=== PATIENT | male | born 1955 | race Caucasian/White ===

== ENCOUNTER 2020-02-01 18:04 | Inpatient (IN) ==
[2020-02-01] MEDS ORDERED: SODIUM CHLORIDE 0.9% 1000ML 500 ML IV ONE (18:27)
[2020-02-01] MEDS ORDERED: CEFEPIME 2,000 MG/20 ML VIAL IV STA (18:27)
[2020-02-01] MEDS ORDERED: MULTI-VITAMIN INFUSION 10 ML, THIAMINE HCL 100 MG, FOLIC ACID 1 MG in SODIUM CHLORIDE 0... IV ONE (18:27)
[2020-02-01] MEDS ORDERED: DIPHTHERIA/TETANUS/PERTUSSIS 0.5 ML SYR/VIAL IM ONE (18:28)
--- NOTE | 2020-02-01 18:33 | Emergency Department Note ---
Impression & Plan Cellulitis of left lower leg, Acute hyperglycemia, Acute hyponatremia, Alcohol abuse ED Provider Note NAME: SLADE MENDOZA AGE: 64 SEX: M : 1955 ARRIVES VIA: Walk-In INFORMANT: [Patient][family] ED PROVIDER(S): [Ochoa Tucker MD] CHIEF COMPLAINT: Infection HISTORY OF PRESENT ILLNESS: The patient is a 64-year-old male who is diabetic. He is not on any medications and has not seen a doctor in some time. The patient apparently noticed some blisters on his left anterior foot about a week ago. The blisters broke open and he has been wearing socks for 4 days. Today, his significant other noticed he was wearing socks, this was somewhat unusual, she took off his sock and noticed the redness. The patient denies fever. He states that he does not have any pain in the area because he has severe neuropathy. There has been no cough or congestion or chest pain. No abdominal pain. The patient states that he does drink alcohol daily and typically, goes to a 30 pack of beer every 2 days. He did drink beer today and he states he feels intoxicated. Apparently, 1 of the patient's family members is a medical provider. A picture was sent to the provider and they referred the patient to the ED for possible hospitalization. Of note, the patient believes he is in need of a tetanus booster. REVIEW OF SYSTEMS: See HPI for pertinent positives and negatives. A total of ten systems were reviewed and were otherwise negative. PMHx/PSHx: See Below SOCIAL HISTORY: See Below. PHYSICAL EXAM: GENERAL: Patient is in no acute distress. HEENT: No acute trauma, normocephalic atraumatic, mucous membranes moist, no nasal congestion, no scleral icterus. NECK: No stridor, no adenopathy, no meningismus, trachea is midline. LUNGS: Clear to auscultation bilaterally, no wheeze, no rhonchi, breath sounds equal. HEART: Mildly tachycardic, regular rhythm, no murmurs. ABDOMEN: Soft, nontender, bowel sounds positive, no hernias, no peritonitis. EXTREMITIES: No cyanosis. The patient has warmth and erythema to the left foot extending to the distal left leg. There are open lesions to the dorsum of the left foot at the area of the ankle. There is some slight oozing of clear fluid. No deformity. No evidence for neurovascular compromise distally in the left lower extremity. NEUROLOGIC: Oriented x 3, she does slur his words slightly, no focal motor deficits. SKIN: No rash, no jaundice, no diaphoresis. DIFFERENTIAL DIAGNOSIS: Sepsis, UTI, pneumonia, metabolic abnormalities, electrolyte abnormalities, cellulitis, osteomyelitis, dehydration, alcohol intoxication, cardiac sources, intracerebral event, toxicologic, neurologic, as well as other pathologies. EMERGENCY DEPARTMENT COURSE/PROCEDURES: ECG: Indication was tachycardia. The ECG shows a normal sinus rhythm with a rate of 93. There is no ST elevation, there is an old inferior infarct and some poor R wave progression. No PVCs. The QTc is 437. Continuous Cardiac Monitoring: An order was placed for continuous cardiac monitoring. The monitor shows a rate of 84 with normal sinus rhythm. MEDICAL DECISION MAKING: There is no leukocytosis. The patient does have a mild anemia with a hemoglobin of 12.7. There is a normal platelet count. No coagulopathy. Sodium somewhat low at 128. Glucose was high at 331. Lactic acid level was somewhat elevated at 3.4, this elevation could be consistent with dehydration, his alcohol use or possibly infection. There was no worrisome liver enzyme elevation. Procalcitonin level was normal. Urinalysis does not show any evidence for infection. Alcohol level was quite high at 269. Left foot CT does not show osteomyelitis, cellulitis was suspected. Chest film does not show pneumonia or CHF. The patient received IV saline. He was given IV saline with multivitamins, thiamine and folate. He received IV insulin, he was given a tetanus booster IM. He was given IV cefepime as empiric antibiotic coverage. The patient's tachycardia has improved. He is resting comfortably. I do think he requires a hospital stay. He is dehydrated, he is diabetic with a high sugar. He has a significant left foot cellulitis. I spoke to the patient, I talked with case management. The on-call hospitalist was consulted. Past Med/Surg History Medical History Alcohol abuse (Acute) Diabetes mellitus Neuropathy Social History Smoking Status: Unknown if ever smoked Allergies Allergies Allergy/AdvReac Type Severity Reaction Status Date / Time No Known Allergies Allergy Unverified 02/01/20 19:05 Home Meds Home Medications Medication Instructions Recorded Confirmed No Known Home Medications 02/01/20 02/01/20 Results & Data (ED) Vital Signs Vital Signs - 24 hr 02/01/20 18:06 02/01/20 19:00 02/01/20 19:06 Temperature 37.3 C Temperature Source Oral Pulse Rate 104 H Pulse Rate [Apical] 92 H Pulse Rate from SpO2 Sensor Respiratory Rate 20 17 Respiratory Effort / Characteristics Non-Labored Respiratory Depth Normal Blood Pressure 132/78 Blood Pressure [Left Arm] 148/80 H Blood Pressure Mean 96 Blood Pressure Mean [Left Arm] 102 Blood Pressure Position [Left Arm] Pulse Oximetry 97 98 98 Oxygen Delivery Method Room Air Room Air Room Air Sepsis Recent Fever Within 48 Hours No Sepsis New/Unexplained Change in Mental Status No Sepsis Action Taken by Nursing No Action Required 02/01/20 19:30 02/01/20 20:00 02/01/20 20:30 Temperature Temperature Source Pulse Rate 84 88 85 Pulse Rate [Apical] Pulse Rate from SpO2 Sensor 91 H 88 84 Respiratory Rate 19 21 12 Respiratory Effort / Characteristics Respiratory Depth Blood Pressure 142/77 H 128/72 116/67 Blood Pressure [Left Arm] Blood Pressure Mean 92 98 80 Blood Pressure Mean [Left Arm] Blood Pressure Position [Left Arm] Pulse Oximetry 98 98 98 Oxygen Delivery Method Room Air Room Air Room Air Sepsis Recent Fever Within 48 Hours Sepsis New/Unexplained Change in Mental Status Sepsis Action Taken by Nursing 02/01/20 20:55 02/01/20 21:05 02/01/20 21:06 Temperature Temperature Source Pulse Rate 89 Pulse Rate [Apical] 90 Pulse Rate from SpO2 Sensor 93 H 90 Respiratory Rate 16 12 Respiratory Effort / Characteristics Respiratory Depth Blood Pressure 149/81 H 143/82 H Blood Pressure [Left Arm] 143/82 H Blood Pressure Mean 90 96 Blood Pressure Mean [Left Arm] 102 Blood Pressure Position [Left Arm] Sitting Pulse Oximetry 97 97 98 Oxygen Delivery Method Room Air Sepsis Recent Fever Within 48 Hours Sepsis New/Unexplained Change in Mental Status Sepsis Action Taken by Nursing 02/01/20 21:30 Temperature Temperature Source Pulse Rate 93 H Pulse Rate [Apical] Pulse Rate from SpO2 Sensor Respiratory Rate 15 Respiratory Effort / Characteristics Respiratory Depth Blood Pressure 149/82 H Blood Pressure [Left Arm] Blood Pressure Mean 89 Blood Pressure Mean [Left Arm] Blood Pressure Position [Left Arm] Pulse Oximetry Oxygen Delivery Method Sepsis Recent Fever Within 48 Hours Sepsis New/Unexplained Change in Mental Status Sepsis Action Taken by [facility] Medications Current Medication List: was personally reviewed by me Laboratory Data Attestation: I reviewed the patient's lab results. Result diagrams: 02/01/20 18:42 02/01/20 18:42 Lab Results 02/01/20 02/01/20 02/01/20 Range/Units 18:14 18:42 18:42 WBC (4.8-10.8) K/uL RBC (4.7-6.1) M/uL Hgb (14.0-18.0) g/dL Hct (42-52) % MCV (80-100) fL MCH (25-34) pg MCHC (32-36) g/dL RDW Std Deviation (36.4-46.3) fL RDW Coeff of Mau (11.5-14.5) % Plt Count (130-400) K/uL MPV (7.4-10.4) fL Immature Gran % (Auto) % Neut % (Auto) % Lymph % (Auto) % [place] % (Auto) % Eos % (Auto) % Baso % (Auto) % Neut # (Auto) (1.4-6.5) K/uL Lymph # (Auto) (1.2-3.4) K/uL [place] # (Auto) (0.11-0.59) K/uL Eos # (Auto) (0-0.5) K/uL Baso # (Auto) (0-0.2) K/uL Immature Gran # (Auto) (0.00-0.02) K/uL PT (9.0-12.0) Seconds INR (0.9-1.1) APTT (21.0-31.0) Seconds PTT Ratio Sodium (136-145) mmol/L Potassium (3.5-5.1) mmol/L Chloride (98-107) mmol/L Carbon Dioxide (21-32) mmol/L Anion Gap (3-11) BUN (7-18) mg/dl Creatinine (0.6-1.4) mg/dl Est Cr Clr Drug Dosing Est GFR ( Amer) Est GFR (Non-Af Amer) BUN/Creatinine Ratio (10-20) Glucose (70-99) mg/dl POC Glucose (70-99) mg/dl Lactate (0.4-2.0) mmol/L Calcium (8.5-10.1) mg/dl Magnesium (1.8-2.4) mg/dl Total Bilirubin (0.2-1) mg/dl AST (15-37) U/L ALT (12-78) U/L Alkaline Phosphatase (45-117) U/L Total Protein (6.4-8.2) gm/dl Albumin (3.4-5.0) gm/dl Globulin (2.5-4.0) gm/dl Albumin/Globulin Ratio (0.9-2) Beta-Hydroxybutyric Acd (0.2-2.81) mg/dl Procalcitonin < 0.05 (0-0.5) ng/ml Urine Color Yellow Urine Appearance Clear (Clear) Urine pH 5.0 (4.5-7.5) Ur Specific Helix 1.017 (1.000-1.030) Urine Protein Negative (Negative) Urine Glucose (UA) 3+ H (Negative) Urine Ketones Negative (Negative) Urine Blood Trace H (Negative) Urine Nitrite Negative (Negative) Urine Bilirubin Negative (Negative) Urine Urobilinogen Negative (Negative) Ur Leukocyte Esterase Negative (Negative) Urine WBC (Auto) 0 (0-5) /hpf Urine RBC (Auto) 0-4 (0-4) /hpf U Hyaline Cast (Auto) 0 (0-5) /lpf U Epithel Cells (Auto) 0-5 (0-5) /lpf Urine Bacteria (Auto) Negative (Negative) Ethyl Alcohol mg/dL 269.5 H (0-3) mg/dl 02/01/20 02/01/20 02/01/20 Range/Units 18:42 18:42 18:42 WBC 4.95 (4.8-10.8) K/uL RBC 4.13 L (4.7-6.1) M/uL Hgb 12.7 L (14.0-18.0) g/dL Hct 34.3 L (42-52) % MCV 83.1 (80-100) fL MCH 30.8 (25-34) pg MCHC 37.0 H (32-36) g/dL RDW Std Deviation 36.7 (36.4-46.3) fL RDW Coeff of Mau 12.1 (11.5-14.5) % Plt Count 181 (130-400) K/uL MPV 8.9 (7.4-10.4) fL Immature Gran % (Auto) 0.8 % Neut % (Auto) 55.0 % Lymph % (Auto) 29.7 % [place] % (Auto) 10.1 % Eos % (Auto) 4.2 % Baso % (Auto) 0.2 % Neut # (Auto) 2.72 (1.4-6.5) K/uL Lymph # (Auto) 1.47 (1.2-3.4) K/uL [place] # (Auto) 0.50 (0.11-0.59) K/uL Eos # (Auto) 0.21 (0-0.5) K/uL Baso # (Auto) 0.01 (0-0.2) K/uL Immature Gran # (Auto) 0.04 H (0.00-0.02) K/uL PT 10.5 (9.0-12.0) Seconds INR 1.0 (0.9-1.1) APTT 27.9 (21.0-31.0) Seconds PTT Ratio 1.0 Sodium 128 L (136-145) mmol/L Potassium 4.1 (3.5-5.1) mmol/L Chloride 95 L (98-107) mmol/L Carbon Dioxide 21 (21-32) mmol/L Anion Gap 12.0 H (3-11) BUN 9 (7-18) mg/dl Creatinine 0.96 (0.6-1.4) mg/dl Est Cr Clr Drug Dosing Not Reportable Est GFR ( Amer) 97.1 Est GFR (Non-Af Amer) 83.8 BUN/Creatinine Ratio 9.3 L (10-20) Glucose 331 H* (70-99) mg/dl POC Glucose (70-99) mg/dl Lactate (0.4-2.0) mmol/L Calcium 8.7 (8.5-10.1) mg/dl Magnesium 1.9 (1.8-2.4) mg/dl Total Bilirubin 0.3 (0.2-1) mg/dl AST 20 (15-37) U/L ALT 30 (12-78) U/L Alkaline Phosphatase 78 (45-117) U/L Total Protein 7.6 (6.4-8.2) gm/dl Albumin 2.9 L (3.4-5.0) gm/dl Globulin 4.7 H (2.5-4.0) gm/dl Albumin/Globulin Ratio 0.6 L (0.9-2) Beta-Hydroxybutyric Acd 6.19 H (0.2-2.81) mg/dl Procalcitonin (0-0.5) ng/ml Urine Color Urine Appearance (Clear) Urine pH (4.5-7.5) Ur Specific Helix (1.000-1.030) Urine Protein (Negative) Urine Glucose (UA) (Negative) Urine Ketones (Negative) Urine Blood (Negative) Urine Nitrite (Negative) Urine Bilirubin (Negative) Urine Urobilinogen (Negative) Ur Leukocyte Esterase (Negative) Urine WBC (Auto) (0-5) /hpf Urine RBC (Auto) (0-4) /hpf U Hyaline Cast (Auto) (0-5) /lpf U Epithel Cells (Auto) (0-5) /lpf Urine Bacteria (Auto) (Negative) Ethyl Alcohol mg/dL (0-3) mg/dl 02/01/20 02/01/20 02/01/20 Range/Units 18:42 21:15 21:15 WBC (4.8-10.8) K/uL RBC (4.7-6.1) M/uL Hgb (14.0-18.0) g/dL Hct (42-52) % MCV (80-100) fL MCH (25-34) pg MCHC (32-36) g/dL RDW Std Deviation (36.4-46.3) fL RDW Coeff of Mau (11.5-14.5) % Plt Count (130-400) K/uL MPV (7.4-10.4) fL Immature Gran % (Auto) % Neut % (Auto) % Lymph % (Auto) % [place] % (Auto) % Eos % (Auto) % Baso % (Auto) % Neut # (Auto) (1.4-6.5) K/uL Lymph # (Auto) (1.2-3.4) K/uL [place] # (Auto) (0.11-0.59) K/uL Eos # (Auto) (0-0.5) K/uL Baso # (Auto) (0-0.2) K/uL Immature Gran # (Auto) (0.00-0.02) K/uL PT (9.0-12.0) Seconds INR (0.9-1.1) APTT (21.0-31.0) Seconds PTT Ratio Sodium (136-145) mmol/L Potassium (3.5-5.1) mmol/L Chloride (98-107) mmol/L Carbon Dioxide (21-32) mmol/L Anion Gap (3-11) BUN (7-18) mg/dl Creatinine (0.6-1.4) mg/dl Est Cr Clr Drug Dosing Est GFR ( Amer) Est GFR (Non-Af Amer) BUN/Creatinine Ratio (10-20) Glucose (70-99) mg/dl POC Glucose 153 H (70-99) mg/dl Lactate 3.4 H* 3.2 H* (0.4-2.0) mmol/L Calcium (8.5-10.1) mg/dl Magnesium (1.8-2.4) mg/dl Total Bilirubin (0.2-1) mg/dl AST (15-37) U/L ALT (12-78) U/L Alkaline Phosphatase (45-117) U/L Total Protein (6.4-8.2) gm/dl Albumin (3.4-5.0) gm/dl Globulin (2.5-4.0) gm/dl Albumin/Globulin Ratio (0.9-2) Beta-Hydroxybutyric Acd (0.2-2.81) mg/dl Procalcitonin (0-0.5) ng/ml Urine Color Urine Appearance (Clear) Urine pH (4.5-7.5) Ur Specific Helix (1.000-1.030) Urine Protein (Negative) Urine Glucose (UA) (Negative) Urine Ketones (Negative) Urine Blood (Negative) Urine Nitrite (Negative) Urine Bilirubin (Negative) Urine Urobilinogen (Negative) Ur Leukocyte Esterase (Negative) Urine WBC (Auto) (0-5) /hpf Urine RBC (Auto) (0-4) /hpf U Hyaline Cast (Auto) (0-5) /lpf U Epithel Cells (Auto) (0-5) /lpf Urine Bacteria (Auto) (Negative) Ethyl Alcohol mg/dL (0-3) mg/dl 02/01/20 Range/Units 21:20 WBC (4.8-10.8) K/uL RBC (4.7-6.1) M/uL Hgb (14.0-18.0) g/dL Hct (42-52) % MCV (80-100) fL MCH (25-34) pg MCHC (32-36) g/dL RDW Std Deviation (36.4-46.3) fL RDW Coeff of Mau (11.5-14.5) % Plt Count (130-400) K/uL MPV (7.4-10.4) fL Immature Gran % (Auto) % Neut % (Auto) % Lymph % (Auto) % [place] % (Auto) % Eos % (Auto) % Baso % (Auto) % Neut # (Auto) (1.4-6.5) K/uL Lymph # (Auto) (1.2-3.4) K/uL [place] # (Auto) (0.11-0.59) K/uL Eos # (Auto) (0-0.5) K/uL Baso # (Auto) (0-0.2) K/uL Immature Gran # (Auto) (0.00-0.02) K/uL PT (9.0-12.0) Seconds INR (0.9-1.1) APTT (21.0-31.0) Seconds PTT Ratio Sodium (136-145) mmol/L Potassium (3.5-5.1) mmol/L Chloride (98-107) mmol/L Carbon Dioxide (21-32) mmol/L Anion Gap (3-11) BUN (7-18) mg/dl Creatinine (0.6-1.4) mg/dl Est Cr Clr Drug Dosing Est GFR ( Amer) Est GFR (Non-Af Amer) BUN/Creatinine Ratio (10-20) Glucose (70-99) mg/dl POC Glucose 182 H (70-99) mg/dl Lactate (0.4-2.0) mmol/L Calcium (8.5-10.1) mg/dl Magnesium (1.8-2.4) mg/dl Total Bilirubin (0.2-1) mg/dl AST (15-37) U/L ALT (12-78) U/L Alkaline Phosphatase (45-117) U/L Total Protein (6.4-8.2) gm/dl Albumin (3.4-5.0) gm/dl Globulin (2.5-4.0) gm/dl Albumin/Globulin Ratio (0.9-2) Beta-Hydroxybutyric Acd (0.2-2.81) mg/dl Procalcitonin (0-0.5) ng/ml Urine Color Urine Appearance (Clear) Urine pH (4.5-7.5) Ur Specific Helix (1.000-1.030) Urine Protein (Negative) Urine Glucose (UA) (Negative) Urine Ketones (Negative) Urine Blood (Negative) Urine Nitrite (Negative) Urine Bilirubin (Negative) Urine Urobilinogen (Negative) Ur Leukocyte Esterase (Negative) Urine WBC (Auto) (0-5) /hpf Urine RBC (Auto) (0-4) /hpf U Hyaline Cast (Auto) (0-5) /lpf U Epithel Cells (Auto) (0-5) /lpf Urine Bacteria (Auto) (Negative) Ethyl Alcohol mg/dL (0-3) mg/dl Administered Medications Discontinued Medications Diphtheria/Pertussis/Tetanus Vacc (Adacel) 0.5 ml IM .ONCE ONE Stop: 02/01/20 18:29 Last Admin: 02/01/20 19:11 Dose: 0.5 ml Documented by: [id number] Multivitamins 10 ml/ Thiamine HCl 100 mg/ Folic Acid 1 mg/Sodium Chloride 1, 011.2 mls @ 1,011.2 mls/hr IV .Q1H ONE Stop: 02/01/20 19:26 Last Infusion: 02/01/20 20:10 Dose: 0 mls/hr Documented by: [id number] Admin: 02/01/20 19:10 Dose: 1,011.2 mls/hr Documented by: [id number] Sodium Chloride (Nss 1000ml) 500 mls @ 999 mls/hr IV .Q31M ONE Stop: 02/01/20 18:57 Last Infusion: 02/01/20 19:38 Dose: 0 mls/hr Documented by: [id number] Admin: 07/28/20 19:07 Dose: 999 mls/hr Documented by: [id number] Cefepime HCl (Maxipime) 2,000 mg in 20 mls @ 5 mls/min IV NOW STA; Protocol Stop: 02/01/20 18:30 Last Admin: 02/01/20 19:08 Dose: 5 mls/min Documented by: [id number] Insulin Human Regular (Novolin R U-100 Per Unit) 8 units IV NOW STA Stop: 02/01/20 19:26 Last Admin: 02/01/20 19:56 Dose: 8 units Documented by: [id number] Cosigned by: [id number] Imaging Data Radiologist's Impression: XR chest 1V portable HISTORY: 64 years-old Male SEPSIS acute sepsis COMPARISON: Chest radiograph 01/12/2012 TECHNIQUE: Portable AP view of the chest FINDINGS: Mild cardiomegaly. Prior median sternotomy. No pneumothorax, pleural effusion or overt pulmonary edema. Minimal left lung base scarring/atelectasis. Degenerative changes of the shoulders and spine. IMPRESSION: No acute process. CT foot LT wo con HISTORY: 64 years-old Male poss osteo acute left foot pain and swelling with possible osteomyelitis COMPARISON: None TECHNIQUE: Multiple axial CT images of the left foot were obtained without the use of IV contrast. A dose lowering technique was used consistent with the principals of LIMA. FINDINGS: There is moderate diffuse subcutaneous edema of the lower leg, ankle and foot. Arterial calcifications. No drainable fluid collection. The tendons and ligaments are better evaluated by MRI. No gross ligamentous tear identified. No large joint effusion. Mild to moderate multifocal osteoarthritis. Corticated ossification adjacent to the medial malleolus is suggestive of remote avulsion fracture. There is marginal spurring of the medial talar dome without definitive osteochondral defect. Moderate sized enthesophyte of the calcaneus. No acute fracture, dislocation or osseous erosion to suggest osteomyelitis. Lisfranc articulation is intact. Subcentimeter bone island of the first metatarsal. IMPRESSION: 1. No acute fracture, dislocation or osseous erosion to suggest osteomyelitis. 2. Diffuse subcutaneous edema of the lower leg, foot and ankle suggests cellulitis, venous stasis or lymphedema. No drainable fluid collection. 3. Osteoarthritis as above. Blood Pressure Blood Pressure Findings: Elevated blood pressure Blood Pressure Disposition: further management by hospitalist Discharge Plan Visit Data Chief Complaint: Infection Stated Complaint: WATER BLISTER ON LEFT FOOT ED Provider: Ochoa Tucker Discharge Problem: Cellulitis of left lower leg, Acute hyperglycemia, Acute hyponatremia, Alcohol abuse Patient Disposition: Admitted As Inpatient Condition: Fair Forms Stand Alone Forms: XbyMe Prescriptions Prescriptions: No Action No Known Home Medications RF: 0 Referrals Referrals: PCP,NO [Primary Care Provider] -
[2020-02-01 18:38] LABS: Appearance Urine Clear (Clear); Bilirubin Urine Negative (Negative); Blood Urine Trace (Negative); Color Urine Yellow; Glucose Urine UA 3+ (Negative); Ketones Urine Negative (Negative); Leukocyte Esterase Urine Negative (Negative); Nitrite Urine Negative (Negative); Protein Urine Negative (Negative); Specific Gravity Urine 1.017 (1.000-1.030); Urobilinogen Urine Negative (Negative)
[2020-02-01 18:49] LABS: Bacteria Urine Automated Negative (Negative); Cast Urine Automated 0 /lpf (0-5); Epithelial Cell Urine Auto 0-5 /lpf (0-5); RBC Urine Automated 0-4 /hpf (0-4); WBC Urine Automated 0 /hpf (0-5)
[2020-02-01 18:54] LABS: Basophils # (auto) 0.01 K/uL (0-0.2); Basophils % (auto) 0.2 %; Eosinophils # (auto) 0.21 K/uL (0-0.5); Eosinophils % (auto) 4.2 %; Hematocrit (blood only) 34.3 % (42-52); Hemoglobin 12.7 g/dL (14.0-18.0); Immature Granulocytes # (auto) 0.04 K/uL (0.00-0.02); Immature Granulocytes % (auto) 0.8 %; Lymphocytes # (auto) 1.47 K/uL (1.2-3.4); Lymphocytes % (auto) 29.7 %; Mean Corpuscular Hemoglobin 30.8 pg (25-34); Mean Corpuscular Volume 83.1 fL (80-100); Mean Platelet Volume 8.9 fL (7.4-10.4); Monocytes % (auto) 10.1 %; Neutrophils # (auto) 2.72 K/uL (1.4-6.5); Platelet Count 181 K/uL (130-400); RDW Coefficient of Variation 12.1 % (11.5-14.5); RDW Standard Deviation 36.7 fL (36.4-46.3); Red Blood Count 4.13 M/uL (4.7-6.1); White Blood Count 4.95 K/uL (4.8-10.8)
[2020-02-01 19:04] LABS: Partial Thromboplastin Time 27.9 Seconds (21.0-31.0); Prothrombin Time 10.5 Seconds (9.0-12.0)
--- NOTE | 2020-02-01 19:06 | XRay Report ---
XR chest 1V portable HISTORY: 64 years-old Male SEPSIS acute sepsis COMPARISON: Chest radiograph 01/12/2012 TECHNIQUE: Portable AP view of the chest FINDINGS: Mild cardiomegaly. Prior median sternotomy. No pneumothorax, pleural effusion or overt pulmonary teodora a. Minimal left lung base scarring/atelectasis. Degenerative changes of the shoulders and spine. IMPRESSION: No acute process. ACT 112: Negative or not required by law. The above report was generated using voice recognition software. It may contain grammatical, syntax o r spelling errors. Electronically signed by: Romero Veloz M.D. 02/01/2020 7:04 PM
[2020-02-01 19:17] LABS: Alanine Aminotransferase 30 U/L (12-78); Albumin Globulin Ratio 0.6 (0.9-2); Albumin Level 2.9 gm/dl (3.4-5.0); Alkaline Phosphatase 78 U/L (45-117); Aspartate Aminotransferase 20 U/L (15-37); BUN Creatinine Ratio 9.3 (10-20); Bilirubin,Total 0.3 mg/dl (0.2-1); Blood Urea Nitrogen 9 mg/dl (7-18); Calcium 8.7 mg/dl (8.5-10.1); Carbon Dioxide 21 mmol/L (21-32); Chloride 95 mmol/L (98-107); Est GFR (African American) 97.1; Est GFR (Non-African American) 83.8; Globulin 4.7 gm/dl (2.5-4.0); Glucose 331 mg/dl (70-99); Magnesium 1.9 mg/dl (1.8-2.4); Potassium 4.1 mmol/L (3.5-5.1); Sodium 128 mmol/L (136-145); Total Protein 7.6 gm/dl (6.4-8.2)
[2020-02-01] MEDS ORDERED: NovoLIN-R INSULIN PER UNIT CHARGE IV STA (19:25)
[2020-02-01 19:36] LABS: Beta-Hydroxybutyrate 6.19 mg/dl (0.2-2.81)
--- NOTE | 2020-02-01 21:05 | CT Scan Report ---
CT foot LT wo con HISTORY: 64 years-old Male poss osteo acute left foot pain and swelling with possible osteomyelitis COMPARISON: None TECHNIQUE: Multiple axial CT images of the left foot were obtained without the use of IV contrast. A dose lowering technique was used consistent with the principals of [place]. FINDINGS: There is moderate diffuse subcutaneous edema of the lower leg, ankle and foot. Arterial calcification s. No drainable fluid collection. The tendons and ligaments are better evaluated by MRI. No gross lig amentous tear identified. No large joint effusion. Mild to moderate multifocal osteoarthritis. Corticated ossification adjacent to the medial malleolus is suggestive of remote avulsion fracture. There is marginal spurring of the medial talar dome withou t definitive osteochondral defect. Moderate sized enthesophyte of the calcaneus. No acute fracture, d islocation or osseous erosion to suggest osteomyelitis. Lisfranc articulation is intact. Subcentimete r bone island of the first metatarsal. IMPRESSION: 1. No acute fracture, dislocation or osseous erosion to suggest osteomyelitis. 2. Diffuse subcutaneous edema of the lower leg, foot and ankle suggests cellulitis, venous stasis or lymphedema. No drainable fluid collection. 3. Osteoarthritis as above. ACT 112: Negative or not required by law. The above report was generated using voice recognition software. It may contain grammatical, syntax o r spelling errors. Electronically signed by: Romero Veloz M.D. 02/01/2020 9:04 PM
[2020-02-02] MEDS ORDERED: VANCOMYCIN CONSULT ACTIVE PRN (00:10)
[2020-02-02] MEDS ORDERED: LORazepam 1 MG/2 ML VIAL IV PRN (00:10)
[2020-02-02] MEDS ORDERED: GLUCAGON FOR INJ 1 MG VIAL SQ PRN (00:10)
[2020-02-02] MEDS ORDERED: CARBOHYDRATES FOR HYPOGLYCEMIA PO PRN (00:10)
[2020-02-02] MEDS ORDERED: DEXTROSE 50% 50 ML SYRINGE IV PRN (00:10)
[2020-02-02] MEDS ORDERED: ACETAMINOPHEN 325 MG TAB PO PRN (00:10)
[2020-02-02] MEDS ORDERED: ONDANSETRON INJ 2 MG/ML 2 ML VIAL IV PRN (00:10)
[2020-02-02] MEDS ORDERED: GLUCOSE 10 TABS/TUBE PO PRN (00:10)
[2020-02-02] MEDS ORDERED: GLUCOSE 40% GEL 15 GM TUBE PO PRN (00:10)
[2020-02-02] MEDS ORDERED: VANCOMYCIN HCL 2,000 MG in SODIUM CHLORIDE 0.9% 500 ML IV ONE (00:30)
[2020-02-02] MEDS: FOLIC ACID 1 MG TAB PO SCH ×2 (01:10→07:58)
[2020-02-02] MEDS: THIAMINE HCL 100 MG TAB PO SCH ×2 (01:10→07:59)
[2020-02-02] MEDS: SODIUM CHLORIDE 0.9% 1000ML 1,000 ML IV SCH ×2 (01:12→13:19)
[2020-02-02] MEDS ORDERED: INSULIN HUMAN REGULAR PER UNIT 8 UNITS in SYRINGE 7.92 ML IV ONE ×2 (01:15→17:00)
--- NOTE | 2020-02-02 01:48 | History & Physical Report ---
Date of Service February 01, 2020 Assessment & Plan (1) Cellulitis of left lower leg: Foot infection in diabetic. Afebrile, hemodynamically stable, non-toxic in appearance. No osteomyelitis noted on imaging -Admit to medical floor -Monitor area of redness -Follow cultures -Vancomycin and Cefepime -MRSA nasal swab Present on Admission?: Yes (2) Diabetes mellitus: Longstanding history of DM, not on any medication. Elevated BS on arrival -Check HgbA1C -Lantus 5u BID with ISS, goal blood sugar 100-140 -Diabetes education -Patient will most likely need to be discharged with insulin -ASA and Atorvastatin initiated as well Present on Admission?: Yes (3) Alcohol abuse: (4) CAD (coronary artery disease): Patient denies CP. EKG without ischemic changes. He is currently not on any cardiac medications -AIC and Lipid profile -ASA initiated -Atorvastatin initiated -Patient will most likely need a beta alysia and Panfilo-inhibitor as well as medical followup Present on Admission?: Yes Admission and Anticipated Discharge Date Admission Date: February 01, 2020 History of Present Illness Chief Complaint: foot ulceration Primary Care Provider: NO PCP Sumeet Jean is a 64yo C male with history of DM and CAD s/p CABG x 3V performed in 2003 at [facility]. Patient does not follow with a PCP or take any medications. He does not check his blood sugars or follow a diabetic diet either. He presents today with infection and ulcers of LLE. He reports de veloping blisters on the LLE approximately 1 week ago. The blisters ruptured and then his foot became red and swollen. He denies fevers/chills/body aches/nausea/vomiting/diarrhea/constipation. He denies CP/palpitations/SOB/cough. No concerns for exposure to Covid-19. Patient is a heavy drinker, approximately 15 beers per day. He denies history of EtOH withdrawal symptoms but states that he cannot remember the last time he quit drinking. ER Course: Cefepime, Insulin 8u IV, Banana bag, NSS Allergies Allergy/AdvReac Type Severity Reaction Status Date / Time No Known Allergies Allergy Unverified 02/01/20 19:05 Home Medications Home Medications Medication Instructions Recorded Confirmed Type No Known Home Medications 02/01/20 02/01/20 History Past Med/Surg History Medical History (Updated 02/02/20 @ 01:55 by Roxie Connelly DO) Alcohol abuse (Acute) Diabetes mellitus Neuropathy Surgical History (Updated 02/02/20 @ 01:46 by Roxie Connelly DO) History of coronary artery bypass graft x 3 Family History (Updated 02/02/20 @ 01:46 by Roxie Connelly DO) Other No significant family history Social History (Updated 02/02/20 @ 01:47 by Roxie Connelly DO) Smoking Status: Unknown if ever smoked Hx Alcohol Use: Yes Hx Substance Use: No Review of Systems Review of Systems: All systems reviewed & are unremarkable except as noted in HPI & below Physical Exam Physical Exam: General: patient resting comfortably, NAD, non-toxic in appearance, intoxicated Skin: warm, dry, eschar on LLE dorsum of ankle, redness and warmth of foot, no crepitus/bullae/lymphangitic streaking HEENT: NC/AT, PERRL, EOMI, anicteric sclera, conjunctiva without injection, external ear normal to inspection and nontender, nares patent, moist mucus membranes, dentition intact, no oropharyngeal lesions, neck supple, trachea midline, no LAD, no thyromegaly, no JVD Heart: +S1/S2, regular, no m/r/g Lungs: equal air entry bilaterally, no rales/rhonchi/wheezes Abd: +BS, soft, NT/ND, no masses/organomegaly/ascites Ext: warm, 2+ pulses in UE/LE bilaterally, no clubbing/cyanosis or edema Neuro: nonfocal, patient AA&O x 4, speech intact, no facial droop, moving all extremities on command with equal strength 5/5 Results & Data Results & Data ([facility]) Vital Signs (Past 12 Hours) Vital Signs Temp Pulse Pulse Resp BP BP Pulse Ox 02/01/20 23:00 90 26 H 133/79 02/01/20 22:30 87 14 139/75 97 02/01/20 22:00 90 15 127/81 97 02/01/20 21:30 93 H 15 149/82 H 02/01/20 21:06 89 12 143/82 H 98 02/01/20 21:05 149/81 H 97 02/01/20 20:55 90 16 143/82 H 97 02/01/20 20:30 85 12 116/67 98 02/01/20 20:00 88 21 128/72 98 02/01/20 19:30 84 19 142/77 H 98 02/01/20 19:06 92 H 17 148/80 H 98 02/01/20 19:00 98 02/01/20 18:06 37.3 C 104 H 20 132/78 97 Laboratory Results Lab Results 02/01/20 02/01/20 02/01/20 Range/Units 18:14 18:42 18:42 WBC (4.8-10.8) K/uL RBC (4.7-6.1) M/uL Hgb (14.0-18.0) g/dL Hct (42-52) % MCV (80-100) fL MCH (25-34) pg MCHC (32-36) g/dL RDW Std Deviation (36.4-46.3) fL RDW Coeff of Mau (11.5-14.5) % Plt Count (130-400) K/uL MPV (7.4-10.4) fL Immature Gran % (Auto) % Neut % (Auto) % Lymph % (Auto) % Ramsey % (Auto) % Eos % (Auto) % Baso % (Auto) % Neut # (Auto) (1.4-6.5) K/uL Lymph # (Auto) (1.2-3.4) K/uL Ramsey # (Auto) (0.11-0.59) K/uL Eos # (Auto) (0-0.5) K/uL Baso # (Auto) (0-0.2) K/uL Immature Gran # (Auto) (0.00-0.02) K/uL PT (9.0-12.0) Seconds INR (0.9-1.1) APTT (21.0-31.0) Seconds PTT Ratio Sodium (136-145) mmol/L Potassium (3.5-5.1) mmol/L Chloride (98-107) mmol/L Carbon Dioxide (21-32) mmol/L Anion Gap (3-11) BUN (7-18) mg/dl Creatinine (0.6-1.4) mg/dl Est Cr Clr Drug Dosing Est GFR ( Amer) Est GFR (Non-Af Amer) BUN/Creatinine Ratio (10-20) Glucose (70-99) mg/dl POC Glucose (70-99) mg/dl Lactate (0.4-2.0) mmol/L Calcium (8.5-10.1) mg/dl Magnesium (1.8-2.4) mg/dl Total Bilirubin (0.2-1) mg/dl AST (15-37) U/L ALT (12-78) U/L Alkaline Phosphatase (45-117) U/L Total Protein (6.4-8.2) gm/dl Albumin (3.4-5.0) gm/dl Globulin (2.5-4.0) gm/dl Albumin/Globulin Ratio (0.9-2) Beta-Hydroxybutyric Acd (0.2-2.81) mg/dl Procalcitonin < 0.05 (0-0.5) ng/ml Urine Color Yellow Urine Appearance Clear (Clear) Urine pH 5.0 (4.5-7.5) Ur Specific Drummond 1.017 (1.000-1.030) Urine Protein Negative (Negative) Urine Glucose (UA) 3+ H (Negative) Urine Ketones Negative (Negative) Urine Blood Trace H (Negative) Urine Nitrite Negative (Negative) Urine Bilirubin Negative (Negative) Urine Urobilinogen Negative (Negative) Ur Leukocyte Esterase Negative (Negative) Urine WBC (Auto) 0 (0-5) /hpf Urine RBC (Auto) 0-4 (0-4) /hpf U Hyaline Cast (Auto) 0 (0-5) /lpf U Epithel Cells (Auto) 0-5 (0-5) /lpf Urine Bacteria (Auto) Negative (Negative) Ethyl Alcohol mg/dL 269.5 H (0-3) mg/dl 02/01/20 02/01/20 02/01/20 Range/Units 18:42 18:42 18:42 WBC 4.95 (4.8-10.8) K/uL RBC 4.13 L (4.7-6.1) M/uL Hgb 12.7 L (14.0-18.0) g/dL Hct 34.3 L (42-52) % MCV 83.1 (80-100) fL MCH 30.8 (25-34) pg MCHC 37.0 H (32-36) g/dL RDW Std Deviation 36.7 (36.4-46.3) fL RDW Coeff of Mau 12.1 (11.5-14.5) % Plt Count 181 (130-400) K/uL MPV 8.9 (7.4-10.4) fL Immature Gran % (Auto) 0.8 % Neut % (Auto) 55.0 % Lymph % (Auto) 29.7 % Ramsey % (Auto) 10.1 % Eos % (Auto) 4.2 % Baso % (Auto) 0.2 % Neut # (Auto) 2.72 (1.4-6.5) K/uL Lymph # (Auto) 1.47 (1.2-3.4) K/uL Ramsey # (Auto) 0.50 (0.11-0.59) K/uL Eos # (Auto) 0.21 (0-0.5) K/uL Baso # (Auto) 0.01 (0-0.2) K/uL Immature Gran # (Auto) 0.04 H (0.00-0.02) K/uL PT 10.5 (9.0-12.0) Seconds INR 1.0 (0.9-1.1) APTT 27.9 (21.0-31.0) Seconds PTT Ratio 1.0 Sodium 128 L (136-145) mmol/L Potassium 4.1 (3.5-5.1) mmol/L Chloride 95 L (98-107) mmol/L Carbon Dioxide 21 (21-32) mmol/L Anion Gap 12.0 H (3-11) BUN 9 (7-18) mg/dl Creatinine 0.96 (0.6-1.4) mg/dl Est Cr Clr Drug Dosing Not Reportable Est GFR ( Amer) 97.1 Est GFR (Non-Af Amer) 83.8 BUN/Creatinine Ratio 9.3 L (10-20) Glucose 331 H* (70-99) mg/dl POC Glucose (70-99) mg/dl Lactate (0.4-2.0) mmol/L Calcium 8.7 (8.5-10.1) mg/dl Magnesium 1.9 (1.8-2.4) mg/dl Total Bilirubin 0.3 (0.2-1) mg/dl AST 20 (15-37) U/L ALT 30 (12-78) U/L Alkaline Phosphatase 78 (45-117) U/L Total Protein 7.6 (6.4-8.2) gm/dl Albumin 2.9 L (3.4-5.0) gm/dl Globulin 4.7 H (2.5-4.0) gm/dl Albumin/Globulin Ratio 0.6 L (0.9-2) Beta-Hydroxybutyric Acd 6.19 H (0.2-2.81) mg/dl Procalcitonin (0-0.5) ng/ml Urine Color Urine Appearance (Clear) Urine pH (4.5-7.5) Ur Specific Drummond (1.000-1.030) Urine Protein (Negative) Urine Glucose (UA) (Negative) Urine Ketones (Negative) Urine Blood (Negative) Urine Nitrite (Negative) Urine Bilirubin (Negative) Urine Urobilinogen (Negative) Ur Leukocyte Esterase (Negative) Urine WBC (Auto) (0-5) /hpf Urine RBC (Auto) (0-4) /hpf U Hyaline Cast (Auto) (0-5) /lpf U Epithel Cells (Auto) (0-5) /lpf Urine Bacteria (Auto) (Negative) Ethyl Alcohol mg/dL (0-3) mg/dl 02/01/20 02/01/20 02/01/20 Range/Units 18:42 21:15 21:15 WBC (4.8-10.8) K/uL RBC (4.7-6.1) M/uL Hgb (14.0-18.0) g/dL Hct (42-52) % MCV (80-100) fL MCH (25-34) pg MCHC (32-36) g/dL RDW Std Deviation (36.4-46.3) fL RDW Coeff of Mau (11.5-14.5) % Plt Count (130-400) K/uL MPV (7.4-10.4) fL Immature Gran % (Auto) % Neut % (Auto) % Lymph % (Auto) % Ramsey % (Auto) % Eos % (Auto) % Baso % (Auto) % Neut # (Auto) (1.4-6.5) K/uL Lymph # (Auto) (1.2-3.4) K/uL Ramsey # (Auto) (0.11-0.59) K/uL Eos # (Auto) (0-0.5) K/uL Baso # (Auto) (0-0.2) K/uL Immature Gran # (Auto) (0.00-0.02) K/uL PT (9.0-12.0) Seconds INR (0.9-1.1) APTT (21.0-31.0) Seconds PTT Ratio Sodium (136-145) mmol/L Potassium (3.5-5.1) mmol/L Chloride (98-107) mmol/L Carbon Dioxide (21-32) mmol/L Anion Gap (3-11) BUN (7-18) mg/dl Creatinine (0.6-1.4) mg/dl Est Cr Clr Drug Dosing Est GFR ( Amer) Est GFR (Non-Af Amer) BUN/Creatinine Ratio (10-20) Glucose (70-99) mg/dl POC Glucose 153 H (70-99) mg/dl Lactate 3.4 H* 3.2 H* (0.4-2.0) mmol/L Calcium (8.5-10.1) mg/dl Magnesium (1.8-2.4) mg/dl Total Bilirubin (0.2-1) mg/dl AST (15-37) U/L ALT (12-78) U/L Alkaline Phosphatase (45-117) U/L Total Protein (6.4-8.2) gm/dl Albumin (3.4-5.0) gm/dl Globulin (2.5-4.0) gm/dl Albumin/Globulin Ratio (0.9-2) Beta-Hydroxybutyric Acd (0.2-2.81) mg/dl Procalcitonin (0-0.5) ng/ml Urine Color Urine Appearance (Clear) Urine pH (4.5-7.5) Ur Specific [place] (1.000-1.030) Urine Protein (Negative) Urine Glucose (UA) (Negative) Urine Ketones (Negative) Urine Blood (Negative) Urine Nitrite (Negative) Urine Bilirubin (Negative) Urine Urobilinogen (Negative) Ur Leukocyte Esterase (Negative) Urine WBC (Auto) (0-5) /hpf Urine RBC (Auto) (0-4) /hpf U Hyaline Cast (Auto) (0-5) /lpf U Epithel Cells (Auto) (0-5) /lpf Urine Bacteria (Auto) (Negative) Ethyl Alcohol mg/dL (0-3) mg/dl 02/01/20 02/01/20 02/02/20 Range/Units 21:20 23:57 01:14 WBC (4.8-10.8) K/uL RBC (4.7-6.1) M/uL Hgb (14.0-18.0) g/dL Hct (42-52) % MCV (80-100) fL MCH (25-34) pg MCHC (32-36) g/dL RDW Std Deviation (36.4-46.3) fL RDW Coeff of Mau (11.5-14.5) % Plt Count (130-400) K/uL MPV (7.4-10.4) fL Immature Gran % (Auto) % Neut % (Auto) % Lymph % (Auto) % Ramsey % (Auto) % Eos % (Auto) % Baso % (Auto) % Neut # (Auto) (1.4-6.5) K/uL Lymph # (Auto) (1.2-3.4) K/uL Ramsey # (Auto) (0.11-0.59) K/uL Eos # (Auto) (0-0.5) K/uL Baso # (Auto) (0-0.2) K/uL Immature Gran # (Auto) (0.00-0.02) K/uL PT (9.0-12.0) Seconds INR (0.9-1.1) APTT (21.0-31.0) Seconds PTT Ratio Sodium (136-145) mmol/L Potassium (3.5-5.1) mmol/L Chloride (98-107) mmol/L Carbon Dioxide (21-32) mmol/L Anion Gap (3-11) BUN (7-18) mg/dl Creatinine (0.6-1.4) mg/dl Est Cr Clr Drug Dosing Est GFR ( Amer) Est GFR (Non-Af Amer) BUN/Creatinine Ratio (10-20) Glucose (70-99) mg/dl POC Glucose 182 H 314 H* 331 H* (70-99) mg/dl Lactate (0.4-2.0) mmol/L Calcium (8.5-10.1) mg/dl Magnesium (1.8-2.4) mg/dl Total Bilirubin (0.2-1) mg/dl AST (15-37) U/L ALT (12-78) U/L Alkaline Phosphatase (45-117) U/L Total Protein (6.4-8.2) gm/dl Albumin (3.4-5.0) gm/dl Globulin (2.5-4.0) gm/dl Albumin/Globulin Ratio (0.9-2) Beta-Hydroxybutyric Acd (0.2-2.81) mg/dl Procalcitonin (0-0.5) ng/ml Urine Color Urine Appearance (Clear) Urine pH (4.5-7.5) Ur Specific Drummond (1.000-1.030) Urine Protein (Negative) Urine Glucose (UA) (Negative) Urine Ketones (Negative) Urine Blood (Negative) Urine Nitrite (Negative) Urine Bilirubin (Negative) Urine Urobilinogen (Negative) Ur Leukocyte Esterase (Negative) Urine WBC (Auto) (0-5) /hpf Urine RBC (Auto) (0-4) /hpf U Hyaline Cast (Auto) (0-5) /lpf U Epithel Cells (Auto) (0-5) /lpf Urine Bacteria (Auto) (Negative) Ethyl Alcohol mg/dL (0-3) mg/dl PG Care Time/CCT Total # of Minutes Spent Total Time Spent with Patient: Total time spent is greater than 50% in coordination of care (as documented) at patient's floor/unit and/or counseling patient: Coding Level of Care Code 37769 Initial Inpt Care Lvl 3 Diagnoses Cellulitis of left lower leg L03.116 Diabetes mellitus E11.628 Diabetes mellitus type: type 2 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 transplanted heart: [place] heart Associated angina: without angina Qualified Code(s): I25.10 - Atherosclerotic heart disease of [place] coronary artery without angina pectoris
[2020-02-02] MEDS: CEFEPIME 2,000 MG in SYRINGE 7.5 ML IV SCH ×3 (04:37→20:01)
[2020-02-02] MEDS ORDERED: INSULIN GLARGINE SOLOSTAR 100 UNITS/ML 3 ML PEN SC SCH ×2 (05:15→09:00)
[2020-02-02] MEDS: ASPIRIN 81 MG ECTAB PO SCH (07:58)
[2020-02-02] MEDS: ATORVASTATIN 40 MG TAB PO SCH (07:59)
[2020-02-02] MEDS: INSULIN ASPART 100 UNITS/ML 3 ML PEN SC SCH ×2 (08:01→12:04)
[2020-02-02 08:28] LABS: Basophils # (auto) 0.01 K/uL (0-0.2); Basophils % (auto) 0.2 %; Eosinophils # (auto) 0.17 K/uL (0-0.5); Eosinophils % (auto) 3.2 %; Hematocrit (blood only) 36.1 % (42-52); Hemoglobin 13.6 g/dL (14.0-18.0); Immature Granulocytes # (auto) 0.06 K/uL (0.00-0.02); Immature Granulocytes % (auto) 1.1 %; Lymphocytes # (auto) 0.91 K/uL (1.2-3.4); Lymphocytes % (auto) 17.2 %; Mean Corpuscular Hemoglobin 31.6 pg (25-34); Mean Corpuscular Hgb Conc 37.7 g/dL (32-36); Mean Platelet Volume 8.9 fL (7.4-10.4); Monocytes # (auto) 0.69 K/uL (0.11-0.59); Neutrophils # (auto) 3.46 K/uL (1.4-6.5); Neutrophils % (auto) 65.3 %; Platelet Count 172 K/uL (130-400); RDW Coefficient of Variation 12.3 % (11.5-14.5); RDW Standard Deviation 37.6 fL (36.4-46.3)
--- NOTE | 2020-02-02 08:55 | Hospitalist Progress Note ---
Date of Service February 02, 2020 Assessment & Plan (1) Cellulitis of left lower leg: Foot infection in diabetic. Afebrile, hemodynamically stable, remains non-toxic in appearance. No osteomyelitis noted on imaging Patient will need wound debridement wound consult is in place -Vancomycin and Cefepime Foot X Ray 02/01/20 IMPRESSION: 1. No acute fracture, dislocation or osseous erosion to suggest osteomyelitis. 2. Diffuse subcutaneous edema of the lower leg, foot and ankle suggests celluli tis, venous stasis or lymphedema. No drainable fluid collection. 3. Osteoarthritis (2) Diabetes mellitus: Longstanding history of DM, not on any medication. Previously was on Actos and another oral medication elevated BS on arrival -HgbA1C is 10.7 on presentation -Lantus 8u BID with ISS, goal blood sugar 100-140 -Diabetes education unclear whether will need basal bolus with discharge versus attempt to return to oral medications once his infection is treated -Patient will most likely need to be discharged with insulin -ASA and Atorvastatin initiated as well (3) Alcohol abuse: Patient was counseled on alcohol cessation on presentation his alcohol level was elevated how alcohol will impede his ability to control his glucose well (4) CAD (coronary artery disease): Patient denies CP. EKG without ischemic changes. He is currently not on any cardiac medications -Surprisingly normalized lipid profile -ASA initiated -Atorvastatin initiated -Patient will most likely need a beta alysia and Panfilo-inhibitor as well as medical followup Admission and Anticipated Discharge Date Admission Date: February 01, 2020 Subjective Patient is seen in the company of his he has a fairly large eschar on his left foot with surrounding erythema. He has more glucose intolerance and states he in the past he was on Actos and another oral medication that metformin did not work for him. He has marked hypertensive and tachycardia during the day. He otherwise has no new complaints or problems Review of Systems Review of Systems: Mild distress and fatigue no headache, blurry or double vision no speech or swallowing issues no chest pain, pressure or palpitations no shortness of breath, cough or wheezes no abdominal pain, nausea or vomiting, diarrhea or constipation no dysuria, hematuria or frequency Patient has trigger fingers in both hands involving the third fourth and fifth fingers with difficulty extending them no back pain, CVA tenderness or radicular pain Large dark hardened area where the ankle and foot meet on the left foot with smaller ulcerations in the first MTP area of the left foot no focal signs of weakness or numbness or altered sensation no complaints or anxiety or depression Physical Exam Physical Exam: The patient appeared well nourished and normally developed. Vital signs as documented. Head exam is normocephalic atraumatic no scleral icterus Neck is without JVD, thyromegaly, or carotid bruits. Lungs are clear to auscultation, no focal loss of breath sounds Cardiac exam, Rhythm is regular.. No murmurs, rubs or gallops. Abdominal exam reveals normal bowel sounds, soft non tender, no masses Extremities capillary refill is preserved bilaterally the left foot has a large eschar approximately 6 x 3 cm with the ankle and the foot meet anteriorly. The patient also has some small ulcerations least to the first MTP area of the left foot. There is significant surrounding erythema Neurologic exam is alert and oriented, no focal loss of strength or sensation Skin is with eschars and cellulitis to his left foot diabetic foot infection Psychologically is without concerns for anxiety or depression Results & Data Results & Data ([facility]) Vital Signs (Past 12 Hours) Vital Signs Temp Pulse Pulse Resp BP BP BP 02/02/20 07:36 98.2 F 107 H 20 186/93 H 184/93 H 02/02/20 00:00 97.7 F 92 H 20 160/90 H 02/01/20 23:46 90 02/01/20 23:00 90 26 H 133/79 02/01/20 22:30 87 14 139/75 02/01/20 22:00 90 15 127/81 02/01/20 21:30 93 H 15 149/82 H 02/01/20 21:06 89 12 143/82 H 02/01/20 21:05 149/81 H 02/01/20 20:55 90 16 143/82 H Pulse Ox 02/02/20 07:36 96 02/02/20 00:00 98 02/01/20 23:46 02/01/20 23:00 02/01/20 22:30 97 02/01/20 22:00 97 02/01/20 21:30 02/01/20 21:06 98 02/01/20 21:05 97 02/01/20 20:55 97 PG Care Time/CCT Total # of Minutes Spent Total Time Spent with Patient: Total time spent is greater than 50% in coordination of care (as documented) at patient's floor/unit and/or counseling patient: Coding Level of Care Code 63036 Subseq Hosp Care Lvl 3 Diagnoses Cellulitis of left lower leg L03.116 Diabetes mellitus E11.628 Diabetes mellitus complication detail: with other skin complication Diabetes mellitus complication status: with skin complications Diabetes mellitus usp insulin use: without termination clerk use Diabetes mellitus type: type 2 Alcohol abuse F10.10 CAD (coronary artery disease) I25.10 Associated angina: without angina Coronary Disease-Associated Artery/Lesion type: [place] artery [place] vs. transplanted heart: [place] heart (1) Diabetes mellitus Diabetes mellitus complication detail: with other skin complication Diabetes mellitus complication status: with skin complications Diabetes mellitus usp insulin use: without usp use Diabetes mellitus type: type 2 Qualified Code(s): E11.628 - Type 2 diabetes mellitus with other skin complications (2) CAD (coronary artery disease) Associated angina: without angina Coronary Disease-Associated Artery/Lesion type: [place] artery [place] vs. transplanted heart: [place] heart Qualified Code(s): I25.10 - Atherosclerotic heart disease of [place] coronary artery without angina pectoris
[2020-02-02] MEDS ORDERED: PHARMACY GLYCEMIC MGMT CONSULT PRN (09:00)
[2020-02-02 09:11] LABS: Albumin Level 2.8 gm/dl (3.4-5.0); BUN Creatinine Ratio 9.1 (10-20); Bilirubin Direct 0.1 mg/dl (0-0.2); Bilirubin,Total 0.4 mg/dl (0.2-1); Calcium 8.6 mg/dl (8.5-10.1); Creatinine Clr Calc Pharmacy 96.5 ml/min; Est GFR (Non-African American) 92.3; Potassium 4.6 mmol/L (3.5-5.1); Total Protein 7.6 gm/dl (6.4-8.2)
[2020-02-02] MEDS ORDERED: INSULIN GLARGINE SOLOSTAR 100 UNITS/ML 3 ML PEN SC ONE ×2 (09:14→21:00)
[2020-02-02 09:32] LABS: Beta-Hydroxybutyrate 12.09 mg/dl (0.2-2.81)
[2020-02-02 10:05] LABS: Vitamin B12 1022 pg/ml (211-911)
[2020-02-02 10:06] LABS: Folate (Folic Acid) > 24.00 ng/ml (>5.38)
[2020-02-02 10:07] LABS: Estimated Average Glucose 260 mg/dl; Hemoglobin A1C 10.7 % (4.5-5.6)
[2020-02-02] MEDS: VANCOMYCIN HCL 1,250 MG in SODIUM CHLORIDE 0.9% 250 ML IV SCH ×2 (11:27→23:35)
--- NOTE | 2020-02-02 12:11 | Pharmacy Report ---
Pharmacy Glycemic Short Note 2 - Date of Service February 02, 2020 - Glycemic Short BSG Results (Last 24 hours): 02/01/20 02/01/20 02/01/20 18:42 21:15 21:20 Glucose 331 H* POC Glucose 153 H 182 H 02/01/20 02/02/20 02/02/20 23:57 01:14 04:42 Glucose POC Glucose 314 H* 331 H* 348 H* 02/02/20 02/02/20 02/02/20 04:43 05:00 05:01 Glucose POC Glucose 299 H 255 H 271 H 02/02/20 02/02/20 02/02/20 07:43 07:44 08:12 Glucose 342 H* POC Glucose 357 H* 363 H* 02/02/20 02/02/20 11:47 11:48 Glucose POC Glucose 320 H* 282 H OUTPATIENT ANTIDIABETIC REGIMEN: * N/A * A1c 10.7% ASSESSMENT: * Mr. Jean is admitted for left lower leg cellulitis, currently being treated with vancomycin and cefepime * BSGs elevated overnight into the 300s, patient is currently not on diabetes medications at home * Consulted this AM after patient received 8 units of lantus, will add an additional 12 units this morning with a scale for PM up to dosing between we ight based stress of 2 and 3 * Correction Factor and Carb ratio were tightened to CF 20 CR 10 this morning, will continue for now, may need to tighten CR PLAN FOR INPATIENT GLYCEMIC CONTROL: * Basal insulin * Lantus 20 units this AM, up to 14 units tonight * Bolus insulin * NovoLog per scale ACHS or Q6hrs while NPO * Goal Range: Low 110 mg/dL - High 140 mg/dL * Correction Factor: 20 mg/dL/unit * Nutritional / Prandial insulin per carb ratio of 1 unit per 10 grams CHO consumed PLAN FOR DISCHARGE: * A1c 10.7%, goal <8% * Can consider triple therapy regimen * More specific recommendation to follow
[2020-02-02] MEDS ORDERED: lisinopriL 5 MG TAB PO ONE (12:45)
--- NOTE | 2020-02-02 13:01 | Pharmacy Report ---
Pharmacy Abx Initial Consult - Date of Service February 02, 2020 - Pharmacy Dosing Scope Date of Consult: 02/01 Consultation requested by: Dr. Connelly Pharmacy is consulted to initiate vancomycin IV dosing therapy, order appropriate labs and adjust drug dose/frequency. - Subjective The patient is a 64 year old M admitted on 02/01/20 21:38. - Objective Height: 6 ft Weight: 83.9 kg Vital Signs (Past 12hrs): Vital Signs Temp Pulse Pulse Resp BP BP Pulse Ox 02/02/20 11:41 36.6 C 98 H 20 175/110 H 202/93 H 96 02/02/20 09:12 106 H 02/02/20 07:36 36.8 C 107 H 20 186/93 H 184/93 H 96 Lab Results (24hrs): Laboratory Tests (24 Hours) 02/02/20 02/02/20 02/01/20 08:12 08:12 18:42 WBC 5.30 Neut # (Auto) 3.46 Creatinine 0.86 0.96 Est Cr Clr Drug Dosing 96.5 Not Reportable Procalcitonin 02/01/20 02/01/20 18:42 18:42 WBC 4.95 Neut # (Auto) 2.72 Creatinine Est Cr Clr Drug Dosing Procalcitonin < 0.05 Micro Results: 02/01/20 18:44 Aerobic Blood Culture - Pending Blood Anaerobic Blood Culture - Pending 02/01/20 18:42 Aerobic Blood Culture - Pending Blood Anaerobic Blood Culture - Pending - Assessment & Plan Assessment 64 year old M admitted with left lower leg cellulitis, normal wbc, afebrile, procalcitonin negative. Plan Vancomycin + cefepime for treatment of cellulitis Vancomycin IV * Estimated PK Parameters: Vd 0.7 L/kg, Barber [id number] hr-1, t1/2 8.2 hr * Loading dose: 2000 mg (23 mg/kg) * Maintenance dose: 1250 mg IV (15 mg/kg) every 12 hours * Goal trough level for cellulitis: 10-20 mcg/mL * Trough ordered for 02/02 @1130 Cefepime dosed appropriately for renal function. Pharmacy will continue to follow and will adjust dose/frequency as necessary. Thank you.
[2020-02-02] MEDS: INSULIN HUMAN REGULAR SC SCH ×2 (17:19→21:29)
[2020-02-02] MEDS: INSULIN HUMAN NPH SC SCH (17:21)
[2020-02-03] MEDS: INSULIN HUMAN REGULAR SC SCH ×6 (00:05→21:21)
[2020-02-03] MEDS ORDERED: INSULIN HUMAN REGULAR SC SCH (02:00)
[2020-02-03] MEDS: CEFEPIME 2,000 MG in SYRINGE 7.5 ML IV SCH ×3 (04:42→19:50)
[2020-02-03] MEDS: THIAMINE HCL 100 MG TAB PO SCH (08:39)
[2020-02-03] MEDS: ATORVASTATIN 40 MG TAB PO SCH (08:39)
[2020-02-03] MEDS: ASPIRIN 81 MG ECTAB PO SCH (08:39)
[2020-02-03] MEDS: lisinopriL 5 MG TAB PO SCH (08:39)
[2020-02-03] MEDS: FOLIC ACID 1 MG TAB PO SCH (08:39)
[2020-02-03] MEDS: INSULIN HUMAN NPH SC SCH ×2 (08:43→17:45)
--- NOTE | 2020-02-03 08:52 | Electrocardiogram Report ---
Test Reason : Blood Pressure : / mmHG Vent. Rate : 093 BPM Atrial Rate : 093 BPM P-R Int : 152 ms QRS Dur : 096 ms QT Int : 352 ms P-R-T Axes : 019 -40 018 degrees QTc Int : 437 ms Normal sinus rhythm Left axis deviation Inferior infarct (cited on or before 12-JAN-2012) Cannot rule out Anterior infarct , age undetermined Abnormal ECG When compared with ECG of 12-JAN-2012 11:52, QRS axis Shifted left Confirmed by Brian Hsu ([id number]) on 02/03/2020 8:51:59 AM Referred By: REFERRED SELF Confirmed By:Brian Hsu
[2020-02-03] MEDS ORDERED: VANCOMYCIN TROUGH ONE (11:30)
--- NOTE | 2020-02-03 11:54 | Ultrasound Report ---
US arterial duplex LE LT CLINICAL HISTORY: leg wound evaluate for arterial insufficiency COMPARISON STUDY: No previous studies for comparison. FINDINGS: Ankle brachial indices measured 1.3 and the right and 1.2 on the left. There is scattered atheromatous plaque present. There was triphasic flow throughout the left lower ex tremity. No high velocity jets were delineated. IMPRESSION: No ultrasonographic evidence of left lower extremity arterial stenosis. ACT 112: Negative or not required by law. Electronically signed by: Trevor Gray M.D. 02/03/2020 11:52 AM
[2020-02-03] MEDS: cloNIDine HCL 0.1 MG TAB PO PRN (11:59)
[2020-02-03] MEDS: VANCOMYCIN HCL 1,250 MG in SODIUM CHLORIDE 0.9% 250 ML IV SCH (12:00)
--- NOTE | 2020-02-03 13:34 | Pharmacy Report ---
Pharmacy Glycemic Short Note 2 - Date of Service February 03, 2020 - Glycemic Short BSG Results (Last 24 hours): 02/02/20 02/02/20 02/02/20 16:34 16:35 20:14 POC Glucose 355 H* 339 H* 138 H 02/03/20 02/03/20 02/03/20 00:05 04:18 07:44 POC Glucose 98 98 152 H 02/03/20 02/03/20 11:36 11:38 POC Glucose 308 H* 284 H OUTPATIENT ANTIDIABETIC REGIMEN: * N/A * A1c 10.7% ASSESSMENT: 02/02 * Transitioned patient from novolog + lantus to NPH + regular as patient will be on Reli[employer] products outpatient * BSGs improving from yesterday, Fasting this morning 152, patient received an 8 unit IV dose with dinner for hyperglycemia * Will continue NPH scale for now until insulin needs more clear * Lunch BSG again elevated, breakfast insulin administered @0842, regular insulin from AM likely still active so hesitate to make further adjustments, however, do think patient could tolerate slight tightening of carb ratio to 5. 02/01 * Mr. Jean is admitted for left lower leg cellulitis, currently being treated with vancomycin and cefepime * BSGs elevated overnight into the 300s, patient is currently not on diabetes medications at home * Consulted this AM after patient received 8 units of lantus, will add an additional 12 units this morning with a scale for PM up to dosing between weight based stress of 2 and 3 * Correction Factor and Carb ratio were tightened to CF 20 CR 10 this morning, will continue for now, may need to tighten CR PLAN FOR INPATIENT GLYCEMIC CONTROL: * Basal insulin * NPH scale 14-20 units * Bolus insulin * NovoLog per scale ACHS or Q6hrs while NPO * Goal Range: Low 110 mg/dL - High 140 mg/dL * Correction Factor: 15 mg/dL/unit * Nutritional / Prandial insulin per carb ratio of 1 unit per 5 grams CHO consumed PLAN FOR DISCHARGE: * A1c 10.7%, goal <8% * Can consider triple therapy regimen * More specific recommendation to follow
--- NOTE | 2020-02-03 13:39 | Pharmacy Report ---
Pharmacy Abx Dose Short Note - Date of Service February 03, 2020 - Assessment & Plan Assessment 64 year old M receiving vancomycin and cefepime for left lower leg cellulitis Day #2 of antimicrobial therapy. Plan Vancomycin * Trough level of 10.7 mcg/mL is therapeutic, however would like to aim for ~15 mcg/ml * Change to 1500 mg IV every 12 hours * Goal trough level 10-20 mcg/mL * Trough ordered for 02/04 @0930 Pharmacy will continue to follow and will adjust dose/frequency as necessary. Thank you.
[2020-02-03] MEDS: COLLAGENASE OINT 30 GM TUBE EXT SCH (14:32)
--- NOTE | 2020-02-03 14:51 | Wound Consultation ---
Date of Consultation February 03, 2020 Assessment & Plan (1) Diabetic ulcer of left foot due to type 2 diabetes mellitus: This is a 64-year-old male with diabetic foot ulcers of the left dorsal foot and left dorsal great toe. The wounds are currently unstageable sacral with thick eschar. This point no debridement can be done. We will apply Santyl. Continue antibiotics as we await cultures. Thank you for allowing me to participate in the care of this patient. Please do not hesitate to call with any questions. I will continue to follow. History of Present Illness Reason for Consultation: Cellulitis Attending Physician: Arnaldo Jung MD History of Present Illness This is a 64-year-old male with a history of CAD, type 2 diabetes and alcohol abuse is admitted with cellulitis of his left foot. Patient is currently on Vanco and Zosyn. He states wound is been there for approximately a week and started as blisters. He denies fevers or chills at this time. He is just gotten his vascular studies and results were not available. Allergies Allergy/AdvReac Type Severity Reaction Status Date / Time No Known Allergies Allergy Unverified 02/01/20 19:05 Home Medications Home Medications Medication Instructions Recorded Confirmed Type No Known Home Medications 02/01/20 02/01/20 History Patient History Medical History Alcohol abuse (Acute) Diabetes mellitus Neuropathy Surgical History History of coronary artery bypass graft x 3 Family History Other No significant family history Social History Smoking Status: Unknown if ever smoked Second Hand Exposure: No; Do You Dip or Chew Tobacco: No; Tobacco Cessation Education Requested by Patient: No Hx Alcohol Use: Yes Alcohol type: beer Hx Substance Use: No Preferred Language: [place] 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 Beliefs That Will Affect Care: None Current Living Situation: Spouse Other Information That Helps Us Care for You: No Feels Safe at Home: Yes Safety Concerns: Feels Safe At This Time Review of Systems Review of Systems: All systems reviewed & are unremarkable except as noted in HPI & below Physical Exam Physical Exam: Temp Pulse Resp BP Pulse Ox 36.8 C 94 H 18 138/74 99 02/03/20 11:30 02/03/20 11:30 02/03/20 11:30 02/03/20 14:28 02/03/20 11:30 Constitutional: WD/WN, vitals as above Eyes: PERRL, conjunctivae normal, anicteric sclerae ENMT: external ear and nose normal, oropharynx normal Ears: no hearing impairment Respiratory: normal respiratory effort, lungs clear to auscultation Cardiovascular: RRR, no murmur, no edema Gastrointestinal (Abdomen): normal bowel sounds, soft, nontender, no hepatosplenomegaly Skin: Patient with diabetic foot ulcers of the left dorsal foot and left dorsal great toe. Wound measurements recorded in nursing documentation. Wounds are covered with thick fibrous slough. Periwound is intact and erythematous. There is moderate drainage no foul odors. Neurologic: awake; not confused Psychiatric: A+Ox3, euthymic affect Results & Data Vital Signs (Past 12 Hours) Vital Signs Temp Pulse Pulse Resp BP BP Pulse Ox 02/03/20 14:28 138/74 02/03/20 11:30 36.8 C 94 H 18 199/91 H 196/101 H 99 02/03/20 07:40 85 02/03/20 07:05 36.5 C 76 18 179/87 H 99 02/03/20 04:28 36.6 C 76 18 160/82 H 98 Laboratory Results 02/03/20 02/03/20 02/03/20 Range/Units 11:38 11:36 11:16 POC Glucose 284 H 308 H* (70-99) mg/dl Vancomycin Trough 10.7 (See Comment) mcg/ml 02/03/20 02/03/20 02/03/20 Range/Units 07:44 04:18 00:05 POC Glucose 152 H 98 98 (70-99) mg/dl Vancomycin Trough (See Comment) mcg/ml 02/02/20 02/02/20 02/02/20 Range/Units 20:14 16:35 16:34 POC Glucose 138 H 339 H* 355 H* (70-99) mg/dl Vancomycin Trough (See Comment) mcg/ml Diagnostic Findings CT of the left foot showed no signs of osteomyelitis. PG Care Time/CCT Total # of Minutes Spent Total Time Spent with Patient: Total time spent is greater than 50% in coordination of care (as documented) at patient's floor/unit and/or counseling patient: Coding Level of Care Code 44562 Inpt Consult Level 3 Diagnoses Diabetic ulcer of left foot due to type 2 diabetes mellitus E11.621; L97.529
--- NOTE | 2020-02-03 17:54 | Hospitalist Progress Note ---
Date of Service February 03, 2020 Assessment & Plan (1) Cellulitis of left lower leg: Foot infection in diabetic. Afebrile, hemodynamically stable, remains non-toxic in appearance. No osteomyelitis noted on imaging Wound Care Physician Did See Iker Munoz on both wounds -Continues with vancomycin and Cefepime blood cultures negative to date Foot X Ray 02/01/20 IMPRESSION: 1. No acute fracture, dislocation or osseous erosion to suggest osteomyelitis. 2. Diffuse subcutaneous edema of the lower leg, foot and ankle suggests cellulitis, venous stasis or lymphedema. No drainable fluid collection. 3. Osteoarthritis (2) Diabetes mellitus: Longstanding history of DM, not on any medication. Previously was on Actos and another oral medication elevated BS on arrival -HgbA1C is 10.7 on presentation -Lantus 8u BID with ISS, goal blood sugar 100-140 -Diabetes education unclear whether will need basal bolus with discharge diabetic education is begun -ASA and Atorvastatin initiated as well (3) Alcohol abuse: Patient was counseled on alcohol cessation on presentation his alcohol level was elevated how alcohol will impede his ability to control his glucose well (4) CAD (coronary artery disease): Patient denies CP. EKG without ischemic changes. He is currently not on any cardiac medications -Surprisingly normalized lipid profile -ASA initiated -Atorvastatin initiated -Patient will most likely need a beta alysia and Panfilo-inhibitor as well as medical followup Admission and Anticipated Discharge Date Admission Date: February 01, 2020 Subjective This patient states he feels better he is getting an insulin injection during my visit I instructed him he is likely going to be on insulin for some time he seemed open to this discussion Review of Systems Review of Systems: Mild distress and fatigue no headache, blurry or double vision no speech or swallowing issues no chest pain, pressure or palpitations no shortness of breath, cough or wheezes no abdominal pain, nausea or vomiting, diarrhea or constipation no dysuria, hematuria or frequency Patient has trigger fingers in both hands involving the third fourth and fifth fingers with difficulty extending them no back pain, CVA tenderness or radicular pain Large dark hardened area where the ankle and foot meet on the left foot with smaller ulcerations in the first MTP area of the left foot no focal signs of weakness or numbness or altered sensation no complaints or anxiety or depression Physical Exam Physical Exam: The patient appeared well nourished and normally developed. Vital signs as documented. Head exam is normocephalic atraumatic no scleral icterus Neck is without JVD, thyromegaly, or carotid bruits. Lungs are clear to auscultation, no focal loss of breath sounds Cardiac exam, Rhythm is regular.. No murmurs, rubs or gallops. Abdominal exam reveals normal bowel sounds, soft non tender, no masses Extremities capillary refill is preserved bilaterally the left foot has a large eschar approximately 6 x 3 cm with the ankle and the foot meet anteriorly. The patient also has some small ulcerations least to the first MTP area of the left foot. There is significant surrounding erythema Neurologic exam is alert and oriented, no focal loss of strength or sensation Skin is with eschars and cellulitis to his left foot diabetic foot infection Psychologically is without concerns for anxiety or depression Results & Data Results & Data ([facility]) Vital Signs (Past 12 Hours) Vital Signs Temp Pulse Pulse Resp BP BP Pulse Ox 02/03/20 16:45 76 02/03/20 15:37 98.1 F 77 18 134/84 97 02/03/20 14:28 138/74 02/03/20 11:30 98.2 F 94 H 18 199/91 H 196/101 H 99 02/03/20 07:40 85 02/03/20 07:05 97.7 F 76 18 179/87 H 99 PG Care Time/CCT Total # of Minutes Spent Total Time Spent with Patient: Total time spent is greater than 50% in coordination of care (as documented) at patient's floor/unit and/or counseling patient: Coding Level of Care Code 49025 Subseq Hosp Care Lvl 3 Diagnoses Cellulitis of left lower leg L03.116 Diabetes mellitus E11.628 Diabetes mellitus type: type 2 Diabetes mellitus retirement insulin use: without exterminator helper use Diabetes mellitus complication status: with skin complications Diabetes mellitus complication detail: with other skin complication Alcohol abuse F10.10 CAD (coronary artery disease) I25.10 Coronary Disease-Associated Artery/Lesion type: [place] artery [place] vs. transplanted heart: [place] heart Associated angina: without angina (1) Diabetes mellitus Diabetes mellitus type: type 2 Diabetes mellitus exterminator helper insulin use: without retirement use Diabetes mellitus complication status: with skin complications Diabetes mellitus complication detail: with other skin complication Qualified Code(s): E11.628 - Type 2 diabetes mellitus with other skin complications (2) CAD (coronary artery disease) Coronary Disease-Associated Artery/Lesion type: [place] artery [place] vs. transplanted heart: [place] heart Associated angina: without angina Qualified Code(s): I25.10 - Atherosclerotic heart disease of [place] coronary artery without angina pectoris
[2020-02-03] MEDS: ENOXAPARIN INJ 40 MG/0.4 ML SYR SQ SCH (19:49)
[2020-02-03] MEDS: VANCOMYCIN HCL 1,500 MG in SODIUM CHLORIDE 0.9% 500 ML IV SCH (21:24)
[2020-02-04] MEDS ORDERED: INSULIN HUMAN REGULAR SC SCH (02:00)
[2020-02-04] MEDS: CEFEPIME 2,000 MG in SYRINGE 7.5 ML IV SCH ×3 (03:49→21:18)
[2020-02-04] MEDS: INSULIN HUMAN NPH SC SCH ×2 (08:44→17:12)
[2020-02-04] MEDS: INSULIN HUMAN REGULAR SC SCH ×4 (08:45→21:19)
--- NOTE | 2020-02-04 08:45 | Hospitalist Progress Note ---
Date of Service February 04, 2020 Assessment & Plan (1) Cellulitis of left lower leg: Foot infection in diabetic. Afebrile, hemodynamically stable, remains non-toxic in appearance. No osteomyelitis noted on imaging Wound Care Physician Did See Iker Munoz on both wounds -Continues with vancomycin and Cefepime blood cultures negative to date, will milli go home on bactrim ds or augmentin Foot X Ray 02/01/20 IMPRESSION: 1. No acute fracture, dislocation or osseous erosion to suggest osteomyelitis. 2. Diffuse subcutaneous edema of the lower leg, foot and ankle suggests cellulitis, venous stasis or lymphedema. No drainable fluid collection. 3. Osteoarthritis (2) Diabetes mellitus: Longstanding history of DM, not on any medication. Previously was on Actos and another oral medication elevated BS on arrival -HgbA1C is 10.7 on presentation -pt now on nph and ssi with glycemic pharmacy management -Diabetes education -ASA and Atorvastatin initiated as well (3) Alcohol abuse: Patient was counseled on alcohol cessation on presentation his alcohol level was elevated how alcohol will impede his ability to control his glucose well (4) CAD (coronary artery disease): Patient denies CP. EKG without ischemic changes. He is currently not on any cardiac medications -Surprisingly normalized lipid profile -ASA initiated -Atorvastatin initiated -Patient will most likely need a beta alysia and Panfilo-inhibitor as well as medical followup Admission and Anticipated Discharge Date Admission Date: February 01, 2020 Subjective This patient states he feels better but he is worried about the variability in control of his glucoses, he is willing to come to wound care clinic as an ouupt, he has no other new complatins Review of Systems Review of Systems: Mild distress and fatigue no headache, blurry or double vision no speech or swallowing issues no chest pain, pressure or palpitations no shortness of breath, cough or wheezes no abdominal pain, nausea or vomiting, diarrhea or constipation no dysuria, hematuria or frequency Patient has trigger fingers in both hands involving the third fourth and fifth fingers with difficulty extending them no back pain, CVA tenderness or radicular pain the eschar on his left foot is being treated with santyl and gentle debridement, with smaller ulcerations in the first MTP area of the left foot no focal signs of weakness or numbness or altered sensation no complaints or anxiety or depression Physical Exam Physical Exam: The patient appeared well nourished and normally developed. Vital signs as documented. Head exam is normocephalic atraumatic no scleral icterus Neck is without JVD, thyromegaly, or carotid bruits. Lungs are clear to auscultation, no focal loss of breath sounds Cardiac exam, Rhythm is regular.. No murmurs, rubs or gallops. Abdominal exam reveals normal bowel sounds, soft non tender, no masses Extremities capillary refill is preserved bilaterally the left foot has a large eschar approximately 6 x 3 cm with the ankle and the foot meet anteriorly. wound care has performed some debridement. The patient also has some small ulcerations least to the first MTP area of the left foot. There is significant surrounding erythema Neurologic exam is alert and oriented, no focal loss of strength or sensation Skin is with eschars and cellulitis to his left foot diabetic foot infection Psychologically is without concerns for anxiety or depression Results & Data Results & Data ([facility]) Vital Signs (Past 12 Hours) Vital Signs Temp Pulse Pulse Resp BP BP Pulse Ox 02/04/20 07:17 98.1 F 69 18 159/80 H 99 02/04/20 04:31 98.2 F 73 18 177/97 H 99 02/04/20 01:10 77 02/03/20 23:06 98.2 F 78 18 161/79 H 97 PG Care Time/CCT Total # of Minutes Spent Total Time Spent with Patient: Total time spent is greater than 50% in co ordination of care (as documented) at patient's floor/unit and/or counseling patient: Coding Level of Care Code 40498 Subseq Hosp Care Lvl 3 Diagnoses Cellulitis of left lower leg L03.116 Diabetes mellitus E11.628 Diabetes mellitus complication detail: with other skin complication Diabetes mellitus complication status: with skin complications 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 transplanted heart: [place] heart Qualified Code(s): I25.10 - Atherosclerotic heart disease of [place] coronary artery without angina pectoris
[2020-02-04] MEDS: ATORVASTATIN 40 MG TAB PO SCH (08:52)
[2020-02-04] MEDS: THIAMINE HCL 100 MG TAB PO SCH (08:52)
[2020-02-04] MEDS: lisinopriL 5 MG TAB PO SCH (08:52)
[2020-02-04] MEDS: FOLIC ACID 1 MG TAB PO SCH (08:52)
[2020-02-04] MEDS: ASPIRIN 81 MG ECTAB PO SCH (08:53)
[2020-02-04] MEDS: COLLAGENASE OINT 30 GM TUBE EXT SCH (08:53)
[2020-02-04 09:32] LABS: Hematocrit (blood only) 35.5 % (42-52); Hemoglobin 12.7 g/dL (14.0-18.0); Mean Corpuscular Hemoglobin 30.3 pg (25-34); Mean Corpuscular Hgb Conc 35.8 g/dL (32-36); Mean Corpuscular Volume 84.7 fL (80-100); Mean Platelet Volume 8.8 fL (7.4-10.4); Platelet Count 158 K/uL (130-400); Red Blood Count 4.19 M/uL (4.7-6.1); White Blood Count 4.96 K/uL (4.8-10.8)
[2020-02-04 09:59] LABS: BUN Creatinine Ratio 13.7 (10-20); Creatinine Clr Calc Pharmacy 95.4 ml/min; Est GFR (African American) 106.5; Est GFR (Non-African American) 91.9
[2020-02-04] MEDS: VANCOMYCIN HCL 1,500 MG in SODIUM CHLORIDE 0.9% 500 ML IV SCH ×2 (10:57→21:19)
[2020-02-04] MEDS ORDERED: INSULIN HUMAN REGULAR PER UNIT 4 UNITS in SYRINGE 0 ML IV ONE (11:45)
--- NOTE | 2020-02-04 13:14 | Pharmacy Report ---
Pharmacy Glycemic Short Note 2 - Date of Service February 04, 2020 - Glycemic Short BSG Results (Last 24 hours): 02/03/20 02/03/20 02/04/20 16:32 20:21 01:52 Glucose POC Glucose 283 H 206 H 72 02/04/20 02/04/20 02/04/20 07:44 09:15 11:33 Glucose 281 H POC Glucose 164 H 323 H* 02/04/20 11:34 Glucose POC Glucose 343 H* OUTPATIENT ANTIDIABETIC REGIMEN: * N/A * A1c 10.7% ASSESSMENT: 02/03: * Mr. Jean received 109 units of insulin yesterday, 39 of basal, 70 of correctional/prandial * BSGs ranged from 98-284 mg/dL, Fasting 152 acceptable, prandial BSGs continue to be high * Titrating regular parameters, cautious as do not want the insulin to stack and cause hypoglycemia * NPH titrating up as well, patient received 25 units this AM, scale for PM 02/02 * Transitioned patient from novolog + lantus to NPH + regular as patient will be on [employer] products outpatient * BSGs improving from yesterday, Fasting this morning 152, patient received an 8 unit IV dose with dinner for hyperglycemia * Will continue NPH scale for now until insulin needs more clear * Lunch BSG again elevated, breakfast insulin administered @0842, regular insulin from AM likely still active so hesitate to make further adjustments, however, do think patient could tolerate slight tightening of carb ratio to 5. 7 * Mr. Jean is admitted for left lower leg cellulitis, currently being treated with vancomycin and cefepime * BSGs elevated overnight into the 300s, patient is currently not on diabetes medications at home * Consulted this AM after patient received 8 units of lantus, will add an additional 12 units this morning with a scale for PM up to dosing between weight based stress of 2 and 3 * Correction Factor and Carb ratio were tightened to CF 20 CR 10 this morning, will continue for now, may need to tighten CR PLAN FOR INPATIENT GLYCEMIC CONTROL: * Basal insulin * NPH scale 20-25 units BIDM * Bolus insulin * NovoLog per scale ACHS or Q6hrs while NPO * Goal Range: Low 110 mg/dL - High 140 mg/dL * Correction Factor: 12 mg/dL/unit * Nutritional / Prandial insulin per carb ratio of 1 unit per 4 grams CHO consumed PLAN FOR DISCHARGE: * A1c 10.7%, goal <8% to start * Can consider triple therapy regimen, if alcohol intake decreases can consider starting metformin XR 500 mg daily with evening meal outpatient * Patient to be on NPH/regular insulin outpatient, at current time prandial BSGs still difficult to control would suggest starting with: * NPH 25 units with breakfast, 20 units with dinner * Regular 10 units with meals, 5 units if low carb, hold if not eating * Correctional regular insulin per scale given: Correctional SSI Blood Sugar 70-150 administer 0 units Blood Sugar 151-200 administer 2 units Blood Sugar 201-250 administer 4 units Blood Sugar 251-300 administer 6 units Blood Sugar 301-350 administer 8 units Blood Sugar 351-400 administer 10 units Blood Sugar >400 administer 12 units and call
--- NOTE | 2020-02-04 13:57 | Wound Progress Note ---
Date of Service February 04, 2020 Assessment & Plan (1) Diabetic ulcer of left foot due to type 2 diabetes mellitus: Wound essentially stable. Wounds and debridement. Topical Xylocaine was applied. After obtaining permission and using a curette, the wounds were debrided of fibrin and slough. Then using a scalpel the wounds were scored. Scant bleeding was controlled pressure. Patient tolerated the procedure well with no complications. This represents a non-excisional debridement less than 20 cm. Continue to dress wounds with Santyl. Wound culture was obtained. We will see patient in the office upon discharge. (2) Cellulitis of left lower leg: Subjective Patient seen at bedside with WOCN. Remains on IV antibiotics. Blood cultures are negative to this point. Patient with no new complaints. Review of Systems Review of Systems: All systems reviewed & are unremarkable except as noted in HPI & below Physical Exam Physical Exam: Temp Pulse Resp BP Pulse Ox 36.5 C 77 18 170/92 H 100 02/04/20 11:01 02/04/20 11:01 02/04/20 11:01 02/04/20 11:15 02/04/20 11:01 Constitutional: WD/WN, vitals as above Skin: Wounds measuring as recorded in nursing documentation. Wounds are covered with thick fibrinous slough. Periwound is erythematous. There is moderate drainage and no foul odor. Neurologic: awake; not confused Psychiatric: A+Ox3, euthymic affect Results & Data Vital Signs (Past 12 Hours) Vital Signs Temp Pulse Pulse Resp BP BP Pulse Ox 02/04/20 11:15 170/92 H 02/04/20 11:01 36.5 C 77 18 200/99 H 100 02/04/20 08:00 77 02/04/20 07:17 36.7 C 69 18 159/80 H 99 02/04/20 04:31 36.8 C 73 18 177/97 H 99 Laboratory Results 02/04/20 02/04/20 02/04/20 Range/Units 11:34 11:33 09:15 WBC (4.8-10.8) K/uL RBC (4.7-6.1) M/uL Hgb (14.0-18.0) g/dL Hct (42-52) % MCV (80-100) fL MCH (25-34) pg MCHC (32-36) g/dL RDW Std Deviation (36.4-46.3) fL RDW Coeff of Mau (11.5-14.5) % Plt Count (130-400) K/uL MPV (7.4-10.4) fL Sodium 135 L (136-145) mmol/L Potassium 4.0 (3.5-5.1) mmol/L Chloride 102 (98-107) mmol/L Carbon Dioxide 31 (21-32) mmol/L Anion Gap 2.0 L (3-11) BUN 12 (7-18) mg/dl Creatinine 0.87 (0.6-1.4) mg/dl Est Cr Clr Drug Dosing 95.4 ml/min Est GFR ( Amer) 106.5 Est GFR (Non-Af Amer) 91.9 BUN/Creatinine Ratio 13.7 (10-20) Glucose 281 H (70-99) mg/dl POC Glucose 343 H* 323 H* (70-99) mg/dl Calcium 9.0 (8.5-10.1) mg/dl 02/04/20 02/04/20 02/04/20 Range/Units 09:08 07:44 01:52 WBC 4.96 (4.8-10.8) K/uL RBC 4.19 L (4.7-6.1) M/uL Hgb 12.7 L (14.0-18.0) g/dL Hct 35.5 L (42-52) % MCV 84.7 (80-100) fL MCH 30.3 (25-34) pg MCHC 35.8 (32-36) g/dL RDW Std Deviation 37.0 (36.4-46.3) fL RDW Coeff of Mau 12.0 (11.5-14.5) % Plt Count 158 (130-400) K/uL MPV 8.8 (7.4-10.4) fL Sodium (136-145) mmol/L Potassium (3.5-5.1) mmol/L Chloride (98-107) mmol/L Carbon Dioxide (21-32) mmol/L Anion Gap (3-11) BUN (7-18) mg/dl Creatinine (0.6-1.4) mg/dl Est Cr Clr Drug Dosing ml/min Est GFR ( Amer) Est GFR (Non-Af Amer) BUN/Creatinine Ratio (10-20) Glucose (70-99) mg/dl POC Glucose 164 H 72 (70-99) mg/dl Calcium (8.5-10.1) mg/dl 02/03/20 02/03/20 Range/Units 20:21 16:32 WBC (4.8-10.8) K/uL RBC (4.7-6.1) M/uL Hgb (14.0-18.0) g/dL Hct (42-52) % MCV (80-100) fL MCH (25-34) pg MCHC (32-36) g/dL RDW Std Deviation (36.4-46.3) fL RDW Coeff of Mau (11.5-14.5) % Plt Count (130-400) K/uL MPV (7.4-10.4) fL Sodium (136-145) mmol/L Potassium (3.5-5.1) mmol/L Chloride (98-107) mmol/L Carbon Dioxide (21-32) mmol/L Anion Gap (3-11) BUN (7-18) mg/dl Creatinine (0.6-1.4) mg/dl Est Cr Clr Drug Dosing ml/min Est GFR ( Amer) Est GFR (Non-Af Amer) BUN/Creatinine Ratio (10-20) Glucose (70-99) mg/dl POC Glucose 206 H 283 H (70-99) mg/dl Calcium (8.5-10.1) mg/dl Diagnostic Findings Ultrasound arterial duplex lower extremity left: SALLY of 1.3 on the right and 1.2 in the left. There is no ultrasonographic evidence of left lower extremity arterial stenosis. PG Care Time/CCT Total # of Minutes Spent Total Time Spent with Patient: Total time spent is greater than 50% in coordination of care (as documented) at patient's floor/unit and/or counseling patient: Coding Level of Care Code 91844 Subseq Hosp Care Lvl 2 Diagnoses Diabetic ulcer of left foot due to type 2 diabetes mellitus E11.621; L97.529 Cellulitis of left lower leg L03.116
[2020-02-04] MEDS: ENOXAPARIN INJ 40 MG/0.4 ML SYR SQ SCH (18:14)
[2020-02-05] MEDS: CEFEPIME 2,000 MG in SYRINGE 7.5 ML IV SCH ×2 (04:03→12:38)
[2020-02-05] MEDS: FOLIC ACID 1 MG TAB PO SCH (08:24)
[2020-02-05] MEDS: ATORVASTATIN 40 MG TAB PO SCH (08:24)
[2020-02-05] MEDS: THIAMINE HCL 100 MG TAB PO SCH (08:24)
[2020-02-05] MEDS: lisinopriL 5 MG TAB PO SCH (08:24)
[2020-02-05] MEDS: ASPIRIN 81 MG ECTAB PO SCH (08:24)
[2020-02-05] MEDS: INSULIN HUMAN REGULAR SC SCH ×4 (08:29→21:03)
[2020-02-05] MEDS: INSULIN HUMAN NPH SC SCH ×2 (08:29→17:00)
[2020-02-05] MEDS ORDERED: VANCOMYCIN TROUGH ONE (09:30)
[2020-02-05 10:13] LABS: BUN Creatinine Ratio 13.2 (10-20); Calcium 9.8 mg/dl (8.5-10.1); Creatinine Clr Calc Pharmacy 80.6 ml/min; Est GFR (African American) 89.2; Est GFR (Non-African American) 76.9; Potassium 4.2 mmol/L (3.5-5.1)
[2020-02-05] MEDS: VANCOMYCIN HCL 1,500 MG in SODIUM CHLORIDE 0.9% 500 ML IV SCH ×3 (10:32→21:52)
[2020-02-05] MEDS: COLLAGENASE OINT 30 GM TUBE EXT SCH (10:33)
[2020-02-05 10:57] LABS: Beta-Hydroxybutyrate 2.74 mg/dl (0.2-2.81)
--- NOTE | 2020-02-05 10:59 | Pharmacy Report ---
Pharmacy Abx Dose Short Note - Date of Service February 05, 2020 - Assessment & Plan Laboratory Tests 02/04/20 02/05/20 02/05/20 09:08 09:30 09:30 WBC 4.96 Creatinine 1.03 Est Cr Clr Drug Dosing 80.6 Vancomycin Trough 15.5 Assessment 64 year old M receiving IV Vancomycin + Cefepime for treatment of cellulitis of LLL Day # 4 of antimicrobial therapy. BC negative to date. Wound culture pending. Per hospitalist, Continue with vancomycin and Cefepime, likely go home on Bactrim DS or Augmentin. Plan Vancomycin * Trough level of 15.5 mcg/mL is therapeutic * Continue dose of 1500 mg IV every 12 hours * Goal trough level for cellulitis : 15 mcg/mL * Further levels will be ordered if patient stay extended to indicate need Cefepime 2g IV Q8H for CrCl > 60ml/min Pharmacy will continue to follow and will adjust dose/frequency as necessary. Thank you.
[2020-02-05] MEDS ORDERED: INSULIN HUMAN REGULAR PER UNIT 5 UNITS in SYRINGE 4.95 ML IV ONE (12:15)
--- NOTE | 2020-02-05 12:40 | Pharmacy Report ---
Pharmacy Glycemic Short Note 2 - Date of Service February 05, 2020 - Glycemic Short BSG Results (Last 24 hours): 02/04/20 02/04/20 02/05/20 16:27 20:31 07:33 Glucose POC Glucose 199 H 76 129 H 02/05/20 02/05/20 02/05/20 09:30 11:37 11:39 Glucose 311 H* POC Glucose 315 H* 341 H* OUTPATIENT ANTIDIABETIC REGIMEN: * N/A * A1c 10.7% ASSESSMENT: 02/04 * Patient received 101 units of insulin yesterday: * 45 units of basal and 56 units of bolus * This morning no changes were made to insulin regimen due to BSGs trending downward yesterday evening and fasting BSG this morning at goal (129 mg/dL). However, similar to yesterday, severe post prandial hyperglycemia noted with lunch. * I have ordered a one time 5 unit IV insulin bolus and will tighten carb coverage with breakfast to avoid BSG spike at lunch. 02/03: * Mr. Jean received 109 units of insulin yesterday, 39 of basal, 70 of correctional/prandial * BSGs ranged from 98-284 mg/dL, Fasting 152 acceptable, prandial BSGs continue to be high * Titrating regular parameters, cautious as do not want the insulin to stack and cause hypoglycemia * NPH titrating up as well, patient received 25 units this AM, scale for PM 02/02 * Transitioned patient from novolog + lantus to NPH + regular as patient will be on [employer] products outpatient * BSGs improving from yesterday, Fasting this morning 152, patient received an 8 unit IV dose with dinner for hyperglycemia * Will continue NPH scale for now until insulin needs more clear * Lunch BSG again elevated, breakfast insulin administered @0842, regular insulin from AM likely still active so hesitate to make further adjustments, however, do think patient could tolerate slight tightening of carb ratio to 5. 02/01 * Mr. Jean is admitted for left lower leg cellulitis, currently being treated with vancomycin and cefepime * BSGs elevated overnight into the 300s, patient is currently not on diabetes medications at home * Consulted this AM after patient received 8 units of lantus, will add an additi onal 12 units this morning with a scale for PM up to dosing between weight based stress of 2 and 3 * Correction Factor and Carb ratio were tightened to CF 20 CR 10 this morning, will continue for now, may need to tighten CR PLAN FOR INPATIENT GLYCEMIC CONTROL: * Basal insulin * NPH scale 25 units with breakfast, 20 units with dinner * Bolus insulin * NovoLog per scale ACHS or Q6hrs while NPO * Goal Range: Low 110 mg/dL - High 140 mg/dL Breakfast: * Correction Factor: 12 mg/dL/unit * Nutritional / Prandial insulin per carb ratio of 1 unit per 3 grams CHO consumed Lunch/dinner/HS: * Correction Factor: 12 mg/dL/unit * Nutritional / Prandial insulin per carb ratio of 1 unit per 4 grams CHO consumed PLAN FOR DISCHARGE: * A1c 10.7%, goal <8% to start * Man consider triple therapy regimen. If alcohol intake decreases, can consider starting metformin XR 500 mg daily with evening meal. * Recommend the following regimen to start: * NPH: 25 units with breakfast, 20 units with dinner * Regular insulin: 15 units with breakfast and lunch, 10 units with dinner (give half dose is low carb meal, hold if not eating) PLUS correctional insulin per scale below: Correctional SSI Blood Sugar 70-150 administer 0 units Blood Sugar 151-200 administer 2 units Blood Sugar 201-250 administer 4 units Blood Sugar 251-300 administer 6 units Blood Sugar 301-350 administer 8 units Blood Sugar 351-400 administer 10 units Blood Sugar >400 administer 12 units and call
[2020-02-05] MEDS: ENOXAPARIN INJ 40 MG/0.4 ML SYR SQ SCH (17:04)
[2020-02-05] MEDS ORDERED: IMIPENEM/CILASTATIN CONSULT ACTIVE PRN (18:23)
--- NOTE | 2020-02-05 18:26 | Hospitalist Progress Note ---
Date of Service February 05, 2020 Assessment & Plan (1) Cellulitis of left lower leg: Foot infection in diabetic. Afebrile, hemodynamically stable, remains non-toxic in appearance. No osteomyelitis noted on imaging Wound Care Physician Did See Iker Munoz on both wounds -Continues with vancomycin and change to imipenem, blood cultures negative to date, check MRI Foot X Ray 02/01/20 IMPRESSION: 1. No acute fracture, dislocation or osseous erosion to suggest osteomyelitis. 2. Diffuse subcutaneous edema of the lower leg, foot and ankle suggests cellulitis, venous stasis or lymphedema. No drainable fluid collection. 3. Osteoarthritis (2) Diabetes mellitus: Longstanding history of DM, not on any medication. Previously was on Actos and another oral medication elevated BS on arrival -HgbA1C is 10.7 on presentation -pt now on nph and ssi with glycemic pharmacy management -Diabetes education -ASA and Atorvastatin initiated as well (3) Alcohol abuse: Patient was counseled on alcohol cessation on presentation his alcohol level was elevated how alcohol will impede his ability to control his glucose well (4) CAD (coronary artery disease): Patient denies CP. EKG without ischemic changes. He is currently not on any cardiac medications -Surprisingly normalized lipid profile -ASA initiated -Atorvastatin initiated -Patient will be started on lisinopril, most likely need a beta alysia Admission and Anticipated Discharge Date Admission Date: February 01, 2020 Subjective This patient states he feels better but he does have some worsening redness to his foot, it seems worse than I remember will add broader gram negative and anaerobic coverage and have mri to eval for osteo he is willing to come to wound care clinic as an outpt after discharge he is comfortable with his glucose management Review of Systems Review of Systems: Mild distress and fatigue no headache, blurry or double vision no speech or swallowing issues no chest pain, pressure or palpitations no shortness of breath, cough or wheezes no abdominal pain, nausea or vomiting, diarrhea or constipation no dysuria, hematuria or frequency Patient has trigger fingers in both hands involving the third fourth and fifth fingers with difficulty extending them no back pain, CVA tenderness or radicular pain the eschar on his left foot is being treated with santyl and gentle debridement, with smaller ulcerations in the first MTP area of the left foot no focal signs of weakness or numbness or altered sensation no complaints or anxiety or depression Physical Exam Physical Exam: The patient appeared well nourished and normally developed. Vital signs as documented. Head exam is normocephalic atraumatic no scleral icterus Neck is without JVD, thyromegaly, or carotid bruits. Lungs are clear to auscultation, no focal loss of breath sounds Cardiac exam, Rhythm is regular.. No murmurs, rubs or gallops. Abdominal exam reveals normal bowel sounds, soft non tender, no masses Extremities capillary refill is preserved bilaterally the left foot has had some debridement of eschar but surrounding erythema is worsened, pt agrees that he feels it looks more reddened, The patient also has small ulcerations least to the first MTP area of the left foot. There is significant surrounding erythema that was outline with a skin marker today, pending mri for osteo evaluation Neurologic exam is alert and oriented, no focal loss of strength or sensation with the exception of diabetic neuropathy Skin is with eschars and cellulitis to his left foot diabetic foot infection Psychologically is without concerns for anxiety or depression Results & Data Results & Data ([facility]) Vital Signs (Past 12 Hours) Vital Signs Temp Pulse Pulse Resp BP Pulse Ox 02/05/20 15:18 98.2 F 77 18 160/80 H 99 02/05/20 14:20 80 02/05/20 11:29 98.4 F 96 H 18 184/103 H 98 02/05/20 09:11 74 02/05/20 07:29 98.2 F 86 18 146/81 H 98 PG Care Time/CCT Total # of Minutes Spent Total Time Spent with Patient: Total time spent is greater than 50% in coordination of care (as documented) at patient's floor/unit and/or counseling patient: Coding Level of Care Code 82585 Subseq Hosp Care Lvl 3 Diagnoses Cellulitis of left lower leg L03.116 Diabetes mellitus E11.628 Diabetes mellitus type: type 2 Diabetes mellitus continuous churn buttermaker insulin use: without continuous churn buttermaker use Diabetes mellitus complication status: with skin complications Diabetes mellitus complication detail: with other skin complication Alcohol abuse F10.10 CAD (coronary artery disease) I25.10 Coronary Disease-Associated Artery/Lesion type: [place] artery [place] vs. transplanted heart: [place] heart Associated angina: without angina (1) Diabetes mellitus Diabetes mellitus type: type 2 Diabetes mellitus snf insulin use: without continuous churn buttermaker use Diabetes mellitus complication status: with skin complications Diabetes mellitus complication detail: with other skin complication Qualified Code(s): E11.628 - Type 2 diabetes mellitus with other skin complications (2) CAD (coronary artery disease) Coronary Disease-Associated Artery/Lesion type: [place] artery [place] vs. transplanted heart: [place] heart Associated angina: without angina Qualified Code(s): I25.10 - Atherosclerotic heart disease of [place] coronary artery without angina pectoris
[2020-02-05] MEDS ORDERED: IMIPENEM/CILASTATIN SODIUM 500 MG in DEXTROSE 5% 100 ML IV SCH (18:30)
[2020-02-05] MEDS: IMIPENEM/CILASTATIN SODIUM 400 MG in DEXTROSE 5% 100 ML IV SCH (20:01)
[2020-02-05] MEDS: cloNIDine HCL 0.1 MG TAB PO PRN (22:56)
[2020-02-06] MEDS: IMIPENEM/CILASTATIN SODIUM 400 MG in DEXTROSE 5% 100 ML IV SCH ×4 (02:15→20:01)
--- NOTE | 2020-02-06 07:47 | Hospitalist Progress Note ---
Date of Service February 06, 2020 Assessment & Plan (1) Cellulitis of left lower leg: Foot infection in diabetic. Afebrile, hemodynamically stable, remains non-toxic in appearance. No osteomyelitis noted on imaging Wound Care Physician Did See Iker Munoz on both wounds -Continues with vancomycin and imipenem, blood cultures negative to date, negative MRI Foot X Ray 02/01/20 IMPRESSION: 1. No acute fracture, dislocation or osseous erosion to suggest osteomyelitis. 2. Diffuse subcutaneous edema of the lower leg, foot and ankle suggests cellulitis, venous stasis or lymphedema. No drainable fluid collection. 3. Osteoarthritis (2) Diabetes mellitus: Longstanding history of DM, not on any medication. Previously was on Actos and another oral medication elevated BS on arrival -HgbA1C is 10.7 on presentation -pt now on nph and ssi with glycemic pharmacy management -Diabetes education -ASA and Atorvastatin initiated as well (3) Alcohol abuse: Patient was counseled on alcohol cessation on presentation his alcohol level was elevated how alcohol will impede his ability to control his glucose well (4) CAD (coronary artery disease): Patient denies CP. EKG without ischemic changes. He is currently not on any cardiac medications -Surprisingly normalized lipid profile -ASA initiated -Atorvastatin initiated -Patient will be started on lisinopril, most likely need a beta alysia Admission and Anticipated Discharge Date Admission Date: February 01, 2020 Subjective This patient states he feels better his foot feels improved and it is less red after add broader gram negative and anaerobic coverage did have a MRI of his fo ot and there is no osteomyelitis he is willing to come to wound care clinic as an outpt after discharge he is comfortable with his glucose management and use home insulin treatment Review of Systems Review of Systems: Mild distress and fatigue no headache, blurry or double vision no speech or swallowing issues no chest pain, pressure or palpitations no shortness of breath, cough or wheezes no abdominal pain, nausea or vomiting, diarrhea or constipation no dysuria, hematuria or frequency Patient has trigger fingers in both hands involving the third fourth and fifth fingers with difficulty extending them no back pain, CVA tenderness or radicular pain the eschar on his left foot is being treated with santyl and gentle debridement, with smaller ulcerations in the first MTP area of the left foot no focal signs of weakness or numbness or altered sensation no complaints or anxiety or depression Physical Exam Physical Exam: The patient appeared well nourished and normally developed. Vital signs as documented. Head exam is normocephalic atraumatic no scleral icterus Neck is without JVD, thyromegaly, or carotid bruits. Lungs are clear to auscultation, no focal loss of breath sounds Cardiac exam, Rhythm is regular.. No murmurs, rubs or gallops. Abdominal exam reveals normal bowel sounds, soft non tender, no masses Extremities capillary refill is preserved bilaterally the left foot has had some debridement of eschar but surrounding erythema is worsened, pt agrees that he feels it looks more reddened, The patient also has small ulcerations least to the first MTP area of the left foot. There is significant surrounding erythema that was outline with a skin marker today, pending mri for osteo evaluation Neurologic exam is alert and oriented, no focal loss of strength or sensation with the exception of diabetic neuropathy Skin is with eschars and cellulitis to his left foot diabetic foot infection Psychologically is without concerns for anxiety or depression Results & Data Results & Data ([facility]) Vital Signs (Past 12 Hours) Vital Signs Temp Pulse Pulse Resp BP Pulse Ox 02/06/20 07:24 97.7 F 75 76 18 144/80 H 99 02/06/20 04:00 97.9 F 67 20 125/76 98 02/06/20 01:35 120/74 02/05/20 23:59 75 02/05/20 23:05 98.1 F 86 18 187/98 H 98 02/05/20 22:56 187/98 H PG Care Time/CCT Total # of Minutes Spent Total Time Spent with Patient: Total time spent is greater than 50% in coordination of care (as documented) at patient's floor/unit and/or counseling patient: Coding Level of Care Code 97391 Subseq Hosp Care Lvl 2 Diagnoses Cellulitis of left lower leg L03.116 Diabetes mellitus E11.628 Diabetes mellitus complication detail: with other skin complication Diabetes mellitus complication status: with skin complications Diabetes mellitus parts counterman insulin use: without parts counterman use Diabetes mellitus type: type 2 Alcohol abuse F10.10 CAD (coronary artery disease) I25.10 Associated angina: without angina Coronary Disease-Associated Artery/Lesion type: [place] artery [place] vs. transplanted heart: [place] heart (1) Diabetes mellitus Diabetes mellitus complication detail: with other skin complication Diabetes mellitus complication status: with skin complications Diabetes mellitus detention insulin use: without parts counterman use Diabetes mellitus type: type 2 Qualified Code(s): E11.628 - Type 2 diabetes mellitus with other skin complications (2) CAD (coronary artery disease) Associated angina: without angina Coronary Disease-Associated Artery/Lesion type: [place] artery [place] vs. transplanted heart: [place] heart Qualified Code(s): I25.10 - Atherosclerotic heart disease of [place] coronary artery without angina pectoris
[2020-02-06] MEDS: THIAMINE HCL 100 MG TAB PO SCH (08:53)
[2020-02-06] MEDS: ASPIRIN 81 MG ECTAB PO SCH (08:53)
[2020-02-06] MEDS: COLLAGENASE OINT 30 GM TUBE EXT SCH (08:53)
[2020-02-06] MEDS: ATORVASTATIN 40 MG TAB PO SCH (08:53)
[2020-02-06] MEDS: lisinopriL 5 MG TAB PO SCH (08:53)
[2020-02-06] MEDS: FOLIC ACID 1 MG TAB PO SCH (08:53)
[2020-02-06] MEDS: INSULIN HUMAN REGULAR SC SCH ×4 (08:54→21:13)
[2020-02-06 08:55] LABS: BUN Creatinine Ratio 19.5 (10-20); Calcium 9.7 mg/dl (8.5-10.1); Creatinine Clr Calc Pharmacy 103.7 ml/min; Est GFR (African American) 110.2; Est GFR (Non-African American) 95.1
[2020-02-06] MEDS: INSULIN HUMAN NPH SC SCH ×2 (08:56→17:58)
[2020-02-06] MEDS: VANCOMYCIN HCL 1,500 MG in SODIUM CHLORIDE 0.9% 500 ML IV SCH ×2 (09:07→21:11)
--- NOTE | 2020-02-06 11:00 | Magnetic Resonance Report ---
MR ankle LT wo con CLINICAL HISTORY: Diabetic foot infection. Possible osteomyelitis. COMPARISON STUDY: CT scan of the foot dated 01/24/2020 FINDINGS: Images were acquired in the axial, sagittal, and coronal planes. There are no areas of marrow edema to indicate osteomyelitis. There is diffuse soft tissue edema possibly secondary to a cellulitis. There are no fluid collections to indicate an abscess. There is no evidence for major ligamentous disruption. There is no evidence for a pathologic joint effusion. IMPRESSION: 1. No evidence of acute osteomyelitis 2. No evidence of focal abscess 3. Cutaneous and subcutaneous edema, possibly secondary to a cellulitis ACT 112: Negative or not required by law. Electronically signed by: Trevor Gray M.D. 02/06/2020 10:58 AM
--- NOTE | 2020-02-06 11:03 | Magnetic Resonance Report ---
MR forefoot LT w/o con CLINICAL HISTORY: Diabetic foot infection. Possible osteomyelitis. COMPARISON STUDY: CT scan dated 01/24/2020 FINDINGS: Images were acquired in the axial, sagittal, and coronal planes. There are no foci of T1 marrow edema to indicate osteomyelitis. There are no fluid collections to indicate an abscess. There is diffuse cutaneous and subcutaneous edema possibly secondary to a cellulitis. This is most pr onounced dorsally. IMPRESSION: 1. No evidence of acute osteomyelitis 2. No evidence of focal abscess 3. Dorsal soft tissue edema ACT 112: Negative or not required by law. Electronically signed by: Trevor Gray M.D. 02/06/2020 11:01 AM
--- NOTE | 2020-02-06 15:03 | Pharmacy Report ---
Pharmacy Glycemic Short Note 2 - Date of Service February 06, 2020 - Glycemic Short BSG Results (Last 24 hours): 02/05/20 02/05/20 02/06/20 16:31 19:53 07:37 Glucose POC Glucose 258 H 140 H 126 H 02/06/20 02/06/20 07:40 11:35 Glucose 117 H POC Glucose 204 H OUTPATIENT ANTIDIABETIC REGIMEN: * N/A * A1c 10.7% ASSESSMENT: 02/05: * Mr. Jean received 109 units of insulin yesterday with continued elevation of post prandial BSGs. * Fasting BSG this AM is at goal. This indicated evening dose of NPH is appropriate. * Improvement in lunch BSG noted today. Will continue with tighter carb coverage with breakfast to avoid BSG spike at lunchtime and slightly increase AM NPH dose. 02/04 * Patient received 101 units of insulin yesterday: * 45 units of basal and 56 units of bolus * This morning no changes were made to insulin regimen due to BSGs trending downward yesterday evening and fasting BSG this morning at goal (129 mg/dL). However, similar to yesterday, severe post prandial hyperglycemia noted with lunch. * I have ordered a one time 5 unit IV insulin bolus and will tighten carb coverage with breakfast to avoid BSG spike at lunch. 02/03: * Mr. Jean received 109 units of insulin yesterday, 39 of basal, 70 of correctional/prandial * BSGs ranged from 98-284 mg/dL, Fasting 152 acceptable, prandial BSGs continue to be high * Titrating regular parameters, cautious as do not want the insulin to stack and cause hypoglycemia * NPH titrating up as well, patient received 25 units this AM, scale for PM 02/02 * Transitioned patient from novolog + lantus to NPH + regular as patient will be on [employer] products outpatient * BSGs improving from yesterday, Fasting this morning 152, patient received an 8 unit IV dose with dinner for hyperglycemia * Will continue NPH scale for now until insulin needs more clear * Lunch BSG again elevated, breakfast insulin administered @0842, regular insulin from AM likely still active so hesitate to make further adjustments, however, do think patient could tolerate slight tightening of carb ratio to 5. 7/29 * Mr. Jean is admitted for left lower leg cellulitis, currently being treated with vancomycin and cefepime * BSGs elevated overnight into the 300s, patient is currently not on diabetes medications at home * Consulted this AM after patient received 8 units of lantus, will add an additional 12 units this morning with a scale for PM up to dosing between w eight based stress of 2 and 3 * Correction Factor and Carb ratio were tightened to CF 20 CR 10 this morning, will continue for now, may need to tighten CR PLAN FOR INPATIENT GLYCEMIC CONTROL: * Basal insulin * NPH 30 units with breakfast * NPH 20-25 units with dinner * Bolus insulin * NovoLog per scale ACHS or Q6hrs while NPO * Goal Range: Low 110 mg/dL - High 140 mg/dL Breakfast: * Correction Factor: 12 mg/dL/unit * Nutritional / Prandial insulin per carb ratio of 1 unit per 2.5 grams CHO consumed Lunch/dinner/HS: * Correction Factor: 12 mg/dL/unit * Nutritional / Prandial insulin per carb ratio of 1 unit per 4 grams CHO consumed PLAN FOR DISCHARGE: * A1c 10.7%, goal <8% to start * Man consider triple therapy regimen. If alcohol intake decreases, can consider starting metformin XR 500 mg daily with evening meal. * Recommend the following regimen to start: * NPH: 30 units with breakfast, 25 units with dinner * Regular insulin: 15 units with breakfast and lunch, 10 units with dinner (give half dose is low carb meal, hold if not eating) PLUS correctional insulin per scale below: Correctional SSI Blood Sugar 70-150 administer 0 units Blood Sugar 151-200 administer 2 units Blood Sugar 201-250 administer 4 units Blood Sugar 251-300 administer 6 units Blood Sugar 301-350 administer 8 units Blood Sugar 351-400 administer 10 units Blood Sugar >400 administer 12 units and call
[2020-02-06] MEDS: ENOXAPARIN INJ 40 MG/0.4 ML SYR SQ SCH (18:06)
[2020-02-07] MEDS: IMIPENEM/CILASTATIN SODIUM 400 MG in DEXTROSE 5% 100 ML IV SCH ×2 (02:23→08:16)
[2020-02-07 07:11] VITALS: TEMP 97.9
--- NOTE | 2020-02-07 07:17 | Hospitalist Progress Note ---
Date of Service February 07, 2020 Assessment & Plan (1) Cellulitis of left lower leg: Foot infection in diabetic. Afebrile, hemodynamically stable, remains non-toxic in appearance. No osteomyelitis noted on imaging Wound Care Physician Did See Iker Munoz on both wounds -Continues with vancomycin and imipenem, blood cultures negative to date, negative MRI Foot X Ray 02/01/20 IMPRESSION: 1. No acute fracture, dislocation or osseous erosion to suggest osteomyelitis. 2. Diffuse subcutaneous edema of the lower leg, foot and ankle suggests cellulitis, venous stasis or lymphedema. No drainable fluid collection. 3. Osteoarthritis (2) Diabetes mellitus: Longstanding history of DM, not on any medication. Previously was on Actos and another oral medication elevated BS on arrival -HgbA1C is 10.7 on presentation -pt now on nph and ssi with glycemic pharmacy management -Diabetes education -ASA and Atorvastatin initiated as well (3) Alcohol abuse: Patient was counseled on alcohol cessation on presentation his alcohol level was elevated how alcohol will impede his ability to control his glucose well (4) CAD (coronary artery disease): Patient denies CP. EKG without ischemic changes. He is currently not on any cardiac medications -Surprisingly normalized lipid profile -ASA initiated -Atorvastatin initiated -Patient will be started on lisinopril, most likely need a beta alysia Admission and Anticipated Discharge Date Admission Date: February 01, 2020 Subjective This patient states he feels better his foot feels improved and it is less red after add broader gram negative and anaerobic coverage did have a MRI of his fo ot and there is no osteomyelitis he is willing to come to wound care clinic as an outpt after discharge he is comfortable with his glucose management and use home insulin treatment Review of Systems Review of Systems: Mild distress and fatigue no headache, blurry or double vision no speech or swallowing issues no chest pain, pressure or palpitations no shortness of breath, cough or wheezes no abdominal pain, nausea or vomiting, diarrhea or constipation no dysuria, hematuria or frequency Patient has trigger fingers in both hands involving the third fourth and fifth fingers with difficulty extending them no back pain, CVA tenderness or radicular pain the eschar on his left foot is being treated with santyl and gentle debridement, with smaller ulcerations in the first MTP area of the left foot no focal signs of weakness or numbness or altered sensation no complaints or anxiety or depression Physical Exam Physical Exam: The patient appeared well nourished and normally developed. Vital signs as documented. Head exam is normocephalic atraumatic no scleral icterus Neck is without JVD, thyromegaly, or carotid bruits. Lungs are clear to auscultation, no focal loss of breath sounds Cardiac exam, Rhythm is regular.. No murmurs, rubs or gallops. Abdominal exam reveals normal bowel sounds, soft non tender, no masses Extremities capillary refill is preserved bilaterally the left foot has had some debridement of eschar but surrounding erythema is worsened, pt agrees that he feels it looks more reddened, The patient also has small ulcerations least to the first MTP area of the left foot. There is significant surrounding erythema that was outline with a skin marker today, pending mri for osteo evaluation Neurologic exam is alert and oriented, no focal loss of strength or sensation with the exception of diabetic neuropathy Skin is with eschars and cellulitis to his left foot diabetic foot infection Psychologically is without concerns for anxiety or depression Results & Data Results & Data ([facility]) Vital Signs (Past 12 Hours) Vital Signs Temp Pulse Pulse Resp BP Pulse Ox 02/07/20 07:14 75 02/07/20 07:10 97.9 F 67 18 169/92 H 99 02/07/20 05:03 97.7 F 73 20 173/87 H 99 02/07/20 05:00 152/81 H 02/06/20 23:09 98.2 F 74 20 137/78 99 02/06/20 19:28 97.9 F 72 20 153/88 H 100 PG Care Time/CCT Total # of Minutes Spent Total Time Spent with Patient: Total time spent is greater than 50% in coordination of care (as documented) at patient's floor/unit and/or counseling patient: Coding Diagnoses Cellulitis of left lower leg L03.116 Diabetes mellitus E11.628 Diabetes mellitus complication detail: with other skin complication Diabetes mellitus complication status: with skin complications Diabetes mellitus terminal supervisor insulin use: without terminal supervisor use Diabetes mellitus type: type 2 Alcohol abuse F10.10 CAD (coronary artery disease) I25.10 Associated angina: without angina Coronary Disease-Associated Artery/Lesion type: [place] artery [place] vs. transplanted heart: [place] heart (1) Diabetes mellitus Diabetes mellitus complication detail: with other skin complication Diabetes mellitus complication status: with skin complications Diabetes mellitus terminal supervisor insulin use: without terminal supervisor use Diabetes mellitus type: type 2 Qualified Code(s): E11.628 - Type 2 diabetes mellitus with other skin complications (2) CAD (coronary artery disease) Associated angina: without angina Coronary Disease-Associated Artery/Lesion type: [place] artery [place] vs. transplanted heart: [place] heart Qualified Code(s): I25.10 - Atherosclerotic heart disease of [place] coronary artery without angina pectoris
[2020-02-07] MEDS: THIAMINE HCL 100 MG TAB PO SCH (08:06)
[2020-02-07] MEDS: FOLIC ACID 1 MG TAB PO SCH (08:06)
[2020-02-07] MEDS: ASPIRIN 81 MG ECTAB PO SCH (08:06)
[2020-02-07] MEDS: lisinopriL 5 MG TAB PO SCH (08:06)
[2020-02-07] MEDS: COLLAGENASE OINT 30 GM TUBE EXT SCH (08:06)
[2020-02-07] MEDS: ATORVASTATIN 40 MG TAB PO SCH (08:06)
[2020-02-07] MEDS: INSULIN HUMAN REGULAR SC SCH ×2 (08:08→13:13)
[2020-02-07] MEDS: INSULIN HUMAN NPH SC SCH (08:09)
[2020-02-07 09:09] LABS: BUN Creatinine Ratio 14.7 (10-20); Calcium 9.2 mg/dl (8.5-10.1); Creatinine Clr Calc Pharmacy 97.6 ml/min; Est GFR (African American) 107.5; Est GFR (Non-African American) 92.7; Potassium 4.1 mmol/L (3.5-5.1)
[2020-02-07] MEDS ORDERED: VANCOMYCIN TROUGH ONE (09:30)
[2020-02-07] MEDS: VANCOMYCIN HCL 1,500 MG in SODIUM CHLORIDE 0.9% 500 ML IV SCH (10:29)
--- NOTE | 2020-02-07 11:12 | Pharmacy Report ---
Pharmacy Abx Dose Short Note - Date of Service February 07, 2020 - Assessment & Plan Assessment 64 year old M receiving IV Vancomycin + Primaxin for treatment of cellulitis of LLE Day #6 of antimicrobial therapy BC negative. Wound culture grew MSSA. Patient was escalated to Vancomycin + Primaxin on 02/04 secondary to worsening redness. Primaxin dose increased today secondary to improvement in renal fxn. Per hospitalist, continue broad spectrum abx for now. Plan Vancomycin * Trough level of 16.8 mcg/mL is therapeutic * Continue dose of 1500 mg IV every 12 hours * Goal trough level: ~15 mcg/mL * No further trough level has been ordered at this time. If patient has extended duration of stay, may need to order another trough to ensure he is not accumulating. Primaxin * Dose increased to 500 mg IV every 6 hours secondary to eCrCl > 90 mL/min Pharmacy will continue to follow and will adjust dose/frequency as necessary. Thank you.
[2020-02-07 11:47] VITALS: BP 151/84; O2SAT 100
[2020-02-07 13:49] VITALS: PULSE 108
[2020-02-07] MEDS ORDERED: IMIPENEM/CILASTATIN SODIUM 500 MG in DEXTROSE 5% 100 ML IV SCH (14:00)
--- NOTE | 2020-02-07 14:25 | Wound Progress Note ---
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 No debridement was required. Continue to dress wounds with Santyl. Wound culture was positive for staph aureus however patient did improve with the addition of imipenem. I agree with discharge with Keflex and Cipro. Patient is stable for discharge from a wound standpoint. We will see patient in the office upon discharge. Thank you for limited participate in the care of this patient. Please call with any questions. (2) Cellulitis of left lower leg: Subjective Patient seen at bedside with WONEHA and Dr. Peter. Patient was kept over the weekend due to wound appearing worse. MRIs were negative for osteomyelitis or abscess. Imipenem was added to the Vanco and resulting in significant improvement of erythema. Review of Systems Review of Systems: All systems reviewed & are unremarkable except as noted in HPI & below Physical Exam Skin: Wounds measuring as recorded by nursing documentation. Wounds are covered with thick yellow slough. Periwound is intact with erythema which is improving. There is moderate drainage and no foul odor. Neurologic: awake; not confused Psychiatric: A+Ox3, euthymic affect Results & Data Vital Signs (Past 12 Hours) Vital Signs Temp Pulse Pulse Pulse Resp BP Pulse Ox 02/07/20 13:47 36.6 C 108 H 72 18 151/84 H 100 02/07/20 11:46 36.6 C 72 18 151/84 H 100 02/07/20 07:14 75 02/07/20 07:10 36.6 C 67 18 169/92 H 99 02/07/20 05:03 36.5 C 73 20 173/87 H 99 02/07/20 05:00 152/81 H Diagnostic Findings MRI of the foot and ankle negative for osteomyelitis, abscess or tense uvulitis. PG Care Time/CCT Total # of Minutes Spent Total Time Spent with Patient: Total time spent is greater than 50% in coordination of care (as documented) at patient's floor/unit and/or counseling patient: Coding Level of Care Code 73206 Subseq Hosp Care Lvl 2 Diagnoses Diabetic ulcer of left foot due to type 2 diabetes mellitus E11.621; L97.529 Cellulitis of left lower leg L03.116
--- NOTE | 2020-02-07 14:27 | Pharmacy Report ---
Pharmacy Glycemic Short Note 2 - Date of Service February 07, 2020 - Glycemic Short BSG Results (Last 24 hours): 02/06/20 02/06/20 02/07/20 16:37 20:18 07:20 Glucose POC Glucose 193 H 150 H 135 H 02/07/20 02/07/20 07:54 11:42 Glucose 138 H POC Glucose 270 H OUTPATIENT ANTIDIABETIC REGIMEN: * N/A * A1c 10.7% ASSESSMENT: 02/06: * Patient received a total of 101 units of insulin yesterday. * 55 units basal + 46 units bolus * BSGs yesterday ranging from 126 - 204 mg/dL * Fasting BSG well controlled at 135 mg/dL today. Post-prandial hyperglycemia still demonstrated at lunchtime with BSG of 270 mg/dL. * Plan to increase PM NPH dose to 25 units today. Will likely need to increase AM NPH dose. * Tightened carb ratio with lunch meal as well. 02/05: * Mr. Jean received 109 units of insulin yesterday with continued elevation of post prandial BSGs. * Fasting BSG this AM is at goal. This indicated evening dose of NPH is appropriate. * Improvement in lunch BSG noted today. Will continue with tighter carb coverage with breakfast to avoid BSG spike at lunchtime and slightly increase AM NPH dose. 02/04 * Mr. Jean is admitted for left lower leg cellulitis, currently being treated with vancomycin and cefepime * Patient received 101 units of insulin yesterday: * 45 units of basal and 56 units of bolus * This morning no changes were made to insulin regimen due to BSGs trending downward yesterday evening and fasting BSG this morning at goal (129 mg/dL). However, similar to yesterday, severe post prandial hyperglycemia noted with lunch. * I have ordered a one time 5 unit IV insulin bolus and will tighten carb coverage with breakfast to avoid BSG spike at lunch. PLAN FOR INPATIENT GLYCEMIC CONTROL: * Basal insulin - increased * NPH 35 units with breakfast * NPH 25 units with dinner * Bolus insulin * NovoLog per scale ACHS or Q6hrs while NPO * Goal Range: Low 110 mg/dL - High 140 mg/dL Breakfast/Lunch: * Correction Factor: 12 mg/dL/unit * Nutritional / Prandial insulin per carb ratio of 1 unit per 2.5 grams CHO consumed Dinner/HS: * Correction Factor: 12 mg/dL/unit * Nutritional / Prandial insulin per carb ratio of 1 unit per 4 grams CHO consumed PLAN FOR DISCHARGE: * A1c 10.7%, goal <8% to start * Man consider triple therapy regimen. If alcohol intake decreases, can consider starting metformin XR 500 mg daily with evening meal. * Recommend the following regimen to start: * NPH: 30 units with breakfast, 25 units with dinner * Regular insulin: 15 units with breakfast and lunch, 10 units with dinner (give half dose is low carb meal, hold if not eating) PLUS correctional insulin per scale below: Correctional SSI Blood Sugar 70-150 administer 0 units Blood Sugar 151-200 administer 2 units Blood Sugar 201-250 administer 4 units Blood Sugar 251-300 administer 6 units Blood Sugar 301-350 administer 8 units Blood Sugar 351-400 administer 10 units Blood Sugar >400 administer 12 units and call
--- NOTE | 2020-02-07 14:59 | Discharge Summary ---
Date of Service February 07, 2020 Admission HPI Per Admitting Provider Sumeet Jean is a 64yo C male with history of DM and CAD s/p CABG x 3V performed in 2003 at [facility]. Patient does not follow with a PCP or take any medications. He does not check his blood sugars or follow a diabetic diet either. He presents today with infection and ulcers of LLE. He reports developing blisters on the LLE approximately 1 week ago. The blisters ruptured and then his foot became red and swollen. He denies fevers/chills/body aches/nausea/vomiting/diarrhea/constipation. He denies CP/palpitations/SOB/cough. No concerns for exposure to Covid-19. Patient is a heavy drinker, approximately 15 beers per day. He denies history of EtOH withdrawal symptoms but states that he cannot remember the last time he quit drinking. ER Course: Cefepime, Insulin 8u IV, Banana bag, NSS Principal Diagnosis diabetic foot infection poorly controlled diabetes hypertension Discharge Exam The patient appeared well Vital signs as documented. Lungs are clear to auscultation and appear unlabored Cardiac exam, Rhythm is regular.. No murmurs, rubs or gallops. Abdominal exam reveals normal bowel sounds, soft non tender, no masses Extremities are nonedematous and both pedal pulses are normal. Neurologic exam is alert and oriented, no focal loss of strength without peripheral neuropathy Skin is with large eschar on the dorsum of the left foot which is comprised of soft which is yellow. It is firm surrounding erythema has receded from the skin marker line drawn 2 days prior multiple other small areas of openings on his skin Psychologically is without concerns for anxiety or depression Discharge Data Allergies Allergy/AdvReac Type Severity Reaction Status Date / Time No Known Allergies Allergy Unverified 02/01/20 19:05 Consultations 02/01/20 21:02 ED Decision to Admit Stat 02/02/20 18:17 Consult Wound Care Provider Routine Ordered Studies 02/01/20 18:27 CT foot LT wo con Stat 02/03/20 10:00 US arterial duplex LE LT Routine 02/05/20 18:24 MR foot LT w/o con Routine 02/06/20 10:14 MR ankle LT wo con Routine Hospital Course (1) Cellulitis of left lower leg: Foot infection in diabetic. . No osteomyelitis noted on imaging including MRI scan on 02/06/2020 Wound Care Physician Did See Iker Munoz on both wounds -Improvement with vancomycin and imipenem, blood cultures negative to date, negative MRI Discharged on Keflex and Levaquin Foot X Ray 02/01/20 IMPRESSION: 1. No acute fracture, dislocation or osseous erosion to suggest osteomyelitis. 2. Diffuse subcutaneous edema of the lower leg, foot and ankle suggests cellulitis, venous stasis or lymphedema. No drainable fluid collection. 3. Osteoarthritis (2) Diabetes mellitus: Longstanding history of DM, not on any medication. Previously was on Actos and another oral medication elevated BS on arrival -HgbA1C is 10.7 on presentation -Patient was discharged on NPH 35 units in the morning 25 units at night, and regular insulin 12 units with each meal and bedtime he is given needles he has test strips given by a sheet metal journeyman and a glucometer -Diabetes education -ASA and Atorvastatin initiated as well, lisinopril started for hypertension and also renal protective effects Patient was encouraged to get a primary care provider and follow-up with endocrinology he will be following up with wound care center (3) Alcohol abuse: Patient was counseled on alcohol cessation on presentation his alcohol level was elevated how alcohol will impede his ability to control his glucose well His is in agreement that they will reduce her alcohol intake significantly (4) CAD (coronary artery disease): Patient denies CP. EKG without ischemic changes. He is currently not on any cardiac medications -Surprisingly normalized lipid profile -ASA initiated -Atorvastatin initiated -Patient will be started on lisinopril Total Time Total Time Spent Total Time Spent (In Minutes): It required greater than 30 minutes to prepare this patient for discharge Discharge Plan Discharge Items Patient Disposition: Home - Self-Care Reason For Visit: DIABETIC FOOT ULCERS Discharge Diagnosis: diabetic foot infection with ulceration Condition on Discharge: Fair Activity: Per Instructions section Activity Comment: please limit activity and elevlate leg as much as able Non-emergency contact: Primary Care Provider and Specialist Call non-emergency contact if: you have any medication questions and your symptoms worsen Follow-up/Referrals: Donnie Coe DO [Physician] - (PLEASE CONTACT OFFICE TO SCHEDULE A POST HOSPITAL DISCHARGE FOLLOW-UP APPOINTMENT) PCP,NO [Primary Care Provider] - Diet: Carb Consistent or DM2 Addtl Attending Provider Instructions: please elevate your foot as much as possible if any questions please contact wound care please follow up with a family doctor in one week, if you do not have a family doctor call the hospital and ask for case management and they can help coordinate an new patient appointment with a family doctor for you Pending Studies at Discharge: No Stand-Alone Forms: [facility], Smoking Cessation Medications and DC Order Prescriptions: New atorvastatin 40 mg Tablet 40 mg PO QAM Qty: 30 RF: 5 aspirin 81 mg Tablet,Delayed Release (Dr/Ec) 81 mg PO DAILY Qty: 30 RF: 5 Novolin N NPH U-100 Insulin 100 unit/mL Suspension 30 unit SC BID Qty: 40 RF: 3 lisinopril [Zestril] 5 mg Tablet 5 mg PO QAM Qty: 30 RF: 5 levofloxacin [Levaquin] 500 mg tablet 500 mg PO DAILY 5 Days Qty: 5 RF: 0 cephalexin [Keflex] 500 mg capsule 500 mg PO BID 5 Days Qty: 10 RF: 0 Novolin N NPH U-100 Insulin 100 unit/mL Suspension 1 units SC QDD Qty: 40 RF: 0 Novolin R Regular U-100 Insuln 100 unit/mL Solution 12 units SC DAILY@0730 Qty: 40 RF: 0 (DME) needle (disp) 25 gauge 25 gauge x 1 1/4" needle See Rx Instructions .ROUTE .MEDSUPPLY Qty: 100 RF: 5 Discharge Orders: Discharge Order (Routine); Ordered 02/07/20 Ordered By: Arnaldo Gabriel/Other Patient Handouts: Diabetes and Heart Disease, Long-Term Complications of Diabetes, How to Check Your Blood Sugar, Healthy Meals for Diabetes, Diabetes: The Benefits of Exercise, Managing Diabetes: The A1C Test Admission Data Admit Date/Time: 02/01/20 21:38 Attending Provider: Arnaldo Jung Admit Provider: Roxie Connelly Primary Care Provider: PCP,NO Other Providers: Roxie Connelly ; Donnie Coe Other Interventions: Discharge Summary Assessment (RN) Last Done: 02/07/20 13:47 DC Date/Time DO NOT enter until pt leaves facility: 02/07/20 14:49 Coding Level of Care Code D/C Day Management >30 mins Diagnoses Cellulitis of left lower leg L03.116 Diabetes mellitus E11.628 Diabetes mellitus type: type 2 Diabetes mellitus penitentiary insulin use: without terminal operations supervisor use Diabetes mellitus complication status: with skin complications Diabetes mellitus complication detail: with other skin complication Alcohol abuse F10.10 CAD (coronary artery disease) I25.10 Coronary Disease-Associated Artery/Lesion type: [place] artery [place] vs. transplanted heart: [place] heart Associated angina: without angina
[2020-02-07] MEDS ORDERED: INSULIN HUMAN REGULAR SC SCH (16:30)
[2020-02-07] MEDS ORDERED: INSULIN HUMAN NPH SC SCH ×2 (16:30)
[2020-02-08] MEDS ORDERED: INSULIN HUMAN REGULAR SC SCH (07:30)
[2020-02-08] MEDS ORDERED: INSULIN HUMAN NPH SC SCH (07:30)
== END 2020-02-07 14:49 | disposition home or self-care (01) | DRG 638 ==
LOC: ED 18:04 → SUATTDRO 21:38 → 2W 21:38 → 2N 02-06 18:41

== ENCOUNTER 2020-05-16 09:51 | Inpatient (IN) ==
--- NOTE | 2020-05-16 09:55 | Emergency Department Note ---
Impression & Plan Diabetic foot ulcer, Cellulitis of left lower leg, Acute hyperglycemia, Diabetes mellitus ED Provider Note NAME: SLADE MENDOZA AGE: 64 SEX: M : 1955 ARRIVES VIA: Ambulance INFORMANT: Patient, ED PROVIDER(S): Niraj Briscoe MD Chief Complaint: Weakness HPI: Patient has had ongoing weakness for approximate 7 days. This is gotten progressively worse over this time period. The patient has had decreased p.o. intake and has elevated blood sugar. The patient does not have insulin as the patient does not have insurance. The patient denies any alcohol or tobacco use. Patient does have a prior history of right lower extremity wound which he last changed on Friday. The patient denies any fevers chills, chest pains or shortness of breath. The patient denies nausea vomiting or abdominal pain. The patient is passing gas but is not had a bowel movement approximately 1 week. Patient's BSG prior to arrival was just under 600. The patient was given 700 cc of IV fluids. ROS: See HPI for pertinent positives and negatives. A total of 10 systems were reviewed and otherwise negative. Past medical history: See below Surgical history: See below Social history: See below Physical Exam: GENERAL: Wearing a mask. NAD, non-toxic. EYE EXAM: Normal conjunctiva. PERRL, no anisocoria and EOM's grossly intact w/o pain. NECK: Supple, no nuchal rigidity, no adenopathy, non-tender. No signs of meningismus. LUNGS: Clear to auscultation. Normal chest wall mechanics. HEART: NSR, no MRG. ABDOMEN: Abdomen soft, non-tender, normo-active bowel sounds, no masses, no rebound or guarding. BACK: No CVA TTP. SKIN: No rashes and no bruising. UPPER EXTREMITIES: Upper extremities are grossly normal. LOWER EXTREMITIES: Malodorous stage III ulceration to the plantar aspect of the R heel and foot. NEURO EXAM: A&O x3, cranial nerves II-XII grossly intact, normal speech, moves all 4 extremities on command w/o issue. Differential diagnoses: Sepsis, UTI, pneumonia, metabolic, electrolyte abnormalities, cardiac sources, intracerebral event, toxicologic, neurologic, as well as other pathologies. Course: Patient was seen and evaluated the bedside. Full history physical exam was performed. EKG: Indication: Heel wound Sinus with PACs. Rate of 99. Normal intervals and axis. Patient has T wave inversion in lead III and T wave flattening in aVF. Imaging Studies: Radiology results as stated below per my review in the radiologist's interpretation: RIGHT FOOT 3 VIEWS CLINICAL HISTORY: Heel ulceration. FINDINGS: 3 views of the right foot are obtained. No prior studies are available for comparison at the time of dictation. The skeletal structures are osteopenic. No fracture is seen. Mild to moderate osteoarthritic change is noted at the first metatarsophalangeal joint. An os navicularis is incidentally noted. There are dorsal and plantar calcaneal enthesophytes. No bony erosion or periostitis is identified. There is a large soft tissue ulceration along the posterior aspect of the heel with significant subcutaneous gas in the posterior ankle and hindfoot. Atherosclerotic calcification is noted in the regional arteries. IMPRESSION: 1. No acute bony abnormality is identified. 2. A large soft tissue ulceration is identified on the posterior aspect of the heel with superficial and deep soft tissue gas and edema. Correlate clinically for evidence of cellulitis and necrotizing infection. 3. Osteopenia, degenerative change, and heel spurs as above. Electronically signed by: Ochoa Ramey M.D. 05/16/2020 11:09 AM Dictated: 05/16/20 1106 Transcribed: 05/16/20 110 XR ankle RT min 3V routine CLINICAL HISTORY: ulceration heel COMPARISON: None FINDINGS: Note is made of extensive posterior calcaneal spurring. There is no acute fracture of the right calcaneus. There is no evidence for osteomyelitis by radiography. There is a large ulcer of the posterior right heel. Extensive soft tissue gas overlying the calcaneus is noted. In addition, the gas extends superiorly within the posterior soft tissues to at least the distal calf. There is moderate vascular calcification. IMPRESSION: 1. Large ulcer of the posterior right heel with soft tissue gas that extends superiorly to at least the distal calf. The extent of soft tissue gas is suspicious for necrotizing fasciitis. Right tibia and fibula radiographs to evaluate extent of gas are recommended. 2. No evidence for osteomyelitis within the right calcaneus by radiography. ACT 112: Negative or not required by law. Electronically signed by: Everardo Bliss M.D. 05/16/2020 11:20 AM Dictated: 05/16/20 1117 Transcribed: 05/16/20 1117 XR chest 1V portable CLINICAL HISTORY: SEPSIS COMPARISON STUDY: Chest radiograph February 01, 2020. FINDINGS: A small right pleural effusion is noted. There is no consolidation or evidence for pulmonary edema. There are median sternotomy wires. Mediastinal surgical clips are noted. There is no pneumothorax. IMPRESSION: 1. Suspected small right pleural effusion. 2. Mild cardiomegaly without evidence for pulmonary edema. 3. No consolidation. ACT 112: Negative or not required by law. Electronically signed by: Everardo Bliss M.D. 05/16/2020 10:59 AM Dictated: 05/16/20 1059 Transcribed: 05/16/20 105 Cardiac monitoring: An order was placed for continuous cardiac monitoring. The monitor shows a rate of 80 with sinus rhythm. MDM: Patient did present with weakness and increased blood sugar. On exam the patient does have a malodorous and diffuse ulceration to the right foot. Blood cultures and empiric antibiotics were ordered along with IV fluids. The patient did have concern for infection of the right foot. Blood work does show mild white count of 12 with hemoglobin virtually normal at 13.9. Patient did have elevated ESR and CRP. Pro-Jaxon is not elevated lactate at 2.1 with a glucose of 412. Not DKA. Hyponatremia is present likely concomitant pseudohyponatremia given the glucose. X-rays did show the concern for possible gas. On exam the patient does not have reproducible crepitus of the area but does have some surrounding erythema. I did speak with the on-call orthopedist Dr. Hasmukh MD to notify him about the concerns of the foot and the possibility for debridement versus more aggressive treatment if antibiotics alone do not improve his symptoms. I did speak with the on-call hospitalist Dr. June MD. The patient was admitted to the medicine service. Patient was seen at the bedside by Dr. Hasmukh MD. He recommended continued management and would reevaluate. Critical Care: I have personally spent 43 minutes of critical care time in direct management of this patient. This includes bedside care, interpretation of diagnostic studies, and testing, discussion with consultants, patient, and family members, and other require inpatient management activities. This 43 minutes is in excess of all separately billable procedures. Past Med/Surg History Medical History (Updated 05/16/20 @ 14:23 by Sandip Watkins MD) Alcohol abuse Diabetes mellitus Neuropathy Surgical History History of coronary artery bypass graft x 3 Family History Other No significant family history Social History Smoking Status: Never smoker Second Hand Exposure: No; Do You Dip or Chew Tobacco: No; Tobacco Cessation Education Requested by Patient: No Hx Alcohol Use: Yes Alcohol type: beer Hx Substance Use: No Preferred Language: German Communication Ability: Effective Guideman Required: No Beliefs That Will Affect Care: None marital status: Current Living Situation: Spouse Other Information That Helps Us Care for You: No Feels Safe at Home: Yes Safety Concerns: Feels Safe At This Time Assistive Devices: None Allergies Allergies Allergy/AdvReac Type Severity Reaction Status Date / Time No Known Allergies Allergy Unverified 05/16/20 10:40 Home Meds Previous Rx's Medication Instructions Recorded aspirin 81 mg PO DAILY #30 tab 02/07/20 atorvastatin 40 mg PO QAM #30 tab 02/07/20 insulin NPH isoph U-100 human 1 units SC QDD #40 ml 02/07/20 [Novolin N NPH U-100 Insulin] insulin NPH isoph U-100 human 30 unit SC BID #40 ml 02/07/20 [Novolin N NPH U-100 Insulin] insulin regular human [Novolin R 12 units SC DAILY@0730 #40 ml 02/07/20 Regular U-100 Insuln] lisinopril [Zestril] 5 mg PO QAM #30 tab 02/07/20 needle (disp) 25 gauge #100 ea 02/07/20 Results & Data (ED) Vital Signs Vital Signs - 24 hr 05/16/20 10:00 05/16/20 11:18 05/16/20 13:56 Temperature 36.9 C Temperature Source Oral Pulse Rate 102 H Pulse Rate [Right Finger] 96 H 86 Respiratory Rate 24 20 16 Respiratory Effort / Characteristics Non-Labored Non-Labored Non-Labored Respiratory Depth Normal Normal Normal Blood Pressure 157/94 H Blood Pressure [Right Arm] 152/70 H 167/91 H Blood Pressure Mean 115 Blood Pressure Mean [Right Arm] 97 116 Pulse Oximetry 98 99 100 Oxygen Delivery Method Room Air Room Air Room Air Sepsis Recent Fever Within 48 Hours No Sepsis New/Unexplained Change in Mental Status N/A Sepsis Action Taken by Nursing Physician Notified Home Medications Current Medication List: was personally reviewed by me Laboratory Data Attestation: I reviewed the patient's lab results. Result diagrams: 05/16/20 09:25 05/16/20 09:25 Lab Results 05/16/20 05/16/20 05/16/20 Range/Units 09:25 09:25 09:25 WBC 12.58 H (4.8-10.8) K/uL RBC 4.78 (4.7-6.1) M/uL Hgb 13.9 L (14.0-18.0) g/dL Hct 39.7 L (42-52) % MCV 83.1 (80-100) fL MCH 29.1 (25-34) pg MCHC 35.0 (32-36) g/dL RDW Std Deviation 36.2 L (36.4-46.3) fL RDW Coeff of Mau 11.9 (11.5-14.5) % Plt Count 247 (130-400) K/uL MPV 10.1 (7.4-10.4) fL Immature Gran % (Auto) 0.2 % Neut % (Auto) 81.5 % Lymph % (Auto) 9.4 % Todd % (Auto) 8.6 % Eos % (Auto) 0.2 % Baso % (Auto) 0.1 % Neut # (Auto) 10.26 H (1.4-6.5) K/uL Lymph # (Auto) 1.18 L (1.2-3.4) K/uL Todd # (Auto) 1.08 H (0.11-0.59) K/uL Eos # (Auto) 0.03 (0-0.5) K/uL Baso # (Auto) 0.01 (0-0.2) K/uL Immature Gran # (Auto) 0.02 (0.00-0.02) K/uL ESR (0-14) mm/hr PT 12.0 (9.0-12.0) Seconds INR 1.1 (0.9-1.1) APTT 28.9 (21.0-31.0) Seconds PTT Ratio 1.0 Sodium 126 L (136-145) mmol/L Potassium 4.2 (3.5-5.1) mmol/L Chloride 91 L (98-107) mmol/L Carbon Dioxide 26 (21-32) mmol/L Anion Gap 10.0 (3-11) BUN 11 (7-18) mg/dl Creatinine 1.04 (0.6-1.4) mg/dl Est Cr Clr Drug Dosing 78.4 ml/min Est GFR ( Amer) 88.1 Est GFR (Non-Af Amer) 76.1 BUN/Creatinine Ratio 10.6 (10-20) Glucose 412 H* (70-99) mg/dl Lactate (0.4-2.0) mmol/L Calcium 9.5 (8.5-10.1) mg/dl Magnesium 2.0 (1.8-2.4) mg/dl Total Bilirubin 0.8 (0.2-1) mg/dl AST 13 L (15-37) U/L ALT 20 (12-78) U/L Alkaline Phosphatase 129 H (45-117) U/L Troponin I < 0.015 (0-0.045) ng/ml C-Reactive Protein (0-0.29) mg/dl Total Protein 9.4 H (6.4-8.2) gm/dl Albumin 2.3 L (3.4-5.0) gm/dl Globulin 7.1 H (2.5-4.0) gm/dl Albumin/Globulin Ratio 0.3 L (0.9-2) Beta-Hydroxybutyric Acd 16.08 H (0.2-2.81) mg/dl Procalcitonin (0-0.5) ng/ml COVID-19 Eval Order Hepatitis C Ab Screen (Neg) SARS-CoV-2, RNA, NAAT (NEGATIVE) 05/16/20 05/16/20 05/16/20 Range/Units 09:25 09:25 09:25 WBC (4.8-10.8) K/uL RBC (4.7-6.1) M/uL Hgb (14.0-18.0) g/dL Hct (42-52) % MCV (80-100) fL MCH (25-34) pg MCHC (32-36) g/dL RDW Std Deviation (36.4-46.3) fL RDW Coeff of Mau (11.5-14.5) % Plt Count (130-400) K/uL MPV (7.4-10.4) fL Immature Gran % (Auto) % Neut % (Auto) % Lymph % (Auto) % Todd % (Auto) % Eos % (Auto) % Baso % (Auto) % Neut # (Auto) (1.4-6.5) K/uL Lymph # (Auto) (1.2-3.4) K/uL Todd # (Auto) (0.11-0.59) K/uL Eos # (Auto) (0-0.5) K/uL Baso # (Auto) (0-0.2) K/uL Immature Gran # (Auto) (0.00-0.02) K/uL ESR (0-14) mm/hr PT (9.0-12.0) Seconds INR (0.9-1.1) APTT (21.0-31.0) Seconds PTT Ratio Sodium (136-145) mmol/L Potassium (3.5-5.1) mmol/L Chloride (98-107) mmol/L Carbon Dioxide (21-32) mmol/L Anion Gap (3-11) BUN (7-18) mg/dl Creatinine (0.6-1.4) mg/dl Est Cr Clr Drug Dosing ml/min Est GFR ( Amer) Est GFR (Non-Af Amer) BUN/Creatinine Ratio (10-20) Glucose (70-99) mg/dl Lactate (0.4-2.0) mmol/L Calcium (8.5-10.1) mg/dl Magnesium (1.8-2.4) mg/dl Total Bilirubin (0.2-1) mg/dl AST (15-37) U/L ALT (12-78) U/L Alkaline Phosphatase (45-117) U/L Troponin I (0-0.045) ng/ml C-Reactive Protein 33.70 H (0-0.29) mg/dl Total Protein (6.4-8.2) gm/dl Albumin (3.4-5.0) gm/dl Globulin (2.5-4.0) gm/dl Albumin/Globulin Ratio (0.9-2) Beta-Hydroxybutyric Acd (0.2-2.81) mg/dl Procalcitonin 0.50 (0-0.5) ng/ml COVID-19 Eval Order Hepatitis C Ab Screen Neg (Neg) SARS-CoV-2, RNA, NAAT (NEGATIVE) 05/16/20 05/16/20 05/16/20 Range/Units 10:02 10:47 12:46 WBC (4.8-10.8) K/uL RBC (4.7-6.1) M/uL Hgb (14.0-18.0) g/dL Hct (42-52) % MCV (80-100) fL MCH (25-34) pg MCHC (32-36) g/dL RDW Std Deviation (36.4-46.3) fL RDW Coeff of Mau (11.5-14.5) % Plt Count (130-400) K/uL MPV (7.4-10.4) fL Immature Gran % (Auto) % Neut % (Auto) % Lymph % (Auto) % Todd % (Auto) % Eos % (Auto) % Baso % (Auto) % Neut # (Auto) (1.4-6.5) K/uL Lymph # (Auto) (1.2-3.4) K/uL Todd # (Auto) (0.11-0.59) K/uL Eos # (Auto) (0-0.5) K/uL Baso # (Auto) (0-0.2) K/uL Immature Gran # (Auto) (0.00-0.02) K/uL ESR > 90 H (0-14) mm/hr PT (9.0-12.0) Seconds INR (0.9-1.1) APTT (21.0-31.0) Seconds PTT Ratio Sodium (136-145) mmol/L Potassium (3.5-5.1) mmol/L Chloride (98-107) mmol/L Carbon Dioxide (21-32) mmol/L Anion Gap (3-11) BUN (7-18) mg/dl Creatinine (0.6-1.4) mg/dl Est Cr Clr Drug Dosing ml/min Est GFR ( Amer) Est GFR (Non-Af Amer) BUN/Creatinine Ratio (10-20) Glucose (70-99) mg/dl Lactate 2.1 H* 1.5 (0.4-2.0) mmol/L Calcium (8.5-10.1) mg/dl Magnesium (1.8-2.4) mg/dl Total Bilirubin (0.2-1) mg/dl AST (15-37) U/L ALT (12-78) U/L Alkaline Phosphatase (45-117) U/L Troponin I (0-0.045) ng/ml C-Reactive Protein (0-0.29) mg/dl Total Protein (6.4-8.2) gm/dl Albumin (3.4-5.0) gm/dl Globulin (2.5-4.0) gm/dl Albumin/Globulin Ratio (0.9-2) Beta-Hydroxybutyric Acd (0.2-2.81) mg/dl Procalcitonin (0-0.5) ng/ml COVID-19 Eval Order Hepatitis C Ab Screen (Neg) SARS-CoV-2, RNA, NAAT (NEGATIVE) 05/16/20 05/16/20 Range/Units 14:10 14:10 WBC (4.8-10.8) K/uL RBC (4.7-6.1) M/uL Hgb (14.0-18.0) g/dL Hct (42-52) % MCV (80-100) fL MCH (25-34) pg MCHC (32-36) g/dL RDW Std Deviation (36.4-46.3) fL RDW Coeff of Mau (11.5-14.5) % Plt Count (130-400) K/uL MPV (7.4-10.4) fL Immature Gran % (Auto) % Neut % (Auto) % Lymph % (Auto) % Todd % (Auto) % Eos % (Auto) % Baso % (Auto) % Neut # (Auto) (1.4-6.5) K/uL Lymph # (Auto) (1.2-3.4) K/uL Todd # (Auto) (0.11-0.59) K/uL Eos # (Auto) (0-0.5) K/uL Baso # (Auto) (0-0.2) K/uL Immature Gran # (Auto) (0.00-0.02) K/uL ESR (0-14) mm/hr PT (9.0-12.0) Seconds INR (0.9-1.1) APTT (21.0-31.0) Seconds PTT Ratio Sodium (136-145) mmol/L Potassium (3.5-5.1) mmol/L Chloride (98-107) mmol/L Carbon Dioxide (21-32) mmol/L Anion Gap (3-11) BUN (7-18) mg/dl Creatinine (0.6-1.4) mg/dl Est Cr Clr Drug Dosing ml/min Est GFR ( Amer) Est GFR (Non-Af Amer) BUN/Creatinine Ratio (10-20) Glucose (70-99) mg/dl Lactate (0.4-2.0) mmol/L Calcium (8.5-10.1) mg/dl Magnesium (1.8-2.4) mg/dl Total Bilirubin (0.2-1) mg/dl AST (15-37) U/L ALT (12-78) U/L Alkaline Phosphatase (45-117) U/L Troponin I (0-0.045) ng/ml C-Reactive Protein (0-0.29) mg/dl Total Protein (6.4-8.2) gm/dl Albumin (3.4-5.0) gm/dl Globulin (2.5-4.0) gm/dl Albumin/Globulin Ratio (0.9-2) Beta-Hydroxybutyric Acd (0.2-2.81) mg/dl Procalcitonin (0-0.5) ng/ml COVID-19 Eval Order Covid19 IDNow [facility] Hepatitis C Ab Screen (Neg) SARS-CoV-2, RNA, NAAT NEGATIVE (NEGATIVE) Administered Medications Discontinued Medications Sodium Chloride (Nss 1000ml) 1,000 mls @ 999 mls/hr IV .Q1H1M AKUA Stop: 05/16/20 11:03 Last Admin: 05/16/20 11:18 Dose: 999 mls/hr Documented by: [id number] Sodium Chloride (Nss 1000ml) 1,000 mls @ 999 mls/hr IV .Q1H1M AKUA Stop: 05/16/20 12:02 Last Infusion: 05/16/20 13:59 Dose: 0 mls/hr Documented by: [id number] Admin: 05/16/20 12:07 Dose: 999 mls/hr Documented by: [id number] Piperacillin Sod/Tazobactam Sod (Zosyn) 4.5 gm in 120 mls @ 240 mls/hr IV NOW ONE Stop: 05/16/20 10:33 Last Infusion: 05/16/20 12:05 Dose: 0 mls/hr Documented by: [id number] Admin: 05/16/20 11:15 Dose: 240 mls/hr Documented by: [id number] Vancomycin HCl 1,750 mg/ (Sodium Chloride) 535 mls @ 200 mls/hr IV NOW ONE Stop: 05/16/20 12:33 Last Admin: 05/16/20 12:06 Dose: 200 mls/hr Documented by: [id number] Insulin Human Regular 10 units (/ Syringe) 10 mls @ 30 mls/min IV NOW ONE Stop: 05/16/20 13:01 Last Admin: 05/16/20 13:58 Dose: 30 mls/min Documented by: [id number] Cosigned by: [id number] Discharge Plan Visit Data Chief Complaint: Infection, Wound ED Provider: Niraj Briscoe Discharge Problem: Diabetic foot ulcer, Cellulitis of left lower leg, Acute hyperglycemia, Diabetes mellitus Discharge Instructions Krames/Other Patient Handouts: High Blood Sugar (Hyperglycemia), Hypoglycemia (Low Blood Sugar), How to Check Your Blood Sugar, Can You Control Diabetes Without ... Forms Stand Alone Forms: My [facility] Prescriptions Prescriptions: No Action atorvastatin 40 mg Tablet 40 mg PO QAM Qty: 30 RF: 5 aspirin 81 mg Tablet,Delayed Release (Dr/Ec) 81 mg PO DAILY Qty: 30 RF: 5 Novolin N NPH U-100 Insulin 100 unit/mL Suspension 30 unit SC BID Qty: 40 RF: 3 lisinopril [Zestril] 5 mg Tablet 5 mg PO QAM Qty: 30 RF: 5 Novolin N NPH U-100 Insulin 100 unit/mL Suspension 1 units SC QDD Qty: 40 RF: 0 Novolin R Regular U-100 Insuln 100 unit/mL Solution 12 units SC DAILY@0730 Qty: 40 RF: 0 (DME) needle (disp) 25 gauge 25 gauge x 1 1/4" needle See Rx Instructions .ROUTE .MEDSUPPLY Qty: 100 RF: 5 Referrals Referrals: PCP,NO [Primary Care Provider] - Discharge Problem: Diabetic foot ulcer Qualifiers: Diabetic foot ulcer location: heel Diabetes mellitus type: type 1 Laterality: right Non-pressure ulcer stage: unspecified non-pressure ulcer stage Qualified Code(s): E10.621 - Type 1 diabetes mellitus with foot ulcer Diabetes mellitus Qualifiers: Diabetes mellitus type: other specified (including TEVIN)
[2020-05-16] MEDS ORDERED: PIPERACILLIN/TAZOBACTAM 4.5 GM/120 ML BAG IV ONE (10:04)
[2020-05-16] MEDS ORDERED: VANCOMYCIN CONSULT ACTIVE PRN (10:04)
[2020-05-16] MEDS ORDERED: VANCOMYCIN HCL 1,750 MG in SODIUM CHLORIDE 0.9% 500 ML IV ONE (10:04)
[2020-05-16] MEDS ORDERED: PIPERACILL/TAZOBAC CONSULT ACTIVE PRN (10:04)
[2020-05-16] MEDS ORDERED: SODIUM CHLORIDE 0.9% 1000ML 1,000 ML IV SCH ×2 (10:15→11:03)
[2020-05-16 10:28] LABS: Basophils # (auto) 0.01 K/uL (0-0.2); Basophils % (auto) 0.1 %; Eosinophils # (auto) 0.03 K/uL (0-0.5); Eosinophils % (auto) 0.2 %; Hematocrit (blood only) 39.7 % (42-52); Hemoglobin 13.9 g/dL (14.0-18.0); Immature Granulocytes # (auto) 0.02 K/uL (0.00-0.02); Immature Granulocytes % (auto) 0.2 %; Lymphocytes # (auto) 1.18 K/uL (1.2-3.4); Lymphocytes % (auto) 9.4 %; Mean Corpuscular Hemoglobin 29.1 pg (25-34); Mean Corpuscular Volume 83.1 fL (80-100); Mean Platelet Volume 10.1 fL (7.4-10.4); Monocytes # (auto) 1.08 K/uL (0.11-0.59); Monocytes % (auto) 8.6 %; Neutrophils # (auto) 10.26 K/uL (1.4-6.5); Neutrophils % (auto) 81.5 %; Platelet Count 247 K/uL (130-400); RDW Coefficient of Variation 11.9 % (11.5-14.5); RDW Standard Deviation 36.2 fL (36.4-46.3); Red Blood Count 4.78 M/uL (4.7-6.1); White Blood Count 12.58 K/uL (4.8-10.8)
[2020-05-16 10:35] LABS: INR 1.1 (0.9-1.1); Partial Thromboplastin Time 28.9 Seconds (21.0-31.0)
[2020-05-16 10:57] LABS: Alanine Aminotransferase 20 U/L (12-78); Albumin Globulin Ratio 0.3 (0.9-2); Albumin Level 2.3 gm/dl (3.4-5.0); Alkaline Phosphatase 129 U/L (45-117); Aspartate Aminotransferase 13 U/L (15-37); BUN Creatinine Ratio 10.6 (10-20); Bilirubin,Total 0.8 mg/dl (0.2-1); Blood Urea Nitrogen 11 mg/dl (7-18); Calcium 9.5 mg/dl (8.5-10.1); Carbon Dioxide 26 mmol/L (21-32); Chloride 91 mmol/L (98-107); Creatinine Clr Calc Pharmacy 78.4 ml/min; Est GFR (African American) 88.1; Est GFR (Non-African American) 76.1; Globulin 7.1 gm/dl (2.5-4.0); Glucose 412 mg/dl (70-99); Potassium 4.2 mmol/L (3.5-5.1); Sodium 126 mmol/L (136-145); Total Protein 9.4 gm/dl (6.4-8.2); Troponin I < 0.015 ng/ml (0-0.045)
--- NOTE | 2020-05-16 11:01 | XRay Report ---
XR chest 1V portable CLINICAL HISTORY: SEPSIS COMPARISON STUDY: Chest radiograph February 01, 2020. FINDINGS: A small right pleural effusion is noted. There is no consolidation or evidence for pulmonar y edema. There are median sternotomy wires. Mediastinal surgical clips are noted. There is no pneumot horax. IMPRESSION: 1. Suspected small right pleural effusion. 2. Mild cardiomegaly without evidence for pulmonary edema. 3. No consolidation. ACT 112: Negative or not required by law. Electronically signed by: Everardo Bliss M.D. 05/16/2020 10:59 AM
--- NOTE | 2020-05-16 11:10 | XRay Report ---
RIGHT FOOT 3 VIEWS CLINICAL HISTORY: Heel ulceration. FINDINGS: 3 views of the right foot are obtained. No prior studies are available for comparison at th e time of dictation. The skeletal structures are osteopenic. No fracture is seen. Mild to moderate os teoarthritic change is noted at the first metatarsophalangeal joint. An os navicularis is incidentall y noted. There are dorsal and plantar calcaneal enthesophytes. No bony erosion or periostitis is iden tified. There is a large soft tissue ulceration along the posterior aspect of the heel with significa nt subcutaneous gas in the posterior ankle and hindfoot. Atherosclerotic calcification is noted in th e regional arteries. IMPRESSION: 1. No acute bony abnormality is identified. 2. A large soft tissue ulceration is identified on the posterior aspect of the heel with superficial and deep soft tissue gas and edema. Correlate clinically for evidence of cellulitis and necrotizing i nfection. 3. Osteopenia, degenerative change, and heel spurs as above. Electronically signed by: Ochoa Ramey M.D. 05/16/2020 11:09 AM
[2020-05-16 11:16] LABS: Beta-Hydroxybutyrate 16.08 mg/dl (0.2-2.81)
--- NOTE | 2020-05-16 11:22 | XRay Report ---
XR ankle RT min 3V routine CLINICAL HISTORY: ulceration heel COMPARISON: None FINDINGS: Note is made of extensive posterior calcaneal spurring. There is no acute fracture of the right calcaneus. There is no evidence for osteomyelitis by radiography. There is a large ulcer of the posterior right heel. Extensive soft tissue gas overlying the calcaneus is noted. In addition, the g as extends superiorly within the posterior soft tissues to at least the distal calf. There is moderat e vascular calcification. IMPRESSION: 1. Large ulcer of the posterior right heel with soft tissue gas that extends superiorly to at least t he distal calf. The extent of soft tissue gas is suspicious for necrotizing fasciitis. Right tibia an d fibula radiographs to evaluate extent of gas are recommended. 2. No evidence for osteomyelitis within the right calcaneus by radiography. ACT 112: Negative or not required by law. Electronically signed by: Everardo Bliss M.D. 05/16/2020 11:20 AM
--- NOTE | 2020-05-16 11:58 | Electrocardiogram Report ---
Test Reason : Blood Pressure : / mmHG Vent. Rate : 099 BPM Atrial Rate : 099 BPM P-R Int : 142 ms QRS Dur : 088 ms QT Int : 388 ms P-R-T Axes : 025 000 007 degrees QTc Int : 497 ms Sinus rhythm with Premature atrial complexes with Aberrant conduction Inferior infarct (cited on or before 12-JAN-2012) Possible Anterior infarct (cited on or before 01-FEB-2020) Abnormal ECG When compared with ECG of 01-FEB-2020 19:04, Aberrant conduction is now Present Questionable change in initial forces of Inferior leads Confirmed by Brian Hsu ([id number]) on 05/16/2020 11:58:29 AM Referred By: REFERRED SELF Confirmed By:Brian Hsu
--- NOTE | 2020-05-16 12:12 | History & Physical Report ---
Date of Service May 16, 2020 Assessment & Plan (1) Cellulitis of right lower leg: Concern for necrotizing fasciitis based on imaging, foul smell and given degree of pain this is a possibility. Consult orthopedics. However no crepitus on exam or rapid progression from history. Vancomycin + Zosyn started in ER and will continue this combination in addition to clindamycin. (2) Diabetic foot ulcer: Will need debridement +/- amputation. We will get COVID-19 screen performed in preparation for this. Follow up blood/wound cultures Consult orthopedics - will defer further imaging if necessary to ortho. (3) Right calf pain: Suspect from infection DP easily palpable but PT pulse unable to palpate through swelling therefore will get US arterial doppler. US venous doppler to r/o DVT (4) CAD (coronary artery disease): Restart ASA. Likely will start metoprolol succinate and lisinopril pending stability of HR and BP throughout the day. Restart atorvastatin 40mg PO daily (5) Acute hyperglycemia: Insulin 10 units IV NOW. Further management as below. (6) Diabetes mellitus: HbA1c 10.7 in January. We will repeat with a.m. labs. On no insulin at home as he never refilled his discharge medications from his hospitalization in January/Feb and never got insurance or established with a PCP however was discharged on total 96 units/day. Therefore will start with lantus 30 units BID with Novolog sliding scale with aim 140-180 (likely runs chronically in 300-400s), correction 15, carb ratio 4. (7) Acute hyponatremia: Corrected for glucose 133 - anticipate will improve to this with improved glucose control. Suspect mild dehydration causing the rest. (8) DVT prophylaxis: Deferred chemical prophylaxis pending surgical decision. History of Present Illness Chief Complaint: Right heel ulcer and cellulitis Primary Care Provider: NO PCP Sumeet Jean is a 64-year-old male with type 2 diabetes and CAD s/p CABG 3V who presents to the ER with right heel ulcer and surrounding erythema. He is here with his daughter who first became aware he had a problem on May 02. She has a picture from a week ago which appears similar to the appearance today. At best estimate he thinks it has been progressing over the last month. Foul smelling. Significant peripheral neuropathy therefore he does not have any heel pain but reports 10/10 right calf pain. No fevers or chills. Only here because of the insistence of his daughter who reports he will getting more help at home to help manage his health needs. He was hospitalized in February this year for a left sided venous ulcer on dorsal aspect of left foot. He never followed up with a PCP or wound care clinic although this fortunately. Once he ran out of his insulin prescription he was given on discharge he stopped further treatment. Previously he was drinking alcohol daily. He reports he has now not drank any alcohol for the last 3-4 weeks. His daughter is concerned he is depressed. Allergies Allergy/AdvReac Type Severity Reaction Status Date / Time No Known Allergies Allergy Unverified 05/16/20 10:40 Home Medications Home Medications Medication Instructions Recorded Confirmed Type aspirin 81 mg PO DAILY #30 tab 02/07/20 05/16/20 Rx atorvastatin 40 mg PO QAM #30 tab 02/07/20 05/16/20 Rx insulin NPH isoph U-100 human 1 units SC QDD #40 ml 02/07/20 05/16/20 Rx [Novolin N NPH U-100 Insulin] insulin NPH isoph U-100 human 30 unit SC BID #40 ml 02/07/20 05/16/20 Rx [Novolin N NPH U-100 Insulin] insulin regular human [Novolin R 12 units SC DAILY@0730 #40 ml 02/07/20 05/16/20 Rx Regular U-100 Insuln] lisinopril [Zestril] 5 mg PO QAM #30 tab 02/07/20 05/16/20 Rx needle (disp) 25 gauge #100 ea 02/07/20 Rx Past Med/Surg History Medical History Alcohol abuse Diabetes mellitus Neuropathy Surgical History History of coronary artery bypass graft x 3 Family History Other No significant family history Social History Smoking Status: Never smoker Second Hand Exposure: No; Hx Alcohol Use: Yes Alcohol type: beer Hx Substance Use: No Preferred Language: Armenian Communication Ability: Effective Conditioning Coach Required: No Beliefs That Will Affect Care: None marital status: Current Living Situation: Spouse Feels Safe at Home: Yes Assistive Devices: Denture - Upper Review of Systems Review of Systems: All systems reviewed & are unremarkable except as noted in HPI & below Physical Exam Constitutional: well developed and + frail appearing; + not well nourished and no acute distress Eyes: + anicteric sclerae; normal pupil size ENMT: external ear and nose normal, oropharynx normal Ears: no external ear abnormality Nose: no external nose abnormality Neck: trachea midline, no thyromegaly Respiratory: normal respiratory effort, lungs clear to auscultation Cardiovascular: RRR, no murmur, no edema Gastrointestinal (Abdomen): normal bowel sounds, soft, nontender, no hepatosplenomegaly Musculoskeletal: no cyanosis or clubbing, extremities motor strength 5/5 Skin: Unstageable foul smelling ulcer on right heel with full thickness skin breakdown. Achilles tendon appears intact. Painful calf to touch and swellon compared to left side. DP easily palpable but PT pulse unable to palpate. Erythema surrounding and tracking up posterior aspect of distal calf up to mid calf. Neurologic: moves all extremities and awake; not confused Motor/Sensory: + sensory deficit (below knee chronic peripheral neuropathy b/l) Psychiatric: Orientation: alert and oriented x 3 Results & Data Results & Data ([facility]) Vital Signs (Past 12 Hours) Vital Signs Temp Pulse Pulse Resp BP BP Pulse Ox 05/16/20 11:18 96 H 20 152/70 H 99 05/16/20 10:00 36.9 C 102 H 24 157/94 H 98 Diagnostic Findings RIGHT FOOT 3 VIEWS IMPRESSION: 1. No acute bony abnormality is identified. 2. A large soft tissue ulceration is identified on the posterior aspect of the heel with superficial and deep soft tissue gas and edema. Correlate clinically for evidence of cellulitis and necrotizing infection. 3. Osteopenia, degenerative change, and heel spurs as above. XR ankle RT min 3V routine IMPRESSION: 1. Large ulcer of the posterior right heel with soft tissue gas that extends superiorly to at least the distal calf. The extent of soft tissue gas is suspicious for necrotizing fasciitis. Right tibia and fibula radiographs to evaluate extent of gas are recommended. 2. No evidence for osteomyelitis within the right calcaneus by radiography. XR chest 1V portable IMPRESSION: 1. Suspected small right pleural effusion. 2. Mild cardiomegaly without evidence for pulmonary edema. 3. No consolidation. Medications Administered ER Medications given: Vancomycin 1.75g IV Zosyn 4.5g IV NSS 2L bolus ECG Indication: tachycardia Rate (beats per minute): 99 Rhythm: normal sinus Findings: + PAC Comparison ECG Date: from (February 01, 2020) Change: no significant change Code Status & VTE Plan Code Status DNR/DNI VTE Prophylaxis Plan VTE Prophylaxis will be ordered: Yes PG Care Time/CCT Total # of Minutes Spent Total Time Spent with Patient: Total time spent is greater than 50% in coordination of care (as documented) at patient's floor/unit and/or counseling patient: Coding Level of Care Code 19472 Initial Inpt Care Lvl 3 Diagnoses Cellulitis of right lower leg L03.115 Diabetic foot ulcer E10.621; L97.419 Diabetes mellitus type: type 1 Diabetic foot ulcer location: heel Laterality: right Non-pressure ulcer stage: unspecified non-pressure ulcer stage Right calf pain M79.661 CAD (coronary artery disease) I25.10 Associated angina: without angina Coronary Disease-Associated Artery/Lesion type: [place] artery [place] vs. transplanted heart: [place] heart Acute hyperglycemia R73.9 Diabetes mellitus E11.9 Diabetes mellitus type: other specified (including TEVIN) Acute hyponatremia E87.1 DVT prophylaxis Z29.9 (1) Diabetes mellitus Diabetes mellitus type: other specified (including [place]EVIN) (2) CAD (coronary artery disease) Associated angina: without angina Coronary Disease-Associated Artery/Lesion type: [place] artery [place] vs. transplanted heart: [place] heart Qualified Code(s): I25.10 - Atherosclerotic heart disease of [place] coronary artery without angina pectoris (3) Diabetic foot ulcer Diabetes mellitus type: type 1 Diabetic foot ulcer location: heel Laterality: right Non-pressure ulcer stage: unspecified non-pressure ulcer stage Qualified Code(s): E10.621 - Type 1 diabetes mellitus with foot ulcer; L97.419 - Non-pressure chronic ulcer of right heel and midfoot with unspecified severity
[2020-05-16] MEDS ORDERED: NovoLIN-R INSULIN PER UNIT CHARGE IV STA (12:37)
[2020-05-16] MEDS ORDERED: INSULIN HUMAN REGULAR PER UNIT 10 UNITS in SYRINGE 9.9 ML IV ONE ×2 (13:00→17:45)
--- NOTE | 2020-05-16 13:43 | Surgery Consultation ---
Date of Consultation May 16, 2020 Assessment & Plan (1) Diabetic foot ulcer: Complex, full-thickness diabetes related and obviously cellulitic open heel wound in an uncontrolled diabetic with a history of alcoholism who is currently in need of resuscitation and empirc antibiotic therapy. Recommend admission for parenteral resuscitation to reduce his lactate and obtain some measure of glucose control. Recommend wound care consult for recommendations regarding superficial debridement and initiation of local wound care. Recommend broad-spectrum empiric antibiotic therapy to begin immediately. He may need some surgical debridement, but this may be amenable to local superficial wound care given that he has minimal sensation . He needs to have parenteral antibiotics on board to reduce some of the cellulitis around the wound as well as some glycemic control for healing potential. He also has very low albumin, which complicates our healing expectations. We will continue to follow. Please make n.p.o. at midnight for potential surgical debridement on Friday, based on exam. He may need resuscitation through tomorrow with glycemic control, hydration, antibiotic therapy. Consider surgical debridement tomorrow or depending on his progress. Ultimately, he may have salvage of this limb which requires some aggressive wound care or soft tissue coverage. Amputation would be necessary for failure of these other means to obtain wound closure. If he becomes septic, would proceed with surgical debridement. For now he appears stable. Appreciate medical management and will continue to follow. Diabetes mellitus type: type 1 Diabetic foot ulcer location: heel Laterality: right Non-pressure ulcer stage: unspecified non-pressure ulcer stage Qualified Code(s): E10.621 - Type 1 diabetes mellitus with foot ulcer; L97.419 - Non-pressure chronic ulcer of right heel and midfoot with unspecified severity Present on Admission?: Yes (2) Cellulitis of right lower leg: History of Present Illness Reason for Consultation: Right heel diabetic foot ulcer History of Present Illness 64-year-old male with uncontrolled diabetes and a history of alcoholism presents with an another episode of severe diabetic foot ulcer. He was recently treated by the wound care team as an outpatient for a wound on the dorsum of his left foot. This apparently is healed well. He presents today with the sequela of what he described as a blister that broke down and became infected 'from the inside out.' His daughter was at the bedside support of the history that this is been going on for several days, and had to encourage him to come to the ER for care. They both report foul odor at home. He states that it is "terrible". He does not have a history that he can recall of the wound on his heel before. His daughter offers that he looks fairly sick but is already feeling better now that he has had some IV fluid in the emergency room. He does not have regular primary care. He does not follow-up with any diabetic foot care clinic. Allergies Allergy/AdvReac Type Severity Reaction Status Date / Time No Known Allergies Allergy Unverified 05/16/20 10:40 Home Medications Home Medications Medication Instructions Recorded Confirmed Type aspirin 81 mg PO DAILY #30 tab 02/07/20 05/16/20 Rx atorvastatin 40 mg PO QAM #30 tab 02/07/20 05/16/20 Rx insulin NPH isoph U-100 human 1 units SC QDD #40 ml 02/07/20 05/16/20 Rx [Novolin N NPH U-100 Insulin] insulin NPH isoph U-100 human 30 unit SC BID #40 ml 02/07/20 05/16/20 Rx [Novolin N NPH U-100 Insulin] insulin regular human [Novolin R 12 units SC DAILY@0730 #40 ml 02/07/20 05/16/20 Rx Regular U-100 Insuln] lisinopril [Zestril] 5 mg PO QAM #30 tab 02/07/20 05/16/20 Rx needle (disp) 25 gauge #100 ea 02/07/20 Rx Patient History Medical History (Updated 05/16/20 @ 13:38 by Meliton Noe MD) Alcohol abuse Diabetes mellitus Neuropathy Surgical History History of coronary artery bypass graft x 3 Family History Other No significant family history Social History Smoking Status: Never smoker Second Hand Exposure: No; Do You Dip or Chew Tobacco: No; Tobacco Cessation Education Requested by Patient: No Hx Alcohol Use: Yes Alcohol type: beer Hx Substance Use: No Preferred Language: Argentine Communication Ability: Effective Instructor Watch Assembly Required: No Beliefs That Will Affect Care: None marital status: Current Living Situation: Spouse Other Information That Helps Us Care for You: No Feels Safe at Home: Yes Safety Concerns: Feels Safe At This Time Assistive Devices: None Review of Systems Review of Systems: All systems reviewed & are unremarkable except as noted in HPI & below Respiratory: no dyspnea and no pain on inspiration Cardiovascular: no chest pain and no lightheadedness Gastrointestinal: no nausea and no vomiting Musculoskeletal: no back pain and no neck pain Physical Exam Physical Exam: Right foot: There is a full-thickness skin breakdown with dark eschar with significant fibrinous foul-smelling subcutaneous tissue on the posterior aspect of the heel near the Achilles insertion. The epidermis of the heel pad appears to be intact but could be undermined. Mechanical debridement was used at the bedside to remove some of the fibrinous material. There is some exposed periosteum of the heel. There is some necrosis of the heel pad that is most posterior margin. He has a palpable dorsalis pedis pulse. He is full active range of motion of his digits. He is hesitant for any plantar flexion dorsiflexion due to pain in his heel and distal calf. There is erythema tracking from this full-thickness wound proximally along the heel cord that dissipates as it gets to the musculotendinous junction. He is nontender over the gastroc muscle. He is nontender to the anterior compartments. Constitutional: well developed; no acute distress and not intoxicated appearing ENMT: external ear and nose normal, oropharynx normal Respiratory: normal respiratory effort; no respiratory distress Cardiovascular: Extremities: normal capillary refill; no edema Skin: no rashes, warm and dry Results & Data ([facility]) Vital Signs (Past 12 Hours) Vital Signs Temp Pulse Pulse Resp BP BP Pulse Ox 05/16/20 11:18 96 H 20 152/70 H 99 05/16/20 10:00 36.9 C 102 H 24 157/94 H 98 Radiographs of the foot include AP lateral oblique views. There is an obvious soft tissue defect of the posterior aspect of the heel with some calcified portions of his Achilles tendon. There is some soft tissue shadowing tracks along the heel cord from this full-thickness open wound. Laboratory Tests 05/16/20 05/16/20 05/16/20 09:25 09:25 09:25 WBC 12.58 H Hgb 13.9 L Hct 39.7 L Neut # (Auto) 10.26 H PT 12.0 INR 1.1 APTT 28.9 Sodium 126 L Potassium 4.2 Chloride 91 L Glucose 412 H* Lactate Albumin 2.3 L 05/16/20 10:47 WBC Hgb Hct Neut # (Auto) PT INR APTT Sodium Potassium Chloride Glucose Lactate 2.1 H* Albumin PG Care Time/CCT Total # of Minutes Spent Total Time Spent with Patient: Total time spent is greater than 50% in coordination of care (as documented) at patient's floor/unit and/or counseling patient: Coding Level of Care Code 06274 Inpt Consult Level 3 Diagnoses Diabetic foot ulcer E10.621; L97.419 Diabetes mellitus type: type 1 Diabetic foot ulcer location: heel Laterality: right Non-pressure ulcer stage: unspecified non-pressure ulcer stage Cellulitis of right lower leg L03.115
--- NOTE | 2020-05-16 14:11 | Ultrasound Report ---
US venous doppler LE RT CLINICAL HISTORY: Right leg pain. Wounds. COMPARISON STUDY: No previous studies for comparison. FINDINGS: Real-time and color flow Doppler imaging were performed. Flow was seen within the femoral, popliteal and calf veins with no intraluminal thrombus demonstrated. The saphenous vein is patent. IMPRESSION: No evidence of right lower extremity DVT. ACT 112: Negative or not required by law. Electronically signed by: Trevor Gray M.D. 05/16/2020 2:10 PM
--- NOTE | 2020-05-16 14:11 | Ultrasound Report ---
RIGHT LOWER EXTREMITY ARTERIAL DOPPLER ULTRASOUND CLINICAL HISTORY: Unable to palpate DP pulse, pre-op COMPARISON STUDY: No previous studies for comparison. TECHNIQUE: Bilateral ankle to brachial indices were obtained. Grayscale, color and duplex Doppler son ography of the arterial system of the right lower extremity was performed. FINDINGS: The right ankle-brachial index measured 1.32 when using posterior tibial artery 1.48 when u sing the dorsalis pedis. The left ankle to brachial index measured 1.28 when using posterior tibial a rtery and 1.29 when using the dorsalis pedis. No elevated velocities were identified within the right lower extremity. There was triphasic flow within the right common femoral artery as well as triphasi c flow within the right superficial femoral, popliteal arteries. There was biphasic flow within the r ight posterior tibial, peroneal and anterior tibial arteries. IMPRESSION: 1. No evidence for a hemodynamically significant stenosis within the right lower extremity. 2. Patent vessels. Biphasic and triphasic flow within the right lower extremity. 3. Ankle to brachial indices artifactually elevated but likely within normal limits. ACT 112: Negative or not required by law. Electronically signed by: Everardo Bliss M.D. 05/16/2020 2:10 PM
[2020-05-16] MEDS ORDERED: ONDANSETRON INJ 2 MG/ML 2 ML VIAL IV PRN (16:11)
[2020-05-16] MEDS ORDERED: GLUCAGON FOR INJ 1 MG VIAL SQ PRN (16:11)
[2020-05-16] MEDS ORDERED: GLUCOSE 10 TABS/TUBE PO PRN (16:11)
[2020-05-16] MEDS ORDERED: ALUMINUM/MAGNESIUM SUSP 30 ML UDC PO PRN (16:11)
[2020-05-16] MEDS ORDERED: DEXTROSE 50% 50 ML SYRINGE IV PRN (16:11)
[2020-05-16] MEDS ORDERED: POLYETHYLENE (MIRALAX) 17 GM PACK PO PRN (16:11)
[2020-05-16] MEDS ORDERED: GLUCOSE 40% GEL 15 GM TUBE PO PRN (16:11)
[2020-05-16] MEDS ORDERED: CARBOHYDRATES FOR HYPOGLYCEMIA PO PRN (16:11)
[2020-05-16] MEDS: SODIUM CHLORIDE 0.9% 1000ML 1,000 ML IV SCH (16:26)
--- NOTE | 2020-05-16 16:53 | Pharmacy Report ---
Pharmacy Abx Initial Consult - Date of Service May 16, 2020 - Pharmacy Dosing Scope Date of Consult: 05/16/2020 Consultation requested by: Dr. Watkins Pharmacy is consulted to initiate Vancomycin + Zosyn IV dosing therapy, order appropriate labs and adjust drug dose/frequency. - Subjective The patient is a 64 year old M admitted on 05/16/20 12:44. - Objective Height: 6 ft Weight: 76.2 kg Vital Signs (Past 12hrs): Vital Signs Temp Pulse Pulse Resp BP BP Pulse Ox 05/16/20 16:18 37.2 C 104 H 20 158/77 H 99 05/16/20 15:30 106 H 20 151/85 H 23 L 05/16/20 13:56 86 16 167/91 H 100 05/16/20 11:18 96 H 20 152/70 H 99 05/16/20 10:00 36.9 C 102 H 24 157/94 H 98 Lab Results (24hrs): Laboratory Tests (24 Hours) 05/16/20 05/16/20 05/16/20 10:02 09:25 09:25 WBC Neut # (Auto) ESR > 90 H Creatinine Est Cr Clr Drug Dosing C-Reactive Protein 33.70 H Procalcitonin 0.50 05/16/20 05/16/20 09:25 09:25 WBC 12.58 H Neut # (Auto) 10.26 H ESR Creatinine 1.04 Est Cr Clr Drug Dosing 78.4 C-Reactive Protein Procalcitonin Micro Results: 05/16/20 10:15 Gram Stain - Final Foot,Right Deep Wound Culture - Pending 05/16/20 10:55 Aerobic Blood Culture - Pending Blood Anaerobic Blood Culture - Pending 05/16/20 10:47 Aerobic Blood Culture - Pending Blood Anaerobic Blood Culture - Pending - Risk Factors for Resistance * Antimicrobial use within the last 90 days: * Keflex - Assessment & Plan Assessment 64 year old M admitted secondary to a diabetic foot infection with complaints of foul-smelling odor * PMHx significant for EtOH abuse and uncontrolled T2DM * Previous admission in February 2020 for same issue and cultures grew MSSA * Upon presentation: patient is afebrile, mild leukocytosis of 12.6k, renal function slightly elevated from baseline, procalcitonin at 0.50, lactic acid initially 2.1 but trending down to 1.5 after resuscitation, ESR/CRP both severely elevated. * Cultures are pending. Foot xray showed possible gas so some concern for necrotizing infection Plan Vancomycin + Zosyn + Clindamycin for treatment of diabetic foot infection Vancomycin IV * Loading dose: 1750 mg (23 mg/kg) * Maintenance dose: 1500 mg IV (19 mg/kg) every 12 hours * Goal trough level: 15 to 20 mcg/mL * Trough level ordered for 05/18/2020 to represent steady state levels Piperacillin/tazobactam * 4.5 g bolus administered over 30 minutes, then 3.375 g IV extended infusion every 8 hours for CrCl greater than 20 mL/min Clindamycin * 600 mg IV every 8 hours - appropriate per indication and renal function Pharmacy will continue to follow and will adjust dose/frequency as necessary. Thank you.
[2020-05-16 17:06] LABS: Appearance Urine Clear (Clear); Bacteria Urine Automated Negative (Negative); Bilirubin Urine Negative (Negative); Blood Urine Trace (Negative); Color Urine Yellow; Epithelial Cell Urine Auto 0-5 /lpf (0-5); Glucose Urine UA 3+ (Negative); Ketones Urine 1+ (Negative); Leukocyte Esterase Urine Negative (Negative); Nitrite Urine Negative (Negative); Protein Urine Trace (Negative); RBC Urine Automated 0-4 /hpf (0-4); Specific Gravity Urine 1.039 (1.000-1.030); Urobilinogen Urine Negative (Negative); WBC Urine Automated 0 /hpf (0-5)
[2020-05-16] MEDS ORDERED: INSULIN HUMAN REGULAR PER UNIT 10 UNITS in SYRINGE 0 ML IV STA (17:16)
[2020-05-16] MEDS: CLINDAMYCIN 600 MG in DEXTROSE 5% 50 ML IV SCH ×2 (17:27→23:29)
[2020-05-16] MEDS: INSULIN GLARGINE SOLOSTAR 100 UNITS/ML 3 ML PEN SC SCH ×2 (17:37→20:26)
[2020-05-16] MEDS: INSULIN ASPART 100 UNITS/ML 3 ML PEN SC SCH ×2 (17:38→20:27)
[2020-05-16] MEDS: PIPERACILLIN/TAZOBACTAM 3.375 GM in DEXTROSE 5% 100 ML IV SCH (20:33)
[2020-05-16] MEDS: ACETAMINOPHEN 325 MG TAB PO PRN (23:26)
[2020-05-17] MEDS: INSULIN ASPART 100 UNITS/ML 3 ML PEN SC SCH ×6 (00:02→21:11)
[2020-05-17] MEDS: VANCOMYCIN HCL 1,500 MG in SODIUM CHLORIDE 0.9% 500 ML IV SCH ×2 (00:31→12:13)
[2020-05-17] MEDS: SODIUM CHLORIDE 0.9% 1000ML 1,000 ML IV SCH (00:31)
[2020-05-17] MEDS ORDERED: Nursing to Pharmacy Communication SCH (04:30)
[2020-05-17] MEDS: PIPERACILLIN/TAZOBACTAM 3.375 GM in DEXTROSE 5% 100 ML IV SCH ×2 (04:32→12:12)
[2020-05-17 07:16] LABS: Estimated Average Glucose 312 mg/dl; Hemoglobin A1C 12.5 % (4.5-5.6)
[2020-05-17 07:18] LABS: Basophils # (auto) 0.01 K/uL (0-0.2); Basophils % (auto) 0.1 %; Eosinophils # (auto) 0.15 K/uL (0-0.5); Eosinophils % (auto) 1.9 %; Hematocrit (blood only) 29.5 % (42-52); Hemoglobin 10.2 g/dL (14.0-18.0); Immature Granulocytes # (auto) 0.02 K/uL (0.00-0.02); Immature Granulocytes % (auto) 0.2 %; Lymphocytes # (auto) 0.85 K/uL (1.2-3.4); Lymphocytes % (auto) 10.5 %; Mean Corpuscular Hemoglobin 28.6 pg (25-34); Mean Corpuscular Hgb Conc 34.6 g/dL (32-36); Mean Corpuscular Volume 82.6 fL (80-100); Mean Platelet Volume 9.5 fL (7.4-10.4); Monocytes # (auto) 0.82 K/uL (0.11-0.59); Monocytes % (auto) 10.1 %; Neutrophils # (auto) 6.23 K/uL (1.4-6.5); Neutrophils % (auto) 77.2 %; Platelet Count 179 K/uL (130-400); RDW Coefficient of Variation 11.7 % (11.5-14.5); RDW Standard Deviation 35.9 fL (36.4-46.3); Red Blood Count 3.57 M/uL (4.7-6.1); White Blood Count 8.08 K/uL (4.8-10.8)
[2020-05-17 07:28] LABS: BUN Creatinine Ratio 13.6 (10-20); Creatinine Clr Calc Pharmacy 113.2 ml/min; Est GFR (African American) 115.1; Est GFR (Non-African American) 99.3
[2020-05-17] MEDS: ASPIRIN 81 MG ECTAB PO SCH (07:47)
[2020-05-17] MEDS: ATORVASTATIN 40 MG TAB PO SCH (07:47)
[2020-05-17] MEDS: lisinopril 5 MG TAB PO SCH (07:47)
--- NOTE | 2020-05-17 08:40 | Orthopedic Progress Note ---
Date of Service May 17, 2020 Assessment & Plan (1) Cellulitis of right lower leg: (2) Diabetic foot ulcer: Stable picture. Glycemic control improving. Appears better hydrated today. Prefer wound care evaluation. Spent 10 minutes discussing goals for care and potential for amputation. Surgical options are limited. If proceed with amputation, will need to arrange for amputee rehab, likely at [facility]. Patient prefers attempt at salvage. Recommend bedside debridements with wound care team. If unable to make significant progress, can plan for surgical debridement Thurs pm 05/18 before turning back over to wound care for ongoing management. Cancel NPO for today - no urgent surgical indications. Present on Admission?: Yes Admission and Anticipated Discharge Date Admission Date: May 16, 2020 Subjective Reports low appetite, tolerable pain. Denies fevers. Feeling ok. Review of Systems Review of Systems: All systems reviewed & are unremarkable except as noted in HPI & below Physical Exam Physical Exam: RLE: heel boots in place, removed for exam. Dressing c/d/i. +tenderness along heel cord but not gastroc. Stable erythema. Painless plantar flexion, mild stretch pain on dorsiflexion. Malodorous. Constitutional: + well hydrated; no acute distress Respiratory: no respiratory distress and no labored breathing Results & Data ([facility]) Vital Signs (Past 12 Hours) Vital Signs Temp Pulse Resp BP Pulse Ox 05/17/20 07:10 37.1 C 90 17 148/80 H 97 05/16/20 23:58 37.5 C 05/16/20 23:10 38.3 C H 79 20 158/78 H 96 Laboratory Results Laboratory Tests 05/17/20 05/17/20 05:19 05:19 WBC 8.08 Hgb 10.2 L D Hct 29.5 L Hemoglobin A1c 12.5 H H & H 05/16/20 05/16/20 05/16/20 Range/Units 09:25 09:25 09:25 WBC 12.58 H (4.8-10.8) K/uL RBC 4.78 (4.7-6.1) M/uL Hgb 13.9 L (14.0-18.0) g/dL Hct 39.7 L (42-52) % MCV 83.1 (80-100) fL MCH 29.1 (25-34) pg MCHC 35.0 (32-36) g/dL RDW Std Deviation 36.2 L (36.4-46.3) fL RDW Coeff of Mau 11.9 (11.5-14.5) % Plt Count 247 (130-400) K/uL MPV 10.1 (7.4-10.4) fL Immature Gran % (Auto) 0.2 % Neut % (Auto) 81.5 % Lymph % (Auto) 9.4 % [place] % (Auto) 8.6 % Eos % (Auto) 0.2 % Baso % (Auto) 0.1 % Neut # (Auto) 10.26 H (1.4-6.5) K/uL Lymph # (Auto) 1.18 L (1.2-3.4) K/uL [place] # (Auto) 1.08 H (0.11-0.59) K/uL Eos # (Auto) 0.03 (0-0.5) K/uL Baso # (Auto) 0.01 (0-0.2) K/uL Immature Gran # (Auto) 0.02 (0.00-0.02) K/uL ESR (0-14) mm/hr PT 12.0 (9.0-12.0) Seconds INR 1.1 (0.9-1.1) APTT 28.9 (21.0-31.0) Seconds PTT Ratio 1.0 Sodium 126 L (136-145) mmol/L Potassium 4.2 (3.5-5.1) mmol/L Chloride 91 L (98-107) mmol/L Carbon Dioxide 26 (21-32) mmol/L Anion Gap 10.0 (3-11) BUN 11 (7-18) mg/dl Creatinine 1.04 (0.6-1.4) mg/dl Est Cr Clr Drug Dosing 78.4 ml/min Est GFR ( Amer) 88.1 Est GFR (Non-Af Amer) 76.1 BUN/Creatinine Ratio 10.6 (10-20) Glucose 412 H* (70-99) mg/dl POC Glucose (70-99) mg/dl Estimat Average Glucose mg/dl Hemoglobin A1c (4.5-5.6) % Lactate (0.4-2.0) mmol/L Calcium 9.5 (8.5-10.1) mg/dl Magnesium 2.0 (1.8-2.4) mg/dl Total Bilirubin 0.8 (0.2-1) mg/dl AST 13 L (15-37) U/L ALT 20 (12-78) U/L Alkaline Phosphatase 129 H (45-117) U/L Troponin I < 0.015 (0-0.045) ng/ml C-Reactive Protein (0-0.29) mg/dl Total Protein 9.4 H (6.4-8.2) gm/dl Albumin 2.3 L (3.4-5.0) gm/dl Globulin 7.1 H (2.5-4.0) gm/dl Albumin/Globulin Ratio 0.3 L (0.9-2) Beta-Hydroxybutyric Acd 16.08 H (0.2-2.81) mg/dl Procalcitonin (0-0.5) ng/ml Urine Color Urine Appearance (Clear) Urine pH (4.5-7.5) Ur Specific [place] (1.000-1.030) Urine Protein (Negative) Urine Glucose (UA) (Negative) Urine Ketones (Negative) Urine Blood (Negative) Urine Nitrite (Negative) Urine Bilirubin (Negative) Urine Urobilinogen (Negative) Ur Leukocyte Esterase (Negative) Urine WBC (Auto) (0-5) /hpf Urine RBC (Auto) (0-4) /hpf U Hyaline Cast (Auto) (0-5) /lpf U Epithel Cells (Auto) (0-5) /lpf Urine Bacteria (Auto) (Negative) COVID-19 Eval Order Hepatitis C Ab Screen (Neg) SARS-CoV-2, RNA, NAAT (NEGATIVE) 05/16/20 05/16/20 05/16/20 Range/Units 09:25 09:25 09:25 WBC (4.8-10.8) K/uL RBC (4.7-6.1) M/uL Hgb (14.0-18.0) g/dL Hct (42-52) % MCV (80-100) fL MCH (25-34) pg MCHC (32-36) g/dL RDW Std Deviation (36.4-46.3) fL RDW Coeff of Mau (11.5-14.5) % Plt Count (130-400) K/uL MPV (7.4-10.4) fL Immature Gran % (Auto) % Neut % (Auto) % Lymph % (Auto) % [place] % (Auto) % Eos % (Auto) % Baso % (Auto) % Neut # (Auto) (1.4-6.5) K/uL Lymph # (Auto) (1.2-3.4) K/uL [place] # (Auto) (0.11-0.59) K/uL Eos # (Auto) (0-0.5) K/uL Baso # (Auto) (0-0.2) K/uL Immature Gran # (Auto) (0.00-0.02) K/uL ESR (0-14) mm/hr PT (9.0-12.0) Seconds INR (0.9-1.1) APTT (21.0-31.0) Seconds PTT Ratio Sodium (136-145) mmol/L Potassium (3.5-5.1) mmol/L Chloride (98-107) mmol/L Carbon Dioxide (21-32) mmol/L Anion Gap (3-11) BUN (7-18) mg/dl Creatinine (0.6-1.4) mg/dl Est Cr Clr Drug Dosing ml/min Est GFR ( Amer) Est GFR (Non-Af Amer) BUN/Creatinine Ratio (10-20) Glucose (70-99) mg/dl POC Glucose (70-99) mg/dl Estimat Average Glucose mg/dl Hemoglobin A1c (4.5-5.6) % Lactate (0.4-2.0) mmol/L Calcium (8.5-10.1) mg/dl Magnesium (1.8-2.4) mg/dl Total Bilirubin (0.2-1) mg/dl AST (15-37) U/L ALT (12-78) U/L Alkaline Phosphatase (45-117) U/L Troponin I (0-0.045) ng/ml C-Reactive Protein 33.70 H (0-0.29) mg/dl Total Protein (6.4-8.2) gm/dl Albumin (3.4-5.0) gm/dl Globulin (2.5-4.0) gm/dl Albumin/Globulin Ratio (0.9-2) Beta-Hydroxybutyric Acd (0.2-2.81) mg/dl Procalcitonin 0.50 (0-0.5) ng/ml Urine Color Urine Appearance (Clear) Urine pH (4.5-7.5) Ur Specific [place] (1.000-1.030) Urine Protein (Negative) Urine Glucose (UA) (Negative) Urine Ketones (Negative) Urine Blood (Negative) Urine Nitrite (Negative) Urine Bilirubin (Negative) Urine Urobilinogen (Negative) Ur Leukocyte Esterase (Negative) Urine WBC (Auto) (0-5) /hpf Urine RBC (Auto) (0-4) /hpf U Hyaline Cast (Auto) (0-5) /lpf U Epithel Cells (Auto) (0-5) /lpf Urine Bacteria (Auto) (Negative) COVID-19 Eval Order Hepatitis C Ab Screen Neg (Neg) SARS-CoV-2, RNA, NAAT (NEGATIVE) 05/16/20 05/16/20 05/16/20 Range/Units 10:02 10:47 12:46 WBC (4.8-10.8) K/uL RBC (4.7-6.1) M/uL Hgb (14.0-18.0) g/dL Hct (42-52) % MCV (80-100) fL MCH (25-34) pg MCHC (32-36) g/dL RDW Std Deviation (36.4-46.3) fL RDW Coeff of [place] (11.5-14.5) % Plt Count (130-400) K/uL MPV (7.4-10.4) fL Immature Gran % (Auto) % Neut % (Auto) % Lymph % (Auto) % [place] % (Auto) % Eos % (Auto) % Baso % (Auto) % Neut # (Auto) (1.4-6.5) K/uL Lymph # (Auto) (1.2-3.4) K/uL [place] # (Auto) (0.11-0.59) K/uL Eos # (Auto) (0-0.5) K/uL Baso # (Auto) (0-0.2) K/uL Immature Gran # (Auto) (0.00-0.02) K/uL ESR > 90 H (0-14) mm/hr PT (9.0-12.0) Seconds INR (0.9-1.1) APTT (21.0-31.0) Seconds PTT Ratio Sodium (136-145) mmol/L Potassium (3.5-5.1) mmol/L Chloride (98-107) mmol/L Carbon Dioxide (21-32) mmol/L Anion Gap (3-11) BUN (7-18) mg/dl Creatinine (0.6-1.4) mg/dl Est Cr Clr Drug Dosing ml/min Est GFR ( Amer) Est GFR (Non-Af Amer) BUN/Creatinine Ratio (10-20) Glucose (70-99) mg/dl POC Glucose (70-99) mg/dl Estimat Average Glucose mg/dl Hemoglobin A1c (4.5-5.6) % Lactate 2.1 H* 1.5 (0.4-2.0) mmol/L Calcium (8.5-10.1) mg/dl Magnesium (1.8-2.4) mg/dl Total Bilirubin (0.2-1) mg/dl AST (15-37) U/L ALT (12-78) U/L Alkaline Phosphatase (45-117) U/L Troponin I (0-0.045) ng/ml C-Reactive Protein (0-0.29) mg/dl Total Protein (6.4-8.2) gm/dl Albumin (3.4-5.0) gm/dl Globulin (2.5-4.0) gm/dl Albumin/Globulin Ratio (0.9-2) Beta-Hydroxybutyric Acd (0.2-2.81) mg/dl Procalcitonin (0-0.5) ng/ml Urine Color Urine Appearance (Clear) Urine pH (4.5-7.5) Ur Specific [place] (1.000-1.030) Urine Protein (Negative) Urine Glucose (UA) (Negative) Urine Ketones (Negative) Urine Blood (Negative) Urine Nitrite (Negative) Urine Bilirubin (Negative) Urine Urobilinogen (Negative) Ur Leukocyte Esterase (Negative) Urine WBC (Auto) (0-5) /hpf Urine RBC (Auto) (0-4) /hpf U Hyaline Cast (Auto) (0-5) /lpf U Epithel Cells (Auto) (0-5) /lpf Urine Bacteria (Auto) (Negative) COVID-19 Eval Order Hepatitis C Ab Screen (Neg) SARS-CoV-2, RNA, NAAT (NEGATIVE) 05/16/20 05/16/20 05/16/20 Range/Units 14:10 14:10 17:01 WBC (4.8-10.8) K/uL RBC (4.7-6.1) M/uL Hgb (14.0-18.0) g/dL Hct (42-52) % MCV (80-100) fL MCH (25-34) pg MCHC (32-36) g/dL RDW Std Deviation (36.4-46.3) fL RDW Coeff of [place] (11.5-14.5) % Plt Count (130-400) K/uL MPV (7.4-10.4) fL Immature Gran % (Auto) % Neut % (Auto) % Lymph % (Auto) % [place] % (Auto) % Eos % (Auto) % Baso % (Auto) % Neut # (Auto) (1.4-6.5) K/uL Lymph # (Auto) (1.2-3.4) K/uL [place] # (Auto) (0.11-0.59) K/uL Eos # (Auto) (0-0.5) K/uL Baso # (Auto) (0-0.2) K/uL Immature Gran # (Auto) (0.00-0.02) K/uL ESR (0-14) mm/hr PT (9.0-12.0) Seconds INR (0.9-1.1) APTT (21.0-31.0) Seconds PTT Ratio Sodium (136-145) mmol/L Potassium (3.5-5.1) mmol/L Chloride (98-107) mmol/L Carbon Dioxide (21-32) mmol/L Anion Gap (3-11) BUN (7-18) mg/dl Creatinine (0.6-1.4) mg/dl Est Cr Clr Drug Dosing ml/min Est GFR ( Amer) Est GFR (Non-Af Amer) BUN/Creatinine Ratio (10-20) Glucose (70-99) mg/dl POC Glucose 429 H* (70-99) mg/dl Estimat Average Glucose mg/dl Hemoglobin A1c (4.5-5.6) % Lactate (0.4-2.0) mmol/L Calcium (8.5-10.1) mg/dl Magnesium (1.8-2.4) mg/dl Total Bilirubin (0.2-1) mg/dl AST (15-37) U/L ALT (12-78) U/L Alkaline Phosphatase (45-117) U/L Troponin I (0-0.045) ng/ml C-Reactive Protein (0-0.29) mg/dl Total Protein (6.4-8.2) gm/dl Albumin (3.4-5.0) gm/dl Globulin (2.5-4.0) gm/dl Albumin/Globulin Ratio (0.9-2) Beta-Hydroxybutyric Acd (0.2-2.81) mg/dl Procalcitonin (0-0.5) ng/ml Urine Color Urine Appearance (Clear) Urine pH (4.5-7.5) Ur Specific [place] (1.000-1.030) Urine Protein (Negative) Urine Glucose (UA) (Negative) Urine Ketones (Negative) Urine Blood (Negative) Urine Nitrite (Negative) Urine Bilirubin (Negative) Urine Urobilinogen (Negative) Ur Leukocyte Esterase (Negative) Urine WBC (Auto) (0-5) /hpf Urine RBC (Auto) (0-4) /hpf U Hyaline Cast (Auto) (0-5) /lpf U Epithel Cells (Auto) (0-5) /lpf Urine Bacteria (Auto) (Negative) COVID[facility]19 [email or web address] (Neg) SARS-CoV-2, RNA, NAAT NEGATIVE (NEGATIVE) 05/16/20 05/16/20 05/16/20 Range/Units 17:01 17:03 19:55 WBC (4.8-10.8) K/uL RBC (4.7-6.1) M/uL Hgb (14.0-18.0) g/dL Hct (42-52) % MCV (80-100) fL MCH (25-34) pg MCHC (32-36) g/dL RDW Std Deviation (36.4-46.3) fL RDW Coeff of [place] (11.5-14.5) % Plt Count (130-400) K/uL MPV (7.4-10.4) fL Immature Gran % (Auto) % Neut % (Auto) % Lymph % (Auto) % [place] % (Auto) % Eos % (Auto) % Baso % (Auto) % Neut # (Auto) (1.4-6.5) K/uL Lymph # (Auto) (1.2-3.4) K/uL [place] # (Auto) (0.11-0.59) K/uL Eos # (Auto) (0-0.5) K/uL Baso # (Auto) (0-0.2) K/uL Immature Gran # (Auto) (0.00-0.02) K/uL ESR (0-14) mm/hr PT (9.0-12.0) Seconds INR (0.9-1.1) APTT (21.0-31.0) Seconds PTT Ratio Sodium (136-145) mmol/L Potassium (3.5-5.1) mmol/L Chloride (98-107) mmol/L Carbon Dioxide (21-32) mmol/L Anion Gap (3-11) BUN (7-18) mg/dl Creatinine (0.6-1.4) mg/dl Est Cr Clr Drug Dosing ml/min Est GFR ( Amer) Est GFR (Non-Af Amer) BUN/Creatinine Ratio (10-20) Glucose (70-99) mg/dl POC Glucose 438 H* 433 H* 484 H* (70-99) mg/dl Estimat Average Glucose mg/dl Hemoglobin A1c (4.5-5.6) % Lactate (0.4-2.0) mmol/L Calcium (8.5-10.1) mg/dl Magnesium (1.8-2.4) mg/dl Total Bilirubin (0.2-1) mg/dl AST (15-37) U/L ALT (12-78) U/L Alkaline Phosphatase (45-117) U/L Troponin I (0-0.045) ng/ml C-Reactive Protein (0-0.29) mg/dl Total Protein (6.4-8.2) gm/dl Albumin (3.4-5.0) gm/dl Globulin (2.5-4.0) gm/dl Albumin/Globulin Ratio (0.9-2) Beta-Hydroxybutyric Acd (0.2-2.81) mg/dl Procalcitonin (0-0.5) ng/ml Urine Color Urine Appearance (Clear) Urine pH (4.5-7.5) Ur Specific [place] (1.000-1.030) Urine Protein (Negative) Urine Glucose (UA) (Negative) Urine Ketones (Negative) Urine Blood (Negative) Urine Nitrite (Negative) Urine Bilirubin (Negative) Urine Urobilinogen (Negative) Ur Leukocyte Esterase (Negative) Urine WBC (Auto) (0-5) /hpf Urine RBC (Auto) (0-4) /hpf U Hyaline Cast (Auto) (0-5) /lpf U Epithel Cells (Auto) (0-5) /lpf Urine Bacteria (Auto) (Negative) COVID-19 Eval Order Hepatitis C Ab Screen (Neg) SARS-CoV-2, RNA, NAAT (NEGATIVE) 05/16/20 05/16/20 05/16/20 Range/Units 19:56 19:57 20:15 WBC (4.8-10.8) K/uL RBC (4.7-6.1) M/uL Hgb (14.0-18.0) g/dL Hct (42-52) % MCV (80-100) fL MCH (25-34) pg MCHC (32-36) g/dL RDW Std Deviation (36.4-46.3) fL RDW Coeff of [place] (11.5-14.5) % Plt Count (130-400) K/uL MPV (7.4-10.4) fL Immature Gran % (Auto) % Neut % (Auto) % Lymph % (Auto) % [place] % (Auto) % Eos % (Auto) % Baso % (Auto) % Neut # (Auto) (1.4-6.5) K/uL Lymph # (Auto) (1.2-3.4) K/uL [place] # (Auto) (0.11-0.59) K/uL Eos # (Auto) (0-0.5) K/uL Baso # (Auto) (0-0.2) K/uL Immature Gran # (Auto) (0.00-0.02) K/uL ESR (0-14) mm/hr PT (9.0-12.0) Seconds INR (0.9-1.1) APTT (21.0-31.0) Seconds PTT Ratio Sodium (136-145) mmol/L Potassium (3.5-5.1) mmol/L Chloride (98-107) mmol/L Carbon Dioxide (21-32) mmol/L Anion Gap (3-11) BUN (7-18) mg/dl Creatinine (0.6-1.4) mg/dl Est Cr Clr Drug Dosing ml/min Est GFR ( Amer) Est GFR (Non-Af Amer) BUN/Creatinine Ratio (10-20) Glucose (70-99) mg/dl POC Glucose 399 H* 348 H* 325 H* (70-99) mg/dl Estimat Average Glucose mg/dl Hemoglobin A1c (4.5-5.6) % Lactate (0.4-2.0) mmol/L Calcium (8.5-10.1) mg/dl Magnesium (1.8-2.4) mg/dl Total Bilirubin (0.2-1) mg/dl AST (15-37) U/L ALT (12-78) U/L Alkaline Phosphatase (45-117) U/L Troponin I (0-0.045) ng/ml C-Reactive Protein (0-0.29) mg/dl Total Protein (6.4-8.2) gm/dl Albumin (3.4-5.0) gm/dl Globulin (2.5-4.0) gm/dl Albumin/Globulin Ratio (0.9-2) Beta-Hydroxybutyric Acd (0.2-2.81) mg/dl Procalcitonin (0-0.5) ng/ml Urine Color Urine Appearance (Clear) Urine pH (4.5-7.5) Ur Specific [place] (1.000-1.030) Urine Protein (Negative) Urine Glucose (UA) (Negative) Urine Ketones (Negative) Urine Blood (Negative) Urine Nitrite (Negative) Urine Bilirubin (Negative) Urine Urobilinogen (Negative) Ur Leukocyte Esterase (Negative) Urine WBC (Auto) (0-5) /hpf Urine RBC (Auto) (0-4) /hpf U Hyaline Cast (Auto) (0-5) /lpf U Epithel Cells (Auto) (0-5) /lpf Urine Bacteria (Auto) (Negative) COVID-19 Eval Order Hepatitis C Ab Screen (Neg) SARS-CoV-2, RNA, NAAT (NEGATIVE) 05/16/20 05/16/20 05/16/20 Range/Units 20:16 20:17 20:18 WBC (4.8-10.8) K/uL RBC (4.7-6.1) M/uL Hgb (14.0-18.0) g/dL Hct (42-52) % MCV (80-100) fL MCH (25-34) pg MCHC (32-36) g/dL RDW Std Deviation (36.4-46.3) fL RDW Coeff of [place] (11.5-14.5) % Plt Count (130-400) K/uL MPV (7.4-10.4) fL Immature Gran % (Auto) % Neut % (Auto) % Lymph % (Auto) % [place] % (Auto) % Eos % (Auto) % Baso % (Auto) % Neut # (Auto) (1.4-6.5) K/uL Lymph # (Auto) (1.2-3.4) K/uL [place] # (Auto) (0.11-0.59) K/uL Eos # (Auto) (0-0.5) K/uL Baso # (Auto) (0-0.2) K/uL Immature Gran # (Auto) (0.00-0.02) K/uL ESR (0-14) mm/hr PT (9.0-12.0) Seconds INR (0.9-1.1) APTT (21.0-31.0) Seconds PTT Ratio Sodium (136-145) mmol/L Potassium (3.5-5.1) mmol/L Chloride (98-107) mmol/L Carbon Dioxide (21-32) mmol/L Anion Gap (3-11) BUN (7-18) mg/dl Creatinine (0.6-1.4) mg/dl Est Cr Clr Drug Dosing ml/min Est GFR ( Amer) Est GFR (Non-Af Amer) BUN/Creatinine Ratio (10-20) Glucose (70-99) mg/dl POC Glucose 363 H* 289 H 325 H* (70-99) mg/dl Estimat Average Glucose mg/dl Hemoglobin A1c (4.5-5.6) % Lactate (0.4-2.0) mmol/L Calcium (8.5-10.1) mg/dl Magnesium (1.8-2.4) mg/dl Total Bilirubin (0.2-1) mg/dl AST (15-37) U/L ALT (12-78) U/L Alkaline Phosphatase (45-117) U/L Troponin I (0-0.045) ng/ml C-Reactive Protein (0-0.29) mg/dl Total Protein (6.4-8.2) gm/dl Albumin (3.4-5.0) gm/dl Globulin (2.5-4.0) gm/dl Albumin/Globulin Ratio (0.9-2) Beta-Hydroxybutyric Acd (0.2-2.81) mg/dl Procalcitonin (0-0.5) ng/ml Urine Color Urine Appearance (Clear) Urine pH (4.5-7.5) Ur Specific [place] (1.000-1.030) Urine Protein (Negative) Urine Glucose (UA) (Negative) Urine Ketones (Negative) Urine Blood (Negative) Urine Nitrite (Negative) Urine Bilirubin (Negative) Urine Urobilinogen (Negative) Ur Leukocyte Esterase (Negative) Urine WBC (Auto) (0-5) /hpf Urine RBC (Auto) (0-4) /hpf U Hyaline Cast (Auto) (0-5) /lpf U Epithel Cells (Auto) (0-5) /lpf Urine Bacteria (Auto) (Negative) COVID-19 Eval Order Hepatitis C Ab Screen (Neg) SARS-CoV-2, RNA, NAAT (NEGATIVE) 05/16/20 05/16/20 05/17/20 Range/Units 23:53 Unknown 01:01 WBC (4.8-10.8) K/uL RBC (4.7-6.1) M/uL Hgb (14.0-18.0) g/dL Hct (42-52) % MCV (80-100) fL MCH (25-34) pg MCHC (32-36) g/dL RDW Std Deviation (36.4-46.3) fL RDW Coeff of [place] (11.5-14.5) % Plt Count (130-400) K/uL MPV (7.4-10.4) fL Immature Gran % (Auto) % Neut % (Auto) % Lymph % (Auto) % [place] % (Auto) % Eos % (Auto) % Baso % (Auto) % Neut # (Auto) (1.4-6.5) K/uL Lymph # (Auto) (1.2-3.4) K/uL [place] # (Auto) (0.11-0.59) K/uL Eos # (Auto) (0-0.5) K/uL Baso # (Auto) (0-0.2) K/uL Immature Gran # (Auto) (0.00-0.02) K/uL ESR (0-14) mm/hr PT (9.0-12.0) Seconds INR (0.9-1.1) APTT (21.0-31.0) Seconds PTT Ratio Sodium (136-145) mmol/L Potassium (3.5-5.1) mmol/L Chloride (98-107) mmol/L Carbon Dioxide (21-32) mmol/L Anion Gap (3-11) BUN (7-18) mg/dl Creatinine (0.6-1.4) mg/dl Est Cr Clr Drug Dosing ml/min Est GFR ( Amer) Est GFR (Non-Af Amer) BUN/Creatinine Ratio (10-20) Glucose (70-99) mg/dl POC Glucose 351 H* 219 H (70-99) mg/dl Estimat Average Glucose mg/dl Hemoglobin A1c (4.5-5.6) % Lactate (0.4-2.0) mmol/L Calcium (8.5-10.1) mg/dl Magnesium (1.8-2.4) mg/dl Total Bilirubin (0.2-1) mg/dl AST (15-37) U/L ALT (12-78) U/L Alkaline Phosphatase (45-117) U/L Troponin I (0-0.045) ng/ml C-Reactive Protein (0-0.29) mg/dl Total Protein (6.4-8.2) gm/dl Albumin (3.4-5.0) gm/dl Globulin (2.5-4.0) gm/dl Albumin/Globulin Ratio (0.9-2) Beta-Hydroxybutyric Acd (0.2-2.81) mg/dl Procalcitonin (0-0.5) ng/ml Urine Color Yellow Urine Appearance Clear (Clear) Urine pH 5.0 (4.5-7.5) Ur Specific [place] 1.039 H (1.000-1.030) Urine Protein Trace H (Negative) Urine Glucose (UA) 3+ H (Negative) Urine Ketones 1+ H (Negative) Urine Blood Trace H (Negative) Urine Nitrite Negative (Negative) Urine Bilirubin Negative (Negative) Urine Urobilinogen Negative (Negative) Ur Leukocyte Esterase Negative (Negative) Urine WBC (Auto) 0 (0-5) /hpf Urine RBC (Auto) 0-4 (0-4) /hpf U Hyaline Cast (Auto) 1-5 (0-5) /lpf U Epithel Cells (Auto) 0-5 (0-5) /lpf Urine Bacteria (Auto) Negative (Negative) COVID-19 Eval Order Hepatitis C Ab Screen (Neg) SARS-CoV-2, RNA, NAAT (NEGATIVE) 05/17/20 05/17/20 05/17/20 Range/Units 03:57 05:19 05:19 WBC 8.08 (4.8-10.8) K/uL RBC 3.57 L (4.7-6.1) M/uL Hgb 10.2 L D (14.0-18.0) g/dL Hct 29.5 L (42-52) % MCV 82.6 (80-100) fL MCH 28.6 (25-34) pg MCHC 34.6 (32-36) g/dL RDW Std Deviation 35.9 L (36.4-46.3) fL RDW Coeff of Mau 11.7 (11.5-14.5) % Plt Count 179 (130-400) K/uL MPV 9.5 (7.4-10.4) fL Immature Gran % (Auto) 0.2 % Neut % (Auto) 77.2 % Lymph % (Auto) 10.5 % [place] % (Auto) 10.1 % Eos % (Auto) 1.9 % Baso % (Auto) 0.1 % Neut # (Auto) 6.23 (1.4-6.5) K/uL Lymph # (Auto) 0.85 L (1.2-3.4) K/uL [place] # (Auto) 0.82 H (0.11-0.59) K/uL Eos # (Auto) 0.15 (0-0.5) K/uL Baso # (Auto) 0.01 (0-0.2) K/uL Immature Gran # (Auto) 0.02 (0.00-0.02) K/uL ESR (0-14) mm/hr PT (9.0-12.0) Seconds INR (0.9-1.1) APTT (21.0-31.0) Seconds PTT Ratio Sodium (136-145) mmol/L Potassium (3.5-5.1) mmol/L Chloride 103 (98-107) mmol/L Carbon Dioxide 27 (21-32) mmol/L Anion Gap 5.0 (3-11) BUN 10 (7-18) mg/dl Creatinine 0.72 D (0.6-1.4) mg/dl Est Cr Clr Drug Dosing 113.2 ml/min Est GFR ( Amer) 115.1 Est GFR (Non-Af Amer) 99.3 BUN/Creatinine Ratio 13.6 (10-20) Glucose 52 L* (70-99) mg/dl POC Glucose 117 H (70-99) mg/dl Estimat Average Glucose mg/dl Hemoglobin A1c (4.5-5.6) % Lactate (0.4-2.0) mmol/L Calcium 8.0 L D (8.5-10.1) mg/dl Magnesium (1.8-2.4) mg/dl Total Bilirubin (0.2-1) mg/dl AST (15-37) U/L ALT (12-78) U/L Alkaline Phosphatase (45-117) U/L Troponin I (0-0.045) ng/ml C-Reactive Protein (0-0.29) mg/dl Total Protein (6.4-8.2) gm/dl Albumin (3.4-5.0) gm/dl Globulin (2.5-4.0) gm/dl Albumin/Globulin Ratio (0.9-2) Beta-Hydroxybutyric Acd (0.2-2.81) mg/dl Procalcitonin (0-0.5) ng/ml Urine Color Urine Appearance (Clear) Urine pH (4.5-7.5) Ur Specific [place] (1.000-1.030) Urine Protein (Negative) Urine Glucose (UA) (Negative) Urine Ketones (Negative) Urine Blood (Negative) Urine Nitrite (Negative) Urine Bilirubin (Negative) Urine Urobilinogen (Negative) Ur Leukocyte Esterase (Negative) Urine WBC (Auto) (0-5) /hpf Urine RBC (Auto) (0-4) /hpf U Hyaline Cast (Auto) (0-5) /lpf U Epithel Cells (Auto) (0-5) /lpf Urine Bacteria (Auto) (Negative) COVID-19 Eval Order Hepatitis C Ab Screen (Neg) SARS-CoV-2, RNA, NAAT (NEGATIVE) 05/17/20 05/17/20 05/17/20 Range/Units 05:19 05:53 06:32 WBC (4.8-10.8) K/uL RBC (4.7-6.1) M/uL Hgb (14.0-18.0) g/dL Hct (42-52) % MCV (80-100) fL MCH (25-34) pg MCHC (32-36) g/dL RDW Std Deviation (36.4-46.3) fL RDW Coeff of Mau (11.5-14.5) % Plt Count (130-400) K/uL MPV (7.4-10.4) fL Immature Gran % (Auto) % Neut % (Auto) % Lymph % (Auto) % [place] % (Auto) % Eos % (Auto) % Baso % (Auto) % Neut # (Auto) (1.4-6.5) K/uL Lymph # (Auto) (1.2-3.4) K/uL [place] # (Auto) (0.11-0.59) K/uL Eos # (Auto) (0-0.5) K/uL Baso # (Auto) (0-0.2) K/uL Immature Gran # (Auto) (0.00-0.02) K/uL ESR (0-14) mm/hr PT (9.0-12.0) Seconds INR (0.9-1.1) APTT (21.0-31.0) Seconds PTT Ratio Sodium (136-145) mmol/L Potassium (3.5-5.1) mmol/L Chloride (98-107) mmol/L Carbon Dioxide (21-32) mmol/L Anion Gap (3-11) BUN (7-18) mg/dl Creatinine (0.6-1.4) mg/dl Est Cr Clr Drug Dosing ml/min Est GFR ( Amer) Est GFR (Non-Af Amer) BUN/Creatinine Ratio (10-20) Glucose (70-99) mg/dl POC Glucose 82 87 (70-99) mg/dl Estimat Average Glucose 312 mg/dl Hemoglobin A1c 12.5 H (4.5-5.6) % Lactate (0.4-2.0) mmol/L Calcium (8.5-10.1) mg/dl Magnesium (1.8-2.4) mg/dl Total Bilirubin (0.2-1) mg/dl AST (15-37) U/L ALT (12-78) U/L Alkaline Phosphatase (45-117) U/L Troponin I (0-0.045) ng/ml C-Reactive Protein (0-0.29) mg/dl Total Protein (6.4-8.2) gm/dl Albumin (3.4-5.0) gm/dl Globulin (2.5-4.0) gm/dl Albumin/Globulin Ratio (0.9-2) Beta-Hydroxybutyric Acd (0.2-2.81) mg/dl Procalcitonin (0-0.5) ng/ml Urine Color Urine Appearance (Clear) Urine pH (4.5-7.5) Ur Specific [place] (1.000-1.030) Urine Protein (Negative) Urine Glucose (UA) (Negative) Urine Ketones (Negative) Urine Blood (Negative) Urine Nitrite (Negative) Urine Bilirubin (Negative) Urine Urobilinogen (Negative) Ur Leukocyte Esterase (Negative) Urine WBC (Auto) (0-5) /hpf Urine RBC (Auto) (0-4) /hpf U Hyaline Cast (Auto) (0-5) /lpf U Epithel Cells (Auto) (0-5) /lpf Urine Bacteria (Auto) (Negative) COVID-19 Eval Order Hepatitis C Ab Screen (Neg) SARS-CoV-2, RNA, NAAT (NEGATIVE) 05/17/20 Range/Units 08:17 WBC (4.8-10.8) K/uL RBC (4.7-6.1) M/uL Hgb (14.0-18.0) g/dL Hct (42-52) % MCV (80-100) fL MCH (25-34) pg MCHC (32-36) g/dL RDW Std Deviation (36.4-46.3) fL RDW Coeff of Mau (11.5-14.5) % Plt Count (130-400) K/uL MPV (7.4-10.4) fL Immature Gran % (Auto) % Neut % (Auto) % Lymph % (Auto) % [place] % (Auto) % Eos % (Auto) % Baso % (Auto) % Neut # (Auto) (1.4-6.5) K/uL Lymph # (Auto) (1.2-3.4) K/uL [place] # (Auto) (0.11-0.59) K/uL Eos # (Auto) (0-0.5) K/uL Baso # (Auto) (0-0.2) K/uL Immature Gran # (Auto) (0.00-0.02) K/uL ESR (0-14) mm/hr PT (9.0-12.0) Seconds INR (0.9-1.1) APTT (21.0-31.0) Seconds PTT Ratio Sodium (136-145) mmol/L Potassium (3.5-5.1) mmol/L Chloride (98-107) mmol/L Carbon Dioxide (21-32) mmol/L Anion Gap (3-11) BUN (7-18) mg/dl Creatinine (0.6-1.4) mg/dl Est Cr Clr Drug Dosing ml/min Est GFR ( Amer) Est GFR (Non-Af Amer) BUN/Creatinine Ratio (10-20) Glucose (70-99) mg/dl POC Glucose 75 (70-99) mg/dl Estimat Average Glucose mg/dl Hemoglobin A1c (4.5-5.6) % Lactate (0.4-2.0) mmol/L Calcium (8.5-10.1) mg/dl Magnesium (1.8-2.4) mg/dl Total Bilirubin (0.2-1) mg/dl AST (15-37) U/L ALT (12-78) U/L Alkaline Phosphatase (45-117) U/L Troponin I (0-0.045) ng/ml C-Reactive Protein (0-0.29) mg/dl Total Protein (6.4-8.2) gm/dl Albumin (3.4-5.0) gm/dl Globulin (2.5-4.0) gm/dl Albumin/Globulin Ratio (0.9-2) Beta-Hydroxybutyric Acd (0.2-2.81) mg/dl Procalcitonin (0-0.5) ng/ml Urine Color Urine Appearance (Clear) Urine pH (4.5-7.5) Ur Specific [place] (1.000-1.030) Urine Protein (Negative) Urine Glucose (UA) (Negative) Urine Ketones (Negative) Urine Blood (Negative) Urine Nitrite (Negative) Urine Bilirubin (Negative) Urine Urobilinogen (Negative) Ur Leukocyte Esterase (Negative) Urine WBC (Auto) (0-5) /hpf Urine RBC (Auto) (0-4) /hpf U Hyaline Cast (Auto) (0-5) /lpf U Epithel Cells (Auto) (0-5) /lpf Urine Bacteria (Auto) (Negative) COVID-19 Eval Order Hepatitis C Ab Screen (Neg) SARS-CoV-2, RNA, NAAT (NEGATIVE) Coagulation 05/16/20 Range/Units 09:25 INR 1.1 (0.9-1.1) PG Care Time/CCT Total # of Minutes Spent Total Time Spent with Patient: Total time spent is greater than 50% in coordination of care (as documented) at patient's floor/unit and/or counseling patient: Coding Level of Care Code 13605 Subseq Hosp Care Lvl 3 Diagnoses Cellulitis of right lower leg L03.115 Diabetic foot ulcer E10.621; L97.419 Diabetes mellitus type: type 1 Diabetic foot ulcer location: heel Laterality: right Non-pressure ulcer stage: unspecified non-pressure ulcer stage (1) Diabetic foot ulcer Diabetes mellitus type: type 1 Diabetic foot ulcer location: heel Laterality: right Non-pressure ulcer stage: unspecified non-pressure ulcer stage Qualified Code(s): E10.621 - Type 1 diabetes mellitus with foot ulcer; L97.419 - Non-pressure chronic ulcer of right heel and midfoot with unspecified severity
[2020-05-17] MEDS: CLINDAMYCIN 600 MG in DEXTROSE 5% 50 ML IV SCH ×3 (08:43→23:43)
[2020-05-17 08:51] LABS: Potassium 3.3 mmol/L (3.5-5.1)
[2020-05-17] MEDS ORDERED: INSULIN GLARGINE SOLOSTAR 100 UNITS/ML 3 ML PEN SC SCH ×2 (09:00→21:30)
[2020-05-17] MEDS ORDERED: POTASSIUM CHLORIDE CRTAB 20 MEQ TABCR PO STA (09:12)
--- NOTE | 2020-05-17 14:56 | Hospitalist Progress Note ---
Date of Service May 17, 2020 Assessment & Plan (1) Cellulitis of right lower leg: Consulted orthopedics - no need for urgent surgery, they leidy defer to wound care to see if they can salvage the site but there is concern patient will need amputation Continue Zosyn, clinda, vanc (2) Diabetic foot ulcer: Debridement by wound care attempted but patient unable to tolerate. Will continue with IV abx for now Follow up blood/wound cultures Consult orthopedics - will defer further imaging if necessary to ortho. (3) Right calf pain: Suspect from infection US venous doppler - no DVT Duplex doppler 05/16 without hemodynamically significant stenosis, biphasic and triphasic flow in the right lower extremity. Ankle to brachial indices wnl (4) CAD (coronary artery disease): Restart ASA. Continue lisinopril, Restart atorvastatin 40mg PO daily (5) Acute hyperglycemia: Pharmacy glycemic managment (6) Diabetes mellitus: HbA1c 10.7 in January, now 12.5% On no insulin at home as he never refilled his discharge medications from his hospitalization in January/Feb and never got insurance or established with a PCP however was discharged on total 96 units/day. Pharmacy glycemic consult medical educator (7) Acute hyponatremia: Resolved (8) Anemia: Hgb 10.2 down from 13.9. Will obtain repeat hgb this afternoon. No obvious s/s of bleeding. Could be at least partially dilutional (9) DVT prophylaxis: Will initiate enoxaparin as surgery is held for now Admission and Anticipated Discharge Date Admission Date: May 16, 2020 Subjective Mr. Jean is having pain in his right calf but otherwise has no complaints. His daughter was bedside and was updated. Awaiting evaluation by wound care ROS Constitutional: no chills, aches, sweats or fever Respiratory: no sob,cough, sputum, or wheezing Cardiac: no chest pain, palpitations, edema, orthopnea or lightheadedness GI: no abdominal pain, nausea, vomiting, diarrhea or constipation : no dysuria or hesitancy Extremities: no joint pain or weakness Skin: no rash All other systems reviewed and negative Physical Exam Physical Exam: General: no distress Eyes: normal inspection, PERLL Respiratory: chest non tender, clear to auscultation, normal breath sounds, no respiratory distress, no accessory muscle use Cardiac: regular rate and rhythm, no rub or gallop, no murmur, no edema, no jvd GI/: active bowel sounds, no abd pain or tenderness, soft, non distended Extremities: normal range of motion, normal strength, non tender Neuro/Psych: alert and oriented x 3, normal mood and affect Skin: normal color, dry Results & Data Results & Data ([facility]) Vital Signs (Past 12 Hours) Vital Signs Temp Pulse Resp BP Pulse Ox 05/17/20 07:10 37.1 C 90 17 148/80 H 97 PG Care Time/CCT Total # of Minutes Spent Total Time Spent with Patient: Total time spent is greater than 50% in coordination of care (as documented) at patient's floor/unit and/or counseling patient: Coding Level of Care Code 91683 Subseq Hosp Care Lvl 3 Diagnoses Cellulitis of right lower leg L03.115 Diabetic foot ulcer E10.621; L97.419 Diabetes mellitus type: type 1 Diabetic foot ulcer location: heel Laterality: right Non-pressure ulcer stage: unspecified non-pressure ulcer stage Right calf pain M79.661 CAD (coronary artery disease) I25.10 Associated angina: without angina Coronary Disease-Associated Artery/Lesion type: platinum artery [place] vs. transplanted heart: platinum heart Acute hyperglycemia R73.9 Diabetes mellitus E11.9 Diabetes mellitus type: other specified (including TEVIN) Acute hyponatremia E87.1 Anemia D64.9 DVT prophylaxis Z29.9 (1) Diabetes mellitus Diabetes mellitus type: other specified (including TEVIN) (2) CAD (coronary artery disease) Associated angina: without angina Coronary Disease-Associated Artery/Lesion type: platinum artery [place] vs. transplanted heart: platinum heart Qualified Code(s): I25.10 - Atherosclerotic heart disease of platinum coronary artery without angina pectoris (3) Diabetic foot ulcer Diabetes mellitus type: type 1 Diabetic foot ulcer location: heel Laterality: right Non-pressure ulcer stage: unspecified non-pressure ulcer stage Qualified Code(s): E10.621 - Type 1 diabetes mellitus with foot ulcer; L97.419 - Non-pressure chronic ulcer of right heel and midfoot with unspecified severity
--- NOTE | 2020-05-17 15:12 | Wound Consultation ---
Date of Consultation May 17, 2020 Assessment & Plan (1) Diabetic foot ulcer: This is a 64-year-old male with a diabetic foot ulcer of his right foot with underlying cellulitis. No debridement was done. Patient did not tolerate having his leg lifted as he has pain in his calf. Wound will be dressed with Aquacel Ag and an ultra sorb pad. Continue empiric antibiotics. Discussed with patient will see if he makes significant progress with moisture control and IV antibiotics. Likely will need surgical debridement. Thank you for limited participate in the care of this patient. Please call with any questions. Present on Admission?: Yes (2) Cellulitis of right lower leg: History of Present Illness Reason for Consultation: Diabetic foot ulcer Attending Physician: Gordon Mcintosh DO History of Present Illness This is a 64-year-old male with a history of type 2 diabetes and CAD who was admitted with cellulitis in a diabetic foot ulcer of his right foot. Patient saw orthopedics who discussed possible amputation. Patient is more interested in limb salvage. He is currently on IV antibiotics. Cultures are pending. I am asked to see the patient for wound care pending possible surgical intervention. Allergies Allergy/AdvReac Type Severity Reaction Status Date / Time No Known Allergies Allergy Unverified 05/16/20 10:40 Home Medications Home Medications Medication Instructions Recorded Confirmed Type aspirin 81 mg PO DAILY #30 tab 02/07/20 05/16/20 Rx atorvastatin 40 mg PO QAM #30 tab 02/07/20 05/16/20 Rx insulin NPH isoph U-100 human 1 units SC QDD #40 ml 02/07/20 05/16/20 Rx [Novolin N NPH U-100 Insulin] insulin NPH isoph U-100 human 30 unit SC BID #40 ml 02/07/20 05/16/20 Rx [Novolin N NPH U-100 Insulin] insulin regular human [Novolin R 12 units SC DAILY@0730 #40 ml 02/07/20 05/16/20 Rx Regular U-100 Insuln] lisinopril [Zestril] 5 mg PO QAM #30 tab 02/07/20 05/16/20 Rx needle (disp) 25 gauge #100 ea 02/07/20 Rx Patient History Medical History Alcohol abuse Diabetes mellitus Neuropathy Surgical History History of coronary artery bypass graft x 3 Family History Other No significant family history Social History Smoking Status: Never smoker Second Hand Exposure: No; Hx Alcohol Use: Yes Alcohol type: beer Hx Substance Use: No Preferred Language: Jordanian Communication Ability: Effective Crisis Worker Required: No Beliefs That Will Affect Care: None marital status: Current Living Situation: Spouse Feels Safe at Home: Yes Assistive Devices: Denture - Upper Review of Systems Review of Systems: All systems reviewed & are unremarkable except as noted in HPI & below Physical Exam Physical Exam: Temp Pulse Resp BP Pulse Ox 37.1 C 90 17 148/80 H 97 05/17/20 07:10 05/17/20 07:10 05/17/20 07:10 05/17/20 07:10 05/17/20 07:10 Constitutional: WD/WN, vitals as above Eyes: PERRL, conjunctivae normal, anicteric sclerae ENMT: external ear and nose normal, oropharynx normal Ears: no hearing impairment Skin: Wound measuring as recorded in nursing documentation. Wound is necrotic with foul odor. Periwound is erythematous. There is a large amount of drai nage. Neurologic: awake; not confused Psychiatric: A+Ox3, euthymic affect Results & Data ([facility]) Vital Signs (Past 12 Hours) Vital Signs Temp Pulse Resp BP Pulse Ox 05/17/20 07:10 37.1 C 90 17 148/80 H 97 Laboratory Results 05/17/20 05/17/20 05/17/20 Range/Units 12:05 08:17 06:32 WBC (4.8-10.8) K/uL RBC (4.7-6.1) M/uL Hgb (14.0-18.0) g/dL Hct (42-52) % MCV (80-100) fL MCH (25-34) pg MCHC (32-36) g/dL RDW Std Deviation (36.4-46.3) fL RDW Coeff of Mau (11.5-14.5) % Plt Count (130-400) K/uL MPV (7.4-10.4) fL Immature Gran % (Auto) % Neut % (Auto) % Lymph % (Auto) % [place] % (Auto) % Eos % (Auto) % Baso % (Auto) % Neut # (Auto) (1.4-6.5) K/uL Lymph # (Auto) (1.2-3.4) K/uL [place] # (Auto) (0.11-0.59) K/uL Eos # (Auto) (0-0.5) K/uL Baso # (Auto) (0-0.2) K/uL Immature Gran # (Auto) (0.00-0.02) K/uL Sodium (136-145) mmol/L Potassium (3.5-5.1) mmol/L Chloride (98-107) mmol/L Carbon Dioxide (21-32) mmol/L Anion Gap (3-11) BUN (7-18) mg/dl Creatinine (0.6-1.4) mg/dl Est Cr Clr Drug Dosing ml/min Est GFR ( Amer) Est GFR (Non-Af Amer) BUN/Creatinine Ratio (10-20) Glucose (70-99) mg/dl POC Glucose 125 H 75 87 (70-99) mg/dl Estimat Average Glucose mg/dl Hemoglobin A1c (4.5-5.6) % Calcium (8.5-10.1) mg/dl Urine Color Urine Appearance (Clear) Urine pH (4.5-7.5) Ur Specific [place] (1.000-1.030) Urine Protein (Negative) Urine Glucose (UA) (Negative) Urine Ketones (Negative) Urine Blood (Negative) Urine Nitrite (Negative) Urine Bilirubin (Negative) Urine Urobilinogen (Negative) Ur Leukocyte Esterase (Negative) Urine WBC (Auto) (0-5) /hpf Urine RBC (Auto) (0-4) /hpf U Hyaline Cast (Auto) (0-5) /lpf U Epithel Cells (Auto) (0-5) /lpf Urine Bacteria (Auto) (Negative) 05/17/20 05/17/20 05/17/20 Range/Units 05:53 05:19 05:19 WBC (4.8-10.8) K/uL RBC (4.7-6.1) M/uL Hgb (14.0-18.0) g/dL Hct (42-52) % MCV (80-100) fL MCH (25-34) pg MCHC (32-36) g/dL RDW Std Deviation (36.4-46.3) fL RDW Coeff of Mau (11.5-14.5) % Plt Count (130-400) K/uL MPV (7.4-10.4) fL Immature Gran % (Auto) % Neut % (Auto) % Lymph % (Auto) % [place] % (Auto) % Eos % (Auto) % Baso % (Auto) % Neut # (Auto) (1.4-6.5) K/uL Lymph # (Auto) (1.2-3.4) K/uL [place] # (Auto) (0.11-0.59) K/uL Eos # (Auto) (0-0.5) K/uL Baso # (Auto) (0-0.2) K/uL Immature Gran # (Auto) (0.00-0.02) K/uL Sodium 135 L D (136-145) mmol/L Potassium 3.3 L D (3.5-5.1) mmol/L Chloride 103 (98-107) mmol/L Carbon Dioxide 27 (21-32) mmol/L Anion Gap 5.0 (3-11) BUN 10 (7-18) mg/dl Creatinine 0.72 D (0.6-1.4) mg/dl Est Cr Clr Drug Dosing 113.2 ml/min Est GFR ( Amer) 115.1 Est GFR (Non-Af Amer) 99.3 BUN/Creatinine Ratio 13.6 (10-20) Glucose 52 L* (70-99) mg/dl POC Glucose 82 (70-99) mg/dl Estimat Average Glucose 312 mg/dl Hemoglobin A1c 12.5 H (4.5-5.6) % Calcium 8.0 L D (8.5-10.1) mg/dl Urine Color Urine Appearance (Clear) Urine pH (4.5-7.5) Ur Specific [place] (1.000-1.030) Urine Protein (Negative) Urine Glucose (UA) (Negative) Urine Ketones (Negative) Urine Blood (Negative) Urine Nitrite (Negative) Urine Bilirubin (Negative) Urine Urobilinogen (Negative) Ur Leukocyte Esterase (Negative) Urine WBC (Auto) (0-5) /hpf Urine RBC (Auto) (0-4) /hpf U Hyaline Cast (Auto) (0-5) /lpf U Epithel Cells (Auto) (0-5) /lpf Urine Bacteria (Auto) (Negative) 05/17/20 05/17/20 05/17/20 Range/Units 05:19 03:57 01:01 WBC 8.08 (4.8-10.8) K/uL RBC 3.57 L (4.7-6.1) M/uL Hgb 10.2 L D (14.0-18.0) g/dL Hct 29.5 L (42-52) % MCV 82.6 (80-100) fL MCH 28.6 (25-34) pg MCHC 34.6 (32-36) g/dL RDW Std Deviation 35.9 L (36.4-46.3) fL RDW Coeff of Mau 11.7 (11.5-14.5) % Plt Count 179 (130-400) K/uL MPV 9.5 (7.4-10.4) fL Immature Gran % (Auto) 0.2 % Neut % (Auto) 77.2 % Lymph % (Auto) 10.5 % [place] % (Auto) 10.1 % Eos % (Auto) 1.9 % Baso % (Auto) 0.1 % Neut # (Auto) 6.23 (1.4-6.5) K/uL Lymph # (Auto) 0.85 L (1.2-3.4) K/uL [place] # (Auto) 0.82 H (0.11-0.59) K/uL Eos # (Auto) 0.15 (0-0.5) K/uL Baso # (Auto) 0.01 (0-0.2) K/uL Immature Gran # (Auto) 0.02 (0.00-0.02) K/uL Sodium (136-145) mmol/L Potassium (3.5-5.1) mmol/L Chloride (98-107) mmol/L Carbon Dioxide (21-32) mmol/L Anion Gap (3-11) BUN (7-18) mg/dl Creatinine (0.6-1.4) mg/dl Est Cr Clr Drug Dosing ml/min Est GFR ( Amer) Est GFR (Non-Af Amer) BUN/Creatinine Ratio (10-20) Glucose (70-99) mg/dl POC Glucose 117 H 219 H (70-99) mg/dl Estimat Average Glucose mg/dl Hemoglobin A1c (4.5-5.6) % Calcium (8.5-10.1) mg/dl Urine Color Urine Appearance (Clear) Urine pH (4.5-7.5) Ur Specific [place] (1.000-1.030) Urine Protein (Negative) Urine Glucose (UA) (Negative) Urine Ketones (Negative) Urine Blood (Negative) Urine Nitrite (Negative) Urine Bilirubin (Negative) Urine Urobilinogen (Negative) Ur Leukocyte Esterase (Negative) Urine WBC (Auto) (0-5) /hpf Urine RBC (Auto) (0-4) /hpf U Hyaline Cast (Auto) (0-5) /lpf U Epithel Cells (Auto) (0-5) /lpf Urine Bacteria (Auto) (Negative) 05/16/20 05/16/20 05/16/20 Range/Units Unknown 23:53 20:18 WBC (4.8-10.8) K/uL RBC (4.7-6.1) M/uL Hgb (14.0-18.0) g/dL Hct (42-52) % MCV (80-100) fL MCH (25-34) pg MCHC (32-36) g/dL RDW Std Deviation (36.4-46.3) fL RDW Coeff of Mau (11.5-14.5) % Plt Count (130-400) K/uL MPV (7.4-10.4) fL Immature Gran % (Auto) % Neut % (Auto) % Lymph % (Auto) % [place] % (Auto) % Eos % (Auto) % Baso % (Auto) % Neut # (Auto) (1.4-6.5) K/uL Lymph # (Auto) (1.2-3.4) K/uL [place] # (Auto) (0.11-0.59) K/uL Eos # (Auto) (0-0.5) K/uL Baso # (Auto) (0-0.2) K/uL Immature Gran # (Auto) (0.00-0.02) K/uL Sodium (136-145) mmol/L Potassium (3.5-5.1) mmol/L Chloride (98-107) mmol/L Carbon Dioxide (21-32) mmol/L Anion Gap (3-11) BUN (7-18) mg/dl Creatinine (0.6-1.4) mg/dl Est Cr Clr Drug Dosing ml/min Est GFR ( Amer) Est GFR (Non-Af Amer) BUN/Creatinine Ratio (10-20) Glucose (70-99) mg/dl POC Glucose 351 H* 325 H* (70-99) mg/dl Estimat Average Glucose mg/dl Hemoglobin A1c (4.5-5.6) % Calcium (8.5-10.1) mg/dl Urine Color Yellow Urine Appearance Clear (Clear) Urine pH 5.0 (4.5-7.5) Ur Specific [place] 1.039 H (1.000-1.030) Urine Protein Trace H (Negative) Urine Glucose (UA) 3+ H (Negative) Urine Ketones 1+ H (Negative) Urine Blood Trace H (Negative) Urine Nitrite Negative (Negative) Urine Bilirubin Negative (Negative) Urine Urobilinogen Negative (Negative) Ur Leukocyte Esterase Negative (Negative) Urine WBC (Auto) 0 (0-5) /hpf Urine RBC (Auto) 0-4 (0-4) /hpf U Hyaline Cast (Auto) 1-5 (0-5) /lpf U Epithel Cells (Auto) 0-5 (0-5) /lpf Urine Bacteria (Auto) Negative (Negative) 05/16/20 05/16/20 05/16/20 Range/Units 20:17 20:16 20:15 WBC (4.8-10.8) K/uL RBC (4.7-6.1) M/uL Hgb (14.0-18.0) g/dL Hct (42-52) % MCV (80-100) fL MCH (25-34) pg MCHC (32-36) g/dL RDW Std Deviation (36.4-46.3) fL RDW Coeff of Mau (11.5-14.5) % Plt Count (130-400) K/uL MPV (7.4-10.4) fL Immature Gran % (Auto) % Neut % (Auto) % Lymph % (Auto) % [place] % (Auto) % Eos % (Auto) % Baso % (Auto) % Neut # (Auto) (1.4-6.5) K/uL Lymph # (Auto) (1.2-3.4) K/uL [place] # (Auto) (0.11-0.59) K/uL Eos # (Auto) (0-0.5) K/uL Baso # (Auto) (0-0.2) K/uL Immature Gran # (Auto) (0.00-0.02) K/uL Sodium (136-145) mmol/L Potassium (3.5-5.1) mmol/L Chloride (98-107) mmol/L Carbon Dioxide (21-32) mmol/L Anion Gap (3-11) BUN (7-18) mg/dl Creatinine (0.6-1.4) mg/dl Est Cr Clr Drug Dosing ml/min Est GFR ( Amer) Est GFR (Non-Af Amer) BUN/Creatinine Ratio (10-20) Glucose (70-99) mg/dl POC Glucose 289 H 363 H* 325 H* (70-99) mg/dl Estimat Average Glucose mg/dl Hemoglobin A1c (4.5-5.6) % Calcium (8.5-10.1) mg/dl Urine Color Urine Appearance (Clear) Urine pH (4.5-7.5) Ur Specific [place] (1.000-1.030) Urine Protein (Negative) Urine Glucose (UA) (Negative) Urine Ketones (Negative) Urine Blood (Negative) Urine Nitrite (Negative) Urine Bilirubin (Negative) Urine Urobilinogen (Negative) Ur Leukocyte Esterase (Negative) Urine WBC (Auto) (0-5) /hpf Urine RBC (Auto) (0-4) /hpf U Hyaline Cast (Auto) (0-5) /lpf U Epithel Cells (Auto) (0-5) /lpf Urine Bacteria (Auto) (Negative) 05/16/20 05/16/20 05/16/20 Range/Units 19:57 19:56 19:55 WBC (4.8-10.8) K/uL RBC (4.7-6.1) M/uL Hgb (14.0-18.0) g/dL Hct (42-52) % MCV (80-100) fL MCH (25-34) pg MCHC (32-36) g/dL RDW Std Deviation (36.4-46.3) fL RDW Coeff of Mau (11.5-14.5) % Plt Count (130-400) K/uL MPV (7.4-10.4) fL Immature Gran % (Auto) % Neut % (Auto) % Lymph % (Auto) % [place] % (Auto) % Eos % (Auto) % Baso % (Auto) % Neut # (Auto) (1.4-6.5) K/uL Lymph # (Auto) (1.2-3.4) K/uL [place] # (Auto) (0.11-0.59) K/uL Eos # (Auto) (0-0.5) K/uL Baso # (Auto) (0-0.2) K/uL Immature Gran # (Auto) (0.00-0.02) K/uL Sodium (136-145) mmol/L Potassium (3.5-5.1) mmol/L Chloride (98-107) mmol/L Carbon Dioxide (21-32) mmol/L Anion Gap (3-11) BUN (7-18) mg/dl Creatinine (0.6-1.4) mg/dl Est Cr Clr Drug Dosing ml/min Est GFR ( Amer) Est GFR (Non-Af Amer) BUN/Creatinine Ratio (10-20) Glucose (70-99) mg/dl POC Glucose 348 H* 399 H* 484 H* (70-99) mg/dl Estimat Average Glucose mg/dl Hemoglobin A1c (4.5-5.6) % Calcium (8.5-10.1) mg/dl Urine Color Urine Appearance (Clear) Urine pH (4.5-7.5) Ur Specific [place] (1.000-1.030) Urine Protein (Negative) Urine Glucose (UA) (Negative) Urine Ketones (Negative) Urine Blood (Negative) Urine Nitrite (Negative) Urine Bilirubin (Negative) Urine Urobilinogen (Negative) Ur Leukocyte Esterase (Negative) Urine WBC (Auto) (0-5) /hpf Urine RBC (Auto) (0-4) /hpf U Hyaline Cast (Auto) (0-5) /lpf U Epithel Cells (Auto) (0-5) /lpf Urine Bacteria (Auto) (Negative) 05/16/20 05/16/20 05/16/20 Range/Units 17:03 17:01 17:01 WBC (4.8-10.8) K/uL RBC (4.7-6.1) M/uL Hgb (14.0-18.0) g/dL Hct (42-52) % MCV (80-100) fL MCH (25-34) pg MCHC (32-36) g/dL RDW Std Deviation (36.4-46.3) fL RDW Coeff of Mau (11.5-14.5) % Plt Count (130-400) K/uL MPV (7.4-10.4) fL Immature Gran % (Auto) % Neut % (Auto) % Lymph % (Auto) % [place] % (Auto) % Eos % (Auto) % Baso % (Auto) % Neut # (Auto) (1.4-6.5) K/uL Lymph # (Auto) (1.2-3.4) K/uL [place] # (Auto) (0.11-0.59) K/uL Eos # (Auto) (0-0.5) K/uL Baso # (Auto) (0-0.2) K/uL Immature Gran # (Auto) (0.00-0.02) K/uL Sodium (136-145) mmol/L Potassium (3.5-5.1) mmol/L Chloride (98-107) mmol/L Carbon Dioxide (21-32) mmol/L Anion Gap (3-11) BUN (7-18) mg/dl Creatinine (0.6-1.4) mg/dl Est Cr Clr Drug Dosing ml/min Est GFR ( Amer) Est GFR (Non-Af Amer) BUN/Creatinine Ratio (10-20) Glucose (70-99) mg/dl POC Glucose 433 H* 438 H* 429 H* (70-99) mg/dl Estimat Average Glucose mg/dl Hemoglobin A1c (4.5-5.6) % Calcium (8.5-10.1) mg/dl Urine Color Urine Appearance (Clear) Urine pH (4.5-7.5) Ur Specific [place] (1.000-1.030) Urine Protein (Negative) Urine Glucose (UA) (Negative) Urine Ketones (Negative) Urine Blood (Negative) Urine Nitrite (Negative) Urine Bilirubin (Negative) Urine Urobilinogen (Negative) Ur Leukocyte Esterase (Negative) Urine WBC (Auto) (0-5) /hpf Urine RBC (Auto) (0-4) /hpf U Hyaline Cast (Auto) (0-5) /lpf U Epithel Cells (Auto) (0-5) /lpf Urine Bacteria (Auto) (Negative) Diagnostic Findings And ankle were negative for osteomyelitis PG Care Time/CCT Total # of Minutes Spent Total Time Spent with Patient: Total time spent is greater than 50% in coordination of care (as documented) at patient's floor/unit and/or counseling patient: Coding Level of Care Code 48488 Inpt Consult Level 3 Diagnoses Diabetic foot ulcer E10.621; L97.419 Diabetes mellitus type: type 1 Diabetic foot ulcer location: heel Laterality: right Non-pressure ulcer stage: unspecified non-pressure ulcer stage Cellulitis of right lower leg L03.115 (1) Diabetic foot ulcer Diabetes mellitus type: type 1 Diabetic foot ulcer location: heel Laterality: right Non-pressure ulcer stage: unspecified non-pressure ulcer stage Qualified Code(s): E10.621 - Type 1 diabetes mellitus with foot ulcer; L97.419 - Non-pressure chronic ulcer of right heel and midfoot with unspecified severity
[2020-05-17] MEDS ORDERED: PHARMACY GLYCEMIC MGMT CONSULT PRN (15:27)
[2020-05-17] MEDS: ENOXAPARIN INJ 40 MG/0.4 ML SYR SQ SCH (16:11)
[2020-05-17] MEDS: PIPERACILLIN/TAZOBACTAM 4.5 GM in DEXTROSE 5% 100 ML IV SCH (21:15)
[2020-05-17] MEDS: ACETAMINOPHEN 325 MG TAB PO PRN (21:48)
[2020-05-18] MEDS: INSULIN ASPART 100 UNITS/ML 3 ML PEN SC SCH ×6 (00:48→21:04)
[2020-05-18] MEDS: VANCOMYCIN HCL 1,500 MG in SODIUM CHLORIDE 0.9% 500 ML IV SCH ×2 (00:48→12:53)
[2020-05-18] MEDS: PIPERACILLIN/TAZOBACTAM 4.5 GM in DEXTROSE 5% 100 ML IV SCH ×3 (03:42→21:03)
[2020-05-18 06:38] LABS: Hematocrit (blood only) 29.4 % (42-52); Hemoglobin 10.1 g/dL (14.0-18.0); Mean Corpuscular Hemoglobin 28.4 pg (25-34); Mean Corpuscular Hgb Conc 34.4 g/dL (32-36); Mean Corpuscular Volume 82.6 fL (80-100); Mean Platelet Volume 9.3 fL (7.4-10.4); Platelet Count 165 K/uL (130-400); RDW Coefficient of Variation 11.7 % (11.5-14.5); RDW Standard Deviation 35.2 fL (36.4-46.3); Red Blood Count 3.56 M/uL (4.7-6.1); White Blood Count 7.19 K/uL (4.8-10.8)
[2020-05-18 06:40] LABS: BUN Creatinine Ratio 12.6 (10-20); Creatinine Clr Calc Pharmacy 131.4 ml/min; Est GFR (African American) 122.4; Est GFR (Non-African American) 105.6; Potassium 3.5 mmol/L (3.5-5.1)
[2020-05-18] MEDS: CLINDAMYCIN 600 MG in DEXTROSE 5% 50 ML IV SCH ×3 (07:39→23:45)
[2020-05-18] MEDS: lisinopril 5 MG TAB PO SCH (09:03)
[2020-05-18] MEDS: ENOXAPARIN INJ 40 MG/0.4 ML SYR SQ SCH (09:03)
[2020-05-18] MEDS: ATORVASTATIN 40 MG TAB PO SCH (09:03)
[2020-05-18] MEDS: ASPIRIN 81 MG ECTAB PO SCH (09:03)
[2020-05-18] MEDS: ACETAMINOPHEN 325 MG TAB PO PRN (10:17)
--- NOTE | 2020-05-18 11:19 | Pharmacy Report ---
Pharmacy Glycemic Short Note 2 - Date of Service May 18, 2020 - Glycemic Short BSG Results (Last 24 hours): 05/17/20 05/17/20 05/17/20 12:05 17:16 21:09 Glucose POC Glucose 125 H 299 H 259 H 05/18/20 05/18/20 05/18/20 00:12 03:47 05:36 Glucose 101 H POC Glucose 126 H 80 05/18/20 08:13 Glucose POC Glucose 146 H OUTPATIENT ANTIDIABETIC REGIMEN: * n/a - Pt did not fill insulin Rx from admission * A1c = 10.7% in January 2020; now up to 12.5% 05/17/20 ASSESSMENT: * 64yo T2DM male admitted with foot ulcer and cellulitis secondary to uncontrolled DM. * Patient has received 54 units of insulin over the past 24hrs * 30 units of basal insulin with Lantus * 24 units of bolus with NovoLog (none given with breakfast yesterday therefore this appears lower than expected) * BSGs [phone] * AM fasting BSG in goal range with 30 units of basal on board. AM fasting BSG = 146 mg/dl. * Post-prandial BSGs elevated last evening but CF/CR tightened in response to elevated pre-dinner BSG of 299. Will continue to titrate based on BSG trends. * Estimated TDD is ~ 60-70 units/day PLAN FOR INPATIENT GLYCEMIC CONTROL: * Basal insulin: no change * Lantus 30 units SQ HS * Bolus insulin: no change at this time- parameters just tightened last night * NovoLog per scale ACHS or Q6hrs while NPO * Goal Range: Low 110 mg/dL - High 140 mg/dL * Correction Factor: 15 mg/dL/unit * Nutritional / Prandial insulin per carb ratio of 1 unit per 5 grams CHO consumed PLAN FOR DISCHARGE: * A1c = 12.5 % on 05/17/20 * Goal A1c = <7 % based on age and comorbidities * A1c is greater than or equal to 10% consider triple therapy with metformin + basal insulin + (GLP1-RA OR prandial insulin). * Metformin should be started at the time type 2 diabetes is diagnosed unless there are contraindications. Metformin is effective and safe, is inexpensive, and may reduce risk of cardiovascular events and . * B12 supplementation may be necessary with assisted metformin use * Metformin XR 500mg PO daily with evening meal. Typically the XR formulation of metformin is better tolerated than the immediate release formulation. Continue to titrate metformin dosing upwards as recommended. Dosage increases should be made in increments of 500 mg weekly, up to 2,000 mg/day PO, given in divided doses. Doses above 2000 mg/day may be better tolerated if divided and given 3 times per day with meals. Max: 2,550 mg/day PO, in divided doses * Insulin regimen will depend on insurance coverage. * Could consider NPH + Regular insulin or pre-mixed NPH/Regular 70/30 insulin if cost is an issue. Total daily dose ~ 60-70 units/day but will update this closer to discharge. * If cost is not an issue, recommend glargine + NovoLog; Total daily dose ~ 60-70 units/day but will update this closer to discharge. * Support Patient Self-Management * Healthy Lifestyle (diet, exercise, and smoking cessation) * Disease self-management (SMBG) * Prevention of complications (BP, Lipid goals, Immunizations) * Consider outpatient Diabetes Self-Management Education & Support *
[2020-05-18] MEDS ORDERED: VANCOMYCIN TROUGH ONE (11:30)
--- NOTE | 2020-05-18 14:05 | Hospitalist Progress Note ---
Date of Service May 18, 2020 Assessment & Plan (1) Cellulitis of right lower leg: Continue Zosyn, clinda, vanc (2) Diabetic foot ulcer: Debridement by wound care attempted but patient unable to tolerate. Will continue with IV abx for now Ortho consulted - no need for urgent surgery, waiting to see if wound care alone can salvage leg BC - one vial growing gram positive cocci Consult orthopedics - will defer further imaging if necessary to ortho. (3) Right calf pain: Secondary to infection US venous doppler - no DVT Duplex doppler 05/16 without hemodynamically significant stenosis, biphasic and triphasic flow in the right lower extremity. Ankle to brachial indices wnl (4) CAD (coronary artery disease): Restart ASA. Continue lisinopril, Restart atorvastatin 40mg PO daily (5) Acute hyperglycemia: Pharmacy glycemic managment (6) Diabetes mellitus: HbA1c 10.7 in January, now 12.5% On no insulin at home as he never refilled his discharge medications from his hospitalization in January/Feb and never got insurance or established with a PCP however was discharged on total 96 units/day. 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 Jean is having less pain in his leg. He has no complaints today. Daughter is at bedside and was updated. ROS Constitutional: no chills, aches, sweats or fever Respiratory: no sob,cough, sputum, or wheezing Cardiac: no chest pain, palpitations, edema, orthopnea or lightheadedness GI: no abdominal pain, nausea, vomiting, diarrhea or constipation : no dysuria or hesitancy Extremities: no joint pain or weakness Skin: no rash All other systems reviewed and negative Physical Exam Physical Exam: General: no distress Eyes: normal inspection, PERLL Respiratory: chest non tender, clear to auscultation, normal breath sounds, no respiratory distress, no accessory muscle use Cardiac: regular rate and rhythm, no rub or gallop, no murmur, right lower extremity edema GI/: active bowel sounds, no abd pain or tenderness, soft, non distended Extremities: normal range of motion, normal strength, non tender Neuro/Psych: alert and oriented x 3, normal mood and affect Skin: normal color, dry Results & Data Results & Data ([facility]) Vital Signs (Past 12 Hours) Vital Signs Temp Pulse Resp BP Pulse Ox 05/18/20 07:20 37.4 C 88 18 131/73 96 PG Care Time/CCT Total # of Minutes Spent Total Time Spent with Patient: Total time spent is greater than 50% in coordination of care (as documented) at patient's floor/unit and/or counseling patient: Coding Level of Care Code 48729 Subseq Hosp Care Lvl 2 Diagnoses Cellulitis of right lower leg L03.115 Diabetic foot ulcer E10.621; L97.419 Diabetes mellitus type: type 1 Diabetic foot ulcer location: heel Laterality: right Non-pressure ulcer stage: unspecified non-pressure ulcer stage Right calf pain M79.661 CAD (coronary artery disease) I25.10 Coronary Disease-Associated Artery/Lesion type: [place] artery [place] vs. transplanted heart: [place] heart Associated angina: without angina Acute hyperglycemia R73.9 Diabetes mellitus E11.9 Diabetes mellitus type: other specified (including TEVIN) Acute hyponatremia E87.1 Anemia D64.9 DVT prophylaxis Z29.9 (1) Diabetic foot ulcer Diabetes mellitus type: type 1 Diabetic foot ulcer location: heel Laterality: right Non-pressure ulcer stage: unspecified non-pressure ulcer stage Qualified Code(s): E10.621 - Type 1 diabetes mellitus with foot ulcer; L97.419 - Non-pressure chronic ulcer of right heel and midfoot with unspecified severity (2) CAD (coronary artery disease) Coronary Disease-Associated Artery/Lesion type: [place] artery [place] vs. transplanted heart: [place] heart Associated angina: without angina Qualified Code(s): I25.10 - Atherosclerotic heart disease of [place] coronary artery without angina pectoris (3) Diabetes mellitus Diabetes mellitus type: other specified (including TEVIN)
--- NOTE | 2020-05-18 14:25 | Pharmacy Report ---
Pharmacy Abx Dose Short Note - Date of Service May 18, 2020 - Assessment & Plan Assessment 64 year old M receiving VANCOMYCIN + ZOSYN + CLINDAMYCIN for treatment of DM foot infection Foot xray showed possible gas so some concern for necrotizing infection Day # 3 of antimicrobial therapy. Plan Vancomycin * Trough level of 11.2 mcg/mL is subtherapeutic * Renal function improved significantly from admission. Pt was started on AUC dosing nomogram for crcl of ~78. Crcl now >100 ml/min. Will adjust dosing based on improvement in renal function. * Change to 1,250 mg IV every 8 hours * Goal trough level for SST : 10 to 20 mcg/mL depending on c/s * Trough level ordered for: 05/20/20 @ 0500 Zosyn * Continue 4.5g IV Q8hrs for crcl > 20 ml/min and severe infection Clindamycin * Continue 600mg IV Q8hrs Pharmacy will continue to follow and will adjust dose/frequency as necessary. Thank you.
--- NOTE | 2020-05-18 15:05 | Wound Progress Note ---
Date of Service May 18, 2020 Assessment & Plan (1) Diabetic foot ulcer: Wound appears to be clinically improving. Patient appears to have good response antibiotics as he is now able to lift his leg and wiggle his toes. Patient was debrided at bedside with with Dr. Noe assisting. Please see procedure note. Wound will be dressed with Surgicel, Aquacel Ag, ABD and Kerlix. We will plan on placing an irrigating choice cleanse wound VAC tomorrow. Patient's friend was in the room and daughter was on the phone. We answered all her questions satisfactorily. We will continue to follow. (2) Cellulitis of right lower leg: Admission and Anticipated Discharge Date Admission Date: May 16, 2020 Subjective Patient seen at bedside with WONEHA and Dr. Noe. Patient is able to wiggle his toes and lift his leg which he was unable to do yesterday. He is more comfortable although still complaining of pain in his right calf. Remains on IV antibiotics. Review of Systems Review of Systems: All systems reviewed & are unremarkable except as noted in HPI & below Physical Exam Physical Exam: Temp Pulse Resp BP Pulse Ox 37.4 C 88 18 131/73 96 05/18/20 07:20 05/18/20 07:20 05/18/20 07:20 05/18/20 07:20 05/18/20 07:20 Constitutional: WD/WN, vitals as above Skin: Wound measuring as recorded in nursing documentation. Wound covered with necrotic tissue. There is large amount of drainage and foul odor. Periwound is intact with erythema. Neurologic: awake; not confused Psychiatric: A+Ox3, euthymic affect Results & Data ([facility]) Vital Signs (Past 12 Hours) Vital Signs Temp Pulse Resp BP Pulse Ox 05/18/20 07:20 37.4 C 88 18 131/73 96 Laboratory Results 05/18/20 05/18/20 05/18/20 Range/Units 11:16 08:13 05:36 WBC 7.19 (4.8-10.8) K/uL RBC 3.56 L (4.7-6.1) M/uL Hgb 10.1 L (14.0-18.0) g/dL Hct 29.4 L (42-52) % MCV 82.6 (80-100) fL MCH 28.4 (25-34) pg MCHC 34.4 (32-36) g/dL RDW Std Deviation 35.2 L (36.4-46.3) fL RDW Coeff of Mau 11.7 (11.5-14.5) % Plt Count 165 (130-400) K/uL MPV 9.3 (7.4-10.4) fL Sodium (136-145) mmol/L Potassium (3.5-5.1) mmol/L Chloride (98-107) mmol/L Carbon Dioxide (21-32) mmol/L Anion Gap (3-11) BUN (7-18) mg/dl Creatinine (0.6-1.4) mg/dl Est Cr Clr Drug Dosing ml/min Est GFR ( Amer) Est GFR (Non-Af Amer) BUN/Creatinine Ratio (-20) Glucose (70-99) mg/dl POC Glucose 146 H (70-99) mg/dl Calcium (8.5-10.1) mg/dl Vancomycin Trough 11.2 (See Comment) mcg/ml 05/18/20 05/18/20 05/18/20 Range/Units 05:36 03:47 00:12 WBC (4.8-10.8) K/uL RBC (4.7-6.1) M/uL Hgb (14.0-18.0) g/dL Hct (42-52) % MCV (80-100) fL MCH (25-34) pg MCHC (32-36) g/dL RDW Std Deviation (36.4-46.3) fL RDW Coeff of Mau (11.5-14.5) % Plt Count (130-400) K/uL MPV (7.4-10.4) fL Sodium 134 L (136-145) mmol/L Potassium 3.5 (3.5-5.1) mmol/L Chloride 102 (98-107) mmol/L Carbon Dioxide 25 (21-32) mmol/L Anion Gap 7.0 (3-11) BUN 8 (7-18) mg/dl Creatinine 0.62 (0.6-1.4) mg/dl Est Cr Clr Drug Dosing 131.4 ml/min Est GFR ( Amer) 122.4 Est GFR (Non-Af Amer) 105.6 BUN/Creatinine Ratio 12.6 (10-20) Glucose 101 H (70-99) mg/dl POC Glucose 80 126 H (70-99) mg/dl Calcium 8.0 L (8.5-10.1) mg/dl Vancomycin Trough (See Comment) mcg/ml 05/17/20 05/17/20 05/17/20 Range/Units 21:09 17:16 15:34 WBC (4.8-10.8) K/uL RBC (4.7-6.1) M/uL Hgb 10.6 L (14.0-18.0) g/dL Hct (42-52) % MCV (80-100) fL MCH (25-34) pg MCHC (32-36) g/dL RDW Std Deviation (36.4-46.3) fL RDW Coeff of Mau (11.5-14.5) % Plt Count (130-400) K/uL MPV (7.4-10.4) fL Sodium (136-145) mmol/L Potassium (3.5-5.1) mmol/L Chloride (98-107) mmol/L Carbon Dioxide (21-32) mmol/L Anion Gap (3-11) BUN (7-18) mg/dl Creatinine (0.6-1.4) mg/dl Est Cr Clr Drug Dosing ml/min Est GFR ( Amer) Est GFR (Non-Af Amer) BUN/Creatinine Ratio (10-20) Glucose (70-99) mg/dl POC Glucose 259 H 299 H (70-99) mg/dl Calcium (8.5-10.1) mg/dl Vancomycin Trough (See Comment) mcg/ml PG Care Time/CCT Total # of Minutes Spent Total Time Spent with Patient: Total time spent is greater than 50% in coordination of care (as documented) at patient's floor/unit and/or counseling patient: Coding Level of Care Code 28243 Subseq Hosp Care Lvl 2 Diagnoses Diabetic foot ulcer E10.621; L97.419 Diabetes mellitus type: type 1 Diabetic foot ulcer location: heel Laterality: right Non-pressure ulcer stage: unspecified non-pressure ulcer stage Cellulitis of right lower leg L03.115 (1) Diabetic foot ulcer Diabetes mellitus type: type 1 Diabetic foot ulcer location: heel Laterality: right Non-pressure ulcer stage: unspecified non-pressure ulcer stage Qualified Code(s): E10.621 - Type 1 diabetes mellitus with foot ulcer; L97.419 - Non-pressure chronic ulcer of right heel and midfoot with unspecified severity
--- NOTE | 2020-05-18 15:29 | Procedure Note ---
Procedure Note Date of Service May 18, 2020 Note Procedure excisional debridement Performed by Dr. Coe, [employer] Manager Dr. Noe Indication: Necrotic diabetic foot ulcer. Patient was identified. Patient was placed in prone position. Wound was prepped in a semisterile fashion. Using scissors, forceps and a scalpel the wound was debrided of necrotic subcutaneous tissue. Minimal bleeding was controlled with pressure, silver nitrate and Surgicel. Patient tolerated the procedure well. This represents an excisional debridement of 160 cm. Wound will be dressed with Surgicel, Aquacel Ag, ABDs and Kerlix. Complications: None Blood loss: Minimal Condition: stable Coding
--- NOTE | 2020-05-18 17:28 | Orthopedic Progress Note ---
Date of Service May 18, 2020 Assessment & Plan (1) Diabetic foot ulcer: Sumeet remains with a problematic posterior calcaneal full-thickness skin loss from a decubitus ulcer and associated cellulitis. A majority of the gangrenous tissue was removed today sharply at the bedside with the help of the wound care team. The plan for now after discussion with the patient and his family members at the bedside and on the phone, is to proceed with wound care and serial debridements in an attempt to salvage his limb from a below-knee amputation. I did state that a below-knee amputation will be planned and will need to have coordinated postoperative rehabilitation care. For now, I will remain available as needed to the wound care team for assistance with sharp debridement. Given his tolerance of the procedure today, I think we can do most of the work at the bedside rather than the operating room. His lower extremity cellulitis seems to be improving daily. Hopefully, he can become stable on an oral regimen soon for outpatient management. I defer antibiotic therapy to the primary care team. Please contact me for any further questions or consultation. Present on Admission?: Yes (2) Cellulitis of left lower leg: Admission and Anticipated Discharge Date Admission Date: May 16, 2020 Subjective Patient seen and evaluated this morning and again in coordination with the wound care team. Patient reports that he is feeling "good". He thinks his pain is slightly improved but he remains with pain at the calf. He says his appetite is good. He denies any fevers or chills. Review of Systems Review of Systems: All systems reviewed & are unremarkable except as noted in HPI & below Physical Exam Physical Exam: RLE: heel boots in place, removed for exam. Dressing c/d/i. +tenderness along heel cord but not gastroc. Stable erythema. Painless plantarflexion, mild stretch pain on dorsiflexion. Malodorous. Further exam deferred until wound care team was available. Constitutional: + well hydrated; no acute distress Respiratory: no respiratory distress and no labored breathing Results & Data ([facility]) Vital Signs (Past 12 Hours) Vital Signs Temp Pulse Resp BP Pulse Ox 05/18/20 15:44 37.1 C 101 H 18 147/81 H 98 05/18/20 07:20 37.4 C 88 18 131/73 96 Diagnostic Findings Bedside wound evaluation and sharp debridement: A coordinated approach to wound evaluation debridement was made today with the wound care team. The wound care team had the patient in the prone position and the wound exposed upon my arrival. They begun gentle debridement. I assisted with additional sharp debridement of the necrotic tissue overlying the Achilles insertion as well as the periosteum of the posterior calcaneus. The wound did propagate to the lateral border of the calcaneus and there is necrotic epidermis skin involving the heel pad. There was fat necrosis involving the most posterior aspect of the heel pad. The majority of the necrotic material was debrided. There was bright red bleeding in the wound bed from certain portions of the fat pad and periosteum. The wound bed seem to be amenable to further wound management with serial debridements and potential wound VAC application. In consultation with the wound care team, I support the decision to continue an attempt at salvage of this heel wound. We did frankly discuss alternatives for amputation which would be at quicker means of treatment back to ambulation. He does have a viable distal foot, so we decided to attempt further wound care. The wound was then left to the care of the wound care team for final dressing today. PG Care Time/CCT Total # of Minutes Spent Total Time Spent with Patient: Total time spent is greater than 50% in coordination of care (as documented) at patient's floor/unit and/or counseling patient: Coding Level of Care Code 71300 Subseq Hosp Care Lvl 3 Diagnoses Diabetic foot ulcer E10.621; L97.419 Diabetes mellitus type: type 1 Diabetic foot ulcer location: heel Laterality: right Non-pressure ulcer stage: unspecified non-pressure ulcer stage Cellulitis of left lower leg L03.116 (1) Diabetic foot ulcer Diabetes mellitus type: type 1 Diabetic foot ulcer location: heel Laterality: right Non-pressure ulcer stage: unspecified non-pressure ulcer stage Qualified Code(s): E10.621 - Type 1 diabetes mellitus with foot ulcer; L97.419 - Non-pressure chronic ulcer of right heel and midfoot with unspecified severity
[2020-05-18] MEDS: VANCOMYCIN HCL 1,250 MG in SODIUM CHLORIDE 0.9% 250 ML IV SCH (21:03)
[2020-05-18] MEDS: MELATONIN 3 MG TAB PO PRN (21:03)
[2020-05-18] MEDS: INSULIN GLARGINE SOLOSTAR 100 UNITS/ML 3 ML PEN SC SCH (21:04)
[2020-05-19] MEDS: PIPERACILLIN/TAZOBACTAM 4.5 GM in DEXTROSE 5% 100 ML IV SCH ×3 (03:44→20:31)
[2020-05-19] MEDS: VANCOMYCIN HCL 1,250 MG in SODIUM CHLORIDE 0.9% 250 ML IV SCH ×3 (04:48→21:03)
[2020-05-19 07:45] LABS: Hematocrit (blood only) 27.9 % (42-52); Hemoglobin 9.8 g/dL (14.0-18.0); Mean Corpuscular Hemoglobin 28.7 pg (25-34); Mean Corpuscular Hgb Conc 35.1 g/dL (32-36); Mean Corpuscular Volume 81.6 fL (80-100); Mean Platelet Volume 8.7 fL (7.4-10.4); Platelet Count 154 K/uL (130-400); RDW Coefficient of Variation 11.7 % (11.5-14.5); Red Blood Count 3.42 M/uL (4.7-6.1); White Blood Count 8.06 K/uL (4.8-10.8)
[2020-05-19 08:14] LABS: Albumin Level 1.4 gm/dl (3.4-5.0); BUN Creatinine Ratio 7.9 (10-20); Calcium 8.1 mg/dl (8.5-10.1); Creatinine Clr Calc Pharmacy 135.8 ml/min; Potassium 3.4 mmol/L (3.5-5.1)
[2020-05-19 08:17] LABS: Albumin Globulin Ratio 0.3 (0.9-2); Bilirubin,Total 0.4 mg/dl (0.2-1); Globulin 4.9 gm/dl (2.5-4.0); Total Protein 6.4 gm/dl (6.4-8.2)
[2020-05-19] MEDS: lisinopril 5 MG TAB PO SCH (08:32)
[2020-05-19] MEDS: ASPIRIN 81 MG ECTAB PO SCH (08:32)
[2020-05-19] MEDS: ATORVASTATIN 40 MG TAB PO SCH (08:32)
[2020-05-19] MEDS: ENOXAPARIN INJ 40 MG/0.4 ML SYR SQ SCH (08:33)
[2020-05-19] MEDS: CLINDAMYCIN 600 MG in DEXTROSE 5% 50 ML IV SCH ×2 (08:35→16:21)
[2020-05-19] MEDS ORDERED: POTASSIUM CHLORIDE CRTAB 20 MEQ TABCR PO STA (08:37)
[2020-05-19] MEDS: INSULIN ASPART 100 UNITS/ML 3 ML PEN SC SCH ×4 (08:42→20:59)
--- NOTE | 2020-05-19 08:51 | Pharmacy Report ---
Pharmacy Glycemic Short Note 2 - Date of Service May 19, 2020 - Glycemic Short BSG Results (Last 24 hours): 05/18/20 05/18/20 05/19/20 17:20 20:42 07:31 Glucose 76 POC Glucose 218 H 212 H 05/19/20 07:59 Glucose POC Glucose 83 OUTPATIENT ANTIDIABETIC REGIMEN: * n/a - Pt did not fill insulin Rx from admission * A1c = 10.7% in January 2020; now up to 12.5% 05/17/20 ASSESSMENT: * 64yo T2DM male admitted with foot ulcer and cellulitis secondary to uncontrolled DM. * Currently receiving vancomycin, piperacillin/tazobactam, and clindamycin IV * Patient underwent excisional debridement at bedside yesterday * Patient has received 65 units of insulin over the past 24hrs * 30 units of basal insulin with Lantus * 35 units of bolus with NovoLog * BSGs 146, no pre-lunch BSG check, 218, and 212 mg/dL * Fasting BSG of 83 mg/dL this morning - plan to continue currently ordered Lantus * Novolog tightened last evening - will continue this morning PLAN FOR INPATIENT GLYCEMIC CONTROL: * Basal insulin: no change * Lantus 30 units SQ HS * Bolus insulin: continue recently tightened parameters * NovoLog per scale ACHS or Q6hrs while NPO * Goal Range: Low 110 mg/dL - High 140 mg/dL * Correction Factor: 12 mg/dL/unit * Nutritional / Prandial insulin per carb ratio of 1 unit per 4 grams CHO consumed PLAN FOR DISCHARGE: * A1c = 12.5 % on 05/17/20 * Goal A1c = <7 % based on age and comorbidities * A1c is greater than or equal to 10% consider triple therapy with metformin + basal insulin + (GLP1-RA OR prandial insulin). * Metformin should be started at the time type 2 diabetes is diagnosed unless there are contraindications. Metformin is effective and safe, is inexpensive, and may reduce risk of cardiovascular events and . * B12 supplementation may be necessary with termite inspector metformin use * Metformin XR 500mg PO daily with evening meal. Typically the XR formulation of metformin is better tolerated than the immediate release formulation. Continue to titrate metformin dosing upwards as recommended. Dosage increases should be made in increments of 500 mg weekly, up to 2,000 mg/day PO, given in divided doses. Doses above 2000 mg/day may be better tolerated if divided and given 3 times per day with meals. Max: 2,550 mg/day PO, in divided doses * Insulin regimen will depend on insurance coverage. * Could consider NPH + Regular insulin or pre-mixed NPH/Regular 70/30 insulin if cost is an issue. Total daily dose ~ 60-70 units/day but will update this closer to discharge. * If cost is not an issue, recommend glargine + NovoLog; Total daily dose ~ 60-70 units/day but will update this closer to discharge. * Support Patient Self-Management * Healthy Lifestyle (diet, exercise, and smoking cessation) * Disease self-management (SMBG) * Prevention of complications (BP, Lipid goals, Immunizations) * Consider outpatient Diabetes Self-Management Education & Support *
--- NOTE | 2020-05-19 12:42 | Hospitalist Progress Note ---
Date of Service May 19, 2020 Assessment & Plan (1) Cellulitis of right lower leg: Continue Zosyn, clinda, vanc (2) Diabetic foot ulcer: Debridement bedside 05/18 Ortho consulted - no need for urgent surgery, waiting to see if wound care alone can salvage leg BC - one vial growing gram positive cocci anaerobe, surface culture with alpha strep and gram negative anaerobe, wound culture from debridement pending Consult orthopedics - will defer further imaging if necessary to ortho. (3) Right calf pain: Secondary to infection, improving US venous doppler - no DVT Duplex doppler 05/16 without hemodynamically significant stenosis, biphasic and triphasic flow in the right lower extremity. Ankle to brachial indices wnl (4) CAD (coronary artery disease): Restart ASA. Continue lisinopril, Restart atorvastatin 40mg PO daily (5) Acute hyperglycemia: Pharmacy glycemic managment (6) Diabetes mellitus: HbA1c 10.7 in January, now 12.5% On no insulin at home as he never refilled his discharge medications from his hospitalization in January/Feb and never got insurance or established with a PCP however was discharged on total 96 units/day. 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 Jean apparently hit the left side of his face on the bathroom counter last evening but reports he feels fine today, no headache, no pain in his cheek. He has no complaints generally. ROS Constitutional: no chills, aches, sweats or fever Respiratory: no sob,cough, sputum, or wheezing Cardiac: no chest pain, palpitations, edema, orthopnea or lightheadedness GI: no abdominal pain, nausea, vomiting, diarrhea or constipation : no dysuria or hesitancy Extremities: no joint pain or weakness Skin: no rash All other systems reviewed and negative Physical Exam Physical Exam: General: no distress Eyes: normal inspection, PERLL Respiratory: chest non tender, clear to auscultation, normal breath sounds, no respiratory distress, no accessory muscle use Cardiac: regular rate and rhythm, no rub or gallop, no murmur, no edema, no jvd GI/: active bowel sounds, no abd pain or tenderness, soft, non distended Extremities: normal range of motion, normal strength, non tender Neuro/Psych: alert and oriented x 3, normal mood and affect Skin: normal color, dry Results & Data Results & Data ([facility]) Vital Signs (Past 12 Hours) Vital Signs Temp Pulse Resp BP Pulse Ox 05/19/20 07:22 37 C 79 18 135/69 97 05/19/20 03:44 37.0 C 101 H 20 127/68 97 PG Care Time/CCT Total # of Minutes Spent Total Time Spent with Patient: Total time spent is greater than 50% in coordination of care (as documented) at patient's floor/unit and/or counseling patient: Coding Level of Care Code 14429 Subseq Hosp Care Lvl 2 Diagnoses Cellulitis of right lower leg L03.115 Diabetic foot ulcer E10.621; L97.419 Diabetes mellitus type: type 1 Diabetic foot ulcer location: heel Laterality: right Non-pressure ulcer stage: unspecified non-pressure ulcer stage Right calf pain M79.661 CAD (coronary artery disease) I25.10 Coronary Disease-Associated Artery/Lesion type: [place] artery [place] vs. transplanted heart: [place] heart Associated angina: without angina Acute hyperglycemia R73.9 Diabetes mellitus E11.9 Diabetes mellitus type: other specified (including TEVIN) Acute hyponatremia E87.1 Anemia D64.9 DVT prophylaxis Z29.9 (1) Diabetic foot ulcer Diabetes mellitus type: type 1 Diabetic foot ulcer location: heel Laterality: right Non-pressure ulcer stage: unspecified non-pressure ulcer stage Qualified Code(s): E10.621 - Type 1 diabetes mellitus with foot ulcer; L97.419 - Non-pressure chronic ulcer of right heel and midfoot with unspecified severity (2) CAD (coronary artery disease) Coronary Disease-Associated Artery/Lesion type: [place] artery [place] vs. transplanted heart: [place] heart Associated angina: without angina Qualified Code(s): I25.10 - Atherosclerotic heart disease of [place] coronary artery without angina pectoris (3) Diabetes mellitus Diabetes mellitus type: other specified (including TEVIN)
--- NOTE | 2020-05-19 13:13 | Wound Progress Note ---
Date of Service May 19, 2020 Assessment & Plan (1) Diabetic ulcer of right heel: Wound is stable. No debridement performed. Patient would benefit from a cleanse choice VAC, but I would like to get an MRI to definitively r/o osteomyelitis or underlying abscess. Wound will be dressed with plain Aquacel today. Wound was recultured as it was noted to be malodorous today. Continue current IV abx. May consider ID consult pending MRI results. Primary goal is wound healing. Wound will continue to follow along as needed. (2) Type II diabetes mellitus, uncontrolled: Admission and Anticipated Discharge Date Admission Date: May 16, 2020 Subjective 64-year-old male with a diabetic ulcer of the right heel in the setting of uncontrolled diabetes. Last hemoglobin A1c was noted to be 12.5% on May 17, 2020. Wound was debrided yesterday by Dr. Noe and Dr. Coe. Wound is being dressed with Aquacel Ag. Patient remains on IV Zosyn, clindamycin, and vancomycin. He is offloading with a waffle boot. Review of Systems Constitutional: no fever and no chills Respiratory: no dyspnea Cardiovascular: no chest pain Gastrointestinal: no abdominal pain, no nausea and no vomiting Psychiatric: no confusion Physical Exam Physical Exam: Temp Pulse Resp BP Pulse Ox 37 C 79 18 135/69 97 05/19/20 07:22 05/19/20 07:22 05/19/20 07:22 05/19/20 07:22 05/19/20 07:22 Patient is afebrile. Vital signs stable. Wound base is covered in fibrinous tissue and necrotic tissue. Wound is malodorous. Moderate amount of serosanguineous drainage is noted. Periwound is erythematous. Constitutional: average body habitus; no acute distress ENMT: Ears: no hearing impairment Neck: normal visual inspection Respiratory: no respiratory distress Psychiatric: A+Ox3, euthymic affect Results & Data ([facility]) Vital Signs (Past 12 Hours) Vital Signs Temp Pulse Resp BP Pulse Ox 05/19/20 07:22 37 C 79 18 135/69 97 05/19/20 03:44 37.0 C 101 H 20 127/68 97 PG Care Time/CCT Total # of Minutes Spent Total Time Spent with Patient: Total time spent is greater than 50% in coordination of care (as documented) at patient's floor/unit and/or counseling patient: Coding Level of Care Code 86212 Subseq Hosp Care Lvl 3 Diagnoses Diabetic ulcer of right heel E11.621; L97.419 Type II diabetes mellitus, uncontrolled E11.65
[2020-05-19] MEDS ORDERED: GADOBUTROL 65ML VIAL IV ONE (14:34)
--- NOTE | 2020-05-19 15:20 | Magnetic Resonance Report ---
MR ankle RT wo/w con CLINICAL HISTORY: Nonhealing right heel ulcer. Evaluate for osteomyelitis. COMPARISON STUDY: X-ray study dated 05/16/2020 FINDINGS: Images were acquired in the axial sagittal and coronal planes, before and after the adminis tration of 7.6 cc of intravenous Gadavist. There is susceptibility artifact within the posterior soft tissues paralleling the Achilles tendon, c onsistent with soft tissue gas as was visualized on the prior x-ray. This may indicate necrotizing fa sciitis. There is a large soft tissue ulceration at the posterior calcaneal level. This appears to extend to t he level of the bone. There is T1 and T2 marrow edema within the calcaneus indicative of osteomyeliti s. In addition, there is a linear focus of T1 and T2 edema within the mid calcaneal body consistent with insufficiency fracture. There is moderate soft tissue edema. There are no fluid collections to indicate an abscess. There is postinflammatory enhancement. No enhancing masses are visualized. There is marked attenuation of the distal Achilles tendon suspicious for a tear. IMPRESSION: 1. Large skin ulceration at the level the posterior calcaneus 2. T1 and T2 marrow edema involving the posterior calcaneus indicative of acute osteomyelitis 3. Susceptibility artifact within the posterior soft tissues correlating to the gas visualized on the prior x-ray. The findings are suspicious for necrotizing fasciitis. 4. Distal Achilles tendon tear. 5. Linear defect within the mid calcaneal body consistent with an insufficiency fracture ACT 112: Negative or not required by law. Electronically signed by: Trevor Gray M.D. 05/19/2020 3:19 PM
[2020-05-19] MEDS: INSULIN GLARGINE SOLOSTAR 100 UNITS/ML 3 ML PEN SC SCH (20:59)
[2020-05-19] MEDS: ACETAMINOPHEN 325 MG TAB PO PRN (21:28)
[2020-05-20] MEDS: CLINDAMYCIN 600 MG in DEXTROSE 5% 50 ML IV SCH ×4 (00:15→23:56)
[2020-05-20] MEDS: PIPERACILLIN/TAZOBACTAM 4.5 GM in DEXTROSE 5% 100 ML IV SCH ×3 (04:17→19:50)
[2020-05-20] MEDS: VANCOMYCIN HCL 1,250 MG in SODIUM CHLORIDE 0.9% 250 ML IV SCH ×3 (04:21→21:24)
[2020-05-20] MEDS ORDERED: VANCOMYCIN TROUGH ONE (04:30)
[2020-05-20 04:31] LABS: Hematocrit (blood only) 30.8 % (42-52); Hemoglobin 10.5 g/dL (14.0-18.0); Mean Corpuscular Hemoglobin 28.2 pg (25-34); Mean Corpuscular Hgb Conc 34.1 g/dL (32-36); Mean Corpuscular Volume 82.8 fL (80-100); Platelet Count 184 K/uL (130-400); RDW Coefficient of Variation 11.9 % (11.5-14.5); RDW Standard Deviation 35.8 fL (36.4-46.3); Red Blood Count 3.72 M/uL (4.7-6.1)
[2020-05-20 04:59] LABS: BUN Creatinine Ratio 9.1 (10-20); Calcium 8.2 mg/dl (8.5-10.1); Creatinine Clr Calc Pharmacy 105.8 ml/min; Est GFR (African American) 111.9; Est GFR (Non-African American) 96.6; Potassium 4.1 mmol/L (3.5-5.1)
[2020-05-20] MEDS: ENOXAPARIN INJ 40 MG/0.4 ML SYR SQ SCH (08:25)
[2020-05-20] MEDS: lisinopril 5 MG TAB PO SCH (08:25)
[2020-05-20] MEDS: INSULIN ASPART 100 UNITS/ML 3 ML PEN SC SCH ×4 (08:25→21:33)
[2020-05-20] MEDS: ASPIRIN 81 MG ECTAB PO SCH (08:25)
[2020-05-20] MEDS: ATORVASTATIN 40 MG TAB PO SCH (08:25)
--- NOTE | 2020-05-20 09:16 | Pharmacy Report ---
Pharmacy Abx Dose Short Note - Date of Service May 20, 2020 - Assessment & Plan Assessment 64 year old M receiving vancomycin, Zosyn, and clindamycin for treatment of right foot infection likely secondary to uncontrolled diabetes mellitus (HbA1c: 12.5%). Ankle MRI completed yesterday - findings indicative of acute osteomyelitis of posterior calcaneus + suspicious for necrotizing fasciitis. Right foot culture growing alpha streptococcus (not enterococcus) and Prevotella bivia. Patient underwent bedside excisional debridement on 05/18. Broad spectrum antibiotics remain appropriate at this time. ID consulted on 05/19/20 - awaiting recs. Day # 5 of antimicrobial therapy. Plan Vancomycin * Trough level of 19.3 mcg/mL is therapeutic * Targeting level closer to 20 would be preferred given concern for osteomyelitis * Continue dose of 1250 mg IV every 8 hours * Will recheck SCr tomorrow morning and order follow-up trough as appropriate Zosyn * 4.5 g IV q8h - appropriate given severity of infection Clindamycin * 600 mg IV q8h - appropriate given concern for necrotizing fasciitis and growth of Prevotella bivia Pharmacy will continue to follow and will adjust dose/frequency as necessary. Thank you.
[2020-05-20] MEDS: ACETAMINOPHEN 325 MG TAB PO PRN (12:53)
--- NOTE | 2020-05-20 14:37 | Hospitalist Progress Note ---
Date of Service May 20, 2020 Assessment & Plan (1) Cellulitis of right lower leg: Continue Zosyn, clinda, vanc (2) Diabetic foot ulcer: Debridement bedside 05/18 Ortho consulted - no need for urgent surgery, waiting to see if wound care alone can salvage leg BC - one vial growing gram positive cocci anaerobe, surface culture with alpha strep and gram negative anaerobe, wound culture from debridement pending 05/19 - Discussed MRI results with orthopedics given finding of gas in the tissue. This was also seen on Xray on admission. Likely oxygen rather than production from anaerobe given large opening of the wound. MRI also showing osteomyelitis. Ortho will review MRI and give further recs if necessary. ID consulted (3) Right calf pain: Secondary to infection US venous doppler - no DVT Duplex doppler 05/16 without hemodynamically significant stenosis, biphasic and triphasic flow in the right lower extremity. Ankle to brachial indices wnl (4) CAD (coronary artery disease): Restarted ASA. Continue lisinopril, Restart atorvastatin 40mg PO daily (5) Acute hyperglycemia: Pharmacy glycemic managment (6) Diabetes mellitus: HbA1c 10.7 in January, now 12.5% On no insulin at home as he never refilled his discharge medications from his hospitalization in January/Feb and never got insurance or established with a PCP however was discharged on total 96 units/day. Pharmacy glycemic consult prosthodontist/educator (7) Acute hyponatremia: Resolved (8) Anemia: stable (9) DVT prophylaxis: Enoxaparin Admission and Anticipated Discharge Date Admission Date: May 16, 2020 Subjective Mr. Jean reports that his foot is hurting a bit more today. It is draining quite a bit of serosanguineous drainage. ROS Constitutional: no chills, aches, sweats or fever Respiratory: no sob,cough, sputum, or wheezing Cardiac: no chest pain, palpitations, edema, orthopnea or lightheadedness GI: no abdominal pain, nausea, vomiting, diarrhea or constipation : no dysuria or hesitancy Extremities: no joint pain or weakness Skin: no rash All other systems reviewed and negative Physical Exam Physical Exam: General: no distress Eyes: normal inspection, PERLL Respiratory: chest non tender, clear to auscultation, normal breath sounds, no respiratory distress, no accessory muscle use Cardiac: regular rate and rhythm, no rub or gallop, no murmur, no edema, no jvd GI/: active bowel sounds, no abd pain or tenderness, soft, non distended Extremities: normal range of motion, normal strength, non tender Neuro/Psych: alert and oriented x 3, normal mood and affect Skin: normal color, dry Results & Data Results & Data ([facility]) Vital Signs (Past 12 Hours) Vital Signs Temp Pulse Resp BP Pulse Ox 05/20/20 07:15 37.1 C 96 H 18 128/82 96 PG Care Time/CCT Total # of Minutes Spent Total Time Spent with Patient: Total time spent is greater than 50% in coordination of care (as documented) at patient's floor/unit and/or counseling patient: Coding Level of Care Code 48290 Subseq Hosp Care Lvl 2 Diagnoses Cellulitis of right lower leg L03.115 Diabetic foot ulcer E10.621; L97.419 Diabetes mellitus type: type 1 Diabetic foot ulcer location: heel Laterality: right Non-pressure ulcer stage: unspecified non-pressure ulcer stage Right calf pain M79.661 CAD (coronary artery disease) I25.10 Coronary Disease-Associated Artery/Lesion type: [place] artery [place] vs. transplanted heart: [place] heart Associated angina: without angina Acute hyperglycemia R73.9 Diabetes mellitus E11.9 Diabetes mellitus type: other specified (including TEVIN) Acute hyponatremia E87.1 Anemia D64.9 DVT prophylaxis Z29.9 (1) Diabetic foot ulcer Diabetes mellitus type: type 1 Diabetic foot ulcer location: heel Laterality: right Non-pressure ulcer stage: unspecified non-pressure ulcer stage Qualified Code(s): E10.621 - Type 1 diabetes mellitus with foot ulcer; L97.419 - Non-pressure chronic ulcer of right heel and midfoot with unspecified severity (2) CAD (coronary artery disease) Coronary Disease-Associated Artery/Lesion type: [place] artery [place] vs. transplanted heart: [place] heart Associated angina: without angina Qualified Code(s): I25.10 - Atherosclerotic heart disease of [place] coronary artery without angina pectoris (3) Diabetes mellitus Diabetes mellitus type: other specified (including TEVIN)
[2020-05-20] MEDS: INSULIN GLARGINE SOLOSTAR 100 UNITS/ML 3 ML PEN SC SCH (21:33)
[2020-05-20] MEDS: MELATONIN 3 MG TAB PO PRN (23:55)
[2020-05-21] MEDS: PIPERACILLIN/TAZOBACTAM 4.5 GM in DEXTROSE 5% 100 ML IV SCH ×3 (04:03→19:41)
[2020-05-21] MEDS: VANCOMYCIN HCL 1,250 MG in SODIUM CHLORIDE 0.9% 250 ML IV SCH ×3 (04:04→20:03)
--- NOTE | 2020-05-21 04:36 | Communication Note ---
Date of Service: May 21, 2020 Notified by nursing to pass on to day team that daughter Zhanna would like to be contacted and would like to discuss the MRI results at : [phone]. 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
[2020-05-21] MEDS: ACETAMINOPHEN 325 MG TAB PO PRN ×2 (04:42→14:06)
[2020-05-21 06:04] LABS: Hemoglobin 9.3 g/dL (14.0-18.0); Mean Corpuscular Hemoglobin 28.4 pg (25-34); Mean Corpuscular Hgb Conc 34.4 g/dL (32-36); Mean Corpuscular Volume 82.6 fL (80-100); Mean Platelet Volume 8.9 fL (7.4-10.4); Platelet Count 196 K/uL (130-400); RDW Coefficient of Variation 11.9 % (11.5-14.5); RDW Standard Deviation 35.6 fL (36.4-46.3); Red Blood Count 3.27 M/uL (4.7-6.1); White Blood Count 6.48 K/uL (4.8-10.8)
--- NOTE | 2020-05-21 06:19 | Electrocardiogram Report ---
Test Reason : Blood Pressure : / mmHG Vent. Rate : 082 BPM Atrial Rate : 082 BPM P-R Int : 140 ms QRS Dur : 090 ms QT Int : 368 ms P-R-T Axes : 034 000 006 degrees QTc Int : 429 ms Sinus rhythm with occasional Premature ventricular complexes and Premature atrial complexes Inferior infarct (cited on or before 12-JAN-2012) Abnormal ECG When compared with ECG of 16-MAY-2020 11:12, Premature ventricular complexes are now Present QT has shortened Confirmed by Brian Hsu ([id number]) on 05/21/2020 6:19:03 AM Referred By: REFERRED SELF Confirmed By:Brian Hsu
[2020-05-21 06:36] LABS: BUN Creatinine Ratio 12.5 (10-20); Creatinine Clr Calc Pharmacy 135.8 ml/min; Potassium 3.7 mmol/L (3.5-5.1)
[2020-05-21] MEDS: CLINDAMYCIN 600 MG in DEXTROSE 5% 50 ML IV SCH ×3 (08:07→23:32)
[2020-05-21] MEDS: ENOXAPARIN INJ 40 MG/0.4 ML SYR SQ SCH (08:08)
[2020-05-21] MEDS: ASPIRIN 81 MG ECTAB PO SCH (08:08)
[2020-05-21] MEDS: lisinopril 5 MG TAB PO SCH (08:08)
[2020-05-21] MEDS: ATORVASTATIN 40 MG TAB PO SCH (08:08)
[2020-05-21] MEDS: INSULIN ASPART 100 UNITS/ML 3 ML PEN SC SCH ×5 (09:32→20:48)
--- NOTE | 2020-05-21 11:20 | Hospitalist Progress Note ---
Date of Service May 21, 2020 Assessment & Plan (1) Cellulitis of right lower leg: Continue Zosyn, clinda, vanc (2) Diabetic foot ulcer: Debridement bedside 05/18 Ortho consulted - no need for urgent surgery, waiting to see if wound care alone can salvage leg BC - one vial growing gram positive cocci anaerobe, surface culture with alpha strep and gram negative anaerobe, wound culture from debridement pending 05/19 - Discussed MRI results with orthopedics given finding of gas in the tissue. This was also seen on Xray on admission. Likely oxygen rather than production from anaerobe given large opening of the wound. MRI also showing osteomyelitis. Continue with wound care debridements. ID consulted (3) Right calf pain: Secondary to infection US venous doppler - no DVT Duplex doppler 05/16 without hemodynamically significant stenosis, biphasic and triphasic flow in the right lower extremity. Ankle to brachial indices wnl (4) CAD (coronary artery disease): Restarted ASA. Continue lisinopril, Restart atorvastatin 40mg PO daily (5) Acute hyperglycemia: Pharmacy glycemic managment (6) Diabetes mellitus: HbA1c 10.7 in January, now 12.5% On no insulin at home as he never refilled his discharge medications from his hospitalization in January/Feb and never got insurance or established with a PCP however was discharged on total 96 units/day. Pharmacy glycemic consult clinical educator (7) Acute hyponatremia: Resolved (8) Anemia: stable (9) DVT prophylaxis: Enoxaparin Admission and Anticipated Discharge Date Admission Date: May 16, 2020 Subjective Mr. Jean has no complaints, pain is better today than yesterday. ROS Constitutional: no chills, aches, sweats or fever Respiratory: no sob,cough, sputum, or wheezing Cardiac: no chest pain, palpitations, edema, orthopnea or lightheadedness GI: no abdominal pain, nausea, vomiting, diarrhea or constipation : no dysuria or hesitancy Extremities: no joint pain or weakness Skin: no rash All other systems reviewed and negative Physical Exam Physical Exam: General: no distress Eyes: normal inspection, PERLL Respiratory: chest non tender, clear to auscultation, normal breath sounds, no respiratory distress, no accessory muscle use Cardiac: regular rate and rhythm, no rub or gallop, no murmur, no edema, no jvd GI/: active bowel sounds, no abd pain or tenderness, soft, non distended Extremities: normal range of motion, normal strength, non tender Neuro/Psych: alert and oriented x 3, normal mood and affect Skin: normal color, dry Results & Data Results & Data ([facility]) Vital Signs (Past 12 Hours) Vital Signs Temp Pulse Resp BP Pulse Ox 05/21/20 07:18 36.7 C 69 18 128/70 98 PG Care Time/CCT Total # of Minutes Spent Total Time Spent with Patient: Total time spent is greater than 50% in coordination of care (as documented) at patient's floor/unit and/or counseling patient: Coding Level of Care Code 69611 Subseq Hosp Care Lvl 2 Diagnoses Cellulitis of right lower leg L03.115 Diabetic foot ulcer E10.621; L97.419 Diabetes mellitus type: type 1 Diabetic foot ulcer location: heel Laterality: right Non-pressure ulcer stage: unspecified non-pressure ulcer stage Right calf pain M79.661 CAD (coronary artery disease) I25.10 Coronary Disease-Associated Artery/Lesion type: [place] artery [place] vs. transplanted heart: [place] heart Associated angina: without angina Acute hyperglycemia R73.9 Diabetes mellitus E11.9 Diabetes mellitus type: other specified (including [place]) Acute hyponatremia E87.1 Anemia D64.9 DVT prophylaxis Z29.9 (1) Diabetic foot ulcer Diabetes mellitus type: type 1 Diabetic foot ulcer location: heel Laterality: right Non-pressure ulcer stage: unspecified non-pressure ulcer stage Qualified Code(s): E10.621 - Type 1 diabetes mellitus with foot ulcer; L97.419 - Non-pressure chronic ulcer of right heel and midfoot with unspecified severity (2) CAD (coronary artery disease) Coronary Disease-Associated Artery/Lesion type: [place] artery [place] vs. transplanted heart: [place] heart Associated angina: without angina Qualified Code(s): I25.10 - Atherosclerotic heart disease of [place] coronary artery without angina pectoris (3) Diabetes mellitus Diabetes mellitus type: other specified (including TEVIN)
[2020-05-21] MEDS ORDERED: hydrOXYzine HCl 25 MG TAB PO PRN (12:11)
--- NOTE | 2020-05-21 15:16 | Pharmacy Report ---
Pharmacy Glycemic Short Note 2 - Date of Service May 21, 2020 - Glycemic Short BSG Results (Last 24 hours): 05/20/20 05/20/20 05/21/20 17:04 20:53 05:45 Glucose 116 H POC Glucose 170 H 206 H 05/21/20 05/21/20 07:58 11:59 Glucose POC Glucose 116 H 154 H OUTPATIENT ANTIDIABETIC REGIMEN: * n/a - Pt did not fill insulin Rx from admission * A1c = 10.7% in January 2020; now up to 12.5% 05/17/20 ASSESSMENT: * 64yo T2DM male admitted with foot ulcer and cellulitis secondary to uncontrolled DM. * Currently receiving vancomycin, piperacillin/tazobactam, and clindamycin IV * Patient has received 107 units of insulin over the past 24hrs * 30 units of basal insulin with Lantus * 77 units of bolus with NovoLog * BSGs: 117, 193, 170, 206 mg/dL * Fasting BSG of 116 mg/dL this morning - no change to Lantus order * Post prandial BSGs consistently elevated. Will tighten carb coverage. PLAN FOR INPATIENT GLYCEMIC CONTROL: * Basal insulin: no change * Lantus 30 units SQ HS * Bolus insulin: tighten carb ratio * NovoLog per scale ACHS or Q6hrs while NPO * Goal Range: Low 110 mg/dL - High 140 mg/dL * Correction Factor: 12 mg/dL/unit * Nutritional / Prandial insulin per carb ratio of 1 unit per 3.5 grams CHO consumed PLAN FOR DISCHARGE: * A1c = 12.5 % on 05/17/20 * Goal A1c = <7 % based on age and comorbidities * A1c is greater than or equal to 10% consider triple therapy with metformin + basal insulin + (GLP1-RA OR prandial insulin). * Metformin should be started at the time type 2 diabetes is diagnosed unless there are contraindications. Metformin is effective and safe, is inexpensive, and may reduce risk of cardiovascular events and . 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 Typically the XR formulation of metformin is better tolerated than the immediate release formulation. Continue to titrate metformin dosing upwards as recommended. Dosage increases should be made in increments of 500 mg weekly, up to 2,000 mg/day PO, given in divided doses. Doses above 2000 mg/day may be better tolerated if divided and given 3 times per day with meals. Max: 2,550 mg/day PO, in divided doses * Insulin regimen will depend on insurance coverage. * Could consider NPH + Regular insulin or pre-mixed NPH/Regular 70/30 insulin if cost is an issue. Total daily dose ~ 60-70 units/day but will update this closer to discharge. * If cost is not an issue, recommend glargine + NovoLog; Total daily dose ~ 60-70 units/day but will update this closer to discharge. * Support Patient Self-Management * Healthy Lifestyle (diet, exercise, and smoking cessation) * Disease self-management (SMBG) * Prevention of complications (BP, Lipid goals, Immunizations) * Consider outpatient Diabetes Self-Management Education & Support *
[2020-05-21] MEDS: GABAPENTIN 100 MG CAP PO SCH (20:09)
[2020-05-21] MEDS: INSULIN GLARGINE SOLOSTAR 100 UNITS/ML 3 ML PEN SC SCH (20:47)
[2020-05-22] MEDS: HYDROCODONE/ACETAMOPHEN 5/325MG TAB PO PRN ×3 (03:27→23:30)
[2020-05-22] MEDS: PIPERACILLIN/TAZOBACTAM 4.5 GM in DEXTROSE 5% 100 ML IV SCH ×3 (03:27→20:17)
[2020-05-22] MEDS ORDERED: VANCOMYCIN TROUGH ONE (04:30)
[2020-05-22 04:55] LABS: Hematocrit (blood only) 28.9 % (42-52); Hemoglobin 9.8 g/dL (14.0-18.0); Mean Corpuscular Hemoglobin 28.2 pg (25-34); Mean Corpuscular Hgb Conc 33.9 g/dL (32-36); Mean Platelet Volume 8.9 fL (7.4-10.4); Platelet Count 234 K/uL (130-400); RDW Coefficient of Variation 12.1 % (11.5-14.5); RDW Standard Deviation 36.6 fL (36.4-46.3); Red Blood Count 3.48 M/uL (4.7-6.1); White Blood Count 6.06 K/uL (4.8-10.8)
[2020-05-22 05:24] LABS: BUN Creatinine Ratio 14.8 (10-20); Calcium 8.2 mg/dl (8.5-10.1); Creatinine Clr Calc Pharmacy 98.2 ml/min; Est GFR (African American) 108.5; Est GFR (Non-African American) 93.6; Potassium 3.9 mmol/L (3.5-5.1)
[2020-05-22] MEDS: VANCOMYCIN HCL 1,250 MG in SODIUM CHLORIDE 0.9% 250 ML IV SCH ×3 (05:47→21:05)
--- NOTE | 2020-05-22 07:38 | Pharmacy Report ---
Pharmacy Abx Dose Short Note - Date of Service May 22, 2020 - Assessment & Plan Assessment * 64 year old M receiving VANCOMYCIN + ZOSYN + CLINDAMYCIN for treatment of diabetic foot ulcer, osteomyelitis posterior calcaneus, possible necrotizing fasciitis * Pharmacy has been consulted to dose vancomycin + Zosyn * Day # 7 antibiotic therapy * Bedside debridement x 1 performed on 05/18 * ID has been consulted however no recs yet on chart * BLCX: anaerococcus prevotii * Wound debridement cx: anaerococcus prevotii, alpha-strep (not enterococcus), prevotella bivia, bacteroides pyogenes * Renal fxn appears stable. SCr did increase from 0.6 to 0.83 in last 24 hrs, however UOP actually increased. Will recheck SCr tomorrow AM. Plan Vancomycin * Trough level of 18.4 mcg/mL is therapeutic. This level was drawn at the appropriate time. Prior doses were hung on time. * Continue dose of 1250 mg IV every 8 hours * Goal trough level for osteomyelitis: 15 to 20 mcg/mL * Will recheck trough again in ~3 days if therapy to continue Zosyn * eCrCl > 20, continue 4.5gm ext-infusion Q 8 hrs given osteomyelitis and given potentially limb threatening infxn Pharmacy will continue to follow and will adjust dose/frequency as necessary. Thank you.
[2020-05-22] MEDS: INSULIN ASPART 100 UNITS/ML 3 ML PEN SC SCH ×4 (08:40→21:09)
--- NOTE | 2020-05-22 08:40 | Pharmacy Report ---
Pharmacy Glycemic Short Note 2 - Date of Service May 22, 2020 - Glycemic Short BSG Results (Last 24 hours): 05/21/20 05/21/20 05/21/20 11:59 17:04 20:30 Glucose POC Glucose 154 H 82 142 H 05/22/20 05/22/20 04:27 08:10 Glucose 225 H POC Glucose 227 H OUTPATIENT ANTIDIABETIC REGIMEN: * n/a - Pt did not fill insulin Rx from January/Feb admission * A1c = 10.7% in January 2020; now up to 12.5% 05/17/20 ASSESSMENT: 05/23 * 112 units SQ insulin given over last 24 hrs while tolerating a diet * Fasting BSG elevated this AM, FBS = 227, w/ 30 units Lantus on board. This is a clear change for him. The same basal dose had produced fasting BSGs 80-110s the last several days. Will not react to this single elevation, rather will reevaluate basal needs tomorrow AM. Of note, nursing documentation notes new onset R calf pain last evening along w/ flushing, chills and elevated temp. * Post-prandial BSGs well controlled w/ current CF/CR - no changes at this time. PLAN FOR INPATIENT GLYCEMIC CONTROL: * Basal insulin: no change * Lantus 30 units SQ HS * Bolus insulin: no change * NovoLog per scale ACHS or Q6hrs while NPO * Goal Range: Low 110 mg/dL - High 140 mg/dL * Correction Factor: 12 mg/dL/unit * Nutritional / Prandial insulin per carb ratio of 1 unit per 3.5 grams CHO consumed PLAN FOR DISCHARGE: * A1c = 12.5 % on 05/17/20 * Goal A1c = <7 % based on age and comorbidities * A1c is greater than or equal to 10% consider triple therapy with metformin + basal insulin + (GLP1-RA OR prandial insulin). * Metformin should be started at the time type 2 diabetes is diagnosed unless there are contraindications. Metformin is effective and safe, is inexpensive, and may reduce risk of cardiovascular events and . * B12 supplementation may be necessary with intermediate card tender metformin use * Metformin XR 500mg PO daily with evening meal. Typically the XR formulation of metformin is better tolerated than the immediate release formulation. C ontinue to titrate metformin dosing upwards as recommended. Dosage increases should be made in increments of 500 mg weekly, up to 2,000 mg/day PO, given in divided doses. Doses above 2000 mg/day may be better tolerated if divided and given 3 times per day with meals. Max: 2,550 mg/day PO, in divided doses * Insulin regimen will depend on insurance coverage. * Could consider NPH + Regular insulin or pre-mixed NPH/Regular 70/30 insulin if cost is an issue. Total daily dose ~ 70-80 units/day when not acutely ill, but will update this closer to discharge. * If cost is not an issue, recommend glargine + NovoLog; Total daily dose ~ 70-80 units/day when not acutely ill, but will update this closer to discharge. * Support Patient Self-Management * Healthy Lifestyle (diet, exercise, and smoking cessation) * Disease self-management (SMBG) * Prevention of complications (BP, Lipid goals, Immunizations) * Consider outpatient Diabetes Self-Management Education & Support *
[2020-05-22] MEDS: ENOXAPARIN INJ 40 MG/0.4 ML SYR SQ SCH (08:41)
[2020-05-22] MEDS: ASPIRIN 81 MG ECTAB PO SCH (08:41)
[2020-05-22] MEDS: lisinopril 5 MG TAB PO SCH (08:41)
[2020-05-22] MEDS: ATORVASTATIN 40 MG TAB PO SCH (08:41)
[2020-05-22] MEDS: GABAPENTIN 100 MG CAP PO SCH ×3 (08:41→21:08)
[2020-05-22] MEDS: CLINDAMYCIN 600 MG in DEXTROSE 5% 50 ML IV SCH ×3 (08:44→23:31)
--- NOTE | 2020-05-22 10:34 | Hospitalist Progress Note ---
Date of Service May 22, 2020 Assessment & Plan (1) Cellulitis of right lower leg: * Ulcer to R heel * MRI with concerns for osteo and ortho consulted -- felt gas likely oxygen rather than from anaerobe given large opening of wound * Continue Zosyn, clinda, vanco (trough therapeutic) * ID consult pending (2) Diabetic foot ulcer: * Debridement bedside 05/18 * Ortho consulted - no need for urgent surgery, waiting to see if wound care alone can salvage leg * BCx - 1/2 growing gram positive cocci anaerobe, surface culture with alpha strep and gram negative anaerobe, wound culture from debridement pending * Foot culture with alpha strep not enterococcus, prevotella bibia, bacteroides pyogenes, anaerococcus prevotii. Repeat culture with low counts probable mixed skin felicia * 05/19 - Discussed MRI results with orthopedics given finding of gas in the tissue. This was also seen on Xray on admission. Likely oxygen rather than production from anaerobe given large opening of the wound. MRI also showing osteomyelitis. Continue with wound care debridement. * ID consult pending -- appreciate recommendations * Will need follow up with wound care/possible wound vac at d/c (3) Right calf pain: * Secondary to infection * US venous doppler - no DVT * Duplex doppler 05/16 without hemodynamically significant stenosis, biphasic and triphasic flow in the right lower extremity. Ankle to brachial indices wnl * Oxy increased to 2 tabs prn severe pain (4) CAD (coronary artery disease): * Restarted ASA. * Continue lisinopril, * Restart atorvastatin 40mg PO daily * Not on BB?? (5) Acute hyperglycemia: * Pharmacy glycemic management (6) Diabetes mellitus: * HbA1c 10.7 in January, now 12.5% * On no insulin at home as he never refilled his discharge medications from his hospitalization in January/Feb and never got insurance or established with a PCP however was discharged on total 96 units/day. 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 [facility] at discharge planned Admission and Anticipated Discharge Date Admission Date: May 16, 2020 Subjective Patient evaluated this morning. Awaiting ID consultation later this morning at 11am. Pain controlled at this time but current ordered medications not as effective as they should be and we discussed increasing dose to 2 tablets as needed for severe pain. He is determined to get sugars controlled as he ran out of insulin and had not been taking. New insurance to start at the beginning of the year. Foot looking a lot better than in days past. Eating/drinking without difficulty. No fever, chills, chest pain, shortness of breath, abdominal pain, nausea, vomiting or dysuria at this time. Review of Systems Review of Systems: All systems reviewed & are unremarkable except as noted in HPI & below Physical Exam Constitutional: WD/WN, vitals as above + well hydrated; no acute distress Eyes: PERRL, conjunctivae normal, anicteric sclerae ENMT: mmm Neck: trachea midline, no thyromegaly normal visual inspection Respiratory: normal respiratory effort, lungs clear to auscultation no respiratory distress and no labored breathing Auscultation: no crackles and no wheezes Cardiovascular: RRR, no murmur, no edema Extremities: normal capillary refill; no edema Chest (Breasts): Additional Comments: 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) Gastrointestinal (Abdomen): normal bowel sounds, soft, nontender, no hepatosplenomegaly Musculoskeletal: no cyanosis or clubbing, extremities motor strength 5/5 Skin: 2cm ulceration to R heel -- non-tender to palpation dressing c/d/i with scant yellow drainage noted Neurologic: moves all extremities and awake; not confused Motor/Sensory: + sensory deficit (below knee chronic peripheral neuropathy b/l) Psychiatric: A+Ox3, euthymic affect Orientation: alert and oriented x 3 Results & Data Results & Data ([facility]) Vital Signs (Past 12 Hours) Vital Signs Temp Pulse Resp BP Pulse Ox 05/22/20 06:59 36.6 C 77 18 162/76 H 98 05/22/20 03:56 36.9 C 05/21/20 23:11 37.8 C H 93 H 18 148/82 H 94 Laboratory Results 05/22/20 05/22/20 05/22/20 Range/Units 08:10 04:27 04:27 WBC (4.8-10.8) K/uL RBC (4.7-6.1) M/uL Hgb (14.0-18.0) g/dL Hct (42-52) % MCV (80-100) fL MCH (25-34) pg MCHC (32-36) g/dL RDW Std Deviation (36.4-46.3) fL RDW Coeff of Mau (11.5-14.5) % Plt Count (130-400) K/uL MPV (7.4-10.4) fL Sodium 132 L (136-145) mmol/L Potassium 3.9 (3.5-5.1) mmol/L Chloride 103 (98-107) mmol/L Carbon Dioxide 27 (21-32) mmol/L Anion Gap 2.0 L (3-11) BUN 12 (7-18) mg/dl Creatinine 0.83 (0.6-1.4) mg/dl Est Cr Clr Drug Dosing 98.2 ml/min Est GFR ( Amer) 108.5 Est GFR (Non-Af Amer) 93.6 BUN/Creatinine Ratio 14.8 (10-20) Glucose 225 H (70-99) mg/dl POC Glucose 227 H (70-99) mg/dl Calcium 8.2 L (8.5-10.1) mg/dl Vancomycin Trough 18.4 (See Comment) mcg/ml 05/22/20 05/21/20 05/21/20 Range/Units 04:21 20:30 17:04 WBC 6.06 (4.8-10.8) K/uL RBC 3.48 L (4.7-6.1) M/uL Hgb 9.8 L (14.0-18.0) g/dL Hct 28.9 L (42-52) % MCV 83.0 (80-100) fL MCH 28.2 (25-34) pg MCHC 33.9 (32-36) g/dL RDW Std Deviation 36.6 (36.4-46.3) fL RDW Coeff of Mau 12.1 (11.5-14.5) % Plt Count 234 (130-400) K/uL MPV 8.9 (7.4-10.4) fL Sodium (136-145) mmol/L Potassium (3.5-5.1) mmol/L Chloride (98-107) mmol/L Carbon Dioxide (21-32) mmol/L Anion Gap (3-11) BUN (7-18) mg/dl Creatinine (0.6-1.4) mg/dl Est Cr Clr Drug Dosing ml/min Est GFR ( Amer) Est GFR (Non-Af Amer) BUN/Creatinine Ratio (10-20) Glucose (70-99) mg/dl POC Glucose 142 H 82 (70-99) mg/dl Calcium (8.5-10.1) mg/dl Vancomycin Trough (See Comment) mcg/ml PG Care Time/CCT Total # of Minutes Spent Total Time Spent with Patient: Total time spent is greater than 50% in coordination of care (as documented) at patient's floor/unit and/or counseling patient: Coding Level of Care Code 11876 Subseq Hosp Care Lvl 2 Diagnoses Cellulitis of right lower leg L03.115 Diabetic foot ulcer E10.621; L97.419 Diabetes mellitus type: type 1 Diabetic foot ulcer location: heel Laterality: right Non-pressure ulcer stage: unspecified non-pressure ulcer stage Right calf pain M79.661 CAD (coronary artery disease) I25.10 Coronary Disease-Associated Artery/Lesion type: [place] artery [place] vs. transplanted heart: [place] heart Associated angina: without angina Acute hyperglycemia R73.9 Diabetes mellitus E11.9 Diabetes mellitus type: other specified (including TEVIN) Acute hyponatremia E87.1 Anemia D64.9 DVT prophylaxis Z29.9 (1) Diabetic foot ulcer Diabetes mellitus type: type 1 Diabetic foot ulcer location: heel Laterality: right Non-pressure ulcer stage: unspecified non-pressure ulcer stage Qualified Code(s): E10.621 - Type 1 diabetes mellitus with foot ulcer; L97.419 - Non-pressure chronic ulcer of right heel and midfoot with unspecified severity (2) CAD (coronary artery disease) Coronary Disease-Associated Artery/Lesion type: [place] artery [place] vs. transplanted heart: [place] heart Associated angina: without angina Qualified Code(s): I25.10 - Atherosclerotic heart disease of [place] coronary artery without angina pectoris (3) Diabetes mellitus Diabetes mellitus type: other specified (including TEVIN)
[2020-05-22] MEDS: INSULIN GLARGINE SOLOSTAR 100 UNITS/ML 3 ML PEN SC SCH (21:10)
[2020-05-23] MEDS: VANCOMYCIN HCL 1,250 MG in SODIUM CHLORIDE 0.9% 250 ML IV SCH ×2 (05:20→12:37)
[2020-05-23] MEDS: PIPERACILLIN/TAZOBACTAM 4.5 GM in DEXTROSE 5% 100 ML IV SCH ×3 (05:20→20:04)
[2020-05-23 06:34] LABS: Hematocrit (blood only) 29.2 % (42-52); Hemoglobin 9.6 g/dL (14.0-18.0); Mean Corpuscular Hgb Conc 32.9 g/dL (32-36); Mean Corpuscular Volume 85.1 fL (80-100); Mean Platelet Volume 8.6 fL (7.4-10.4); Platelet Count 275 K/uL (130-400); RDW Coefficient of Variation 12.3 % (11.5-14.5); RDW Standard Deviation 38.1 fL (36.4-46.3); Red Blood Count 3.43 M/uL (4.7-6.1); White Blood Count 5.73 K/uL (4.8-10.8)
[2020-05-23] MEDS: HYDROCODONE/ACETAMOPHEN 5/325MG TAB PO PRN ×3 (07:04→16:54)
[2020-05-23 07:11] LABS: BUN Creatinine Ratio 12.5 (10-20); C Reactive Protein 7.39 mg/dl (0-0.29); Calcium 8.7 mg/dl (8.5-10.1); Creatinine Clr Calc Pharmacy 92.6 ml/min; Est GFR (Non-African American) 91.4; Potassium 3.7 mmol/L (3.5-5.1)
[2020-05-23] MEDS ORDERED: INSULIN GLARGINE SOLOSTAR 100 UNITS/ML 3 ML PEN SC ONE (09:00)
[2020-05-23] MEDS: lisinopril 5 MG TAB PO SCH (09:07)
[2020-05-23] MEDS: ATORVASTATIN 40 MG TAB PO SCH (09:07)
[2020-05-23] MEDS: GABAPENTIN 100 MG CAP PO SCH ×3 (09:08→20:04)
[2020-05-23] MEDS: ENOXAPARIN INJ 40 MG/0.4 ML SYR SQ SCH (09:08)
[2020-05-23] MEDS: ASPIRIN 81 MG ECTAB PO SCH (09:08)
[2020-05-23] MEDS: INSULIN ASPART 100 UNITS/ML 3 ML PEN SC SCH ×4 (09:11→21:13)
[2020-05-23] MEDS: CLINDAMYCIN 600 MG in DEXTROSE 5% 50 ML IV SCH ×2 (09:17→16:54)
--- NOTE | 2020-05-23 09:59 | Orthopedic Progress Note ---
Date of Service May 23, 2020 Assessment & Plan (1) Cellulitis of left lower leg: (2) Diabetic foot ulcer: Recommend continuing nonoperative care. I spent 10 minutes discussing option for below knee amputation for definitive treatment of significant heel wound. I described updates in prosthetics, advantages and risks. Remains adament that he does not want a BKA at this time. He can contact me for any further discussion. Appreciate wound care. Based on appearance of the wound at last week's debridement and updated MRI, I would recommend proceeding with VAC therapy, per the wound care teams discretion. Present on Admission?: Yes Admission and Anticipated Discharge Date Admission Date: May 16, 2020 Subjective Reports that he 'feels better than I have in a long time.' Denies calf pain today and demonstrates painfree ROM. Wound care eval set for later this morning. Review of Systems Review of Systems: All systems reviewed & are unremarkable except as noted in HPI & below Physical Exam Physical Exam: RLE: offload waffle boot in place. No tenderness along achillles into calf. +PF/DF without pain. Able to flex/ex toes. Constitutional: well developed and well nourished; no acute distress and not intoxicated appearing Respiratory: normal respiratory effort; no respiratory distress Cardiovascular: Extremities: normal capillary refill; no edema Skin: no rashes, warm and dry Psychiatric: A+Ox3, euthymic affect Results & Data ([facility]) Vital Signs (Past 12 Hours) Vital Signs Temp Pulse Resp BP Pulse Ox 05/23/20 08:03 36.9 C 85 18 144/78 H 95 05/22/20 23:40 36.5 C 90 16 160/68 H 96 MRI ankle: reviewed. Edema throughout calcaneous with linear area that may represent stress fracture. Significant soft tissue deficit and open wound that communicates with free air. No abscesses or other indications of need for surgical debridement. PG Care Time/CCT Total # of Minutes Spent Total Time Spent with Patient: Total time spent is greater than 50% in coordination of care (as documented) at patient's floor/unit and/or counseling patient: Coding Level of Care Code 27299 Inpt Consult Level 3 Diagnoses Cellulitis of left lower leg L03.116 Diabetic foot ulcer E10.621; L97.419 Diabetes mellitus type: type 1 Diabetic foot ulcer location: heel Laterality: right Non-pressure ulcer stage: unspecified non-pressure ulcer stage (1) Diabetic foot ulcer Diabetes mellitus type: type 1 Diabetic foot ulcer location: heel Laterality: right Non-pressure ulcer stage: unspecified non-pressure ulcer stage Qualified Code(s): E10.621 - Type 1 diabetes mellitus with foot ulcer; L97.419 - Non-pressure chronic ulcer of right heel and midfoot with unspecified severity
--- NOTE | 2020-05-23 12:58 | Pharmacy Report ---
Pharmacy Glycemic Short Note 2 - Date of Service May 23, 2020 - Glycemic Short BSG Results (Last 24 hours): 05/22/20 05/22/20 05/23/20 17:19 20:36 06:05 Glucose 235 H POC Glucose 177 H 135 H 05/23/20 05/23/20 07:59 12:14 Glucose POC Glucose 202 H 274 H OUTPATIENT ANTIDIABETIC REGIMEN: * n/a - Pt did not fill insulin Rx from admission * A1c = 10.7% in January 2020; now up to 12.5% 05/17/20 ASSESSMENT: 05/24 * 111 units SQ insulin given over the last 24 hours * Fasting BSG this morning elevated again this morning, regimen is heavily bolus weighted, will give additional 10 units of lantus this AM and reassess fasting in AM. Patient was on NPH 30 units with breakfast and 25 units with dinner during previous admission in January * Lunch BSG elevated, however breakfast insulin given later in the morning therefore will not react to this BSG. 05/23 * 112 units SQ insulin given over last 24 hrs while tolerating a diet * Fasting BSG elevated this AM, FBS = 227, w/ 30 units Lantus on board. This is a clear change for him. The same basal dose had produced fasting BSGs 80-110s the last several days. Will not react to this single elevation, rather will reevaluate basal needs tomorrow AM. Of note, nursing documentation notes new onset R calf pain last evening along w/ flushing, chills and elevated temp. * Post-prandial BSGs well controlled w/ current CF/CR - no changes at this time. PLAN FOR INPATIENT GLYCEMIC CONTROL: * Basal insulin: increase * Lantus 30 units SQ HS, lantus 10 units x 1 this AM * Bolus insulin: no change * NovoLog per scale ACHS or Q6hrs while NPO * Goal Range: Low 110 mg/dL - High 140 mg/dL * Correction Factor: 12 mg/dL/unit * Nutritional / Prandial insulin per carb ratio of 1 unit per 3.5 grams CHO consumed PLAN FOR DISCHARGE: * A1c = 12.5 % on 05/17/20 * Goal A1c = <7 % based on age and comorbidities * A1c is greater than or equal to 10% consider triple therapy with metformin + basal insulin + (GLP1-RA OR prandial insulin). * Metformin should be started at the time type 2 diabetes is diagnosed unless there are contraindications. Metformin is effective and safe, is inexpensive, and may reduce risk of cardiovascular events and . * B12 supplementation may be necessary with half-way metformin use * Metformin XR 500mg PO daily with evening meal. Typically the XR formulation of metformin is better tolerated than the immediate release formulation. Continue to titrate metformin dosing upwards as recommended. Dosage increases should be made in increments of 500 mg weekly, up to 2,000 mg/day PO, given in divided doses. Doses above 2000 mg/day may be better tolerated if divided and given 3 times per day with meals. Max: 2,550 mg/day PO, in divided doses * Insulin regimen will depend on insurance coverage. * Could consider NPH + Regular insulin or pre-mixed NPH/Regular 70/30 insulin if cost is an issue. Total daily dose ~ 70-80 units/day when not acutely ill, but will update this closer to discharge. * If cost is not an issue, recommend glargine + NovoLog; Total daily dose ~ 70-80 units/day when not acutely ill, but will update this closer to discharge. * Support Patient Self-Management * Healthy Lifestyle (diet, exercise, and smoking cessation) * Disease self-management (SMBG) * Prevention of complications (BP, Lipid goals, Immunizations) * Consider outpatient Diabetes Self-Management Education & Support *
--- NOTE | 2020-05-23 13:21 | Hospitalist Progress Note ---
Date of Service May 23, 2020 Assessment & Plan (1) Osteomyelitis: From diabetic foot ulcer present since April * Debridement bedside 05/18 * Ortho consulted - no need for urgent surgery, waiting to see if wound care alone can salvage leg * BCx 1/2 growing gram positive cocci anaerobe, surface culture with alpha strep and gram negative anaerobe, wound culture from debridement pending * Foot culture with alpha strep not enterococcus, Prevotella bivia, bacteroides pyogenes, Anaerococcus prevotii. * Repeat culture with low counts probable mixed skin felicia * MRI results discussed with orthopedics, given finding of gas in the tissue. This was also seen on Xray on admission. Likely oxygen rather than production from anaerobe given large opening of the wound. MRI also showing osteomyelitis. Continue wound care debridement. * ID consult pending -- appreciate recommendations. Will continue current abx for now. * ECHO pending to r/o vegetations -- if negative can d/c Vancomycin * Clindamycin to be determined based on source control * Will need 6 weeks Zosyn IV if able to discontinue above. Will need weekly labs while on Zosyn * Inflammatory markers still elevated but trending down. * --> CRP 7.3 from 33 and ESR 66 from >90 Will need follow up with wound care/ wound vac at d/c as we are not proceeding with amputation -- to be placed this afternoon by wound provider (2) Cellulitis of right lower leg: * Ulcer to R heel * MRI with concerns for osteo and ortho consulted -- felt gas likely oxygen rather than from anaerobe given large opening of wound * Continue Zosyn, clinda, vanco (trough therapeutic) * ID consult as above (3) Diabetic foot ulcer: * As above (4) Right calf pain: * Secondary to infection * US venous Doppler - no DVT * Duplex Doppler 05/16 without hemodynamically significant stenosis, biphasic and triphasic flow in the right lower extremity. Ankle to brachial indices wnl * Oxy increased to 2 tabs prn severe pain with ZERO pain reported with this change. Will continue (5) CAD (coronary artery disease): * Restarted ASA. * Continue lisinopril * Restart atorvastatin 40mg PO daily * Not on BB?? (6) Acute hyperglycemia: * Pharmacy glycemic management (7) Diabetes mellitus: * HbA1c 10.7 in January, now 12.5% * On no insulin at home as he never refilled his discharge medications from his hospitalization in January/Feb and never got insurance or established with a PCP however was discharged on total 96 units/day. * Pharmacy glycemic consult * baling machine tender * Will need Metformin XR 500mg, insulin at discharge * [facility] with assistance program and patient to have new insurance start at beginning of the year (8) Acute hyponatremia: * Na 135 (9) Anemia: * h/h stable (10) DVT prophylaxis: * Enoxaparin Dispo:continued inpatient stay. Plans for [facility] at discharge Woundvac to be applied this afternoon. Admission and Anticipated Discharge Date Admission Date: May 16, 2020 Subjective Patient evaluated this morning alongside wound RN to examine R heel wound. Patient states his pain is much better controlled today, currently with zero pain although when his calf gets tight he knows it's time to get something for pain before it gets bad. Eating/drinking without difficulty. Moving bowels. No fever, chills, chest pain, shortness of breath, abdominal pain, nausea or vomiting. Discussed ID recommendations and we will order TTE prior to discontinuing V ancomycin but therapy likely to be for 6 weeks duration. Will continue current regimen. Patient very motivated to get diabetes under control and do anything needed to ensure healing and prevention in the future. Adamantly would like to avoid amputation at this time although we did discuss if current measures are unsuccessful that may be course in the future. Wound team to come back later today for wound vac application. Review of Systems Review of Systems: All systems reviewed & are unremarkable except as noted in HPI & below Physical Exam Constitutional: WD/WN, vitals as above + well hydrated; no acute distress Eyes: PERRL, conjunctivae normal, anicteric sclerae ENMT: mmm Neck: trachea midline, no thyromegaly normal visual inspection Respiratory: normal respiratory effort, lungs clear to auscultation no respiratory distress and no labored breathing Auscultation: no crackles and no wheezes Cardiovascular: RRR, no murmur, no edema Extremities: normal capillary re fill; no edema Gastrointestinal (Abdomen): normal bowel sounds, soft, nontender, no hepatosplenomegaly Musculoskeletal: Head/Neck/Chest: normocephalic and head atraumatic increased ROM to R ankle Skin: ulceration to R heel approx 8x6x1 with granulation tissue present. drainage noted. non-tender to palpation pulses weak but palpable cleaned by wound RN during encounter sensation intact, minimally decreased with light touch Neurologic: moves all extremities and awake; not confused Psychiatric: A+Ox3, euthymic affect Results & Data Results & Data ([facility]) Vital Signs (Past 12 Hours) Vital Signs Temp Pulse Resp BP Pulse Ox 05/23/20 08:03 36.9 C 85 18 144/78 H 95 Laboratory Results 05/23/20 05/23/20 05/23/20 Range/Units 12:14 07:59 06:05 WBC (4.8-10.8) K/uL RBC (4.7-6.1) M/uL Hgb (14.0-18.0) g/dL Hct (42-52) % MCV (80-100) fL MCH (25-34) pg MCHC (32-36) g/dL RDW Std Deviation (36.4-46.3) fL RDW Coeff of Mau (11.5-14.5) % Plt Count (130-400) K/uL MPV (7.4-10.4) fL ESR 66 H (0-14) mm/hr Sodium (136-145) mmol/L Potassium (3.5-5.1) mmol/L Chloride (98-107) mmol/L Carbon Dioxide (21-32) mmol/L Anion Gap (3-11) BUN (7-18) mg/dl Creatinine (0.6-1.4) mg/dl Est Cr Clr Drug Dosing ml/min Est GFR ( Amer) Est GFR (Non-Af Amer) BUN/Creatinine Ratio (10-20) Glucose (70-99) mg/dl POC Glucose 274 H 202 H (70-99) mg/dl Calcium (8.5-10.1) mg/dl C-Reactive Protein (0-0.29) mg/dl 05/23/20 05/23/20 05/22/20 Range/Units 06:05 06:05 20:36 WBC 5.73 (4.8-10.8) K/uL RBC 3.43 L (4.7-6.1) M/uL Hgb 9.6 L (14.0-18.0) g/dL Hct 29.2 L (42-52) % MCV 85.1 (80-100) fL MCH 28.0 (25-34) pg MCHC 32.9 (32-36) g/dL RDW Std Deviation 38.1 (36.4-46.3) fL RDW Coeff of Mau 12.3 (11.5-14.5) % Plt Count 275 (130-400) K/uL MPV 8.6 (7.4-10.4) fL ESR (0-14) mm/hr Sodium 135 L (136-145) mmol/L Potassium 3.7 (3.5-5.1) mmol/L Chloride 101 (98-107) mmol/L Carbon Dioxide 28 (21-32) mmol/L Anion Gap 5.0 (3-11) BUN 11 (7-18) mg/dl Creatinine 0.88 (0.6-1.4) mg/dl Est Cr Clr Drug Dosing 92.6 ml/min Est GFR ( Amer) 106.0 Est GFR (Non-Af Amer) 91.4 BUN/Creatinine Ratio 12.5 (10-20) Glucose 235 H (70-99) mg/dl POC Glucose 135 H (70-99) mg/dl Calcium 8.7 (8.5-10.1) mg/dl C-Reactive Protein 7.39 H (0-0.29) mg/dl // Range/Units 17:19 WBC (4.8-10.8) K/uL RBC (4.7-6.1) M/uL Hgb (14.0-18.0) g/dL Hct (42-52) % MCV (80-100) fL MCH (25-34) pg MCHC (32-36) g/dL RDW Std Deviation (36.4-46.3) fL RDW Coeff of Mau (11.5-14.5) % Plt Count (130-400) K/uL MPV (7.4-10.4) fL ESR (0-14) mm/hr Sodium (136-145) mmol/L Potassium (3.5-5.1) mmol/L Chloride (98-107) mmol/L Carbon Dioxide (21-32) mmol/L Anion Gap (3-11) BUN (7-18) mg/dl Creatinine (0.6-1.4) mg/dl Est Cr Clr Drug Dosing ml/min Est GFR ( Amer) Est GFR (Non-Af Amer) BUN/Creatinine Ratio (10-20) Glucose (70-99) mg/dl POC Glucose 177 H (70-99) mg/dl Calcium (8.5-10.1) mg/dl C-Reactive Protein (0-0.29) mg/dl PG Care Time/CCT Total # of Minutes Spent Total Time Spent with Patient: Total time spent is greater than 50% in coordination of care (as documented) at patient's floor/unit and/or counseling patient: Coding Level of Care Code 88363 Subseq Hosp Care Lvl 2 Diagnoses Osteomyelitis M86.9 Cellulitis of right lower leg L03.115 Diabetic foot ulcer E10.621; L97.419 Diabetes mellitus type: type 1 Diabetic foot ulcer location: heel Laterality: right Non-pressure ulcer stage: unspecified non-pressure ulcer stage Right calf pain M79.661 CAD (coronary artery disease) I25.10 Associated angina: without angina Coronary Disease-Associated Artery/Lesion type: [place] artery [place] vs. transplanted heart: [place] heart Acute hyperglycemia R73.9 Diabetes mellitus E11.9 Diabetes mellitus type: other specified (including TEVIN) Acute hyponatremia E87.1 Anemia D64.9 DVT prophylaxis Z29.9 (1) Diabetes mellitus Diabetes mellitus type: other specified (including TEVIN) (2) CAD (coronary artery disease) Associated angina: without angina Coronary Disease-Associated Artery/Lesion type: [place] artery [place] vs. transplanted heart: [place] heart Qualified Code(s): I25.10 - Atherosclerotic heart disease of [place] coronary artery without angina pectoris (3) Diabetic foot ulcer Diabetes mellitus type: type 1 Diabetic foot ulcer location: heel Laterality: right Non-pressure ulcer stage: unspecified non-pressure ulcer stage Qualified Code(s): E10.621 - Type 1 diabetes mellitus with foot ulcer; L97.419 - Non-pressure chronic ulcer of right heel and midfoot with unspecified severity
--- NOTE | 2020-05-23 15:11 | Wound Progress Note ---
Date of Service May 23, 2020 Assessment & Plan (1) Diabetic ulcer of right heel: 64-year-old male with diabetic foot ulcer of the right heel and underlying osteomyelitis of the calcaneus. No debridement was required today. Would recommend starting irrigating wound VAC today lungs patient jalil on antibiotics. Awaiting infectious disease input. We will recheck wound VAC on Friday and potentially if patient makes good progress do another 4-day cycle. Orthopedics is in agreement with conservative treatment at this time. Appreciate their input. We will continue to follow. Please call with any questions. (2) Osteomyelitis: Admission and Anticipated Discharge Date Admission Date: May 16, 2020 Subjective Patient seen at bedside with WOCN. Patient with no new complaints. Stating his pain is improved and he has more range of motion in his foot and calf. States he had his ID consult this morning however this is not in the system yet. Review of Systems Review of Systems: All systems reviewed & are unremarkable except as noted in HPI & below Physical Exam Physical Exam: Temp Pulse Resp BP Pulse Ox 36.9 C 85 18 144/78 H 95 05/23/20 08:03 05/23/20 08:03 05/23/20 08:03 05/23/20 08:03 05/23/20 08:03 Constitutional: WD/WN, vitals as above Skin: Wound measuring as recorded in nursing documentation. Wound is covered with fibrin, slough and granulation tissue. Wound borders are still demarcating. There is some foul odor but this is much improved from . There is a large amount of drainage. Neurologic: awake; not confused Results & Data ([facility]) Vital Signs (Past 12 Hours) Vital Signs Temp Pulse Resp BP Pulse Ox 05/23/20 08:03 36.9 C 85 18 144/78 H 95 Laboratory Results 05/23/20 05/23/20 05/23/20 Range/Units 12:14 07:59 06:05 WBC (4.8-10.8) K/uL RBC (4.7-6.1) M/uL Hgb (14.0-18.0) g/dL Hct (42-52) % MCV (80-100) fL MCH (25-34) pg MCHC (32-36) g/dL RDW Std Deviation (36.4-46.3) fL RDW Coeff of Mau (11.5-14.5) % Plt Count (130-400) K/uL MPV (7.4-10.4) fL ESR 66 H (0-14) mm/hr Sodium (136-145) mmol/L Potassium (3.5-5.1) mmol/L Chloride (98-107) mmol/L Carbon Dioxide (21-32) mmol/L Anion Gap (3-11) BUN (7-18) mg/dl Creatinine (0.6-1.4) mg/dl Est Cr Clr Drug Dosing ml/min Est GFR ( Amer) Est GFR (Non-Af Amer) BUN/Creatinine Ratio (10-20) Glucose (70-99) mg/dl POC Glucose 274 H 202 H (70-99) mg/dl Calcium (8.5-10.1) mg/dl C-Reactive Protein (0-0.29) mg/dl 05/23/20 05/23/20 05/22/20 Range/Units 06:05 06:05 20:36 WBC 5.73 (4.8-10.8) K/uL RBC 3.43 L (4.7-6.1) M/uL Hgb 9.6 L (14.0-18.0) g/dL Hct 29.2 L (42-52) % MCV 85.1 (80-100) fL MCH 28.0 (25-34) pg MCHC 32.9 (32-36) g/dL RDW Std Deviation 38.1 (36.4-46.3) fL RDW Coeff of Mau 12.3 (11.5-14.5) % Plt Count 275 (130-400) K/uL MPV 8.6 (7.4-10.4) fL ESR (0-14) mm/hr Sodium 135 L (136-145) mmol/L Potassium 3.7 (3.5-5.1) mmol/L Chloride 101 (98-107) mmol/L Carbon Dioxide 28 (21-32) mmol/L Anion Gap 5.0 (3-11) BUN 11 (7-18) mg/dl Creatinine 0.88 (0.6-1.4) mg/dl Est Cr Clr Drug Dosing 92.6 ml/min Est GFR ( Amer) 106.0 Est GFR (Non-Af Amer) 91.4 BUN/Creatinine Ratio 12.5 (10-20) Glucose 235 H (70-99) mg/dl POC Glucose 135 H (70-99) mg/dl Calcium 8.7 (8.5-10.1) mg/dl C-Reactive Protein 7.39 H (0-0.29) mg/dl 11/16/20 Range/Units 17:19 WBC (4.8-10.8) K/uL RBC (4.7-6.1) M/uL Hgb (14.0-18.0) g/dL Hct (42-52) % MCV (80-100) fL MCH (25-34) pg MCHC (32-36) g/dL RDW Std Deviation (36.4-46.3) fL RDW Coeff of Mau (11.5-14.5) % Plt Count (130-400) K/uL MPV (7.4-10.4) fL ESR (0-14) mm/hr Sodium (136-145) mmol/L Potassium (3.5-5.1) mmol/L Chloride (98-107) mmol/L Carbon Dioxide (21-32) mmol/L Anion Gap (3-11) BUN (7-18) mg/dl Creatinine (0.6-1.4) mg/dl Est Cr Clr Drug Dosing ml/min Est GFR ( Amer) Est GFR (Non-Af Amer) BUN/Creatinine Ratio (10-20) Glucose (70-99) mg/dl POC Glucose 177 H (70-99) mg/dl Calcium (8.5-10.1) mg/dl C-Reactive Protein (0-0.29) mg/dl Diagnostic Findings Right ankle MRI showing large skin ulceration at the level of the posterior calcaneus. #2 T1-T2 marrow edema bone the posterior calcaneus indicative of acute osteomyelitis 3 susceptibility artifact within the posterior soft tissues correlating to the gas visualized on prior x-ray. Findings are suspicious for necrotizing fasciitis. #4 distal Achilles tendon tear. #5 linear defect within the mid calcaneal body consistent with a insufficiency fracture. PG Care Time/CCT Total # of Minutes Spent Total Time Spent with Patient: Total time spent is greater than 50% in coordination of care (as documented) at patient's floor/unit and/or counseling patient: Coding Level of Care Code 83006 Subseq Hosp Care Lvl 2 Diagnoses Diabetic ulcer of right heel E11.621; L97.419 Osteomyelitis M86.9
--- NOTE | 2020-05-23 16:01 | XCELERA ---
[id number]
[2020-05-23] MEDS: INSULIN GLARGINE SOLOSTAR 100 UNITS/ML 3 ML PEN SC SCH (21:12)
[2020-05-24] MEDS: CLINDAMYCIN 600 MG in DEXTROSE 5% 50 ML IV SCH ×4 (00:41→23:45)
[2020-05-24] MEDS: PIPERACILLIN/TAZOBACTAM 4.5 GM in DEXTROSE 5% 100 ML IV SCH ×3 (04:57→21:02)
[2020-05-24] MEDS: HYDROCODONE/ACETAMOPHEN 5/325MG TAB PO PRN ×4 (05:02→23:43)
[2020-05-24] MEDS: ASPIRIN 81 MG ECTAB PO SCH (07:28)
[2020-05-24] MEDS: ATORVASTATIN 40 MG TAB PO SCH (07:29)
[2020-05-24] MEDS: GABAPENTIN 100 MG CAP PO SCH ×3 (07:29→21:01)
[2020-05-24] MEDS: lisinopril 5 MG TAB PO SCH (07:30)
[2020-05-24] MEDS: ENOXAPARIN INJ 40 MG/0.4 ML SYR SQ SCH (07:31)
[2020-05-24 08:10] LABS: Hematocrit (blood only) 27.1 % (42-52); Hemoglobin 9.2 g/dL (14.0-18.0); Mean Corpuscular Hemoglobin 28.8 pg (25-34); Mean Corpuscular Hgb Conc 33.9 g/dL (32-36); Mean Platelet Volume 8.6 fL (7.4-10.4); Platelet Count 276 K/uL (130-400); RDW Coefficient of Variation 12.2 % (11.5-14.5); RDW Standard Deviation 38.1 fL (36.4-46.3); Red Blood Count 3.19 M/uL (4.7-6.1)
[2020-05-24 08:36] LABS: Albumin Level 1.8 gm/dl (3.4-5.0); BUN Creatinine Ratio 17.4 (10-20); Calcium 8.9 mg/dl (8.5-10.1); Creatinine Clr Calc Pharmacy 99.4 ml/min; Est GFR (African American) 109.1; Est GFR (Non-African American) 94.1; Potassium 3.9 mmol/L (3.5-5.1)
[2020-05-24 08:38] LABS: Albumin Globulin Ratio 0.3 (0.9-2); Bilirubin,Total 0.4 mg/dl (0.2-1); Globulin 5.2 gm/dl (2.5-4.0)
[2020-05-24] MEDS ORDERED: INSULIN GLARGINE SOLOSTAR 100 UNITS/ML 3 ML PEN SC SCH (09:00)
[2020-05-24] MEDS: INSULIN ASPART 100 UNITS/ML 3 ML PEN SC SCH ×4 (09:07→21:07)
--- NOTE | 2020-05-24 09:35 | Hospitalist Progress Note ---
Date of Service May 24, 2020 Assessment & Plan (1) Osteomyelitis: From diabetic foot ulcer present since April * Debridement bedside 05/18 * Ortho consulted - no need for urgent surgery, waiting to see if wound care alone can salvage leg * BCx 1/2 growing gram positive cocci anaerobe, surface culture with alpha strep and gram negative anaerobe, wound culture from debridement pending * Foot culture with alpha strep not enterococcus, Prevotella bivia, bacteroides pyogenes, Anaerococcus prevotii. * Repeat culture with low counts probable mixed skin felicia * MRI results discussed with orthopedics, given finding of gas in the tissue. This was also seen on Xray on admission. Likely oxygen rather than production from anaerobe given large opening of the wound. MRI also showing osteomyelitis. Continue wound care debridement. * ID consult -- appreciate recommendations. Will continue current abx for now. * ECHO WITHOUT vegetations --> discontinued Vancomycin * Clindamycin to be determined based on source control * Will need 6 weeks Zosyn IV if able to discontinue above. Will need weekly labs while on Zosyn * Inflammatory markers still elevated but trending down. * --> CRP 7.3 from 33 and ESR 66 from >90 Will need follow up with wound care/ wound vac at d/c as we are not proceeding with amputation -- placed afternoon 05/23 and will be re-eval on Friday (2) Cellulitis of right lower leg: * Ulcer to R heel * MRI with concerns for osteo and ortho consulted -- felt gas likely oxygen rather than from anaerobe given large opening of wound * Continue Zosyn, clinda. Vanc d/c'd as above (trough was therapeutic) * ID consult as above (3) Diabetic foot ulcer: * As above (4) Right calf pain: * Secondary to infection * US venous Doppler - no DVT * Duplex Doppler 05/16 without hemodynamically significant stenosis, biphasic and triphasic flow in the right lower extremity. Ankle to brachial indices wnl * Oxy increased to 2 tabs prn severe pain with ZERO pain reported with this change. Will continue (5) CAD (coronary artery disease): * Restarted ASA. * Continue lisinopril * Restart atorvastatin 40mg PO daily * Not on BB?? (6) Acute hyperglycemia: * Pharmacy glycemic management (7) Diabetes mellitus: * HbA1c 10.7 in January, now 12.5% * On no insulin at home as he never refilled his discharge medications from his hospitalization in January/Feb and never got insurance or established with a PCP however was discharged on total 96 units/day. 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 repeat blood draw ns/medication related/foot as aboe * Continue to monitor (10) DVT prophylaxis: * Enoxaparin Dispo:continued inpatient stay. Plans for [facility] at discharge Admission and Anticipated Discharge Date Admission Date: May 16, 2020 Subjective Patient evaluated this morning. Pain currently controlled and has had to utilize less frequently. Eating/drinking without issues. Had woundvac applied last night. Some scant bloody drainage noted and plans for repeat eval on Friday with wound provider. Very determined to manage this without amputation at this time. Discussed ECHO and discontinuation of the Vancomycin and we will continue to monitor. No fever, chills, chest pain, shortness o f breath, n/v/d at this time. Review of Systems Review of Systems: All systems reviewed & are unremarkable except as noted in HPI & below Physical Exam Constitutional: WD/WN, vitals as above + well hydrated; no acute distress Eyes: PERRL, conjunctivae normal, anicteric sclerae ENMT: Ears: no hearing impairment Nose: no external nose abnormality Neck: trachea midline, no thyromegaly normal visual inspection Respiratory: normal respiratory effort, lungs clear to auscultation no respiratory distress and no labored breathing Auscultation: no crackles and no wheezes Cardiovascular: RRR, no murmur, no edema Extremities: normal capillary refill; no edema Gastrointestinal (Abdomen): normal bowel sounds, soft, nontender, no hepatosplenomegaly Musculoskeletal: no cyanosis or clubbing, extremities motor strength 5/5 Head/Neck/Chest: normocephalic and head atraumatic Skin: ulceration to R heel approx 8x6x1 with wound vac intact and functioning, scant bloody drainage noted pulses weak but palpable cleaned by wound RN during encounter sensation intact, minimally decreased with light touch Neurologic: moves all extremities and awake; not confused Motor/Sensory: + sensory deficit (below knee chronic peripheral neuropathy b/l) Psychiatric: A+Ox3, euthymic affect Orientation: alert and oriented x 3 Results & Data Results & [facility]) Vital Signs (Past 12 Hours) Vital Signs Temp Pulse Pulse Resp BP Pulse Ox 05/24/20 07:36 84 129/71 05/23/20 23:10 36.7 C 83 18 108/62 96 Laboratory Results 05/24/20 05/24/20 05/24/20 Range/Units 12:59 08:19 07:38 WBC (4.8-10.8) K/uL RBC (4.7-6.1) M/uL Hgb (14.0-18.0) g/dL Hct (42-52) % MCV (80-100) fL MCH (25-34) pg MCHC (32-36) g/dL RDW Std Deviation (36.4-46.3) fL RDW Coeff of Mau (11.5-14.5) % Plt Count (130-400) K/uL MPV (7.4-10.4) fL Sodium 135 L (136-145) mmol/L Potassium 3.9 (3.5-5.1) mmol/L Chloride 102 (98-107) mmol/L Carbon Dioxide 28 (21-32) mmol/L Anion Gap 5.0 (3-11) BUN 14 (7-18) mg/dl Creatinine 0.82 (0.6-1.4) mg/dl Est Cr Clr Drug Dosing 99.4 ml/min Est GFR ( Amer) 109.1 Est GFR (Non-Af Amer) 94.1 BUN/Creatinine Ratio 17.4 (10-20) Glucose 137 H (70-99) mg/dl POC Glucose 251 H 155 H (70-99) mg/dl Calcium 8.9 (8.5-10.1) mg/dl Total Bilirubin 0.4 (0.2-1) mg/dl AST 22 (15-37) U/L ALT 28 (12-78) U/L Alkaline Phosphatase 77 (45-117) U/L Total Protein 7.0 (6.4-8.2) gm/dl Albumin 1.8 L (3.4-5.0) gm/dl Globulin 5.2 H (2.5-4.0) gm/dl Albumin/Globulin Ratio 0.3 L (0.9-2) 05/24/20 05/23/20 05/23/20 Range/Units 07:38 20:35 17:13 WBC 8.10 (4.8-10.8) K/uL RBC 3.19 L (4.7-6.1) M/uL Hgb 9.2 L (14.0-18.0) g/dL Hct 27.1 L (42-52) % MCV 85.0 (80-100) fL MCH 28.8 (25-34) pg MCHC 33.9 (32-36) g/dL RDW Std Deviation 38.1 (36.4-46.3) fL RDW Coeff of Mau 12.2 (11.5-14.5) % Plt Count 276 (130-400) K/uL MPV 8.6 (7.4-10.4) fL Sodium (136-145) mmol/L Potassium (3.5-5.1) mmol/L Chloride (98-107) mmol/L Carbon Dioxide (21-32) mmol/L Anion Gap (3-11) BUN (7-18) mg/dl Creatinine (0.6-1.4) mg/dl Est Cr Clr Drug Dosing ml/min Est GFR ( Amer) Est GFR (Non-Af Amer) BUN/Creatinine Ratio (10-20) Glucose (70-99) mg/dl POC Glucose 113 H 120 H (70-99) mg/dl Calcium (8.5-10.1) mg/dl Total Bilirubin (0.2-1) mg/dl AST (15-37) U/L ALT (12-78) U/L Alkaline Phosphatase (45-117) U/L Total Protein (6.4-8.2) gm/dl Albumin (3.4-5.0) gm/dl Globulin (2.5-4.0) gm/dl Albumin/Globulin Ratio (0.9-2) Diagnostic Findings ECHO Left ventricular systolic function is normal No regional wall motion abnormalities noted There is mild concentric left ventricular hypertrophy Ejection Fraction 55-60% No valvular vegetations identified PG Care Time/CCT Total # of Minutes Spent Total Time Spent with Patient: Total time spent is greater than 50% in coordination of care (as documented) at patient's floor/unit and/or counseling patient: Coding Level of Care Code 12714 Subseq Hosp Care Lvl 2 Diagnoses Osteomyelitis M86.9 Cellulitis of right lower leg L03.115 Diabetic foot ulcer E10.621; L97.419 Diabetes mellitus type: type 1 Diabetic foot ulcer location: heel Laterality: right Non-pressure ulcer stage: unspecified non-pressure ulcer stage Right calf pain M79.661 CAD (coronary artery disease) I25.10 Coronary Disease-Associated Artery/Lesion type: [place] artery [place] vs. transplanted heart: [place] heart Associated angina: without angina Acute hyperglycemia R73.9 Diabetes mellitus E11.9 Diabetes mellitus type: other specified (including TEVIN) Acute hyponatremia E87.1 Anemia D64.9 DVT prophylaxis Z29.9 (1) Diabetic foot ulcer Diabetes mellitus type: type 1 Diabetic foot ulcer location: heel Laterality: right Non-pressure ulcer stage: unspecified non-pressure ulcer stage Qualified Code(s): E10.621 - Type 1 diabetes mellitus with foot ulcer; L97.419 - Non-pressure chronic ulcer of right heel and midfoot with unspecified severity (2) CAD (coronary artery disease) Coronary Disease-Associated Artery/Lesion type: [place] artery [place] vs. transplanted heart: [place] heart Associated angina: without angina Qualified Code(s): I25.10 - Atherosclerotic heart disease of [place] coronary artery withou t angina pectoris (3) Diabetes mellitus Diabetes mellitus type: other specified (including TEVIN)
[2020-05-24] MEDS: INSULIN GLARGINE SOLOSTAR 100 UNITS/ML 3 ML PEN SC SCH (21:09)
[2020-05-25] MEDS: PIPERACILLIN/TAZOBACTAM 4.5 GM in DEXTROSE 5% 100 ML IV SCH ×3 (04:00→19:32)
[2020-05-25] MEDS: CLINDAMYCIN 600 MG in DEXTROSE 5% 50 ML IV SCH ×3 (07:52→23:26)
[2020-05-25] MEDS: ASPIRIN 81 MG ECTAB PO SCH (07:58)
[2020-05-25] MEDS: ATORVASTATIN 40 MG TAB PO SCH (07:58)
[2020-05-25] MEDS: lisinopril 5 MG TAB PO SCH (07:58)
[2020-05-25] MEDS: GABAPENTIN 100 MG CAP PO SCH ×3 (07:59→20:38)
[2020-05-25] MEDS: ENOXAPARIN INJ 40 MG/0.4 ML SYR SQ SCH (07:59)
[2020-05-25] MEDS: HYDROCODONE/ACETAMOPHEN 5/325MG TAB PO PRN ×2 (08:02→17:04)
[2020-05-25 08:20] LABS: Basophils # (auto) 0.01 K/uL (0-0.2); Basophils % (auto) 0.1 %; Eosinophils # (auto) 0.29 K/uL (0-0.5); Eosinophils % (auto) 3.5 %; Hematocrit (blood only) 29.2 % (42-52); Hemoglobin 9.6 g/dL (14.0-18.0); Immature Granulocytes # (auto) 0.05 K/uL (0.00-0.02); Immature Granulocytes % (auto) 0.6 %; Lymphocytes # (auto) 1.48 K/uL (1.2-3.4); Lymphocytes % (auto) 17.9 %; Mean Corpuscular Hemoglobin 27.8 pg (25-34); Mean Corpuscular Hgb Conc 32.9 g/dL (32-36); Mean Corpuscular Volume 84.6 fL (80-100); Mean Platelet Volume 8.4 fL (7.4-10.4); Monocytes # (auto) 0.78 K/uL (0.11-0.59); Monocytes % (auto) 9.4 %; Neutrophils # (auto) 5.65 K/uL (1.4-6.5); Neutrophils % (auto) 68.5 %; Platelet Count 298 K/uL (130-400); RDW Coefficient of Variation 12.2 % (11.5-14.5); RDW Standard Deviation 37.8 fL (36.4-46.3); Red Blood Count 3.45 M/uL (4.7-6.1); White Blood Count 8.26 K/uL (4.8-10.8)
[2020-05-25 08:45] LABS: Calcium 9.3 mg/dl (8.5-10.1); Creatinine Clr Calc Pharmacy 105.8 ml/min; Est GFR (African American) 111.9; Est GFR (Non-African American) 96.6; Magnesium 1.7 mg/dl (1.8-2.4)
[2020-05-25 08:48] LABS: Albumin Globulin Ratio 0.4 (0.9-2); Bilirubin,Total 0.4 mg/dl (0.2-1); Globulin 5.4 gm/dl (2.5-4.0); Phosphorus 3.4 mg/dl (2.5-4.9); Total Protein 7.4 gm/dl (6.4-8.2)
[2020-05-25] MEDS: INSULIN ASPART 100 UNITS/ML 3 ML PEN SC SCH ×4 (08:49→20:39)
[2020-05-25] MEDS ORDERED: INSULIN GLARGINE SOLOSTAR 100 UNITS/ML 3 ML PEN SC SCH (09:00)
[2020-05-25] MEDS: MAGNESIUM SULFATE / D5W 1 GM/100 ML BAG IV SCH ×2 (10:16→12:20)
--- NOTE | 2020-05-25 14:01 | Pharmacy Report ---
Pharmacy Glycemic Short Note 2 - Date of Service May 25, 2020 - Glycemic Short BSG Results (Last 24 hours): 05/24/20 05/24/20 05/25/20 17:10 20:41 07:59 Glucose 145 H POC Glucose 182 H 170 H 05/25/20 05/25/20 05/25/20 08:31 12:18 12:20 Glucose POC Glucose 170 H 361 H* 365 H* OUTPATIENT ANTIDIABETIC REGIMEN: * n/a - Pt did not fill insulin Rx from admission * A1c = 10.7% in January 2020; now up to 12.5% 05/17/20 ASSESSMENT: 05/25 * 131 units of sq insulin given over the last 24 hours, BSGs moderately controlled (137-251 mg/dL) * Fasting 170 mg/dL, increasing lantus again today * Lunch BSG elevated however per nursing patient had an uncovered snack, therefore will not adjust novolog parameters for now. Lunch continues to be his highest BSG and then he improves with dinner/bedtime. This may be due to timing of breakfast, as well as snacking 05/23 * 111 units SQ insulin given over the last 24 hours * Fasting BSG this morning elevated again this morning, regimen is heavily bolus weighted, will give additional 10 units of lantus this AM and reassess fasting in AM. Patient was on NPH 30 units with breakfast and 25 units with dinner during previous admission in January * Lunch BSG elevated, however breakfast insulin given later in the morning therefore will not react to this BSG. 05/22 * 112 units SQ insulin given over last 24 hrs while tolerating a diet * Fasting BSG elevated this AM, FBS = 227, w/ 30 units Lantus on board. This is a clear change for him. The same basal dose had produced fasting BSGs 80-110s the last several days. Will not react to this single elevation, rather will reevaluate basal needs tomorrow AM. Of note, nursing documentation notes new onset R calf pain last evening along w/ flushing, chills and elevated temp. * Post-prandial BSGs well controlled w/ current CF/CR - no changes at this time. PLAN FOR INPATIENT GLYCEMIC CONTROL: * Basal insulin: increase * Lantus 25 units SQ HS, lantus 20 units x 1 this AM * Bolus insulin: no change * NovoLog per scale ACHS or Q6hrs while NPO * Goal Range: Low 110 mg/dL - High 140 mg/dL * Correction Factor: 12 mg/dL/unit * Nutritional / Prandial insulin per carb ratio of 1 unit per 3.5 grams CHO consumed PLAN FOR DISCHARGE: * A1c = 12.5 % on 05/17/20 * Goal A1c = <7 % based on age and comorbidities * A1c is greater than or equal to 10% consider triple therapy with metformin + basal insulin + (GLP1-RA OR prandial insulin). * Metformin should be started at the time type 2 diabetes is diagnosed unless there are contraindications. Metformin is effective and safe, is inexpensive, and may reduce risk of cardiovascular events and . * B12 supplementation may be necessary with fci metformin use * Metformin XR 500mg PO daily with evening meal. Typically the XR formulation of metformin is better tolerated than the immediate release formulation. Continue to titrate metformin dosing upwards as recommended. Dosage increases should be made in increments of 500 mg weekly, up to 2,000 mg/day PO, given in divided doses. Doses above 2000 mg/day may be better tolerated if divided and given 3 times per day with meals. Max: 2,550 mg/day PO, in divided doses * Insulin regimen will depend on insurance coverage. * Could consider NPH + Regular insulin or pre-mixed NPH/Regular 70/30 insulin if cost is an issue. Total daily dose ~ 70-80 units/day when not acutely ill, but will update this closer to discharge. * If cost is not an issue, recommend glargine + NovoLog; Total daily dose ~ 70-80 units/day when not acutely ill, but will update this closer to discharge. * Support Patient Self-Management * Healthy Lifestyle (diet, exercise, and smoking cessation) * Disease self-management (SMBG) * Prevention of complications (BP, Lipid goals, Immunizations) * Consider outpatient Diabetes Self-Management Education & Support *
--- NOTE | 2020-05-25 16:50 | Hospitalist Progress Note ---
Date of Service May 25, 2020 Assessment & Plan (1) Osteomyelitis: From diabetic foot ulcer present since April * Debridement bedside 05/18 * Ortho consulted - no need for urgent surgery, waiting to see if wound care alone can salvage leg * BCx 1/2 growing gram positive cocci anaerobe, surface culture with alpha strep and gram negative anaerobe, wound culture from debridement with low count mixed probable skin microbiota/no further id or sensitivities * Repeat blood cultures pending * Foot culture with alpha strep not enterococcus, Prevotella bivia, bacteroides pyogenes, Anaerococcus prevotii. * Repeat culture with low counts probable mixed skin felicia * MRI results discussed with orthopedics, given finding of gas in the tissue. This was also seen on Xray on admission. Likely oxygen rather than production from anaerobe given large opening of the wound. MRI also showing osteomyelit is. Continue wound care debridement. * ID consult -- appreciate recommendations. Will continue current abx for now. * ECHO WITHOUT vegetations --> discontinued Vancomycin * Clindamycin to be determined based on source control * Will need 6 weeks Zosyn IV if able to discontinue above. Will need weekly labs while on Zosyn * Inflammatory markers still elevated but trending down CRP 7.3 from 33 and ESR 66 from >90 and will repeat in AM. Will need follow up with wound care/ wound vac at d/c as we are not proceeding with amputation -- placed on 05/23 and re-evaluation tomorrow planned (2) Cellulitis of right lower leg: * Ulcer to R heel * MRI with concerns for osteo and ortho consulted -- felt gas likely oxygen rather than from anaerobe given large opening of wound * Continue Zosyn, clinda. Vanc d/c'd as above (trough was therapeutic) * ID consult as above (3) Diabetic foot ulcer: * As above (4) Right calf pain: * Secondary to infection * US venous Doppler - no DVT * Duplex Doppler 05/16 without hemodynamically significant stenosis, biphasic and triphasic flow in the right lower extremity. Ankle to brachial indices wnl * Oxy increased to 2 tabs prn severe pain with ZERO pain reported with this change. Will continue (5) CAD (coronary artery disease): * Restarted ASA. * Continue lisinopril * Restart atorvastatin 40mg PO daily * Not on BB -- consider initiating closer to d/c, BPs have been controlled (6) Acute hyperglycemia: * Pharmacy glycemic management -- continues to increase lantus (7) Diabetes mellitus: * HbA1c 10.7 in January, now 12.5% * On no insulin at home as he never refilled his discharge medications from his hospitalization in January/Feb and never got insurance or established with a PCP however was discharged on total 96 units/day. 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 * Will need Metformin XR 500mg, insulin at discharge -- specific needs to be determined closer to discharge * [facility] with assistance program and patient to have new insurance start at beginning of the year (8) Acute hyponatremia: * Na remains stable at 135 (9) Anemia: * h/h improved to 9.6/29 * stable but slightly decreased to 9.2/27.1 but improved to repeat blood drawn/medication related/foot as above * Continue to monitor (10) DVT prophylaxis: * Enoxaparin Hypomagnesemia --Mag checked given above (previously wnl) and slightly low at 1.7 -- ordered replacement and will repeat level in AM Dispo:continued inpatient stay. Plans for [facility] at discharge. CM following re-eval with wound tomorrow for wound vac Admission and Anticipated Discharge Date Admission Date: May 16, 2020 Subjective Patient evaluated this morning, up in chair on phone. Pain currently controlled. No issues reported. Wound vac to be re-evaluated in AM. Updated daughter via telephone in room with patient present. All questions/concerns addressed at this time. No fever, chills, chest pain, shortness of breath, abdominal pain. Continues to eat/drink without difficulty and move his bowels. Discussed slightly low mag level and ordered replacement. Review of Systems Review of Systems: All systems reviewed & are unremarkable except as noted in HPI & below Physical Exam Constitutional: WD/WN, vitals as above + well hydrated; no acute distress Eyes: PERRL, conjunctivae normal, anicteric sclerae ENMT: Ears: no hearing impairment Nose: no external nose abnormality Neck: normal visual inspection and trachea midline Respiratory: normal respiratory effort, lungs clear to auscultation no respiratory distress and no labored breathing Auscultation: no crackles and no wheezes Cardiovascular: RRR, no murmur, no edema Extremities: normal capillary refill; no edema Gastrointestinal (Abdomen): normal bowel sounds, soft, nontender, no hepatosplenomegaly Musculoskeletal: no cyanosis or clubbing, extremities motor strength 5/5 Head/Neck/Chest: normocephalic and head atraumatic ulceration to R heel approx 8x6x1 with wound vac intact and functioning, serosangionous drainage noted pulses weak but palpable sensation intact, minimally decreased with light touch to medial ankle minimally tender to palpation Skin: warm, dry Neurologic: moves all extremities and awake; not confused Motor/Sensory: + sensory deficit (below knee chronic peripheral neuropathy b/l) Psychiatric: A+Ox3, euthymic affect Orientation: alert and oriented x 3 Results & Data Results & Data ([facility]) Vital Signs (Past 12 Hours) Vital Signs Temp Pulse Resp BP BP Pulse Ox 05/25/20 15:42 36.9 C 89 20 140/76 96 05/25/20 07:53 36.6 C 90 16 155/80 H 96 Laboratory Results 05/25/20 05/25/20 05/25/20 Range/Units 12:20 12:18 08:31 WBC (4.8-10.8) K/uL RBC (4.7-6.1) M/uL Hgb (14.0-18.0) g/dL Hct (42-52) % MCV (80-100) fL MCH (25-34) pg MCHC (32-36) g/dL RDW Std Deviation (36.4-46.3) fL RDW Coeff of Mau (11.5-14.5) % Plt Count (130-400) K/uL MPV (7.4-10.4) fL Immature Gran % (Auto) % Neut % (Auto) % Lymph % (Auto) % [place] % (Auto) % Eos % (Auto) % Baso % (Auto) % Neut # (Auto) (1.4-6.5) K/uL Lymph # (Auto) (1.2-3.4) K/uL [place] # (Auto) (0.11-0.59) K/uL Eos # (Auto) (0-0.5) K/uL Baso # (Auto) (0-0.2) K/uL Immature Gran # (Auto) (0.00-0.02) K/uL Sodium (136-145) mmol/L Potassium (3.5-5.1) mmol/L Chloride (98-107) mmol/L Carbon Dioxide (21-32) mmol/L Anion Gap (3-11) BUN (7-18) mg/dl Creatinine (0.6-1.4) mg/dl Est Cr Clr Drug Dosing ml/min Est GFR ( Amer) Est GFR (Non-Af Amer) BUN/Creatinine Ratio (10-20) Glucose (70-99) mg/dl POC Glucose 365 H* 361 H* 170 H (70-99) mg/dl Calcium (8.5-10.1) mg/dl Phosphorus (2.5-4.9) mg/dl Magnesium (1.8-2.4) mg/dl Total Bilirubin (0.2-1) mg/dl AST (15-37) U/L ALT (12-78) U/L Alkaline Phosphatase (45-117) U/L Total Protein (6.4-8.2) gm/dl Albumin (3.4-5.0) gm/dl Globulin (2.5-4.0) gm/dl Albumin/Globulin Ratio (0.9-2) 05/25/20 05/25/20 05/24/20 Range/Units 07:59 07:59 20:41 WBC 8.26 (4.8-10.8) K/uL RBC 3.45 L (4.7-6.1) M/uL Hgb 9.6 L (14.0-18.0) g/dL Hct 29.2 L (42-52) % MCV 84.6 (80-100) fL MCH 27.8 (25-34) pg MCHC 32.9 (32-36) g/dL RDW Std Deviation 37.8 (36.4-46.3) fL RDW Coeff of Mau 12.2 (11.5-14.5) % Plt Count 298 (130-400) K/uL MPV 8.4 (7.4-10.4) fL Immature Gran % (Auto) 0.6 % Neut % (Auto) 68.5 % Lymph % (Auto) 17.9 % [place] % (Auto) 9.4 % Eos % (Auto) 3.5 % Baso % (Auto) 0.1 % Neut # (Auto) 5.65 (1.4-6.5) K/uL Lymph # (Auto) 1.48 (1.2-3.4) K/uL [place] # (Auto) 0.78 H (0.11-0.59) K/uL Eos # (Auto) 0.29 (0-0.5) K/uL Baso # (Auto) 0.01 (0-0.2) K/uL Immature Gran # (Auto) 0.05 H (0.00-0.02) K/uL Sodium 135 L (136-145) mmol/L Potassium 4.0 (3.5-5.1) mmol/L Chloride 101 (98-107) mmol/L Carbon Dioxide 29 (21-32) mmol/L Anion Gap 5.0 (3-11) BUN 12 (7-18) mg/dl Creatinine 0.77 (0.6-1.4) mg/dl Est Cr Clr Drug Dosing 105.8 ml/min Est GFR ( Amer) 111.9 Est GFR (Non-Af Amer) 96.6 BUN/Creatinine Ratio 16.0 (10-20) Glucose 145 H (70-99) mg/dl POC Glucose 170 H (70-99) mg/dl Calcium 9.3 (8.5-10.1) mg/dl Phosphorus 3.4 (2.5-4.9) mg/dl Magnesium 1.7 L (1.8-2.4) mg/dl Total Bilirubin 0.4 (0.2-1) mg/dl AST 19 (15-37) U/L ALT 27 (12-78) U/L Alkaline Phosphatase 80 (45-117) U/L Total Protein 7.4 (6.4-8.2) gm/dl Albumin 2.0 L (3.4-5.0) gm/dl Globulin 5.4 H (2.5-4.0) gm/dl Albumin/Globulin Ratio 0.4 L (0.9-2) /18/20 Range/Units 17:10 WBC (4.8-10.8) K/uL RBC (4.7-6.1) M/uL Hgb (14.0-18.0) g/dL Hct (42-52) % MCV (80-100) fL MCH (25-34) pg MCHC (32-36) g/dL RDW Std Deviation (36.4-46.3) fL RDW Coeff of Mau (11.5-14.5) % Plt Count (130-400) K/uL MPV (7.4-10.4) fL Immature Gran % (Auto) % Neut % (Auto) % Lymph % (Auto) % [place] % (Auto) % Eos % (Auto) % Baso % (Auto) % Neut # (Auto) (1.4-6.5) K/uL Lymph # (Auto) (1.2-3.4) K/uL [place] # (Auto) (0.11-0.59) K/uL Eos # (Auto) (0-0.5) K/uL Baso # (Auto) (0-0.2) K/uL Immature Gran # (Auto) (0.00-0.02) K/uL Sodium (136-145) mmol/L Potassium (3.5-5.1) mmol/L Chloride (98-107) mmol/L Carbon Dioxide (21-32) mmol/L Anion Gap (3-11) BUN (7-18) mg/dl Creatinine (0.6-1.4) mg/dl Est Cr Clr Drug Dosing ml/min Est GFR ( Amer) Est GFR (Non-Af Amer) BUN/Creatinine Ratio (10-20) Glucose (70-99) mg/dl POC Glucose 182 H (70-99) mg/dl Calcium (8.5-10.1) mg/dl Phosphorus (2.5-4.9) mg/dl Magnesium (1.8-2.4) mg/dl Total Bilirubin (0.2-1) mg/dl AST (15-37) U/L ALT (12-78) U/L Alkaline Phosphatase (45-117) U/L Total Protein (6.4-8.2) gm/dl Albumin (3.4-5.0) gm/dl Globulin (2.5-4.0) gm/dl Albumin/Globulin Ratio (0.9-2) PG Care Time/CCT Total # of Minutes Spent Total Time Spent with Patient: Total time spent is greater than 50% in coordination of care (as documented) at patient's floor/unit and/or counseling patient: Coding Level of Care Code 86659 Subseq Hosp Care Lvl 2 Diagnoses Osteomyelitis M86.9 Cellulitis of right lower leg L03.115 Diabetic foot ulcer E10.621; L97.419 Diabetes mellitus type: type 1 Diabetic foot ulcer location: heel Laterality: right Non-pressure ulcer stage: unspecified non-pressure ulcer stage Right calf pain M79.661 CAD (coronary artery disease) I25.10 Coronary Disease-Associated Artery/Lesion type: [place] artery [place] vs. transplanted heart: [place] heart Associated angina: without angina Acute hyperglycemia R73.9 Diabetes mellitus E11.9 Diabetes mellitus type: other specified (including TEVIN) Acute hyponatremia E87.1 Anemia D64.9 DVT prophylaxis Z29.9 (1) Diabetic foot ulcer Diabetes mellitus type: type 1 Diabetic foot ulcer location: heel Laterality: right Non-pressure ulcer stage: unspecified non-pressure ulcer stage Qualified Code(s): E10.621 - Type 1 diabetes mellitus with foot ulcer; L97.419 - Non-pressure chronic ulcer of right heel and midfoot with unspecified severity (2) CAD (coronary artery disease) Coronary Disease-Associated Artery/Lesion type: [place] artery [place] vs. transplanted heart: [place] heart Associated angina: without angina Qualified Code(s): I25.10 - Atherosclerotic heart disease of [place] coronary artery without angina pectoris (3) Diabetes mellitus Diabetes mellitus type: other specified (including TEVIN)
[2020-05-25] MEDS ORDERED: INSULIN HUMAN REGULAR PER UNIT 5 UNITS in SYRINGE 4.95 ML IV ONE (17:45)
[2020-05-25] MEDS: INSULIN GLARGINE SOLOSTAR 100 UNITS/ML 3 ML PEN SC SCH (20:38)
[2020-05-26] MEDS: HYDROCODONE/ACETAMOPHEN 5/325MG TAB PO PRN ×3 (01:40→20:22)
[2020-05-26] MEDS: PIPERACILLIN/TAZOBACTAM 4.5 GM in DEXTROSE 5% 100 ML IV SCH ×3 (03:37→20:19)
[2020-05-26 07:31] LABS: Hematocrit (blood only) 29.6 % (42-52); Hemoglobin 10.1 g/dL (14.0-18.0); Mean Corpuscular Hemoglobin 28.5 pg (25-34); Mean Corpuscular Hgb Conc 34.1 g/dL (32-36); Mean Corpuscular Volume 83.6 fL (80-100); Mean Platelet Volume 8.3 fL (7.4-10.4); Platelet Count 304 K/uL (130-400); RDW Coefficient of Variation 12.2 % (11.5-14.5); RDW Standard Deviation 37.4 fL (36.4-46.3); Red Blood Count 3.54 M/uL (4.7-6.1); White Blood Count 7.81 K/uL (4.8-10.8)
[2020-05-26] MEDS: CLINDAMYCIN 600 MG in DEXTROSE 5% 50 ML IV SCH (07:54)
[2020-05-26] MEDS: GABAPENTIN 100 MG CAP PO SCH ×3 (07:57→20:16)
[2020-05-26] MEDS: ASPIRIN 81 MG ECTAB PO SCH (07:57)
[2020-05-26] MEDS: ENOXAPARIN INJ 40 MG/0.4 ML SYR SQ SCH (07:57)
[2020-05-26] MEDS: ATORVASTATIN 40 MG TAB PO SCH (07:57)
[2020-05-26] MEDS: lisinopril 5 MG TAB PO SCH (07:58)
[2020-05-26 08:03] LABS: BUN Creatinine Ratio 15.9 (10-20); Calcium 9.5 mg/dl (8.5-10.1); Creatinine Clr Calc Pharmacy 87.6 ml/min; Est GFR (African American) 100.9; Est GFR (Non-African American) 87.1; Magnesium 1.8 mg/dl (1.8-2.4); Potassium 4.1 mmol/L (3.5-5.1)
[2020-05-26] MEDS: INSULIN ASPART 100 UNITS/ML 3 ML PEN SC SCH ×4 (08:38→21:31)
[2020-05-26] MEDS ORDERED: INSULIN GLARGINE SOLOSTAR 100 UNITS/ML 3 ML PEN SC SCH ×2 (09:00→21:00)
--- NOTE | 2020-05-26 09:58 | Hospitalist Progress Note ---
Date of Service May 26, 2020 Assessment & Plan (1) Osteomyelitis: From diabetic foot ulcer present since April * Debridement bedside 05/18 * Ortho consulted - no need for urgent surgery, waiting to see if wound care alone can salvage leg * BCx 1/2 growing gram positive cocci anaerobe, surface culture with alpha strep and gram negative anaerobe, wound culture from debridement with low count mixed probable skin microbiota/no further id or sensitivities * Repeat blood cultures pending * Foot culture with alpha strep not enterococcus, Prevotella bivia, bacteroides pyogenes, Anaerococcus prevotii. * Repeat culture with low counts probable mixed skin felicia * MRI results discussed with orthopedics, given finding of gas in the tissue. This was also seen on Xray on admission. Likely oxygen rather than production from anaerobe given large opening of the wound. MRI also showing osteomyelit is. Continue wound care debridement. * ID consult -- appreciate recommendations. Will continue current abx for now. * ECHO WITHOUT vegetations --> discontinued Vancomycin * Clindamycin to be determined based on source control * Will need 6 weeks Zosyn IV if able to discontinue above. Will need weekly labs while on Zosyn * Inflammatory markers still elevated but trending down CRP 7.3 from 33 and ESR 66 from >90 and will repeat in AM. 05/26: Continue Zosyn x 6 weeks from last blood cultures 05/24 Will need follow up with wound care/ wound vac at d/c as we are not proceeding with amputation -- need for continuous and being arranged by CM Discussed with wound provider and feels that we can discontinue the clindamycin and proceed with limb salvage and if any s/sx worsening would add back on at that time Will order PICC line for anticipation for discharge tomorrow Will need weekly labs while on Zosyn. Repeat blood cultures NGTD (2) Cellulitis of right lower leg: * Ulcer to R heel * MRI with concerns for osteo and ortho consulted -- felt gas likely oxygen rather than from anaerobe given large opening of wound * Continue Zosyn. Clinda as above. * Vanc d/c'd as above (trough was therapeutic) * ID consult as above (3) Diabetic foot ulcer: * As above (4) Right calf pain: * Secondary to infection * US venous Doppler - no DVT * Duplex Doppler 05/16 without hemodynamically significant stenosis, biphasic and triphasic flow in the right lower extremity. Ankle to brachial indices wnl * Oxy increased to 2 tabs prn severe pain with ZERO pain reported with this change. Will continue (5) CAD (coronary artery disease): * Restarted ASA. * Continue lisinopril * Restart atorvastatin 40mg PO daily * Not on BB -- consider initiating closer to d/c, BPs have been controlled and currently lower, 107/67 and asymptomatic (6) Acute hyperglycemia: * Pharmacy glycemic management -- continues to increase lantus and will need set up with medication regimen at discharge. TBD by pharmacy closer to d/c (7) Diabetes mellitus: * HbA1c 10.7 in January, now 12.5% * On no insulin at home as he never refilled his discharge medications from his hospitalization in and never got insurance or established with a PCP however was discharged on total 96 units/day. 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 (9) Anemia: * h/h improved to 10/29.6 * Continue to monitor (10) DVT prophylaxis: * Enoxaparin Hypomagnesemia --Mag checked given above (previously wnl) and slightly low at 1.7 -- ordered replacement and repeat wnl Dispo:continued inpatient stay. Plans for [facility] at discharge, possible tomorrow. Will need wound vac, follow up with wound care and orthopedics Ordered PICC line in anticipation -- to be done tonight or tomorrow after 11am CM following Admission and Anticipated Discharge Date Admission Date: May 16, 2020 Subjective Patient evaluated this morning. Doing well. Excited about encounter with wound provider this morning and moving forward with limb salvage at this time. Discussed discontinuing clindamycin but if any worsening would add back on. Will need 6 weeks and will obtain IV access and possible discharge to [facility] for tomorrow. Patient states pain controlled with current regimen. Eating/drinking and moving bowels without difficulty. No fever, chills, chest pain, shortness of breath, abdominal pain or dysuria at this time. Review of Systems Review of Systems: All systems reviewed & are unremarkable except as noted in HPI & below Physical Exam Constitutional: WD/WN, vitals as above + well hydrated; no acute distress Eyes: PERRL, conjunctivae normal, anicteric sclerae ENMT: Ears: no hearing impairment Nose: no external nose abnormality Neck: trachea midline, no thyromegaly normal visual inspection and trachea midline Respiratory: normal respiratory effort, lungs clear to auscultation no respiratory distress and no labored breathing Auscultation: no crackles and no wheezes Cardiovascular: RRR, no murmur, no edema Extremities: normal capillary refill; no edema Gastrointestinal (Abdomen): normal bowel sounds, soft, nontender, no hepatosplenomegaly Musculoskeletal: no cyanosis or clubbing, extremities motor strength 5/5 Head/Neck/Chest: normocephalic and head atraumatic Skin: ulceration to R heel approx 8x6x1 with wound vac intact and functioning (IMPROVED), serosangionous drainage noted pulses weak but palpable sensation intact, minimally decreased with light touch to medial ankle non tender to palpation Neurologic: moves all extremities and awake; not confused Motor/Sensory: + sensory deficit (below knee chronic peripheral neuropathy b/l) Psychiatric: A+Ox3, euthymic affect Results & Data Results & Data ([facility]) Vital Signs (Past 12 Hours) Vital Signs Temp Pulse Resp BP BP Pulse Ox 05/26/20 07:58 36.7 C 90 18 107/67 98 05/25/20 23:16 36.8 C 93 H 18 155/74 H 97 Laboratory Results 05/26/20 05/26/20 05/26/20 Range/Units 08:06 07:16 07:16 WBC 7.81 (4.8-10.8) K/uL RBC 3.54 L (4.7-6.1) M/uL Hgb 10.1 L (14.0-18.0) g/dL Hct 29.6 L (42-52) % MCV 83.6 (80-100) fL MCH 28.5 (25-34) pg MCHC 34.1 (32-36) g/dL RDW Std Deviation 37.4 (36.4-46.3) fL RDW Coeff of Mau 12.2 (11.5-14.5) % Plt Count 304 (130-400) K/uL MPV 8.3 (7.4-10.4) fL Sodium 133 L (136-145) mmol/L Potassium 4.1 (3.5-5.1) mmol/L Chloride 100 (98-107) mmol/L Carbon Dioxide 27 (21-32) mmol/L Anion Gap 6.0 (3-11) BUN 15 (7-18) mg/dl Creatinine 0.93 (0.6-1.4) mg/dl Est Cr Clr Drug Dosing 87.6 ml/min Est GFR ( Amer) 100.9 Est GFR (Non-Af Amer) 87.1 BUN/Creatinine Ratio 15.9 (10-20) Glucose 185 H (70-99) mg/dl POC Glucose 209 H (70-99) mg/dl Calcium 9.5 (8.5-10.1) mg/dl Magnesium 1.8 (1.8-2.4) mg/dl 05/25/20 05/25/20 05/25/20 Range/Units 20:35 17:13 17:12 WBC (4.8-10.8) K/uL RBC (4.7-6.1) M/uL Hgb (14.0-18.0) g/dL Hct (42-52) % MCV (80-100) fL MCH (25-34) pg MCHC (32-36) g/dL RDW Std Deviation (36.4-46.3) fL RDW Coeff of Mau (11.5-14.5) % Plt Count (130-400) K/uL MPV (7.4-10.4) fL Sodium (136-145) mmol/L Potassium (3.5-5.1) mmol/L Chloride (98-107) mmol/L Carbon Dioxide (21-32) mmol/L Anion Gap (3-11) BUN (7-18) mg/dl Creatinine (0.6-1.4) mg/dl Est Cr Clr Drug Dosing ml/min Est GFR ( Amer) Est GFR (Non-Af Amer) BUN/Creatinine Ratio (10-20) Glucose (70-99) mg/dl POC Glucose 207 H 336 H* 333 H* (70-99) mg/dl Calcium (8.5-10.1) mg/dl Magnesium (1.8-2.4) mg/dl 05/25/20 05/25/20 Range/Units 12:20 12:18 WBC (4.8-10.8) K/uL RBC (4.7-6.1) M/uL Hgb (14.0-18.0) g/dL Hct (42-52) % MCV (80-100) fL MCH (25-34) pg MCHC (32-36) g/dL RDW Std Deviation (36.4-46.3) fL RDW Coeff of Mau (11.5-14.5) % Plt Count (130-400) K/uL MPV (7.4-10.4) fL Sodium (136-145) mmol/L Potassium (3.5-5.1) mmol/L Chloride (98-107) mmol/L Carbon Dioxide (21-32) mmol/L Anion Gap (3-11) BUN (7-18) mg/dl Creatinine (0.6-1.4) mg/dl Est Cr Clr Drug Dosing ml/min Est GFR ( Amer) Est GFR (Non-Af Amer) BUN/Creatinine Ratio (10-20) Glucose (70-99) mg/dl POC Glucose 365 H* 361 H* (70-99) mg/dl Calcium (8.5-10.1) mg/dl Magnesium (1.8-2.4) mg/dl PG Care Time/CCT Total # of Minutes Spent Total Time Spent with Patient: Total time spent is greater than 50% in coordination of care (as documented) at patient's floor/unit and/or counseling patient: Coding Level of Care Code 92048 Subseq Hosp Care Lvl 3 Diagnoses Osteomyelitis M86.9 Cellulitis of right lower leg L03.115 Diabetic foot ulcer E10.621; L97.419 Diabetes mellitus type: type 1 Diabetic foot ulcer location: heel Laterality: right Non-pressure ulcer stage: unspecified non-pressure ulcer stage Right calf pain M79.661 CAD (coronary artery disease) I25.10 Coronary Disease-Associated Artery/Lesion type: [place] artery [place] vs. transplanted heart: [place] heart Associated angina: without angina Acute hyperglycemia R73.9 Diabetes mellitus E11.9 Diabetes mellitus type: other specified (including TEVIN) Acute hyponatremia E87.1 Anemia D64.9 DVT prophylaxis Z29.9 (1) Diabetic foot ulcer Diabetes mellitus type: type 1 Diabetic foot ulcer location: heel Laterality: right Non-pressure ulcer stage: unspecified non-pressure ulcer stage Qualified Code(s): E10.621 - Type 1 diabetes mellitus with foot ulcer; L97.419 - Non-pressure chronic ulcer of right heel and midfoot with unspecified severity (2) CAD (coronary artery disease) Coronary Disease-Associated Artery/Lesion type: [place] artery [place] vs. transplanted heart: [place] heart Associated angina: without angina Qualified Code(s): I25.10 - Atherosclerotic heart disease of [place] coronary artery without angina pectoris (3) Diabetes mellitus Diabetes mellitus type: other specified (including TEVIN)
--- NOTE | 2020-05-26 13:22 | Pharmacy Report ---
Glycemic Control Progress Note - Date of Service May 26, 2020 - Scope Glycemic Pharmacist consulted for glycemic control to write orders per [facility] inpatient glycemic control protocol. - Objective Accuchecks BSG(last 24 hours):: 05/25/20 05/25/20 05/25/20 17:12 17:13 20:35 Glucose POC Glucose 333 H* 336 H* 207 H 05/26/20 05/26/20 05/26/20 07:16 08:06 11:48 Glucose 185 H POC Glucose 209 H 263 H HbA1c:: Hemoglobin A1c 12.5 % (4.5-5.6) H 05/17/20 05:19 - Recent Pertinent Medications The patient is currently receiving: * Basal insulin: Lantus 20 units in the morning and 25 units in the evening * Correctional Insulin: Novolog Correction per scale ACHS Goal Range: Low 110 mg/dL - High 140 mg/dL Correction Factor: 10 mg/dL/unit * Prandial insulin: Per carb ratio of 1 unit per 3 grams CHO consumed - Outpatient Anti-Diabetic Meds N/A - Assessment & Plan ASSESSMENT: * See progress note from 05/18/20 for more background info, in short: * Pt receiving SQ basal bolus insulin regimen for hyperglycemia secondary to baseline DM (outpatient regimen on hold),stress/infection (osteomyelitis on Zosyn), * Patient is currently receiving an average of 149 units of insulin per day * 45 units of basal insulin * 104 units of prandial/correctional insulin * BSGs ranging 170 - 365 mg/dl over the past 24hrs * Changes needed to insulin regimen: * AM Fasting BSG = 209 mg/dl. This is above goal range for patient based on inpatient targets and co-morbidities. Plan to increase basal insulin by at least 20% to 55 units. Made available higher dose tonight if patient's BSG still elevated above 160 mg/dL. This would provide a 30% increase. * Post-prandial BSGs were not controlled yesterday. CF/CR tightened by second shift pharmacist. Will continue. * Total daily dose = >150 units. Increased insulin, especially basal appropriately. PLAN FOR INPATIENT GLYCEMIC CONTROL: * INCREASING Lantus to 30 units SQ BID (25 units tonight if BSG < 160 mg/dL) * Continuing correction factor of 10 mg/dl/unit * Continuing carb ratio of 1 unit per 3 grams CHO consumed * Continuing goal range of Low 110 mg/dL - High 140 mg/dL * Please note that the plan above was derived based on current level of insulin resistance and hospital stress. These recommendations are appropriate for inpatient admission only. Plan of care upon discharge will need to be reassessed to avoid potential outpatient hypo/hyperglycemia. Thank you.
--- NOTE | 2020-05-26 14:43 | Wound Progress Note ---
Date of Service May 26, 2020 Assessment & Plan (1) Diabetic ulcer of right heel: Wound is significantly improved. Wound needed debridement. Using scissors and forceps necrotic tissue was removed from the posterior aspect of the wound. There was no bleeding. Patient tolerated procedure well with no complications. This represents nonexcisional debridement of less than 20 cm. Discussed case with Dr. Noe. We will continue to proceed with attempt at limb salvage. We will reapply the choice cleanse wound VAC 125 mmHg. Patient may be discharged to [facility] if medically stable. Please call with any questions. Thank you for limited participate in the care of this patient. (2) Osteomyelitis: Admission and Anticipated Discharge Date Admission Date: May 16, 2020 Subjective Patient seen at bedside with WOCN. Wound VAC is in tact. Patient continues to state he has decreasing pain. He remains on IV antibiotics. Review of Systems Review of Systems: All systems reviewed & are unremarkable except as noted in HPI & below Physical Exam Physical Exam: Temp Pulse Resp BP Pulse Ox 36.7 C 90 18 107/67 98 05/26/20 07:58 05/26/20 07:58 05/26/20 07:58 05/26/20 07:58 05/26/20 07:58 Skin: Wound measuring as recorded in nursing documentation. Wound is covered with healthy granulation tissue. Periwound with necrotic tissue. There is moderate drainage and no foul odor. Neurologic: awake; not confused Psychiatric: A+Ox3, euthymic affect Results & Data ([facility]) Vital Signs (Past 12 Hours) Vital Signs Temp Pulse Resp BP Pulse Ox 05/26/20 07:58 36.7 C 90 18 107/67 98 PG Care Time/CCT Total # of Minutes Spent Total Time Spent with Patient: Total time spent is greater than 50% in coordination of care (as documented) at patient's floor/unit and/or counseling patient: Coding Level of Care Code 34920 Subseq Hosp Care Lvl 2 Diagnoses Diabetic ulcer of right heel E11.621; L97.419 Osteomyelitis M86.9
[2020-05-27] MEDS: INSULIN ASPART 100 UNITS/ML 3 ML PEN SC SCH ×3 (00:31→08:31)
[2020-05-27] MEDS: PIPERACILLIN/TAZOBACTAM 4.5 GM in DEXTROSE 5% 100 ML IV SCH ×3 (04:11→20:23)
[2020-05-27] MEDS: HYDROCODONE/ACETAMOPHEN 5/325MG TAB PO PRN ×3 (06:19→20:22)
[2020-05-27 06:31] LABS: Basophils # (auto) 0.03 K/uL (0-0.2); Basophils % (auto) 0.5 %; Eosinophils # (auto) 0.23 K/uL (0-0.5); Eosinophils % (auto) 3.8 %; Hematocrit (blood only) 27.5 % (42-52); Hemoglobin 9.1 g/dL (14.0-18.0); Immature Granulocytes # (auto) 0.03 K/uL (0.00-0.02); Immature Granulocytes % (auto) 0.5 %; Lymphocytes # (auto) 1.37 K/uL (1.2-3.4); Lymphocytes % (auto) 22.6 %; Mean Corpuscular Hgb Conc 33.1 g/dL (32-36); Mean Corpuscular Volume 84.6 fL (80-100); Mean Platelet Volume 8.6 fL (7.4-10.4); Monocytes # (auto) 0.62 K/uL (0.11-0.59); Monocytes % (auto) 10.2 %; Neutrophils # (auto) 3.79 K/uL (1.4-6.5); Neutrophils % (auto) 62.4 %; Platelet Count 290 K/uL (130-400); RDW Coefficient of Variation 12.1 % (11.5-14.5); RDW Standard Deviation 37.7 fL (36.4-46.3); Red Blood Count 3.25 M/uL (4.7-6.1); White Blood Count 6.07 K/uL (4.8-10.8)
[2020-05-27 06:56] LABS: Albumin Level 1.9 gm/dl (3.4-5.0); BUN Creatinine Ratio 18.9 (10-20); C Reactive Protein 7.78 mg/dl (0-0.29); Calcium 9.3 mg/dl (8.5-10.1); Creatinine Clr Calc Pharmacy 87.6 ml/min; Est GFR (African American) 100.9; Est GFR (Non-African American) 87.1; Potassium 4.1 mmol/L (3.5-5.1)
[2020-05-27 06:59] LABS: Albumin Globulin Ratio 0.3 (0.9-2); Bilirubin,Total 0.2 mg/dl (0.2-1); Globulin 5.6 gm/dl (2.5-4.0); Total Protein 7.5 gm/dl (6.4-8.2)
[2020-05-27] MEDS: INSULIN GLARGINE SOLOSTAR 100 UNITS/ML 3 ML PEN SC SCH ×2 (08:31→21:06)
[2020-05-27] MEDS: GABAPENTIN 100 MG CAP PO SCH ×3 (08:34→20:23)
[2020-05-27] MEDS: ENOXAPARIN INJ 40 MG/0.4 ML SYR SQ SCH (08:34)
[2020-05-27] MEDS: ATORVASTATIN 40 MG TAB PO SCH (08:34)
[2020-05-27] MEDS: lisinopril 5 MG TAB PO SCH (08:34)
[2020-05-27] MEDS: ASPIRIN 81 MG ECTAB PO SCH (08:34)
[2020-05-27] MEDS: INSULIN ASPART 100 UNITS/ML VIAL SC SCH ×4 (08:44→21:07)
--- NOTE | 2020-05-27 11:46 | Hospitalist Progress Note ---
Date of Service May 27, 2020 Assessment & Plan (1) Osteomyelitis: Diabetic foot ulcer present since April 2020 * Debridement bedside 05/18 * Ortho consulted - no need for urgent surgery, waiting to see if wound care alone can salvage leg * Initial Blood Culture 1/2 grew gram positive cocci anaerobe, surface culture with alpha strep and gram negative anaerobe, wound culture from debridement with low count mixed probable skin microbiota/no further identification or sensitivities * Repeat blood cultures 05/24 -- No growth. * Foot culture with alpha strep not enterococcus, Prevotella bivia, bacteroides pyogenes, Anaerococcus prevotii. * Repeat culture with low counts probable mixed skin felicia * MRI results discussed with orthopedics, given finding of gas in the tissue. This was also seen on X-ray on admission. Likely oxygen rather than production from anaerobe given large opening of the wound. MRI also showing osteomyelitis. Continue wound care debridement. * ID consult -- appreciate recommendations. Will continue current abx for now. * ECHO WITHOUT vegetations --> discontinued Vancomycin * Clindamycin to be determined based on source control * Will need 6 weeks Zosyn IV if able to discontinue above. Will need weekly labs while on Zosyn * Inflammatory markers still elevated but trending down CRP 7.3 from 33 and ESR 66 from >90 and will repeat in AM. 05/27/2020: Continue Zosyn x 6 weeks from last blood cultures until 07/05/2020 Will need follow up with wound care/ wound vac at d/c as we are not proceeding with amputation -- need for continuous and being arranged by CM Discussed with wound provider and feels that we can discontinue the clindamycin and proceed with limb salvage and if any signs or symptoms worsening would add back at that time Will order PICC line for anticipation for discharge tomorrow Will need weekly labs while on Zosyn. (2) Dermatophytosis: -- Add miconazole 2% cream. -- Keep area clean and dry. Admission and Anticipated Discharge Date Admission Date: May 16, 2020 Subjective Mr. Jean admitted with diabetic foot/heel ulcer and osteomyelitis. Wound care team is following him closely, wound vac is in place and intact. He denies any fevers, chills, or any pain in his foot or heel. He does have some intermittent pain of his right posterior leg. No swelling of his leg. Patient also complains of a burning rash on his buttocks, upper thighs, and his crotch. Lying in bed makes him sweat and the sweating makes this rash more painful. Physical Exam Physical Exam: GENERAL: Patient in no acute distress. HEENT: Head is atraumatic, normocephalic. EOM's intact. Facies symmetric. No perioral cyanosis. NECK: No JVD. JVP is at the level of the clavicle sitting upright. Carotid upstrokes are + 2 bilaterally. No bruits are noted. CHEST/LUNGS: Clear to auscultation throughout all lung loyd. No wheezes, rales, or crackles. CVS: S1 and S2 are regular without murmurs, gallops, or rubs. PMI is nondisplaced. No lifts, heaves, or thrills. No abdominal aortic or renal bruits. ABDOMINAL EXAM: Bowel sounds are present. No masses, organomegaly, or tenderness. EXTREMITIES: No clubbing or cyanosis. No edema. Intact radial pulses bilaterally. Right heel wound covered, wound vac in place. NEUROLOGIC EXAM: Patient is awake, alert, and oriented. Pleasant and cooperative. Answers questions appropriately. Speech is clear. DERMATOLOGIC EXAM: Erythematous patchy eruption of the upper thighs, gluteal folds and cleft, and perineum with erythematous satellite maculopapular lesions Results & Data Results & Data ([facility]) Vital Signs (Past 12 Hours) Vital Signs Temp Pulse Resp BP Pulse Ox 05/27/20 07:30 36.6 C 94 H 18 130/84 98 Laboratory Results Laboratory Results - last 24 hr 05/26/20 05/26/20 05/26/20 11:48 17:15 20:40 WBC RBC Hgb Hct MCV MCH MCHC RDW Std Deviation RDW Coeff of Mau Plt Count MPV Immature Gran % (Auto) Neut % (Auto) Lymph % (Auto) [place] % (Auto) Eos % (Auto) Baso % (Auto) Neut # (Auto) Lymph # (Auto) [place] # (Auto) Eos # (Auto) Baso # (Auto) Immature Gran # (Auto) ESR Sodium Potassium Chloride Carbon Dioxide Anion Gap BUN Creatinine Est Cr Clr Drug Dosing Est GFR ( Amer) Est GFR (Non-Af Amer) BUN/Creatinine Ratio Glucose POC Glucose 263 H 245 H 331 H* Calcium Total Bilirubin AST ALT Alkaline Phosphatase C-Reactive Protein Total Protein Albumin Globulin Albumin/Globulin Ratio 05/26/20 05/27/20 05/27/20 20:42 00:14 04:13 WBC RBC Hgb Hct MCV MCH MCHC RDW Std Deviation RDW Coeff of Mau Plt Count MPV Immature Gran % (Auto) Neut % (Auto) Lymph % (Auto) [place] % (Auto) Eos % (Auto) Baso % (Auto) Neut # (Auto) Lymph # (Auto) [place] # (Auto) Eos # (Auto) Baso # (Auto) Immature Gran # (Auto) ESR Sodium Potassium Chloride Carbon Dioxide Anion Gap BUN Creatinine Est Cr Clr Drug Dosing Est GFR ( Amer) Est GFR (Non-Af Amer) BUN/Creatinine Ratio Glucose POC Glucose 346 H* 252 H 122 H Calcium Total Bilirubin AST ALT Alkaline Phosphatase C-Reactive Protein Total Protein Albumin Globulin Albumin/Globulin Ratio 05/27/20 05/27/20 05/27/20 05:42 05:42 05:43 WBC 6.07 RBC 3.25 L Hgb 9.1 L Hct 27.5 L MCV 84.6 MCH 28.0 MCHC 33.1 RDW Std Deviation 37.7 RDW Coeff of Mau 12.1 Plt Count 290 MPV 8.6 Immature Gran % (Auto) 0.5 Neut % (Auto) 62.4 Lymph % (Auto) 22.6 [place] % (Auto) 10.2 Eos % (Auto) 3.8 Baso % (Auto) 0.5 Neut # (Auto) 3.79 Lymph # (Auto) 1.37 [place] # (Auto) 0.62 H Eos # (Auto) 0.23 Baso # (Auto) 0.03 Immature Gran # (Auto) 0.03 H ESR 80 H Sodium 136 Potassium 4.1 Chloride 104 Carbon Dioxide 29 Anion Gap 3.0 BUN 18 Creatinine 0.93 Est Cr Clr Drug Dosing 87.6 Est GFR ( Amer) 100.9 Est GFR (Non-Af Amer) 87.1 BUN/Creatinine Ratio 18.9 Glucose 99 POC Glucose Calcium 9.3 Total Bilirubin 0.2 AST 16 ALT 24 Alkaline Phosphatase 74 C-Reactive Protein 7.78 H Total Protein 7.5 Albumin 1.9 L Globulin 5.6 H Albumin/Globulin Ratio 0.3 L 05/27/20 07:28 WBC RBC Hgb Hct MCV MCH MCHC RDW Std Deviation RDW Coeff of Mau Plt Count MPV Immature Gran % (Auto) Neut % (Auto) Lymph % (Auto) [place] % (Auto) Eos % (Auto) Baso % (Auto) Neut # (Auto) Lymph # (Auto) [place] # (Auto) Eos # (Auto) Baso # (Auto) Immature Gran # (Auto) ESR Sodium Potassium Chloride Carbon Dioxide Anion Gap BUN Creatinine Est Cr Clr Drug Dosing Est GFR ( Amer) Est GFR (Non-Af Amer) BUN/Creatinine Ratio Glucose POC Glucose 179 H Calcium Total Bilirubin AST ALT Alkaline Phosphatase C-Reactive Protein Total Protein Albumin Globulin Albumin/Globulin Ratio Medications Administered Active Medications Generic Name Dose Route Start Last Admin Trade Name Freq PRN Reason Stop Dose Admin Acetaminophen 650 mg 05/16/20 16:11 05/21/20 14:06 Acetaminophen 325 Mg Tab PO 06/15/20 16:10 650 mg Q4H PRN Administration pain/fever Hydrocodone Bitart/Acetaminophen 2 tab 05/22/20 10:26 05/27/20 11:19 Hydrocodone/Acetamophen 5/325mg Tab PO 06/04/20 16:03 2 tab Q4H PRN Administration Pain Al Hydrox/Mg Hydrox/Simethicone 30 ml 05/16/20 16:11 Aluminum/Magnesium Susp 30 Ml Udc PO 06/15/20 16:10 Q6H PRN Dyspepsia Aspirin 81 mg 05/17/20 09:00 05/27/20 08:34 Aspirin 81 Mg Ectab PO 06/16/20 08:59 81 mg DAILY AKUA Administration Atorvastatin Calcium 40 mg 05/17/20 09:00 05/27/20 08:34 Atorvastatin 40 Mg Tab PO 06/16/20 08:59 40 mg QAM AKUA Administration Dextrose 25 - 50 ml 05/16/20 16:11 Dextrose 50% 50 Ml Syringe IV 06/15/20 16:10 UD PRN Hypoglycemia Protocol Protocol Enoxaparin Sodium 40 mg 05/17/20 15:30 05/27/20 08:34 Enoxaparin Inj 40 Mg/0.4 Ml Syr SQ 06/16/20 15:29 40 mg QAM AKUA Administration Gabapentin 100 mg 05/21/20 21:00 05/27/20 08:34 Gabapentin 100 Mg Cap PO 06/20/20 20:59 100 mg TID AKUA Administration Glucagon 1 mg 05/16/20 16:11 Glucagon For Inj 1 Mg Vial SQ 06/15/20 16:10 UD PRN Hypoglycemia Protocol Protocol Glucose 4 - 8 tabs 05/16/20 16:11 Glucose 10 Tabs/Tube PO 06/15/20 16:10 UD PRN Hypoglycemia Protocol Protocol Glucose 15 - 30 gm 05/16/20 16:11 Glucose 40% Gel 15 Gm Tube PO 06/15/20 16:10 UD PRN Hypoglycemia Protocol Protocol Heparin Sodium (Beef Lung) 5 ml 05/26/20 23:00 05/27/20 00:29 Heparin 10 Unit/Ml 5 Ml Flush FLUSH 06/25/20 22:59 5 ml PRN PRN Administration Flush Hydroxyzine HCl 50 mg 05/21/20 12:11 05/21/20 14:03 Hydroxyzine Hcl 25 Mg Tab PO 06/20/20 12:10 50 mg Q6H PRN Administration Anxiety Piperacillin Sod/Tazobactam 120 mls @ 30 mls/hr 05/17/20 20:00 05/27/20 08:11 Sod 4.5 gm/ Dextrose IV 06/28/20 19:59 Infused Q8H AKUA Infusion Protocol Insulin Aspart 0 units 05/27/20 09:00 05/27/20 08:44 Insulin Aspart 100 Units/Ml Vial SC 06/26/20 08:59 34 units ACHS AKUA Administration Insulin Glargine 35 units 05/27/20 09:00 05/27/20 08:31 Insulin Glargine Solostar 100 Units/Ml 3 Ml Pen SC 06/26/20 08:59 35 units BID AKUA Administration Lisinopril 5 mg 05/17/20 09:00 05/27/20 08:34 Lisinopril 5 Mg Tab PO 06/16/20 08:59 5 mg QAM AKUA Administration Melatonin 6 mg 05/18/20 20:45 05/20/20 23:55 Melatonin 3 Mg Tab PO 06/17/20 20:44 6 mg HS PRN Administration Sleep Miscellaneous 15 - 30 gm 05/16/20 16:11 Carbohydrates For Hypoglycemia PO 06/15/20 16:10 UD PRN Hypoglycemia Protocol Miscellaneous Information 1 ea 05/16/20 10:04 Piperacill/Tazobac Consult Active N/A 06/15/20 10:03 UD PRN Consult Miscellaneous Information 1 ea 05/17/20 15:27 Pharmacy Glycemic Mgmt Consult N/A 06/16/20 15:26 UD PRN Consult Ondansetron HCl 4 mg 05/16/20 16:11 Ondansetron Inj 2 Mg/Ml 2 Ml Vial IV 06/15/20 16:10 Q6H PRN Nausea Polyethylene Glycol 17 gm 05/16/20 16:11 Polyethylene (Miralax) 17 Gm Pack PO 06/15/20 16:10 DAILY PRN Constipation PG Care Time/CCT Total # of Minutes Spent Total Time Spent with Patient: Total time spent is greater than 50% in coordination of care (as documented) at patient's floor/unit and/or counseling patient:20 Coding Level of Care Code 92460 Subseq Hosp Care Lvl 2 Diagnoses Osteomyelitis M86.9 Dermatophytosis B35.9
--- NOTE | 2020-05-27 11:50 | Pharmacy Report ---
Glycemic Control Progress Note - Date of Service May 27, 2020 - Scope Glycemic Pharmacist consulted for glycemic control to write orders per [facility] inpatient glycemic control protocol. - Objective Accuchecks BSG(last 24 hours):: 05/26/20 05/26/20 05/26/20 11:48 17:15 20:40 Glucose POC Glucose 263 H 245 H 331 H* 05/26/20 05/27/20 05/27/20 20:42 00:14 04:13 Glucose POC Glucose 346 H* 252 H 122 H 05/27/20 05/27/20 05:42 07:28 Glucose 99 POC Glucose 179 H HbA1c:: Hemoglobin A1c 12.5 % (4.5-5.6) H 05/17/20 05:19 - Recent Pertinent Medications The patient is currently receiving: * Basal insulin: Lantus [] units every [] hours * Correctional Insulin: Novolog Correction per scale ACHS Goal Range: Low [] mg/dL - High [] mg/dL Correction Factor: [] mg/dL/unit * Prandial insulin: Per carb ratio of 1 unit per [] grams CHO consumed * Oral Agents: - Outpatient Anti-Diabetic Meds NOT FILLED - Assessment & Plan ASSESSMENT: * See progress note from 05/18/20 for more background info, in short: * Pt receiving SQ basal bolus insulin regimen for hyperglycemia secondary to baseline DM (outpatient regimen on hold). Patient with infection receiving IV Ancef. * Patient is currently receiving an average of 200 units of insulin per day * 60 units of basal insulin * 140 units of prandial/correctional insulin * BSGs ranging 209 - 346 mg/dl over the past 24hrs * Changes needed to insulin regimen: * AM Fasting BSG = 99 mg/dl. This is in goal range for patient based on inpatient targets and co-morbidities. The PRP's blood glucose was 99 mg/dL vs 179 mg/dL on fingerstick. Patient received additional 13 units at midnight therefore will add 10 units to basal to make 35 units BID. Overnight checks again to ensure 24 hour coverage. Yesterday basal insulin increased by 30%, plan for additional 16.6% * Post-prandial BSGs were not controlled yesterday. Second shift tightened CR to 2.5 -- will tighten CF to 8. * Total daily dose = >200 units. Titrating upwards significantly. PLAN FOR INPATIENT GLYCEMIC CONTROL: * INCREASING Lantus to 35 units SQ BID * TIGHTENING correction factor to 8 mg/dl/unit * TIGHTENING carb ratio to 1 unit per 2.5 grams CHO consumed * Continuing goal range of Low 110 mg/dL - High 140 mg/dL * Please note that the plan above was derived based on current level of insulin resistance and hospital stress. These recommendations are appropriate for inpatient admission only. Plan of care upon discharge will need to be reassessed to avoid potential outpatient hypo/hyperglycemia. Thank you.
[2020-05-27] MEDS: MICONAZOLE NITRATE 2% CR 30 GM TUBE EXT SCH ×2 (12:36→20:29)
[2020-05-28] MEDS: INSULIN ASPART 100 UNITS/ML VIAL SC SCH ×6 (00:14→21:01)
[2020-05-28] MEDS: PIPERACILLIN/TAZOBACTAM 4.5 GM in DEXTROSE 5% 100 ML IV SCH ×3 (04:07→20:19)
[2020-05-28] MEDS: HYDROCODONE/ACETAMOPHEN 5/325MG TAB PO PRN ×2 (07:47→23:49)
[2020-05-28] MEDS ORDERED: INSULIN ASPART 100 UNITS/ML VIAL SC ONE (08:00)
[2020-05-28] MEDS: ATORVASTATIN 40 MG TAB PO SCH (08:32)
[2020-05-28] MEDS: INSULIN GLARGINE SOLOSTAR 100 UNITS/ML 3 ML PEN SC SCH ×2 (08:32→20:59)
[2020-05-28] MEDS: ASPIRIN 81 MG ECTAB PO SCH (08:32)
[2020-05-28] MEDS: GABAPENTIN 100 MG CAP PO SCH ×3 (08:33→20:20)
[2020-05-28] MEDS: ENOXAPARIN INJ 40 MG/0.4 ML SYR SQ SCH (08:33)
[2020-05-28] MEDS: lisinopril 5 MG TAB PO SCH (08:33)
[2020-05-28] MEDS: MICONAZOLE NITRATE 2% CR 30 GM TUBE EXT SCH ×2 (08:36→20:20)
--- NOTE | 2020-05-28 09:06 | Pharmacy Report ---
Glycemic Control Progress Note - Date of Service May 28, 2020 - Scope Glycemic Pharmacist consulted for glycemic control to write orders per [facility] inpatient glycemic control protocol. - Objective Accuchecks BSG(last 24 hours):: 05/27/20 05/27/20 05/27/20 11:55 17:09 21:05 POC Glucose 284 H 106 H 181 H 05/28/20 05/28/20 05/28/20 00:10 04:06 08:20 POC Glucose 197 H 141 H 164 H HbA1c:: Hemoglobin A1c 12.5 % (4.5-5.6) H 05/17/20 05:19 - Recent Pertinent Medications The patient is currently receiving: * Basal insulin: Lantus 35 units every 12 hours * Correctional Insulin: Novolog Correction per scale ACHS Goal Range: Low 110 mg/dL - High 140 mg/dL Correction Factor: 8 mg/dL/unit * Prandial insulin: Per carb ratio of 1 unit per 2.5 grams CHO consumed - Outpatient Anti-Diabetic Meds n/a - Assessment & Plan ASSESSMENT: * See progress note from 05/18/20 for more background info, in short: * Pt receiving SQ basal bolus insulin regimen for hyperglycemia secondary to baseline DM (outpatient regimen on hold). * Patient is currently receiving an average of 208 units of insulin per day * 70 units of basal insulin * 138 units of prandial/correctional insulin * BSGs ranging 106 - 284 mg/dl over the past 24hrs * Changes needed to insulin regimen: * AM Fasting BSG = 164 mg/dl. This is slightly above goal range for patient based on inpatient targets and co-morbidities. Increase basal insulin by extra amount patient received at midnight (CF only as patient ate at midnight) * Post-prandial BSGs are elevated. Correction factor appears appropriate but will tighten CR. * Total daily dose = ~200-220 units. Increased basal insulin for a more 50/50 split plus tightened CR. PLAN FOR INPATIENT GLYCEMIC CONTROL: * INCREASING Lantus to 40 units SQ BID * Continuing correction factor of 8 mg/dl/unit * TIGHTENING carb ratio to 1 unit per 2 grams CHO consumed * Continuing goal range of Low 110 mg/dL - High 140 mg/dL * Please note that the plan above was derived based on current level of insulin resistance and hospital stress. These recommendations are appropriate for inpatient admission only. Plan of care upon discharge will need to be reassessed to avoid potential outpatient hypo/hyperglycemia. Thank you.
--- NOTE | 2020-05-28 13:14 | Hospitalist Progress Note ---
Date of Service May 28, 2020 Assessment & Plan (1) Diabetic ulcer of right heel: Wound care and ortho following. No surgical intervention planned. Veriflo wound VAC in place. If VAC continues to default, would d/c the VAC and dress with Aquacel AG as the patient is pending possible discharge to [facility] tomorrow. Regular non-irrigating wound VAC can be placed at [facility] upon discharge if the patient is discharged tomorrow. Continue to offload with a waffle boot. Patient will need regular weekly follow-up with the wound clinic upon discharge. (2) Osteomyelitis: Continue 6 weeks of IV Zosyn. Patient is a potential HBO candidate. Can explore as an outpatient. (3) Type II diabetes mellitus, uncontrolled: Last HgbA1C was 12.5% on 05-17-20. Pharmacy Glycemic management consulted. Will need Metformin 500 XR and insulin at discharge. (4) CAD (coronary artery disease): ASA restarted. Continue Lisinopril. Continue atorvastatin 40mg PO daily. Could consider initiating a beta alysia. BP stable at 119/73. (5) Dermatophytosis: Continue miconazole cream 2% to buttocks and groin. (6) DVT prophylaxis: Continue Enoxaparin. Admission and Anticipated Discharge Date Admission Date: May 16, 2020 Possible d/c to [facility] on 05-29-20. Will need wound VAC placed at [facility] and f/u scheduled with the [facility] wound clinic. Subjective 64-year-old male admitted for diabetic ulcer right heel with osteomyelitis. He has a Veriflo wound VAC in place. Per nursing, this has been faulting and saying the tubing is kinked frequently. No kinks can be found in the tubing. He remains on Zosyn. Patient has no new complaints today. Review of Systems Constitutional: no fever and no chills Eyes: no worsening vision Ear, Nose, Mouth, Throat: no dizziness Respiratory: no dyspnea Cardiovascular: no chest pain Gastrointestinal: no abdominal pain, no nausea and no vomiting Psychiatric: no confusion Physical Exam Physical Exam: Temp Pulse Resp BP Pulse Ox 36.7 C 103 H 16 119/73 97 05/28/20 07:51 05/28/20 07:51 05/28/20 07:51 05/28/20 07:51 05/28/20 07:51 Patient is afebrile. Vital signs stable. Constitutional: average body habitus; no acute distress ENMT: Ears: no hearing impairment Neck: trachea midline, no thyromegaly Respiratory: normal respiratory effort, lungs clear to auscultation Cardiovascular: RRR, no murmur, no edema Gastrointestinal (Abdomen): Inspection/Auscultation: normal bowel sounds Percussion/Palpation: abdomen soft; abdomen nontender Psychiatric: A+Ox3, euthymic affect Lymphatic: no cervical lymphadenopathy Results & Data Results & Data ([facility]) Vital Signs (Past 12 Hours) Vital Signs Temp Pulse Resp BP Pulse Ox 05/28/20 07:51 36.7 C 103 H 16 119/73 97 PG Care Time/CCT Total # of Minutes Spent Total Time Spent with Patient: Total time spent is greater than 50% in coordination of care (as documented) at patient's floor/unit and/or counseling patient: Coding Level of Care Code 62337 Subseq Hosp Care Lvl 2 History Expanded Problem Focused Exam Expanded Problem Focused Medical Decision Making Moderate Complexity Diagnoses Diabetic ulcer of right heel E11.621; L97.419 Osteomyelitis M86.9 Type II diabetes mellitus, uncontrolled E11.65 CAD (coronary artery disease) I25.10 Associated angina: without angina Coronary Disease-Associated Artery/Lesion type: [place] artery [place] vs. transplanted heart: [place] heart Dermatophytosis B35.9 DVT prophylaxis Z29.9 (1) CAD (coronary artery disease) Associated angina: without angina Coronary Disease-Associated Artery/Lesion type: [place] artery [place] vs. transplanted heart: [place] heart Qualified Code(s): I25.10 - Atherosclerotic heart disease of [place] coronary artery without angina pectoris
[2020-05-29] MEDS: PIPERACILLIN/TAZOBACTAM 4.5 GM in DEXTROSE 5% 100 ML IV SCH ×3 (04:24→20:23)
[2020-05-29] MEDS: INSULIN ASPART 100 UNITS/ML VIAL SC SCH ×4 (09:04→20:28)
[2020-05-29] MEDS: INSULIN GLARGINE SOLOSTAR 100 UNITS/ML 3 ML PEN SC SCH ×2 (09:07→21:05)
[2020-05-29] MEDS: GABAPENTIN 100 MG CAP PO SCH ×3 (09:08→20:24)
[2020-05-29] MEDS: ATORVASTATIN 40 MG TAB PO SCH (09:08)
[2020-05-29] MEDS: ASPIRIN 81 MG ECTAB PO SCH (09:08)
[2020-05-29] MEDS: lisinopril 5 MG TAB PO SCH (09:08)
[2020-05-29] MEDS: ENOXAPARIN INJ 40 MG/0.4 ML SYR SQ SCH (09:09)
[2020-05-29] MEDS: MICONAZOLE NITRATE 2% CR 30 GM TUBE EXT SCH ×2 (09:09→20:44)
[2020-05-29] MEDS: HYDROCODONE/ACETAMOPHEN 5/325MG TAB PO PRN (09:12)
--- NOTE | 2020-05-29 09:33 | Hospitalist Progress Note ---
Date of Service May 29, 2020 Assessment & Plan (1) Diabetic ulcer of right heel: Mr. Jean is a 64 yo M with a PMHx of type II diabetes mellitus (off all pharmacotherapy for past two years) who presented for evaluation of a right heel ulcer, found to have underlying osteomyelitis on imaging. Currently awaiting placement. - wound care following - no surgical debridement planned - Regular non-irrigating wound VAC can be placed at [facility] upon discharge - Continue to offload with a waffle boot. - Patient will need regular weekly follow-up with the wound clinic upon discharge (2) Osteomyelitis: - secondary to overlying infected skin ulcer - patient will need a total of 6 weeks of IV zosyn; PICC line in place - patient may be a hyperbaric oxygen therapy candidate - can explore as outpatient - hemodynamically stable, no signs of sepsis (3) Type II diabetes mellitus, uncontrolled: - Last HgbA1C was 12.5% on 05-17-20 - Pharmacy managing insulin. Currently getting Lantus insulin 40 units, twice daily with correction factor of 8, 1:2 carb unit ratio - will initiate Metformin 500mg XR today - carb consistent, DM 2 diet - provided educational counseling today on illness, lifestyle modifications (4) CAD (coronary artery disease): - Hx of triple coronary bypass surgery in 2003 - continue ASA 81mg daily - continue Lisinopril 5mg, daily - continue atorvastatin 40mg PO daily - will initiate beta alysia today, unclear why patient was not on one prior to admission (5) Dermatophytosis: - Continue miconazole cream 2% to buttocks and groin Diet: carb consistent, DMII, Heart Healthy Dispo: Med/surg, CM following, working towards rehab placement DVT ppx: Enoxaparin CODE: DNR/DNI Admission and Anticipated Discharge Date Admission Date: May 16, 2020 Subjective No acute events overnight. He is feeling well today. We had a long conversation about his diabetes. He said he was originally diagnosed in 2000, at which time he was started on a pill for it. He said he later progressed to needing insulin therapy. He actually saw an malter operator in [facility] for his diabetes at one point. He suffered a heart attack and had to have a triple bypass by an int erventional straightener gun parts at [facility] in 2003. He lost his health insurance 2 years ago when he retired - that is when he stopped using his insulin. he could not afford the out of pocket costs. He is amenable to using insulin and metformin after discharge. Review of Systems Review of Systems: All systems reviewed & are unremarkable except as noted in HPI & below Physical Exam Constitutional: WD/WN, vitals as above cooperative; no acute distress Eyes: + anicteric sclerae ENMT: external ear and nose normal, oropharynx normal Neck: normal visual inspection and trachea midline Respiratory: normal respiratory effort, lungs clear to auscultation Cardiovascular: Rate/Rhythm: regular rate and regular rhythm Heart Sounds: + murmur (systolic ejection murmur appreciated in aortic area) Vessels: posterior tibial pulses present Extremities: + vascular access device (PICC line in place, LUE) Gastrointestinal (Abdomen): normal bowel sounds, soft, nontender, no hepatosplenomegaly Musculoskeletal: R foot with clean, dry bandage in place. No visible blood. Wound Vac in place. Waffle boot on R. Skin: + scar (chest wall) Psychiatric: A+Ox3, euthymic affect Results & Data Results & Data ([facility]) Vital Signs (Past 12 Hours) Vital Signs Temp Pulse Resp BP Pulse Ox 05/29/20 07:37 36.6 C 87 17 145/77 H 98 05/28/20 23:29 37.0 C 95 H 16 136/78 97 Resident Activity Tracking Resident Involvement: Resident Care Provided Care Provided: Adult Hospital Medicine (1) CAD (coronary artery disease) Associated angina: without angina Coronary Disease-Associated Artery/Lesion type: [place] artery [place] vs. transplanted heart: [place] heart Qualified Code(s): I25.10 - Atherosclerotic heart disease of [place] coronary artery without angina pectoris
--- NOTE | 2020-05-29 13:31 | Pharmacy Report ---
Pharmacy Glycemic Short Note 2 - Date of Service May 29, 2020 - Glycemic Short BSG Results (Last 24 hours): 05/28/20 05/28/20 05/29/20 17:18 20:46 08:16 POC Glucose 149 H 169 H 111 H 05/29/20 12:07 POC Glucose 81 OUTPATIENT ANTIDIABETIC REGIMEN: * n/a - Pt did not fill insulin Rx from admission * A1c = 10.7% in January 2020; now up to 12.5% 05/17/20 ASSESSMENT: * Mr Jean has been receiving ~200 units of insulin daily for the past several days. * Basal insulin dose has been increased gradually to lend to more of a 50/50 basal/bolus distribution. * BSGs are much improved today. * Metformin started, per provider, once daily with dinner. * Will back off on carb coverage some at this point, and reduce basal insulin dose slightly, as fasting BSGs have improved markedly. PLAN FOR INPATIENT GLYCEMIC CONTROL: * Metformin 500mg PO qPM * Basal insulin: * Lantus 38 units SQ BID * Bolus insulin: * NovoLog per scale ACHS or Q6hrs while NPO * Goal Range: Low 110 mg/dL - High 140 mg/dL * Correction Factor: 8 mg/dL/unit * Nutritional / Prandial insulin per carb ratio of 1 unit per 3 grams CHO consumed PLAN FOR DISCHARGE: * A1c = 12.5 % on 05/17/20 * Goal A1c = <7 % based on age and comorbidities * A1c is greater than or equal to 10% consider triple therapy with metformin + basal insulin + (GLP1-RA OR prandial insulin). * Metformin should be started at the time type 2 diabetes is diagnosed unless there are contraindications. Metformin is effective and safe, is inexpensive, and may reduce risk of cardiovascular events and . * B12 supplementation may be necessary with snf metformin use * Metformin XR 500mg PO daily with evening meal. Typically the XR formulation of metformin is better tolerated than the immediate release formulation. Continue to titrate metformin dosing upwards as recommended. Dosage increases should be made in increments of 500 mg weekly, up to 2,000 mg/day PO, given in divided doses. Doses above 2000 mg/day may be better tolerated if divided and given 3 times per day with meals. Max: 2,550 mg/day PO, in divided doses * Insulin regimen will depend on insurance coverage. * Could consider NPH + Regular insulin or pre-mixed NPH/Regular 70/30 insulin if cost is an issue. Total daily dose ~ 70-80 units/day when not acutely ill, but will update this closer to discharge. * If cost is not an issue, recommend glargine + NovoLog; Total daily dose ~ 70-80 units/day when not acutely ill, but will update this closer to discharge. * Support Patient Self-Management * Healthy Lifestyle (diet, exercise, and smoking cessation) * Disease self-management (SMBG) * Prevention of complications (BP, Lipid goals, Immunizations) * Consider outpatient Diabetes Self-Management Education & Support
[2020-05-29] MEDS: METOPROLOL SUCC 25MG EXT REL TAB PO SCH (14:17)
--- NOTE | 2020-05-29 16:32 | Billing Data ---
Date of Service May 29, 2020 Coding Level of Care Code 47025 Subseq Hosp Care Lvl 3
[2020-05-29] MEDS: metFORMIN HCL ER 500 MG TABCR PO SCH (18:42)
[2020-05-30] MEDS: PIPERACILLIN/TAZOBACTAM 4.5 GM in DEXTROSE 5% 100 ML IV SCH ×3 (04:28→19:37)
[2020-05-30 06:32] LABS: Creatinine Clr Calc Pharmacy 80.7 ml/min; Est GFR (African American) 91.3; Est GFR (Non-African American) 78.8
[2020-05-30] MEDS: GABAPENTIN 100 MG CAP PO SCH ×3 (08:43→20:51)
[2020-05-30] MEDS: METOPROLOL SUCC 25MG EXT REL TAB PO SCH (08:44)
[2020-05-30] MEDS: ASPIRIN 81 MG ECTAB PO SCH (08:44)
[2020-05-30] MEDS: INSULIN GLARGINE SOLOSTAR 100 UNITS/ML 3 ML PEN SC SCH ×2 (08:44→20:52)
[2020-05-30] MEDS: ATORVASTATIN 40 MG TAB PO SCH (08:44)
[2020-05-30] MEDS: lisinopril 5 MG TAB PO SCH (08:44)
[2020-05-30] MEDS: MICONAZOLE NITRATE 2% CR 30 GM TUBE EXT SCH ×2 (08:45→20:54)
[2020-05-30] MEDS: ENOXAPARIN INJ 40 MG/0.4 ML SYR SQ SCH (08:45)
[2020-05-30] MEDS: INSULIN ASPART 100 UNITS/ML VIAL SC SCH ×4 (08:48→20:54)
[2020-05-30] MEDS: HYDROCODONE/ACETAMOPHEN 5/325MG TAB PO PRN (08:51)
--- NOTE | 2020-05-30 11:49 | Hospitalist Progress Note ---
Date of Service May 30, 2020 Assessment & Plan (1) Diabetic ulcer of right heel: Mr. Jean is a 64 yo M with a PMHx of type II diabetes mellitus (off all pharmacotherapy for past two years) who presented for evaluation of a right heel ulcer, found to have underlying osteomyelitis on imaging. Currently awaiting acute rehab placement. - wound care following - no surgical debridement planned - wound vac fell off yesterday, plan to replace tomorrow. - Regular non-irrigating wound VAC can be placed at [facility] upon discharge - Continue to offload with a waffle boot. - Patient will need regular weekly follow-up with the wound clinic upon discharge (2) Osteomyelitis: - secondary to overlying infected skin ulcer - patient will need a total of 6 weeks of IV zosyn; PICC line in place - patient may be a hyperbaric oxygen therapy candidate - can explore as outpatient - hemodynamically stable, no signs of sepsis (3) Type II diabetes mellitus, uncontrolled: - Last HgbA1C was 12.5% on 05-17-20 - Pharmacy managing insulin. Currently getting Lantus insulin 40 units, twice daily with correction factor of 8, 1:2 carb unit ratio - continue Metformin 500mg XR, daily - carb consistent, DM 2 diet - continued educational counseling today on illness, lifestyle modifications (4) CAD (coronary artery disease): - Hx of triple coronary bypass surgery in 2003 - continue ASA 81mg daily - continue Lisinopril 5mg, daily - continue atorvastatin 40mg PO daily - continue metoprolol succinate 25mg qAM (5) Dermatophytosis: - Continue miconazole cream 2% to buttocks and groin Diet: carb consistent, DMII Dispo: Med/surg, CM following, working towards rehab placement, need to complete health insurance application DVT ppx: Enoxaparin CODE: DNR/DNI Admission and Anticipated Discharge Date Admission Date: May 16, 2020 Supervising Physician Co-Signing Physician Notes I personally examined the patient and verified all bustos points of history and exa m, discussed case, and agree with decision making with Dr Nazario. feeling about the same. getting more aware of critical importance of diet in the control of DM2 - to the point that even here in the hospital he's making sure there's no simple/starchy carbs on his tray. still working on getting him to rehab vitals noted nad heent nc at mmm breathing unlabored no accessory muscle use skin no rashes no pallor or icterus DM foot ulcer w osteomyelitis - continue local wound care and zosyn, work on rehab uncontrolled DM - educated extensively and reiterated same, insulin management, lifestyle change (he seems to be taking this to heart quickly) CAD - asymptomatic at this time. med management, lifestyle change Subjective No acute events overnight. Eating well. Trying to maintain low carbohydrate intake. Doing well today - wound vac fell off yesterday. Will have it replaced tomorrow. He is unsure if his was able to complete his health insurance application. He does know she recently fell down the stairs in their basement and is currently, "laid up." Review of Systems Review of Systems: All systems reviewed & are unremarkable except as noted in HPI & below Physical Exam Constitutional: WD/WN, vitals as above cooperative; no acute distress Eyes: + anicteric sclerae ENMT: external ear and nose normal, oropharynx normal Neck: normal visual inspection and trachea midline Respiratory: normal respiratory effort, lungs clear to auscultation Cardiovascular: Rate/Rhythm: regular rate and regular rhythm Heart Sounds: + murmur (systolic ejection murmur appreciated in aortic area) Vessels: posterior tibial pulses present Extremities: + vascular access device (PICC line in place, LUE) Gastrointestinal (Abdomen): normal bowel sounds, soft, nontender, no hepatosplenomegaly Skin: no rashes, warm and dry + scar (chest wall) no evidence of cellulitis on R LE Psychiatric: A+Ox3, euthymic affect Results & Data Results & Data ([facility]) Vital Signs (Past 12 Hours) Vital Signs Temp Pulse Resp BP Pulse Ox 05/30/20 07:38 36.6 C 80 18 134/77 95 Resident Activity Tracking Resident Involvement: Resident Care Provided Care Provided: Adult Hospital Medicine (1) CAD (coronary artery disease) Associated angina: without angina Coronary Disease-Associated Artery/Lesion type: [place] artery [place] vs. transplanted heart: [place] heart Qualified Cod e(s): I25.10 - Atherosclerotic heart disease of [place] coronary artery without angina pectoris
[2020-05-30] MEDS: CEROVITE ADV FORMULA TAB PO SCH (13:40)
--- NOTE | 2020-05-30 16:36 | Billing Data ---
Date of Service May 30, 2020 Coding Level of Care Code 24618 Subseq Hosp Care Lvl 3
[2020-05-30] MEDS: metFORMIN HCL ER 500 MG TABCR PO SCH (17:56)
[2020-05-31] MEDS: PIPERACILLIN/TAZOBACTAM 4.5 GM in DEXTROSE 5% 100 ML IV SCH (03:31)
[2020-05-31] MEDS: INSULIN ASPART 100 UNITS/ML VIAL SC SCH ×4 (09:04→21:16)
[2020-05-31] MEDS: CEROVITE ADV FORMULA TAB PO SCH (09:05)
[2020-05-31] MEDS: ATORVASTATIN 40 MG TAB PO SCH (09:05)
[2020-05-31] MEDS: lisinopril 5 MG TAB PO SCH (09:05)
[2020-05-31] MEDS: METOPROLOL SUCC 25MG EXT REL TAB PO SCH (09:05)
[2020-05-31] MEDS: GABAPENTIN 100 MG CAP PO SCH ×3 (09:05→21:17)
[2020-05-31] MEDS: ASPIRIN 81 MG ECTAB PO SCH (09:05)
[2020-05-31] MEDS: ENOXAPARIN INJ 40 MG/0.4 ML SYR SQ SCH (09:06)
[2020-05-31] MEDS: MICONAZOLE NITRATE 2% CR 30 GM TUBE EXT SCH ×2 (09:06→21:17)
[2020-05-31] MEDS: INSULIN GLARGINE SOLOSTAR 100 UNITS/ML 3 ML PEN SC SCH ×2 (09:06→21:15)
[2020-05-31] MEDS: HYDROCODONE/ACETAMOPHEN 5/325MG TAB PO PRN (09:07)
--- NOTE | 2020-05-31 09:28 | Pharmacy Report ---
Pharmacy Glycemic Short Note 2 - Date of Service May 31, 2020 - Glycemic Short BSG Results (Last 24 hours): 05/30/20 05/30/20 05/30/20 12:04 17:15 20:54 POC Glucose 135 H 104 H 122 H 05/31/20 08:11 POC Glucose 179 H OUTPATIENT ANTIDIABETIC REGIMEN: * n/a - Pt did not fill insulin Rx from admission * A1c = 10.7% in January 2020; now up to 12.5% 05/17/20 ASSESSMENT: * Mr Jean received 122 units of insulin yesterday, with BSGs ranging from 92- 165 mg/dL. * Basal insulin: 76 units * Prandial/Correctional insulin: 46 units * Carb coverage was tightened slightly, which seems to be keeping BSGs well- controlled throughout the day. * No further changes required today. PLAN FOR INPATIENT GLYCEMIC CONTROL: * Metformin 500mg PO qPM * Basal insulin: * Lantus 38 units SQ BID * Bolus insulin: * NovoLog per scale ACHS or Q6hrs while NPO * Goal Range: Low 110 mg/dL - High 140 mg/dL * Correction Factor: 8 mg/dL/unit * Nutritional / Prandial insulin per carb ratio of 1 unit per 2.5 grams CHO consumed PLAN FOR DISCHARGE: * A1c = 12.5 % on 05/17/20 * Goal A1c = <7 % based on age and comorbidities * A1c is greater than or equal to 10% consider triple therapy with metformin + basal insulin + (GLP1-RA OR prandial insulin). * Metformin should be started at the time type 2 diabetes is diagnosed unless there are contraindications. Metformin is effective and safe, is inexpensive, and may reduce risk of cardiovascular events and . 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 Typically the XR formulation of metformin is better tolerated than the immediate release formulation. Continue to titrate metformin dosing upwards as recommended. Dosage increases should be made in increments of 500 mg weekly, up to 2,000 mg/day PO, given in divided doses. Doses above 2000 mg/day may be better tolerated if divided and given 3 times per day with meals. Max: 2,550 mg/day PO, in divided doses * Insulin regimen will depend on insurance coverage. * Could consider NPH + Regular insulin or pre-mixed NPH/Regular 70/30 insulin if cost is an issue. Total daily dose ~ 70-80 units/day when not acutely ill, but will update this closer to discharge. * If cost is not an issue, recommend glargine + NovoLog; Total daily dose ~ 70-80 units/day when not acutely ill, but will update this closer to discharge. * Support Patient Self-Management * Healthy Lifestyle (diet, exercise, and smoking cessation) * Disease self-management (SMBG) * Prevention of complications (BP, Lipid goals, Immunizations) * Consider outpatient Diabetes Self-Management Education & Support
[2020-05-31] MEDS: ERTAPENEM SODIUM 1,000 MG in SODIUM CHLORIDE 0.9% 50 ML IV SCH (11:11)
--- NOTE | 2020-05-31 15:25 | Hospitalist Progress Note ---
Date of Service May 31, 2020 Assessment & Plan (1) Diabetic ulcer of right heel: Mr. Jean is a 64 yo M with a PMHx of type II diabetes mellitus (off all pharmacotherapy for past two years) who presented for evaluation of a right heel ulcer, found to have underlying osteomyelitis on imaging. Currently awaiting acute rehab placement. - wound care following - no surgical debridement planned - wound vac fell off yesterday, plan to replace tomorrow. - Regular non-irrigating wound VAC can be placed at [facility] upon discharge - Continue to offload with a waffle boot. - Patient will need regular weekly follow-up with the wound clinic upon discharge (2) Osteomyelitis: - secondary to overlying infected skin ulcer - patient will need a total of Iv antibiotics; PICC line in place - transitioned from zosyn to ertapenum today (to facilitate discharge planning, once daily dosing preferred over BID). Wound culture did not grow pseudomonas - patient may be a hyperbaric oxygen therapy candidate - can explore as outpatient - hemodynamically stable, no signs of sepsis (3) Type II diabetes mellitus, uncontrolled: - Last HgbA1C was 12.5% on 05-17-20 - Pharmacy managing insulin. Currently getting Lantus insulin 40 units, twice daily with correction factor of 8, 1:2 carb unit ratio - continue Metformin 500mg XR, daily - carb consistent, DM 2 diet - continued educational counseling today on illness, lifestyle modifications (4) CAD (coronary artery disease): - Hx of triple coronary bypass surgery in 2003 - continue ASA 81mg daily - continue Lisinopril 5mg, daily - continue atorvastatin 40mg PO daily - continue metoprolol succinate 25mg qAM (5) Dermatophytosis: - Continue miconazole cream 2% to buttocks and groin Diet: carb consistent, DMII Dispo: Med/surg, CM following, working towards [facility] placement DVT ppx: Enoxaparin CODE: DNR/DNI Admission and Anticipated Discharge Date Admission Date: May 16, 2020 Supervising Physician Co-Signing Physician Notes Resident Physician Supervision Note: I was present with Dr. Megha Nazario during the history and exam. I discussed the case with the resident and agree with the findings and plan as documented in the note. Any exceptions or clarifications are listed here: None this pt was without complaints, he is frustrated and wants to get to the next level at rehab. He is pleased with his wound healing with the Vac. he is in no distress he has no shortness of breath, labored respirations or peripheral edema, he has a dressing on his foot continue antibiotics, change to ertapenem for ease of administration as outpt, continue wound vac and to rehab. Documented By: Arnaldo Jung MD Subjective no acute events overnight. Ambulating some. Wound vac re-placed today. Awaiting [facility] placement Review of Systems Review of Systems: All systems reviewed & are unremarkable except as noted in HPI & below Physical Exam Constitutional: WD/WN, vitals as above cooperative; no acute distress Eyes: + anicteric sclerae ENMT: external ear and nose normal, oropharynx normal Neck: normal visual inspection and trachea midline Respiratory: normal respiratory effort, lungs clear to auscultation Cardiovascular: Rate/Rhythm: regular rate and regular rhythm Heart Sounds: + murmur (systolic ejection murmur appreciated in aortic area) Vessels: posterior tibial pulses present Extremities: + vascular access device (PICC line in place, LUE) Gastrointestinal (Abdomen): normal bowel sounds, soft, nontender, no hepatosplenomegaly Skin: no rashes, warm and dry + scar (chest wall) Psychiatric: A+Ox3, euthymic affect Results & Data Results & Data ([facility]) Vital Signs (Past 12 Hours) Vital Signs Temp Pulse Resp BP Pulse Ox 05/31/20 07:00 36.7 C 78 16 125/70 96 Resident Activity Tracking Resident Involvement: Resident Care Provided Care Provided: Adult Hospital Medicine (1) CAD (coronary artery disease) Associated angina: without angina Coronary Disease-Associated Artery/Lesion type: [place] artery [place] vs. transplanted heart: [place] heart Qualified Code(s): I25.10 - Atherosclerotic heart disease of [place] coronary artery without angina pectoris
--- NOTE | 2020-05-31 16:12 | Billing Data ---
Date of Service May 31, 2020 Coding Level of Care Code 96560 Subseq Hosp Care Lvl 2
[2020-05-31] MEDS: metFORMIN HCL ER 500 MG TABCR PO SCH (17:47)
[2020-06-01] MEDS: INSULIN ASPART 100 UNITS/ML VIAL SC SCH (08:35)
[2020-06-01] MEDS: ENOXAPARIN INJ 40 MG/0.4 ML SYR SQ SCH (08:40)
[2020-06-01] MEDS: ASPIRIN 81 MG ECTAB PO SCH (08:41)
[2020-06-01] MEDS: CEROVITE ADV FORMULA TAB PO SCH (08:41)
[2020-06-01] MEDS: lisinopril 5 MG TAB PO SCH (08:41)
[2020-06-01] MEDS: ATORVASTATIN 40 MG TAB PO SCH (08:41)
[2020-06-01] MEDS: GABAPENTIN 100 MG CAP PO SCH (08:41)
[2020-06-01] MEDS: METOPROLOL SUCC 25MG EXT REL TAB PO SCH (08:41)
[2020-06-01] MEDS: MICONAZOLE NITRATE 2% CR 30 GM TUBE EXT SCH (08:42)
[2020-06-01] MEDS ORDERED: INSULIN GLARGINE SOLOSTAR 100 UNITS/ML 3 ML PEN SC SCH ×2 (09:00→21:00)
--- NOTE | 2020-06-01 09:28 | Discharge Summary ---
Date of Service June 01, 2020 Admission HPI Per Admitting Provider Sumeet Jean is a 64-year-old male with type 2 diabetes and CAD s/p CABG 3V who presents to the ER with right heel ulcer and surrounding erythema. He is here with his daughter who first became aware he had a problem on May 02. She has a picture from a week ago which appears similar to the appearance today. At best estimate he thinks it has been progressing over the last month. Foul smelling. Significant peripheral neuropathy therefore he does not have any heel pain but reports 10/10 right calf pain. No fevers or chills. Only here because of the insistence of his daughter who reports he will getting more help at home to help manage his health needs. He was hospitalized in February this year for a left sided venous ulcer on dorsal aspect of left foot. He never followed up with a PCP or wound care clinic although this fortunately. Once he ran out of his insulin prescription he was given on discharge he stopped further treatment. Previously he was drinking alcohol daily. He reports he has now not drank any alcohol for the last 3-4 weeks. His daughter is concerned he is depressed. Admission Exam Per Admitting Provider Constitutional: well developed and + frail appearing; + not well nourished and no acute distress Eyes: + anicteric sclerae; normal pupil size ENMT: external ear and nose normal, oropharynx normal Ears: no external ear abnormality Nose: no external nose abnormality Neck: trachea midline, no thyromegaly Respiratory: normal respiratory effort, lungs clear to auscultation Cardiovascular: RRR, no murmur, no edema Gastrointestinal (Abdomen): normal bowel sounds, soft, nontender, no hepatosplenomegaly Musculoskeletal: no cyanosis or clubbing, extremities motor strength 5/5 Skin: Unstageable foul smelling ulcer on right heel with full thickness skin breakdown. Achilles tendon appears intact. Painful calf to touch and swellon compared to left side. DP easily palpable but PT pulse unable to palpate. Erythema surrounding and tracking up posterior aspect of distal calf up to mid calf. Neurologic: moves all extremities and awake; not confused Motor/Sensory: + sensory deficit (below knee chronic peripheral neuropathy b/l) Psychiatric: Orientation: alert and oriented x 3 Principal Diagnosis Osteomyelitis Discharge Exam Constitutional WD/WN, vitals as above cooperative; no acute distress Eyes + anicteric sclerae ENMT external ear and nose normal, oropharynx normal Neck normal visual inspection and trachea midline Respiratory normal respiratory effort, lungs clear to auscultation Cardiovascular Rate/Rhythm: regular rate and regular rhythm Heart Sounds: + murmur (systolic ejection murmur appreciated in aortic area) Vessels: posterior tibial pulses present Extremities: + vascular access device (PICC line in place, LUE) Gastrointestinal (Abdomen) normal bowel sounds, soft, nontender, no hepatosplenomegaly Skin no rashes, warm and dry + ulcer (R heel ulcer, vac in place, dry bandage covering) and + scar (chest wall) Psychiatric A+Ox3, euthymic affect Discharge Data Allergies Allergy/AdvReac Type Severity Reaction Status Date / Time No Known Allergies Allergy Unverified 05/16/20 10:40 Consultations 05/16/20 11:59 ED Decision to Admit Stat 05/16/20 13:18 Consult Orthopedic Surgery Routine 05/16/20 21:01 Consult Wound Care Provider Routine 05/19/20 16:18 Consult Infectious Diseases Routine Ordered Studies 05/16/20 12:36 US arterial duplex LE RT Stat US venous doppler LE RT Stat 05/19/20 11:31 ankle RT wo/w con Urgent Diabetes Follow up Diabetes Follow-up Needed for HgbA1c >9% Hospital Course (1) Diabetic ulcer of right heel: Mr. Jean is a 64 yo M with a PMHx of type II diabetes mellitus (off all pharmacotherapy for past two years) who presented for evaluation of a right heel ulcer, found to have underlying osteomyelitis on imaging. Patient discharged in [facility] for inpatient rehab. - wound care following - no surgical debridement planned - wound vac in place - Continue to offload with a waffle boot. - Regular non-irrigating wound VAC can be placed at [facility] upon discharge - Patient will need regular weekly follow-up with the wound clinic upon discharge (2) Osteomyelitis: - secondary to overlying infected skin ulcer - patient will need a total of 6 weeks of IV antibiotics, currently on day 10 - PICC line in place - transitioned from zosyn to ertapenum yesterday (to facilitate discharge planning, once daily dosing preferred over BID). Wound culture did not grow pseudomonas - patient may be a hyperbaric oxygen therapy candidate - can explore as out patient - hemodynamically stable, afebrile, no signs of sepsis (3) Type II diabetes mellitus, uncontrolled: - Last HgbA1C was 12.5% on 05-17-20 - Currently getting Lantus insulin 38 units, twice daily with correction factor of 8, 1:2.5 carb unit ratio - continue Metformin 500mg XR, daily (Cr 1.01 on 05/30) - continue gabapentin 100mg, TID for neuropathy pain - carb consistent, DM 2 diet - continued educational counseling today on illness, lifestyle modifications Outpatient items to do: Repeat HbA1c in 3 months (08/2020). Consider adding a GLP1-RA to regimen. Titrate metformin as needed. (4) CAD (coronary artery disease): - Hx of triple coronary bypass surgery in 2003 - continue ASA 81mg daily - continue Lisinopril 5mg, daily - continue atorvastatin 40mg PO daily - continue metoprolol succinate 25mg qAM (5) Dermatophytosis: - Continue miconazole cream 2% to buttocks and groin Total Time Total Time Spent Total Time Spent (In Minutes): see attending attestation Discharge Plan Discharge Items Patient Disposition: Transfer Inpatient Rehab Fac Reason For Visit: WEAKNESS,OPEN WOUNDS Discharge Diagnosis: Osteomyleitis Activity: Resume your previous activity Non-emergency contact: Primary Care Provider Call non-emergency contact if: you have any medication questions Follow-up/Referrals: PCP,NO [Primary Care Provider] - Diet: Carb Consistent or DM2 and Heart Healthy Addtl Attending Provider Instructions: Mr. Jean is a 64 yo M with a PMHx of type II diabetes mellitus (off all pharmacotherapy for past two years) who presented for evaluation of a right heel ulcer, found to have underlying osteomyelitis on imaging. Patient discharged in [facility] for inpatient rehab. - wound care following - no surgical debridement planned - wound vac in place - Continue to offload with a waffle boot. - Regular non-irrigating wound VAC can be placed at [facility] upon discharge - Patient will need regular weekly follow-up with the wound clinic upon discharge R foot Osteomyelitis - secondary to overlying infected skin ulcer - patient will need a total of 6 weeks of IV antibiotics, currently on day 10 - PICC line in place - transitioned from zosyn to ertapenum yesterday (to facilitate discharge planning, once daily dosing preferred over BID). Wound culture did not grow pseudomonas - patient may be a hyperbaric oxygen therapy candidate - can explore as outpatient - hemodynamically stable, afebrile, no signs of sepsis Uncontrolled Type II diabetes mellitus - Last HgbA1C was 12.5% on 05-17-20 - Currently getting Lantus insulin 38 units, twice daily with correction factor of 8, 1:2.5 carb unit ratio - continue Metformin 500mg XR, daily (Cr 1.01 on 05/30) - continue gabapentin 100mg, TID for neuropathy pain - carb consistent, DM 2 diet - continued educational counseling today on illness, lifestyle modifications Outpatient items to do: Repeat HbA1c in 3 months (08/2020). Consider adding a GLP1-RA to regimen. Titrate metformin as needed. Coronary Artery Disease - Hx of triple coronary bypass surgery in 2003 - continue ASA 81mg daily - continue Lisinopril 5mg, daily - continue atorvastatin 40mg PO daily - continue metoprolol succinate 25mg qAM Dermatophytosis - Continue miconazole cream 2% to buttocks and groin Pending Studies at Discharge: No Stand-Alone Forms: My [facility] Skilled Items Patient informed of condition?: Yes DNR: Yes Discharge Level of Care: Acute rehab Communicable Disease: No Discharge Prognosis: Stable Lines: PICC Urinary Catheter: No Medications and DC Order Prescriptions: New insulin aspart U-100 [Novolog U-100 Insulin aspart] 100 unit/mL Solution 0 unit SC ACHS 30 Days Qty: 1 RF: 0 gabapentin 100 mg Capsule 100 mg PO TID 30 Days Qty: 90 RF: 0 metoprolol succinate 25 mg Tablet Extended Release 24 Hr 25 mg PO QAM 30 Days Qty: 30 RF: 0 metformin 500 mg Tablet Extended Release 24 Hr 500 mg PO DAILY PRN (Reason: Diabetes) 30 Days Qty: 30 RF: 0 Lantus Solostar U-100 Insulin 100 unit/mL (3 mL) Insulin Pen 38 unit SC BID 30 Days Qty: 22.8 RF: 0 Continued atorvastatin 40 mg Tablet 40 mg PO QAM Qty: 30 RF: 5 aspirin 81 mg Tablet,Delayed Release (Dr/Ec) 81 mg PO DAILY Qty: 30 RF: 5 lisinopril [Zestril] 5 mg Tablet 5 mg PO QAM Qty: 30 RF: 5 Discontinued Novolin N NPH U-100 Insulin 100 unit/mL Suspension 30 unit SC BID Qty: 40 RF: 3 Novolin N NPH U-100 Insulin 100 unit/mL Suspension 1 units SC QDD Qty: 40 RF: 0 Novolin R Regular U-100 Insuln 100 unit/mL Solution 12 units SC DAILY@0730 Qty: 40 RF: 0 (DME) needle (disp) 25 gauge 25 gauge x 1 1/4" needle See Rx Instructions .ROUTE .MEDSUPPLY Qty: 100 RF: 5 Discharge Orders: Discharge Order (Routine); Ordered 06/01/20 Ordered By: Megha Gabriel/Other Patient Handouts: High Blood Sugar (Hyperglycemia), Hypoglycemia (Low Blood Sugar), Managing Type 2 Diabetes, Insulin How to Use and Where to Inject, Diabetes: Meal Planning Admission Data Admit Date/Time: 05/16/20 12:44 Attending Provider: Arnaldo Jung Admit Provider: Sandip Watkins Primary Care Provider: PCP,NO Other Providers: Meliton Noe ; Sandip Watkins ; Donnie Coe ; Raul Mahmood ; Gena Cleaning ; Ash Connelly I. ; Mati Lott II ; Patricia Watson ; Praveen Moreno ; [facility] ; Arnaldo Jung Other Interventions: Discharge Summary Assessment (RN) Last Done: 06/01/20 11:55 Supervising Physician Co-Signing Physician Notes Resident Physician Supervision Note: I was present with Dr. Megha Nazario during the history and exam. I discussed the case with the resident and agree with the findings and plan as documented in the note. Any exceptions or clarifications are listed here: None this pt was without complaints, he is excited to go to rehab. He is pleased with his wound healing with the Vac. he is in no distress he has no shortness of breath, labored respirations or peripheral edema, he has a dressing on his foot continue antibiotics, ertapenem for ease of administration as outpt, continue wound vac and to rehab. It required greater than 30 minutes to prepare this patient for discharge Documented By: Arnaldo Jung MD Resident Activity Tracking Resident Involvement: Resident Care Provided Care Provided: [facility] Medicine
[2020-06-01] MEDS: ERTAPENEM SODIUM 1,000 MG in SODIUM CHLORIDE 0.9% 50 ML IV SCH (10:23)
--- NOTE | 2020-06-01 15:38 | Billing Data ---
Date of Service June 01, 2020 Coding Level of Care Code D/C Day Management >30 mins
== END 2020-06-01 11:55 | DRG 623 ==
LOC: ED 09:51 → SUATTDRO 12:44 → 3W 12:44

== ENCOUNTER 2021-01-10 11:25 | Inpatient (IN) ==
[2021-01-10] MEDS ORDERED: cefTRIAXone SODIUM 1,000 MG/50 ML BAG IV STA (13:03)
--- NOTE | 2021-01-10 13:03 | Emergency Department Note ---
Impression & Plan Osteomyelitis, High serum chloride, COVID-19 ED Provider Note NAME: SLADE MENDOZA AGE: 65 SEX: M : 1955 ARRIVES VIA: Walk-In INFORMANT: Patient ED PROVIDER(S): Danny Amado DO CHIEF COMPLAINT: right heel infection HPI: Patient is a 65-year-old male who presents to the ER for right heel pain. Patient was referred in last week as his wound on his right heel has been getting worse by the wound care clinic. He did not come in. He saw his PCP today and referred him back in. He denies any headache or change in vision. No chest pain or shortness of breath. No nausea, vomiting, or diarrhea. No dysuria, urgency, or frequency. No other exacerbating remitting factors. ROS: See above HPI for pertinent positives & negatives. A total of 10 systems reviewed and were otherwise negative. PAST MEDICAL HISTORY:See Below PAST SURGICAL HISTORY:See Below FAMILY HISTORY:See Below SOCIAL HISTORY:See Below HOME MEDICATIONS:See Below ALLERGIES:See Below VITALS:See Below PHYSICAL EXAMINATION: GENERAL: Sitting up in bed, alert, well appearing, well nourished, no distress, non-toxic EYE EXAM: normal conjunctiva. PERRL and EOM's grossly intact. OROPHARYNX: no exudate, no erythema, lips, buccal mucosa, and tongue normal and mucous membranes are moist NECK: supple, no nuchal rigidity, no adenopathy, non-tender LUNGS: Clear to auscultation. Normal chest wall mechanics HEART: no murmurs, S1 normal and S2 normal ABDOMEN: abdomen soft, non-tender, normo-active bowel sounds, no masses, no rebound or guarding. UPPER EXTREMITIES: upper extremities are grossly normal. LOWER EXTREMITIES: No pitting edema. Right heel with an ulcer tracking down into the muscle draining clear liquid NEURO EXAM: Normal sensorium, cranial nerves II-XII grossly intact, normal speech, no gross weakness of arms, no gross weakness of legs. MEDICAL DECISION MAKING: Patient is a 65-year-old male who presents the ER for infection of the right purvi l. IV was established blood work is obtained. He has been followed as an outpatient through wound care clinic. Referred in by wound care clinic and PCP for osteo-. Has been on antibiotics. They are questioning if he needs surgery. Labs show no significant leukocytosis or anemia. BMP with slightly elevated chloride. LFTs bilirubin was unremarkable. Pro-Jaxon was negative. Covid was positive. X-rays of the right heel as discussed below. Patient was updated bedside. Previous MRIs reviewed from [facility] showed osteo-. Patient admitted for further work-up. Triage Nursing notes reviewed. Limited review of prior medical records performed Vital Signs: reviewed and remarkable for no significant abnormalities Differential diagnosis: Cellulitis, abscess, MRSA infection, DVT, necrotizing fasciitis, dermatitis, drug eruption, allergic reaction, as well as other pathologies. ER treatment provided: See below Diagnostics interpreted by me: ECG: none Cardiac Monitoring: An order was placed for continuous cardiac monitoring. The monitor shows a rate of 70 with sinus rhythm. Laboratory studies: As stated above and show below. Imaging studies: See below Consultation(s): none Procedures: none Critical Care: None Past Med/Surg History Medical History (Updated 01/10/21 @ 18:43 by Danny Amado DO) Alcohol abuse Anemia CAD (coronary artery disease) Diabetes mellitus Diabetic ulcer of right heel Neuropathy Osteomyelitis Osteomyelitis T2DM (type 2 diabetes mellitus) Surgical History (Updated 01/10/21 @ 16:20 by Kate Chambers PA-C) History of coronary artery bypass graft x 3 History of foot surgery Surgical debridement to R heel History of vasectomy S/P PICC central line placement Family History (Updated 01/10/21 @ 16:20 by Kate Chambers PA-C) Father Multiple myeloma Diabetes Social History (Updated 01/10/21 @ 16:20 by Kate Chambers PA-C) Smoking Status: Never smoker Second Hand Exposure: No; Hx Alcohol Use: Yes Alcohol type: beer Alcohol Intake Frequency: 2-3 x/Week Hx Substance Use: No Preferred Language: Khmer Communication Ability: Effective Tree Planter Required: No Beliefs That Will Affect Care: None marital status: Current Living Situation: Spouse current occupational status: retired How many Children do You have: 2 How many Children do You have Comment: two daughters with one that lives close to pt. able to assist with care as needed. Feels Safe at Home: Yes during the past year weight has: remained stable Assistive Devices: Walker Allergies Allergies Allergy/AdvReac Type Severity Reaction Status Date / Time No Known Allergies Allergy Verified 01/10/21 14:47 Home Meds Home Medications Medication Instructions Recorded Confirmed metformin 750 mg tablet,extended 1,500 mg PO QPM tab 08/18/20 01/10/21 release 24 hr gabapentin 300 mg PO BID 01/10/21 01/10/21 gabapentin 600 mg PO DAILY@1800 01/10/21 01/10/21 insulin regular human [Novolin R 20 unit SUBCUT BID 01/10/21 01/10/21 Regular U-100 Insuln] metoprolol succinate 12.5 mg PO DAILY 01/10/21 01/10/21 Previous Rx's Medication Instructions Recorded aspirin 81 mg PO DAILY #30 tab 02/07/20 atorvastatin 40 mg PO QAM #30 tab 02/07/20 lisinopril [Zestril] 5 mg PO QAM #30 tab 02/07/20 Results & Data (ED) Vital Signs Vital Signs - 24 hr 01/10/21 11:49 01/10/21 13:02 01/10/21 13:15 Temperature 37.4 C Temperature Source Temporal Artery Scan Pulse Rate 74 69 Pulse Rate from SpO2 Sensor 69 Respiratory Rate 18 17 Respiratory Effort / Characteristics Non-Labored Spontaneous Respiratory Depth Normal Blood Pressure 135/79 172/88 H Blood Pressure Mean 97 116 Pulse Oximetry 100 100 Oxygen Delivery Method Room Air Room Air Room Air Sepsis Recent Fever Within 48 Hours No Sepsis New/Unexplained Change in Mental Status No Sepsis Action Taken by Nursing No Action Required 01/10/21 13:30 01/10/21 13:45 01/10/21 14:00 Temperature Temperature Source Pulse Rate 75 65 66 Pulse Rate from SpO2 Sensor 71 65 67 Respiratory Rate 19 15 17 Respiratory Effort / Characteristics Respiratory Depth Blood Pressure 168/89 H 166/92 H 185/98 H Blood Pressure Mean 115 116 127 Pulse Oximetry 99 100 100 Oxygen Delivery Method Room Air Room Air Room Air Sepsis Recent Fever Within 48 Hours Sepsis New/Unexplained Change in Mental Status Sepsis Action Taken by Nursing 01/10/21 14:15 01/10/21 14:30 01/10/21 14:45 Temperature Temperature Source Pulse Rate 65 63 66 Pulse Rate from SpO2 Sensor 65 63 67 Respiratory Rate 15 17 16 Respiratory Effort / Characteristics Respiratory Depth Blood Pressure 178/96 H 199/94 H 180/99 H Blood Pressure Mean 123 129 126 Pulse Oximetry 100 100 100 Oxygen Delivery Method Room Air Room Air Room Air Sepsis Recent Fever Within 48 Hours Sepsis New/Unexplained Change in Mental Status Sepsis Action Taken by Nursing 01/10/21 15:00 01/10/21 15:15 Temperature Temperature Source Pulse Rate 64 64 Pulse Rate from SpO2 Sensor 64 64 Respiratory Rate 10 L 13 Respiratory Effort / Characteristics Respiratory Depth Blood Pressure 186/104 H 197/99 H Blood Pressure Mean 131 131 Pulse Oximetry 100 100 Oxygen Delivery Method Room Air Room Air Sepsis Recent Fever Within 48 Hours Sepsis New/Unexplained Change in Mental Status Sepsis Action Taken by Nursing Laboratory Data Result diagrams: 01/10/21 12:58 01/10/21 12:58 Lab Results 01/10/21 01/10/21 01/10/21 Range/Units 12:58 12:58 12:59 WBC 4.83 (4.8-10.8) K/uL RBC 4.33 L (4.7-6.1) M/uL Hgb 12.6 L (14.0-18.0) g/dL Hct 36.6 L (42-52) % MCV 84.5 (80-100) fL MCH 29.1 (25-34) pg MCHC 34.4 (32-36) g/dL RDW Std Deviation 41.0 (36.4-46.3) fL RDW Coeff of Mau 13.3 (11.5-14.5) % Plt Count 165 (130-400) K/uL MPV 9.1 (7.4-10.4) fL Immature Gran % (Auto) 0.2 % Neut % (Auto) 57.8 % Lymph % (Auto) 26.3 % Blount % (Auto) 8.5 % Eos % (Auto) 6.8 % Baso % (Auto) 0.4 % Neut # (Auto) 2.79 (1.4-6.5) K/uL Lymph # (Auto) 1.27 (1.2-3.4) K/uL Blount # (Auto) 0.41 (0.11-0.59) K/uL Eos # (Auto) 0.33 (0-0.5) K/uL Baso # (Auto) 0.02 (0-0.2) K/uL Immature Gran # (Auto) 0.01 (0.00-0.02) K/uL Sodium 137 (136-145) mmol/L Potassium 4.4 (3.5-5.1) mmol/L Chloride 108 H (98-107) mmol/L Carbon Dioxide 25 (21-32) mmol/L Anion Gap 4.0 (3-11) BUN 19 H (7-18) mg/dl Creatinine 1.16 (0.6-1.4) mg/dl Est Cr Clr Drug Dosing Not Reportable Est GFR ( Amer) 76.7 ml/min Est GFR (Non-Af Amer) 66.2 ml/min BUN/Creatinine Ratio 16.3 (10-20) Glucose 109 H (70-99) mg/dl Calcium 9.1 (8.5-10.1) mg/dl Total Bilirubin 0.3 (0.2-1) mg/dl AST 16 (15-37) U/L ALT 19 (12-78) U/L Alkaline Phosphatase 92 (45-117) U/L Total Protein 8.0 (6.4-8.2) gm/dl Albumin 3.4 (3.4-5.0) gm/dl Globulin 4.6 H (2.5-4.0) gm/dl Albumin/Globulin Ratio 0.7 L (0.9-2) Procalcitonin < 0.05 (0-0.5) ng/ml COVID-19 Eval Order SARS-CoV-2 (PCR) (Negative) 01/10/21 01/10/21 Range/Units 13:58 13:58 WBC (4.8-10.8) K/uL RBC (4.7-6.1) M/uL Hgb (14.0-18.0) g/dL Hct (42-52) % MCV (80-100) fL MCH (25-34) pg MCHC (32-36) g/dL RDW Std Deviation (36.4-46.3) fL RDW Coeff of Mau (11.5-14.5) % Plt Count (130-400) K/uL MPV (7.4-10.4) fL Immature Gran % (Auto) % Neut % (Auto) % Lymph % (Auto) % Blount % (Auto) % Eos % (Auto) % Baso % (Auto) % Neut # (Auto) (1.4-6.5) K/uL Lymph # (Auto) (1.2-3.4) K/uL Blount # (Auto) (0.11-0.59) K/uL Eos # (Auto) (0-0.5) K/uL Baso # (Auto) (0-0.2) K/uL Immature Gran # (Auto) (0.00-0.02) K/uL Sodium (136-145) mmol/L Potassium (3.5-5.1) mmol/L Chloride (98-107) mmol/L Carbon Dioxide (21-32) mmol/L Anion Gap (3-11) BUN (7-18) mg/dl Creatinine (0.6-1.4) mg/dl Est Cr Clr Drug Dosing Est GFR ( Amer) ml/min Est GFR (Non-Af Amer) ml/min BUN/Creatinine Ratio (10-20) Glucose (70-99) mg/dl Calcium (8.5-10.1) mg/dl Total Bilirubin (0.2-1) mg/dl AST (15-37) U/L ALT (12-78) U/L Alkaline Phosphatase (45-117) U/L Total Protein (6.4-8.2) gm/dl Albumin (3.4-5.0) gm/dl Globulin (2.5-4.0) gm/dl Albumin/Globulin Ratio (0.9-2) Procalcitonin (0-0.5) ng/ml COVID-19 Eval Order Covid19 at [facility] SARS-CoV-2 (PCR) POSITIVE A* (Negative) Administered Medications Discontinued Medications Ceftriaxone Sodium (Rocephin) 1,000 mg in 50 mls @ 100 mls/hr IV NOW STA Stop: 01/10/21 13:32 Last Infusion: 01/10/21 14:33 Dose: 0 mls/hr Documented by: [id number] Admin: 01/10/21 13:57 Dose: 100 mls/hr Documented by: [id number] Piperacillin Sod/Tazobactam Sod (Zosyn) 4.5 gm in 120 mls @ 240 mls/hr IV NOW ONE; Protocol Stop: 01/10/21 17:29 Last Infusion: 01/10/21 18:30 Dose: 0 mls/hr Documented by: [id number] Admin: 01/10/21 17:12 Dose: 240 mls/hr Documented by: [id number] Vancomycin HCl 2,250 mg/ (Sodium Chloride) 545 mls @ 200 mls/hr IV NOW ONE Stop: 01/10/21 19:58 Last Admin: 01/10/21 18:31 Dose: Not Given Documented by: [id number] Lorazepam (Ativan) 0.5 mg in 1 mls @ 1 mls/min IV NOW STA Stop: 01/10/21 16:13 Last Admin: 01/10/21 17:12 Dose: 1 mls/min Documented by: [id number] Imaging Data Radiologist's Impression: Calcaneus X-Ray 01/10/21 13:03 XR calcaneus RT min 2V CLINICAL HISTORY: Right heel ulcer. COMPARISON STUDY: Right ankle MRI 08/22/2020. FINDINGS: There is persistent cortical destruction within the posterior lateral aspect of the calcaneus with an overlying skin ulceration. This is similar to the prior MRI. There are plantar and posterior calcaneal spurs. There is retrocalcaneal soft tissue swelling. Nondisplaced fracture within the posterior calcaneus is also noted. This is similar to the prior MRI. IMPRESSION: 1. No change in the cortical destruction within the posterior lateral aspect of the calcaneus compared to the prior MRI. This consistent with a persistent osteomyelitis. 2. There is a small nondisplaced fracture within the posterior medial aspect of the calcaneus which is also unchanged. ACT 112: Negative or not required by law. Electronically signed by: Scar Calvert M.D. 01/10/2021 1:32 PM Discharge Plan Visit Data Chief Complaint: Infection Stated Complaint: RT HEEL INFECTION, NOT HEELING ED Provider: Danny Amado Discharge Problem: Osteomyelitis, High serum chloride, COVID-19 Discharge Instructions Interventions: ED Discharge Assessment Last Done: 01/10/21 17:33 Discharge Problem: Osteomyelitis Qualifiers: Osteomyelitis type: unspecified type Osteomyelitis location: unspecified site Qualified Code(s): M86.9 - Osteomyelitis, unspecified
[2021-01-10 13:29] LABS: Basophils # (auto) 0.02 K/uL (0-0.2); Basophils % (auto) 0.4 %; Eosinophils # (auto) 0.33 K/uL (0-0.5); Eosinophils % (auto) 6.8 %; Hematocrit (blood only) 36.6 % (42-52); Hemoglobin 12.6 g/dL (14.0-18.0); Immature Granulocytes # (auto) 0.01 K/uL (0.00-0.02); Immature Granulocytes % (auto) 0.2 %; Lymphocytes # (auto) 1.27 K/uL (1.2-3.4); Lymphocytes % (auto) 26.3 %; Mean Corpuscular Hemoglobin 29.1 pg (25-34); Mean Corpuscular Hgb Conc 34.4 g/dL (32-36); Mean Corpuscular Volume 84.5 fL (80-100); Mean Platelet Volume 9.1 fL (7.4-10.4); Monocytes # (auto) 0.41 K/uL (0.11-0.59); Monocytes % (auto) 8.5 %; Neutrophils # (auto) 2.79 K/uL (1.4-6.5); Neutrophils % (auto) 57.8 %; Platelet Count 165 K/uL (130-400); RDW Coefficient of Variation 13.3 % (11.5-14.5); Red Blood Count 4.33 M/uL (4.7-6.1); White Blood Count 4.83 K/uL (4.8-10.8)
[2021-01-10 13:32] LABS: Alanine Aminotransferase 19 U/L (12-78); Albumin Level 3.4 gm/dl (3.4-5.0); Aspartate Aminotransferase 16 U/L (15-37); BUN Creatinine Ratio 16.3 (10-20); Blood Urea Nitrogen 19 mg/dl (7-18); Calcium 9.1 mg/dl (8.5-10.1); Carbon Dioxide 25 mmol/L (21-32); Chloride 108 mmol/L (98-107); Est GFR (African American) 76.7 ml/min; Est GFR (Non-African American) 66.2 ml/min; Glucose 109 mg/dl (70-99); Potassium 4.4 mmol/L (3.5-5.1); Sodium 137 mmol/L (136-145)
--- NOTE | 2021-01-10 13:34 | XRay Report ---
XR calcaneus RT min 2V CLINICAL HISTORY: Right heel ulcer. COMPARISON STUDY: Right ankle MRI 08/22/2020. FINDINGS: There is persistent cortical destruction within the posterior lateral aspect of the calcane us with an overlying skin ulceration. This is similar to the prior MRI. There are plantar and posteri or calcaneal spurs. There is retrocalcaneal soft tissue swelling. Nondisplaced fracture within the po sterior calcaneus is also noted. This is similar to the prior MRI. IMPRESSION: 1. No change in the cortical destruction within the posterior lateral aspect of the calcaneus compare d to the prior MRI. This consistent with a persistent osteomyelitis. 2. There is a small nondisplaced fracture within the posterior medial aspect of the calcaneus which i s also unchanged. ACT 112: Negative or not required by law. Electronically signed by: Scar Calvert M.D. 01/10/2021 1:32 PM
[2021-01-10 13:35] LABS: Albumin Globulin Ratio 0.7 (0.9-2); Alkaline Phosphatase 92 U/L (45-117); Bilirubin,Total 0.3 mg/dl (0.2-1); Globulin 4.6 gm/dl (2.5-4.0)
[2021-01-10] MEDS ORDERED: VANCOMYCIN CONSULT ACTIVE PRN ×4 (15:26→18:27)
[2021-01-10] MEDS ORDERED: PIPERACILL/TAZOBAC CONSULT ACTIVE PRN ×2 (15:26→15:48)
--- NOTE | 2021-01-10 15:28 | History & Physical Report ---
Date of Service January 10, 2021 Assessment & Plan (1) Osteomyelitis: Present on Admission?: Yes (2) Diabetic ulcer of right heel: This is a 65-year-old male who has significant past medical history of CAD status post CABG in 2003, IDDM 2, HTN, HLD chronic right calcaneal osteomyelitis, chronic right diabetic foot ulcer who presents ED secondary to worsening right heel ulcer for several weeks. MRI on 12/07 revealed patchy calcaneal bone marrow edema and enhancement suspicious for osteomyelitis. Cortical irregularity involving the posterior lateral aspect of calcaneus may represent postsurgical changes from prior debridement however osteolysis from progression of osteomyelitis could appear similar. He now has worsening erythema, enlargement and clear drainage coming from wound. He does not meet SIRS or sepsis criteria. Admit to med telemetry Continue IV antibiotics, will switch to IV daptomycin and cefepime Consult infectious disease Consult wound care Obtain wound culture Obtain blood cultures and procalcitonin Offload right heel with Darco shoe Consult orthopedics -discussed with [facility] Orthopedics recommended MRI however COVID-19 now positive will obtain CT Present on Admission?: Yes (3) T2DM (type 2 diabetes mellitus): Last A1c 6.3 on 08/10/2020 Obtain A1c in a.m. Hold Metformin Continue NPH with parameters, insulin sliding scale Consult glycemic pharmacy, appreciate their management (4) CAD (coronary artery disease): History of CABG in 2003 EKG reviewed and unchanged from 05/19/2020 He did have echocardiogram in 07/23/2019 which revealed EF 55 to 60% Continue ASA, atorvastatin, lisinopril and metoprolol No chest pain or shortness of breath (5) Anemia: Hemoglobin 12.6 and 36.6, normocytic normochromic Likely secondary to chronic disease in setting of chronic osteomyelitis (6) SARS-CoV-2 positive: Patient had mild COVID-19 infection 05/2020 with fever and URI symptoms x1 day while [facility] He has not yet received COVID-19 vaccination SARS-CoV-2 positive today, he is asymptomatic, chest x-ray without acute abnormality Will place on Covid isolation due to greater than 90 days post initial infection at bedside who also was not vaccinated advised quarantine for 10 days Monitor oxygen saturation and vital signs daily (7) DVT prophylaxis: SQ Lovenox Dispo: Med telemetry PCP: Elizabeth FULL CODE Pt was seen and examined in collaboration with Dr. Lacey, please see addendum History of Present Illness Chief Complaint: Worsening R heel ulcer x several weeks. Primary Care Provider: Dr. Johnson This is a 65-year-old male who has significant past medical history of CAD stat us post CABG in 2003, IDDM 2, HTN, HLD chronic right calcaneal osteomyelitis, chronic right diabetic foot ulcer who presents ED secondary to worsening right heel ulcer for several weeks. Patient initially admitted to [facility] in May 2020 with Aerococcus prevotii bacteremia and infected right heel wound status post bedside debridement, polymicrobial felicia including Prevotella Bivia, alpha strep, Bacteroides Pyogenes and Aerococcus isolated. At that time treated with IV Zosyn and ertapenem for 4 to 6 weeks. Infection recurred in August 2020 in which he underwent MRI that showed extensive infection extending into the calf and also calcaneal OM. Orthopedics attempted a bedside aspiration but per notes, collection was too thick." This time he was briefly treated with Vanco and Zosyn and transition to single therapy with Zosyn until mid October 2020 when she completed 6 weeks of therapy. At that time he underwent no surgical intervention. Since then he has been on oral amoxicillin and has been following with wound clinic daily. He was seen and evaluated by infectious disease at [facility] on 11/21/2020 in which at that time wound has been improving. He did have MRI which revealed calf abscess and calcaneus OM for which he did not undergo surgery. At this time infectious disease was concerned infection would rule out. At that point time is not placed on any further antibiotic therapy. He did undergo repeat MRI on 12/07 of ankle and foot which revealed patchy calcaneal bone marrow edema and enhancement suspicious for osteomyelitis, cortical irregularity involving the posterior lateral aspect of calcaneus, may represent postsurgical changes from prior debridement or osteolysis from progression of osteomyelitis could appear similar. He was initially followed by orthopedics at [facility] but wishes to follow with group locally. He was seen and evaluated in clinic today by PCP Dr. Johnson who was concerned secondary to worsening appearance of wound from 2 weeks ago with associated clear drainage. He was referred to ED for further evaluation. Overall he feels well. He denies fever, chills, sweats, lightheadedness, dizziness, URI symptoms, cough, chest pain, shortness breath, hemoptysis, nausea, vomiting, abdominal pain, change in bowel or urinary habits. His appetite has been well. Denies any unexplained weight loss. He admits to being noncompliant with Darco shoe. at bedside states he only wears it to the doctor's office. He states over the past weekend he was helping a friend unload brick out of a truck and was wearing a regular shoe. He denies any pain to the right foot secondary to neuropathy and unable to feel. During ED evaluation he remained hemodynamically stable. CBC revealed mild anemia 12.6 and 36.6 his CMP was relatively unremarkable. He did test positive for SARS-CoV-2 but is currently asymptomatic. He admits to infection in May 2020 during stay at [facility]. He had very mild symptoms with fever and mild URI symptoms x1 day. He is not vaccinated nor is his . In ED he was started on IV Rocephin. Allergies Allergy/AdvReac Type Severity Reaction Status Date / Time No Known Allergies Allergy Verified 01/10/21 14:47 Home Medications Medication Instructions Recorded Confirmed Type aspirin 81 mg PO DAILY #30 tab 02/07/20 01/10/21 Rx atorvastatin 40 mg PO QAM #30 tab 02/07/20 01/10/21 Rx lisinopril [Zestril] 5 mg PO QAM #30 tab 02/07/20 01/10/21 Rx metformin 750 mg tablet,extended 1,500 mg PO QPM tab 08/18/20 01/10/21 History release 24 hr gabapentin 300 mg PO BID 01/10/21 01/10/21 History gabapentin 600 mg PO DAILY@1800 01/10/21 01/10/21 History insulin regular human [Novolin R 20 unit SUBCUT BID 01/10/21 01/10/21 History Regular U-100 Insuln] metoprolol succinate 12.5 mg PO DAILY 01/10/21 01/10/21 History Past Med/Surg History Medical History (Updated 01/10/21 @ 18:43 by Danny Amado DO) Alcohol abuse Anemia CAD (coronary artery disease) Diabetes mellitus Diabetic ulcer of right heel Neuropathy Osteomyelitis Osteomyelitis T2DM (type 2 diabetes mellitus) Surgical History (Updated 01/10/21 @ 16:20 by Kate Chambers PA-C) History of coronary artery bypass graft x 3 History of foot surgery Surgical debridement to R heel History of vasectomy S/P PICC central line placement Family History (Updated 01/10/21 @ 16:20 by Kate Chambers PA-C) Father Multiple myeloma Diabetes Social History (Updated 01/10/21 @ 16:20 by Kate Chambers PA-C) Smoking Status: Never smoker Second Hand Exposure: Yes; Do You Dip or Chew Tobacco: No; Hx Alcohol Use: Yes Alcohol type: beer Alcohol Intake Frequency: 2-3 x/Week Hx Substance Use: No Preferred Language: Vietnamese Communication Ability: Effective Cloth Beamer Required: No Beliefs That Will Affect Care: None marital status: Current Living Situation: Spouse current occupational status: retired How many Children do You have: 2 How many Children do You have Comment: two daughters with one that lives close to pt. able to assist with care as needed. Feels Safe at Home: Yes Safety Concerns: Feels Safe At This Time during the past year weight has: remained stable Assistive Devices: None Review of Systems Review of Systems: All systems reviewed & are unremarkable except as noted in HPI & below Physical Exam Physical Exam: Constitutional: WD/WN, M, vitals as above, NAD, sitting up in bed, pleasant, conversing easily Head: Normocephalic, Atraumatic Eyes: PERRL, conjunctivae normal, anicteric sclerae ENMT: external ear and nose normal, oropharynx normal Neck: trachea midline, no thyromegaly normal visual inspection Respiratory: normal respiratory effort, lungs clear to auscultation, no wheeze, rales, rhonchi. Normal insp/exp effort, no accessory muscle use Cardiovascular: RRR, no murmur, no edema Vessels: no JVD or carotid bruit Chest: normal inspection of chest Abdomen: normal bowel sounds, soft, nontender, no hepatosplenomegaly Musculoskeletal: no cyanosis or clubbing, extremities motor strength 5/5 Skin: R lateral heel with wound, appears stage 3, pictures noted in chart. no rashes, warm and dry normal turgor Neurologic: PERRL, EOMI, accommodation nl, no face palsy, no dysarthria CN's II-XI intact bilaterally and moves all extremities Psychiatric: A+Ox3, euthymic affect Lymphatic: no cervical or axillary lymphadenopathy : deferred Results & Data Results & Data ([facility]) Vital Signs (Past 12 Hours) Vital Signs Temp Pulse Resp BP Pulse Ox 01/10/21 14:45 66 16 180/99 H 100 01/10/21 14:30 63 17 199/94 H 100 01/10/21 14:15 65 15 178/96 H 100 01/10/21 14:00 66 17 185/98 H 100 01/10/21 13:45 65 15 166/92 H 100 01/10/21 13:30 75 19 168/89 H 99 01/10/21 13:15 69 17 172/88 H 100 01/10/21 11:49 37.4 C 74 18 135/79 100 Diagnostic Findings Calcaneus X-Ray 01/10/21 13:03 XR calcaneus RT min 2V CLINICAL HISTORY: Right heel ulcer. COMPARISON STUDY: Right ankle MRI 08/22/2020. FINDINGS: There is persistent cortical destruction within the posterior lateral aspect of the calcaneus with an overlying skin ulceration. This is similar to the prior MRI. There are plantar and posterior calcaneal spurs. There is retrocalcaneal soft tissue swelling. Nondisplaced fracture within the posterior calcaneus is also noted. This is similar to the prior MRI. IMPRESSION: 1. No change in the cortical destruction within the posterior lateral aspect of the calcaneus compared to the prior MRI. This consistent with a persistent osteomyelitis. 2. There is a small nondisplaced fracture within the posterior medial aspect of the calcaneus which is also unchanged. ACT 112: Negative or not required by law. Electronically signed by: Scar Calvert M.D. 01/10/2021 1:32 PM Chest X-Ray 01/10/21 15:28 XR chest 1V portable CLINICAL HISTORY: + covid test, pre op COMPARISON STUDY: July 12, 2020 FINDINGS: No pneumothorax. No pleural effusion. No large infiltrates or consolidative lesions are seen. Lung volumes are decreased with crowded lung markings. Cardiomediastinal silhouette is within normal limits in size. No significant pulmonary vascular congestion.. Osseous structures: Degenerative changes of the left shoulder. Vertebral bodies are not well seen. Midline sternotomy wires are again demonstrated. IMPRESSION: 1. No acute pulmonary process. 2. Slightly limited exam due to low inspiratory effort. ACT 112: Negative or not required by law. The above report was generated using voice recognition software. It may contain grammatical, syntax or spelling errors. Electronically signed by: Michelle Soares DO 01/10/2021 3:56 PM Medications Administered Medication List Discontinued Medications Ceftriaxone Sodium (Rocephin) 1,000 mg in 50 mls @ 100 mls/hr IV NOW STA Stop: 01/10/21 13:32 Last Infusion: 01/10/21 14:33 Dose: 0 mls/hr Documented by: [id number] Admin: 01/10/21 13:57 Dose: 100 mls/hr Documented by: [id number] ECG Rate (beats per minute): 60 Rhythm: normal sinus Findings: + T-wave inversion (lead III ) COVID-19 Results Results COVID-19 Adm Lab Results: RBC 4.33 M/uL (4.7-6.1) L 01/10/21 WBC 4.83 K/uL (4.8-10.8) 01/10/21 Hgb 12.6 g/dL (14.0-18.0) L 01/10/21 Hct 36.6 % (42-52) L 01/10/21 Plt Count 165 K/uL (130-400) 01/10/21 Neutrophils (%) (Auto) 57.8 % 01/10/21 Lymphocytes (%) (Auto) 26.3 % 01/10/21 Monocytes # (Auto) 0.41 K/uL (0.11-0.59) 01/10/21 Eosinophils # (Auto) 0.33 K/uL (0-0.5) 01/10/21 Immature Granulocyte % (Auto) 0.2 % 01/10/21 Neutrophils # (Auto) 2.79 K/uL (1.4-6.5) 01/10/21 Lymphocytes # (Auto) 1.27 K/uL (1.2-3.4) 01/10/21 Monocytes # (Auto) 0.41 K/uL (0.11-0.59) 01/10/21 Eosinophils # (Auto) 0.33 K/uL (0-0.5) 01/10/21 Basophils # (Auto) 0.02 K/uL (0-0.2) 01/10/21 Immature Granulocyte # (Auto) 0.01 K/uL (0.00-0.02) 01/10/21 Na 137 mmol/L (136-145) 01/10/21 K 4.4 mmol/L (3.5-5.1) 01/10/21 Cl 108 mmol/L (98-107) H 01/10/21 CO2 25 mmol/L (21-32) 01/10/21 Anion Gap 4.0 (3-11) 01/10/21 BUN 19 mg/dl (7-18) H 01/10/21 Creatinine 1.16 mg/dl (0.6-1.4) 01/10/21 BUN/Creatinine Ratio 16.3 (10-20) 01/10/21 Glucose Level 109 mg/dl (70-99) H 01/10/21 Ca 9.1 mg/dl (8.5-10.1) 01/10/21 Total Bilirubin 0.3 mg/dl (0.2-1) 01/10/21 AST/SGOT 16 U/L (15-37) 01/10/21 ALT/SGPT 19 U/L (12-78) 01/10/21 Alkaline Phosphatase 92 U/L (45-117) 01/10/21 Total Protein 8.0 gm/dl (6.4-8.2) 01/10/21 Albumin 3.4 gm/dl (3.4-5.0) 01/10/21 Globulin 4.6 gm/dl (2.5-4.0) H 01/10/21 Albumin/Globulin Ratio 0.7 (0.9-2) L 01/10/21 CRP 0.93 mg/dl (0-0.29) H 01/10/21 Procalcitonin < 0.05 ng/ml (0-0.5) 01/10/21 COVID-19 PCR POSITIVE (Negative) A* 01/10/21 Chest X-Ray 01/10/21 Code Status & VTE Plan Code Status DNR/DNI VTE Prophylaxis Plan VTE Prophylaxis will be ordered: Yes Supervising Physician Co-Signing Physician Notes Patient is a 65-year-old male with multiple comorbidities including chronic right calcaneal osteomyelitis, diabetic foot ulcer presents with history of worsening right heel ulcer for last several weeks. Please review HPI for complete details of presentation. He was also diagnosed to have Covid in May 2020 while at rehab facility. On exam patient is moderately built and nourished, no apparent distress, normocephalic atraumatic, EOMI, normal breath sounds, clear to auscultation, no pedal edema, S1-S2, no murmur,+ CABG scar, abdomen soft, nontender, normal bowel sounds, right heel wound in dressing. Alert, awake, oriented, grossly no focal deficits. Patient is admitted for management of right heel osteomyelitis, diabetic foot ulcer. No signs of sepsis. CT foot suggestive of focal skin ulceration with evidence of subcortical sclerosis, findings suggestive of acute on chronic osteomyelitis. Covid screen positive as well. Currently asymptomatic and saturating well on room air. Denies any significant pain of the ulcer. Start on broad-spectrum IV antibiotics daptomycin, cefepime. Consult ID, orthopedics. Continue wound care. Currently does not require any treatment for Covid. Continue isolation precautions. Agree with insulin therapy for management of diabetes mellitus. I personally reviewed the record. Patient is interviewed and examined at bedside. Patient's care is coordinated with Kate Chambers PA-C. Please refer to the documentation above for details of patient's presentation and for discussion of other issues. (1) CAD (coronary artery disease) Associated angina: without angina Coronary Disease-Associated Artery/Lesion type: [place] artery [place] vs. transplanted heart: [place] heart Qualified Code(s): I25.10 - Atherosclerotic heart disease of [place] coronary artery without angina pectoris
--- NOTE | 2021-01-10 15:57 | XRay Report ---
XR chest 1V portable CLINICAL HISTORY: + covid test, pre op COMPARISON STUDY: July 12, 2020 FINDINGS: No pneumothorax. No pleural effusion. No large infiltrates or consolidative lesions are seen. Lung volumes are decreased with crowded lung markings. Cardiomediastinal silhouette is within normal limits in size. No significant pulmonary vascular congestion.. Osseous structures: Degenerative changes of the left shoulder. Vertebral bodies are not well seen. Midline sternotomy wires are again demonstrated. IMPRESSION: 1. No acute pulmonary process. 2. Slightly limited exam due to low inspiratory effort. ACT 112: Negative or not required by law. The above report was generated using voice recognition software. It may contain grammatical, syntax o r spelling errors. Electronically signed by: Michelle Soares DO 01/10/2021 3:56 PM
[2021-01-10] MEDS ORDERED: LORazepam 0.5 MG/1 ML VIAL IV STA (16:12)
[2021-01-10] MEDS ORDERED: PIPERACILLIN/TAZOBACTAM 4.5 GM/120 ML BAG IV ONE (17:00)
[2021-01-10] MEDS ORDERED: VANCOMYCIN HCL 2,250 MG in SODIUM CHLORIDE 0.9% 500 ML IV ONE (17:15)
--- NOTE | 2021-01-10 18:12 | CT Scan Report ---
RIGHT FOOT CT CT DOSE: 228.19 mGy.cm HISTORY: R heel osteomyelitis. Follow-up., unable to do mri due to + covid TECHNIQUE: Multiaxial CT images of the right foot were performed and reformatted in the sagittal and coronal plane without the use of contrast. A dose lowering technique was utilized adhering to the pr inciples of [place]. COMPARISON: Right heel 01/10/2021. Right ankle MRI 08/22/2020. FINDINGS: There is a 2 cm focal skin ulceration within the posterior lateral aspect of the heel. Deep to the skin ulceration there is evidence for mild cortical irregularity/destruction and subcortical sclerosis. This favors an acute or chronic osteomyelitis. This is similar to the prior study. No frac tures identified within the calcaneus. There are plantar and posterior calcaneal spurs noted. Extensi ve soft tissue edema seen throughout the ankle and hindfoot. Diffuse thickening of the Achilles tendo n is partially visualized and better appreciated on the prior MRI. This is also similar to the prior study. Vascular calcifications are noted. IMPRESSION: 1. A 2 cm focal skin ulceration within the posterior lateral aspect of the heel. 2. Deep to the skin ulceration there is evidence for mild cortical irregularity/destruction and subco rtical sclerosis. This favors an acute on chronic osteomyelitis and is similar to the prior MRI. 3. Diffuse soft tissue edema seen throughout the ankle and hindfoot. 4. Diffuse thickening of the Achilles tendon which is better appreciated on the prior MRI. ACT 112: Negative or not required by law. Electronically signed by: Scar Calvert M.D. 01/10/2021 6:11 PM
[2021-01-10] MEDS ORDERED: CARBOHYDRATES FOR HYPOGLYCEMIA PO PRN (18:27)
[2021-01-10] MEDS ORDERED: DEXTROSE 50% 50 ML SYRINGE IV PRN (18:27)
[2021-01-10] MEDS ORDERED: GLUCOSE 40% GEL 15 GM TUBE PO PRN (18:27)
[2021-01-10] MEDS ORDERED: MAGNESIUM HYDROXIDE SUSP 30 ML UDC PO PRN (18:27)
[2021-01-10] MEDS ORDERED: GLUCAGON FOR INJ 1 MG VIAL SQ PRN (18:27)
[2021-01-10] MEDS ORDERED: GLUCOSE 10 TABS/TUBE PO PRN (18:27)
[2021-01-10] MEDS ORDERED: ALUMINUM/MAGNESIUM SUSP 30 ML UDC PO PRN (18:27)
[2021-01-10] MEDS ORDERED: POLYETHYLENE (MIRALAX) 17 GM PACK PO PRN (18:27)
[2021-01-10] MEDS ORDERED: ONDANSETRON INJ 2 MG/ML 2 ML VIAL IV PRN (18:27)
[2021-01-10] MEDS ORDERED: ACETAMINOPHEN 325 MG TAB PO PRN (18:27)
[2021-01-10] MEDS ORDERED: CEFEPIME CONSULT ACTIVE PRN (18:43)
[2021-01-10] MEDS ORDERED: PHARMACY GLYCEMIC MGMT CONSULT PRN (18:47)
[2021-01-10] MEDS ORDERED: hydrALAZINE 10 MG TAB PO PRN (18:51)
[2021-01-10] MEDS ORDERED: INSULIN HUMAN NPH SQ ONE (19:00)
[2021-01-10] MEDS ORDERED: INSULIN ASPART 100 UNITS/ML 3 ML PEN SC SCH (19:00)
[2021-01-10] MEDS ORDERED: GABAPENTIN 300 MG CAP PO SCH (21:00)
[2021-01-10] MEDS ORDERED: ENOXAPARIN INJ 40 MG/0.4 ML SYR SQ SCH (21:00)
[2021-01-10] MEDS: DAPTOmycin 500 MG in SYRINGE 0 ML IV SCH (21:14)
[2021-01-10] MEDS: GABAPENTIN 300 MG CAP PO SCH (21:18)
[2021-01-10] MEDS: CEFEPIME 2,000 MG in SYRINGE 0 ML IV SCH (21:34)
[2021-01-10] MEDS ORDERED: PIPERACILLIN/TAZOBACTAM 3.375 GM in DEXTROSE 5% 100 ML IV SCH (22:00)
[2021-01-11] MEDS: INSULIN ASPART 100 UNITS/ML 3 ML PEN SC SCH ×5 (01:42→21:21)
[2021-01-11] MEDS ORDERED: VANCOMYCIN HCL 1,250 MG in SODIUM CHLORIDE 0.9% 250 ML IV SCH (04:00)
[2021-01-11] MEDS: GABAPENTIN 300 MG CAP PO SCH ×3 (05:51→18:11)
[2021-01-11] MEDS: CEFEPIME 2,000 MG in SYRINGE 0 ML IV SCH ×3 (05:57→21:10)
--- NOTE | 2021-01-11 07:07 | Electrocardiogram Report ---
Test Reason : Blood Pressure : / mmHG Vent. Rate : 060 BPM Atrial Rate : 060 BPM P-R Int : 158 ms QRS Dur : 094 ms QT Int : 410 ms P-R-T Axes : 002 -21 -03 degrees QTc Int : 410 ms Normal sinus rhythm Possible Inferior infarct (cited on or before 12-JAN-2012) Abnormal ECG When compared with ECG of 19-MAY-2020 15:59, Premature ventricular complexes are no longer Present Premature atrial complexes are no longer Present Confirmed by Izaiah Ibarra ([id number]) on 01/11/2021 7:06:49 AM Referred By: REFERRED SELF Confirmed By:Izaiah Ibarra
[2021-01-11 08:40] LABS: Basophils # (auto) 0.01 K/uL (0-0.2); Basophils % (auto) 0.3 %; Eosinophils # (auto) 0.44 K/uL (0-0.5); Eosinophils % (auto) 13.1 %; Hematocrit (blood only) 33.5 % (42-52); Hemoglobin 11.7 g/dL (14.0-18.0); Immature Granulocytes # (auto) 0.01 K/uL (0.00-0.02); Immature Granulocytes % (auto) 0.3 %; Lymphocytes # (auto) 0.55 K/uL (1.2-3.4); Lymphocytes % (auto) 16.3 %; Mean Corpuscular Hemoglobin 28.7 pg (25-34); Mean Corpuscular Hgb Conc 34.9 g/dL (32-36); Mean Corpuscular Volume 82.1 fL (80-100); Mean Platelet Volume 8.9 fL (7.4-10.4); Monocytes # (auto) 0.37 K/uL (0.11-0.59); Neutrophils # (auto) 1.99 K/uL (1.4-6.5); Platelet Count 126 K/uL (130-400); RDW Standard Deviation 39.5 fL (36.4-46.3); Red Blood Count 4.08 M/uL (4.7-6.1); White Blood Count 3.37 K/uL (4.8-10.8)
[2021-01-11 09:11] LABS: BUN Creatinine Ratio 16.9 (10-20); Calcium 9.2 mg/dl (8.5-10.1); Creatinine Clr Calc Pharmacy 82.8 ml/min; Est GFR (African American) 96.4 ml/min; Est GFR (Non-African American) 83.2 ml/min; Potassium 4.6 mmol/L (3.5-5.1)
[2021-01-11 09:15] LABS: Albumin Globulin Ratio 0.7 (0.9-2); Bilirubin,Total 0.7 mg/dl (0.2-1); Globulin 4.1 gm/dl (2.5-4.0); Total Protein 7.1 gm/dl (6.4-8.2)
[2021-01-11] MEDS: lisinopril 5 MG TAB PO SCH (09:27)
[2021-01-11] MEDS: METOPROLOL SUCC 25MG EXT REL TAB PO SCH (09:28)
[2021-01-11] MEDS: ATORVASTATIN 40 MG TAB PO SCH (09:28)
[2021-01-11] MEDS: ASPIRIN 81 MG ECTAB PO SCH (09:29)
[2021-01-11 09:41] LABS: Estimated Average Glucose 146 mg/dl; Hemoglobin A1C 6.7 % (4.5-5.6)
--- NOTE | 2021-01-11 13:24 | Orthopedic Consultation ---
Date of Consultation January 11, 2021 History of Present Illness Attending Physician: Jessica Vega MD Allergies Allergy/AdvReac Type Severity Reaction Status Date / Time No Known Allergies Allergy Verified 01/10/21 14:47 Home Medications Medication Instructions Recorded Confirmed Type aspirin 81 mg PO DAILY #30 tab 02/07/20 01/10/21 Rx atorvastatin 40 mg PO QAM #30 tab 02/07/20 01/10/21 Rx lisinopril [Zestril] 5 mg PO QAM #30 tab 02/07/20 01/10/21 Rx metformin 750 mg tablet,extended 1,500 mg PO QPM tab 08/18/20 01/10/21 History release 24 hr gabapentin 300 mg PO BID 01/10/21 01/10/21 History gabapentin 600 mg PO DAILY@1800 01/10/21 01/10/21 History insulin regular human [Novolin R 20 unit SUBCUT BID 01/10/21 01/10/21 History Regular U-100 Insuln] metoprolol succinate 12.5 mg PO DAILY 01/10/21 01/10/21 History Patient History Medical History (Updated 01/10/21 @ 18:43 by Danny Amado DO) Alcohol abuse Anemia CAD (coronary artery disease) Diabetes mellitus Diabetic ulcer of right heel Neuropathy Osteomyelitis Osteomyelitis T2DM (type 2 diabetes mellitus) Surgical History (Updated 01/10/21 @ 16:20 by Kate Chambers PA-C) History of coronary artery bypass graft x 3 History of foot surgery Surgical debridement to R heel History of vasectomy S/P PICC central line placement Family History (Updated 01/10/21 @ 16:20 by Kate Chambers PA-C) Father Multiple myeloma Diabetes Social History (Updated 01/10/21 @ 16:20 by Kate Chambers PA-C) Smoking Status: Never smoker Second Hand Exposure: Yes; Do You Dip or Chew Tobacco: No; Hx Alcohol Use: Yes Alcohol type: beer Alcohol Intake Frequency: 2-3 x/Week Hx Substance Use: No Preferred Language: Telugu Communication Ability: Effective Bit Sander Required: No Beliefs That Will Affect Care: None marital status: Current Living Situation: Spouse current occupational status: retired How many Children do You have: 2 How many Children do You have Comment: two daughters with one that lives close to pt. able to assist with care as needed. Feels Safe at Home: Yes Safety Concerns: Feels Safe At This Time during the past year weight has: remained stable Assistive Devices: None Results & Data ([facility]) Vital Signs (Past 12 Hours) Vital Signs Temp Pulse Resp BP Pulse Ox 01/11/21 12:08 36.3 C L 61 18 168/81 H 97 01/11/21 07:40 36.7 C 65 20 169/81 H 97 01/11/21 03:30 36.8 C 67 18 124/73 99 Diagnostic Findings Patient: SLADE MENDOZA Date: 01/10/21MR#: [id number]: [address] RDAcct ID:[id number]: Date: 1955[facility] Zip: [place], [place] [address]Vnw: 65Location: EDSex: MRoom/Bed:Att Phy:Diagnosis: RT HEEL INFECTION, NOT HEELINGPri Phy: Karlos Johnson MDService Date: 01/10/21Fa Phy:Interpreting Phy: Scar Calvert MDAdmit Phy: Ordering Phy: Kate Chambers PA-C cc: ~ RIGHT FOOT CT CT DOSE: 228.19 mGy.cm HISTORY: R heel osteomyelitis. Follow-up., unable to do mri due to + covid TECHNIQUE: Multiaxial CT images of the right foot were performed and reformatted in the sagittal and coronal plane without the use of contrast. A dose lowering technique was utilized adhering to the principles of [place]. COMPARISON: Right heel 01/10/2021. Right ankle MRI 08/22/2020. FINDINGS: There is a 2 cm focal skin ulceration within the posterior lateral aspect of the heel. Deep to the skin ulceration there is evidence for mild cortical irregularity/destruction and subcortical sclerosis. This favors an acute or chronic osteomyelitis. This is similar to the prior study. No fractures identified within the calcaneus. There are plantar and posterior calcaneal spurs noted. Extensive soft tissue edema seen throughout the ankle and hindfoot. Diffuse thickening of the Achilles tendon is partially visualized and better appreciated on the prior MRI. This is also similar to the prior study. Vascular calcifications are noted. IMPRESSION: 1. A 2 cm focal skin ulceration within the posterior lateral aspect of the heel. 2. Deep to the skin ulceration there is evidence for mild cortical irregularity/destruction and subcortical sclerosis. This favors an acute on chronic osteomyelitis and is similar to the prior MRI. 3. Diffuse soft tissue edema seen throughout the ankle and hindfoot. 4. Diffuse thickening of the Achilles tendon which is better appreciated on the prior MRI.
--- NOTE | 2021-01-11 14:16 | Orthopedic Consultation ---
Date of Consultation January 11, 2021 Assessment & Plan (1) Diabetic ulcer of right heel: Chronic right heel ulcer. X-ray and CT scan as noted below. I have discussed the case with Dr. Duncan. The wound appears to have gotten slightly larger compared to the last picture on 01/05/21, and the edges have gotten more necrotic. He will require an I&D of the right ulcer. Patient will be made n.p.o. after midnight and Lovenox will be discontinued. Plan for I&D tomorrow afternoon with Dr. Duncan. History of Present Illness Reason for Consultation: Right heel diabetic ulcer Attending Physician: Jessica Vega MD History of Present Illness Is a 65-year-old male with significant past medical history of CAD status post CABG in 2003, IDDM 2, HTN, HLD chronic right calcaneal osteomyelitis, chronic right diabetic foot ulcer. The patient was apparently seen late in the year last year in May for a worse type of infection of his lower extremity which started at his heel and had progressed up to the lower portion of his calf. He was seen by an orthopedic group at that time and offered BKA of which the patient did not want. He was then started on IV antibiotics for 6 weeks and continued wound care. The patient states that over that time he had gotten better. He states that after his IV antibiotics, he was placed on oral antibiotics. He is no longer on oral antibiotics and states that it's been about 3 to 4 weeks since last taking any. He has continued wound care at the [facility] wound care center.Previous wound care image on 01-24 did show an ulceration with some small amount of eschar and maceration around part of the edge. Mild erythema of the heel. No obvious purulence noted on the picture. At that time that the patient was recommended he check to the ER to rule out cellulitis of which the patient refused. He was then seen by his primary care provider on 01/10/2021. The patient had had an MRI of the foot on 12/07/2020 which showed no fluid collections but did show cortical irregularity involving the posterior lateral aspect of the calcaneus with patchy calcaneal bone marrow edema and enhancement. They felt this was nonspecific but suspicious for osteomyelitis. At that point, they had the patient come to the emergency room. He was seen by the hospitalist staff and was admitted for further care. We have been asked to see him for his chronic ulcer of his right foot. Patient currently awake and alert. Wound care nursing present. He is in no acute distress, pleasant and cooperative. He is not having much in the way of pain. Allergies Allergy/AdvReac Type Severity Reaction Status Date / Time No Known Allergies Allergy Verified 01/10/21 14:47 Home Medications Medication Instructions Recorded Confirmed Type aspirin 81 mg PO DAILY #30 tab 02/07/20 01/10/21 Rx atorvastatin 40 mg PO QAM #30 tab 02/07/20 01/10/21 Rx lisinopril [Zestril] 5 mg PO QAM #30 tab 02/07/20 01/10/21 Rx metformin 750 mg tablet,extended 1,500 mg PO QPM tab 08/18/20 01/10/21 History release 24 hr gabapentin 300 mg PO BID 01/10/21 01/10/21 History gabapentin 600 mg PO DAILY@1800 01/10/21 01/10/21 History insulin regular human [Novolin R 20 unit SUBCUT BID 01/10/21 01/10/21 History Regular U-100 Insuln] metoprolol succinate 12.5 mg PO DAILY 01/10/21 01/10/21 History Patient History Medical History Alcohol abuse Anemia CAD (coronary artery disease) Diabetes mellitus Diabetic ulcer of right heel Neuropathy Osteomyelitis Osteomyelitis T2DM (type 2 diabetes mellitus) Surgical History History of coronary artery bypass graft x 3 History of foot surgery Surgical debridement to R heel History of vasectomy S/P PICC central line placement Family History Father Multiple myeloma Diabetes Social History Smoking Status: Never smoker Second Hand Exposure: Yes; Do You Dip or Chew Tobacco: No; Hx Alcohol Use: Yes Alcohol type: beer Alcohol Intake Frequency: 2-3 x/Week Hx Substance Use: No Preferred Language: Welsh Communication Ability: [employer] Required: No Beliefs That Will Affect Care: None marital status: Current Living Situation: Spouse current occupational status: retired How many Children do You have: 2 How many Children do You have Comment: two daughters with one that lives close to pt. able to assist with care as needed. Feels Safe at Home: Yes Safety Concerns: Feels Safe At This Time during the past year weight has: remained stable Assistive Devices: None Review of Systems Review of Systems: All systems reviewed & are unremarkable except as noted in HPI & below Physical Exam Physical Exam: On examination, the patient is alert and oriented x3. No acute distress, pleasant cooperative. On examination of his right heel, there is a noted Optifoam dressing on the lateral aspect of the right heel. This has mild to moderate drainage on it. The Optifoam is removed. It reveals a 2-1/2 to 3 cm long ulceration by approximately 2 cm in width. There is only mild erythema noted at this time. No obvious purulent drainage and or odor. The wound edges have a grayish-brown tint to it. Wound care nurse probed the wound and is approximately 8 mm to a centimeter deep. It does and on a firm prominence at the bottom. Wound dressed with Aquacel Ag, 4 x 4's and a Kerlix. Results & Data ([facility]) Vital Signs (Past 12 Hours) Vital Signs Temp Pulse Resp BP Pulse Ox 01/11/21 12:08 36.3 C L 61 18 168/81 H 97 01/11/21 07:40 36.7 C 65 20 169/81 H 97 01/11/21 03:30 36.8 C 67 18 124/73 99 Diagnostic Findings Patient: SLADE MENDOZA Shirarogelio Date: 01/10/21MR#: [id number]: [address] RDAcct ID:[id number]: Date: 1955[facility] Zip: [place], [place] [address]Ljl: 65Location: EDSex: MRoom/Bed:Att Phy:Diagnosis: RT HEEL INFECTION, NOT HEELINGPri Phy: Karlos Johnson MDService Date: 01/10/21Fam Phy:Interpreting Phy: Scar Calvert [facility] Phy: Ordering Phy: Kate Chambers PA-C cc: ~ RIGHT FOOT CT CT DOSE: 228.19 mGy.cm HISTORY: R heel osteomyelitis. Follow-up., unable to do mri due to + covid TECHNIQUE: Multiaxial CT images of the right foot were performed and reformatted in the sagittal and coronal plane without the use of contrast. A dose lowering technique was utilized adhering to the principles of ALARA. COMPARISON: Right heel 01/10/2021. Right ankle MRI 08/22/2020. FINDINGS: There is a 2 cm focal skin ulceration within the posterior lateral aspect of the heel. Deep to the skin ulceration there is evidence for mild cortical irregularity/destruction and subcortical sclerosis. This favors an acute or chronic osteomyelitis. This is similar to the prior study. No fractures identified within the calcaneus. There are plantar and posterior calcaneal spurs noted. Extensive soft tissue edema seen throughout the ankle and hindfoot. Diffuse thickening of the Achilles tendon is partially visualized and better appreciated on the prior MRI. This is also similar to the prior study. Vascular calcifications are noted. IMPRESSION: 1. A 2 cm focal skin ulceration within the posterior lateral aspect of the heel. 2. Deep to the skin ulceration there is evidence for mild cortical irregularity/destruction and subcortical sclerosis. This favors an acute on chronic osteomyelitis and is similar to the prior MRI. 3. Diffuse soft tissue edema seen throughout the ankle and hindfoot. 4. Diffuse thickening of the Achilles tendon which is better appreciated on the prior MRI. XR calcaneus RT min 2V CLINICAL HISTORY: Right heel ulcer. COMPARISON STUDY: Right ankle MRI 08/22/2020. FINDINGS: There is persistent cortical destruction within the posterior lateral aspect of the calcaneus with an overlying skin ulceration. This is similar to the prior MRI. There are plantar and posterior calcaneal spurs. There is retr ocalcaneal soft tissue swelling. Nondisplaced fracture within the posterior calcaneus is also noted. This is similar to the prior MRI. IMPRESSION: 1. No change in the cortical destruction within the posterior lateral aspect of the calcaneus compared to the prior MRI. This consistent with a persistent osteomyelitis. 2. There is a small nondisplaced fracture within the posterior medial aspect of the calcaneus which is also unchanged.
--- NOTE | 2021-01-11 14:28 | Pharmacy Report ---
Pharmacy Glycemic Short Note 2 - Date of Service January 11, 2021 - Glycemic Short BSG Results (Last 24 hours): 01/10/21 01/11/21 01/11/21 21:12 06:43 06:48 Glucose POC Glucose 114 H 64 L* 69 L* 01/11/21 01/11/21 01/11/21 07:21 08:12 12:01 Glucose 87 POC Glucose 108 H 77 OUTPATIENT ANTIDIABETIC REGIMEN: * Regular insulins 20 units BID with meals * Metformin 1500mg PO QPM * A1c 6.7% 01/11/21 ASSESSMENT: * 65 year old male admitted with osteomyelitis of his left heel, on IV antibiotics. * Patient NPO since admission, was given 15 units of NPH last night, and blood sugars have been 69-108mg/dl * Patient starting diet now, will utilize basal bolus insulin while inpatient PLAN FOR INPATIENT GLYCEMIC CONTROL: * Hold outpatient oral diabetes medications * Basal insulin * NPH 10 units SQ daily with dinner * Bolus insulin * NovoLog per scale ACHS or Q6hrs while NPO * Goal Range: Low 110 mg/dL - High 140 mg/dL * Correction Factor: 12 mg/dL/unit * Nutritional / Prandial insulin per carb ratio of 1 unit per 4 grams CHO consumed PLAN FOR DISCHARGE: * to be determined
--- NOTE | 2021-01-11 14:32 | Hospitalist Progress Note ---
Date of Service January 11, 2021 Assessment & Plan (1) Osteomyelitis: (2) Diabetic ulcer of right heel: 65-year-old male who has significant past medical history of CAD status post CABG in 2003, IDDM 2, HTN, HLD chronic right calcaneal osteomyelitis, chronic right diabetic foot ulcer who presents ED secondary to worsening right heel ulcer for several weeks. MRI on 12/07 revealed patchy calcaneal bone marrow edema and enhancement suspicious for osteomyelitis. Cortical irregularity involving the posterior lateral aspect of calcaneus may represent postsurgical changes from prior debridement CT foot reports acute on chronic osteomyelitis He hads worsening erythema, enlargement and clear drainage coming from wound. He did not meet SIRS or sepsis criteria on admission Currently on IV daptomycin and cefepime For follow-up ID consult already ordered Ortho on board and planning OR tomorrow Follow-up wound culture Follow-up blood cultures (3) T2DM (type 2 diabetes mellitus): Last A1c 6.3 on 08/10/2020 A1c 6.7 today Hold home Metformin Pharmacy on board for insulin management and glycemic control (4) CAD (coronary artery disease): History of CABG in 2003 EKG reviewed and unchanged from 05/19/2020 He did have echocardiogram in 07/23/2019 which revealed EF 55 to 60% Continue ASA, atorvastatin, lisinopril and metoprolol No chest pain or shortness of breath (5) Anemia: Normocytic anemia Hemoglobin is 11.7 today Likely secondary to chronic disease in setting of chronic osteomyelitis (6) SARS-CoV-2 positive: Patient had mild COVID-19 infection 05/2020 with fever and URI symptoms x1 day while at [facility] He has not yet received COVID-19 vaccination SARS-CoV-2 positive today, he is asymptomatic, chest x-ray without acute abnormality Currently on Covid isolation due to greater than 90 days post initial infection Currently asymptomatic (7) DVT prophylaxis: Lovenox on hold for now in view of OR tomorrow. Resume afterwards PCP: Elizabeth FULL CODE Admission and Anticipated Discharge Date Admission Date: January 10, 2021 Subjective 65-year-old male who has significant past medical history of CAD status post CABG in 2003, IDDM 2, HTN, HLD chronic right calcaneal osteomyelitis, chronic right diabetic foot ulcer who presents ED secondary to worsening right heel ulcer for several weeks. Being managed for acute on chronic osteomyelitis Patient seen and examined Reports no new complaints. Reports chronic lower extremity numbness and paresthesias. No pain at this time. No fevers, chills, nausea vomiting No cough, shortness of breath, congestion, rhinorrhea, sore throat Review of Systems Review of Systems: All systems reviewed & are unremarkable except as noted in Subjective Physical Exam Constitutional: + well hydrated; no acute distress Eyes: PERRL, conjunctivae normal, anicteric sclerae ENMT: external ear and nose normal, oropharynx normal Respiratory: normal respiratory effort, lungs clear to auscultation Cardiovascular: Rate/Rhythm: regular rate and regular rhythm S1-S2. No pedal edema Gastrointestinal (Abdomen): normal bowel sounds, soft, nontender, no hepatosplenomegaly Musculoskeletal: Clean dressing over right foot Neurologic: PERRL, EOMI, accommodation nl, no face palsy, no dysarthria Reduce tactile sensation in both feet Psychiatric: A+Ox3, euthymic affect Genitourinary: no CVA tenderness Results & Data Results & Data ([facility]) Vital Signs (Past 12 Hours) Vital Signs Temp Pulse Resp BP Pulse Ox 01/11/21 12:08 36.3 C L 61 18 168/81 H 97 01/11/21 07:40 36.7 C 65 20 169/81 H 97 01/11/21 03:30 36.8 C 67 18 124/73 99 Laboratory Results Abnormal lab results 01/10/21 01/10/21 01/10/21 Range/Units 17:57 17:57 21:12 WBC (4.8-10.8) K/uL RBC (4.7-6.1) M/uL Hgb (14.0-18.0) g/dL Hct (42-52) % Plt Count (130-400) K/uL Lymph # (Auto) (1.2-3.4) K/uL ESR 39 H (0-20) mm/hr POC Glucose 114 H (70-99) mg/dl Hemoglobin A1c (4.5-5.6) % AST (15-37) U/L C-Reactive Protein 0.93 H (0-0.29) mg/dl Albumin (3.4-5.0) gm/dl Globulin (2.5-4.0) gm/dl Albumin/Globulin Ratio (0.9-2) 01/11/21 01/11/21 01/11/21 Range/Units 06:43 06:48 07:21 WBC (4.8-10.8) K/uL RBC (4.7-6.1) M/uL Hgb (14.0-18.0) g/dL Hct (42-52) % Plt Count (130-400) K/uL Lymph # (Auto) (1.2-3.4) K/uL ESR (0-20) mm/hr POC Glucose 64 L* 69 L* 108 H (70-99) mg/dl Hemoglobin A1c (4.5-5.6) % AST (15-37) U/L C-Reactive Protein (0-0.29) mg/dl Albumin (3.4-5.0) gm/dl Globulin (2.5-4.0) gm/dl Albumin/Globulin Ratio (0.9-2) 01/11/21 01/11/21 01/11/21 Range/Units 08:12 08:12 08:12 WBC 3.37 L (4.8-10.8) K/uL RBC 4.08 L (4.7-6.1) M/uL Hgb 11.7 L (14.0-18.0) g/dL Hct 33.5 L (42-52) % Plt Count 126 L (130-400) K/uL Lymph # (Auto) 0.55 L (1.2-3.4) K/uL ESR (0-20) mm/hr POC Glucose (70-99) mg/dl Hemoglobin A1c 6.7 H (4.5-5.6) % AST 12 L (15-37) U/L C-Reactive Protein (0-0.29) mg/dl Albumin 3.0 L (3.4-5.0) gm/dl Globulin 4.1 H (2.5-4.0) gm/dl Albumin/Globulin Ratio 0.7 L (0.9-2) 01/11/21 Range/Units 14:56 WBC (4.8-10.8) K/uL RBC (4.7-6.1) M/uL Hgb (14.0-18.0) g/dL Hct (42-52) % Plt Count (130-400) K/uL Lymph # (Auto) (1.2-3.4) K/uL ESR (0-20) mm/hr POC Glucose 66 L* (70-99) mg/dl Hemoglobin A1c (4.5-5.6) % AST (15-37) U/L C-Reactive Protein (0-0.29) mg/dl Albumin (3.4-5.0) gm/dl Globulin (2.5-4.0) gm/dl Albumin/Globulin Ratio (0.9-2) (1) CAD (coronary artery disease) Coronary Disease-Associated Artery/Lesion type: [place] artery [place] vs. transplanted heart: [place] heart Associated angina: without angina Qualified Code(s): I25.10 - Atherosclerotic heart disease of [place] coronary artery without angina pectoris
[2021-01-11] MEDS ORDERED: INSULIN HUMAN NPH SQ SCH (17:00)
[2021-01-11] MEDS: DAPTOmycin 500 MG in SYRINGE 0 ML IV SCH (18:51)
[2021-01-12] MEDS: D5W AND NSS 1,000 ML IV SCH ×2 (00:31→11:45)
[2021-01-12] MEDS: CEFEPIME 2,000 MG in SYRINGE 0 ML IV SCH ×3 (06:24→21:22)
[2021-01-12] MEDS: GABAPENTIN 300 MG CAP PO SCH ×3 (06:25→18:00)
[2021-01-12] MEDS: INSULIN ASPART 100 UNITS/ML 3 ML PEN SC SCH ×4 (06:34→21:59)
[2021-01-12] MEDS ORDERED: INSULIN HUMAN NPH SQ SCH (08:00)
[2021-01-12] MEDS: METOPROLOL SUCC 25MG EXT REL TAB PO SCH (08:31)
[2021-01-12] MEDS: lisinopril 5 MG TAB PO SCH (08:32)
[2021-01-12] MEDS: ATORVASTATIN 40 MG TAB PO SCH (08:33)
[2021-01-12 08:47] LABS: Hematocrit (blood only) 33.5 % (42-52); Hemoglobin 11.7 g/dL (14.0-18.0); Mean Corpuscular Hemoglobin 28.7 pg (25-34); Mean Corpuscular Hgb Conc 34.9 g/dL (32-36); Mean Corpuscular Volume 82.3 fL (80-100); Platelet Count 117 K/uL (130-400); RDW Coefficient of Variation 12.9 % (11.5-14.5); RDW Standard Deviation 38.6 fL (36.4-46.3); Red Blood Count 4.07 M/uL (4.7-6.1); White Blood Count 3.44 K/uL (4.8-10.8)
[2021-01-12 09:08] LABS: BUN Creatinine Ratio 17.1 (10-20); C Reactive Protein 0.68 mg/dl (0-0.29); Calcium 9.1 mg/dl (8.5-10.1); Creatinine Clr Calc Pharmacy 71.6 ml/min; Est GFR (African American) 80.9 ml/min; Est GFR (Non-African American) 69.8 ml/min; Potassium 4.8 mmol/L (3.5-5.1)
--- NOTE | 2021-01-12 09:09 | Hospitalist Progress Note ---
Date of Service January 12, 2021 Assessment & Plan (1) Osteomyelitis: (2) Diabetic ulcer of right heel: 65-year-old male who has significant past medical history of CAD status post CABG in 2003, IDDM 2, HTN, HLD chronic right calcaneal osteomyelitis, chronic right diabetic foot ulcer who presents ED secondary to worsening right heel ulcer for several weeks. MRI on 12/07 revealed patchy calcaneal bone marrow edema and enhancement suspicious for osteomyelitis. Cortical irregularity involving the posterior lateral aspect of calcaneus may represent postsurgical changes from prior debridement CT foot reports acute on chronic osteomyelitis He hads worsening erythema, enlargement and clear drainage coming from wound. He did not meet SIRS or sepsis criteria on admission Currently on IV daptomycin and cefepime Awaiting ID consult Ortho on board and planning OR this morning Wound culture grow staph spp. Follow up final speciation and sensitivities Blood cultures negative so far Will follow up post op (3) T2DM (type 2 diabetes mellitus): Last A1c 6.3 on 08/10/2020 A1c 6.7 today Hold home Metformin Pharmacy on board for insulin management and glycemic control Continue d5 saline for now while NPO. Resume diet post op (4) CAD (coronary artery disease): History of CABG in 2003 EKG reviewed and unchanged from 05/19/2020 He did have echocardiogram in 07/23/2019 which revealed EF 55 to 60% Continue ASA, atorvastatin, lisinopril and metoprolol No chest pain or shortness of breath (5) Anemia: Normocytic anemia Hemoglobin is 11.7 today Likely secondary to chronic disease in setting of chronic osteomyelitis (6) SARS-CoV-2 positive: Patient had mild COVID-19 infection 05/2020 with fever and URI symptoms x1 day while at [facility] He has not yet received COVID-19 vaccination SARS-CoV-2 positive today, he is asymptomatic, chest x-ray without acute abnormality Currently on Covid isolation due to greater than 90 days post initial infection Currently asymptomatic (7) DVT prophylaxis: Lovenox on hold for now in view of OR tomorrow. Resume afterwards PCP: Elizabeth FULL CODE Admission and Anticipated Discharge Date Admission Date: January 10, 2021 Subjective 65-year-old male who has significant past medical history of CAD status post CABG in 2003, IDDM 2, HTN, HLD chronic right calcaneal osteomyelitis, chronic right diabetic foot ulcer who presents ED secondary to worsening right heel ulcer for several weeks. Being managed for acute on chronic osteomyelitis Patient seen and examined No pain on right foot ulcer No fevers, chills, nausea, vomiting Denied any other complaints except for chronic LE neuropathy (paresthesia/numbness) Had hypoglycemia yesterday evening and was put on D5 saline Review of Systems Review of Systems: All systems reviewed & are unremarkable except as noted in Subjective Physical Exam Constitutional: + well hydrated; no acute distress Eyes: PERRL, conjunctivae normal, anicteric sclerae ENMT: external ear and nose normal, oropharynx normal Respiratory: normal respiratory effort, lungs clear to auscultation Cardiovascular: Rate/Rhythm: regular rate and regular rhythm S1 S2 Gastrointestinal (Abdomen): normal bowel sounds, soft, nontender, no hepatosplenomegaly Musculoskeletal: Ulcer on lateral side of heel of right foot. No drainage expressed at this time. Mildly stained dressing. Neurologic: PERRL, EOMI, accommodation nl, no face palsy, no dysarthria Reduced tactile sensation in both feet Psychiatric: A+Ox3, euthymic affect Genitourinary: no CVA tenderness Results & Data Results & Data ([facility]) Vital Signs (Past 12 Hours) Vital Signs Temp Pulse Pulse Resp BP Pulse Ox 01/12/21 07:13 65 01/12/21 03:45 36.5 C 63 18 112/69 99 01/12/21 00:08 36.6 C 66 18 111/67 97 01/12/21 00:00 76 Laboratory Results Abnormal lab results 01/11/21 01/11/21 01/11/21 Range/Units 08:12 14:56 17:11 WBC (4.8-10.8) K/uL RBC (4.7-6.1) M/uL Hgb (14.0-18.0) g/dL Hct (42-52) % Plt Count (130-400) K/uL BUN (7-18) mg/dl Glucose (70-99) mg/dl POC Glucose 66 L* 232 H (70-99) mg/dl Hemoglobin A1c 6.7 H (4.5-5.6) % C-Reactive Protein (0-0.29) mg/dl 01/11/21 01/12/21 01/12/21 Range/Units 20:31 00:07 06:21 WBC (4.8-10.8) K/uL RBC (4.7-6.1) M/uL Hgb (14.0-18.0) g/dL Hct (42-52) % Plt Count (130-400) K/uL BUN (7-18) mg/dl Glucose (70-99) mg/dl POC Glucose 205 H 128 H 141 H (70-99) mg/dl Hemoglobin A1c (4.5-5.6) % C-Reactive Protein (0-0.29) mg/dl 01/12/21 01/12/21 Range/Units 08:23 08:23 WBC 3.44 L (4.8-10.8) K/uL RBC 4.07 L (4.7-6.1) M/uL Hgb 11.7 L (14.0-18.0) g/dL Hct 33.5 L (42-52) % Plt Count 117 L (130-400) K/uL BUN 19 H (7-18) mg/dl Glucose 148 H (70-99) mg/dl POC Glucose (70-99) mg/dl Hemoglobin A1c (4.5-5.6) % C-Reactive Protein 0.68 H (0-0.29) mg/dl (1) CAD (coronary artery disease) Coronary Disease-Associated Artery/Lesion type: [place] artery [place] vs. transplanted heart: [place] heart Associated angina: without angina Qualified Code(s): I25.10 - Atherosclerotic heart disease of [place] coronary artery without angina pectoris
--- NOTE | 2021-01-12 14:47 | Pharmacy Report ---
Pharmacy Glycemic Short Note 2 - Date of Service January 12, 2021 - Glycemic Short BSG Results (Last 24 hours): 01/11/21 01/11/21 01/11/21 14:56 14:57 15:00 Glucose POC Glucose 66 L* 72 77 01/11/21 01/11/21 01/12/21 17:11 20:31 00:07 Glucose POC Glucose 232 H 205 H 128 H 01/12/21 01/12/21 01/12/21 06:21 08:23 12:03 Glucose 148 H POC Glucose 141 H 144 H OUTPATIENT ANTIDIABETIC REGIMEN: * Regular insulins 20 units BID with meals * Metformin 1500mg PO QPM * A1c 6.7% 01/11/21 ASSESSMENT: 01/12/21: * BSG control fluctuated over the past 24 hours. * Patient was hypoglycemic yesterday morning and then became hyperglycemic after resuming a diet. * He received 35 units of insulin: 10 units of NPH, 25 units of Novolog * Fasting BSG of 141 mg/dL this morning. A partial dose of NPH was ordered for NPO status. * Patient is s/p I&D of heel ulcer. Anticipate resumption of diet this evening. 01/11/21: * 65 year old male admitted with osteomyelitis of his left heel, on IV an tibiotics. * Patient NPO since admission, was given 15 units of NPH last night, and blood sugars have been 69-108mg/dl * Patient starting diet now, will utilize basal bolus insulin while inpatient PLAN FOR INPATIENT GLYCEMIC CONTROL: * Hold outpatient oral diabetes medications * Basal insulin * Change to NPH SQ BID per scale: * 5 units for BSG < 140 * 10 units for BSG 140 -180 * 15 units for BSG > 180 * Bolus insulin - no change * NovoLog per scale ACHS or Q6hrs while NPO * Goal Range: Low 110 mg/dL - High 140 mg/dL * Correction Factor: 12 mg/dL/unit * Nutritional / Prandial insulin per carb ratio of 1 unit per 4 grams CHO consumed PLAN FOR DISCHARGE: * to be determined
[2021-01-12] MEDS ORDERED: VANCOMYCIN HCL 1000MG/20ML VIAL ONE (14:48)
[2021-01-12] MEDS ORDERED: GENTAMICIN SULFATE 40 MG/ML 2 ML VIAL ONE (14:48)
[2021-01-12] MEDS ORDERED: fentaNYL citrate 100 MCG/2 ML VIAL ONE (14:58)
[2021-01-12] MEDS ORDERED: MIDAZOLAM HCL 1 MG/ML 2ML VIAL ONE (14:58)
[2021-01-12] MEDS ORDERED: LIDOCAINE 2% 2 ML VIAL/AMP(20MG/ML) INFIL ONE (15:00)
[2021-01-12] MEDS ORDERED: PROPOFOL IV EMULSION 10 MG/ML 20 ML VIAL IV ONE (15:02)
[2021-01-12] MEDS ORDERED: BUPIVACAINE 0.5 % 5 MG/1 ML MPF 30ML VIAL ONE (15:04)
[2021-01-12] MEDS ORDERED: ONDANSETRON INJ 2 MG/ML 2 ML VIAL ONE (15:05)
--- NOTE | 2021-01-12 15:24 | Anesthesiology Consultation ---
Date of Service January 12, 2021 Assessment & Plan (1) Encounter for pre-operative examination: Chart Review Chart Review: Acceptable Risk for Surgery and Patient NOT seen in Pre Admission Testing Consults Requested none History Surgery Operation Date: 01/12/21 08:20 Proposed Procedures p Incision and Drainage Right Heel Ulcer Possible Implantation of Stimulan Beads - Marcos Duncan DO Height/Weight Height: 5 ft 11 in Weight: 81.8 kg Allergies Allergy/AdvReac Type Severity Reaction Status Date / Time No Known Allergies Allergy Verified 01/10/21 14:47 Medications Home Medications Medication Instructions Recorded Confirmed Last Taken aspirin 81 mg PO DAILY #30 tab 02/07/20 01/10/21 01/10/21 atorvastatin 40 mg PO QAM #30 tab 02/07/20 01/10/21 01/10/21 lisinopril [Zestril] 5 mg PO QAM #30 tab 02/07/20 01/10/21 01/10/21 metformin 750 mg tablet,extended 1,500 mg PO QPM tab 08/18/20 01/10/21 01/09/21 release 24 hr gabapentin 300 mg PO BID 01/10/21 01/10/21 01/10/21 gabapentin 600 mg PO DAILY@1800 01/10/21 01/10/21 Unknown insulin regular human [Novolin R 20 unit SUBCUT BID 01/10/21 01/10/21 Unknown Regular U-100 Insuln] metoprolol succinate 12.5 mg PO DAILY 01/10/21 01/10/21 Unknown Active Medications Generic Name Dose Route Start Last Admin Trade Name Freq PRN Reason Stop Dose Admin Aspirin 81 mg 01/11/21 09:00 01/11/21 09:29 Aspirin 81 Mg Ectab PO 02/10/21 08:59 81 mg DAILY AKUA Administration Atorvastatin Calcium 40 mg 01/11/21 09:00 01/12/21 08:33 Atorvastatin 40 Mg Tab PO 02/10/21 08:59 40 mg QAM AKUA Administration Dextrose 25 - 50 ml 01/10/21 18:27 01/11/21 07:16 Dextrose 50% 50 Ml Syringe IV 02/09/21 18:26 25 ml UD PRN Administration Hypoglycemia Protocol Protocol Gabapentin 600 mg 01/10/21 18:27 01/11/21 18:11 Gabapentin 300 Mg Cap PO 02/09/21 18:26 600 mg DAILY@1800 AKUA Administration Gabapentin 300 mg 01/11/21 06:00 01/12/21 12:20 Gabapentin 300 Mg Cap PO 02/10/21 05:59 300 mg BID@0600,1200 AKUA Administration Cefepime HCl 2,000 mg/ Syringe 20 mls @ 5 mls/min 01/10/21 22:00 01/12/21 14:18 IV 02/21/21 21:59 5 mls/min Q8H AKUA Administration Dextrose/Sodium Chloride 1,000 mls @ 80 mls/hr 01/12/21 01:00 01/12/21 11:45 D5w And Nss IV 02/11/21 00:59 80 mls/hr .[id number] AKUA Administration Insulin Aspart 0 units 01/11/21 16:30 01/12/21 13:15 Insulin Aspart 100 Units/Ml 3 Ml Pen SC 02/10/21 16:29 1 units ACHS AKUA Administration Protocol Lisinopril 5 mg 01/11/21 09:00 01/12/21 08:32 Lisinopril 5 Mg Tab PO 02/10/21 08:59 5 mg QAM AKUA Administration Metoprolol Succinate 12.5 mg 01/11/21 09:00 01/12/21 08:31 Metoprolol Succ 25mg Ext Rel Tab PO 02/10/21 08:59 12.5 mg DAILY AKUA Administration NPO Date Last Intake of Fluids: 01/12/21 Time Last Intake of Fluids: 12:30 Last Intake of Fluids Comment: med with sip of water Date Last Intake of Solids: 01/11/21 Time Last Intake of Solids: 20:00 Past Medical History Medical History Alcohol abuse Anemia CAD (coronary artery disease) Diabetes mellitus Diabetic ulcer of right heel Neuropathy Osteomyelitis Osteomyelitis T2DM (type 2 diabetes mellitus) Past Family History Family History Father Multiple myeloma Diabetes Past Surgical History Surgical History History of coronary artery bypass graft x 3 History of foot surgery Surgical debridement to R heel History of vasectomy S/P PICC central line placement Social History Smoking Status: Never smoker Do You Dip or Chew Tobacco: No Hx Alcohol Use: Yes Alcohol type: beer alcohol intake frequency: 0-2 drinks per day Hx Substance Use: No substance use type: does not use Physical Exam Vital Signs Last Vital Signs Temp 36.9 C 01/12/21 14:59 Pulse 67 01/12/21 14:59 Resp 18 01/12/21 14:59 BP 174/73 H 01/12/21 14:59 Pulse Ox 98 01/12/21 14:59 Testing Laboratory Results 01/12/21 08:23 01/12/21 08:23 Hemoglobin A1c 6.7 % (4.5-5.6) H 01/11/21 08:12 01/10/21 17:16 Gram Stain - Final Foot,Right Wound Culture - Final Staphylococcus aureus Corynebacterium species 01/10/21 16:51 Aerobic Blood Culture - Preliminary Blood No growth in Aerobic bottle after 24 hours. Anaerobic Blood Culture - Preliminary No growth in Anaerobic bottle after 24 hours. 01/10/21 16:43 Aerobic Blood Culture - Preliminary Blood No growth in Aerobic bottle after 24 hours. Anaerobic Blood Culture - Preliminary No growth in Anaerobic bottle after 24 hours. 01/12/21 01/12/21 12:03 06:21 POC Glucose 144 H 141 H Electrocardiogram Date: 01/10/21 DICTATED BY: Izaiah Ibarra MD Test Reason : Blood Pressure : / mmHG Vent. Rate : 060 BPM Atrial Rate : 060 BPM P-R Int : 158 ms QRS Dur : 094 ms QT Int : 410 ms P-R-T Axes : 002 -21 -03 degrees QTc Int : 410 ms Normal sinus rhythm Possible Inferior infarct (cited on or before 12-JAN-2012) Abnormal ECG When compared with ECG of 19-MAY-2020 15:59, Premature ventricular complexes are no longer Present Premature atrial complexes are no longer Present Confirmed by Izaiah Ibarra ([id number]) on 01/11/2021 7:06:49 AM
[2021-01-12] MEDS ORDERED: ATROPINE SULFATE 0.1 MG/ML 10ML SYR IV PRN (15:28)
[2021-01-12] MEDS ORDERED: HYDROmorphone INJ 1 MG/ML SYRINGE IV PRN (15:28)
[2021-01-12] MEDS ORDERED: ONDANSETRON INJ 2 MG/ML 2 ML VIAL IV PRN (15:28)
[2021-01-12] MEDS ORDERED: fentaNYL citrate 100 MCG/2 ML VIAL IV PRN (15:28)
[2021-01-12] MEDS ORDERED: ePHEDrine sulfate 50 MG/ML AMP IV PRN (15:28)
--- NOTE | 2021-01-12 15:48 | History & Physical Bridge Note ---
Date of Service January 12, 2021 History & Physical Bridge Note I have examined the patient, reviewed the History & Physical and in the interval since the performance of the History & Physical I have noted the following changes of clinical significance: no changes noted
[2021-01-12] MEDS: ASPIRIN 81 MG ECTAB PO SCH (16:53)
[2021-01-12] MEDS ORDERED: NALOXONE HCL 0.4 MG/1 ML VIAL/CARP IV PRN (16:56)
--- NOTE | 2021-01-12 17:06 | Post Operative Brief Note ---
Immediate Post Op Note v1 Date of Surgery January 12, 2021 Pre & Post Diagnosis Operation Date: 01/12/21 08:20 Pre-Op Diagnosis: Right heel diabetic ulceration 3.5 cm x 2.0 cm x 1.0 cm, calcaneal osteomyelitis. Post-Op Diagnosis: Right heel diabetic ulceration 3.5 cm x 2.0 cm x 1.0 cm, calcaneal osteomyelitis, abscess right heel I identified the patient and participated in the time-out.: Yes Procedure Operation Date: 01/12/21 08:20 Actual Procedures p irrigation debridement right diabetic heel ulceration 3.5 cm x 2.0 cm x 1.0 cm, irrigation and debridement right heel including skin, subcutaneous tissue and fascia, debridement calcaneal osteomyelitis, implantation stimulant and antibiotic beads, incision and drainage abscess deep right heel (Right) - Marcos Duncan DO Surgeon Marcos Duncan DO Contract Law Specialist None Estimated Blood Loss 3 Findings Consistent with Post-Op Diagnosis Specimens Aerobic anaerobic Gram stain right heel deep Calcaneal bone and tissue for pathological evaluation Anesthesia Type MAC Regional Complications none Disposition Accompanied Patient To Recovery: No Disposition: Recovery Room
--- NOTE | 2021-01-12 17:20 | Anesthesiology Progress Note ---
Date of Service January 12, 2021 Anesthesia Post Procedure Vital Signs Vital Signs: Temp Pulse Pulse Resp BP Pulse Ox 01/12/21 14:59 36.9 C 67 18 174/73 H 98 01/12/21 10:53 36.7 C 69 18 147/80 H 100 01/12/21 07:13 65 01/12/21 03:45 36.5 C 63 18 112/69 99 01/12/21 00:08 36.6 C 66 18 111/67 97 01/12/21 00:00 76 01/11/21 20:31 36.8 C 85 18 134/78 98 Transfer of Care Handoff Completed per policy Notes Mental Status: alert / awake / arousable and participated in evaluation Patient Amnestic to Procedure: Yes Nausea / Vomiting: adequately controlled Pain: adequately controlled Airway Patency, RR, SpO2: stable & adequate BP & HR: stable & adequate Hydration State: stable & adequate Anesthetic Complications: no major complications apparent and Pt Satisfied with anesthetic care
[2021-01-12] MEDS: INSULIN HUMAN NPH SQ SCH (18:13)
--- NOTE | 2021-01-12 18:52 | Operative Report (OR) ---
DATE OF PROCEDURE: 01/10/2021 PREOPERATIVE DIAGNOSES: 1. Right heel diabetic ulceration measuring 3.5 cm x 2.0 cmx 1.0 cm. 2. Osteomyelitis, right calcaneus. POSTOPERATIVE DIAGNOSES: 1. Right heel diabetic ulceration measuring 3.5 cm x 2.0 cm x 1.0 cm. 2. Osteomyelitis, right calcaneus. 3. Abscess, right heel. PROCEDURE: 1. Irrigation and debridement of right diabetic heel ulceration, 3.5 cm x 2.0 cm x 1.0 cm. 2. Irrigation and debridement of right heel including skin/subcutaneous tissue and fascia. 3. Debridement of calcaneal osteomyelitis. 4. Implantation of Stimulan antibiotic beads. 5. Incision and drainage of abscess, deep, right heel. SURGEON: Marcos Duncan DO. LEAD SOFTWARE DEVELOPER: None. ANESTHESIA: MAC regional. SPECIMENS: Bone and tissue, right heel for pathological evaluation and aerobic, anaerobic, Gram stai n specimen, deep right heel. DRAINS: None. COMPLICATIONS: None. BLOOD LOSS: 3 mL. PERTINENT HISTORY: This is a 65-year-old gentleman who has had chronic progressive and worsening rig ht heel ulceration with subsequent osteomyelitis. He presented to the Emergency Department on 2020 with worsening right heel ulcer for several weeks. He was initially admitted to the [facility] in 05/2020 with Aerococcus prevotii bacteremia and infected right heel wound, status post bedside debridement, polymicrobial felicia including Prevotella bivia, Alpha strep, Bacteroides pyogenes and Ae rococcus isolated. At that time, the patient was treated with IV Zosyn and ertapenem for 4 to 6 week s. Infection recurred in August when he underwent MRI, which showed extensive infection extending into the calf and also calcaneal osteomyelitis. There was a consultation and attempted a bedside asp iration; however, the collection was "too thick." He was treated with vancomycin and Zosyn and transi tioned to single therapy with Zosyn until mid 10/2020 when he completed 6 weeks of therapy. ____ ext ensive history, and the patient was seen in the clinic by Dr. Johnson. He then referred him to [facility]. At that point, the patient was then admitted to the hospital. The patient was tested for SAMUEL S-CoV-2 and noted to be positive. He had a previous history of SARS-CoV-2 infection in 05/2020. He has had no new respiratory symptoms. He was admitted to the hospitalist service with orthopedics to consult. The patient was then scheduled for surgery after review of the new MRI demonstrated worseni ng osteomyelitis of the heel with open ulceration. All potential risks, benefits, complications, alternatives, rehab potential for incomplete relief of symptoms, need for further surgery, DVT, PE, , persistent pain, swelling, scarring, weakness, ne urovascular injury, wound complications, need for further surgery and/or amputation were discussed wi th the patient. The patient decided to proceed with the procedure as indicated. DESCRIPTION OF PROCEDURE: The patient was taken to the operative suite and placed supine on the tabl e. After review of the consent and identification of appropriate operative site, the patient was sed ated. Tourniquet was placed high on the right thigh over cast padding. Right lower extremity was th en sterilely prepped and draped in the usual sterile fashion, elevated, and tourniquet inflated to 30 0 mmHg. Next, #15 blade scalpel was used to sharply debride the 3.5 cm x 2.0 cm x 1.0 cm posterolate ral right diabetic heel ulcer. Necrotic tissue and slough was then sharply debrided including skin, subcutaneous tissue and fascia. Exposed fascia down to the level of the periosteum. This was debrid ed with a rongeur. Next, exploring the heel pad plantarly, there is a collection of abscess fluid, w hich was entered and then evacuated. After this, incision of the abscess pocket was drained and cure ttage was then performed with a medium-sized curette. Once that was completed, the deep fluid collec tion was sampled for aerobic, anaerobic, Gram stain. Next, the site was irrigated with sterile saline with pulse lavage followed by further debridement down to the level of the calcaneus posterolateral at the site of osteomyelitis as confirmed with radiographs and MRI. Softened bone was encountered. This was then debrided using a combination of rongeur and large curette. The bone fragments harveste d were then sent for pathological evaluation for bone and tissue. Next, after all necrotic debris tissue and devitalized tissue was sharply excised then with a 15-blad e scalpel and a forceps, next the site was then copiously irrigated with pulse lavage, 3 liters of s charity. Once all the tissue was clear and clean, top gloves and top sheet were changed. At this poin t, Stimulan antibiotic beads were created with 2 grams gentamicin, 1 gram vancomycin and once the lena ds had cured, the beads were implanted into the heel pad and around the area of ulceration. These we re implanted deep within the tissue using Prydeinig forceps and then a small bead pouch was then create d using Acticoat Flex dressing using multiple skin natalie. Once this was completed, a sterile compr essive dressing was applied consisting of the Acticoat Flex, sterile 4 x 4s, ABD pads, cast padding, and an Panfilo wrap. The tourniquet was released, and the patient had also received approximately 10 mL of 0.5% Marcaine plain around the incision site for local anesthetic. The patient was awakened and t aken to recovery in stable condition after dropping the tourniquet. Job ID: [id number]
[2021-01-13] MEDS: GABAPENTIN 300 MG CAP PO SCH ×3 (06:08→17:30)
[2021-01-13] MEDS: CEFEPIME 2,000 MG in SYRINGE 0 ML IV SCH ×3 (06:11→21:48)
[2021-01-13] MEDS ORDERED: INSULIN HUMAN NPH SQ ONE (08:15)
--- NOTE | 2021-01-13 08:19 | Communication Note ---
Date of Service: January 13, 2021 Chart reviewed. Patient is POD#1 right heel I&D. no acute issues overnight. Labs pending. VSS. NWB right LE. Will plan on seeing patient tomorrow for evaluation and dressing change.
[2021-01-13 08:23] LABS: Hematocrit (blood only) 35.8 % (42-52); Hemoglobin 12.5 g/dL (14.0-18.0); Mean Corpuscular Hemoglobin 29.3 pg (25-34); Mean Corpuscular Hgb Conc 34.9 g/dL (32-36); Mean Platelet Volume 8.9 fL (7.4-10.4); Platelet Count 135 K/uL (130-400); RDW Standard Deviation 39.3 fL (36.4-46.3); Red Blood Count 4.26 M/uL (4.7-6.1); White Blood Count 5.96 K/uL (4.8-10.8)
[2021-01-13 08:52] LABS: BUN Creatinine Ratio 16.3 (10-20); Calcium 9.3 mg/dl (8.5-10.1); Creatinine Clr Calc Pharmacy 72.3 ml/min; Est GFR (African American) 81.8 ml/min; Est GFR (Non-African American) 70.6 ml/min; Potassium 4.9 mmol/L (3.5-5.1)
[2021-01-13] MEDS: ATORVASTATIN 40 MG TAB PO SCH (09:09)
[2021-01-13] MEDS: lisinopril 5 MG TAB PO SCH (09:09)
[2021-01-13] MEDS: METOPROLOL SUCC 25MG EXT REL TAB PO SCH (09:09)
[2021-01-13] MEDS: ASPIRIN 81 MG ECTAB PO SCH (09:10)
[2021-01-13] MEDS: INSULIN ASPART 100 UNITS/ML 3 ML PEN SC SCH ×4 (09:21→21:00)
--- NOTE | 2021-01-13 10:00 | Hospitalist Progress Note ---
Date of Service January 13, 2021 Assessment & Plan (1) Osteomyelitis: (2) Diabetic ulcer of right heel: 65-year-old male who has significant past medical history of CAD status post CABG in 2003, IDDM 2, HTN, HLD chronic right calcaneal osteomyelitis, chronic right diabetic foot ulcer who presents ED secondary to worsening right heel ulcer for several weeks. MRI on 12/07 revealed patchy calcaneal bone marrow edema and enhancement suspicious for osteomyelitis. Cortical irregularity involving the posterior lateral aspect of calcaneus may represent postsurgical changes from prior debridement CT foot reports acute on chronic osteomyelitis He hads worsening erythema, enlargement and clear drainage coming from wound. He did not meet SIRS or sepsis criteria on admission Status post debridement of ulcer and osteomyelitis yesterday. ID recommendations appreciated. Previous wound culture grow staph spp. Follow up final speciation and sensitivities Blood cultures negative so far Follow-up culture from debridement. Continue cefepime for now. ID recommendations. Follow-up final culture results to determine final antibiotics and ID for duration of treatment PT/OT evaluation (3) T2DM (type 2 diabetes mellitus): Last A1c 6.3 on 08/10/2020 A1c 6.7 Hold home Metformin Pharmacy on board for insulin management and glycemic control (4) CAD (coronary artery disease): History of CABG in 2003 EKG reviewed and unchanged from 05/19/2020 He did have echocardiogram in 07/23/2019 which revealed EF 55 to 60% Continue ASA, atorvastatin, lisinopril and metoprolol No chest pain or shortness of breath (5) Anemia: Normocytic anemia Hemoglobin is 12.5 today Likely secondary to chronic disease in setting of chronic osteomyelitis (6) SARS-CoV-2 positive: Patient had mild COVID-19 infection 05/2020 with fever and URI symptoms x1 [facility] He has not yet received COVID-19 vaccination SARS-CoV-2 positive today, he is asymptomatic, chest x-ray without acute abnormality Currently on Covid isolation due to greater than 90 days post initial infection Currently asymptomatic (7) DVT prophylaxis: Resume Lovenox subcu tomorrow PCP: Elizabeth FULL CODE Admission and Anticipated Discharge Date Admission Date: January 10, 2021 Subjective 65-year-old male who has significant past medical history of CAD status post CABG in 2003, IDDM 2, HTN, HLD chronic right calcaneal osteomyelitis, chronic right diabetic foot ulcer who presents ED secondary to worsening right heel ulcer for several weeks. Being managed for acute on chronic osteomyelitis Patient seen and examined Reports only chronic lower extremity paresthesia and numbness Review of Systems Review of Systems: All systems reviewed & are unremarkable except as noted in Subjective Physical Exam Constitutional: + well hydrated; no acute distress Eyes: PERRL, conjunctivae normal, anicteric sclerae ENMT: external ear and nose normal, oropharynx normal Respiratory: normal respiratory effort, lungs clear to auscultation Cardiovascular: Rate/Rhythm: regular rate and regular rhythm S1-S2 Gastrointestinal (Abdomen): normal bowel sounds, soft, nontender, no hepatosplenomegaly Musculoskeletal: Right foot covered with dressing and bandage Neurologic: PERRL, EOMI, accommodation nl, no face palsy, no dysarthria Psychiatric: A+Ox3, euthymic affect Genitourinary: no CVA tenderness Results & Data Results & Data ([facility]) Vital Signs (Past 12 Hours) Vital Signs Temp Pulse Pulse Resp BP Pulse Ox 01/13/21 07:24 78 01/13/21 03:55 36.6 C 66 18 146/80 H 98 01/13/21 02:12 70 01/12/21 23:00 36.6 C 68 18 145/79 H 96 Laboratory Results Abnormal lab results 01/12/21 01/12/21 01/12/21 Range/Units 12:03 17:15 20:10 RBC (4.7-6.1) M/uL Hgb (14.0-18.0) g/dL Hct (42-52) % Glucose (70-99) mg/dl POC Glucose 144 H 113 H 147 H (70-99) mg/dl 01/13/21 01/13/21 01/13/21 Range/Units 07:36 08:05 08:05 RBC 4.26 L (4.7-6.1) M/uL Hgb 12.5 L (14.0-18.0) g/dL Hct 35.8 L (42-52) % Glucose 118 H (70-99) mg/dl POC Glucose 122 H (70-99) mg/dl (1) CAD (coronary artery disease) Coronary Disease-Associated Artery/Lesion type: [place] artery [place] vs. transplanted heart: [place] heart Associated angina: without angina Qualified Code(s): I25.10 - Atherosclerotic heart disease of [place] coronary artery without angina pectoris
--- NOTE | 2021-01-13 10:28 | Pharmacy Report ---
Pharmacy Glycemic Short Note 2 - Date of Service January 13, 2021 - Glycemic Short BSG Results (Last 24 hours): 01/12/21 01/12/21 01/12/21 12:03 17:15 17:53 Glucose POC Glucose 144 H 113 H 90 01/12/21 01/13/21 01/13/21 20:10 07:36 08:05 Glucose 118 H POC Glucose 147 H 122 H OUTPATIENT ANTIDIABETIC REGIMEN: * Regular insulins 20 units BID with meals * Metformin 1500mg PO QPM * A1c 6.7% 01/11/21 ASSESSMENT: 01/13/21 * Patient's BSGs yesterday were 494-429-71-147 mg/dL and fasting this morning was 122 mg/dL. * Patient received 21 units of insulin yesterday with 10 units of basal. Diet r esumed at dinnertime. * Gave patient 7 units of NPH this morning as with diet resumed expect increased insulin needs. Continue scale with dinnertime. Remove 15 unit dose for now as believe that to be too aggressive in evening. * Continue Novolog for now. 01/12/21: * BSG control fluctuated over the past 24 hours. * Patient was hypoglycemic yesterday morning and then became hyperglycemic after resuming a diet. * He received 35 units of insulin: 10 units of NPH, 25 units of Novolog * Fasting BSG of 141 mg/dL this morning. A partial dose of NPH was ordered for NPO status. * Patient is s/p I&D of heel ulcer. Anticipate resumption of diet this evening. 01/11/21: * 65 year old male admitted with osteomyelitis of his left heel, on IV antibiotics. * Patient NPO since admission, was given 15 units of NPH last night, and blood sugars have been 69-108mg/dl * Patient starting diet now, will utilize basal bolus insulin while inpatient PLAN FOR INPATIENT GLYCEMIC CONTROL: * Hold outpatient oral diabetes medications * Basal insulin * Change to NPH SQ BID per scale: * 5 units for BSG < 140 * 10 units for BSG 140 mg/dl or greater * Bolus insulin - no change * NovoLog per scale ACHS or Q6hrs while NPO * Goal Range: Low 110 mg/dL - High 140 mg/dL * Correction Factor: 12 mg/dL/unit * Nutritional / Prandial insulin per carb ratio of 1 unit per 4 grams CHO consumed PLAN FOR DISCHARGE: * to be determined
[2021-01-13] MEDS: INSULIN HUMAN NPH SQ SCH (17:37)
[2021-01-14] MEDS: CEFEPIME 2,000 MG in SYRINGE 0 ML IV SCH ×3 (06:16→22:28)
[2021-01-14] MEDS: GABAPENTIN 300 MG CAP PO SCH ×3 (06:20→17:36)
--- NOTE | 2021-01-14 08:41 | Hospitalist Progress Note ---
Date of Service January 14, 2021 Assessment & Plan (1) Osteomyelitis: (2) Diabetic ulcer of right heel: 65-year-old male who has significant past medical history of CAD status post CABG in 2003, IDDM 2, HTN, HLD chronic right calcaneal osteomyelitis, chronic right diabetic foot ulcer who presents ED secondary to worsening right heel ulcer for several weeks. MRI on 12/07 revealed patchy calcaneal bone marrow edema and enhancement suspicious for osteomyelitis. Cortical irregularity involving the posterior lateral aspect of calcaneus may represent postsurgical changes from prior debridement CT foot reported acute on chronic osteomyelitis He had worsening erythema, enlargement and clear drainage coming from wound. He did not meet SIRS or sepsis criteria on admission Status post debridement of ulcer and osteomyelitis on 01/12/2021 ID recommendations appreciated. Previous wound culture grow staph spp. Wound culture from surgery growing staph aureus. Follow-up final speciation and sensitivities Blood cultures negative so far . Continue cefepime for now per ID recommendations. Follow-up final culture results to determine final antibiotics and ID for duration of treatment Awaiting PT/OT evaluation (3) T2DM (type 2 diabetes mellitus): Last A1c 6.3 on 08/10/2020 A1c 6.7 Hold home Metformin Pharmacy on board for insulin management and glycemic control (4) CAD (coronary artery disease): History of CABG in 2003 EKG reviewed and unchanged from 05/19/2020 He did have echocardiogram in 07/23/2019 which revealed EF 55 to 60% Continue ASA, atorvastatin, lisinopril and metoprolol No chest pain or shortness of breath (5) Anemia: Normocytic anemia Hemoglobin is 12.5 today Likely secondary to chronic disease in setting of chronic osteomyelitis (6) SARS-CoV-2 positive: Patient had mild COVID-19 infection 05/2020 with fever and URI symptoms x1 day [facility] He has not yet received COVID-19 vaccination SARS-CoV-2 positive today, he is asymptomatic, chest x-ray without acute abnormality Currently on Covid isolation due to greater than 90 days post initial infection Currently asymptomatic (7) DVT prophylaxis: Lovenox subcu PCP: Elizabeth FULL CODE Admission and Anticipated Discharge Date Admission Date: January 10, 2021 Subjective 65-year-old male who has significant past medical history of CAD status post CABG in 2003, IDDM 2, HTN, HLD chronic right calcaneal osteomyelitis, chronic right diabetic foot ulcer who presents ED secondary to worsening right heel ulcer for several weeks. Being managed for acute on chronic osteomyelitis S/p irrigation and debridement of right heel ulcer on 01/12/2021 Patient seen and examined this morning. Reports only chronic lower extremity paresthesia and numbness Review of Systems Review of Systems: All systems reviewed & are unremarkable except as noted in Subjective Physical Exam Constitutional: + well hydrated; no acute distress Eyes: PERRL, conjunctivae normal, anicteric sclerae ENMT: external ear and nose normal, oropharynx normal Respiratory: normal respiratory effort, lungs clear to auscultation Cardiovascular: Rate/Rhythm: regular rate and regular rhythm S1-S2 Gastrointestinal (Abdomen): normal bowel sounds, soft, nontender, no hepatosplenomegaly Musculoskeletal: No pedal edema Right leg bandaged Neurologic: PERRL, EOMI, accommodation nl, no face palsy, no dysarthria Psychiatric: A+Ox3, euthymic affect Genitourinary: no CVA tenderness Results & Data Results & Data ([facility]) Vital Signs (Past 12 Hours) Vital Signs Temp Pulse Pulse Resp BP Pulse Ox 01/14/21 07:00 75 01/14/21 04:00 36.7 C 73 18 107/64 98 01/14/21 00:27 80 01/13/21 23:00 37.0 C 77 18 118/71 97 Laboratory Results Abnormal lab results 01/13/21 01/13/21 01/13/21 Range/Units 12:08 16:32 21:02 POC Glucose 149 H 193 H 131 H (70-99) mg/dl 01/14/21 Range/Units 08:35 POC Glucose 120 H (70-99) mg/dl (1) CAD (coronary artery disease) Coronary Disease-Associated Artery/Lesion type: [place] artery [place] vs. transplanted heart: [place] heart Associated angina: without angina Qualified Code(s): I25.10 - Atherosclerotic heart disease of [place] coronary artery without angina pectoris
[2021-01-14] MEDS: INSULIN HUMAN NPH SQ SCH ×3 (09:00→17:42)
[2021-01-14] MEDS: INSULIN ASPART 100 UNITS/ML 3 ML PEN SC SCH ×4 (09:00→21:02)
[2021-01-14] MEDS: ASPIRIN 81 MG ECTAB PO SCH (09:15)
[2021-01-14] MEDS: ENOXAPARIN INJ 40 MG/0.4 ML SYR SQ SCH (09:16)
[2021-01-14] MEDS: METOPROLOL SUCC 25MG EXT REL TAB PO SCH (09:16)
[2021-01-14] MEDS: ATORVASTATIN 40 MG TAB PO SCH (09:16)
[2021-01-14] MEDS: lisinopril 5 MG TAB PO SCH (09:16)
--- NOTE | 2021-01-14 09:53 | Orthopedic Progress Note ---
Date of Service January 14, 2021 Assessment & Plan (1) Osteomyelitis: POD#2 Incision and Drainage Right Heel Ulcer Implantation of Stimulan Beads -Dressing changed today by myself and new dressing applied. Plan on daily dressing changes. Continue IV antibiotics. OR cultures growing staph aureus resistant to clindamycin and erythromycin, wound cultures from 01/10 growing staph as well as corynebacterium species. Final antibiotic choice and duration per ID. NWB right LE. Will follow. Admission and Anticipated Discharge Date Admission Date: January 10, 2021 Supervising Physician Co-Signing Physician Notes Agree with above assessment and plan. Continue IV antibiotics, monitor cultures and sensitivities, wound care. Subjective POD#2. Doing well this morning. No complaints. Denies chest pain, sob, dizziness, fever, chills, n/v/d. Review of Systems Review of Systems: All systems reviewed & are unremarkable except as noted in Subjective Physical Exam Physical Exam: Dressing to right foot is clean and dry, falling off. This was removed. Acticoat dressing stapled to ulcer. No drainage. No surrounding erythema. No calf tenderness. Sensation distally decreased at baseline per patient. Constitutional: well developed and well nourished; no acute distress Results & Data ([facility]) Vital Signs (Past 12 Hours) Vital Signs Temp Pulse Pulse Resp BP Pulse Ox 01/14/21 08:41 36.8 C 98 H 18 132/78 98 01/14/21 07:00 75 01/14/21 04:00 36.7 C 73 18 107/64 98 01/14/21 00:27 80 01/13/21 23:00 37.0 C 77 18 118/71 97 (1) Osteomyelitis Osteomyelitis location: unspecified site Osteomyelitis type: unspecified type Qualified Code(s): M86.9 - Osteomyelitis, unspecified
--- NOTE | 2021-01-14 11:20 | Pharmacy Report ---
Pharmacy Glycemic Short Note 2 - Date of Service January 14, 2021 - Glycemic Short BSG Results (Last 24 hours): 01/13/21 01/13/21 01/13/21 12:08 16:32 21:02 POC Glucose 149 H 193 H 131 H 01/14/21 08:35 POC Glucose 120 H OUTPATIENT ANTIDIABETIC REGIMEN: * Regular insulins 20 units BID with meals * Metformin 1500mg PO QPM * A1c 6.7% 01/11/21 ASSESSMENT: 01/14/21 * Patient's BSGs yesterday were [phone] mg/dL and fasting this morning was 120 mg/dL. * Patient received 58 units of insulin yesterday with 17 units of basal. * Increase NPh in morning to 15 units and schedule 10 units for evening as this provides excellent fasting BSGs. * Continue Novolog for now. 01/13/21 * Patient's BSGs yesterday were [phone] mg/dL and fasting this morning was 122 mg/dL. * Patient received 21 units of insulin yesterday with 10 units of basal. Diet resumed at dinnertime. * Gave patient 7 units of NPH this morning as with diet resumed expect increased insulin needs. Continue scale with dinnertime. Remove 15 unit dose for now as believe that to be too aggressive in evening. * Continue Novolog for now. 01/12/21: * BSG control fluctuated over the past 24 hours. * Patient was hypoglycemic yesterday morning and then became hyperglycemic after resuming a diet. * He received 35 units of insulin: 10 units of NPH, 25 units of Novolog * Fasting BSG of 141 mg/dL this morning. A partial dose of NPH was ordered for NPO status. * Patient is s/p I&D of heel ulcer. Anticipate resumption of diet this evening. 01/11/21: * 65 year old male admitted with osteomyelitis of his left heel, on IV antibiotics. * Patient NPO since admission, was given 15 units of NPH last night, and blood sugars have been 69-108mg/dl * Patient starting diet now, will utilize basal bolus insulin while inpatient PLAN FOR INPATIENT GLYCEMIC CONTROL: * Hold outpatient oral diabetes medications * Basal insulin * Change to NPH 15 units in the morning and 10 units at bedtime * Bolus insulin - no change * NovoLog per scale ACHS or Q6hrs while NPO * Goal Range: Low 110 mg/dL - High 140 mg/dL * Correction Factor: 12 mg/dL/unit * Nutritional / Prandial insulin per carb ratio of 1 unit per 4 grams CHO consumed PLAN FOR DISCHARGE: * Patient's HbA1C is well controlled. Continue home regimen as long as patient does not have any hypoglycemia at home.
[2021-01-15] MEDS: CEFEPIME 2,000 MG in SYRINGE 0 ML IV SCH ×3 (05:06→21:05)
[2021-01-15] MEDS: GABAPENTIN 300 MG CAP PO SCH ×3 (05:06→17:44)
[2021-01-15 07:39] LABS: Hematocrit (blood only) 33.7 % (42-52); Hemoglobin 11.9 g/dL (14.0-18.0); Mean Corpuscular Hemoglobin 29.7 pg (25-34); Mean Corpuscular Hgb Conc 35.3 g/dL (32-36); Mean Platelet Volume 9.3 fL (7.4-10.4); Platelet Count 134 K/uL (130-400); RDW Standard Deviation 39.8 fL (36.4-46.3); Red Blood Count 4.01 M/uL (4.7-6.1)
[2021-01-15 08:12] LABS: BUN Creatinine Ratio 28.7 (10-20); Calcium 9.5 mg/dl (8.5-10.1); Creatinine Clr Calc Pharmacy 72.3 ml/min; Est GFR (African American) 81.8 ml/min; Est GFR (Non-African American) 70.6 ml/min; Potassium 4.5 mmol/L (3.5-5.1)
[2021-01-15] MEDS: lisinopril 5 MG TAB PO SCH (08:27)
[2021-01-15] MEDS: METOPROLOL SUCC 25MG EXT REL TAB PO SCH (08:27)
[2021-01-15] MEDS: ASPIRIN 81 MG ECTAB PO SCH (08:28)
[2021-01-15] MEDS: ATORVASTATIN 40 MG TAB PO SCH (08:28)
[2021-01-15] MEDS: ENOXAPARIN INJ 40 MG/0.4 ML SYR SQ SCH (08:29)
[2021-01-15] MEDS: INSULIN ASPART 100 UNITS/ML 3 ML PEN SC SCH ×4 (08:39→21:34)
[2021-01-15] MEDS: INSULIN HUMAN NPH SQ SCH ×2 (08:39→17:46)
--- NOTE | 2021-01-15 11:06 | Pharmacy Report ---
Pharmacy Glycemic Short Note 2 - Date of Service January 15, 2021 - Glycemic Short BSG Results (Last 24 hours): 01/14/21 01/14/21 01/14/21 12:18 17:22 20:45 Glucose POC Glucose 156 H 177 H 67 L* 01/14/21 01/14/21 01/15/21 20:49 21:06 06:58 Glucose 98 POC Glucose 69 L* 77 01/15/21 08:23 Glucose POC Glucose 116 H OUTPATIENT ANTIDIABETIC REGIMEN: * Regular insulins 20 units BID with meals * Metformin 1500mg PO QPM * A1c 6.7% 01/11/21 ASSESSMENT: 01/15/21 * Patient's BSGs yesterday were [phone] mg/dL and fasting this morning was 116 mg/dL. * Patient received 62 units of insulin yesterday with 25 units of basal. * Continue NPh in morning to 15 units and decrease dinnertime NPH due to hypoglycemia at bedtime.. * Loosening Novolog for hypoglycemia as well 01/14/21 * Patient's BSGs yesterday were [phone] mg/dL and fasting this morning was 120 mg/dL. * Patient received 58 units of insulin yesterday with 17 units of basal. * Increase NPh in morning to 15 units and schedule 10 units for evening as this provides excellent fasting BSGs. * Continue Novolog for now. 01/13/21 * Patient's BSGs yesterday were [phone] mg/dL and fasting this morning was 122 mg/dL. * Patient received 21 units of insulin yesterday with 10 units of basal. Diet resumed at dinnertime. * Gave patient 7 units of NPH this morning as with diet resumed expect increased insulin needs. Continue scale with dinnertime. Remove 15 unit dose for now as believe that to be too aggressive in evening. * Continue Novolog for now. 01/12/21: * BSG control fluctuated over the past 24 hours. * Patient was hypoglycemic yesterday morning and then became hyperglycemic after resuming a diet. * He received 35 units of insulin: 10 units of NPH, 25 units of Novolog * Fasting BSG of 141 mg/dL this morning. A partial dose of NPH was ordered for NPO status. * Patient is s/p I&D of heel ulcer. Anticipate resumption of diet this evening. 01/11/21: * 65 year old male admitted with osteomyelitis of his left heel, on IV antibiotics. * Patient NPO since admission, was given 15 units of NPH last night, and blood sugars have been 69-108mg/dl * Patient starting diet now, will utilize basal bolus insulin while inpatient PLAN FOR INPATIENT GLYCEMIC CONTROL: * Hold outpatient oral diabetes medications * Basal insulin * Change to NPH 15 units in the morning and 8 units at bedtime * Bolus insulin - loosen * NovoLog per scale ACHS or Q6hrs while NPO * Goal Range: Low 110 mg/dL - High 140 mg/dL * Correction Factor: 15 mg/dL/unit * Nutritional / Prandial insulin per carb ratio of 1 unit per 5 grams CHO consumed PLAN FOR DISCHARGE: * Patient's HbA1C is well controlled. Continue home regimen as long as patient does not have any hypoglycemia at home.
--- NOTE | 2021-01-15 14:58 | Orthopedic Progress Note ---
Date of Service January 15, 2021 Assessment & Plan (1) Osteomyelitis: POD3 Incision and Drainage Right Heel Ulcer Implantation of Stimulan Beads - Plan on daily dressing changes. Continue IV antibiotics. OR cultures growing staph aureus resistant to clindamycin and erythromycin, wound cultures from 01/10 growing staph as well as corynebacterium species. Final antibiotic choice and duration per ID. NWB right LE. Will follow. Ortho will sign off at this time. Please call with any questions. Admission and Anticipated Discharge Date Admission Date: January 10, 2021 Subjective POD 3 Pt sitting in bed awake, alert. No complaints. Pain controlled. Physical Exam Physical Exam: Dressings removed. Minimal drainage. No purulence. No erythema noted. Acticoat flex holding Stimulan beads nicely. Redressed with adaptic, 4x4's, kerlix wrap, and Panfilo wrap. Results & Data ([facility]) Vital Signs (Past 12 Hours) Vital Signs Temp Pulse Pulse Resp BP Pulse Ox 01/15/21 07:00 36.4 C L 63 68 18 147/83 H 99 01/15/21 04:00 36.4 C L 68 18 113/68 97 (1) Osteomyelitis Osteomyelitis location: unspecified site Osteomyelitis type: unspecified type Qualified Code(s): M86.9 - Osteomyelitis, unspecified
--- NOTE | 2021-01-15 17:57 | Hospitalist Progress Note ---
Date of Service January 15, 2021 Assessment & Plan (1) Osteomyelitis: (2) Diabetic ulcer of right heel: 65-year-old male who has significant past medical history of CAD status post CABG in 2003, IDDM 2, HTN, HLD chronic right calcaneal osteomyelitis, chronic right diabetic foot ulcer who presents ED secondary to worsening right heel ulcer for several weeks. MRI on 12/07 revealed patchy calcaneal bone marrow edema and enhancement suspicious for osteomyelitis. Cortical irregularity involving the posterior lateral aspect of calcaneus may represent postsurgical changes from prior debridement CT foot reported acute on chronic osteomyelitis He had worsening erythema, enlargement and clear drainage coming from wound. He did not meet SIRS or sepsis criteria on admission Status post debridement of ulcer and osteomyelitis on 01/12/2021 ID recommendations appreciated. Previous wound culture grow staph spp. Wound culture from surgery growing staph aureus. Follow-up final speciation and sensitivities Blood cultures negative so far . Continue cefepime for now per ID recommendations. will need 6 weeks of IV abx from day of I&D (3) T2DM (type 2 diabetes mellitus): Last A1c 6.3 on 08/10/2020 A1c 6.7 Hold home Metformin Pharmacy on board for insulin management and glycemic control (4) CAD (coronary artery disease): History of CABG in 2003 EKG reviewed and unchanged from 05/19/2020 He did have echocardiogram in 07/23/2019 which revealed EF 55 to 60% Continue ASA, atorvastatin, lisinopril and metoprolol No chest pain or shortness of breath (5) Anemia: Normocytic anemia Hemoglobin is 12.5 Likely secondary to chronic disease in setting of chronic osteomyelitis (6) SARS-CoV-2 positive: Patient had mild COVID-19 infection 05/2020 with fever and URI symptoms [facility] He has not yet received COVID-19 vaccination SARS-CoV-2 positive on admission , he is asymptomatic, chest x-ray without acute abnormality repeat Covid 19 test negative ordered to dc isolation (7) DVT prophylaxis: Lovenox subcu PCP: Elizabeth FULL CODE Admission and Anticipated Discharge Date Admission Date: January 10, 2021 Subjective patients states he feels fine no pain or discomfort on right leg no cough or sob , no fever or chills his test for covid 19 return back negative pt believes if his test is repeated it will be negative as well , since he has not been experiencing any symptom related to COVID 19 infection -similar to his agreeable for home Iv abx , he had PICC line in past and had home Iv abx - no complain of nausea or abdominal pain , no diarrhea or loose stool , tolerating IV abx Review of Systems Review of Systems: All systems reviewed & are unremarkable except as noted in Subjective Physical Exam Constitutional: WD/WN, vitals as above Eyes: + anicteric sclerae ENMT: external ear and nose normal, oropharynx normal Neck: trachea midline, no thyromegaly Respiratory: normal respiratory effort, lungs clear to auscultation Cardiovascular: Rate/Rhythm: regular rate and regular rhythm Gastrointestinal (Abdomen): Percussion/Palpation: abdomen soft; abdomen nontender Musculoskeletal: Extremities: + foot abnormality (non healing wound , bandaged ) Right Neurologic: PERRL, EOMI, accommodation nl, no face palsy, no dysarthria Psychiatric: A+Ox3, euthymic affect Results & Data Results & Data ([facility]) Vital Signs (Past 12 Hours) Vital Signs Temp Pulse Pulse Resp BP Pulse Ox 01/15/21 16:25 36.7 C 77 18 123/74 97 01/15/21 14:19 79 01/15/21 07:00 36.4 C L 63 68 18 147/83 H 99 (1) CAD (coronary artery disease) Associated angina: without angina Coronary Disease-Associated Artery/Lesion type: [place] artery [place] vs. transplanted heart: [place] heart Qualified Code(s): I25.10 - Atherosclerotic heart disease of [place] coronary artery without angina pectoris
[2021-01-16] MEDS: CEFEPIME 2,000 MG in SYRINGE 0 ML IV SCH (06:03)
[2021-01-16] MEDS: GABAPENTIN 300 MG CAP PO SCH ×3 (06:03→12:40)
[2021-01-16] MEDS: INSULIN ASPART 100 UNITS/ML 3 ML PEN SC SCH ×4 (08:36→21:43)
[2021-01-16] MEDS: INSULIN HUMAN NPH SQ SCH ×2 (08:38→17:21)
[2021-01-16] MEDS: ATORVASTATIN 40 MG TAB PO SCH (08:40)
[2021-01-16] MEDS: ASPIRIN 81 MG ECTAB PO SCH (08:40)
[2021-01-16] MEDS: lisinopril 5 MG TAB PO SCH (08:40)
[2021-01-16] MEDS: METOPROLOL SUCC 25MG EXT REL TAB PO SCH (08:40)
[2021-01-16] MEDS: ENOXAPARIN INJ 40 MG/0.4 ML SYR SQ SCH (08:44)
--- NOTE | 2021-01-16 13:37 | Hospitalist Progress Note ---
Date of Service January 16, 2021 Assessment & Plan (1) Osteomyelitis: (2) Diabetic ulcer of right heel: 65-year-old male who has significant past medical history of CAD status post CABG in 2004, IDDM 2, HTN, HLD chronic right calcaneal osteomyelitis, chronic right diabetic foot ulcer who presents ED secondary to worsening right heel ulcer for several weeks. MRI on 12/07 revealed patchy calcaneal bone marrow edema and enhancement suspicious for osteomyelitis. Cortical irregularity involving the posterior lateral aspect of calcaneus may represent postsurgical changes from prior debridement CT foot reported acute on chronic osteomyelitis He had worsening erythema, enlargement and clear drainage coming from wound. He did not meet SIRS or sepsis criteria on admission Status post debridement of ulcer and osteomyelitis on 01/12/2021 ID recommendations appreciated. Previous wound culture grow staph spp. Wound culture from surgery growing staph aureus. Follow-up final speciation and sensitivities Blood cultures negative so far . abx changed to Iv Ertepenam for once daily administration will need 6 weeks of IV abx from day of I&D PICC line ordered (3) T2DM (type 2 diabetes mellitus): Last A1c 6.3 on 08/10/2020 A1c 6.7 Hold home Metformin Pharmacy on board for insulin management and glycemic control (4) CAD (coronary artery disease): History of CABG in 2003 EKG reviewed and unchanged from 05/19/2020 He did have echocardiogram in 07/23/2019 which revealed EF 55 to 60% Continue ASA, atorvastatin, lisinopril and metoprolol No chest pain or shortness of breath (5) Anemia: Normocytic anemia Hemoglobin is 12.5 Likely secondary to chronic disease in setting of chronic osteomyelitis (6) SARS-CoV-2 positive: Patient had mild COVID-19 infection 05/2020 with fever and URI symptoms x1 day [facility] He has not yet received COVID-19 vaccination SARS-CoV-2 positive on admission , he is asymptomatic, chest x-ray without acute abnormality repeat Covid 19 test negative ordered to dc isolation (7) DVT prophylaxis: Lovenox subcu PCP: Elizabeth FULL CODE Admission and Anticipated Discharge Date Admission Date: January 10, 2021 Subjective patients states he feels fine no pain or discomfort on right leg no cough or sob , no fever or chills PICC line ordered agreeable for home Iv abx , he had PICC line in past and had home Iv abx - no complain of nausea or abdominal pain , no diarrhea or loose stool , tolerating IV abx Physical Exam Constitutional: WD/WN, vitals as above Eyes: + anicteric sclerae ENMT: external ear and nose normal, oropharynx normal Neck: trachea midline, no thyromegaly Respiratory: normal respiratory effort, lungs clear to auscultation Cardiovascular: Rate/Rhythm: regular rate and regular rhythm Gastrointestinal (Abdomen): Percussion/Palpation: abdomen soft; abdomen n ontender Musculoskeletal: Extremities: + foot abnormality (non healing wound , bandaged ) Neurologic: PERRL, EOMI, accommodation nl, no face palsy, no dysarthria Psychiatric: A+Ox3, euthymic affect Results & Data Results & Data ([facility]) Vital Signs (Past 12 Hours) Vital Signs Temp Pulse Resp BP Pulse Ox 01/16/21 08:03 36.7 C 76 18 121/74 98 (1) CAD (coronary artery disease) Associated angina: without angina Coronary Disease-Associated Artery/Lesion type: [place] artery [place] vs. transplanted heart: [place] heart Qualified Code(s): I25.10 - Atherosclerotic heart disease of [place] coronary artery without angina pectoris
[2021-01-16] MEDS: ADVANCED PROBIOTIC 1250 MG CAPSULE PO SCH (14:39)
[2021-01-16] MEDS: ERTAPENEM SODIUM 1,000 MG in SODIUM CHLORIDE 0.9% 50 ML IV SCH (14:39)
--- NOTE | 2021-01-16 14:57 | XRay Report ---
XR chest 1V portable HISTORY: PICC line placement. Vasonova machine not working COMPARISON: None. FINDINGS: No pneumothorax or no pleural effusions. There are low lung volumes. The heart remains stab le in size. There are poststernotomy changes. No new focal lung consolidations to suggest pneumonia. No evidence for pulmonary edema. The tip of the right PICC terminates at the expected location of the distal SVC/superior cavoatrial junction. IMPRESSION: The tip of the right PICC terminates at the expected location of the distal SVC/superior cavoatrial j unction. No pneumothorax. ACT 112: Negative or not required by law. Electronically signed by: Scar Calvert M.D. 01/16/2021 2:55 PM
[2021-01-17] MEDS: GABAPENTIN 300 MG CAP PO SCH ×2 (05:40→13:28)
[2021-01-17] MEDS ORDERED: INSULIN HUMAN NPH SQ SCH (08:00)
[2021-01-17] MEDS: INSULIN HUMAN NPH SQ SCH (09:01)
[2021-01-17] MEDS: ASPIRIN 81 MG ECTAB PO SCH (09:18)
[2021-01-17] MEDS: ENOXAPARIN INJ 40 MG/0.4 ML SYR SQ SCH (09:18)
[2021-01-17] MEDS: ADVANCED PROBIOTIC 1250 MG CAPSULE PO SCH (09:19)
[2021-01-17] MEDS: ATORVASTATIN 40 MG TAB PO SCH (09:20)
[2021-01-17] MEDS: METOPROLOL SUCC 25MG EXT REL TAB PO SCH (09:20)
[2021-01-17] MEDS: lisinopril 5 MG TAB PO SCH (09:21)
[2021-01-17] MEDS: INSULIN ASPART 100 UNITS/ML 3 ML PEN SC SCH ×2 (09:40→13:29)
--- NOTE | 2021-01-17 13:13 | Hospitalist Progress Note ---
Date of Service January 17, 2021 Assessment & Plan (1) Osteomyelitis: Plan: Patient is a 65-year-old male who has significant past medical history of CAD status post CABG in 2003, IDDM 2, HTN, HLD chronic right calcaneal osteomyelitis, chronic right diabetic foot ulcer who presents ED secondary to worsening right heel ulcer for several weeks. Acute osteomyelitis Diabetic ulcer of right heel: -MRI on 12/07 revealed patchy calcaneal bone marrow edema and enhancement suspicious for osteomyelitis. Cortical irregularity involving the posterior lateral aspect of calcaneus may represent postsurgical changes from prior debridement CT foot reported acute on chronic osteomyelitis Doesn't meet SIRS or sepsis criteria on admission S/P Debridement of ulcer and osteomyelitis on 01/12/2021 by [facility]reciate ID Input Wound culture growing staph aureus, Provotella, Corynebacterium Blood cultures negative Continue cefepime>> transitioned to Ertapenem Needs 6 weeks of IV antibiotics DM II Hb A1c 6.7 Hold home Metformin Pharmacy on board for insulin management and glycemic control CAD (coronary artery disease): H/O CABG in 2003 EKG reviewed and unchanged from 05/19/2020 ECHO 07/23/2019 which revealed EF 55 to 60% Continue ASA, atorvastatin, lisinopril and metoprolol Anemia: Normocytic anemia Hemoglobin is 12.5 Likely secondary to chronic disease in setting of chronic osteomyelitis SARS-CoV-2 positive: Patient had mild COVID-19 infection 05/2020 with fever and URI symptoms x[facility] day [facility] Not yet received COVID-19 vaccination SARS-CoV-2 positive on admission , he is asymptomatic, chest x-ray without acute abnormality Repeat Covid 19 test negative DVT Px: Lovenox SQ Code Status FULL CODE Admission and Anticipated Discharge Date Admission Date: January 10, 2021 Subjective Patient is seen and examined at bedside Offers no complaints today States feeling well today Denies any pain of right ankle Also denies chest pain, shortness of breath, dizziness, nausea, abdominal pain Review of Systems Review of Systems: All systems reviewed, negative other than HPI. Physical Exam Physical Exam: Physical Exam: Vitals signs as noted above General Appearance:Moderately built and nourished, no apparent distress Head: normocephalic, Atraumatic Eyes: normal inspection, EOMI Neck: supple, Trachea midline Respiratory/Chest: Normal breath sounds, CTA, No accessory muscle use, +Well healed CABG scar Cardiovascular: S1, S2, No murmur Abdomen/GI:Soft, Non tender, Bowel sounds present Extremities/Musculoskeletal:normal inspection, no edema, Right Ankle in dressing Neurologic/Psych:AAOX3, grossly no focal neurological deficits Skin: normal color, warm Results & Data Results & Data ([facility]) Vital Signs (Past 12 Hours) Vital Signs Temp Pulse Resp BP Pulse Ox 01/17/21 11:00 36.5 C 79 18 133/80 99
--- NOTE | 2021-01-17 13:17 | Discharge Summary ---
Date of Service January 17, 2021 Admission HPI Per Admitting Provider This is a 65-year-old male who has significant past medical history of CAD status post CABG in 2003, IDDM 2, HTN, HLD chronic right calcaneal osteomyelitis, chronic right diabetic foot ulcer who presents ED secondary to worsening right heel ulcer for several weeks. Patient initially admitted to [facility] in May 2020 with Aerococcus prevotii bacteremia and infected right heel wound status post bedside debridement, polymicrobial felicia including Prevotella Bivia, alpha strep, Bacteroides Pyogenes and Aerococcus isolated. At that time treated with IV Zosyn and ertapenem for 4 to 6 weeks. Infection recurred in Aug in which he underwent MRI that showed extensive infection extending into the calf and also calcaneal OM. Orthopedics attempted a bedside aspiration but per notes, collection was too thick." This time he was briefly treated with Vanco and Zosyn and transition to single therapy with Zosyn until mid October 2020 when she completed 6 weeks of therapy. At that time he underwent no surgical intervention. Since then he has been on oral amoxicillin and has been following with wound clinic daily. He was seen and evaluated by infectious disease at [facility] on 11/21/2020 in which at that time wound has been improving. He did have MRI which revealed calf abscess and calcaneus OM for which he did not undergo surgery. At this time infectious disease was concerned infection would rule out. At that point time is not placed on any further antibiotic therapy. He did undergo repeat MRI on 12/07 of ankle and foot which revealed patchy calcaneal bone marrow edema and enhancement suspicious for osteomyelitis, cortical irregularity involving the posterior lateral aspect of calcaneus, may represent postsurgical changes from prior debridement or osteolysis from progression of osteomyelitis could appear similar. He was initially followed by orthopedics at [facility] but wishes to follow with group locally. He was seen and evaluated in clinic today by PCP Dr. Johnson who was concerned secondary to worsening appearance of wound from 2 weeks ago with associated clear drainage. He was referred to ED for further evaluation. Overall he feels well. He denies fever, chills, sweats, lightheadedness, dizziness, URI symptoms, cough, chest pain, shortness breath, hemoptysis, nausea, vomiting, abdominal pain, change in bowel or urinary habits. His appetite has been well. Denies any unexplained weight loss. He admits to being noncompliant with [employer] shoe. at bedside states he only wears it to the doctor's office. He states over the past weekend he was helping a friend unload brick out of a truck and was wearing a regular shoe. He denies any pain to the right foot secondary to neuropathy and unable to feel. During ED evaluation he remained hemodynamically stable. CBC revealed mild anemia 12.6 and 36.6 his CMP was relatively unremarkable. He did test positive for SARS-CoV-2 but is currently asymptomatic. He admits to infection in May 2020 during stay at [facility]. He had very mild symptoms with fever and mild URI symptoms x1 day. He is not vaccinated nor is his . In ED he was started on IV Rocephin. Admission Exam Per Admitting Provider Physical Exam Physical Exam: Constitutional: WD/WN, M, vitals as above, NAD, sitting up in bed, pleasant, conversing easily Head: Normocephalic, Atraumatic Eyes: PERRL, conjunctivae normal, anicteric sclerae ENMT: external ear and nose normal, oropharynx normal Neck: trachea midline, no thyromegaly normal visual inspection Respiratory: normal respiratory effort, lungs clear to auscultation, no wheeze, rales, rhonchi. Normal insp/exp effort, no accessory muscle use Cardiovascular: RRR, no murmur, no edema Vessels: no JVD or carotid bruit Chest: normal inspection of chest Abdomen: normal bowel sounds, soft, nontender, no hepatosplenomegaly Musculoskeletal: no cyanosis or clubbing, extremities motor strength 5/5 Skin: R lateral heel with wound, appears stage 3, pictures noted in chart. no rashes, warm and dry normal turgor Neurologic: PERRL, EOMI, accommodation nl, no face palsy, no dysarthria CN's II-XI intact bilaterally and moves all extremities Psychiatric: A+Ox3, euthymic affect Lymphatic: no cervical or axillary lymphadenopathy : deferred Principal Diagnosis Diabetic ulcer of right heel Right heel osteomyelitis Type 2 diabetes Discharge Data Allergies Allergy/AdvReac Type Severity Reaction Status Date / Time No Known Allergies Allergy Verified 01/10/21 14:47 Consultations 01/10/21 14:34 ED Decision to Admit Stat 01/10/21 15:25 Consult Infectious Diseases Routine Consult Orthopedic Surgery Routine Procedures Performed Operation Date: 01/12/21 08:20 Actual Procedures p Incision and Drainage Right Heel Ulcer Implantation of Stimulan Beads(Right) - Marcos Duncan DO Ordered Studies 01/10/21 16:32 CT foot RT wo con Stat Hospital Course (1) Osteomyelitis: Patient is a 65-year-old male who has significant past medical history of CAD status post CABG in 2003, IDDM 2, HTN, HLD chronic right calcaneal osteomyelitis, chronic right diabetic foot ulcer who presents ED secondary to worsening right heel ulcer for several weeks. Acute osteomyelitis Diabetic ulcer of right heel: -MRI on 12/07 revealed patchy calcaneal bone marrow edema and enhancement suspicious for osteomyelitis. Cortical irregularity involving the posterior lateral aspect of calcaneus may represent postsurgical changes from prior debridement CT foot reported acute on chronic osteomyelitis Doesn't meet SIRS or sepsis criteria on admission S/P Debridement of ulcer and osteomyelitis on 01/12/2021 by Appreciate ID Input Wound culture growing staph aureus, Provotella, Corynebacterium Blood cultures negative Continue cefepime>> transitioned to Ertapenem Needs 6 weeks of IV antibiotics DM II Hb A1c 6.7 Hold home Metformin Pharmacy on board for insulin management and glycemic control CAD (coronary artery disease): H/O CABG in 2003 EKG reviewed and unchanged from 05/19/2020 ECHO 07/23/2019 which revealed EF 55 to 60% Continue ASA, atorvastatin, lisinopril and metoprolol Anemia: Normocytic anemia Hemoglobin is 12.5 Likely secondary to chronic disease in setting of chronic osteomyelitis SARS-CoV-2 positive: Patient had mild COVID-19 infection 05/2020 with fever and URI symptoms x1 day while [facility] Not yet received COVID-19 vaccination SARS-CoV-2 positive on admission , he is asymptomatic, chest x-ray without acute abnormality Repeat Covid 19 test negative DVT Px: Lovenox SQ Code Status FULL CODE Total Time Total Time Spent Total Time Spent (In Minutes): 44 minutes Discharge Plan Discharge Items Patient Disposition: Home - Home Health Services Reason For Visit: RT HEEL OSTEOMYELITIS Discharge Diagnosis: Diabetic ulcer of right heel Right heel osteomyelitis Type 2 diabetes Activity: As commented below Activity Comment: Bearing on right lower extremity Exercise/Sports: Wait until after follow-up appointment Weightbearing: Right non-weightbearing Non-emergency contact: Primary Care Provider and Surgeon Call non-emergency contact if: you have any medication questions Follow-up/Referrals: aMrcos Duncan DO [Surgeon] - (follow up in 14 days from the day of surgery for wound check.) Karlos Johnson MD [Primary Care Provider] - (Date & Time 01/19/2021 11:20 AM Provider Axel Johnson MD Department Family Medicine [facility] ) Diet: Carb Consistent or DM2 Addtl Attending Provider Instructions: Follow-up with your primary care physician on 01/19/2021 11:20 AM Follow-up with your surgeon Dr. Marcos Duncan in 2 weeks Follow-up with wound clinic as recommended Please take all medications as instructed on discharge list below. It is recommended that you follow-up with your primary care physician within 1-2 weeks of hospital discharge to ensure you are still doing well. Please call if you have any questions or problems. You can reach a [facility] hospitalist on duty at [facility] 24 hours a day by calling [phone] Antibiotic : IV Ertapenem 1 gm daily for 6 weeks Lab:Weekly Basic metabolic panel while on IV antibiotic , your family physician will follow the lab result PLEASE TAKE PROBIOTICS ( OVER THE COUNTER ) WHILE TAKING ANTIBIOTICS TO PREVENT DIARRHEA /LOOSE STOOL Seek immediate medical attention if your symptoms reoccur or worsen Please call if you have any questions or problems. You can reach a [facility] hospitalist on duty at [facility] 24 hours a day by calling [phone] Addtl Safe Deposit Attendant Provider Instructions: ACTIVITY RECOMMENDATIONS: Limitations: No weight bearing to affected limb at all times. SPECIAL CARE INSTRUCTIONS: * Some drainage onto the dressing is normal and is no cause for alarm. * Some swelling is natural especially after walking. * When resting, keep your foot elevated above the level of your heart. * Call [facility] if you notice: -Increased drainage -Fever over 101 degrees F -Severe constant pain BANDAGE: * DAILY DRESSING CHANGES. * Keep bandage/cast dry at all times. FOLLOW UP VISIT WITH DR. DUNCAN If appointment is not already scheduled: Please call [facility] after you get home today to schedule a follow-up appointment for [address] Duncan at . Pending Studies at Discharge: No Stand-Alone Forms: My [facility], Smoking Cessation Medications and DC Order Prescriptions: New ertapenem 1 gram recon soln 1 g IV DAILY 42 Days Qty: 10 RF: 4 Continued metformin 750 mg tablet extended release 24 hr 1,500 mg PO QPM RF: 0 atorvastatin 40 mg Tablet 40 mg PO QAM Qty: 30 RF: 5 aspirin 81 mg Tablet,Delayed Release (Dr/Ec) 81 mg PO DAILY Qty: 30 RF: 5 lisinopril [Zestril] 5 mg Tablet 5 mg PO QAM Qty: 30 RF: 5 gabapentin 300 mg capsule 300 mg PO BID RF: 0 Novolin R Regular U-100 Insuln 100 unit/mL solution 20 unit subcut BID RF: 0 gabapentin 300 mg Capsule 600 mg PO DAILY@1800 RF: 0 metoprolol succinate 25 mg Tablet Extended Release 24 Hr 12.5 mg PO DAILY RF: 0 Discharge Orders: Discharge Order (Routine); Ordered 01/17/21 Ordered By: Wilver Lacey Admission Data Admit Date/Time: 01/10/21 15:25 Attending Provider: Wilver Lacey Admit Provider: Wilver Lacey Primary Care Provider: Karlos Johnson Other Providers: Jessica Vega I. ; Wilver Lacey ; Raul Mahmood ; Gena Cleaning ; Ash Connelly I. ; Mati Lott II ; Patricia Watson ; Praveen Moreno ; Marcos Duncan ; [facility] Other Interventions: Discharge Summary Assessment (RN) Last Done: 01/17/21 13:54
[2021-01-17] MEDS: ERTAPENEM SODIUM 1,000 MG in SODIUM CHLORIDE 0.9% 50 ML IV SCH (13:34)
[2021-01-17] MEDS ORDERED: INSULIN ASPART 100 UNITS/ML 3 ML PEN SC SCH (16:30)
[2021-01-18] MEDS ORDERED: INSULIN ASPART 100 UNITS/ML 3 ML PEN SC SCH (07:30)
== END 2021-01-17 14:30 | disposition home health service (06) | DRG 501 ==
LOC: ED 11:25 → SUATTDRO 15:25 → 2N 15:25

== ENCOUNTER 2021-08-07 12:52 | Inpatient (IN) ==
--- NOTE | 2021-08-07 13:15 | Emergency Department Note ---
Impression & Plan Diabetic ulcer of right heel, Anemia, Acute hyponatremia ED Provider Note NAME: SLADE MENDOZA AGE: 66 SEX: M : 1955 ARRIVES VIA: Walk-In INFORMANT: Patient ED PROVIDER(S): Danny mAado DO CHIEF COMPLAINT: Right foot infection HPI: Patient is a 66-year-old male who presents to the ER with a past medical history of CAD, osteo, diabetes with peripheral neuropathy, and anemia who presents the ER for right heel infection/ulcer. This has been followed up with [facility]. Patient stopped following with them back in May. Wound has been deteriorating. He admits to foul smell. Denies any pain as he has no sensation due to neuropathy. No fevers. No headache or change in vision. No chest pain or shortness of breath. No nausea vomiting or diarrhea. No dysuria, urgency, or frequency. No other exacerbating or remitting factors. ROS: See above HPI for pertinent positives & negatives. A total of 10 systems reviewed and were otherwise negative. PAST MEDICAL HISTORY:See Below PAST SURGICAL HISTORY:See Below FAMILY HISTORY:See Below SOCIAL HISTORY:See Below HOME MEDICATIONS:See Below ALLERGIES:See Below VITALS:See Below PHYSICAL EXAMINATION: GENERAL: Sitting up in bed, alert, well appearing, well nourished, no distress, non-toxic EYE EXAM: normal conjunctiva. PERRL and EOM's grossly intact. OROPHARYNX: no exudate, no erythema, lips, buccal mucosa, and tongue normal and mucous membranes are moist NECK: supple, no nuchal rigidity, no adenopathy, non-tender LUNGS: Clear to auscultation. Normal chest wall mechanics HEART: no murmurs, S1 normal and S2 normal ABDOMEN: abdomen soft, non-tender, normo-active bowel sounds, no masses, no rebound or guarding. UPPER EXTREMITIES: upper extremities are grossly normal. LOWER EXTREMITIES: No pitting edema. Right heel with large wound tracking through skin, fat, muscle and down to bone foul-smelling with no significant drainage,appears to be necrotic tissue within the wound NEURO EXAM: Normal sensorium, cranial nerves II-XII grossly intact, normal speech, no gross weakness of arms, no gross weakness of legs. MEDICAL DECISION MAKING: Patient is a 66-year-old male who presents the ER with above-stated complaint. IV was established blood work was obtained. Labs show no significant leukocytosis. Mild anemia 12.2. Sed rate was significantly elevated at 86. BMP with mild hyponatremia 131. Covid was negative. X-rays show a large skin wound. On exam he has a large right heel ulcer with what appears to be some necrotic tissue. Patient was given IV vancomycin as well as Zosyn. He was updated bedside. Discussed with the hospitalist. Ortho PDX did evaluate him at bedside the tentative plan is to take to the OR. Triage Nursing notes reviewed. Limited review of prior medical records performed Vital Signs: reviewed and remarkable for HTN Differential diagnosis: Cellulitis, abscess, MRSA infection, DVT, necrotizing fasciitis, dermatitis, drug eruption, allergic reaction, as well as other pathologies. ER treatment provided: See below Diagnostics interpreted by me: ECG: none Cardiac Monitoring: An order was placed for continuous cardiac monitoring. The monitor shows a rate of 62 with sinus rhythm. Laboratory studies: As stated above and show below. Imaging studies: X-rays of the heel show no obvious osteo- Consultation(s): Seen evaluated by orthopedics Discussed with Kate from the hospital service to admit the patient for further work-up Procedures: none Critical Care: None Past Med/Surg History Medical History CAD (coronary artery disease) CABG x3 (2003) Chronic anemia Diabetes mellitus, type 2 IDDM Diabetic ulcer of right heel Hyperlipidemia Hypertension Myocardial Infarction 2004 Neuropathy Osteomyelitis Surgical History History of coronary artery bypass graft CABG x3 (2003) History of foot surgery Surgical debridement to R heel History of tooth extraction History of vasectomy S/P PICC central line placement Right arm (getting IV abx) Family History Father Multiple myeloma Other Diabetes No family history of adverse response to anesthesia Social History Smoking Status: Never smoker Second Hand Exposure: Yes ( SMOKES); Hx Alcohol Use: Yes Alcohol type: beer Alcohol Intake Frequency: 2-3 x/Week Hx Substance Use: No Preferred Language: Guatemalan Communication Ability: Effective Medicaid Plan Compliance Director Required: No Beliefs That Will Affect Care: None marital status: Current Living Situation: Spouse current occupational status: retired How many Children do You have: 2 How many Children do You have Comment: two daughters with one that lives close to pt. able to assist with care as needed. Feels Safe at Home: Yes during the past year weight has: remained stable Assistive Devices: Denture - Upper and Glasses Allergies Allergies Allergy/AdvReac Type Severity Reaction Status Date / Time No Known Allergies Allergy Verified 08/07/21 14:57 Home Meds Home Medications Medication Instructions Recorded Confirmed metoprolol succinate 25 mg 25 mg PO QAM 01/10/21 08/07/21 tablet,extended release 24 hr insulin NPH isoph U-100 human 100 20 unit SUBCUT BID 08/07/21 08/07/21 unit/mL subcutaneous suspension (Novolin N NPH U-100 Insulin isophane) Previous Rx's Medication Instructions Recorded aspirin 81 mg tablet,delayed 81 mg PO DAILY #30 tab 02/07/20 release atorvastatin 40 mg tablet 40 mg PO QAM #30 tab 02/07/20 lisinopril 5 mg tablet (Zestril) 5 mg PO QAM #30 tab 02/07/20 Results & Data (ED) Vital Signs Vital Signs - 24 hr 08/07/21 12:56 08/07/21 13:50 08/07/21 15:00 Temperature 36.9 C Temperature Source Temporal Artery Scan Pulse Rate 63 Pulse Rate [Apical] 95 H Respiratory Rate 18 22 Blood Pressure 173/86 H Blood Pressure [Right Arm] 155/85 H Blood Pressure Mean 115 Blood Pressure Mean [Right Arm] 108 Blood Pressure Position Sitting Blood Pressure Position [Right Arm] Pulse Oximetry 97 100 Oxygen Delivery Method Room Air Room Air Sepsis Recent Fever Within 48 Hours No Sepsis New/Unexplained Change in Mental Status No Sepsis Action Taken by Nursing No Action Required 08/07/21 15:32 Temperature Temperature Source Pulse Rate Pulse Rate [Apical] 97 H Respiratory Rate 20 Blood Pressure Blood Pressure [Right Arm] 147/84 H Blood Pressure Mean Blood Pressure Mean [Right Arm] 105 Blood Pressure Position Blood Pressure Position [Right Arm] Lying Pulse Oximetry 98 Oxygen Delivery Method Room Air Sepsis Recent Fever Within 48 Hours Sepsis New/Unexplained Change in Mental Status Sepsis Action Taken by Nursing Laboratory Data Result diagrams: 08/07/21 14:01 08/07/21 14:01 Lab Results 08/07/21 08/07/21 08/07/21 Range/Units 13:30 14:01 14:01 WBC 5.64 (4.8-10.8) K/uL RBC 4.31 L (4.7-6.1) M/uL Hgb 12.2 L (14.0-18.0) g/dL Hct 35.8 L (42-52) % MCV 83.1 (80-100) fL MCH 28.3 (25-34) pg MCHC 34.1 (32-36) g/dL RDW Std Deviation 37.6 (36.4-46.3) fL RDW Coeff of Mau 12.2 (11.5-14.5) % Plt Count 232 (130-400) K/uL MPV 9.0 (7.4-10.4) fL Immature Gran % (Auto) 0.0 % Neut % (Auto) 74.6 % Lymph % (Auto) 10.5 % [place] % (Auto) 11.7 % Eos % (Auto) 2.8 % Baso % (Auto) 0.4 % Neut # (Auto) 4.21 (1.4-6.5) K/uL Lymph # (Auto) 0.59 L (1.2-3.4) K/uL [place] # (Auto) 0.66 H (0.11-0.59) K/uL Eos # (Auto) 0.16 (0-0.5) K/uL Baso # (Auto) 0.02 (0-0.2) K/uL Immature Gran # (Auto) 0.00 (0.00-0.02) K/uL ESR 86 H (0-20) mm/hr Sodium (136-145) mmol/L Potassium (3.5-5.1) mmol/L Chloride (98-107) mmol/L Carbon Dioxide (21-32) mmol/L Anion Gap (3-11) BUN (6-23) mg/dl Creatinine (0.6-1.4) mg/dl Est Cr Clr Drug Dosing ml/min Est GFR ( Amer) ml/min Est GFR (Non-Af Amer) ml/min BUN/Creatinine Ratio (10-20) Glucose (70-99(Fasting)) mg/dl Calcium (8.5-10.1) mg/dl SARS-CoV-2, RNA, NAAT NEGATIVE (NEGATIVE) 08/07/21 Range/Units 14:01 WBC (4.8-10.8) K/uL RBC (4.7-6.1) M/uL Hgb (14.0-18.0) g/dL Hct (42-52) % MCV (80-100) fL MCH (25-34) pg MCHC (32-36) g/dL RDW Std Deviation (36.4-46.3) fL RDW Coeff of Mau (11.5-14.5) % Plt Count (130-400) K/uL MPV (7.4-10.4) fL Immature Gran % (Auto) % Neut % (Auto) % Lymph % (Auto) % [place] % (Auto) % Eos % (Auto) % Baso % (Auto) % Neut # (Auto) (1.4-6.5) K/uL Lymph # (Auto) (1.2-3.4) K/uL [place] # (Auto) (0.11-0.59) K/uL Eos # (Auto) (0-0.5) K/uL Baso # (Auto) (0-0.2) K/uL Immature Gran # (Auto) (0.00-0.02) K/uL ESR (0-20) mm/hr Sodium 131 L (136-145) mmol/L Potassium 4.7 (3.5-5.1) mmol/L Chloride 98 (98-107) mmol/L Carbon Dioxide 27 (21-32) mmol/L Anion Gap 6 (3-11) BUN 25 H (6-23) mg/dl Creatinine 1.28 (0.6-1.4) mg/dl Est Cr Clr Drug Dosing 61.3 ml/min Est GFR ( Amer) 67.6 ml/min Est GFR (Non-Af Amer) 58.3 ml/min BUN/Creatinine Ratio 19.5 (10-20) Glucose 221 H (70-99(Fasting)) mg/dl Calcium 9.1 (8.5-10.1) mg/dl SARS-CoV-2, RNA, NAAT (NEGATIVE) Administered Medications Vancomycin HCl 1,750 mg/ (Sodium Chloride) 535 mls @ 200 mls/hr IV NOW ONE Stop: 02/01/22 16:54 Last Admin: 08/07/21 15:17 Dose: 200 mls/hr Documented by: [id number] Discontinued Medications Piperacillin Sod/Tazobactam Sod (Zosyn) 4.5 gm in 120 mls @ 240 mls/hr IV NOW ONE Stop: 08/07/21 13:59 Last Infusion: 08/07/21 15:14 Dose: 0 mls/hr Documented by: [id number] Admin: 08/07/21 14:21 Dose: 240 mls/hr Documented by: [id number] Lisinopril (Lisinopril 5 Mg Tab) 5 mg PO NOW ONE Stop: 08/07/21 14:45 Last Admin: 08/07/21 15:17 Dose: 5 mg Documented by: [id number] Metoprolol Succinate (Metoprolol Succ 25mg Ext Rel Tab) 25 mg PO NOW STA Stop: 08/07/21 15:03 Last Admin: 08/07/21 15:31 Dose: 25 mg Documented by: [id number] Imaging Data Radiologist's Impression: Calcaneus X-Ray 08/07/21 13:11 XR calcaneus RT min 2V CLINICAL HISTORY: Nonhealing right heel wound. COMPARISON STUDY: 01/10/2021 TECHNIQUE: 2 right calcaneus views FINDINGS: Bones: There is no evidence for an acute fracture or dislocation. There is a small calcaneal spur at the origin of the plantar fascia. There is mild Achilles enthesopathy present. There is no lytic or blastic lesion. Joints: The joint spaces are maintained. The bones are in anatomic alignment. Soft tissues: Compared to the previous examination, there is a relatively large wound present involving the lateral aspect of the right heel. This extends deep within the soft tissues by approximately 8 mm. It measures 2.9 x 2.3 cm in size. There is no radiopaque foreign body. IMPRESSION: Relatively large soft tissue wound along the lateral aspect of the heel as described above. No definite radiographic evidence for underlying osteomyelitis. ACT 112: Negative or not required by law. Electronically signed by: Ryan Austin M.D. 08/07/2021 1:39 PM Discharge Plan Visit Data Chief Complaint: Foot Injury/Pain Stated Complaint: RT FOOT WOUND OPENED ED Provider: Danny Amado Discharge Problem: Diabetic ulcer of right heel, Anemia, Acute hyponatremia Forms Stand Alone Forms: My [facility] Prescriptions Prescriptions: No Action atorvastatin 40 mg Tablet 40 mg PO QAM Qty: 30 RF: 5 aspirin 81 mg Tablet,Delayed Release (Dr/Ec) 81 mg PO DAILY Qty: 30 RF: 5 lisinopril [Zestril] 5 mg Tablet 5 mg PO QAM Qty: 30 RF: 5 metoprolol succinate 25 mg Tablet Extended Release 24 Hr 25 mg PO QAM RF: 0 Novolin N NPH U-100 Insulin 100 unit/mL suspension 20 unit SUBCUT BID RF: 0 Referrals Referrals: Axel Johnson MD [Primary Care Provider] -
[2021-08-07] MEDS ORDERED: CEFEPIME 2,000 MG/20 ML VIAL IV STA (13:19)
[2021-08-07] MEDS ORDERED: PIPERACILLIN/TAZOBACTAM 4.5 GM/120 ML BAG IV ONE (13:30)
[2021-08-07] MEDS ORDERED: PATIENT'S HEIGHT AND/OR WEIGHT NEEDED SCH (13:30)
--- NOTE | 2021-08-07 13:40 | XRay Report ---
XR calcaneus RT min 2V CLINICAL HISTORY: Nonhealing right heel wound. COMPARISON STUDY: 01/10/2021 TECHNIQUE: 2 right calcaneus views FINDINGS: Bones: There is no evidence for an acute fracture or dislocation. There is a small calcaneal spur at the origin of the plantar fascia. There is mild Achilles enthesopathy present. There is no lytic or b lastic lesion. Joints: The joint spaces are maintained. The bones are in anatomic alignment. Soft tissues: Compared to the previous examination, there is a relatively large wound present involvi ng the lateral aspect of the right heel. This extends deep within the soft tissues by approximately 8 mm. It measures 2.9 x 2.3 cm in size. There is no radiopaque foreign body. IMPRESSION: Relatively large soft tissue wound along the lateral aspect of the heel as described jayden e. No definite radiographic evidence for underlying osteomyelitis. ACT 112: Negative or not required by law. Electronically signed by: Ryan Austin M.D. 08/07/2021 1:39 PM
[2021-08-07 14:09] LABS: Basophils # (auto) 0.02 K/uL (0-0.2); Basophils % (auto) 0.4 %; Eosinophils # (auto) 0.16 K/uL (0-0.5); Eosinophils % (auto) 2.8 %; Hematocrit (blood only) 35.8 % (42-52); Hemoglobin 12.2 g/dL (14.0-18.0); Lymphocytes # (auto) 0.59 K/uL (1.2-3.4); Lymphocytes % (auto) 10.5 %; Mean Corpuscular Hemoglobin 28.3 pg (25-34); Mean Corpuscular Hgb Conc 34.1 g/dL (32-36); Mean Corpuscular Volume 83.1 fL (80-100); Monocytes # (auto) 0.66 K/uL (0.11-0.59); Monocytes % (auto) 11.7 %; Neutrophils # (auto) 4.21 K/uL (1.4-6.5); Neutrophils % (auto) 74.6 %; Platelet Count 232 K/uL (130-400); RDW Coefficient of Variation 12.2 % (11.5-14.5); RDW Standard Deviation 37.6 fL (36.4-46.3); Red Blood Count 4.31 M/uL (4.7-6.1); White Blood Count 5.64 K/uL (4.8-10.8)
[2021-08-07] MEDS ORDERED: VANCOMYCIN CONSULT ACTIVE PRN ×2 (14:14→19:53)
[2021-08-07] MEDS ORDERED: VANCOMYCIN HCL 1,750 MG in SODIUM CHLORIDE 0.9% 500 ML IV ONE (14:14)
[2021-08-07 14:39] LABS: BUN Creatinine Ratio 19.5 (10-20); Calcium 9.1 mg/dl (8.5-10.1); Creatinine Clr Calc Pharmacy 61.3 ml/min; Est GFR (African American) 67.6 ml/min; Est GFR (Non-African American) 58.3 ml/min; Potassium 4.7 mmol/L (3.5-5.1)
[2021-08-07] MEDS ORDERED: lisinopril 5 MG TAB PO ONE (14:44)
[2021-08-07] MEDS ORDERED: METOPROLOL SUCC 25MG EXT REL TAB PO STA (15:02)
--- NOTE | 2021-08-07 15:19 | History & Physical Report ---
Date of Service August 07, 2021 Assessment & Plan (1) Diabetic ulcer of right heel: (2) T2DM (type 2 diabetes mellitus): (3) CAD (coronary artery disease): (4) Hypertension: Plan: This is a 66-year-old male who has significant past medical history of insulin-dependent T2DM, diabetic neuropathy, CAD with history of CABG x4, HTN, HLD, alcohol abuse, history of R calcaneal osteomyelitis who presents to ED due to worsening right heel ulcer x1 month. Pt with hx of R heel OM in past requiring debridement and 6 weeks of IV antibiotics in 01/2021. Cultures at that time grew Staph aureus, prevotella melaninogenica and bivia. Wound culture in february after repeat debridement grew pseudomonas He stopped follow up with [facility] in May and subsequently heel ulcer gradually worsened. Diabetic ulcer of right heel with concern for osteomyelitis hx of Chronic R heel Osteomyelitis Admit to med telemetry Consult orthopedics Obtain MRI with and without contrast to eval for osteomyelitis Consult vascular per request of orthopedics Blood cultures ordered continue IV antibiotics with vancomycin and zosyn Discussed with Ortho, likely plan for OR on Friday, 2/4 T2DM with hyperglycemia a1c 6.7 02/2021, will repeat in a.m. On NPH N as outpt consult glycemic pharmacy, appreciate their assistance CAD (coronary artery disease): H/O CABG in 2003 EKG ordered, no c/o CP or SOB ECHO 07/23/2019 which revealed EF 55 to 60% Continue ASA, atorvastatin, lisinopril and metoprolol HTN pt bp elevated in ED, did not take home meds give lisinopril and metoprolol now and re evaluate Anemia: Normocytic anemia Hemoglobin is 12.5 Likely secondary to chronic disease in setting of chronic osteomyelitis Hx of ETOH abuse drinks 4-6 beers nightly, last was 1 week ago DVT ppx: Lovenox, will need held prior to procedure Dispo: med tele, consider transition to med/surg in 1-2 days if remains stable PCP: Dr. Johnson FULL CODE Pt was seen and examined in collaboration with Dr. Lacey, please see addendum History of Present Illness Chief Complaint: Worsening R heel ulcer x 1 month. Primary Care Provider: Axel Johnson MD This is a 66-year-old male who has significant past medical history of insulin- dependent T2DM, diabetic neuropathy, CAD with history of CABG x4, HTN, HLD, alcohol abuse, history of Right calcaneal osteomyelitis who presents to ED due to worsening right heel ulcer x1 month. He previously had been seen and followed by Dr. Duncan of [facility]; however, stopped following up in May. He states his right heel wound was almost healed. He has noted over the past month worsening of his right heel wound. Due to neuropathy he has no feeling of pain to his bilateral feet. He has noticed increased bloody drainage as well as foul- smelling coming from his right heel wound. He was not seen by outside provider recently for this. He lives at home with his . He denies any recent fever, chills, sweats, lightheadedness, dizziness, chest pain, shortness of breath, nausea, vomiting, abdominal pain, change in bowel or urinary habits, melena or hematochezia. His appetite has been normal and he denies any weight loss. He states he stopped taking gabapentin due to losing feeling in feet bilaterally as well as Metformin due to it not working. He did not take his medications today. He was hospitalized in January of 2021 due to similar wound with osteomyelitis. Cultures at that time grew staph aureus, Provotella, Corynebacterium. Also hx of pseudomonas wound culture from February 2021. He required 6 wks of IV antibiotics. Allergies Allergy/AdvReac Type Severity Reaction Status Date / Time No Known Allergies Allergy Verified 08/07/21 14:57 Home Medications Medication Instructions Recorded Confirmed Type aspirin 81 mg tablet,delayed 81 mg PO DAILY #30 tab 02/07/20 08/07/21 Rx release atorvastatin 40 mg tablet 40 mg PO QAM #30 tab 02/07/20 08/07/21 Rx lisinopril 5 mg tablet (Zestril) 5 mg PO QAM #30 tab 02/07/20 08/07/21 Rx metoprolol succinate 25 mg 25 mg PO QAM 01/10/21 08/07/21 History tablet,extended release 24 hr insulin NPH isoph U-100 human 100 20 unit SUBCUT BID 08/07/21 08/07/21 History unit/mL subcutaneous suspension (Novolin N NPH U-100 Insulin isophane) Past Med/Surg History Medical History CAD (coronary artery disease) CABG x3 (2003) Chronic anemia Diabetes mellitus, type 2 IDDM Diabetic ulcer of right heel Hyperlipidemia Hypertension Myocardial Infarction 2004 Neuropathy Osteomyelitis Surgical History History of coronary artery bypass graft CABG x3 (2003) History of foot surgery Surgical debridement to R heel History of tooth extraction History of vasectomy S/P PICC central line placement Right arm (getting IV abx) Family History Father Multiple myeloma Other Diabetes No family history of adverse response to anesthesia Social History Smoking Status: Never smoker Second Hand Exposure: Yes ( SMOKES); Hx Alcohol Use: Yes Alcohol type: beer Alcohol Intake Frequency: 2-3 x/Week Hx Substance Use: No Preferred Language: Upper Sorbian Communication Ability: Effective Gel Coater Required: No Beliefs That Will Affect Care: None marital status: Current Living Situation: Spouse current occupational status: retired How many Children do You have: 2 How many Children do You have Comment: two daughters with one that lives close to pt. able to assist with care as needed. Feels Safe at Home: Yes during the past year weight has: remained stable Assistive Devices: Denture - Upper and Glasses Review of Systems Review of Systems: All systems reviewed & are unremarkable except as noted in HPI & below Physical Exam Physical Exam: Constitutional: WD/WN, vitals as above, NAD, sitting up in bed, pleasant, conversing easily Head: Normocephalic, Atraumatic Eyes: PERRL, conjunctivae normal, anicteric sclerae ENMT: external ear and nose normal, oropharynx normal Neck: trachea midline, no thyromegaly normal visual inspection Respiratory: normal respiratory effort, lungs clear to auscultation, no wheeze, rales, rhonchi. Normal insp/exp effort, no accessory muscle use Cardiovascular: RRR, no murmur, no edema Vessels: no JVD or carotid bruit Chest: normal inspection of chest Abdomen: normal bowel sounds, soft, nontender, no hepatosplenomegaly Musculoskeletal: no cyanosis or clubbing, extremities motor strength 5/5, b/l pedal pulse +2 and equal, R calcaneal wound noted, large, tracking through skin, fat, muscle down to bone, with surrounding skin maceration but not erythema,no drainage noted, foul smelling Skin: no rashes, warm and dry normal turgor Neurologic: PERRL, EOMI, accommodation nl, no face palsy, no dysarthria CN's II-XI intact bilaterally and moves all extremities Psychiatric: A+Ox3, euthymic affect Lymphatic: no cervical or axillary lymphadenopathy : deferred Results & Data Results & Data ([facility]) Vital Signs (Past 12 Hours) Vital Signs Temp Pulse Resp BP Pulse Ox 08/07/21 12:56 36.9 C 63 18 173/86 H 97 Diagnostic Findings Calcaneus X-Ray 08/07/21 13:11 XR calcaneus RT min 2V CLINICAL HISTORY: Nonhealing right heel wound. COMPARISON STUDY: 01/10/2021 TECHNIQUE: 2 right calcaneus views FINDINGS: Bones: There is no evidence for an acute fracture or dislocation. There is a small calcaneal spur at the origin of the plantar fascia. There is mild Achilles enthesopathy present. There is no lytic or blastic lesion. Joints: The joint spaces are maintained. The bones are in anatomic alignment. Soft tissues: Compared to the previous examination, there is a relatively large wound present involving the lateral aspect of the right heel. This extends deep within the soft tissues by approximately 8 mm. It measures 2.9 x 2.3 cm in size. There is no radiopaque foreign body. IMPRESSION: Relatively large soft tissue wound along the lateral aspect of the heel as described above. No definite radiographic evidence for underlying osteomyelitis. ACT 112: Negative or not required by law. Electronically signed by: Ryan Austin M.D. 08/07/2021 1:39 PM Medications Administered Medication List Discontinued Medications Piperacillin Sod/Tazobactam Sod (Zosyn) 4.5 gm in 120 mls @ 240 mls/hr IV NOW ONE Stop: 08/07/21 13:59 Last Admin: 08/07/21 14:21 Dose: 240 mls/hr Documented by: [id number] COVID-19 Results Results COVID-19 Adm Lab Results: RBC 4.31 M/uL (4.7-6.1) L 08/07/21 WBC 5.64 K/uL (4.8-10.8) 08/07/21 Hgb 12.2 g/dL (14.0-18.0) L 08/07/21 Hct 35.8 % (42-52) L 08/07/21 Plt Count 232 K/uL (130-400) 08/07/21 Neutrophils (%) (Auto) 74.6 % 08/07/21 Lymphocytes (%) (Auto) 10.5 % 08/07/21 Monocytes # (Auto) 0.66 K/uL (0.11-0.59) H 08/07/21 Eosinophils # (Auto) 0.16 K/uL (0-0.5) 08/07/21 Immature Granulocyte % (Auto) 0.0 % 08/07/21 Neutrophils # (Auto) 4.21 K/uL (1.4-6.5) 08/07/21 Lymphocytes # (Auto) 0.59 K/uL (1.2-3.4) L 08/07/21 Monocytes # (Auto) 0.66 K/uL (0.11-0.59) H 08/07/21 Eosinophils # (Auto) 0.16 K/uL (0-0.5) 08/07/21 Basophils # (Auto) 0.02 K/uL (0-0.2) 08/07/21 Immature Granulocyte # (Auto) 0.00 K/uL (0.00-0.02) 08/07/21 Na 131 mmol/L (136-145) L 08/07/21 K 4.7 mmol/L (3.5-5.1) 08/07/21 Cl 98 mmol/L (98-107) 08/07/21 CO2 27 mmol/L (21-32) 08/07/21 Anion Gap 6 (3-11) 08/07/21 BUN 25 mg/dl (6-23) H 08/07/21 Creatinine 1.28 mg/dl (0.6-1.4) 08/07/21 BUN/Creatinine Ratio 19.5 (10-20) 08/07/21 Glucose Level 221 mg/dl (70-99(Fasting)) H 08/07/21 Ca 9.1 mg/dl (8.5-10.1) 08/07/21 CRP 15.67 mg/dl (0-0.5) H 08/07/21 SARS-CoV-2, RNA, NAAT NEGATIVE (NEGATIVE) 08/07/21 Code Status & VTE Plan Code Status FULL CODE VTE Prophylaxis Plan VTE Prophylaxis will be ordered: Yes Supervising Physician Co-Signing Physician Notes Patient is a 66-year-old male with history of diabetes mellitus, neuropathy, coronary artery disease and other medical problems presents with history of right heel ulcer which has been gradually worsening since 1 month duration. He denies any pain secondary to diabetic neuropathy. He admits to not following up with his physician since prior admission and was required to have skin grafting as per patient. He denies any fever, chills, chest pain, shortness of breath, dizziness, nausea, abdominal pain. Please review HPI for complete details of presentation. Blood work suggestive of ESR elevated at 86, sodium 131. No leukocytosis noted. MRI, Doppler study currently pending. On exam patient is moderately built and nourished, no apparent distress, normocephalic atraumatic, EOMI, normal breath sounds, clear to auscultation, S1-S2, no murmur, no pedal edema, abdomen soft, nontender, normal bowel sounds, alert, awake, oriented, grossly no focal deficits, right calcaneal [id number] drainage noted. Patient is admitted for management of diabetic right heel ulcer. To R/O osteomyelitis. Agree with broad-spectrum antibiotics with vancomycin, Zosyn. Orthopedics and vascular surgery consulted. Blood cultures pending. Continue insulin therapy for diabetes management. I personally reviewed the record. Patient is interviewed and examined at bedside. Patient's care is coordinated with Kate Cook PA-C. Please refer to the documentation above for details of patient's presentation and for discussion of other issues. (1) CAD (coronary artery disease) Associated angina: without angina Coronary Disease-Associated Artery/Lesion type: [place] artery [place] vs. transplanted heart: [place] heart Qualified Code(s): I25.10 - Atherosclerotic heart disease of [place] coronary artery without angina pectoris
--- NOTE | 2021-08-07 15:29 | Orthopedic Consultation ---
Date of Consultation August 07, 2021 Assessment & Plan (1) Diabetic ulcer of left foot due to type 2 diabetes mellitus: Case was discussed with Dr. Duncan. Plain film is not showing signs of osteomyelitis. However, we will get an MRI with contrast to rule out any osteomyelitis that might be developing. I have also asked medicine service to consult vascular service per Dr. Duncan's request for any chance of poor healing secondary to vascular insufficiency. Patient will require irrigation debridement of the right heel. We will tentatively plan for the irrigation debridement to be done on Friday by Dr. Duncan. History of Present Illness Reason for Consultation: Diabetic heel ulcer right heel History of Present Illness Patient is a 66-year-old male with history of diabetes mellitus type 2, CAD ,status post UT, status post CABG, hypertension and hyperlipidemia who underwent Right Foot irrigation and sharp excisional debridement of Heel diabetic neuropat hic ulcerations x2 including skin and subcutaneous tissue, fascia, periosteum and bone by Dr. Duncan in February 2021. History is taken from the patient and his daughter who is present. After surgery, the patient was starting to progress well with the healing of his ulceration. He states that he the last time he saw Dr. Duncan in follow-up was around May. The heel continued to look better and the patient did not follow-up any further after that time. He states that he knows that he should have been following up however he was being stubborn and did not want to. His daughter states that he has been putting weight on the heel and not really following his precautions. They began noticing changes in the heel that continued to worsen. He now comes to the emergency room with a large right heel ulceration. Patient denies any fevers, chills, nausea or vomiting in the recent past. We have been asked to see him for this. Allergies Allergy/AdvReac Type Severity Reaction Status Date / Time No Known Allergies Allergy Verified 08/07/21 14:57 Home Medications Medication Instructions Recorded Confirmed Type aspirin 81 mg tablet,delayed 81 mg PO DAILY #30 tab 02/07/20 08/07/21 Rx release atorvastatin 40 mg tablet 40 mg PO QAM #30 tab 02/07/20 08/07/21 Rx lisinopril 5 mg tablet (Zestril) 5 mg PO QAM #30 tab 02/07/20 08/07/21 Rx metoprolol succinate 25 mg 25 mg PO QAM 01/10/21 08/07/21 History tablet,extended release 24 hr insulin NPH isoph U-100 human 100 20 unit SUBCUT BID 08/07/21 08/07/21 History unit/mL subcutaneous suspension (Novolin N NPH U-100 Insulin isophane) Patient History Medical History CAD (coronary artery disease) CABG x3 (2003) Chronic anemia Diabetes mellitus, type 2 IDDM Diabetic ulcer of right heel Hyperlipidemia Hypertension Myocardial Infarction 2003 Neuropathy Osteomyelitis Surgical History History of coronary artery bypass graft CABG x3 (2003) History of foot surgery Surgical debridement to R heel History of tooth extraction History of vasectomy S/P PICC central line placement Right arm (getting IV abx) Family History Father Multiple myeloma Other Diabetes No family history of adverse response to anesthesia Social History Smoking Status: Never smoker Second Hand Exposure: Yes ( smokes); Hx Alcohol Use: Yes Alcohol type: beer Alcohol Intake Frequency: 2-3 x/Week Hx Substance Use: No Preferred Language: Urdu Communication Ability: Effective Clerk General Office Required: No Beliefs That Will Affect Care: None marital status: Current Living Situation: Spouse current occupational status: retired How many Children do You have: 2 How many Children do You have Comment: two daughters with one that lives close to pt. able to assist with care as needed. Other Information That Helps Us Care for You: No Feels Safe at Home: Yes Safety Concerns: Feels Safe At This Time during the past year weight has: remained stable Assistive Devices: None Physical Exam Physical Exam: On examination, the patient is a 66-year-old white male who appears a little older than his stated age. He is alert and oriented x3. No acute distress. Pleasant and cooperative. On examination of his right foot, I can smell a foul odor even before seeing his heel. There is no noted erythema over the dorsum of the foot and he has a strong dorsalis pedis pulse. Upon examination of his plantar aspect of the foot, he has a very large diabetic ulceration on the posterior medial aspect of the heel. The ulceration is open at about 3 cm in length and about 2 cm in width however the edges of the ulceration are flared out. The edges are very light mac to white in color. The whole ulceration is approximately 5 to 6 cm in length and 4 cm in width. Again there is foul odor noted and he does have some red to brownish scant drainage coming from this wound. Patient does have neuropathy and states he is not having any pain. He states that his neuropathy goes almost to his knee. He has a cellulitis surrounding a portion of the heel that goes up the lateral aspect to the ankle and also down the plantar surface distally. He does have some mild erythema on the medial aspect of the foot. Results & Data ([facility]) Vital Signs (Past 12 Hours) Vital Signs Temp Pulse Pulse Resp BP BP Pulse Ox 08/07/21 15:00 95 H 22 155/85 H 100 08/07/21 12:56 36.9 C 63 18 173/86 H 97 Laboratory Results Laboratory Results WBC 5.64 K/uL (4.8-10.8) 08/07/21 14:01 RBC 4.31 M/uL (4.7-6.1) L 08/07/21 14:01 Hgb 12.2 g/dL (14.0-18.0) L 08/07/21 14:01 Hct 35.8 % (42-52) L 08/07/21 14:01 MCV 83.1 fL (80-100) 08/07/21 14:01 MCH 28.3 pg (25-34) 08/07/21 14:01 MCHC 34.1 g/dL (32-36) 08/07/21 14:01 RDW Std Deviation 37.6 fL (36.4-46.3) 08/07/21 14:01 RDW Coeff of Mau 12.2 % (11.5-14.5) 08/07/21 14: Plt Count 232 K/uL (130-400) 08/07/21 14:01 MPV 9.0 fL (7.4-10.4) 08/07/21 14:01 Immature Gran % (Auto) 0.0 % 08/07/21 14:01 Neut % (Auto) 74.6 % 08/07/21 14:01 Lymph % (Auto) 10.5 % 08/07/21 14:01 [place] % (Auto) 11.7 % 08/07/21 14:01 Eos % (Auto) 2.8 % 08/07/21 14:01 Baso % (Auto) 0.4 % 08/07/21 14:01 Neut # (Auto) 4.21 K/uL (1.4-6.5) 08/07/21 14:01 Lymph # (Auto) 0.59 K/uL (1.2-3.4) L 08/07/21 14:01 [place] # (Auto) 0.66 K/uL (0.11-0.59) H 08/07/21 14:01 Eos # (Auto) 0.16 K/uL (0-0.5) 08/07/21 14:01 Baso # (Auto) 0.02 K/uL (0-0.2) 08/07/21 14:01 Immature Gran # (Auto) 0.00 K/uL (0.00-0.02) 08/07/21 14:01 ESR 86 mm/hr (0-20) H 08/07/21 14:01 Sodium 131 mmol/L (136-145) L 08/07/21 14:01 Potassium 4.7 mmol/L (3.5-5.1) 08/07/21 14:01 Chloride 98 mmol/L (98-107) 08/07/21 14:01 Carbon Dioxide 27 mmol/L (21-32) 08/07/21 14:01 Anion Gap 6 (3-11) 08/07/21 14:01 BUN 25 mg/dl (6-23) H 08/07/21 14:01 Creatinine 1.28 mg/dl (0.6-1.4) 08/07/21 14:01 Est Cr Clr Drug Dosing 61.3 ml/min 08/07/21 14:01 Est GFR ( Amer) 67.6 ml/min 08/07/21 14:01 Est GFR (Non-Af Amer) 58.3 ml/min 08/07/21 14:01 BUN/Creatinine Ratio 19.5 (10-20) 08/07/21 14:01 Glucose 221 mg/dl (70-99(Fasting)) H 08/07/21 14:01 Calcium 9.1 mg/dl (8.5-10.1) 08/07/21 14:01 SARS-CoV-2, RNA, NAAT NEGATIVE (NEGATIVE) 08/07/21 13:30 Impressions Calcaneus X-Ray 08/07/21 13:11 XR calcaneus RT min 2V CLINICAL HISTORY: Nonhealing right heel wound. COMPARISON STUDY: 01/10/2021 TECHNIQUE: 2 right calcaneus views FINDINGS: Bones: There is no evidence for an acute fracture or dislocation. There is a small calcaneal spur at the origin of the plantar fascia. There is mild Achilles enthesopathy present. There is no lytic or blastic lesion. Joints: The joint spaces are maintained. The bones are in anatomic alignment. Soft tissues: Compared to the previous examination, there is a relatively large wound present involving the lateral aspect of the right heel. This extends deep within the soft tissues by approximately 8 mm. It measures 2.9 x 2.3 cm in size. There is no radiopaque foreign body. IMPRESSION: Relatively large soft tissue wound along the lateral aspect of the heel as described above. No definite radiographic evidence for underlying osteomyelitis. ACT 112: Negative or not required by law. Electronically signed by: Ryan Austin M.D. 08/07/2021 1:39 PM
--- NOTE | 2021-08-07 18:02 | Ultrasound Report ---
ULTRASOUND RIGHT LOWER EXTREMITY ARTERIAL CLINICAL HISTORY: Diminished lower extremity pulses. COMPARISON STUDY: Doppler arterial ultrasound of the right lower extremity dated 05/16/2020. TECHNIQUE: Real-time grayscale and color Doppler sonography of the arteries of the right lower extrem ity is performed from the inguinal crease to the foot. FINDINGS: Atherosclerotic plaque and irregularity seen throughout the arteries of the right lower ext remity. There are triphasic waveforms in the common femoral artery with velocities measuring up to 11 5 cm/s. The profunda femoris artery is patent with velocities measuring up to 96 cm/s. Triphasic wave forms are seen throughout the superficial femoral and popliteal arteries. Velocities in superficial f emoral artery measure up to 173 cm/s and velocities in the popliteal artery measure up to 152 cm/s. T here is three-vessel runoff to the foot. Velocities within the calf arteries measure up to 166 cm/s. The dorsalis pedis artery is patent with velocities measuring up to 83 cm second. IMPRESSION: There is no sonographic evidence of high-grade stenosis or focal vessel cutoff throughout the arteries of the right lower extremity. Dictated: 08/07/2021 5:34 PM Transcribed: 08/07/2021 5:48 PM Nancy [id number] Electronically signed by: Ochoa Ramey M.D. 08/07/2021 6:01 PM
[2021-08-07] MEDS ORDERED: SODIUM CHLORIDE 0.9% 1000ML 1,000 ML IV SCH (19:53)
[2021-08-07] MEDS ORDERED: ACETAMINOPHEN 325 MG TAB PO PRN (19:53)
[2021-08-07] MEDS ORDERED: ONDANSETRON INJ 2 MG/ML 2 ML VIAL IV PRN (19:53)
[2021-08-07] MEDS ORDERED: DEXTROSE 50% 50 ML SYRINGE IV PRN (19:53)
[2021-08-07] MEDS ORDERED: ALUMINUM/MAGNESIUM SUSP 30 ML UDC PO PRN (19:53)
[2021-08-07] MEDS ORDERED: GLUCOSE 10 TABS/TUBE PO PRN (19:53)
[2021-08-07] MEDS ORDERED: PIPERACILL/TAZOBAC CONSULT ACTIVE PRN (19:53)
[2021-08-07] MEDS ORDERED: CARBOHYDRATES FOR HYPOGLYCEMIA PO PRN (19:53)
[2021-08-07] MEDS ORDERED: GLUCOSE 40% GEL 15 GM TUBE PO PRN (19:53)
[2021-08-07] MEDS ORDERED: GLUCAGON FOR INJ 1 MG VIAL SQ PRN (19:53)
[2021-08-07] MEDS ORDERED: POLYETHYLENE (MIRALAX) 17 GM PACK PO PRN (19:53)
[2021-08-07] MEDS ORDERED: MAGNESIUM HYDROXIDE SUSP 30 ML UDC PO PRN (19:53)
[2021-08-07] MEDS ORDERED: PHARMACY GLYCEMIC MGMT CONSULT PRN (19:53)
[2021-08-07] MEDS: INSULIN ASPART PER UNIT SC SCH ×2 (20:54→21:01)
--- NOTE | 2021-08-07 20:58 | Magnetic Resonance Report ---
MRI OF THE RIGHT ANKLE WITHOUT IV CONTRAST CLINICAL HISTORY: Heel ulceration. COMPARISON STUDY: CT scan of the right foot dated 01/10/2021. Radiographs of the right calcaneus dated 08/07/2021. MRI of the right ankle dated 08/22/2020. TECHNIQUE: MRI of the right ankle is performed utilizing various T1 and T2-weighted sequences in the axial, sagittal, and coronal planes. IV contrast was not administered for this examination. The exami nation is compromised by motion artifact. FINDINGS: There is a large cutaneous ulceration along the lateral aspect of the dorsal heel. This is filled with complex material which may represent surgical packing. There is marked marrow edema ident ified throughout the calcaneus. Erosive change is seen along the dorsal and plantar aspect of the [place] deep to the cutaneous defect. Findings are typical for osteomyelitis. Micrometallic artifact w ithin the anterior calcaneus is likely related to previous surgery. No similar appearing marrow holloway es identified throughout the remainder of the ankle. The ankle mortise is intact. There is no osteoch ondral defect in the talar dome. There is no ankle joint effusion. Normal fat is maintained within th e sinus tarsi. There is marked thickening and tendinopathy of the Achilles tendon with partial thickn ess tearing. No full-thickness rupture is seen. Disruption of the medial fibers of the Achilles tendo n is seen on axial image #3. The anterior tibiofibular and talofibular ligament appear intact. There is a split tear of the peroneus brevis tendon. The anterior and posterior tendons appear intact. Ther e is likely disruption of the lateral band of the plantar fascia at the calcaneal attachment. There i s tenosynovitis of the peroneal tendons. The medial band appears intact. Significant soft tissue teodora a is present around the ankle and hindfoot, typical for cellulitis. No organized fluid collection is seen to suggest abscess. Generalized atrophy is noted in the regional musculature. Nonspecific edema is noted throughout Kagers fat pad. IMPRESSION: 1. There is a large cutaneous defect/wound identified along the lateral aspect of the heel. Complex m aterial within this wound may represent surgical packing and clinical correlation will be essential. 2. There is marked marrow edema throughout the calcaneus with erosive change along the dorsal and neeta ntar aspect of the bone deep to the cutaneous defect. The appearance is typical for osteomyelitis and clinical correlation will be required. 3. There is evidence of significant surrounding cellulitis. No organized fluid collection is clearly seen to indicate abscess. 4. There is likely disruption of the lateral bundle of the plantar fascia at the calcaneal attachment . 5. There is marked thickening and tendinopathy of the Achilles tendon with partial thickness tearing. 6. There is a split tear of the peroneus brevis tendon with tenosynovitis of the peroneal tendons. Dictated: 08/07/2021 8:22 PM Transcribed: 08/07/2021 8:54 PM Nancy [id number] [email or web address] Electronically signed by: Ochoa Ramey M.D. 08/07/2021 8:57 PM
[2021-08-07] MEDS: PIPERACILLIN/TAZOBACTAM 3.375 GM in DEXTROSE 5% 100 ML IV SCH (20:59)
[2021-08-07] MEDS: ENOXAPARIN INJ 40 MG/0.4 ML SYR SQ SCH (20:59)
[2021-08-07] MEDS ORDERED: INSULIN HUMAN NPH SC SCH (21:00)
[2021-08-07] MEDS ORDERED: guaiFENesin SUGAR FREE 200 MG/10 ML UDC PO PRN (21:23)
[2021-08-08] MEDS ORDERED: INSULIN ASPART PER UNIT SC SCH (02:00)
[2021-08-08] MEDS: VANCOMYCIN HCL 750 MG in SODIUM CHLORIDE 0.9% 250 ML IV SCH ×2 (02:40→17:29)
[2021-08-08] MEDS: PIPERACILLIN/TAZOBACTAM 3.375 GM in DEXTROSE 5% 100 ML IV SCH ×3 (04:56→20:31)
[2021-08-08 07:54] LABS: Basophils # (auto) 0.01 K/uL (0-0.2); Basophils % (auto) 0.2 %; Eosinophils # (auto) 0.23 K/uL (0-0.5); Eosinophils % (auto) 5.6 %; Hematocrit (blood only) 29.2 % (42-52); Hemoglobin 9.8 g/dL (14.0-18.0); Immature Granulocytes # (auto) 0.01 K/uL (0.00-0.02); Immature Granulocytes % (auto) 0.2 %; Lymphocytes # (auto) 0.73 K/uL (1.2-3.4); Lymphocytes % (auto) 17.7 %; Mean Corpuscular Hemoglobin 28.1 pg (25-34); Mean Corpuscular Hgb Conc 33.6 g/dL (32-36); Mean Corpuscular Volume 83.7 fL (80-100); Mean Platelet Volume 8.9 fL (7.4-10.4); Monocytes % (auto) 12.1 %; Neutrophils # (auto) 2.64 K/uL (1.4-6.5); Neutrophils % (auto) 64.2 %; Platelet Count 207 K/uL (130-400); RDW Coefficient of Variation 12.5 % (11.5-14.5); Red Blood Count 3.49 M/uL (4.7-6.1); White Blood Count 4.12 K/uL (4.8-10.8)
--- NOTE | 2021-08-08 07:56 | XRay Report ---
XR chest 1V portable HISTORY: cough COMPARISON: Chest 01/16/2021. FINDINGS: No pneumothorax. No pleural effusions. There are low lung volumes. The heart is borderline enlarged. This remains unchanged. There are poststernotomy changes. No new focal lung consolidations to suggest pneumonia. No evidence for pulmonary edema. IMPRESSION: No focal lung consolidations to suggest pneumonia. ACT 112: Negative or not required by law. Electronically signed by: Scar Calvert M.D. 08/08/2021 7:55 AM
[2021-08-08 08:28] LABS: Albumin Globulin Ratio 0.8 (0.9-2); Albumin Level 2.8 gm/dl (3.4-5.0); BUN Creatinine Ratio 18.6 (10-20); Bilirubin,Total 0.4 mg/dl (0.2-1.0); Calcium 7.9 mg/dl (8.5-10.1); Creatinine Clr Calc Pharmacy 66.1 ml/min; Est GFR (Non-African American) 57.8 ml/min; Globulin 3.5 gm/dl (2.5-4.0); Potassium 3.7 mmol/L (3.5-5.1); Total Protein 6.3 gm/dl (6.0-8.3)
[2021-08-08] MEDS: ATORVASTATIN 40 MG TAB PO SCH (08:58)
[2021-08-08] MEDS: lisinopril 5 MG TAB PO SCH (08:59)
[2021-08-08] MEDS: ASPIRIN 81 MG ECTAB PO SCH (08:59)
[2021-08-08] MEDS: METOPROLOL SUCC 25MG EXT REL TAB PO SCH (09:00)
[2021-08-08] MEDS ORDERED: INSULIN HUMAN NPH SC SCH (09:00)
--- NOTE | 2021-08-08 09:00 | Pharmacy Report ---
Pharmacy Vanc AUC Short Note - Date of Service August 08, 2021 - Assessment & Plan Assessment 66 year old M receiving Vancomycin and Zosyn for treatment of diabetic foot ulcer and possible osteomyelitis. * MRI of R foot is concerning for osteomyelitis. Tentative plan for irrigation and debridement on Friday. * Afebrile and without leukocytosis. ESR/CRP elevated. Renal fxn stable. * Blood cultures pending. Plan Vancomycin * AUC/BRUCE is the preferred PK/PD target for vancomycin * AUC guided dosing is effective and associated with decreased risk of nephrotoxicity compared to traditional trough targets * Loading dose of 1750 mg IV x 1 * Maintenance dose of 750 mg IV every 12 hours is expected to achieve goal AUC/BRUCE of 400-600 mg/L.hr with an associated 12% risk of nephrotoxicity. * Trough ordered for 08/09/21 prior to the 1500 dose Zosyn * 4.5 g IV x 1 followed by 3.375 g IV every 8 hours Pharmacy will continue to follow and will adjust dose/frequency as necessary. Thank you.
[2021-08-08] MEDS: INSULIN ASPART PER UNIT SC SCH ×4 (09:07→21:18)
--- NOTE | 2021-08-08 11:18 | Orthopedic Progress Note ---
Date of Service August 08, 2021 Assessment & Plan (1) Chronic refractory osteomyelitis of foot: Plan: MRI reviewed. Osteomyelitis again noted of the right heel. Continue IV antibiotics at this point time. Daily dressing changes. Plan for irrigation and debridement of right heel ulcer and curetted of right heel osteomyelitis with possible osteotomy by Dr. Duncan this Friday. Admission and Anticipated Discharge Date Admission Date: August 07, 2021 Subjective Patient sitting up in bed awake and alert. No complaints. No new changes. Physical Exam Physical Exam: Seems intact around the right heel. Foul odor noted. Toes are pink and warm. Strong dorsalis pedis pulse present. Results & Data ([facility]) Vital Signs (Past 12 Hours) Vital Signs Temp Pulse Pulse Resp BP BP Pulse Ox 08/08/21 07:50 64 08/08/21 07:09 36.8 C 65 18 105/61 98 08/08/21 03:15 36.6 C 70 18 104/63 96 08/08/21 01:36 111/68 Diagnostic Findings Patient:SLADE MENDOZA Admit Date:08/07/21 MR#:[id number] Address1:[address] [facility] [facility] Acct ID:[id number] Address2: Date:[address] [facility] Zip:[place] [address] Age:66 Location: Sex:M Room/Bed:[address] Phy:Wilver Lacey MD Diagnosis:R HEEL DIABETIC ULCER [place] Phy:Axel Johnson MD Service Date:08/07/21 Fam Phy: Interpreting Phy:Ochoa Ramey MDAdmit Phy:Wilver Lacey MD Ordering Phy:Kate Cook PA-C cc: ~ MRI OF THE RIGHT ANKLE WITHOUT IV CONTRAST CLINICAL HISTORY: Heel ulceration. COMPARISON STUDY: CT scan of the right foot dated 01/10/2021. Radiographs of the right calcaneus dated 08/07/2021. MRI of the right ankle dated 08/22/2020. TECHNIQUE: MRI of the right ankle is performed utilizing various T1 and T2- weighted sequences in the axial, sagittal, and coronal planes. IV contrast was not administered for this examination. The examination is compromised by motion artifact. FINDINGS: There is a large cutaneous ulceration along the lateral aspect of the dorsal heel. This is filled with complex material which may represent surgical packing. There is marked marrow edema identified throughout the calcaneus. Erosive change is seen along the dorsal and plantar aspect of the calcaneus deep to the cutaneous defect. Findings are typical for osteomyelitis. Micrometallic artifact within the anterior calcaneus is likely related to previous surgery. No similar appearing marrow changes identified throughout the remainder of the ankle. The ankle mortise is intact. There is no osteochondral defect in the talar dome. There is no ankle joint effusion. Normal fat is maintained within the sinus tarsi. There is marked thickening and tendinopathy of the Achilles tendon with partial thickness tearing. No full-thickness rupture is seen. Disruption of the medial fibers of the Achilles tendon is seen on axial image #3. The anterior tibiofibular and talofibular ligament appear intact. There is a split tear of the peroneus brevis tendon. The anterior and posterior tendons appear intact. There is likely disruption of the lateral band of the plantar fascia at the calcaneal attachment. There is tenosynovitis of the peroneal tendons. The medial band appears intact. Significant soft tissue edema is present around the ankle and hindfoot, typical for cellulitis. No organized fluid collection is seen to suggest abscess. Generalized atrophy is noted in the regional musculature. Nonspecific edema is noted throughout Kagers fat pad. IMPRESSION: 1. There is a large cutaneous defect/wound identified along the lateral aspect of the heel. Complex material within this wound may represent surgical packing and clinical correlation will be essential. 2. There is marked marrow edema throughout the calcaneus with erosive change along the dorsal and plantar aspect of the bone deep to the cutaneous defect. The appearance is typical for osteomyelitis and clinical correlation will be required. 3. There is evidence of significant surrounding cellulitis. No organized fluid collection is clearly seen to indicate abscess. 4. There is likely disruption of the lateral bundle of the plantar fascia at the calcaneal attachment. 5. There is marked thickening and tendinopathy of the Achilles tendon with partial thickness tearing. 6. There is a split tear of the peroneus brevis tendon with tenosynovitis of the peroneal tendons. Dictated: 08/07/2021 8:22 PM Transcribed: 08/07/2021 8:54 PM Nancy [id number] Malick
--- NOTE | 2021-08-08 11:37 | Electrocardiogram Report ---
Test Reason : Blood Pressure : / mmHG Vent. Rate : 070 BPM Atrial Rate : 070 BPM P-R Int : 146 ms QRS Dur : 090 ms QT Int : 422 ms P-R-T Axes : 008 007 016 degrees QTc Int : 455 ms Normal sinus rhythm Cannot rule out Inferior infarct Abnormal ECG When compared with ECG of 10-JAN-2021 15:32, No significant change was found Confirmed by Jack Bradford ([id number]) on 08/08/2021 11:37:18 AM Referred By: REFERRED SELF Confirmed By:Jack Bradford
--- NOTE | 2021-08-08 14:03 | Pharmacy Report ---
Pharmacy Glycemic Short Note 2 - Date of Service August 08, 2021 - Glycemic Short BSG Results (Last 24 hours): 08/07/21 08/07/21 08/08/21 14:01 19:51 01:52 Glucose 221 H POC Glucose 143 H 131 H 08/08/21 08/08/21 08/08/21 06:59 07:41 11:36 Glucose 131 H POC Glucose 156 H 180 H OUTPATIENT ANTIDIABETIC REGIMEN: * NPH 20 units SC BID * HbA1c pending ASSESSMENT: * 66 yo M admitted secondary to diabetic foot ulcer and possible osteomyelitis. Pharmacy has been consulted to assist with inpatient glycemic management. Patient is ordered a T2DM diet for now. Unsure if there are plans for surgery at this time. * Admission BSG was 143 mg/dL last evening. Patient received 10 units of NPH and 5 units of Novolog at that time. * Fasting BSG was 156 mg/dL this AM. Will start NPH at 75% of home dose. * Lunch BSG did increase to 180 mg/dL at lunch today so tightened carb ratio slightly from admission. Targeting a goal of 110-140 mg/dL to promote wound healing and help prevent infection. PLAN FOR INPATIENT GLYCEMIC CONTROL: * Basal insulin * NPH 10 units SC x 1 last evening * NPH 15 units SC BIDM * Bolus insulin * NovoLog per scale ACHS or Q6hrs while NPO * Goal Range: Low 110 mg/dL - High 140 mg/dL * Correction Factor: 25 mg/dL/unit * Nutritional / Prandial insulin per carb ratio of 1 unit per 8 grams CHO consumed PLAN FOR DISCHARGE: * HbA1c ordered but unreadable by inpatient lab - will become a send out
--- NOTE | 2021-08-08 14:24 | Hospitalist Progress Note ---
Date of Service August 08, 2021 Assessment & Plan (1) Diabetic ulcer of right heel: Plan: This is a 66-year-old male who has significant past medical history of insulin- dependent T2DM, diabetic neuropathy, CAD with history of CABG x4, HTN, HLD, alcohol abuse, history of R calcaneal osteomyelitis who presents to ED due to worsening right heel ulcer x1 month. Pt with hx of R heel OM in past requiring debridement and 6 weeks of IV antibiotics in 01/2021. Cultures at that time grew Staph aureus, prevotella melaninogenica and bivia. Wound culture in february after repeat debridement grew pseudomonas He stopped follow up with [facility] in May and subsequently heel ulcer gradually worsened. Diabetic ulcer of right heel osteomyelitis hx of Chronic R heel Osteomyelitis MRI of the Rt Ankle: IMPRESSION: 1. There is a large cutaneous defect/wound identified along the lateral aspect of the heel. Complex material within this wound may represent surgical packing and clinical correlation will be essential. 2. There is marked marrow edema throughout the calcaneus with erosive change along the dorsal and plantar aspect of the bone deep to the cutaneous defect. The appearance is typical for osteomyelitis and clinical correlation will be required. 3. There is evidence of significant surrounding cellulitis. No organized fluid collection is clearly seen to indicate abscess. 4. There is likely disruption of the lateral bundle of the plantar fascia at the calcaneal attachment. 5. There is marked thickening and tendinopathy of the Achilles tendon with partial thickness tearing. 6. There is a split tear of the peroneus brevis tendon with tenosynovitis of the peroneal tendons. Consult vascular per request of orthopedics Blood cultures ordered-pending for now continue IV antibiotics with vancomycin and zosyn Appreciate Ortho input and recommendation He has been put for debridement on fourth of this month (2) T2DM (type 2 diabetes mellitus): Plan: T2DM with hyperglycemia a1c 6.7 02/2021, will repeat in a.m. On NPH N as outpt consult glycemic pharmacy, appreciate their assistance (3) CAD (coronary artery disease): Plan: CAD (coronary artery disease): H/O CABG in 2003 EKG ordered, no c/o CP or SOB ECHO 07/23/2019 which revealed EF 55 to 60% Continue ASA, atorvastatin, lisinopril and metoprolol Denies any cardiac symptoms (4) Hypertension: Plan: HTN pt bp elevated in ED, did not take home meds give lisinopril and metoprolol now and re evaluate Blood pressure remains on the upper side of normal at 142/83 Plan: Anemia Normocytic anemia Hemoglobin is 12.5 Likely secondary to chronic disease in setting of chronic osteomyelitis Hx of ETOH abuse drinks 4-6 beers nightly, last was 1 week ago DVT ppx: Lovenox, will need held prior to procedure Dispo: med tele, consider transition to med/surg in 1-2 days if remains stable PCP: Dr. Johnson FULL CODE Admission and Anticipated Discharge Date Admission Date: August 07, 2021 Subjective 08/08/2021 The patient was seen and examined in medical telemetry unit He denies any pain in the foot but has osteomyelitis involving the right heel bones #Peripheral neuropathy secondary to diabetes Review of Systems Review of Systems: All systems reviewed and are unremarkable except as noted below Physical Exam Physical Exam: Lying in bed comfortably Constitutional: well developed and well nourished; not ill appearing Eyes: PERRL, conjunctivae normal, anicteric sclerae ENMT: external ear and nose normal, oropharynx normal Neck: trachea midline, no thyromegaly Respiratory: no respiratory distress Auscultation: lungs clear to auscultation bilaterally Cardiovascular: Rate/Rhythm: regular rate and regular rhythm; not tachycardic Heart Sounds: normal S1 and normal S2; no murmur Extremities: + edema (Trace edema on the right side) Gastrointestinal (Abdomen): Inspection/Auscultation: abdomen not distended Percussion/Palpation: abdomen soft; abdomen nontender Musculoskeletal: No acute arthritis in any joint. Right foot is bandaged and has healed wounds with osteomyelitis Results & Data Results & Data ([facility]) Vital Signs (Past 12 Hours) Vital Signs Temp Pulse Pulse Resp BP BP Pulse Ox 08/08/21 11:24 36.4 C L 65 18 142/83 H 99 08/08/21 07:50 64 08/08/21 07:09 36.8 C 65 18 105/61 98 08/08/21 03:15 36.6 C 70 18 104/63 96 Laboratory Results Short CBC 08/08/21 Range/Units 06:59 WBC 4.12 L (4.8-10.8) K/uL Hgb 9.8 L (14.0-18.0) g/dL Hct 29.2 L (42-52) % Plt Count 207 (130-400) K/uL BMP 08/07/21 08/08/21 14:01 06:59 Sodium 131 L 133 L Potassium 4.7 3.7 D Chloride 98 102 Carbon Dioxide 27 25 BUN 25 H 24 H Creatinine 1.28 1.29 Glucose 221 H 131 H Calcium 9.1 7.9 L Liver Function 08/08/21 Range/Units 06:59 Total Bilirubin 0.4 (0.2-1.0) mg/dl AST 13 (13-39) U/L ALT 13 (7-52) U/L Alkaline Phosphatase 66 (34-104) U/L Albumin 2.8 L (3.4-5.0) gm/dl Medications Administered Current Inpatient Medications Acetaminophen (Acetaminophen 325 Mg Tab) 650 mg PO Q4H PRN PRN Reason: Pain or Fever Stop: 09/06/21 19:52 Al Hydrox/Mg Hydrox/Simethicone (Aluminum/Magnesium Susp 30 Ml Udc) 15 ml PO Q4H PRN PRN Reason: Dyspepsia Stop: 09/06/21 19:52 Aspirin (Aspirin 81 Mg Ectab) 81 mg PO DAILY AKUA Stop: 09/07/21 08:59 Last Admin: 08/08/21 08:59 Dose: 81 mg Documented by: Atorvastatin Calcium (Atorvastatin 40 Mg Tab) 40 mg PO QAM AKUA Stop: 09/07/21 08:59 Last Admin: 08/08/21 08:58 Dose: 40 mg Documented by: Dextrose (Dextrose 50% 50 Ml Syringe) 25 - 50 ml IV UD PRN; Protocol PRN Reason: Hypoglycemia Protocol Stop: 09/06/21 19:52 Enoxaparin Sodium (Enoxaparin Inj 40 Mg/0.4 Ml Syr) 40 mg SQ Q24H AKUA Stop: 09/06/21 21:59 Last Admin: 08/07/21 20:59 Dose: 40 mg Documented by: Glucagon (Glucagon For Inj 1 Mg Vial) 1 mg SQ UD PRN; Protocol PRN Reason: Hypoglycemia Protocol Stop: 09/06/21 19:52 Glucose (Glucose 10 Tabs/Tube) 4 - 8 tabs PO UD PRN; Protocol PRN Reason: Hypoglycemia Protocol Stop: 09/06/21 19:52 Glucose (Glucose 40% Gel 15 Gm Tube) 15 - 30 gm PO UD PRN; Protocol PRN Reason: Hypoglycemia Protocol Stop: 09/06/21 19:52 Guaifenesin (Guaifenesin Sugar Free 200 Mg/10 Ml Udc) 200 mg PO Q6H PRN PRN Reason: Cough Stop: 09/06/21 21:22 Last Admin: 08/07/21 22:06 Dose: 200 mg Documented by: Piperacillin Sod/Tazobactam (Sod 3.375 gm/ Dextrose) 115 mls @ 28.75 mls/hr IV Q8H PENDING SALE TO [facility]; Protocol Stop: 09/18/21 20:29 Last Admin: 08/08/21 12:57 Dose: 28.8 mls/hr Documented by: Vancomycin HCl 750 mg/ Sodium (Chloride) 265 mls @ 200 mls/hr IV Q12H PENDING SALE TO [facility]; Protocol Stop: 09/19/21 02:59 Last Infusion: 08/08/21 04:45 Dose: Infused Documented by: Insulin Aspart (Insulin Aspart Per Unit) [facility]; Protocol Stop: 09/06/21 19:52 Last Admin: 08/08/21 12:27 Dose: 7 units Documented by: Insulin Human NPH (Insulin Human Nph) 15 units SC BIDM PENDING SALE TO [facility]; Protocol Stop: 09/07/21 08:59 Lisinopril (Lisinopril 5 Mg Tab) 5 mg PO [facility] Stop: 09/07/21 08:59 Last Admin: 08/08/21 08:59 Dose: 5 mg Documented by: Magnesium Hydroxide (Magnesium Hydroxide Susp 30 Ml Udc) 30 ml PO Q12H PRN PRN Reason: Constipation Stop: 09/06/21 19:52 Metoprolol Succinate (Metoprolol Succ 25mg Ext Rel Tab) 25 mg PO [facility] Stop: 09/07/21 08:59 Last Admin: 08/08/21 09:00 Dose: 25 mg Documented by: Miscellaneous (Carbohydrates For Hypoglycemia ) 15 - 30 gm PO UD PRN PRN Reason: Hypoglycemia Protocol Stop: 09/06/21 19:52 Miscellaneous Information (Pharmacy Glycemic Mgmt Consult) 1 ea N/A UD PRN; Protocol PRN Reason: Consult Stop: 09/06/21 19:52 Miscellaneous Information (Vancomycin Consult Active) 1 ea N/A UD PRN PRN Reason: Consult Stop: 09/06/21 19:52 Miscellaneous Information (Piperacill/Tazobac Consult Active) 1 ea N/A UD PRN PRN Reason: Consult Stop: 09/06/21 19:52 Ondansetron HCl (Ondansetron Inj 2 Mg/Ml 2 Ml Vial) 4 mg IV Q6H PRN PRN Reason: Nausea Stop: 09/06/21 19:52 Polyethylene Glycol (Polyethylene (Miralax) 17 Gm Pack) 17 gm PO DAILY PRN PRN Reason: Constipation Stop: 09/06/21 19:52 (1) Diabetic ulcer of right heel Diabetes mellitus type: other specified (including TEVIN) Non-pressure ulcer stage: unspecified non-pressure ulcer stage Qualified Code(s): E13.621 - Other specified diabetes mellitus with foot ulcer; L97.419 - Non-pressure chronic ulcer of right heel and midfoot with unspecified severity (2) CAD (coronary artery disease) Coronary Disease-Associated Artery/Lesion type: [place] artery [place] vs. transplanted heart: [place] heart Associated angina: without angina Qualified Code(s): I25.10 - Atherosclerotic heart disease of [place] coronary artery without angina pectoris
[2021-08-08 14:33] LABS: Estimated Average Glucose 177 mg/dl; Hemoglobin A1C 7.8 % (4.5-5.6)
[2021-08-08] MEDS: INSULIN HUMAN NPH SC SCH (17:32)
[2021-08-08] MEDS: ENOXAPARIN INJ 40 MG/0.4 ML SYR SQ SCH (21:20)
[2021-08-09] MEDS: VANCOMYCIN HCL 750 MG in SODIUM CHLORIDE 0.9% 250 ML IV SCH (03:00)
[2021-08-09] MEDS: PIPERACILLIN/TAZOBACTAM 3.375 GM in DEXTROSE 5% 100 ML IV SCH ×3 (05:05→19:42)
[2021-08-09 07:28] LABS: Creatinine Clr Calc Pharmacy 86.9 ml/min; Est GFR (African American) 92.2 ml/min; Est GFR (Non-African American) 79.6 ml/min
[2021-08-09] MEDS: ATORVASTATIN 40 MG TAB PO SCH (08:19)
[2021-08-09] MEDS: METOPROLOL SUCC 25MG EXT REL TAB PO SCH (08:19)
[2021-08-09] MEDS: ASPIRIN 81 MG ECTAB PO SCH (08:19)
[2021-08-09] MEDS: INSULIN HUMAN NPH SC SCH ×2 (08:19→17:28)
[2021-08-09] MEDS: lisinopril 5 MG TAB PO SCH (08:20)
[2021-08-09] MEDS: INSULIN ASPART PER UNIT SC SCH ×4 (08:24→21:23)
--- NOTE | 2021-08-09 14:19 | Hospitalist Progress Note ---
Date of Service August 09, 2021 Assessment & Plan (1) Diabetic ulcer of right heel: Plan: This is a 66-year-old male who has significant past medical history of insulin- dependent T2DM, diabetic neuropathy, CAD with history of CABG x4, HTN, HLD, alcohol abuse, history of R calcaneal osteomyelitis who presents to ED due to worsening right heel ulcer x1 month. Pt with hx of R heel OM in past requiring debridement and 6 weeks of IV antibiotics in 01/2021. Cultures at that time grew Staph aureus, prevotella melaninogenica and bivia. Wound culture in february after repeat debridement grew pseudomonas He stopped follow up with [facility] in May and subsequently heel ulcer gradually worsened. Diabetic ulcer of right heel osteomyelitis hx of Chronic R heel Osteomyelitis MRI of the Rt Ankle: IMPRESSION: 1. There is a large cutaneous defect/wound identified along the lateral aspect of the heel. Complex material within this wound may represent surgical packing and clinical correlation will be essential. 2. There is marked marrow edema throughout the calcaneus with erosive change along the dorsal and plantar aspect of the bone deep to the cutaneous defect. The appearance is typical for osteomyelitis and clinical correlation will be required. 3. There is evidence of significant surrounding cellulitis. No organized fluid collection is clearly seen to indicate abscess. 4. There is likely disruption of the lateral bundle of the plantar fascia at the calcaneal attachment. 5. There is marked thickening and tendinopathy of the Achilles tendon with partial thickness tearing. 6. There is a split tear of the peroneus brevis tendon with tenosynovitis of the peroneal tendons. Consult vascular per request of orthopedics Blood cultures ordered-pending for now continue IV antibiotics with vancomycin and zosyn Appreciate Ortho input and recommendation Denies any symptoms-right heel wound is pictured in the system Awaiting debridement tomorrow (2) T2DM (type 2 diabetes mellitus): Plan: T2DM with hyperglycemia a1c 6.7 02/2021, will repeat in a.m. On NPH N as outpt consult glycemic pharmacy, appreciate their assistance (3) CAD (coronary artery disease): Plan: CAD (coronary artery disease): H/O CABG in 2003 EKG ordered, no c/o CP or SOB ECHO 07/23/2019 which revealed EF 55 to 60% Continue ASA, atorvastatin, lisinopril and metoprolol Denies any cardiac symptoms (4) Hypertension: Plan: HTN pt bp elevated in ED, did not take home meds give lisinopril and metoprolol now and re evaluate Blood pressure remains on the upper side of normal at 142/83 Plan: Anemia Normocytic anemia Hemoglobin is 12.5 Likely secondary to chronic disease in setting of chronic osteomyelitis Hx of ETOH abuse drinks 4-6 beers nightly, last was 1 week ago DVT ppx: Lovenox, will need held prior to procedure Dispo: med tele, consider transition to med/surg in 1-2 days if remains stable PCP: Dr. Johnson FULL CODE Admission and Anticipated Discharge Date Admission Date: August 07, 2021 Subjective 08/08/2021 The patient was seen and examined in medical telemetry unit He denies any pain in the foot but has osteomyelitis involving the right heel bones #Peripheral neuropathy secondary to diabetes 08/09/2021 The patient was seen and examined in medical telemetry unit Remains asymptomatic and has been waiting for proposed surgery tomorrow Review of Systems Review of Systems: All systems reviewed and are unremarkable except as noted below Physical Exam Physical Exam: Lying in bed comfortably Constitutional: well developed and well nourished; not ill appearing Eyes: PERRL, conjunctivae normal, anicteric sclerae ENMT: external ear and nose normal, oropharynx normal Neck: trachea midline, no thyromegaly Respiratory: no respiratory distress Auscultation: lungs clear to auscultation bilaterally Cardiovascular: Rate/Rhythm: regular rate and regular rhythm; not tachycardic Heart Sounds: normal S1 and normal S2; no murmur Extremities: + edema (Trace edema on the right side) Gastrointestinal (Abdomen): Inspection/Auscultation: abdomen not distended Percussion/Palpation: abdomen soft; abdomen nontender Musculoskeletal: No acute arthritis in any joint. Right foot is bandaged Neurologic: Alert, awake and oriented x3 Results & Data Results & Data ([facility]) Vital Signs (Past 12 Hours) Vital Signs Temp Pulse Pulse Resp BP Pulse Ox 08/09/21 11:44 36.7 C 64 18 138/80 97 08/09/21 08:03 36.7 C 63 20 147/74 H 97 08/09/21 06:54 70 08/09/21 03:40 36.7 C 64 18 133/69 98 Laboratory Results [facility] 08/09/21 06:15 Creatinine 0.99 D Medications Administered Current Inpatient Medications Acetaminophen (Acetaminophen 325 Mg Tab) 650 mg PO Q4H PRN PRN Reason: Pain or Fever Stop: 09/06/21 19:52 Al Hydrox/Mg Hydrox/Simethicone (Aluminum/Magnesium Susp 30 Ml Udc) 15 ml PO Q4H PRN PRN Reason: Dyspepsia Stop: 09/06/21 19:52 Aspirin (Aspirin 81 Mg Ectab) 81 mg PO DAILY AKUA Stop: 09/07/21 08:59 Last Admin: 08/09/21 08:19 Dose: 81 mg Documented by: Atorvastatin Calcium (Atorvastatin 40 Mg Tab) 40 mg PO QAM AKUA Stop: 09/07/21 08:59 Last Admin: 08/09/21 08:19 Dose: 40 mg Documented by: Dextrose (Dextrose 50% 50 Ml Syringe) 25 - 50 ml IV UD PRN; Protocol PRN Reason: Hypoglycemia Protocol Stop: 09/06/21 19:52 Enoxaparin Sodium (Enoxaparin Inj 40 Mg/0.4 Ml Syr) 40 mg SQ Q24H AKUA Stop: 09/06/21 21:59 Last Admin: 08/08/21 21:20 Dose: 40 mg Documented by: Glucagon (Glucagon For Inj 1 Mg Vial) 1 mg SQ UD PRN; Protocol PRN Reason: Hypoglycemia Protocol Stop: 09/06/21 19:52 Glucose (Glucose 10 Tabs/Tube) 4 - 8 tabs PO UD PRN; Protocol PRN Reason: Hypoglycemia Protocol Stop: 09/06/21 19:52 Glucose (Glucose 40% Gel 15 Gm Tube) 15 - 30 gm PO UD PRN; Protocol PRN Reason: Hypoglycemia Protocol Stop: 09/06/21 19:52 Guaifenesin (Guaifenesin Sugar Free 200 Mg/10 Ml Udc) 200 mg PO Q6H PRN PRN Reason: Cough Stop: 09/06/21 21:22 Last Admin: 08/07/21 22:06 Dose: 200 mg Documented by: Piperacillin Sod/Tazobactam (Sod 3.375 gm/ Dextrose) 115 mls @ 28.75 mls/hr IV Q8H AKUA; Protocol Stop: 09/18/21 20:29 Last Admin: 08/09/21 12:14 Dose: 28.8 mls/hr Documented by: Vancomycin HCl 750 mg/ Sodium (Chloride) 265 mls @ 200 mls/hr IV Q12H ON LICENSE OF [facility]; Protocol Stop: 09/19/21 02:59 Last Infusion: 08/09/21 04:50 Dose: Infused Documented by: Insulin Aspart (Insulin Aspart Per Unit) 0 units SC ACHS ON LICENSE OF [facility]; Protocol Stop: 09/06/21 19:52 Last Admin: 08/09/21 12:15 Dose: 9 units Documented by: Insulin Human NPH (Insulin Human Nph) [facility] [place]; Protocol Stop: 09/07/21 08:59 Last Admin: 08/09/21 08:19 Dose: 15 units Documented by: Lisinopril (Lisinopril 5 Mg Tab) 5 mg PO [facility] Stop: 09/07/21 08:59 Last Admin: 08/09/21 08:20 Dose: 5 mg Documented by: Magnesium Hydroxide (Magnesium Hydroxide Susp 30 Ml Udc) 30 ml PO Q12H PRN PRN Reason: Constipation Stop: 09/06/21 19:52 Metoprolol Succinate (Metoprolol Succ 25mg Ext Rel Tab) 25 mg PO [facility] Stop: 09/07/21 08:59 Last Admin: 08/09/21 08:19 Dose: 25 mg Documented by: Miscellaneous (Carbohydrates For Hypoglycemia ) 15 - 30 gm PO UD PRN PRN Reason: Hypoglycemia Protocol Stop: 09/06/21 19:52 Miscellaneous Information (Pharmacy Glycemic Mgmt Consult) 1 ea N/A UD PRN; Protocol PRN Reason: Consult Stop: 09/06/21 19:52 Miscellaneous Information (Vancomycin Consult Active) 1 ea N/A UD PRN PRN Reason: Consult Stop: 09/06/21 19:52 Miscellaneous Information (Piperacill/Tazobac Consult Active) 1 ea N/A UD PRN PRN Reason: Consult Stop: 09/06/21 19:52 Ondansetron HCl (Ondansetron Inj 2 Mg/Ml 2 Ml Vial) 4 mg IV Q6H PRN PRN Reason: Nausea Stop: 09/06/21 19:52 Polyethylene Glycol (Polyethylene (Miralax) 17 Gm Pack) 17 gm PO DAILY PRN PRN Reason: Constipation Stop: 09/06/21 19:52 (1) Diabetic ulcer of right heel Diabetes mellitus type: other specified (including TEVIN) Non-pressure ulcer stage: unspecified non-pressure ulcer stage Qualified Code(s): E13.621 - Other specified diabetes mellitus with foot ulcer; L97.419 - Non-pressure chronic ulcer of right heel and midfoot with unspecified severity (2) CAD (coronary artery disease) Coronary Disease-Associated Artery/Lesion type: [place] artery [place] vs. transplanted heart: [place] heart Associated angina: without angina Qualified Code(s): I25.10 - Atherosclerotic heart disease of [place] coronary artery without angina pectoris
[2021-08-09] MEDS ORDERED: VANCOMYCIN TROUGH ONE (14:30)
--- NOTE | 2021-08-09 15:31 | Anesthesiology Consultation ---
Date of Service August 09, 2021 Assessment & Plan (1) Encounter for pre-operative examination: Chart Review Chart Review: administrative assistant data entry initiated History Surgery Operation Date: 08/10/21 14:15 Proposed Procedures p Right Irrigation and Debridement Heel Ulcer with Calcaneal Curettage, - Marcos Duncan DO s Possible Calcaneal Osteotomy - Marcos Duncan DO Height/Weight Height: 5 ft 11 in Weight: 93.5 kg Allergies Allergy/AdvReac Type Severity Reaction Status Date / Time No Known Allergies Allergy Verified 08/07/21 14:57 Medications Home Medications Medication Instructions Recorded Confirmed Last Taken aspirin 81 mg tablet,delayed 81 mg PO DAILY #30 tab 02/07/20 08/07/21 03/01/21 06:00 release atorvastatin 40 mg tablet 40 mg PO QAM #30 tab 02/07/20 08/07/21 03/01/21 06:00 lisinopril 5 mg tablet (Zestril) 5 mg PO QAM #30 tab 02/07/20 08/07/21 03/01/21 06:00 metoprolol succinate 25 mg 25 mg PO QAM 01/10/21 08/07/21 03/01/21 06:00 tablet,extended release 24 hr insulin NPH isoph U-100 human 100 20 unit SUBCUT BID 08/07/21 08/07/21 Unknown unit/mL subcutaneous suspension (Novolin N NPH U-100 Insulin isophane) Active Medications Generic Name Dose Route Start Last Admin Trade Name Freq PRN Reason Stop Dose Admin Aspirin 81 mg 08/08/21 09:00 08/09/21 08:19 Aspirin 81 Mg Ectab PO 09/07/21 08:59 81 mg DAILY AKUA Administration Atorvastatin Calcium 40 mg 08/08/21 09:00 08/09/21 08:19 Atorvastatin 40 Mg Tab PO 09/07/21 08:59 40 mg QAM AKUA Administration Enoxaparin Sodium 40 mg 08/07/21 22:00 08/08/21 21:20 Enoxaparin Inj 40 Mg/0.4 Ml Syr SQ 09/06/21 21:59 40 mg Q24H AKUA Administration Guaifenesin 200 mg 08/07/21 21:23 08/07/21 22:06 Guaifenesin Sugar Free 200 Mg/10 Ml Udc PO 09/06/21 21:22 200 mg Q6H PRN Administration Cough Piperacillin Sod/Tazobactam 115 mls @ 28.75 mls/hr 08/07/21 20:30 08/09/21 12:14 Sod 3.375 gm/ Dextrose IV 09/18/21 20:29 28.8 mls/hr Q8H AKUA Administration Protocol Insulin Aspart 0 units 08/07/21 19:53 08/09/21 12:15 Insulin Aspart Per Unit SC 09/06/21 19:52 9 units ACHS AKUA Administration Protocol Insulin Human NPH 15 units 08/08/21 17:00 08/09/21 08:19 Insulin Human Nph SC 09/07/21 08:59 15 units BIDM AKUA Administration Protocol Lisinopril 5 mg 08/08/21 09:00 08/09/21 08:20 Lisinopril 5 Mg Tab PO 09/07/21 08:59 5 mg QAM AKUA Administration Metoprolol Succinate 25 mg 08/08/21 09:00 08/09/21 08:19 Metoprolol Succ 25mg Ext Rel Tab PO 09/07/21 08:59 25 mg QAM AKUA Administration Past Medical History Medical History CAD (coronary artery disease) CABG x3 (2003) Chronic anemia Diabetes mellitus, type 2 IDDM Diabetic ulcer of right heel Hyperlipidemia Hypertension Myocardial Infarction 2004 Neuropathy Osteomyelitis Past Family History Family History Father Multiple myeloma Other Diabetes No family history of adverse response to anesthesia Past Surgical History Surgical History History of coronary artery bypass graft CABG x3 (2003) History of foot surgery Surgical debridement to R heel History of tooth extraction History of vasectomy S/P PICC central line placement Right arm (getting IV abx) Social History Smoking Status: Never smoker Hx Alcohol Use: Yes Alcohol type: beer alcohol intake frequency: a few times a week Alcohol Intake Frequency Comment: 3-4 beers QOD Hx Substance Use: No substance use type: does not use Physical Exam Vital Signs Last Vital Signs Temp 97.7 F 08/09/21 14:54 Pulse 63 08/09/21 14:54 Resp 20 08/09/21 14:54 BP 125/75 08/09/21 14:54 Pulse Ox 97 08/09/21 14:54 Testing Laboratory Results 08/08/21 06:59 08/09/21 06:15 Hemoglobin A1c 7.8 % (4.5-5.6) H 08/08/21 06:59 08/07/21 15:15 Aerobic Blood Culture - Preliminary Blood No growth in Aerobic bottle after 24 hours. Anaerobic Blood Culture - Preliminary No growth in Anaerobic bottle after 24 hours. 08/07/21 15:15 Aerobic Blood Culture - Preliminary Blood No growth in Aerobic bottle after 24 hours. Anaerobic Blood Culture - Preliminary No growth in Anaerobic bottle after 24 hours. 08/09/21 08/09/21 11:34 07:34 POC Glucose 202 H 119 H Laboratory Tests 08/07/21 13:30 SARS-CoV-2, RNA, NAAT NEGATIVE Electrocardiogram Date: 08/08/21 Normal sinus rhythm, rate 70 bpm Cannot rule out Inferior infarct Abnormal ECG When compared with ECG of 10-JAN-2021 15:32, No significant change was found Confirmed by Jack Bradford ([id number]) on 08/08/2021 11:37:18 AM Chest X-Ray Date: 08/08/21 FINDINGS: No pneumothorax. No pleural effusions. There are low lung volumes. The heart is borderline enlarged. This remains unchanged. There are poststernotomy changes. No new focal lung consolidations to suggest pneumonia. No evidence for pulmonary edema. IMPRESSION: No focal lung consolidations to suggest pneumonia. Echocardiogram Date: 05/23/20 LV systolic function is normal No regional wall motion abnormalities noted Mild concentric LVH EF 55-60% No valvular vegetations identified
[2021-08-09] MEDS: VANCOMYCIN HCL 1,000 MG in SODIUM CHLORIDE 0.9% 250 ML IV SCH (15:58)
[2021-08-09] MEDS: ENOXAPARIN INJ 40 MG/0.4 ML SYR SQ SCH (21:22)
[2021-08-10] MEDS: VANCOMYCIN HCL 1,000 MG in SODIUM CHLORIDE 0.9% 250 ML IV SCH ×4 (00:22→23:45)
[2021-08-10] MEDS: PIPERACILLIN/TAZOBACTAM 3.375 GM in DEXTROSE 5% 100 ML IV SCH ×3 (04:43→19:41)
[2021-08-10 07:05] LABS: Creatinine Clr Calc Pharmacy 80.4 ml/min; Est GFR (Non-African American) 72.5 ml/min
--- NOTE | 2021-08-10 07:33 | Pharmacy Report ---
Pharmacy Vanc AUC Short Note - Date of Service August 10, 2021 - Assessment & Plan Assessment * Mr Jean is a 66 year old M receiving Vancomycin and Zosyn for treatment of diabetic foot ulcer and possible osteomyelitis. * MRI of R foot is concerning for osteomyelitis. Tentative plan for irrigation and debridement later today. * Afebrile and without leukocytosis. Renal fxn has improved since admission. Will continue to follow closely. * Blood cultures remain negative to date. * Trough level obtained yesterday afternoon: 8.0 mcg/mL, indicating subtherapeutic vancomycin dosing Plan Vancomycin * AUC/BRUCE is the preferred PK/PD target for vancomycin * AUC guided dosing is effective and associated with decreased risk of nephrotoxicity compared to traditional trough targets * Trough level of 8.0 mcg/mL is not expected to produce target AUC/BRUCE levels. * Increase to Vanc 1000mg IV q8h , which is predicted to achieve target AUC/BRUCE of 400-600 mg/L.hr and may be associated with a 16% risk of nephrotoxicity * Anticipate that we may need to reduce dose slightly, depending on SCr trend. Will monitor renal function closely. * Will check another trough level in a couple of days, depending on renal function and patient's admission status. Zosyn * 4.5 g IV x 1 followed by 3.375 g IV every 8 hours Pharmacy will continue to follow and will adjust dose/frequency as necessary. Thank you.
[2021-08-10] MEDS ORDERED: INSULIN HUMAN NPH SC ONE (08:00)
--- NOTE | 2021-08-10 08:20 | Pharmacy Report ---
Pharmacy Glycemic Short Note 2 - Date of Service August 10, 2021 - Glycemic Short BSG Results (Last 24 hours): 08/09/21 08/09/21 08/09/21 11:34 16:10 20:04 POC Glucose 202 H 121 H 198 H 08/10/21 07:44 POC Glucose 136 H OUTPATIENT ANTIDIABETIC REGIMEN: * NPH 20 units SC BID * HbA1c: 7.8% (08/08/21) ASSESSMENT: 08/10/21: * Pt is going to the OR today for I&D, possible osteotomy R heel. * NPH dose reduced this morning while pt is NPO. * Will aim for tight glycemic control post-op to facilitate wound/infection healing. 08/08 * 66 yo M admitted secondary to diabetic foot ulcer and possible osteomyelitis. Pharmacy has been consulted to assist with inpatient glycemic management. Patient is ordered a T2DM diet for now. Unsure if there are plans for surgery at this time. * Admission BSG was 143 mg/dL last evening. Patient received 10 units of NPH and 5 units of Novolog at that time. * Fasting BSG was 156 mg/dL this AM. Will start NPH at 75% of home dose. * Lunch BSG did increase to 180 mg/dL at lunch today so tightened carb ratio slightly from admission. Targeting a goal of 110-140 mg/dL to promote wound healing and help prevent infection. PLAN FOR INPATIENT GLYCEMIC CONTROL: * Basal insulin * NPH 10 units SC x 1 this morning, then resume: * NPH 15 units SC BIDM * Bolus insulin * NovoLog per scale ACHS or Q6hrs while NPO * Goal Range: Low 110 mg/dL - High 140 mg/dL * Correction Factor: 25 mg/dL/unit * Nutritional / Prandial insulin per carb ratio of 1 unit per 8 grams CHO consumed PLAN FOR DISCHARGE: * A1c: 7.8% * This indicates reasonable, but slightly suboptimal glycemic control in a 66yo patient. Would prefer A1c closer to 7%, especially in the setting of recurrent infections and now post-operatively. * Pt would likely benefit from slight increase in insulin dosing and prompt f/u with outpt provider to work toward optimizing A1c.
[2021-08-10] MEDS: INSULIN ASPART PER UNIT SC SCH ×4 (08:45→20:14)
[2021-08-10] MEDS: ASPIRIN 81 MG ECTAB PO SCH (08:46)
[2021-08-10] MEDS: ATORVASTATIN 40 MG TAB PO SCH (08:47)
[2021-08-10] MEDS: lisinopril 5 MG TAB PO SCH (08:47)
[2021-08-10] MEDS: METOPROLOL SUCC 25MG EXT REL TAB PO SCH (08:47)
--- NOTE | 2021-08-10 14:09 | History & Physical Bridge Note ---
Date of Service August 10, 2021 History & Physical Bridge Note I have examined the patient, reviewed the History & Physical and in the interval since the performance of the History & Physical I have noted the following changes of clinical significance: no changes noted
[2021-08-10] MEDS ORDERED: fentaNYL citrate 100 MCG/2 ML VIAL ONE (15:03)
[2021-08-10] MEDS ORDERED: MIDAZOLAM HCL 1 MG/ML 2ML VIAL ONE (15:03)
[2021-08-10] MEDS ORDERED: PROPOFOL IV EMULSION 10 MG/ML 100 ML VIAL IV ONE (15:03)
[2021-08-10] MEDS ORDERED: VANCOMYCIN HCL 1000MG/20ML VIAL ONE (15:11)
[2021-08-10] MEDS ORDERED: GENTAMICIN SULFATE 40 MG/ML 2 ML VIAL ONE (15:11)
[2021-08-10] MEDS ORDERED: ceFAZolin 330 MG/ML 1 GM VIAL ONE (15:11)
[2021-08-10] MEDS ORDERED: BUPIVACAINE 0.5 % 5 MG/1 ML MPF 30ML VIAL ONE (15:11)
[2021-08-10] MEDS ORDERED: ONDANSETRON INJ 2 MG/ML 2 ML VIAL ONE (16:41)
--- NOTE | 2021-08-10 16:54 | Post Operative Brief Note ---
Immediate Post Op Note v1 Date of Surgery August 10, 2021 Pre & Post Diagnosis Operation Date: 08/10/21 14:15 Pre-Op Diagnosis: Chronic recurrent calcaneal osteomyelitis of right foot, diabetic neuropathic ulcer right lateral heel 3.4 cm x 1.4 cm x 2.8 cm deep Post-Op Diagnosis: Chronic recurrent calcaneal osteomyelitis of right foot, diabetic neuropathic ulcer right lateral heel 3.4 cm x 1.4 cm x 2.8 cm deep, attritional tear Achilles tendon insertion I identified the patient and participated in the time-out.: Yes Procedure Operation Date: 08/10/21 14:15 Actual Procedures p Right heel irrigation and Debridement diabetic neuropathic ulcer including skin, dermis, subcutaneous tissue, fascia and periosteum, partial Calcaneal resection with curettage, debridement Achilles tendon tear, partial closure lateral heel wound measuring 3.4cm x 1.4cm x 2.8cm deep, application antibiotic Stimulan beads- Marcos Duncan DO Surgeon Marcos Duncan DO Emblem Fuser Tender Dameon Williamson PA-C Estimated Blood Loss 2 Findings Consistent with Post-Op Diagnosis Specimens Aerobic, anaerobic, Gram stain calcaneal bone Calcaneal bone for specimen to pathology right foot Anesthesia Type General Regional Complications none Disposition Accompanied Patient To Recovery: No
--- NOTE | 2021-08-10 17:18 | Hospitalist Progress Note ---
Date of Service August 10, 2021 Assessment & Plan (1) Diabetic ulcer of right heel: Plan: This is a 66-year-old male who has significant past medical history of insulin- dependent T2DM, diabetic neuropathy, CAD with history of CABG x4, HTN, HLD, alcohol abuse, history of R calcaneal osteomyelitis who presents to ED due to worsening right heel ulcer x1 month. Pt with hx of R heel OM in past requiring debridement and 6 weeks of IV antibiotics in 01/2021. Cultures at that time grew Staph aureus, prevotella melaninogenica and bivia. Wound culture in february after repeat debridement grew pseudomonas He stopped follow up with [facility] in May and subsequently heel ulcer gradually worsened. Diabetic ulcer of right heel osteomyelitis hx of Chronic R heel Osteomyelitis MRI of the Rt Ankle: IMPRESSION: 1. There is a large cutaneous defect/wound identified along the lateral aspect of the heel. Complex material within this wound may represent surgical packing and clinical correlation will be essential. 2. There is marked marrow edema throughout the calcaneus with erosive change along the dorsal and plantar aspect of the bone deep to the cutaneous defect. The appearance is typical for osteomyelitis and clinical correlation will be required. 3. There is evidence of significant surrounding cellulitis. No organized fluid collection is clearly seen to indicate abscess. 4. There is likely disruption of the lateral bundle of the plantar fascia at the calcaneal attachment. 5. There is marked thickening and tendinopathy of the Achilles tendon with partial thickness tearing. 6. There is a split tear of the peroneus brevis tendon with tenosynovitis of the peroneal tendons. Consult vascular per request of orthopedics Blood cultures ordered-pending for now continue IV antibiotics with vancomycin and zosyn Appreciate Ortho input and recommendation Denies any symptoms-right heel wound is pictured in the system Will have right heel debridement today (2) T2DM (type 2 diabetes mellitus): Plan: T2DM with hyperglycemia a1c 6.7 02/2021, will repeat in a.m. On NPH N as outpt consult glycemic pharmacy, appreciate their assistance (3) CAD (coronary artery disease): Plan: CAD (coronary artery disease): H/O CABG in 2003 EKG ordered, no c/o CP or SOB ECHO 07/23/2019 which revealed EF 55 to 60% Continue ASA, atorvastatin, lisinopril and metoprolol Denies any cardiac symptoms (4) Hypertension: Plan: HTN pt bp elevated in ED, did not take home meds give lisinopril and metoprolol now and re evaluate Blood pressure remains on the upper side of normal at 142/83 Plan: Anemia Normocytic anemia Hemoglobin is 12.5 Likely secondary to chronic disease in setting of chronic osteomyelitis Hx of ETOH abuse drinks 4-6 beers nightly, last was 1 week ago DVT ppx: Lovenox, will need held prior to procedure Dispo: med tele, consider transition to med/surg in 1-2 days if remains stable PCP: Dr. Johnson FULL CODE Admission and Anticipated Discharge Date Admission Date: August 07, 2021 Subjective 08/08/2021 The patient was seen and examined in medical telemetry unit He denies any pain in the foot but has osteomyelitis involving the right heel bones #Peripheral neuropathy secondary to diabetes 08/09/2021 The patient was seen and examined in medical telemetry unit Remains asymptomatic and has been waiting for proposed surgery tomorrow 08/10/2021 The patient was seen and examined in medical telemetry unit He remains stable and does not have any symptoms He will have right heel debridement surgery this afternoon Review of Systems Review of Systems: All systems reviewed and are unremarkable except as noted below Physical Exam Physical Exam: Lying in bed comfortably Constitutional: well developed and well nourished; not ill appearing Eyes: PERRL, conjunctivae normal, anicteric sclerae ENMT: external ear and nose normal, oropharynx normal Neck: trachea midline, no thyromegaly Respiratory: no respiratory distress Auscultation: lungs clear to auscultation bilaterally Cardiovascular: Rate/Rhythm: regular rate and regular rhythm; not tachycardic Heart Sounds: normal S1 and normal S2; no murmur Extremities: + edema (Trace edema on the right side) Gastrointestinal (Abdomen): Inspection/Auscultation: abdomen not distended Percussion/Palpation: abdomen soft; abdomen nontender Neurologic: Alert, awake and oriented x3. No focal sensory or motor deficit appreciated Results & Data Results & Data ([facility]) Vital Signs (Past 12 Hours) Vital Signs Temp Pulse Pulse Pulse Resp BP BP 08/10/21 17:13 139/66 08/10/21 17:05 36.4 C L 56 L 12 90/45 L 08/10/21 16:55 56 L 18 95/57 L 08/10/21 16:47 36.1 C L 52 L 12 84/44 L 08/10/21 13:37 37.1 C 64 20 176/89 H 08/10/21 11:09 36.3 C L 66 20 155/87 H 08/10/21 08:08 36.6 C 64 18 157/84 H 08/10/21 07:04 64 Pulse Ox 08/10/21 17:13 08/10/21 17:05 99 08/10/21 16:55 99 08/10/21 16:47 100 08/10/21 13:37 100 08/10/21 11:09 100 08/10/21 08:08 96 08/10/21 07:04 Laboratory Results BMP 08/10/21 06:07 Creatinine 1.07 Medications Administered Current Inpatient Medications Acetaminophen (Acetaminophen 325 Mg Tab) 650 mg PO Q4H PRN PRN Reason: Pain or Fever Stop: 09/06/21 19:52 Al Hydrox/Mg Hydrox/Simethicone (Aluminum/Magnesium Susp 30 Ml Udc) 15 ml PO Q4H PRN PRN Reason: Dyspepsia Stop: 09/06/21 19:52 Aspirin (Aspirin 81 Mg Ectab) 81 mg PO DAILY AKUA Stop: 09/07/21 08:59 Last Admin: 08/10/21 08:46 Dose: Not Given Documented by: Atorvastatin Calcium (Atorvastatin 40 Mg Tab) 40 mg PO QAM [facility] Stop: 09/07/21 08:59 Last Admin: 08/10/21 08:47 Dose: 40 mg Documented by: Dextrose (Dextrose 50% 50 Ml Syringe) 25 - 50 ml IV UD PRN; Protocol PRN Reason: Hypoglycemia Protocol Stop: 09/06/21 19:52 Enoxaparin Sodium (Enoxaparin Inj 40 Mg/0.4 Ml Syr) 40 mg SQ Q24H [facility] Stop: 09/06/21 21:59 Last Admin: 08/09/21 21:22 Dose: 40 mg Documented by: Glucagon (Glucagon For Inj 1 Mg Vial) 1 mg SQ UD PRN; Protocol PRN Reason: Hypoglycemia Protocol Stop: 09/06/21 19:52 Glucose (Glucose 10 Tabs/Tube) 4 - 8 tabs PO UD PRN; Protocol PRN Reason: Hypoglycemia Protocol Stop: 09/06/21 19:52 Glucose (Glucose 40% Gel 15 Gm Tube) 15 - 30 gm PO UD PRN; Protocol PRN Reason: Hypoglycemia Protocol Stop: 09/06/21 19:52 Guaifenesin (Guaifenesin Sugar Free 200 Mg/10 Ml Udc) 200 mg PO Q6H PRN PRN Reason: Cough Stop: 09/06/21 21:22 Last Admin: 08/07/21 22:06 Dose: 200 mg Documented by: Piperacillin Sod/Tazobactam (Sod 3.375 gm/ Dextrose) 115 mls @ 28.75 mls/hr IV Q8H [facility]; Protocol Stop: 09/18/21 20:29 Last Infusion: 08/10/21 16:51 Dose: Infused Documented by: Vancomycin HCl 1,000 mg/ (Sodium Chloride) 270 mls @ 200 mls/hr IV Q8H [facility]; Protocol Stop: 09/20/21 15:59 Last Infusion: 08/10/21 10:07 Dose: Infused Documented by: Insulin Aspart (Insulin Aspart Per Unit) 0 units SC [facility]; Protocol Stop: 09/06/21 19:52 Last Admin: 08/10/21 11:55 Dose: Not Given Documented by: Insulin Human NPH (Insulin Human Nph) 15 units SC BIDM [facility]; Protocol Stop: 09/07/21 08:59 Last Admin: 08/09/21 17:28 Dose: 15 units Documented by: Lisinopril (Lisinopril 5 Mg Tab) 5 mg PO [facility] Stop: 09/07/21 08:59 Last Admin: 08/10/21 08:47 Dose: 5 mg Documented by: Magnesium Hydroxide (Magnesium Hydroxide Susp 30 Ml Udc) 30 ml PO Q12H PRN PRN Reason: Constipation Stop: 09/06/21 19:52 Metoprolol Succinate (Metoprolol Succ 25mg Ext Rel Tab) 25 mg PO [facility] Stop: 09/07/21 08:59 Last Admin: 08/10/21 08:47 Dose: 25 mg Documented by: Miscellaneous (Carbohydrates For Hypoglycemia ) 15 - 30 gm PO UD PRN PRN Reason: Hypoglycemia Protocol Stop: 09/06/21 19:52 Miscellaneous Information (Pharmacy Glycemic Mgmt Consult) 1 ea N/A UD PRN; Pr otocol PRN Reason: Consult Stop: 09/06/21 19:52 Miscellaneous Information (Vancomycin Consult Active) 1 ea N/A UD PRN PRN Reason: Consult Stop: 09/06/21 19:52 Miscellaneous Information (Piperacill/Tazobac Consult Active) 1 ea N/A UD PRN PRN Reason: Consult Stop: 09/06/21 19:52 Ondansetron HCl (Ondansetron Inj 2 Mg/Ml 2 Ml Vial) 4 mg IV Q6H PRN PRN Reason: Nausea Stop: 09/06/21 19:52 Polyethylene Glycol (Polyethylene (Miralax) 17 Gm Pack) 17 gm PO DAILY PRN PRN Reason: Constipation Stop: 09/06/21 19:52 (1) Diabetic ulcer of right heel Diabetes mellitus type: other specified (including TEVIN) Non-pressure ulcer stage: unspecified non-pressure ulcer stage Qualified Code(s): E13.621 - Other specified diabetes mellitus with foot ulcer; L97.419 - Non-pressure chronic ulcer of right heel and midfoot with unspecified severity (2) CAD (coronary artery disease) Coronary Disease-Associated Artery/Lesion type: [place] artery [place] vs. transplanted heart: [place] heart Associated angina: without angina Qualified Code(s): I25.10 - Atherosclerotic heart disease of [place] coronary artery without angina pectoris
[2021-08-10] MEDS ORDERED: oxyCODONE HCL IR 5 MG TAB (IMMEDIATE RELEASE) PO PRN (17:28)
[2021-08-10] MEDS ORDERED: ONDANSETRON INJ 2 MG/ML 2 ML VIAL IV PRN (17:28)
[2021-08-10] MEDS ORDERED: ALUMINUM/MAGNESIUM SUSP 30 ML UDC PO PRN (17:28)
[2021-08-10] MEDS ORDERED: NALOXONE HCL 0.4 MG/1 ML VIAL/CARP IV PRN (17:28)
[2021-08-10] MEDS ORDERED: METOCLOPRAMIDE HCL INJ 5 MG/ML 2 ML VIAL IV PRN (17:28)
[2021-08-10] MEDS ORDERED: MAGNESIUM HYDROXIDE SUSP 30 ML UDC PO PRN (17:28)
[2021-08-10] MEDS ORDERED: HYDROmorphone INJ 0.5 MG/0.5 ML SYR IV PRN (17:28)
[2021-08-10] MEDS ORDERED: diphenhydrAMINE Capsule 25 MG CAP PO PRN (17:28)
[2021-08-10] MEDS ORDERED: bisacodyL 10 MG SUPP PR PRN (17:28)
[2021-08-10] MEDS ORDERED: SODIUM CHLORIDE 0.9% 1000ML 1,000 ML IV SCH (17:28)
--- NOTE | 2021-08-10 17:38 | Anesthesiology Progress Note ---
Date of Service August 10, 2021 Anesthesia Post Procedure Vital Signs Vital Signs: Temp Pulse Pulse Pulse Resp BP BP 08/10/21 17:13 139/66 08/10/21 17:05 97.5 F L 56 L 12 90/45 L 08/10/21 16:55 56 L 18 95/57 L 08/10/21 16:47 97.0 F L 52 L 12 84/44 L 08/10/21 13:37 98.8 F 64 20 176/89 H 08/10/21 11:09 97.3 F L 66 20 155/87 H 08/10/21 08:08 97.9 F 64 18 157/84 H 08/10/21 07:04 64 08/10/21 02:42 98.2 F 63 16 138/76 08/10/21 02:32 66 08/09/21 23:15 98.1 F 63 16 134/74 08/09/21 19:17 98.4 F 66 16 125/70 Pulse Ox 08/10/21 17:13 08/10/21 17:05 99 08/10/21 16:55 99 08/10/21 16:47 100 08/10/21 13:37 100 08/10/21 11:09 100 08/10/21 08:08 96 08/10/21 07:04 08/10/21 02:42 99 08/10/21 02:32 08/09/21 23:15 98 08/09/21 19:17 100 Pain Intensity Right Foot: Pain Intensity: 4 Transfer of Care Handoff Completed per policy Notes Mental Status: alert / awake / arousable and participated in evaluation Patient Amnestic to Procedure: Yes Nausea / Vomiting: adequately controlled Pain: adequately controlled Airway Patency, RR, SpO2: stable & adequate BP & HR: stable & adequate Hydration State: stable & adequate Anesthetic Complications: no major complications apparent and Pt Satisfied with anesthetic care
[2021-08-10] MEDS: INSULIN HUMAN NPH SC SCH (18:01)
[2021-08-10] MEDS: SENNA 8.6 MG TAB PO SCH (20:10)
[2021-08-10] MEDS: DOCUSATE SODIUM 100 MG CAP PO SCH (20:11)
[2021-08-10] MEDS: ENOXAPARIN INJ 40 MG/0.4 ML SYR SQ SCH (20:11)
--- NOTE | 2021-08-10 21:31 | Operative Report (OR) ---
DATE OF PROCEDURE: 08/10/2021. PREOPERATIVE DIAGNOSES: 1. Right chronic recurrent calcaneal osteomyelitis. 2. Diabetic neuropathic ulcer, right lateral heel, 3.4 cm x 1.4 cm x 2.8 cm deep. POSTOPERATIVE DIAGNOSES: 1. Chronic recurrent calcaneal osteomyelitis of the right foot. 2. Diabetic neuropathic ulcer, right lateral heel, 3.4 cm x 1.4 cm x 2.8 cm deep. 3. Attritional tear of the lateral Achilles tendon insertion. PROCEDURES: 1. Right heel irrigation and debridement of diabetic neuropathic ulcer including skin, dermis, subcu taneous tissue, fascia and periosteum. 2. Partial calcaneal resection with curettage. 3. Debridement of distal lateral Achilles tendon tear. 4. Partial closure of lateral heel wound measuring 3.4 cm x 1.4 cm x 2.8 cm deep. 5. Application of antibiotic Stimulan beads to the right heel. SURGEON: Marcos Duncan DO. FORGING DIE FINISHER: Dameon Williamson PA-C who was present for patient positioning, sterile prep and drape, management of retractors and instruments. He was present through the critical portions of the case i ncluding wound closure, application of sterile dressing and transport of the patient to recovery. ANESTHESIA: General, regional. SPECIMENS: 1. Aerobic, anaerobic, Gram stain - calcaneal bone. 2. Calcaneal bone for pathological specimen. DRAINS: None. COMPLICATIONS: None. BLOOD LOSS: 2 mL. PERTINENT HISTORY: This is a 66-year-old gentleman who had a history of calcaneal osteomyelitis, pre viously treated over a year ago; however, he had a recurrence and presented to [facility]. He was seen in consultation and noted to have a large ulceration in the posterolateral aspect of his heel. Radiographs and MRI demonstrate chronic osteomyelitis in the right heel and involvemen t of the calcaneal bone. The patient was then scheduled for surgery as indicated. DESCRIPTION OF PROCEDURE: The patient was taken to the operative suite and placed supine on the oper ating table. After review of consent and identification of proper site, the patient was anesthetized , LMA was placed. Right lower extremity was sterilely prepped and draped in the usual fashion, eleva david and partially exsanguinated from the mid calf proximally. The tourniquet was elevated to 325 mmH g. Next, a 15 blade scalpel was used to debride the right heel ulcer measuring 3.4 cm x 1.4 cm x 2.8 cm deep back to healthy-appearing tissue. The necrotic-appearing skin, dermis and subcutaneous tissue w ere sharply excised. Dissection was also performed of the subcutaneous tissue, fascia and down to the level of the periosteum. Any fibrinous exudate and damaged tissue and bone was then sharply excised . Anaerobic, aerobic and Gram stain specimens were obtained from the calcaneal bone and were passed off as specimen. Next, the [employer] retractors were placed in the incision, revealed the softened bone of the calcane us. The outer cortex remained intact with the exception of a large cavity now evident. Next, a 10 m m osteotome and mallet was then used to resect any softened or chronically necrotic bone. A specimen of this bone was then sent for pathological assessment. Next, a large curette was then used to cure ttage the remaining calcaneus of any bone, which I suspected for harboring bacteria due to obvious so ftening. Once the loose bony debris and fibrinous exudate was then resected, there was noted to be a large cavity within the calcaneus. The remainder appeared to be healthy. Next, pulsatile lavage wi th Ancef additive was then used to lavage the heel. This was performed with approximately 3 liters u ntil clear. Next, there appeared to be an attritional rupture of the lateral distal Achilles as per findings of t MRI. Next, the 15 blade scalpel was used to sharply debride the distal torn fibers of the [place] s tendon back to a more normal-appearing Achilles tendon tissue. Next, the site was copiously irriga david with sterile saline, and top gloves and top sheet were changed, and the Stimulan beads were creat ed 5 mL with 1 gram of vancomycin and another gram of gentamicin. These were then placed into the ca vity of the calcaneus and the tissue flap was then gently mobilized with tenotomy scissors and closed over the beads with interrupted 2-0 nylon sutures. Acticoat Flex was then stapled over the suture l ine, which was loosely approximated to encourage discharge and drainage as necessary. Next, a steril e compressive dressing was applied, overwrapped with ABD and Panfilo wrap. The tourniquet was released. The patient was awakened and taken to recovery in stable condition. Job ID: [id number]
[2021-08-11] MEDS: PIPERACILLIN/TAZOBACTAM 3.375 GM in DEXTROSE 5% 100 ML IV SCH ×3 (04:11→20:39)
[2021-08-11] MEDS: DOCUSATE SODIUM 100 MG CAP PO SCH ×2 (07:27→20:39)
[2021-08-11] MEDS: ASPIRIN 81 MG ECTAB PO SCH (07:27)
[2021-08-11] MEDS: MULTIVITAMIN TAB PO SCH (07:27)
[2021-08-11] MEDS: VANCOMYCIN HCL 1,000 MG in SODIUM CHLORIDE 0.9% 250 ML IV SCH ×2 (07:34→16:43)
[2021-08-11] MEDS: lisinopril 5 MG TAB PO SCH (08:29)
[2021-08-11] MEDS: METOPROLOL SUCC 25MG EXT REL TAB PO SCH (08:29)
[2021-08-11] MEDS: ATORVASTATIN 40 MG TAB PO SCH (08:30)
[2021-08-11] MEDS: INSULIN HUMAN NPH SC SCH ×2 (09:09→17:00)
[2021-08-11 09:14] LABS: Basophils # (auto) 0.03 K/uL (0-0.2); Basophils % (auto) 0.5 %; Eosinophils # (auto) 0.42 K/uL (0-0.5); Eosinophils % (auto) 7.3 %; Hematocrit (blood only) 30.7 % (42-52); Hemoglobin 10.3 g/dL (14.0-18.0); Immature Granulocytes # (auto) 0.03 K/uL (0.00-0.02); Immature Granulocytes % (auto) 0.5 %; Lymphocytes # (auto) 1.23 K/uL (1.2-3.4); Lymphocytes % (auto) 21.4 %; Mean Corpuscular Hemoglobin 27.6 pg (25-34); Mean Corpuscular Hgb Conc 33.6 g/dL (32-36); Mean Corpuscular Volume 82.3 fL (80-100); Monocytes # (auto) 0.41 K/uL (0.11-0.59); Monocytes % (auto) 7.1 %; Neutrophils # (auto) 3.64 K/uL (1.4-6.5); Neutrophils % (auto) 63.2 %; Platelet Count 174 K/uL (130-400); RDW Coefficient of Variation 12.2 % (11.5-14.5); RDW Standard Deviation 36.8 fL (36.4-46.3); Red Blood Count 3.73 M/uL (4.7-6.1); White Blood Count 5.76 K/uL (4.8-10.8)
[2021-08-11] MEDS: INSULIN ASPART PER UNIT SC SCH ×4 (09:14→20:44)
--- NOTE | 2021-08-11 09:39 | Orthopedic Progress Note ---
Date of Service August 11, 2021 Assessment & Plan (1) Diabetic ulcer of right heel with necrosis of bone: Plan: POD #1 s/p 1. Right heel irrigation and debridement of diabetic neuropathic ulcer including skin, dermis, subcutaneous tissue, fascia and periosteum. 2. Partial calcaneal resection with curettage. 3. Debridement of distal lateral Achilles tendon tear. 4. Partial closure of lateral heel wound measuring 3.4 cm x 1.4 cm x 2.8 cm deep. 5. Application of antibiotic Stimulan beads to the right heel Dressing kept in place today. An ABD pad and an Panfilo bandage were used to reinforce the heel. Nonweightbearing on right lower extremity all times. Waffle boot for the right lower extremity at avoid pressure while the patient is lying in bed. Awaiting intraoperative cultures. Continue IV antibiotics. Discharge planninguncertain at this time. I discussed at least 6 weeks of antibiotics upon discharge. Admission and Anticipated Discharge Date Admission Date: August 07, 2021 Subjective Doing well. States he has some bleeding coming through his dressing. No pain in the heel. No new complaints today. Physical Exam Constitutional: WD/WN, vitals as above Musculoskeletal: Right foot: Dressing clean/dry/intact. Very little blood at the posterior heel through the Panfilo bandage. Toes are mobile. Results & Data ([facility]) Vital Signs (Past 12 Hours) Vital Signs Temp Pulse Pulse Resp BP BP Pulse Ox 08/11/21 08:05 36.6 C 72 20 149/86 H 96 08/11/21 07:15 78 08/11/21 04:20 36.6 C 67 18 132/73 98 08/10/21 22:55 36.7 C 66 18 107/60 99 08/10/21 22:19 68
[2021-08-11 09:56] LABS: BUN Creatinine Ratio 15.9 (10-20); Calcium 8.5 mg/dl (8.5-10.1); Creatinine Clr Calc Pharmacy 64.7 ml/min; Est GFR (African American) 65.2 ml/min; Est GFR (Non-African American) 56.2 ml/min; Potassium 4.5 mmol/L (3.5-5.1)
--- NOTE | 2021-08-11 13:36 | Hospitalist Progress Note ---
Date of Service August 11, 2021 Assessment & Plan (1) Diabetic ulcer of right heel: Plan: This is a 66-year-old male who has significant past medical history of insulin- dependent T2DM, diabetic neuropathy, CAD with history of CABG x4, HTN, HLD, alcohol abuse, history of R calcaneal osteomyelitis who presents to ED due to worsening right heel ulcer x1 month. Pt with hx of R heel OM in past requiring debridement and 6 weeks of IV antibiotics in 01/2021. Cultures at that time grew Staph aureus, prevotella melaninogenica and bivia. Wound culture in february after repeat debridement grew pseudomonas He stopped follow up with [facility] in May and subsequently heel ulcer gradually worsened. Diabetic ulcer of right heel osteomyelitis hx of Chronic R heel Osteomyelitis MRI of the Rt Ankle: IMPRESSION: 1. There is a large cutaneous defect/wound identified along the lateral aspect of the heel. Complex material within this wound may represent surgical packing and clinical correlation will be essential. 2. There is marked marrow edema throughout the calcaneus with erosive change along the dorsal and plantar aspect of the bone deep to the cutaneous defect. The appearance is typical for osteomyelitis and clinical correlation will be required. 3. There is evidence of significant surrounding cellulitis. No organized fluid collection is clearly seen to indicate abscess. 4. There is likely disruption of the lateral bundle of the plantar fascia at the calcaneal attachment. 5. There is marked thickening and tendinopathy of the Achilles tendon with partial thickness tearing. 6. There is a split tear of the peroneus brevis tendon with tenosynovitis of the peroneal tendons. Consult vascular per request of orthopedics Blood cultures ordered-pending for now continue IV antibiotics with vancomycin and zosyn Appreciate Ortho input and recommendation Denies any symptoms-right heel wound is pictured in the system Status post right irrigation and debridement of heel ulcer with calcaneal curettaged on 08/10/2021 Continue management as per Ortho We will continue current antibiotics with vancomycin and Zosyn (2) T2DM (type 2 diabetes mellitus): Plan: T2DM with hyperglycemia a1c 6.7 02/2021, will repeat in a.m. On NPH N as outpt consult glycemic pharmacy, appreciate their assistance (3) CAD (coronary artery disease): Plan: CAD (coronary artery disease): H/O CABG in 2003 EKG ordered, no c/o CP or SOB ECHO 07/23/2019 which revealed EF 55 to 60% Continue ASA, atorvastatin, lisinopril and metoprolol Denies any cardiac symptoms (4) Hypertension: Plan: HTN pt bp elevated in ED, did not take home meds give lisinopril and metoprolol now and re evaluate Blood pressure remains on the upper side of normal at 142/83 Plan: Anemia Normocytic anemia Hemoglobin is 12.5 Likely secondary to chronic disease in setting of chronic osteomyelitis Hx of ETOH abuse drinks 4-6 beers nightly, last was 1 week ago DVT ppx: Lovenox, will need held prior to procedure Dispo: med tele, consider transition to med/surg in 1-2 days if remains stable PCP: Dr. Johnson FULL CODE Admission and Anticipated Discharge Date Admission Date: August 07, 2021 Subjective 08/08/2021 The patient was seen and examined in medical telemetry unit He denies any pain in the foot but has osteomyelitis involving the right heel bones #Peripheral neuropathy secondary to diabetes 08/09/2021 The patient was seen and examined in medical telemetry unit Remains asymptomatic and has been waiting for proposed surgery tomorrow 08/10/2021 The patient was seen and examined in medical telemetry unit He remains stable and does not have any symptoms He will have right heel debridement surgery this afternoon 08/11/2021 The patient was seen and examined in medical telemetry unit He is a status post right heel debridement and irrigation, POD #1 Has had some bleeding from the wound and that was rebandaged by Ortho Denies any pain due to diabetic neuropathy No fever and no chills and no nausea no vomiting Review of Systems Review of Systems: All systems reviewed and are unremarkable except as noted below Physical Exam Physical Exam: Lying in bed comfortably Constitutional: well developed and well nourished; not ill appearing Eyes: PERRL, conjunctivae normal, anicteric sclerae ENMT: external ear and nose normal, oropharynx normal Neck: trachea midline, no thyromegaly Respiratory: no respiratory distress Auscultation: lungs clear to auscultation bilaterally Cardiovascular: Rate/Rhythm: regular rate and regular rhythm; not tachycardic Heart Sounds: normal S1 and normal S2; no murmur Extremities: + edema (Trace edema on the right side) Gastrointestinal (Abdomen): Inspection/Auscultation: abdomen not distended Percussion/Palpation: abdomen soft; abdomen nontender Musculoskeletal: Left foot is bandaged Neurologic: Alert, awake and oriented x3 Results & Data Results & Data ([facility]) Vital Signs (Past 12 Hours) Vital Signs Temp Pulse Pulse Resp BP BP Pulse Ox 08/11/21 08:05 36.6 C 72 20 149/86 H 96 08/11/21 07:15 78 08/11/21 04:20 36.6 C 67 18 132/73 98 Laboratory Results Short CBC 08/11/21 Range/Units 08:50 WBC 5.76 (4.8-10.8) K/uL Hgb 10.3 L (14.0-18.0) g/dL Hct 30.7 L (42-52) % Plt Count 174 (130-400) K/uL BMP 08/11/21 08:50 Sodium 133 L Potassium 4.5 Chloride 102 Carbon Dioxide 27 BUN 21 Creatinine 1.32 Glucose 191 H Calcium 8.5 Medications Administered Current Inpatient Medications Acetaminophen (Acetaminophen 325 Mg Tab) 650 mg PO Q4H PRN PRN Reason: Pain or Fever Stop: 09/06/21 19:52 Al Hydrox/Mg Hydrox/Simethicone (Aluminum/Magnesium Susp 30 Ml Udc) 15 ml PO Q4H PRN PRN Reason: Dyspepsia Stop: 09/06/21 19:52 Al Hydrox/Mg Hydrox/Simethicone (Aluminum/Magnesium Susp 30 Ml Udc) 15 ml PO Q4H PRN PRN Reason: Heartburn Stop: 09/09/21 17:27 Aspirin (Aspirin 81 Mg Ectab) 81 mg PO DAILY [facility] Stop: 09/07/21 08:59 Last Admin: 08/11/21 07:27 Dose: 81 mg Documented by: Atorvastatin Calcium (Atorvastatin 40 Mg Tab) 40 mg PO QAM AKUA Stop: 09/07/21 08:59 Last Admin: 08/11/21 08:30 Dose: 40 mg Documented by: Bisacodyl (Bisacodyl 10 Mg Supp) 10 mg FL DAILY PRN PRN Reason: Constipation Stop: 09/09/21 17:27 Dextrose (Dextrose 50% 50 Ml Syringe) 25 - 50 ml IV UD PRN; Protocol PRN Reason: Hypoglycemia Protocol Stop: 09/06/21 19:52 Diphenhydramine HCl (Diphenhydramine Capsule 25 Mg Cap) 25 mg PO Q8H PRN PRN Reason: Itching Stop: 09/09/21 17:27 Docusate Sodium (Docusate Sodium 100 Mg Cap) 100 mg PO BID AKUA Stop: 09/09/21 20:59 Last Admin: 08/11/21 07:27 Dose: 100 mg Documented by: Enoxaparin Sodium (Enoxaparin Inj 40 Mg/0.4 Ml Syr) 40 mg SQ Q24H AKUA Stop: 09/06/21 21:59 Last Admin: 08/10/21 20:11 Dose: 40 mg Documented by: Glucagon (Glucagon For Inj 1 Mg Vial) 1 mg SQ UD PRN; Protocol PRN Reason: Hypoglycemia Protocol Stop: 09/06/21 19:52 Glucose (Glucose 10 Tabs/Tube) 4 - 8 tabs PO UD PRN; Protocol PRN Reason: Hypoglycemia Protocol Stop: 09/06/21 19:52 Glucose (Glucose 40% Gel 15 Gm Tube) 15 - 30 gm PO UD PRN; Protocol PRN Reason: Hypoglycemia Protocol Stop: 09/06/21 19:52 Guaifenesin (Guaifenesin Sugar Free 200 Mg/10 Ml Udc) 200 mg PO Q6H PRN PRN Reason: Cough Stop: 09/06/21 21:22 Last Admin: 08/07/21 22:06 Dose: 200 mg Documented by: Hydromorphone HCl (Hydromorphone Inj 0.5 Mg/0.5 Ml Syr) 0.5 mg IV Q3H PRN PRN Reason: Pain or Pre PT Stop: 08/24/21 17:27 Piperacillin Sod/Tazobactam (Sod 3.375 gm/ Dextrose) 115 mls @ 28.75 mls/hr IV Q8H AKUA; Protocol Stop: 09/18/21 20:29 Last Admin: 08/11/21 11:18 Dose: 28.8 mls/hr Documented by: Vancomycin HCl 1,000 mg/ (Sodium Chloride) 270 mls @ 200 mls/hr IV Q8H AKUA; Protocol Stop: 09/20/21 15:59 Last Infusion: 08/11/21 09:17 Dose: Infused Documented by: Insulin Aspart (Insulin Aspart Per Unit) 0 units SC ACHS AKUA; Protocol Stop: 09/06/21 19:52 Last Admin: 08/11/21 12:13 Dose: 9 units Documented by: Insulin Human NPH (Insulin Human Nph) 15 units SC BIDM [facility]; Protocol Stop: 09/07/21 08:59 Last Admin: 08/11/21 09:09 Dose: 15 units Documented by: Lisinopril (Lisinopril 5 Mg Tab) 5 mg PO [facility] Stop: 09/07/21 08:59 Last Admin: 08/11/21 08:29 Dose: 5 mg Documented by: Magnesium Hydroxide (Magnesium Hydroxide Susp 30 Ml Udc) 30 ml PO Q12H PRN PRN Reason: Constipation Stop: 09/06/21 19:52 Magnesium Hydroxide (Magnesium Hydroxide Susp 30 Ml Udc) 30 ml PO Q6H PRN PRN Reason: Constipation Stop: 09/09/21 17:27 Metoclopramide HCl (Metoclopramide Hcl Inj 5 Mg/Ml 2 Ml Vial) 10 mg IV Q6H PRN PRN Reason: Nausea And Vomiting Stop: 09/09/21 17:27 Metoprolol Succinate (Metoprolol Succ 25mg Ext Rel Tab) 25 mg PO [facility] Stop: 09/07/21 08:59 Last Admin: 08/11/21 08:29 Dose: 25 mg Documented by: Miscellaneous (Carbohydrates For Hypoglycemia ) 15 - 30 gm PO UD PRN PRN Reason: Hypoglycemia Protocol Stop: 09/06/21 19:52 Miscellaneous Information (Pharmacy Glycemic Mgmt Consult) 1 ea N/A UD PRN; Protocol PRN Reason: Consult Stop: 09/06/21 19:52 Miscellaneous Information (Vancomycin Consult Active) 1 ea N/A UD PRN PRN Reason: Consult Stop: 09/06/21 19:52 Miscellaneous Information (Piperacill/Tazobac Consult Active) 1 ea N/A UD PRN PRN Reason: Consult Stop: 09/06/21 19:52 Multivitamins (Multivitamin Tab) 1 tab PO [facility] Stop: 09/10/21 08:59 Last Admin: 08/11/21 07:27 Dose: 1 tab Documented by: Naloxone HCl (Naloxone Hcl 0.4 Mg/1 Ml Vial/Carp) 0.1 mg IV Q5M PRN PRN Reason: Oversedation/Resp Depression Stop: 09/09/21 17:27 Ondansetron HCl (Ondansetron Inj 2 Mg/Ml 2 Ml Vial) 4 mg IV Q6H PRN PRN Reason: Nausea Stop: 09/06/21 19:52 Ondansetron HCl (Ondansetron Inj 2 Mg/Ml 2 Ml Vial) 4 mg IV Q6H PRN PRN Reason: Nausea And Vomiting Stop: 09/09/21 17:27 Oxycodone HCl (Oxycodone Hcl Ir 5 Mg Tab (Immediate Release)) 5 - 10 mg PO Q4H PRN PRN Reason: Pain or Pre PT Stop: 08/24/21 17:27 Polyethylene Glycol (Polyethylene (Miralax) 17 Gm Pack) 17 gm PO DAILY PRN PRN Reason: Constipation Stop: 09/06/21 19:52 Sennosides (Senna 8.6 Mg Tab) 17.2 mg PO HS AKUA Stop: 09/09/21 20:59 Last Admin: 08/10/21 20:10 Dose: 17.2 mg Documented by: (1) Diabetic ulcer of right heel Diabetes mellitus type: other specified (including TEVIN) Non-pressure ulcer stage: unspecified non-pressure ulcer stage Qualified Code(s): E13.621 - Other specified diabetes mellitus with foot ulcer; L97.419 - Non-pressure chronic ulcer of right heel and midfoot with unspecified severity (2) CAD (coronary artery disease) Coronary Disease-Associated Artery/Lesion type: samish artery [place] vs. transplanted heart: samish heart Associated angina: without angina Qualified Code(s): I25.10 - Atherosclerotic heart disease of samish coronary artery without angina pectoris
[2021-08-11] MEDS ORDERED: VANCOMYCIN TROUGH ONE (15:30)
[2021-08-11] MEDS: VANCOMYCIN HCL 1,250 MG in SODIUM CHLORIDE 0.9% 250 ML IV SCH (17:08)
[2021-08-11] MEDS: SENNA 8.6 MG TAB PO SCH (20:39)
[2021-08-11] MEDS: ENOXAPARIN INJ 40 MG/0.4 ML SYR SQ SCH (22:27)
[2021-08-12] MEDS: PIPERACILLIN/TAZOBACTAM 3.375 GM in DEXTROSE 5% 100 ML IV SCH ×3 (04:01→21:26)
[2021-08-12] MEDS: VANCOMYCIN HCL 1,250 MG in SODIUM CHLORIDE 0.9% 250 ML IV SCH ×2 (04:17→18:13)
[2021-08-12 06:46] LABS: Creatinine Clr Calc Pharmacy 78.9 ml/min; Est GFR (Non-African American) 71.6 ml/min
[2021-08-12] MEDS: METOPROLOL SUCC 25MG EXT REL TAB PO SCH (08:33)
[2021-08-12] MEDS: DOCUSATE SODIUM 100 MG CAP PO SCH ×2 (08:33→21:33)
[2021-08-12] MEDS: ASPIRIN 81 MG ECTAB PO SCH (08:33)
[2021-08-12] MEDS: ATORVASTATIN 40 MG TAB PO SCH (08:33)
[2021-08-12] MEDS: MULTIVITAMIN TAB PO SCH (08:33)
[2021-08-12] MEDS: lisinopril 5 MG TAB PO SCH (08:33)
[2021-08-12] MEDS: INSULIN HUMAN NPH SC SCH ×2 (08:34→18:06)
[2021-08-12] MEDS: INSULIN ASPART PER UNIT SC SCH ×4 (08:41→20:17)
--- NOTE | 2021-08-12 09:13 | Pharmacy Report ---
Pharmacy Abx Dose Short Note - Date of Service August 12, 2021 - Assessment & Plan Assessment * Mr Jean is a 66 year old M receiving Vancomycin and Zosyn for treatment of diabetic foot ulcer + bone necrosis * I + D completed on 08/10. Today is POD #2. * Patient remains afebrile and without leukocytosis. * Slight rise in Scr yesterday, but trending back down overnight. * Intra-op cultures obtained and pending. Blood cultures remain negative to date. * Per Ortho, patient will require at least 6 weeks of antibiotic therapy Plan Vancomycin * AUC/BRUCE is the preferred PK/PD target for vancomycin * AUC guided dosing is effective and associated with decreased risk of nep hrotoxicity compared to traditional trough targets * Yesterday's trough level of 19.3 mcg/mL is expected to produce target AUC/BRUCE levels; however, vancomycin was changed to 1250mg IV q12h given patient's bump in creatinine. Will monitor renal function closely. * If renal function continues to improve, could consider Vanco 1250mg q8h as this regimen has worked well for Mr. Jean in the past (when Scr ~0.6-0.8). Zosyn * 4.5 g IV x 1 followed by 3.375 g IV every 8 hours Pharmacy will continue to follow and will adjust dose/frequency as necessary. Thank you.
--- NOTE | 2021-08-12 10:56 | Orthopedic Progress Note ---
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 Right heel irrigation and debridement of diabetic neuropathic ulcer including skin, dermis, subcutaneous tissue, fascia and periosteum. 2. Partial calcaneal resection with curettage. 3. Debridement of distal lateral Achilles tendon tear. 4. Partial closure of lateral heel wound measuring 3.4 cm x 1.4 cm x 2.8 cm deep. 5. Application of antibiotic Stimulan beads to the right heel Dressing change today with Adaptic, gauze, ABD, conform wrap, and Panfilo bandage. Continue nonweightbearing on the right lower extremity at all times. Discussed with nursing the order for the waffle boot on right lower extremity to keep pressure off the lateral heel. Continue IV antibiotics. Awaiting intraoperative cultures. Gram-positive cocci on Gram stain. Only pinpoint growth on cultures. Discharge planninguncertain at this time. Awaiting final culture results. Will need 6 weeks of IV antibiotics. Admission and Anticipated Discharge Date Admission Date: August 07, 2021 Subjective Doing well today. No complaints of the right foot or heel. He has been nonweightbearing on the right lower extremity. States he is not been given the waffle boot for the right foot. Physical Exam Constitutional: WD/WN, vitals as above Musculoskeletal: Ankle: + skin erythema (Minimal lateral right heel) and + surgical incision (Approximated ulcer lateral heel with Acticoat Flex in place.); no ecchymosis Psychiatric: A+Ox3, euthymic affect Speech: normal rate/rhythm/volume of speech Results & Data ([facility]) Vital Signs (Past 12 Hours) Vital Signs Temp Pulse Pulse Resp BP Pulse Ox 08/12/21 07:10 36.6 C 66 118/72 98 08/12/21 02:30 36.7 C 67 18 144/84 H 99 08/12/21 01:01 70 08/11/21 23:19 36.6 C 69 18 133/80 97
--- NOTE | 2021-08-12 13:54 | Hospitalist Progress Note ---
Date of Service August 12, 2021 Assessment & Plan (1) Diabetic ulcer of right heel: Plan: This is a 66-year-old male who has significant past medical history of insulin- dependent T2DM, diabetic neuropathy, CAD with history of CABG x4, HTN, HLD, alcohol abuse, history of R calcaneal osteomyelitis who presents to ED due to worsening right heel ulcer x1 month. Pt with hx of R heel OM in past requiring debridement and 6 weeks of IV antibiotics in 01/2021. Cultures at that time grew Staph aureus, prevotella melaninogenica and bivia. Wound culture in february after repeat debridement grew pseudomonas He stopped follow up with [facility] in May and subsequently heel ulcer gradually worsened. Diabetic ulcer of right heel osteomyelitis hx of Chronic R heel Osteomyelitis MRI of the Rt Ankle: IMPRESSION: 1. There is a large cutaneous defect/wound identified along the lateral aspect of the heel. Complex material within this wound may represent surgical packing and clinical correlation will be essential. 2. There is marked marrow edema throughout the calcaneus with erosive change along the dorsal and plantar aspect of the bone deep to the cutaneous defect. The appearance is typical for osteomyelitis and clinical correlation will be required. 3. There is evidence of significant surrounding cellulitis. No organized fluid collection is clearly seen to indicate abscess. 4. There is likely disruption of the lateral bundle of the plantar fascia at the calcaneal attachment. 5. There is marked thickening and tendinopathy of the Achilles tendon with partial thickness tearing. 6. There is a split tear of the peroneus brevis tendon with tenosynovitis of the peroneal tendons. Consult vascular per request of orthopedics Blood cultures ordered-pending for now continue IV antibiotics with vancomycin and zosyn Appreciate Ortho input and recommendation Denies any symptoms-right heel wound is pictured in the system Status post right irrigation and debridement of heel ulcer with calcaneal curettaged on 08/10/2021 Continue management as per Ortho We will continue current antibiotics with vancomycin and Zosyn Gram stain of the biopsies showing scanty growth of bacteria and has been reincubating Pathology result is not back yet. In any case he will need 6 weeks of intravenous antibiotic (2) T2DM (type 2 diabetes mellitus): Plan: T2DM with hyperglycemia a1c 6.7 02/2021, will repeat in a.m. On NPH N as outpt consult glycemic pharmacy, appreciate their assistance (3) CAD (coronary artery disease): Plan: CAD (coronary artery disease): H/O CABG in 2003 EKG ordered, no c/o CP or SOB ECHO 07/23/2019 which revealed EF 55 to 60% Continue ASA, atorvastatin, lisinopril and metoprolol Denies any cardiac symptoms (4) Hypertension: Plan: HTN pt bp elevated in ED, did not take home meds give lisinopril and metoprolol now and re evaluate Blood pressure remains on the upper side of normal at 142/83 Plan: Anemia Normocytic anemia Hemoglobin is 12.5 Likely secondary to chronic disease in setting of chronic osteomyelitis Hx of ETOH abuse drinks 4-6 beers nightly, last was 1 week ago DVT ppx: Lovenox, will need held prior to procedure Dispo: med tele, consider transition to med/surg in 1-2 days if remains stable PCP: Dr. Johnson FULL CODE Admission and Anticipated Discharge Date Admission Date: August 07, 2021 Subjective 08/08/2021 The patient was seen and examined in medical telemetry unit He denies any pain in the foot but has osteomyelitis involving the right heel bones #Peripheral neuropathy secondary to diabetes 08/09/2021 The patient was seen and examined in medical telemetry unit Remains asymptomatic and has been waiting for proposed surgery tomorrow 08/10/2021 The patient was seen and examined in medical telemetry unit He remains stable and does not have any symptoms He will have right heel debridement surgery this afternoon 08/11/2021 The patient was seen and examined in medical telemetry unit He is a status post right heel debridement and irrigation, POD #1 Has had some bleeding from the wound and that was rebandaged by Ortho Denies any pain due to diabetic neuropathy No fever and no chills and no nausea no vomiting 08/12/2021 heart The patient was seen and examined in medical telemetry unit He does not have any more drainage from the debridement site and right heel Denies any symptoms and does not have any pain Review of Systems Review of Systems: All systems reviewed and are unremarkable except as noted below Physical Exam Physical Exam: Lying in bed comfortably Constitutional: well developed and well nourished; not ill appearing Eyes: PERRL, conjunctivae normal, anicteric sclerae ENMT: external ear and nose normal, oropharynx normal Neck: trachea midline, no thyromegaly Respiratory: no respiratory distress Auscultation: lungs clear to auscultation bilaterally Cardiovascular: Rate/Rhythm: regular rate and regular rhythm; not tachycardic Heart Sounds: normal S1 and normal S2; no murmur Extremities: + edema (Trace edema on the right side) Gastrointestinal (Abdomen): Inspection/Auscultation: abdomen not distended Percussion/Palpation: abdomen soft; abdomen nontender Musculoskeletal: Right foot is bandaged and no evidence of soaking Results & Data Results & Data ([facility]) Vital Signs (Past 12 Hours) Vital Signs Temp Pulse Pulse Resp BP BP Pulse Ox 08/12/21 11:43 36.6 C 71 155/75 H 98 08/12/21 08:00 65 08/12/21 07:10 36.6 C 66 118/72 98 08/12/21 02:30 36.7 C 67 18 144/84 H 99 Laboratory Results BMP 08/12/21 05:59 Creatinine 1.08 Medications Administered Current Inpatient Medications Acetaminophen (Acetaminophen 325 Mg Tab) 650 mg PO Q4H PRN PRN Reason: Pain or Fever Stop: 09/06/21 19:52 Al Hydrox/Mg Hydrox/Simethicone (Aluminum/Magnesium Susp 30 Ml Udc) 15 ml PO Q4H PRN PRN Reason: Dyspepsia Stop: 09/06/21 19:52 Al Hydrox/Mg Hydrox/Simethicone (Aluminum/Magnesium Susp 30 Ml Udc) 15 ml PO Q4H PRN PRN Reason: Heartburn Stop: 09/09/21 17:27 Aspirin (Aspirin 81 Mg Ectab) 81 mg PO DAILY [facility] Stop: 09/07/21 08:59 Last Admin: 08/12/21 08:33 Dose: 81 mg Documented by: Atorvastatin Calcium (Atorvastatin 40 Mg Tab) 40 mg PO QAM AKUA Stop: 09/07/21 08:59 Last Admin: 08/12/21 08:33 Dose: 40 mg Documented by: Bisacodyl (Bisacodyl 10 Mg Supp) 10 mg WI DAILY PRN PRN Reason: Constipation Stop: 09/09/21 17:27 Dextrose (Dextrose 50% 50 Ml Syringe) 25 - 50 ml IV UD PRN; Protocol PRN Reason: Hypoglycemia Protocol Stop: 09/06/21 19:52 Diphenhydramine HCl (Diphenhydramine Capsule 25 Mg Cap) 25 mg PO Q8H PRN PRN Reason: Itching Stop: 09/09/21 17:27 Docusate Sodium (Docusate Sodium 100 Mg Cap) 100 mg PO BID AKUA Stop: 09/09/21 20:59 Last Admin: 08/12/21 08:33 Dose: 100 mg Documented by: Enoxaparin Sodium (Enoxaparin Inj 40 Mg/0.4 Ml Syr) 40 mg SQ Q24H AKUA Stop: 09/06/21 21:59 Last Admin: 08/11/21 22:27 Dose: 40 mg Documented by: Glucagon (Glucagon For Inj 1 Mg Vial) 1 mg SQ UD PRN; Protocol PRN Reason: Hypoglycemia Protocol Stop: 09/06/21 19:52 Glucose (Glucose 10 Tabs/Tube) 4 - 8 tabs PO UD PRN; Protocol PRN Reason: Hypoglycemia Protocol Stop: 09/06/21 19:52 Glucose (Glucose 40% Gel 15 Gm Tube) 15 - 30 gm PO UD PRN; Protocol PRN Reason: Hypoglycemia Protocol Stop: 09/06/21 19:52 Guaifenesin (Guaifenesin Sugar Free 200 Mg/10 Ml Udc) 200 mg PO Q6H PRN PRN Reason: Cough Stop: 09/06/21 21:22 Last Admin: 08/07/21 22:06 Dose: 200 mg Documented by: Hydromorphone HCl (Hydromorphone Inj 0.5 Mg/0.5 Ml Syr) 0.5 mg IV Q3H PRN PRN Reason: Pain or Pre PT Stop: 08/24/21 17:27 Piperacillin Sod/Tazobactam (Sod 3.375 gm/ Dextrose) 115 mls @ 28.75 mls/hr IV Q8H AKUA; Protocol Stop: 09/18/21 20:29 Last Admin: 08/12/21 12:30 Dose: 28.8 mls/hr Documented by: Vancomycin HCl 1,250 mg/ (Sodium Chloride) 275 mls @ 200 mls/hr IV Q12H AKUA Stop: 09/20/21 16:59 Last Infusion: 08/12/21 06:09 Dose: Infused Documented by: Insulin Aspart (Insulin Aspart Per Unit) 0 units SC ACHS [facility]; Protocol Stop: 09/06/21 19:52 Last Admin: 08/12/21 12:31 Dose: 14 units Documented by: Insulin Human NPH (Insulin Human Nph) 15 units SC BIDM [facility]; Protocol Stop: 09/07/21 08:59 Last Admin: 08/12/21 08:34 Dose: 15 units Documented by: Lisinopril (Lisinopril 5 Mg Tab) 5 mg PO [facility] Stop: 09/07/21 08:59 Last Admin: 08/12/21 08:33 Dose: 5 mg Documented by: Magnesium Hydroxide (Magnesium Hydroxide Susp 30 Ml Udc) 30 ml PO Q12H PRN PRN Reason: Constipation Stop: 09/06/21 19:52 Magnesium Hydroxide (Magnesium Hydroxide Susp 30 Ml Udc) 30 ml PO Q6H PRN PRN Reason: Constipation Stop: 09/09/21 17:27 Metoclopramide HCl (Metoclopramide Hcl Inj 5 Mg/Ml 2 Ml Vial) 10 mg IV Q6H PRN PRN Reason: Nausea And Vomiting Stop: 09/09/21 17:27 Metoprolol Succinate (Metoprolol Succ 25mg Ext Rel Tab) 25 mg PO [facility] Stop: 09/07/21 08:59 Last Admin: 08/12/21 08:33 Dose: 25 mg Documented by: Miscellaneous (Carbohydrates For Hypoglycemia ) 15 - 30 gm PO UD PRN PRN Reason: Hypoglycemia Protocol Stop: 09/06/21 19:52 Miscellaneous Information (Pharmacy Glycemic Mgmt Consult) 1 ea N/A UD PRN; Protocol PRN Reason: Consult Stop: 09/06/21 19:52 Miscellaneous Information (Vancomycin Consult Active) 1 ea N/A UD PRN PRN Reason: Consult Stop: 09/06/21 19:52 Miscellaneous Information (Piperacill/Tazobac Consult Active) 1 ea N/A UD PRN PRN Reason: Consult Stop: 09/06/21 19:52 Multivitamins (Multivitamin Tab) 1 tab PO [facility] Stop: 09/10/21 08:59 Last Admin: 08/12/21 08:33 Dose: 1 tab Documented by: Naloxone HCl (Naloxone Hcl 0.4 Mg/1 Ml Vial/Carp) 0.1 mg IV Q5M PRN PRN Reason: Oversedation/Resp Depression Stop: 09/09/21 17:27 Ondansetron HCl (Ondansetron Inj 2 Mg/Ml 2 Ml Vial) 4 mg IV Q6H PRN PRN Reason: Nausea Stop: 09/06/21 19:52 Ondansetron HCl (Ondansetron Inj 2 Mg/Ml 2 Ml Vial) 4 mg IV Q6H PRN PRN Reason: Nausea And Vomiting Stop: 09/09/21 17:27 Oxycodone HCl (Oxycodone Hcl Ir 5 Mg Tab (Immediate Release)) 5 - 10 mg PO Q4H PRN PRN Reason: Pain or Pre PT Stop: 08/24/21 17:27 Polyethylene Glycol (Polyethylene (Miralax) 17 Gm Pack) 17 gm PO DAILY PRN PRN Reason: Constipation Stop: 09/06/21 19:52 Sennosides (Senna 8.6 Mg Tab) 17.2 mg PO HS AKUA Stop: 09/09/21 20:59 Last Admin: 08/11/21 20:39 Dose: 17.2 mg Documented by: (1) Diabetic ulcer of right heel Diabetes mellitus type: other specified (including TEVIN) Non-pressure ulcer stage: unspecified non-pressure ulcer stage Qualified Code(s): E13.621 - Other specified diabetes mellitus with foot ulcer; L97.419 - Non-pressure chronic ulcer of right heel and midfoot with unspecified severity (2) CAD (coronary artery disease) Coronary Disease-Associated Artery/Lesion type: [place] artery Tribe vs. transplanted heart: [place] heart Associated angina: without angina Qualified Code(s): I25.10 - Atherosclerotic heart disease of [place] coronary artery without angina pectoris
[2021-08-12] MEDS: SENNA 8.6 MG TAB PO SCH (21:33)
[2021-08-12] MEDS: ENOXAPARIN INJ 40 MG/0.4 ML SYR SQ SCH (21:33)
[2021-08-13] MEDS ORDERED: VANCOMYCIN TROUGH ONE (04:30)
[2021-08-13] MEDS: PIPERACILLIN/TAZOBACTAM 3.375 GM in DEXTROSE 5% 100 ML IV SCH ×3 (04:53→20:55)
[2021-08-13] MEDS: VANCOMYCIN HCL 1,250 MG in SODIUM CHLORIDE 0.9% 250 ML IV SCH ×2 (06:05→17:19)
[2021-08-13] MEDS: ASPIRIN 81 MG ECTAB PO SCH (08:07)
[2021-08-13] MEDS: ATORVASTATIN 40 MG TAB PO SCH (08:08)
[2021-08-13] MEDS: DOCUSATE SODIUM 100 MG CAP PO SCH ×2 (08:09→20:52)
[2021-08-13] MEDS: METOPROLOL SUCC 25MG EXT REL TAB PO SCH (08:10)
[2021-08-13] MEDS: lisinopril 5 MG TAB PO SCH (08:10)
[2021-08-13] MEDS: MULTIVITAMIN TAB PO SCH (08:11)
[2021-08-13] MEDS: INSULIN HUMAN NPH SC SCH ×2 (08:25→17:21)
[2021-08-13] MEDS: INSULIN ASPART PER UNIT SC SCH ×4 (08:51→21:00)
--- NOTE | 2021-08-13 10:20 | Orthopedic Progress Note ---
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 Right heel irrigation and debridement of diabetic neuropathic ulcer including skin, dermis, subcutaneous tissue, fascia and periosteum. 2. Partial calcaneal resection with curettage. 3. Debridement of distal lateral Achilles tendon tear. 4. Partial closure of lateral heel wound measuring 3.4 cm x 1.4 cm x 2.8 cm deep. 5. Application of antibiotic Stimulan beads to the right heel Daily dressing changes. Continue nonweightbearing on the right lower extremity at all times. Waffle boot on right lower extremity to keep pressure off the lateral heel. Continue IV antibiotics. Awaiting intraoperative cultures. Gram-positive cocci on Gram stain. Only pinpoint growth on cultures. Pathology pending. Discharge planninguncertain at this time. Awaiting final culture results. ID consulted. Will likely need 6 weeks of IV antibiotics. Admission and Anticipated Discharge Date Admission Date: August 07, 2021 Subjective POD 3 Pt awake, alert. No complaints. Comfortable. Pain controlled. Physical Exam Physical Exam: Dressing changed. Wound benign. Minimal serous drainage. Mild erythema posterior heel. Looks much better since seeing it on admission. Less erythema. Results & Data ([facility]) Vital Signs (Past 12 Hours) Vital Signs Temp Pulse Pulse Pulse Resp BP Pulse Ox 08/13/21 07:15 36.4 C L 62 15 120/74 96 08/13/21 06:45 36.3 C L 64 112/64 99 08/13/21 04:30 36.7 C 66 18 146/77 H 98 08/12/21 23:44 67 08/12/21 22:23 36.5 C 67 18 146/81 H 96
--- NOTE | 2021-08-13 11:03 | Pharmacy Report ---
Pharmacy Vanc AUC Short Note - Date of Service August 13, 2021 - Assessment & Plan Assessment 66 year old M receiving vancomycin and Zosyn for treatment of diabetic foot ulcer (right heel). POD #3 s/p right heel irrigation/debridement. Pertinent microbiologic data includes: blood cultures x 2 (08/07) no growth at 5 days, right foot (pin-point growth, reincubating) w/ gram stain showing moderate gram- positive cocci. No new labs today, will recheck SCr in AM. Day # 7 of antimicrobial therapy, likely to require 6 weeks of treatment. Plan Vancomycin * AUC/BRUCE is the preferred PK/PD target for vancomycin * AUC guided dosing is effective and associated with decreased risk of nephrotoxicity compared to traditional trough targets * Trough level of 19.8 mcg/mL is predicted to achieve target AUC/BRUCE of 400-600 mg/L.hr and may be associated with a 12 % risk of nephrotoxicity * Of note, dose preceding level was given ~80 minutes after scheduled time * Continue dose of 1250 mg IV every 12 hours Zosyn * Continue 3.375 g IV q8h Pharmacy will continue to follow and will adjust dose/frequency as necessary. Thank you.
--- NOTE | 2021-08-13 13:01 | Pharmacy Report ---
Pharmacy Glycemic Short Note 2 - Date of Service August 13, 2021 - Glycemic Short BSG Results (Last 24 hours): 08/12/21 08/12/21 08/13/21 16:23 20:01 07:16 POC Glucose 105 H 125 H 109 H 08/13/21 11:30 POC Glucose 241 H OUTPATIENT ANTIDIABETIC REGIMEN: * NPH 20 units SC BID * HbA1c: 7.8% (08/08/21) ASSESSMENT: 08/13 * BSGs consistently elevated at lunchtime, will tighten AM Novolog starting tomorrow morning * BSGs otherwise WNL, continue current NPH and Novolog with lunch, dinner, HS * Continues on vancomycin/Zosyn for diabetic foot infection 08/10 * Pt is going to the OR today for I&D, possible osteotomy R heel. * NPH dose reduced this morning while pt is NPO. * Will aim for tight glycemic control post-op to facilitate wound/infection healing. 08/08 * 66 yo M admitted secondary to diabetic foot ulcer and possible osteomyelitis. Pharmacy has been consulted to assist with inpatient glycemic management. Patient is ordered a T2DM diet for now. Unsure if there are plans for surgery at this time. * Admission BSG was 143 mg/dL last evening. Patient received 10 units of NPH and 5 units of Novolog at that time. * Fasting BSG was 156 mg/dL this AM. Will start NPH at 75% of home dose. * Lunch BSG did increase to 180 mg/dL at lunch today so tightened carb ratio slightly from admission. Targeting a goal of 110-140 mg/dL to promote wound healing and help prevent infection. PLAN FOR INPATIENT GLYCEMIC CONTROL: * Basal insulin * NPH 15 units SC BIDM * Bolus insulin * NovoLog per scale ACHS or Q6hrs while NPO * Goal Range: Low 110 mg/dL - High 140 mg/dL * Correction Factor: 25 mg/dL/unit (20 mg/dL/unit with breakfast) * Nutritional / Prandial insulin per carb ratio of 1 unit per 8 grams CHO consumed (1 unit per 6 grams CHO consumed with breakfast) PLAN FOR DISCHARGE: * A1c: 7.8% * This indicates reasonable, but slightly suboptimal glycemic control in a 66yo patient. Would prefer A1c closer to 7%, especially in the setting of recurrent infections and now post-operatively. * Per respiratory support technician note, home BSGs values are reasonable * Okay to continue current home regimen, ensure prompt follow-up with outpatient provider for further insulin dose adjustments
--- NOTE | 2021-08-13 14:13 | Hospitalist Progress Note ---
Date of Service August 13, 2021 Assessment & Plan (1) Diabetic ulcer of right heel: Plan: This is a 66-year-old male who has significant past medical history of insulin- dependent T2DM, diabetic neuropathy, CAD with history of CABG x4, HTN, HLD, alcohol abuse, history of R calcaneal osteomyelitis who presents to ED due to worsening right heel ulcer x1 month. Pt with hx of R heel OM in past requiring debridement and 6 weeks of IV antibiotics in 01/2021. Cultures at that time grew Staph aureus, prevotella melaninogenica and bivia. Wound culture in february after repeat debridement grew pseudomonas He stopped follow up with [facility] in May and subsequently heel ulcer gradually worsened. Diabetic ulcer of right heel osteomyelitis hx of Chronic R heel Osteomyelitis MRI of the Rt Ankle: IMPRESSION: 1. There is a large cutaneous defect/wound identified along the lateral aspect of the heel. Complex material within this wound may represent surgical packing and clinical correlation will be essential. 2. There is marked marrow edema throughout the calcaneus with erosive change along the dorsal and plantar aspect of the bone deep to the cutaneous defect. The appearance is typical for osteomyelitis and clinical correlation will be required. 3. There is evidence of significant surrounding cellulitis. No organized fluid collection is clearly seen to indicate abscess. 4. There is likely disruption of the lateral bundle of the plantar fascia at the calcaneal attachment. 5. There is marked thickening and tendinopathy of the Achilles tendon with partial thickness tearing. 6. There is a split tear of the peroneus brevis tendon with tenosynovitis of the peroneal tendons. Consult vascular per request of orthopedics Blood cultures ordered-remain negative continue IV antibiotics with vancomycin and zosyn Appreciate Ortho input and recommendation Denies any symptoms-right heel wound is pictured in the system Status post right irrigation and debridement of heel ulcer with calcaneal curettaged on 08/10/2021 Continue management as per Ortho We will continue current antibiotics with vancomycin and Zosyn Gram stain of the biopsies showing scanty growth of bacteria and has been reincubating Pathology result is not back yet. In any case he will likely need 6 weeks of intravenous antibiotic We will get an ID evaluation for antibiotic choice and duration (2) T2DM (type 2 diabetes mellitus): Plan: T2DM with hyperglycemia a1c 6.7 02/2021, will repeat in a.m. On NPH N as outpt consult glycemic pharmacy, appreciate their assistance Blood sugar remains stable (3) CAD (coronary artery disease): Plan: CAD (coronary artery disease): H/O CABG in 2003 EKG ordered, no c/o CP or SOB ECHO 07/23/2019 which revealed EF 55 to 60% Continue ASA, atorvastatin, lisinopril and metoprolol Denies any cardiac symptoms (4) Hypertension: Plan: HTN pt bp elevated in ED, did not take home meds give lisinopril and metoprolol now and re evaluate Blood pressure remains on the upper side of normal at 142/83 Plan: Anemia Normocytic anemia Hemoglobin is 12.5 Likely secondary to chronic disease in setting of chronic osteomyelitis Hx of ETOH abuse drinks 4-6 beers nightly, last was 1 week ago DVT ppx: Lovenox, will need held prior to procedure Dispo: med tele, consider transition to med/surg in 1-2 days if remains stable PCP: Dr. Johnson FULL CODE Admission and Anticipated Discharge Date Admission Date: August 07, 2021 Subjective 08/08/2021 The patient was seen and examined in medical telemetry unit He denies any pain in the foot but has osteomyelitis involving the right heel bones #Peripheral neuropathy secondary to diabetes 08/09/2021 The patient was seen and examined in medical telemetry unit Remains asymptomatic and has been waiting for proposed surgery tomorrow 08/10/2021 The patient was seen and examined in medical telemetry unit He remains stable and does not have any symptoms He will have right heel debridement surgery this afternoon 08/11/2021 The patient was seen and examined in medical telemetry unit He is a status post right heel debridement and irrigation, POD #1 Has had some bleeding from the wound and that was rebandaged by Ortho Denies any pain due to diabetic neuropathy No fever and no chills and no nausea no vomiting 08/12/2021 heart The patient was seen and examined in medical telemetry unit He does not have any more drainage from the debridement site and right heel Denies any symptoms and does not have any pain 08/13/2021 The patient was seen and examined in medical telemetry unit He does not have any pain at the operated site in the right heel-no more drainage No fever and no chills Review of Systems Review of Systems: All systems reviewed and are unremarkable except as noted below Physical Exam Physical Exam: Lying in bed comfortably Constitutional: well developed and well nourished; not ill appearing Eyes: PERRL, conjunctivae normal, anicteric sclerae ENMT: external ear and nose normal, oropharynx normal Neck: trachea midline, no thyromegaly Respiratory: no respiratory distress Auscultation: lungs clear to auscultation bilaterally Cardiovascular: Rate/Rhythm: regular rate and regular rhythm; not tachycardic Heart Sounds: normal S1 and normal S2; no murmur Extremities: + edema (Trace edema on the right side) Gastrointestinal (Abdomen): Inspection/Auscultation: abdomen not distended Percussion/Palpation: abdomen soft; abdomen nontender Musculoskeletal: Right heel and foot is bandaged Neurologic: Alert, awake and oriented x3 Results & Data Results & Data ([facility]) Vital Signs (Past 12 Hours) Vital Signs Temp Pulse Pulse Pulse Resp BP Pulse Ox 08/13/21 10:27 36.7 C 69 16 112/74 97 08/13/21 08:00 65 08/13/21 07:15 36.4 C L 62 15 120/74 96 08/13/21 06:45 36.3 C L 64 112/64 99 08/13/21 04:30 36.7 C 66 18 146/77 H 98 Medications Administered Current Inpatient Medications Acetaminophen (Acetaminophen 325 Mg Tab) 650 mg PO Q4H PRN PRN Reason: Pain or Fever Stop: 09/06/21 19:52 Al Hydrox/Mg Hydrox/Simethicone (Aluminum/Magnesium Susp 30 Ml Udc) 15 ml PO Q4H PRN PRN Reason: Dyspepsia Stop: 09/06/21 19:52 Al Hydrox/Mg Hydrox/Simethicone (Aluminum/Magnesium Susp 30 Ml Udc) 15 ml PO Q4H PRN PRN Reason: Heartburn Stop: 09/09/21 17:27 Aspirin (Aspirin 81 Mg Ectab) 81 mg PO DAILY [facility] Stop: 09/07/21 08:59 Last Admin: 08/13/21 08:07 Dose: 81 mg Documented by: Atorvastatin Calcium (Atorvastatin 40 Mg Tab) 40 mg PO QAM [facility] Stop: 09/07/21 08:59 Last Admin: 08/13/21 08:08 Dose: 40 mg Documented by: Bisacodyl (Bisacodyl 10 Mg Supp) 10 mg [place] DAILY PRN PRN Reason: Constipation Stop: 09/09/21 17:27 Dextrose (Dextrose 50% 50 Ml Syringe) 25 - 50 ml IV UD PRN; Protocol PRN Reason: Hypoglycemia Protocol Stop: 09/06/21 19:52 Diphenhydramine HCl (Diphenhydramine Capsule 25 Mg Cap) 25 mg PO Q8H PRN PRN Reason: Itching Stop: 09/09/21 17:27 Docusate Sodium (Docusate Sodium 100 Mg Cap) 100 mg PO BID [facility] Stop: 09/09/21 20:59 Last Admin: 08/13/21 08:09 Dose: 100 mg Documented by: Enoxaparin Sodium (Enoxaparin Inj 40 Mg/0.4 Ml Syr) 40 mg SQ Q24H [facility] Stop: 09/06/21 21:59 Last Admin: 08/12/21 21:33 Dose: 40 mg Documented by: Glucagon (Glucagon For Inj 1 Mg Vial) 1 mg SQ UD PRN; Protocol PRN Reason: Hypoglycemia Protocol Stop: 09/06/21 19:52 Glucose (Glucose 10 Tabs/Tube) 4 - 8 tabs PO UD PRN; Protocol PRN Reason: Hypoglycemia Protocol Stop: 09/06/21 19:52 Glucose (Glucose 40% Gel 15 Gm Tube) 15 - 30 gm PO UD PRN; Protocol PRN Reason: Hypoglycemia Protocol Stop: 09/06/21 19:52 Guaifenesin (Guaifenesin Sugar Free 200 Mg/10 Ml Udc) 200 mg PO Q6H PRN PRN Reason: Cough Stop: 09/06/21 21:22 Last Admin: 08/07/21 22:06 Dose: 200 mg Documented by: Hydromorphone HCl (Hydromorphone Inj 0.5 Mg/0.5 Ml Syr) 0.5 mg IV Q3H PRN PRN Reason: Pain or Pre PT Stop: 08/24/21 17:27 Piperacillin Sod/Tazobactam (Sod 3.375 gm/ Dextrose) 115 mls @ 28.75 mls/hr IV Q8H [facility]; Protocol Stop: 09/18/21 20:29 Last Admin: 08/13/21 12:28 Dose: 28.8 mls/hr Documented by: Vancomycin HCl 1,250 mg/ (Sodium Chloride) 275 mls @ 200 mls/hr IV Q12H [facility] Stop: 09/20/21 16:59 Last Infusion: 08/13/21 07:28 Dose: Infused Documented by: Insulin Aspart (Insulin Aspart Per Unit) 0 units SC 1130,1630,2100 [facility]; Protocol Stop: 09/06/21 19:52 Insulin Aspart (Insulin Aspart Per Unit) 0 units SC 0730 [facility]; Protocol Stop: 09/13/21 07:29 Insulin Human NPH (Insulin Human Nph) 15 units [place] BIDM [facility]; Protocol Stop: 09/07/21 08:59 Last Admin: 08/13/21 08:25 Dose: 15 units Documented by: Lisinopril (Lisinopril 5 Mg Tab) 5 mg PO [facility] Stop: 09/07/21 08:59 Last Admin: 08/13/21 08:10 Dose: 5 mg Documented by: Magnesium Hydroxide (Magnesium Hydroxide Susp 30 Ml Udc) 30 ml PO Q12H PRN PRN Reason: Constipation Stop: 09/06/21 19:52 Magnesium Hydroxide (Magnesium Hydroxide Susp 30 Ml Udc) 30 ml PO Q6H PRN PRN Reason: Constipation Stop: 09/09/21 17:27 Metoclopramide HCl (Metoclopramide Hcl Inj 5 Mg/Ml 2 Ml Vial) 10 mg IV Q6H PRN PRN Reason: Nausea And Vomiting Stop: 09/09/21 17:27 Metoprolol Succinate (Metoprolol Succ 25mg Ext Rel Tab) 25 mg PO [facility] Stop: 09/07/21 08:59 Last Admin: 08/13/21 08:10 Dose: 25 mg Documented by: Miscellaneous (Carbohydrates For Hypoglycemia ) 15 - 30 gm PO UD PRN PRN Reason: Hypoglycemia Protocol Stop: 09/06/21 19:52 Miscellaneous Information (Pharmacy Glycemic Mgmt Consult) 1 ea N/A UD PRN; Protocol PRN Reason: Consult Stop: 09/06/21 19:52 Miscellaneous Information (Vancomycin Consult Active) 1 ea N/A UD PRN PRN Reason: Consult Stop: 09/06/21 19:52 Miscellaneous Information (Piperacill/Tazobac Consult Active) 1 ea N/A UD PRN PRN Reason: Consult Stop: 09/06/21 19:52 Multivitamins (Multivitamin Tab) 1 tab PO [facility] Stop: 09/10/21 08:59 Last Admin: 08/13/21 08:11 Dose: 1 tab Documented by: Naloxone HCl (Naloxone Hcl 0.4 Mg/1 Ml Vial/Carp) 0.1 mg IV Q5M PRN PRN Reason: Oversedation/Resp Depression Stop: 09/09/21 17:27 Ondansetron HCl (Ondansetron Inj 2 Mg/Ml 2 Ml Vial) 4 mg IV Q6H PRN PRN Reason: Nausea Stop: 09/06/21 19:52 Ondansetron HCl (Ondansetron Inj 2 Mg/Ml 2 Ml Vial) 4 mg IV Q6H PRN PRN Reason: Nausea And Vomiting Stop: 09/09/21 17:27 Oxycodone HCl (Oxycodone Hcl Ir 5 Mg Tab (Immediate Release)) 5 - 10 mg PO Q4H PRN PRN Reason: Pain or Pre PT Stop: 08/24/21 17:27 Polyethylene Glycol (Polyethylene (Miralax) 17 Gm Pack) 17 gm PO DAILY PRN PRN Reason: Constipation Stop: 09/06/21 19:52 Sennosides (Senna 8.6 Mg Tab) 17.2 mg PO HS [facility] Stop: 09/09/21 20:59 Last Admin: 08/12/21 21:33 Dose: 17.2 mg Documented by: (1) Diabetic ulcer of right heel Diabetes mellitus type: other specified (including TEVIN) Non-pressure ulcer stage: unspecified non-pressure ulcer stage Qualified Code(s): E13.621 - Other specified diabetes mellitus with foot ulcer; L97.419 - Non-pressure chronic ulcer of right heel and midfoot with unspecified severity (2) CAD (coronary artery disease) Coronary Disease-Associated Artery/Lesion type: [place] artery [place] vs. transplanted heart: [place] heart Associated angina: without angina Qualified Code(s): I25.10 - Atherosclerotic heart disease of [place] coronary artery without angina pectoris
[2021-08-13] MEDS: SENNA 8.6 MG TAB PO SCH (20:52)
[2021-08-13] MEDS: ENOXAPARIN INJ 40 MG/0.4 ML SYR SQ SCH (21:01)
[2021-08-14] MEDS: PIPERACILLIN/TAZOBACTAM 3.375 GM in DEXTROSE 5% 100 ML IV SCH ×3 (04:43→20:10)
[2021-08-14] MEDS: VANCOMYCIN HCL 1,250 MG in SODIUM CHLORIDE 0.9% 250 ML IV SCH ×2 (04:43→18:11)
[2021-08-14 06:10] LABS: Basophils # (auto) 0.03 K/uL (0-0.2); Basophils % (auto) 0.6 %; Eosinophils # (auto) 0.38 K/uL (0-0.5); Eosinophils % (auto) 7.4 %; Hematocrit (blood only) 32.2 % (42-52); Hemoglobin 10.9 g/dL (14.0-18.0); Immature Granulocytes # (auto) 0.03 K/uL (0.00-0.02); Immature Granulocytes % (auto) 0.6 %; Lymphocytes # (auto) 1.45 K/uL (1.2-3.4); Lymphocytes % (auto) 28.1 %; Mean Corpuscular Hemoglobin 27.9 pg (25-34); Mean Corpuscular Hgb Conc 33.9 g/dL (32-36); Mean Corpuscular Volume 82.6 fL (80-100); Mean Platelet Volume 9.2 fL (7.4-10.4); Monocytes # (auto) 0.48 K/uL (0.11-0.59); Monocytes % (auto) 9.3 %; Neutrophils # (auto) 2.79 K/uL (1.4-6.5); Platelet Count 219 K/uL (130-400); RDW Coefficient of Variation 12.6 % (11.5-14.5); RDW Standard Deviation 37.4 fL (36.4-46.3); White Blood Count 5.16 K/uL (4.8-10.8)
[2021-08-14 06:57] LABS: Anion Gap 5 (3-11); BUN Creatinine Ratio 22.2 (10-20); Blood Urea Nitrogen 24 mg/dl (6-23); Carbon Dioxide 24 mmol/L (21-32); Chloride 105 mmol/L (98-107); Creatinine Clr Calc Pharmacy 78.7 ml/min; Est GFR (Non-African American) 71.6 ml/min; Glucose 94 mg/dl (70-99(Fasting)); Sodium 134 mmol/L (136-145)
[2021-08-14] MEDS: MULTIVITAMIN TAB PO SCH (07:45)
[2021-08-14] MEDS: SENNA 8.6 MG TAB PO SCH (07:45)
[2021-08-14] MEDS: METOPROLOL SUCC 25MG EXT REL TAB PO SCH (07:45)
[2021-08-14] MEDS: lisinopril 5 MG TAB PO SCH (07:45)
[2021-08-14] MEDS: ASPIRIN 81 MG ECTAB PO SCH (07:46)
[2021-08-14] MEDS: ATORVASTATIN 40 MG TAB PO SCH (07:46)
[2021-08-14] MEDS: DOCUSATE SODIUM 100 MG CAP PO SCH ×2 (07:47→20:03)
[2021-08-14] MEDS: INSULIN HUMAN NPH SC SCH ×2 (07:49→19:59)
[2021-08-14] MEDS: INSULIN ASPART PER UNIT SC SCH ×4 (07:49→20:09)
--- NOTE | 2021-08-14 16:48 | Hospitalist Progress Note ---
Date of Service August 14, 2021 Assessment & Plan (1) Diabetic ulcer of right heel: Plan: This is a 66-year-old male who has significant past medical history of insulin- dependent T2DM, diabetic neuropathy, CAD with history of CABG x4, HTN, HLD, alcohol abuse, history of R calcaneal osteomyelitis who presents to ED due to worsening right heel ulcer x1 month. Pt with hx of R heel OM in past requiring debridement and 6 weeks of IV antibiotics in 01/2021. Cultures at that time grew Staph aureus, prevotella melaninogenica and bivia. Wound culture in february after repeat debridement grew pseudomonas He stopped follow up with [facility] in May and subsequently heel ulcer gradually worsened. Diabetic ulcer of right heel osteomyelitis hx of Chronic R heel Osteomyelitis MRI of the Rt Ankle: IMPRESSION: 1. There is a large cutaneous defect/wound identified along the lateral aspect of the heel. Complex material within this wound may represent surgical packing and clinical correlation will be essential. 2. There is marked marrow edema throughout the calcaneus with erosive change along the dorsal and plantar aspect of the bone deep to the cutaneous defect. The appearance is typical for osteomyelitis and clinical correlation will be required. 3. There is evidence of significant surrounding cellulitis. No organized fluid collection is clearly seen to indicate abscess. 4. There is likely disruption of the lateral bundle of the plantar fascia at the calcaneal attachment. 5. There is marked thickening and tendinopathy of the Achilles tendon with partial thickness tearing. 6. There is a split tear of the peroneus brevis tendon with tenosynovitis of the peroneal tendons. Consult vascular per request of orthopedics Blood cultures ordered-remain negative continue IV antibiotics with vancomycin and zosyn Appreciate Ortho input and recommendation Denies any symptoms-right heel wound is pictured in the system Status post right irrigation and debridement of heel ulcer with calcaneal curettaged on 08/10/2021 Continue management as per Ortho We will continue current antibiotics with vancomycin and Zosyn Gram stain of the biopsies showing scanty growth of bacteria and has been reincubating Pathology result is not back yet. In any case he will likely need 6 weeks of intravenous antibiotic We will get an ID evaluation for antibiotic choice and duration Appreciate ID input and recommendation-continue current antibiotic for now and will require up to 6 weeks of IV antibiotic Await further identification of the Gram stain and culture-bone biopsy confirmed to be acute osteomyelitis PICC line is placed today for possible discharge in a day or 2 (2) T2DM (type 2 diabetes mellitus): Plan: T2DM with hyperglycemia a1c 6.7 02/2021, will repeat in a.m. On NPH N as outpt consult glycemic pharmacy, appreciate their assistance Blood sugar remains stable (3) CAD (coronary artery disease): Plan: CAD (coronary artery disease): H/O CABG in 2003 EKG ordered, no c/o CP or SOB ECHO 07/23/2019 which revealed EF 55 to 60% Continue ASA, atorvastatin, lisinopril and metoprolol Denies any cardiac symptoms (4) Hypertension: Plan: HTN pt bp elevated in ED, did not take home meds give lisinopril and metoprolol now and re evaluate Blood pressure remains on the upper side of normal at 142/83 Plan: Anemia Normocytic anemia Hemoglobin is 12.5 Likely secondary to chronic disease in setting of chronic osteomyelitis Hx of ETOH abuse drinks 4-6 beers nightly, last was 1 week ago DVT ppx: Lovenox, will need held prior to procedure Dispo: med tele, consider transition to med/surg in 1-2 days if remains stable PCP: Dr. Johnson FULL CODE Admission and Anticipated Discharge Date Admission Date: August 07, 2021 Subjective 08/08/2021 The patient was seen and examined in medical telemetry unit He denies any pain in the foot but has osteomyelitis involving the right heel bones #Peripheral neuropathy secondary to diabetes 08/09/2021 The patient was seen and examined in medical telemetry unit Remains asymptomatic and has been waiting for proposed surgery tomorrow 08/10/2021 The patient was seen and examined in medical telemetry unit He remains stable and does not have any symptoms He will have right heel debridement surgery this afternoon 08/11/2021 The patient was seen and examined in medical telemetry unit He is a status post right heel debridement and irrigation, POD #1 Has had some bleeding from the wound and that was rebandaged by Ortho Denies any pain due to diabetic neuropathy No fever and no chills and no nausea no vomiting 08/12/2021 heart The patient was seen and examined in medical telemetry unit He does not have any more drainage from the debridement site and right heel Denies any symptoms and does not have any pain 08/13/2021 The patient was seen and examined in medical telemetry unit He does not have any pain at the operated site in the right heel-no more drainage No fever and no chills 08/14/2021 The patient was seen and examined in medical telemetry unit He has been stable denies any pain in the right heel He will have PICC line placement today and possible discharge in a day or 2 Review of Systems Review of Systems: All systems reviewed and are unremarkable except as noted below Physical Exam Physical Exam: Lying in bed comfortably Constitutional: well developed and well nourished; not ill appearing Eyes: PERRL, conjunctivae normal, anicteric sclerae ENMT: external ear and nose normal, oropharynx normal Neck: trachea midline, no thyromegaly Respiratory: no respiratory distress Auscultation: lungs clear to auscultation bilaterally Cardiovascular: Rate/Rhythm: regular rate and regular rhythm; not tachycardic Heart Sounds: normal S1 and normal S2; no murmur Extremities: + edema (Trace edema on the right side) Gastrointestinal (Abdomen): Inspection/Auscultation: abdomen not distended Percussion/Palpation: abdomen soft; abdomen nontender Musculoskeletal: No acute arthritis in any joint Neurologic: CN's II-XI intact bilaterally; no focal motor deficits Psychiatric: A+Ox3, euthymic affect Results & Data Results & Data ([facility]) Vital Signs (Past 12 Hours) Vital Signs Temp Pulse Pulse Resp BP Pulse Ox 08/14/21 14:58 36.9 C 77 74 16 134/65 96 08/14/21 11:03 36.6 C 68 18 128/77 97 08/14/21 07:26 36.5 C 66 64 18 145/81 H 98 Laboratory Results Short CBC 08/14/21 Range/Units 05:41 WBC 5.16 (4.8-10.8) K/uL Hgb 10.9 L (14.0-18.0) g/dL Hct 32.2 L (42-52) % Plt Count 219 (130-400) K/uL BMP 08/14/21 05:41 Sodium 134 L Potassium TNP Chloride 105 Carbon Dioxide 24 BUN 24 H Creatinine 1.08 Glucose 94 Calcium 9.0 Medications Administered Current Inpatient Medications Acetaminophen (Acetaminophen 325 Mg Tab) 650 mg PO Q4H PRN PRN Reason: Pain or Fever Stop: 09/06/21 19:52 Al Hydrox/Mg Hydrox/Simethicone (Aluminum/Magnesium Susp 30 Ml Udc) 15 ml PO Q4H PRN PRN Reason: Dyspepsia Stop: 09/06/21 19:52 Al Hydrox/Mg Hydrox/Simethicone (Aluminum/Magnesium Susp 30 Ml Udc) 15 ml PO Q4H PRN PRN Reason: Heartburn Stop: 09/09/21 17:27 Aspirin (Aspirin 81 Mg Ectab) 81 mg PO DAILY [facility] Stop: 09/07/21 08:59 Last Admin: 08/14/21 07:46 Dose: 81 mg Documented by: Atorvastatin Calcium (Atorvastatin 40 Mg Tab) 40 mg PO QAM [facility] Stop: 09/07/21 08:59 Last Admin: 08/14/21 07:46 Dose: 40 mg Documented by: Bisacodyl (Bisacodyl 10 Mg Supp) 10 mg [place] DAILY PRN PRN Reason: Constipation Stop: 09/09/21 17:27 Dextrose (Dextrose 50% 50 Ml Syringe) 25 - 50 ml IV UD PRN; Protocol PRN Reason: Hypoglycemia Protocol Stop: 09/06/21 19:52 Diphenhydramine HCl (Diphenhydramine Capsule 25 Mg Cap) 25 mg PO Q8H PRN PRN Reason: Itching Stop: 09/09/21 17:27 Docusate Sodium (Docusate Sodium 100 Mg Cap) 100 mg PO BID [facility] Stop: 09/09/21 20:59 Last Admin: 08/14/21 07:47 Dose: 100 mg Documented by: Enoxaparin Sodium (Enoxaparin Inj 40 Mg/0.4 Ml Syr) 40 mg SQ Q24H [facility] Stop: 09/06/21 21:59 Last Admin: 08/13/21 21:01 Dose: 40 mg Documented by: Glucagon (Glucagon For Inj 1 Mg Vial) 1 mg SQ UD PRN; Protocol PRN Reason: Hypoglycemia Protocol Stop: 09/06/21 19:52 Glucose (Glucose 10 Tabs/Tube) 4 - 8 tabs PO UD PRN; Protocol PRN Reason: Hypoglycemia Protocol Stop: 09/06/21 19:52 Glucose (Glucose 40% Gel 15 Gm Tube) 15 - 30 gm PO UD PRN; Protocol PRN Reason: Hypoglycemia Protocol Stop: 09/06/21 19:52 Guaifenesin (Guaifenesin Sugar Free 200 Mg/10 Ml Udc) 200 mg PO Q6H PRN PRN Reason: Cough Stop: 09/06/21 21:22 Last Admin: 08/07/21 22:06 Dose: 200 mg Documented by: Heparin Sodium (Beef Lung) (Heparin 10 Unit/Ml 5 Ml Flush) 5 ml FLUSH PRN PRN PRN Reason: Flush Stop: 09/13/21 14:24 Hydromorphone HCl (Hydromorphone Inj 0.5 Mg/0.5 Ml Syr) 0.5 mg IV Q3H PRN PRN Reason: Pain or Pre PT Stop: 08/24/21 17:27 Piperacillin Sod/Tazobactam (Sod 3.375 gm/ Dextrose) 115 mls @ 28.75 mls/hr IV Q8H [facility]; Protocol Stop: 09/18/21 20:29 Last Admin: 08/14/21 14:03 Dose: 28.8 mls/hr Documented by: Vancomycin HCl 1,250 mg/ (Sodium Chloride) 275 mls @ 200 mls/hr IV Q12H [facility] Stop: 09/20/21 16:59 Last Infusion: 08/14/21 06:34 Dose: Infused Documented by: Insulin Aspart (Insulin Aspart Per Unit) 0 units SC 1130,1630,2100 [facility]; Protocol Stop: 09/06/21 19:52 Last Admin: 08/14/21 12:21 Dose: 7 units Documented by: Insulin Aspart (Insulin Aspart Per Unit) 0 units SC 0730 [facility]; Protocol Stop: 09/13/21 07:29 Last Admin: 08/14/21 07:49 Dose: 13 units Documented by: Insulin Human NPH (Insulin Human Nph) 15 units SC BIDM [facility]; Protocol Stop: 09/07/21 08:59 Last Admin: 08/14/21 07:49 Dose: 15 units Documented by: Lisinopril (Lisinopril 5 Mg Tab) 5 mg PO QAM [facility] Stop: 09/07/21 08:59 Last Admin: 08/14/21 07:45 Dose: 5 mg Documented by: Magnesium Hydroxide (Magnesium Hydroxide Susp 30 Ml Udc) 30 ml PO Q12H PRN PRN Reason: Constipation Stop: 09/06/21 19:52 Magnesium Hydroxide (Magnesium Hydroxide Susp 30 Ml Udc) 30 ml PO Q6H PRN PRN Reason: Constipation Stop: 09/09/21 17:27 Metoclopramide HCl (Metoclopramide Hcl Inj 5 Mg/Ml 2 Ml Vial) 10 mg IV Q6H PRN PRN Reason: Nausea And Vomiting Stop: 09/09/21 17:27 Metoprolol Succinate (Metoprolol Succ 25mg Ext Rel Tab) [facility] Stop: 09/07/21 08:59 Last Admin: 08/14/21 07:45 Dose: 25 mg Documented by: Miscellaneous (Carbohydrates For Hypoglycemia ) 15 - 30 gm PO UD PRN PRN Reason: Hypoglycemia Protocol Stop: 09/06/21 19:52 Miscellaneous Information (Pharmacy Glycemic Mgmt Consult) 1 ea N/A UD PRN; Protocol PRN Reason: Consult Stop: 09/06/21 19:52 Miscellaneous Information (Vancomycin Consult Active) 1 ea N/A UD PRN PRN Reason: Consult Stop: 09/06/21 19:52 Miscellaneous Information (Piperacill/Tazobac Consult Active) 1 ea N/A UD PRN PRN Reason: Consult Stop: 09/06/21 19:52 Multivitamins (Multivitamin Tab) 1 tab PO [facility] Stop: 09/10/21 08:59 Last Admin: 08/14/21 07:45 Dose: 1 tab Documented by: Naloxone HCl (Naloxone Hcl 0.4 Mg/1 Ml Vial/Carp) 0.1 mg IV Q5M PRN PRN Reason: Oversedation/Resp Depression Stop: 09/09/21 17:27 Ondansetron HCl (Ondansetron Inj 2 Mg/Ml 2 Ml Vial) 4 mg IV Q6H PRN PRN Reason: Nausea Stop: 09/06/21 19:52 Ondansetron HCl (Ondansetron Inj 2 Mg/Ml 2 Ml Vial) 4 mg IV Q6H PRN PRN Reason: Nausea And Vomiting Stop: 09/09/21 17:27 Oxycodone HCl (Oxycodone Hcl Ir 5 Mg Tab (Immediate Release)) 5 - 10 mg PO Q4H PRN PRN Reason: Pain or Pre PT Stop: 08/24/21 17:27 Polyethylene Glycol (Polyethylene (Miralax) 17 Gm Pack) 17 gm PO DAILY PRN PRN Reason: Constipation Stop: 09/06/21 19:52 Sennosides (Senna 8.6 Mg Tab) 17.2 mg PO HS [facility] Stop: 09/09/21 20:59 Last Admin: 08/14/21 07:45 Dose: 17.2 mg Documented by: (1) Diabetic ulcer of right heel Diabetes mellitus type: other specified (including TEVIN) Non-pressure ulcer stage: unspecified non-pressure ulcer stage Qualified Code(s): E13.621 - Other specified diabetes mellitus with foot ulcer; L97.419 - Non-pressure chronic ul cer of right heel and midfoot with unspecified severity (2) CAD (coronary artery disease) Coronary Disease-Associated Artery/Lesion type: [place] artery [place] vs. transplanted heart: [place] heart Associated angina: without angina Qualified Code(s): I25.10 - Atherosclerotic heart disease of [place] coronary artery without angina pectoris
[2021-08-14] MEDS: ENOXAPARIN INJ 40 MG/0.4 ML SYR SQ SCH (20:11)
[2021-08-15] MEDS: VANCOMYCIN HCL 1,250 MG in SODIUM CHLORIDE 0.9% 250 ML IV SCH (05:36)
[2021-08-15] MEDS: PIPERACILLIN/TAZOBACTAM 3.375 GM in DEXTROSE 5% 100 ML IV SCH ×3 (05:36→21:10)
[2021-08-15 06:34] LABS: Basophils # (auto) 0.03 K/uL (0-0.2); Basophils % (auto) 0.6 %; Eosinophils # (auto) 0.37 K/uL (0-0.5); Hematocrit (blood only) 30.1 % (42-52); Hemoglobin 10.5 g/dL (14.0-18.0); Immature Granulocytes # (auto) 0.04 K/uL (0.00-0.02); Immature Granulocytes % (auto) 0.8 %; Lymphocytes # (auto) 1.39 K/uL (1.2-3.4); Lymphocytes % (auto) 26.2 %; Mean Corpuscular Hemoglobin 28.9 pg (25-34); Mean Corpuscular Hgb Conc 34.9 g/dL (32-36); Mean Corpuscular Volume 82.9 fL (80-100); Mean Platelet Volume 8.9 fL (7.4-10.4); Monocytes # (auto) 0.48 K/uL (0.11-0.59); Monocytes % (auto) 9.1 %; Neutrophils # (auto) 2.99 K/uL (1.4-6.5); Neutrophils % (auto) 56.3 %; Platelet Count 199 K/uL (130-400); RDW Coefficient of Variation 12.5 % (11.5-14.5); RDW Standard Deviation 38.1 fL (36.4-46.3); Red Blood Count 3.63 M/uL (4.7-6.1)
[2021-08-15 06:41] LABS: Albumin Globulin Ratio 0.9 (0.9-2); Albumin Level 3.3 gm/dl (3.4-5.0); BUN Creatinine Ratio 21.5 (10-20); Bilirubin,Total 0.3 mg/dl (0.2-1.0); Creatinine Clr Calc Pharmacy 70.3 ml/min; Est GFR (African American) 72.4 ml/min; Est GFR (Non-African American) 62.4 ml/min; Globulin 3.8 gm/dl (2.5-4.0); Potassium 4.1 mmol/L (3.5-5.1); Total Protein 7.1 gm/dl (6.0-8.3)
[2021-08-15] MEDS: lisinopril 5 MG TAB PO SCH (07:47)
[2021-08-15] MEDS: MULTIVITAMIN TAB PO SCH (07:47)
[2021-08-15] MEDS: METOPROLOL SUCC 25MG EXT REL TAB PO SCH (07:47)
[2021-08-15] MEDS: ASPIRIN 81 MG ECTAB PO SCH (07:47)
[2021-08-15] MEDS: DOCUSATE SODIUM 100 MG CAP PO SCH ×2 (07:47→21:14)
[2021-08-15] MEDS: ATORVASTATIN 40 MG TAB PO SCH (07:47)
[2021-08-15] MEDS: INSULIN HUMAN NPH SC SCH ×2 (07:47→17:17)
[2021-08-15] MEDS: INSULIN ASPART PER UNIT SC SCH ×4 (07:48→21:13)
--- NOTE | 2021-08-15 13:24 | Hospitalist Progress Note ---
Date of Service August 15, 2021 Assessment & Plan (1) Diabetic ulcer of right heel: Plan: This is a 66-year-old male who has significant past medical history of insulin- dependent T2DM, diabetic neuropathy, CAD with history of CABG x4, HTN, HLD, alcohol abuse, history of R calcaneal osteomyelitis who presents to ED due to worsening right heel ulcer x1 month. Pt with hx of R heel OM in past requiring debridement and 6 weeks of IV antibiotics in 01/2021. Cultures at that time grew Staph aureus, prevotella melaninogenica and bivia. Wound culture in february after repeat debridement grew pseudomonas He stopped follow up with [facility] in May and subsequently heel ulcer gradually worsened. Diabetic ulcer of right heel osteomyelitis hx of Chronic R heel Osteomyelitis MRI of the Rt Ankle: IMPRESSION: 1. There is a large cutaneous defect/wound identified along the lateral aspect of the heel. Complex material within this wound may represent surgical packing and clinical correlation will be essential. 2. There is marked marrow edema throughout the calcaneus with erosive change along the dorsal and plantar aspect of the bone deep to the cutaneous defect. The appearance is typical for osteomyelitis and clinical correlation will be required. 3. There is evidence of significant surrounding cellulitis. No organized fluid collection is clearly seen to indicate abscess. 4. There is likely disruption of the lateral bundle of the plantar fascia at the calcaneal attachment. 5. There is marked thickening and tendinopathy of the Achilles tendon with partial thickness tearing. 6. There is a split tear of the peroneus brevis tendon with tenosynovitis of the peroneal tendons. Consult vascular per request of orthopedics Blood cultures ordered-remain negative continue IV antibiotics with vancomycin and zosyn Appreciate Ortho input and recommendation Denies any symptoms-right heel wound is pictured in the system Status post right irrigation and debridement of heel ulcer with calcaneal curettaged on 08/10/2021 Continue management as per Ortho We will continue current antibiotics with vancomycin and Zosyn Gram stain of the biopsies showing scanty growth of bacteria and has been reincubating Pathology result is not back yet. In any case he will likely need 6 weeks of intravenous antibiotic We will get an ID evaluation for antibiotic choice and duration Appreciate ID input and recommendation-continue current antibiotic for now and will require up to 6 weeks of IV antibiotic Await further identification of the Gram stain and culture-bone biopsy confirmed to be acute osteomyelitis PICC line is placed for abx infusion on discharge (2) T2DM (type 2 diabetes mellitus): Plan: T2DM with hyperglycemia a1c 6.7 02/2021, will repeat in a.m. On NPH N as outpt consult glycemic pharmacy, appreciate their assistance Blood sugar remains stable (3) CAD (coronary artery disease): Plan: CAD (coronary artery disease): H/O CABG in 2003 EKG ordered, no c/o CP or SOB ECHO 07/23/2019 which revealed EF 55 to 60% Continue ASA, atorvastatin, lisinopril and metoprolol Denies any cardiac symptoms (4) Hypertension: Plan: HTN pt bp elevated in ED, did not take home meds give lisinopril and metoprolol now and re evaluate Blood pressure remains on the upper side of normal at 142/83 Plan: Anemia Normocytic anemia Hemoglobin is 12.5 Likely secondary to chronic disease in setting of chronic osteomyelitis Hx of ETOH abuse drinks 4-6 beers nightly, last was 1 week ago DVT ppx: Lovenox, will need held prior to procedure Dispo: Will discharge once medically stable PCP: Dr. Johnson FULL CODE Admission and Anticipated Discharge Date Admission Date: August 07, 2021 Subjective Patient was seen and examined for follow-up of right foot osteomyelitis lying in bed no acute distress patient said that he feels fine denies any chest pain, palpitation, dizziness, shortness of breath. Review of Systems Review of Systems: All systems reviewed & are unremarkable except as noted in Subjective Physical Exam Physical Exam: General- No acute distress Head- atraumatic Eyes- PERRL, EOMI, ENT- oropharynx clear Neck- supple, no JVD Lungs- clear to auscultation Heart- regular rhythm; no murmur Abdomen- normal bowel sounds, soft, nontender Extremities- no neck tenderness, +Right foot wrapped with dressing Neuro- alert, oriented x 3; PERRL, EOMI; no facial palsy; no dysarthria Skin- warm & dry Results & Data Results & Data ([facility]) Vital Signs (Past 12 Hours) Vital Signs Temp Pulse Resp BP Pulse Ox 08/15/21 10:56 36.7 C 74 16 129/74 97 08/15/21 07:03 36.5 C 62 20 124/74 98 08/15/21 04:00 36.4 C L 65 20 129/72 96 (1) CAD (coronary artery disease) Associated angina: without angina Coronary Disease-Associated Artery/Lesion type: [place] artery [place] vs. transplanted heart: [place] heart Qualified Code(s): I25.10 - Atherosclerotic heart disease of [place] coronary artery without angina pectoris (2) Diabetic ulcer of right heel Diabetes mellitus type: other specified (including TEVIN) Non-pressure ulcer stage: unspecified non-pressure ulcer stage Qualified Code(s): E13.621 - Other specified diabetes mellitus with foot ulcer; L97.419 - Non-pressure chronic ulcer of right heel and midfoot with unspecified severity
[2021-08-15] MEDS ORDERED: VANCOMYCIN TROUGH ONE (16:30)
--- NOTE | 2021-08-15 18:35 | Pharmacy Report ---
Pharmacy Abx Dose Short Note - Date of Service August 15, 2021 - Assessment & Plan Assessment 66 year old M receiving vancomycin and Zosyn for treatment of diabetic foot ulcer (right heel). POD #5 s/p right heel irrigation/debridement. Pertinent microbiologic data includes: blood cultures x 2 (08/07) no growth, right foot growing bacteroides. Day # 9 of antimicrobial therapy, likely to require 6 weeks of treatment. Renal fxn fairly stable this admission, however trending higher than prior admission. Plan Vancomycin * Trough level of 15.8 mcg/mL is therapeutic. and is consistent with achieving goal AUC:BRUCE of 400-600, however it does carry a 13% risk of nephrotoxicity and 15% risk of supratherapeutic trough level. Given extended duration of therapy, will reduce dose to 1000mg IV Q 12 hrs in order to maintain same AUC:BRUCE goal with 9% risk of nephrotoxicity and almost 0% risk of supratherapeutic trough. * Repeat level will be checked in 2 days. Pharmacy will continue to follow and will adjust dose/frequency as necessary. Thank you.
[2021-08-15] MEDS: VANCOMYCIN HCL 1,000 MG in SODIUM CHLORIDE 0.9% 250 ML IV SCH (19:39)
[2021-08-15] MEDS: ENOXAPARIN INJ 40 MG/0.4 ML SYR SQ SCH (21:14)
[2021-08-15] MEDS: SENNA 8.6 MG TAB PO SCH (21:14)
[2021-08-16] MEDS: PIPERACILLIN/TAZOBACTAM 3.375 GM in DEXTROSE 5% 100 ML IV SCH ×3 (05:11→22:30)
[2021-08-16 07:49] LABS: Creatinine Clr Calc Pharmacy 72.2 ml/min; Est GFR (African American) 74.6 ml/min; Est GFR (Non-African American) 64.4 ml/min
[2021-08-16] MEDS: VANCOMYCIN HCL 1,000 MG in SODIUM CHLORIDE 0.9% 250 ML IV SCH (07:52)
[2021-08-16] MEDS: INSULIN HUMAN NPH SC SCH ×2 (07:53→17:13)
[2021-08-16] MEDS: MULTIVITAMIN TAB PO SCH (07:53)
[2021-08-16] MEDS: ASPIRIN 81 MG ECTAB PO SCH (07:53)
[2021-08-16] MEDS: METOPROLOL SUCC 25MG EXT REL TAB PO SCH (07:53)
[2021-08-16] MEDS: lisinopril 5 MG TAB PO SCH (07:53)
[2021-08-16] MEDS: DOCUSATE SODIUM 100 MG CAP PO SCH ×2 (07:53→21:40)
--- NOTE | 2021-08-16 07:56 | Pharmacy Report ---
Pharmacy Glycemic Short Note 2 - Date of Service August 16, 2021 - Glycemic Short BSG Results (Last 24 hours): 08/15/21 08/15/21 08/15/21 11:23 16:29 20:01 POC Glucose 148 H 198 H 152 H 08/16/21 07:29 POC Glucose 123 H OUTPATIENT ANTIDIABETIC REGIMEN: * NPH 20 units SC BID * HbA1c: 7.8% (08/08/21) ASSESSMENT: 08/16 * Blood sugars adequately controlled, CR tightened further at breakfast yesterday with better glycemic control throughout the day, no further changes at this time * Continues on vancomycin/Zosyn for diabetic foot infection 08/13 * BSGs consistently elevated at lunchtime, will tighten AM NovoLog starting tomorrow morning * BSGs otherwise WNL, continue current NPH and NovoLog with lunch, dinner, HS * Continues on vancomycin/Zosyn for diabetic foot infection 08/10 * Pt is going to the OR today for I&D, possible osteotomy R heel. * NPH dose reduced this morning while pt is NPO. * Will aim for tight glycemic control post-op to facilitate wound/infection healing. 08/08 * 66 yo M admitted secondary to diabetic foot ulcer and possible osteomyelitis. Pharmacy has been consulted to assist with inpatient glycemic management. Patient is ordered a T2DM diet for now. Unsure if there are plans for surgery at this time. * Admission BSG was 143 mg/dL last evening. Patient received 10 units of NPH and 5 units of Novolog at that time. * Fasting BSG was 156 mg/dL this AM. Will start NPH at 75% of home dose. * Lunch BSG did increase to 180 mg/dL at lunch today so tightened carb ratio slightly from admission. Targeting a goal of 110-140 mg/dL to promote wound healing and help prevent infection. PLAN FOR INPATIENT GLYCEMIC CONTROL: * Basal insulin * NPH 15 units SC BIDM * Bolus insulin * NovoLog per scale ACHS or Q6hrs while NPO * Goal Range: Low 110 mg/dL - High 140 mg/dL * Correction Factor: 25 mg/dL/unit (20 mg/dL/unit with breakfast) * Nutritional / Prandial insulin per carb ratio of 1 unit per 8 grams CHO co nsumed (1 unit per 5 grams CHO consumed with breakfast) PLAN FOR DISCHARGE: * A1c: 7.8% * This indicates reasonable, but slightly suboptimal glycemic control in a 66yo patient. Would prefer A1c closer to 7%, especially in the setting of recurrent infections and now post-operatively. * Per personal development educator note, home BSGs values are reasonable * Okay to continue current home regimen, ensure prompt follow-up with outpatient provider for further insulin dose adjustments
[2021-08-16] MEDS: INSULIN ASPART PER UNIT SC SCH ×4 (07:58→21:59)
[2021-08-16] MEDS: ATORVASTATIN 40 MG TAB PO SCH (09:27)
--- NOTE | 2021-08-16 18:54 | Hospitalist Progress Note ---
Date of Service August 16, 2021 Assessment & Plan (1) Diabetic ulcer of right heel: Plan: This is a 66-year-old male who has significant past medical history of insulin- dependent T2DM, diabetic neuropathy, CAD with history of CABG x4, HTN, HLD, alcohol abuse, history of R calcaneal osteomyelitis who presents to ED due to worsening right heel ulcer x1 month. Pt with hx of R heel OM in past requiring debridement and 6 weeks of IV antibiotics in 01/2021. Cultures at that time grew Staph aureus, prevotella melaninogenica and bivia. Wound culture in february after repeat debridement grew pseudomonas He stopped follow up with [facility] in May and subsequently heel ulcer gradually worsened. Diabetic ulcer of right heel osteomyelitis hx of Chronic R heel Osteomyelitis MRI of the Rt Ankle: IMPRESSION: 1. There is a large cutaneous defect/wound identified along the lateral aspect of the heel. Complex material within this wound may represent surgical packing and clinical correlation will be essential. 2. There is marked marrow edema throughout the calcaneus with erosive change along the dorsal and plantar aspect of the bone deep to the cutaneous defect. The appearance is typical for osteomyelitis and clinical correlation will be required. 3. There is evidence of significant surrounding cellulitis. No organized fluid collection is clearly seen to indicate abscess. 4. There is likely disruption of the lateral bundle of the plantar fascia at the calcaneal attachment. 5. There is marked thickening and tendinopathy of the Achilles tendon with partial thickness tearing. 6. There is a split tear of the peroneus brevis tendon with tenosynovitis of the peroneal tendons. Consult vascular per request of orthopedics Blood cultures ordered-remain negative continue IV antibiotics with vancomycin and zosyn Appreciate Ortho input and recommendation Denies any symptoms-right heel wound is pictured in the system Status post right irrigation and debridement of heel ulcer with calcaneal curettaged on 08/10/2021 Continue management as per Ortho We will continue current antibiotics with vancomycin and Zosyn Gram stain of the biopsies showing scanty growth of bacteria and has been reincubating Pathology result is not back yet. In any case he will likely need 6 weeks of intravenous antibiotic We will get an ID evaluation for antibiotic choice and duration Appreciate ID input and recommendation-continue current antibiotic for now and will require up to 6 weeks of IV antibiotic Await further identification of the Gram stain and culture-bone biopsy confirmed to be acute osteomyelitis PICC line is placed for abx infusion on discharge Case discussed with ID about the final wound cx that grew bacteroides caccae ID recommended to d/c IV Vanco and continue IV zosyn to complete 6 weeks course Script given to case management for the IV Zosyn Will check ESR, CMP and CBC weekly while on IV Zosyn (2) T2DM (type 2 diabetes mellitus): Plan: T2DM with hyperglycemia a1c 6.7 02/2021, will repeat in a.m. On NPH N as outpt consult glycemic pharmacy, appreciate their assistance Blood sugar remains stable (3) CAD (coronary artery disease): Plan: CAD (coronary artery disease): H/O CABG in 2003 EKG ordered, no c/o CP or SOB ECHO 07/23/2019 which revealed EF 55 to 60% Continue ASA, atorvastatin, lisinopril and metoprolol Denies any cardiac symptoms (4) Hypertension: Plan: BP stable continue current med Plan: Anemia Normocytic anemia Hemoglobin is 12.5 Likely secondary to chronic disease in setting of chronic osteomyelitis Hx of ETOH abuse Counseling on alcohol cessation DVT ppx: Lovenox Dispo: Plan to discharge home tomorrow FULL CODE Admission and Anticipated Discharge Date Admission Date: August 07, 2021 Subjective Patient was seen and examined for follow-up of right foot osteomyelitis lying in bed no acute distress denies any chest pain, palpitation, dizziness, shortness of breath. Review of Systems Review of Systems: All systems reviewed & are unremarkable except as noted in Subjective Physical Exam Physical Exam: General- No acute distress Head- atraumatic Eyes- PERRL, EOMI, ENT- oropharynx clear Neck- supple, no JVD Lungs- clear to auscultation Heart- regular rhythm; no murmur Abdomen- normal bowel sounds, soft, nontender Extremities- no neck tenderness, +Right foot wrapped with dressing Neuro- alert, oriented x 3; PERRL, EOMI; no facial palsy; no dysarthria Skin- warm & dry Results & Data Results & Data ([facility]) Vital Signs (Past 12 Hours) Vital Signs Temp Pulse Pulse Resp BP BP Pulse Ox 08/16/21 16:02 87 08/16/21 15:42 36.7 C 76 18 138/75 97 08/16/21 11:43 36.6 C 69 18 138/73 96 08/16/21 10:55 68 08/16/21 07:52 36.4 C L 71 16 132/76 96 (1) Diabetic ulcer of right heel Diabetes mellitus type: other specified (including TEVIN) Non-pressure ulcer stage: unspecified non-pressure ulcer stage Qualified Code(s): E13.621 - Other specified diabetes mellitus with foot ulcer; L97.419 - Non-pressure chronic ulcer of right heel and midfoot with unspecified severity (2) CAD (coronary artery disease) Coronary Disease-Associated Artery/Lesion type: [place] artery [place] vs. transplanted heart: [place] heart Associated angina: without angina Qualified Code(s): I25.10 - Atherosclerotic heart disease of [place] coronary artery without angina pectoris
--- NOTE | 2021-08-16 18:58 | Hospitalist Progress Note ---
Date of Service August 16, 2021 Assessment & Plan (1) Diabetic ulcer of right heel: Plan: This is a 66-year-old male who has significant past medical history of insulin- dependent T2DM, diabetic neuropathy, CAD with history of CABG x4, HTN, HLD, alcohol abuse, history of R calcaneal osteomyelitis who presents to ED due to worsening right heel ulcer x1 month. Pt with hx of R heel OM in past requiring debridement and 6 weeks of IV antibiotics in 01/2021. Cultures at that time grew Staph aureus, prevotella melaninogenica and bivia. Wound culture in february after repeat debridement grew pseudomonas He stopped follow up with [facility] in May and subsequently heel ulcer gradually worsened. Diabetic ulcer of right heel osteomyelitis hx of Chronic R heel Osteomyelitis MRI of the Rt Ankle: IMPRESSION: 1. There is a large cutaneous defect/wound identified along the lateral aspect of the heel. Complex material within this wound may represent surgical packing and clinical correlation will be essential. 2. There is marked marrow edema throughout the calcaneus with erosive change along the dorsal and plantar aspect of the bone deep to the cutaneous defect. The appearance is typical for osteomyelitis and clinical correlation will be required. 3. There is evidence of significant surrounding cellulitis. No organized fluid collection is clearly seen to indicate abscess. 4. There is likely disruption of the lateral bundle of the plantar fascia at the calcaneal attachment. 5. There is marked thickening and tendinopathy of the Achilles tendon with partial thickness tearing. 6. There is a split tear of the peroneus brevis tendon with tenosynovitis of the peroneal tendons. Consult vascular per request of orthopedics Blood cultures ordered-remain negative continue IV antibiotics with vancomycin and zosyn Appreciate Ortho input and recommendation Denies any symptoms-right heel wound is pictured in the system Status post right irrigation and debridement of heel ulcer with calcaneal curettaged on 08/10/2021 Continue management as per Ortho We will continue current antibiotics with vancomycin and Zosyn Gram stain of the biopsies showing scanty growth of bacteria and has been reincubating Pathology result is not back yet. In any case he will likely need 6 weeks of intravenous antibiotic We will get an ID evaluation for antibiotic choice and duration Appreciate ID input and recommendation-continue current antibiotic for now and will require up to 6 weeks of IV antibiotic Await further identification of the Gram stain and culture-bone biopsy confirmed to be acute osteomyelitis PICC line is placed for abx infusion on discharge Case discussed with ID about the final wound cx that grew bacteroides caccae ID recommended to d/c IV Vanco and continue IV zosyn to complete 6 weeks course Script given to case management for the IV Zosyn Will check ESR, CMP and CBC weekly while on IV Zosyn (2) T2DM (type 2 diabetes mellitus): Plan: T2DM with hyperglycemia a1c 6.7 02/2021, will repeat in a.m. On NPH N as outpt consult glycemic pharmacy, appreciate their assistance Blood sugar remains stable (3) CAD (coronary artery disease): Plan: CAD (coronary artery disease): H/O CABG in 2003 EKG ordered, no c/o CP or SOB ECHO 07/23/2019 which revealed EF 55 to 60% Continue ASA, atorvastatin, lisinopril and metoprolol Denies any cardiac symptoms (4) Hypertension: Plan: BP stable continue current med Plan: Anemia Normocytic anemia Hemoglobin is 12.5 Likely secondary to chronic disease in setting of chronic osteomyelitis Hx of ETOH abuse Counseling on alcohol cessation DVT ppx: Lovenox Dispo: Plan to discharge home tomorrow FULL CODE Admission and Anticipated Discharge Date Admission Date: August 07, 2021 Subjective Patient was seen and examined for follow-up of right foot osteomyelitis Lying in bed with no acute distress denies any chest pain, palpitation, dizziness, shortness of breath. Review of Systems Review of Systems: All systems reviewed & are unremarkable except as noted in Subjective Physical Exam Physical Exam: General- No acute distress Head- atraumatic Eyes- PERRL, EOMI, ENT- oropharynx clear Neck- supple, no JVD Lungs- clear to auscultation Heart- regular rhythm; no murmur Abdomen- normal bowel sounds, soft, nontender Extremities- no neck tenderness, +Right foot wrapped with dressing Neuro- alert, oriented x 3; PERRL, EOMI; no facial palsy; no dysarthria Skin- warm & dry Results & Data Results & Data ([facility]) Vital Signs (Past 12 Hours) Vital Signs Temp Pulse Pulse Resp BP BP Pulse Ox 08/16/21 16:02 87 08/16/21 15:42 36.7 C 76 18 138/75 97 08/16/21 11:43 36.6 C 69 18 138/73 96 08/16/21 10:55 68 08/16/21 07:52 36.4 C L 71 16 132/76 96 (1) Diabetic ulcer of right heel Diabetes mellitus type: other specified (including TEVIN) Non-pressure ulcer stage: unspecified non-pressure ulcer stage Qualified Code(s): E13.621 - Other specified diabetes mellitus with foot ulcer; L97.419 - Non-pressure chronic ulcer of right heel and midfoot with unspecified severity (2) CAD (coronary artery disease) Coronary Disease-Associated Artery/Lesion type: [place] artery [place] vs. transplanted heart: [place] heart Associated angina: without angina Qualified Code(s): I25.10 - Atherosclerotic heart disease of [place] coronary artery without angina pectoris
[2021-08-16] MEDS: ENOXAPARIN INJ 40 MG/0.4 ML SYR SQ SCH (21:39)
[2021-08-16] MEDS: SENNA 8.6 MG TAB PO SCH (21:40)
[2021-08-17] MEDS ORDERED: VANCOMYCIN TROUGH ONE (06:30)
[2021-08-17] MEDS: PIPERACILLIN/TAZOBACTAM 3.375 GM in DEXTROSE 5% 100 ML IV SCH (08:14)
[2021-08-17] MEDS: ASPIRIN 81 MG ECTAB PO SCH (08:16)
[2021-08-17] MEDS: ATORVASTATIN 40 MG TAB PO SCH (08:16)
[2021-08-17] MEDS: METOPROLOL SUCC 25MG EXT REL TAB PO SCH (08:16)
[2021-08-17] MEDS: DOCUSATE SODIUM 100 MG CAP PO SCH (08:16)
[2021-08-17] MEDS: MULTIVITAMIN TAB PO SCH (08:17)
[2021-08-17] MEDS: lisinopril 5 MG TAB PO SCH (08:17)
[2021-08-17] MEDS: INSULIN ASPART PER UNIT SC SCH ×2 (08:22→11:40)
[2021-08-17] MEDS: INSULIN HUMAN NPH SC SCH (08:22)
--- NOTE | 2021-08-17 11:43 | Discharge Summary ---
Date of Service August 17, 2021 Admission HPI Per Admitting Provider This is a 66-year-old male who has significant past medical history of insulin- dependent T2DM, diabetic neuropathy, CAD with history of CABG x4, HTN, HLD, alcohol abuse, history of Right calcaneal osteomyelitis who presents to ED due to worsening right heel ulcer x1 month. He previously had been seen and followed by Dr. Moeller of [facility]; however, stopped following up in May. He states his right heel wound was almost healed. He has noted over the past month worsening of his right heel wound. Due to neuropathy he has no feeling of pain to his bilateral feet. He has noticed increased bloody drainage as well as foul- smelling coming from his right heel wound. He was not seen by outside provider recently for this. He lives at home with his . He denies any recent fever, chills, sweats, lightheadedness, dizziness, chest pain, shortness of breath, nausea, vomiting, abdominal pain, change in bowel or urinary habits, melena or hematochezia. His appetite has been normal and he denies any weight loss. He sta kacey he stopped taking gabapentin due to losing feeling in feet bilaterally as well as Metformin due to it not working. He did not take his medications today. He was hospitalized in January of 2021 due to similar wound with osteomyelitis. Cultures at that time grew staph aureus, Provotella, Corynebacterium. Also hx of pseudomonas wound culture from February 2021. He required 6 wks of IV antibiotics. Admission Exam Per Admitting Provider Constitutional: WD/WN, vitals as above, NAD, sitting up in bed, pleasant, conversing easily Head: Normocephalic, Atraumatic Eyes: PERRL, conjunctivae normal, anicteric sclerae ENMT: external ear and nose normal, oropharynx normal Neck: trachea midline, no thyromegaly normal visual inspection Respiratory: normal respiratory effort, lungs clear to auscultation, no wheeze, rales, rhonchi. Normal insp/exp effort, no accessory muscle use Cardiovascular: RRR, no murmur, no edema Vessels: no JVD or carotid bruit Chest: normal inspection of chest Abdomen: normal bowel sounds, soft, nontender, no hepatosplenomegaly Musculoskeletal: no cyanosis or clubbing, extremities motor strength 5/5, b/l pedal pulse +2 and equal, R calcaneal wound noted, large, tracking through skin, fat, muscle down to bone, with surrounding skin maceration but not erythema,no drainage noted, foul smelling Skin: no rashes, warm and dry normal turgor Neurologic: PERRL, EOMI, accommodation nl, no face palsy, no dysarthria CN's II-XI intact bilaterally and moves all extremities Psychiatric: A+Ox3, euthymic affect Lymphatic: no cervical or axillary lymphadenopathy : deferred Principal Diagnosis Diabetic ulcer of right heel T2DM (type 2 diabetes mellitus): CAD (coronary artery disease): Hypertension: Discharge Exam General- No acute distress Head- atraumatic Eyes- PERRL, EOMI, ENT- oropharynx clear Neck- supple, no JVD Lungs- clear to auscultation Heart- regular rhythm; no murmur Abdomen- normal bowel sounds, soft, nontender Extremities- no neck tenderness, +Right foot wrapped with dressing Neuro- alert, oriented x 3; PERRL, EOMI; no facial palsy; no dysarthria Skin- warm & dry Discharge Data Allergies Allergy/AdvReac Type Severity Reaction Status Date / Time No Known Allergies Allergy Verified 08/07/21 14:57 Consultations 08/07/21 14:14 ED Decision to Admit Stat 08/07/21 14:16 Consult Orthopedic Surgery Stat 08/13/21 10:04 Consult Infectious Diseases Routine Procedures Performed Operation Date: 08/10/21 14:15 Actual Procedures p Right Irrigation and Debridement Heel Ulcer with Calcaneal Curettage, wound measuring 2.8cm deep x 3.4cm x 1.4cm per surgeon.(Right) - Marcos Moeller DO Ordered Studies 08/07/21 14:54 MR ankle RT wo con Routine 08/07/21 15:39 US arterial duplex LE RT Routine XR chest 1V portable HISTORY: cough COMPARISON: Chest 01/16/2021. FINDINGS: No pneumothorax. No pleural effusions. There are low lung volumes. The heart is borderline enlarged. This remains unchanged. There are poststernotomy changes. No new focal lung consolidations to suggest pneumonia. No evidence for pulmonary edema. IMPRESSION: No focal lung consolidations to suggest pneumonia. ACT 112: Negative or not required by law. Electronically signed by: Scar Calvert M.D. 08/08/2021 7:55 AM Dictated:08/08/21 0753 Transcribed: 08/08/21 0753 ULTRASOUND RIGHT LOWER EXTREMITY ARTERIAL CLINICAL HISTORY: Diminished lower extremity pulses. COMPARISON STUDY: Doppler arterial ultrasound of the right lower extremity dated 05/16/2020. TECHNIQUE: Real-time grayscale and color Doppler sonography of the arteries of the right lower extremity is performed from the inguinal crease to the foot. FINDINGS: Atherosclerotic plaque and irregularity seen throughout the arteries of the right lower extremity. There are triphasic waveforms in the common femoral artery with velocities measuring up to 115 cm/s. The profunda femoris artery is patent with velocities measuring up to 96 cm/s. Triphasic waveforms are seen throughout the superficial femoral and popliteal arteries. Velocities in superficial femoral artery measure up to 173 cm/s and velocities in the popliteal artery measure up to 152 cm/s. There is three-vessel runoff to the foot. Velocities within the calf arteries measure up to 166 cm/s. The dorsalis pedis artery is patent with velocities measuring up to 83 cm second. IMPRESSION: There is no sonographic evidence of high-grade stenosis or focal vessel cutoff throughout the arteries of the right lower extremity. Dictated: 08/07/2021 5:34 PM Transcribed: 08/07/2021 5:48 PM Nancy [id number] [facility] Electronically signed by: Ochoa Ramey M.D. 08/07/2021 6:01 PM Dictated:08/07/21 1734 Transcribed: 08/07/21 1748 MRI OF THE RIGHT ANKLE WITHOUT IV CONTRAST CLINICAL HISTORY: Heel ulceration. COMPARISON STUDY: CT scan of the right foot dated 01/10/2021. Radiographs of the right calcaneus dated 08/07/2021. MRI of the right ankle dated 08/22/2020. TECHNIQUE: MRI of the right ankle is performed utilizing various T1 and T2- weighted sequences in the axial, sagittal, and coronal planes. IV contrast was not administered for this examination. The examination is compromised by motion artifact. FINDINGS: There is a large cutaneous ulceration along the lateral aspect of the dorsal heel. This is filled with complex material which may represent surgical packing. There is marked marrow edema identified throughout the calcaneus. Erosive change is seen along the dorsal and plantar aspect of the calcaneus deep to the cutaneous defect. Findings are typical for osteomyelitis. Micrometallic artifact within the anterior calcaneus is likely related to previous surgery. No similar appearing marrow changes identified throughout the remainder of the ankle. The ankle mortise is intact. There is no osteochondral defect in the talar dome. There is no ankle joint effusion. Normal fat is maintained within the sinus tarsi. There is marked thickening and tendinopathy of the Achilles tendon with partial thickness tearing. No full-thickness rupture is seen. Disruption of the medial fibers of the Achilles tendon is seen on axial image #3. The anterior tibiofibular and talofibular ligament appear intact. There is a split tear of the peroneus brevis tendon. The anterior and posterior tendons appear intact. There is likely disruption of the lateral band of the plantar fascia at the calcaneal attachment. There is tenosynovitis of the peroneal tendons. The medial band appears intact. Significant soft tissue edema is present around the ankle and hindfoot, typical for cellulitis. No organized fluid collection is seen to suggest abscess. Generalized atrophy is noted in the regional musculature. Nonspecific edema is noted throughout Kagers fat pad. IMPRESSION: 1. There is a large cutaneous defect/wound identified along the lateral aspect of the heel. Complex material within this wound may represent surgical packing and clinical correlation will be essential. 2. There is marked marrow edema throughout the calcaneus with erosive change along the dorsal and plantar aspect of the bone deep to the cutaneous defect. The appearance is typical for osteomyelitis and clinical correlation will be required. 3. There is evidence of significant surrounding cellulitis. No organized fluid collection is clearly seen to indicate abscess. 4. There is likely disruption of the lateral bundle of the plantar fascia at the calcaneal attachment. 5. There is marked thickening and tendinopathy of the Achilles tendon with partial thickness tearing. 6. There is a split tear of the peroneus brevis tendon with tenosynovitis of the peroneal tendons. Dictated: 08/07/2021 8:22 PM Transcribed: 08/07/2021 8:54 PM Nancy [id number] [facility] Electronically signed by: Ochoa Ramey M.D. 08/07/2021 8:57 PM Dictated:08/07/212021 Transcribed: 08/07/212053 XR calcaneus RT min 2V CLINICAL HISTORY: Nonhealing right heel wound. COMPARISON STUDY: 01/10/2021 TECHNIQUE: 2 right calcaneus views FINDINGS: Bones: There is no evidence for an acute fracture or dislocation. There is a small calcaneal spur at the origin of the plantar fascia. There is mild Achilles enthesopathy present. There is no lytic or blastic lesion. Joints: The joint spaces are maintained. The bones are in anatomic alignment. Soft tissues: Compared to the previous examination, there is a relatively large wound present involving the lateral aspect of the right heel. This extends deep within the soft tissues by approximately 8 mm. It measures 2.9 x 2.3 cm in size. There is no radiopaque foreign body. IMPRESSION: Relatively large soft tissue wound along the lateral aspect of the heel as described above. No definite radiographic evidence for underlying osteomyelitis. ACT 112: Negative or not required by law. Electronically signed by: Ryan Austin M.D. 08/07/2021 1:39 PM Dictated:08/07/21 1335 Transcribed: 08/07/21 1335 Hospital Course (1) Diabetic ulcer of right heel: This is a 66-year-old male who has significant past medical history of insulin-dependent T2DM, diabetic neuropathy, CAD with history of CABG x4, HTN, HLD, alcohol abuse, history of R calcaneal osteomyelitis who presents to ED due to worsening right heel ulcer x1 month. Pt with hx of R heel OM in past requiring debridement and 6 weeks of IV antibiotics in 01/2021. Cultures at that time grew Staph aureus, prevotella melaninogenica and bivia. Wound culture in february after repeat debridement grew pseudomonas He stopped follow up with [facility] in May and subsequently heel ulcer gradually worsened. Diabetic ulcer of right heel osteomyelitis hx of Chronic R heel Osteomyelitis MRI of the Rt Ankle: IMPRESSION: 1. There is a large cutaneous defect/wound identified along the lateral aspect of the heel. Complex material within this wound may represent surgical packing and clinical correlation will be essential. 2. There is marked marrow edema throughout the calcaneus with erosive change along the dorsal and plantar aspect of the bone deep to the cutaneous defect. The appearance is typical for osteomyelitis and clinical correlation will be required. 3. There is evidence of significant surrounding cellulitis. No organized fluid collection is clearly seen to indicate abscess. 4. There is likely disruption of the lateral bundle of the plantar fascia at the calcaneal attachment. 5. There is marked thickening and tendinopathy of the Achilles tendon with partial thickness tearing. 6. There is a split tear of the peroneus brevis tendon with tenosynovitis of the peroneal tendons. Consult vascular per request of orthopedics Blood cultures ordered-remain negative continue IV antibiotics with vancomycin and zosyn Appreciate Ortho input and recommendation Denies any symptoms-right heel wound is pictured in the system Status post right irrigation and debridement of heel ulcer with calcaneal curettaged on 08/10/2021 Continue management as per Ortho We will continue current antibiotics with vancomycin and Zosyn Gram stain of the biopsies showing scanty growth of bacteria and has been reincubating Pathology result is not back yet. In any case he will likely need 6 weeks of intravenous antibiotic We will get an ID evaluation for antibiotic choice and duration Appreciate ID input and recommendation-continue current antibiotic for now and will require up to 6 weeks of IV antibiotic Await further identification of the Gram stain and culture-bone biopsy confirmed to be acute osteomyelitis PICC line is placed for abx infusion on discharge Case discussed with ID about the final wound cx that grew bacteroides caccae ID recommended to d/c IV Vanco and continue IV zosyn to complete 6 weeks course Script given to case management for the IV Zosyn Will check ESR, CMP and CBC weekly while on IV Zosyn (2) T2DM (type 2 diabetes mellitus): T2DM with hyperglycemia a1c 6.7 02/2021, will repeat in a.m. On NPH N as outpt consult glycemic pharmacy, appreciate their assistance Blood sugar remains stable (3) CAD (coronary artery disease): CAD (coronary artery disease): H/O CABG in 2003 EKG ordered, no c/o CP or SOB ECHO 07/23/2019 which revealed EF 55 to 60% Continue ASA, atorvastatin, lisinopril and metoprolol Denies any cardiac symptoms (4) Hypertension: BP stable continue current med Anemia Normocytic anemia Hemoglobin is 12.5 Likely secondary to chronic disease in setting of chronic osteomyelitis Hx of ETOH abuse Counseling on alcohol cessation DVT ppx: Lovenox Dispo: Plan to discharge home tomorrow FULL CODE Total Time Total Time Spent Total Time Spent (In Minutes): 35 minutes Discharge Plan Discharge Items Patient Disposition: Home - Home Health Services Reason For Visit: R HEEL DIABETIC ULCER Discharge Diagnosis: Diabetic ulcer of right heel T2DM (type 2 diabetes mellitus): CAD (coronary artery disease): Hypertension: Activity: Resume your previous activity Weightbearing: Right non-weightbearing Non-emergency contact: Surgeon Call non-emergency contact if: your pain is not controlled, your temperature is above 101.5, your wound has increased redness and your wound has increased drainage Follow-up/Referrals: Axel Johnson MD [Primary Care Provider] - (Date & Time 08/22/2021 1:40 PM Provider Axel Johnson MD Department [facility] ) Diet: Carb Consistent or DM2 Addtl Attending Provider Instructions: Follow up with your primary care provider Dr. Johnson on 08/22/2021 @ 1:[address] [facility] Follow up with orthopedic Dr. Moeller in 2 weeks Continue physical and occupational therapy with home health Will check ESR, CMP and CBC weekly while on IV Zosyn Continue IV Zosyn to complete a total of 6 weeks course of antibiotic Continue daily wound care Fall precaution Addtl Web Machine Tender Provider Instructions: ACTIVITY RECOMMENDATIONS: Limitations: No weight bearing to affected limb at all times. SPECIAL CARE INSTRUCTIONS: * Some drainage onto the dressing is normal and is no cause for alarm. * Some swelling is natural especially after walking. * When resting, keep your foot elevated above the level of your heart. * Call [facility] if you notice: -Increased drainage -Fever over 101 degrees F -Severe constant pain * NO TUB BATHS. DO NOT SOAK WOUND. KEEP A WATERPROOF COVERING OVER THE FOOT WHILE SHOWERING. BANDAGE: * DAILY DRESSING CHANGES. * Keep bandage/cast dry at all times. FOLLOW UP VISIT WITH DR. MOELLER If appointment is not already scheduled: Please call [facility] [place] after you get home today to schedule a follow-up appointment for [address] Moeller at . Pending Studies at Discharge: No Stand-Alone Forms: My [employer], Smoking Cessation Medications and DC Order Prescriptions: New Zosyn in dextrose (iso-osm) 3.375 gram/50 mL piggyback 3.375 g IV Q8H Qty: 1200 RF: 0 Continued atorvastatin 40 mg Tablet 40 mg PO QAM Qty: 30 RF: 5 aspirin 81 mg Tablet,Delayed Release (Dr/Ec) 81 mg PO DAILY Qty: 30 RF: 5 lisinopril [Zestril] 5 mg Tablet 5 mg PO QAM Qty: 30 RF: 5 metoprolol succinate 25 mg Tablet Extended Release 24 Hr 25 mg PO QAM RF: 0 Novolin N NPH U-100 Insulin 100 unit/mL suspension 20 unit SUBCUT BID RF: 0 Discharge Orders: Discharge Order (Routine); Ordered 08/17/21 Ordered By: Manas Gabriel/Other Patient Handouts: Managing Type 2 Diabetes, Special Foot Care for Diabetes Admission Data Admit Date/Time: 08/07/21 14:54 Attending Provider: Manas Humphreys Admit Provider: Wilver Lacey Primary Care Provider: Axel Johnson Other Providers: Donald Kamara [facility] ; Wilver Lacey ; Ruy Longoria ; Raul Mahmood ; Gena Cleaning ; Ash Connelly I. ; Mati Lott II ; Patricia Watson ; Praveen Moreno ; Darell Ahmadi ; Demetria Thao Other Interventions: Discharge Summary Assessment (RN) Last Done: 08/17/21 12:03
== END 2021-08-17 12:41 | disposition home health service (06) | DRG 629 ==
LOC: ED 12:52 → 2N 14:54 → SUATTDRO 14:54 → 2N 17:45
DX: I10 Essential (primary) hypertension; Z83.3 Family history of diabetes mellitus; M86.671 Other chronic osteomyelitis, right ankle and foot; Z79.899 Other long term (current) drug therapy; I25.10 Atherosclerotic heart disease of native coronary artery without angina pectoris; E11.65 Type 2 diabetes mellitus with hyperglycemia; E78.5 Hyperlipidemia, unspecified; N28.9 Disorder of kidney and ureter, unspecified; X58.XXXA Exposure to other specified factors, initial encounter; Z87.891 Personal history of nicotine dependence; E11.69 Type 2 diabetes mellitus with other specified complication; E87.1 Hypo-osmolality and hyponatremia; L97.414 Non-pressure chronic ulcer of right heel and midfoot with necrosis of bone; Z77.22 Contact with and (suspected) exposure to environmental tobacco smoke (acute) (chronic); Z79.4 Long term (current) use of insulin; I25.2 Old myocardial infarction; D63.8 Anemia in other chronic diseases classified elsewhere; S96.911A Strain of unspecified muscle and tendon at ankle and foot level, right foot, initial encounter; B96.89 Other specified bacterial agents as the cause of diseases classified elsewhere; E11.42 Type 2 diabetes mellitus with diabetic polyneuropathy; Z95.1 Presence of aortocoronary bypass graft; E11.621 Type 2 diabetes mellitus with foot ulcer; Z20.822 Contact with and (suspected) exposure to COVID-19; F10.11 Alcohol abuse, in remission

== ENCOUNTER 2022-05-17 13:22 | Inpatient (IN) ==
[2022-05-17 14:42] LABS: Basophils # (auto) 0.03 K/uL (0-0.2); Basophils % (auto) 0.5 %; Eosinophils # (auto) 0.29 K/uL (0-0.50); Eosinophils % (auto) 4.6 %; Hematocrit (blood only) 33.9 % (40.1-51.0); Hemoglobin 10.8 g/dl (14.0-18.0); Immature Granulocytes # (auto) 0.02 K/uL (0.00-0.02); Immature Granulocytes % (auto) 0.3 %; Lymphocytes # (auto) 1.03 K/uL (1.2-3.4); Lymphocytes % (auto) 16.4 %; Mean Corpuscular Hemoglobin 26.7 pg (25.0-34.0); Mean Corpuscular Hgb Conc 31.9 g/dL (32.0-36.0); Mean Corpuscular Volume 83.9 fL (80.0-100.0); Mean Platelet Volume 9.7 fL (9.4-12.4); Monocytes # (auto) 0.73 K/uL (0.24-0.82); Monocytes % (auto) 11.6 %; Neutrophils # (auto) 4.18 K/uL (1.4-6.5); Neutrophils % (auto) 66.6 %; Platelet Count 315 K/uL (130-400); RDW Coefficient of Variation 13.1 % (11.5-14.5); RDW Standard Deviation 39.7 fL (36.4-46.3); Red Blood Count 4.04 M/uL (4.63-6.08); White Blood Count 6.28 K/ul (4.8-10.8)
[2022-05-17 15:12] LABS: Albumin Globulin Ratio 0.6 (0.9-2); Albumin Level 3.3 gm/dl (3.4-5.0); Bilirubin,Total 0.4 mg/dl (0.2-1.0); Calcium 9.1 mg/dl (8.5-10.1); Creatinine Clr Calc Pharmacy 57.5 ml/min; Est GFR (African American) 56.7 ml/min; Globulin 5.3 gm/dl (2.5-4.0); Potassium 4.7 mmol/L (3.5-5.1); Total Protein 8.6 gm/dl (6.0-8.3)
--- NOTE | 2022-05-17 17:56 | Emergency Department Note ---
Impression & Plan Diabetic foot infection, Hyperglycemia due to type 2 diabetes mellitus, Osteomyelitis ED Provider Note Provider: Selvin Peng MD DATE OF SERVICE: 05/17/2022 CHIEF COMPLAINT: Right foot swelling HISTORY OF PRESENT ILLNESS: Patient is a 66-year-old gentleman history of diabetes and prior right foot infections as well as hypertension presenting today with from urgent care where he was referred from today. Evidently over the past week and a half significant increase in swelling of his right ankle and lower leg. States he has severe neuropathy and does not feel much. Has been walking on it and denies any twist or significant trauma. Patient denies fever or chills. States sugars been fairly well controlled. Patient states he thought this might just be gout but is very very swollen. History of infections in this ankle before but never swollen to this degree. Denies any f bri to his knowledge but states he always feels cold REVIEW OF SYSTEMS: A total of 10 review of systems was obtained and negative except as stated above in the HPI. PAST MEDICAL HISTORY: As noted above MEDICATIONS: Reviewed home medications SOCIAL HISTORY: Lives at home with PHYSICAL EXAM: GENERAL: alert and oriented in no acute distress on stretcher Head: normocephalic and atraumatic EYES: No injection, discharge or icterus. NECK: Trachea midline. ENT: Mucous membranes pink and moist. LUNGS: Airway patent. No retractions or tachypnea HEART: Regular rate and rhythm. No chest wall tenderness ABDOMEN: Soft and non-tender, without guarding or rebound. SKIN: Acyanotic, warm, dry, without rashes EXTREMITIES: Without swelling, tenderness or deformity except for 2-3+ swelling below the right knee some slight erythema around the ankle but no large wounds appreciated. Minimal swelling of the toes themselves. Decent capillary refill of the right foot. NEUROLOGICAL: Diminished peripheral sensation of the bilateral feet to the knees. No aphasia. No facial droop or slurred speech. Normal strength and tone in the extremities. Patient's laboratory studies and imaging reviewed. Differential includes Cellulitis, abscess, MRSA infection, DVT, necrotizing fasciitis, dermatitis, drug eruption, allergic reaction, as well as other pathologies. IMPRESSION/MEDICAL DECISION MAKING: History of diabetes and significant diabetic foot infections. Significant swelling of the right ankle to the right lower leg seems to be more than just the joint and I doubt gout. Neuropathy limits sensation to the patient here which he states is unchanged. No large open wounds but again significant swelling. We will complete ultrasound to exclude DVT. CRP significantly elevated as is ESR but no significant leukocytosis. No fever here. Reports feeling cold however. Doubt sepsis but believe likely an infection. Cultures obtained. X-ray of the foot obtained. Concern for osteo of the right foot/calcaneus. Discussed with pharmacy antibiotic choice and at at this time they stated vancomycin and Zosyn would be appropriate. Ultrasound negative for DVT. Patient denies any falls or significant trauma. X-ray findings with question of fracture and believe are likely indicative of fracture related to weakened infected osteomyelitis here. Again covered with broad-spectrum a ntibiotics & will bring in for further medical care. DIAGNOSIS: Diabetic right foot infection, hyperglycemia due to type 2 diabetes DISPOSITION: Hospitalist will evaluate Patient was agreeable with this plan. 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 HTN (hypertension) Pt reports stopped taking Lisinopril and Metoprolol approx 4 weeks ago bc "blood pressure is good" - says PCP is aware. Hyperlipidemia Myocardial Infarction 2003 Neuropathy Surgical History History of coronary artery bypass graft CABG x3 (2003) History of foot surgery Surgical debridement to R heel History of tooth extraction History of vasectomy S/P PICC central line placement removed Family History Father Multiple myeloma Other Diabetes No family history of adverse response to anesthesia Social History Smoking Status: Never smoker Second Hand Exposure: Yes ( smokes); Hx Alcohol Use: Yes Alcohol type: beer Alcohol Intake Frequency: 2-3 x/Week Hx Substance Use: No Preferred Language: Iraqi Communication Ability: Effective 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 able to assist with care as needed. Feels Safe at Home: Yes caffeine: Yes during the past year weight has: remained stable Gender Identity: Male Assistive Devices: None Allergies Allergies Allergy/AdvReac Type Severity Reaction Status Date / Time No Known Allergies Allergy Verified 05/17/22 18:02 Home Meds Home Medications Medication Instructions Recorded Confirmed insulin NPH isoph U-100 human 100 20 unit subcut BID 08/07/21 05/17/22 unit/mL subcutaneous suspension (Novolin N NPH U-100 Insulin isophane) lisinopril 5 mg tablet 5 mg PO DAILY 01/18/22 05/17/22 metoprolol succinate 25 mg 25 mg PO DAILY 01/18/22 05/17/22 tablet,extended release 24 hr Previous Rx's Medication Instructions Recorded atorvastatin 40 mg tablet 40 mg PO QAM #30 tabs 02/07/20 aspirin 81 mg tablet,delayed 81 mg PO BID #60 tabs 10/05/21 release Results & Data (ED) Vital Signs Vital Signs - 24 hr 05/17/22 13:55 05/17/22 17:22 05/17/22 21:05 Temperature 36.7 C 37.2 C Temperature Source Temporal Artery Scan Oral Pulse Rate 94 H Pulse Rate [Apical] 98 H 79 Pulse Rhythm [Apical] Regular Respiratory Rate 18 16 18 Respiratory Effort / Characteristics Non-Labored Non-Labored Respiratory Depth Normal Normal Normal Respiratory Pattern Regular Blood Pressure 161/87 H Blood Pressure [Right Arm] 190/88 H 139/95 Blood Pressure Mean 111 Blood Pressure Mean [Right Arm] 122 109 Blood Pressure Position Sitting Pulse Oximetry 100 100 99 Oxygen Delivery Method Room Air Room Air Room Air Sepsis Recent Fever Within 48 Hours No Sepsis New/Unexplained Change in Mental Status No Sepsis Action Taken by Nursing No Action Required Laboratory Data Result diagrams: 05/17/22 14:24 05/17/22 14:24 Lab Results 05/17/22 05/17/22 05/17/22 Range/Units 14:24 14:24 14:24 WBC 6.28 (4.8-10.8) K/ul RBC 4.04 L (4.63-6.08) M/uL Hgb 10.8 L (14.0-18.0) g/dl Hct 33.9 L (40.1-51.0) % MCV 83.9 (80.0-100.0) fL MCH 26.7 (25.0-34.0) pg MCHC 31.9 L (32.0-36.0) g/dL RDW Std Deviation 39.7 (36.4-46.3) fL RDW Coeff of Mau 13.1 (11.5-14.5) % Plt Count 315 (130-400) K/uL MPV 9.7 (9.4-12.4) fL Immature Gran % (Auto) 0.3 % Neut % (Auto) 66.6 % Lymph % (Auto) 16.4 % [place] % (Auto) 11.6 % Eos % (Auto) 4.6 % Baso % (Auto) 0.5 % Neut # (Auto) 4.18 (1.4-6.5) K/uL Lymph # (Auto) 1.03 L (1.2-3.4) K/uL [place] # (Auto) 0.73 (0.24-0.82) K/uL Eos # (Auto) 0.29 (0-0.50) K/uL Baso # (Auto) 0.03 (0-0.2) K/uL Immature Gran # (Auto) 0.02 (0.00-0.02) K/uL ESR 115 H (0-20) mm/hr Sodium 134 L (136-145) mmol/L Potassium 4.7 (3.5-5.1) mmol/L Chloride 101 (98-107) mmol/L Carbon Dioxide 22 (21-32) mmol/L Anion Gap 11 (3-11) BUN 37 H (6-23) mg/dl Creatinine 1.48 H (0.6-1.4) mg/dl Est Cr Clr Drug Dosing 57.5 ml/min Est GFR ( Amer) 56.7 ml/min Est GFR (Non-Af Amer) 49.0 ml/min BUN/Creatinine Ratio 25.0 H (10-20) Glucose 168 H (70-99(Fasting)) mg/dl Lactate (0.4-2.0) mmol/L Calcium 9.1 (8.5-10.1) mg/dl Total Bilirubin 0.4 (0.2-1.0) mg/dl AST 34 (13-39) U/L ALT 46 (7-52) U/L Alkaline Phosphatase 101 (34-104) U/L C-Reactive Protein (0-0.5) mg/dl Total Protein 8.6 H (6.0-8.3) gm/dl Albumin 3.3 L (3.4-5.0) gm/dl Globulin 5.3 H (2.5-4.0) gm/dl Albumin/Globulin Ratio 0.6 L (0.9-2) Procalcitonin (0-0.5) ng/ml SARS-CoV-2, RNA, NAAT (NEGATIVE) 05/17/22 05/17/22 05/17/22 Range/Units 14:24 17:56 18:41 WBC (4.8-10.8) K/ul RBC (4.63-6.08) M/uL Hgb (14.0-18.0) g/dl Hct (40.1-51.0) % MCV (80.0-100.0) fL MCH (25.0-34.0) pg MCHC (32.0-36.0) g/dL RDW Std Deviation (36.4-46.3) fL RDW Coeff of Mau (11.5-14.5) % Plt Count (130-400) K/uL MPV (9.4-12.4) fL Immature Gran % (Auto) % Neut % (Auto) % Lymph % (Auto) % [place] % (Auto) % Eos % (Auto) % Baso % (Auto) % Neut # (Auto) (1.4-6.5) K/uL Lymph # (Auto) (1.2-3.4) K/uL [place] # (Auto) (0.24-0.82) K/uL Eos # (Auto) (0-0.50) K/uL Baso # (Auto) (0-0.2) K/uL Immature Gran # (Auto) (0.00-0.02) K/uL ESR (0-20) mm/hr Sodium (136-145) mmol/L Potassium (3.5-5.1) mmol/L Chloride (98-107) mmol/L Carbon Dioxide (21-32) mmol/L Anion Gap (3-11) BUN (6-23) mg/dl Creatinine (0.6-1.4) mg/dl Est Cr Clr Drug Dosing ml/min Est GFR ( Amer) ml/min Est GFR (Non-Af Amer) ml/min BUN/Creatinine Ratio (10-20) Glucose (70-99(Fasting)) mg/dl Lactate 1.2 (0.4-2.0) mmol/L Calcium (8.5-10.1) mg/dl Total Bilirubin (0.2-1.0) mg/dl AST (13-39) U/L ALT (7-52) U/L Alkaline Phosphatase (34-104) U/L C-Reactive Protein 33.49 H (0-0.5) mg/dl Total Protein (6.0-8.3) gm/dl Albumin (3.4-5.0) gm/dl Globulin (2.5-4.0) gm/dl Albumin/Globulin Ratio (0.9-2) Procalcitonin (0-0.5) ng/ml SARS-CoV-2, RNA, NAAT NEGATIVE (NEGATIVE) 05/17/22 Range/Units 19:59 WBC (4.8-10.8) K/ul RBC (4.63-6.08) M/uL Hgb (14.0-18.0) g/dl Hct (40.1-51.0) % MCV (80.0-100.0) fL MCH (25.0-34.0) pg MCHC (32.0-36.0) g/dL RDW Std Deviation (36.4-46.3) fL RDW Coeff of Mau (11.5-14.5) % Plt Count (130-400) K/uL MPV (9.4-12.4) fL Immature Gran % (Auto) % Neut % (Auto) % Lymph % (Auto) % [place] % (Auto) % Eos % (Auto) % Baso % (Auto) % Neut # (Auto) (1.4-6.5) K/uL Lymph # (Auto) (1.2-3.4) K/uL [place] # (Auto) (0.24-0.82) K/uL Eos # (Auto) (0-0.50) K/uL Baso # (Auto) (0-0.2) K/uL Immature Gran # (Auto) (0.00-0.02) K/uL ESR (0-20) mm/hr Sodium (136-145) mmol/L Potassium (3.5-5.1) mmol/L Chloride (98-107) mmol/L Carbon Dioxide (21-32) mmol/L Anion Gap (3-11) BUN (6-23) mg/dl Creatinine (0.6-1.4) mg/dl Est Cr Clr Drug Dosing ml/min Est GFR ( Amer) ml/min Est GFR (Non-Af Amer) ml/min BUN/Creatinine Ratio (10-20) Glucose (70-99(Fasting)) mg/dl Lactate (0.4-2.0) mmol/L Calcium (8.5-10.1) mg/dl Total Bilirubin (0.2-1.0) mg/dl AST (13-39) U/L ALT (7-52) U/L Alkaline Phosphatase (34-104) U/L C-Reactive Protein (0-0.5) mg/dl Total Protein (6.0-8.3) gm/dl Albumin (3.4-5.0) gm/dl Globulin (2.5-4.0) gm/dl Albumin/Globulin Ratio (0.9-2) Procalcitonin 0.14 (0-0.5) ng/ml SARS-CoV-2, RNA, NAAT (NEGATIVE) Administered Medications Discontinued Medications Vancomycin HCl 1,750 mg/ (Sodium Chloride) 535 mls @ 200 mls/hr IV NOW ONE Stop: 05/17/22 20:41 Last Admin: 05/17/22 19:18 Dose: 200 mls/hr Documented By: RONALD Piperacillin Sod/Tazobactam Sod (Zosyn) 4.5 gm in 120 mls @ 240 mls/hr IV NOW ONE Stop: 05/17/22 18:30 Last Infusion: 05/17/22 20:40 Dose: 0 mls/hr Documented By: Admin: 05/17/22 18:43 Dose: 240 mls/hr Documented By: RONALD Imaging Data Radiologist's Impression: Foot X-Ray 05/17/22 15:44 XR foot RT min 3V routine CLINICAL HISTORY: foot pain/swelling TECHNIQUE: 3 views of the right foot were obtained. Comparison: Comparison is made to right calcaneal radiograph to [address] right foot 01/10/2021 FINDINGS: There is a fracture of the calcaneus which fragmentation appears to extend to the posterior talocalcaneal joint. Degenerative changes are seen. Soft tissue swelling is seen. There is suggestion of a large heel ulcer. IMPRESSION: Fracture of the calcaneus is seen with some fragmentation which likely involves the posterior talocalcaneal joint, involvement of the other joints of the calcaneus cannot be entirely excluded. Soft tissue swelling and a heel ulcer is noted, underlying osteomyelitis cannot be excluded. ACT 112: Negative or not required by law. Electronically signed by: Gordon Erazo M.D. 05/17/2022 6:04 PM Venous Doppler Study 05/17/22 17:47 US venous doppler LE RT CLINICAL HISTORY: swelling TECHNIQUE: Right lower extremity real-time compression venous ultrasound with Color Doppler imaging. Utilizing real-time ultrasonic imaging multiple real time high-resolution ultrasonic images with compression and noncompression maneuvers of the deep venous system in addition to color doppler imaging were performed from the common femoral vein through the proximal calf veins. COMPARISON: None available at the time of this dictation. FINDINGS: Currently there is normal compressibility of the deep venous system from the common femoral vein through the proximal calf veins. Lymph nodes are noted in the right groin. There is also a subcentimeter lymph node in the right popliteal fossa. Fatty jacques are preserved. Impression: No evidence of deep venous thrombus. ACT 112: Negative or not required by law. Electronically signed by: Gordon Erazo M.D. 05/17/2022 7:37 PM Discharge Plan Visit Data Chief Complaint: Infection Stated Complaint: INFECTION RIGHT FOOT ED Provider: Selvin Peng Discharge Problem: Diabetic foot infection, Hyperglycemia due to type 2 diabetes mellitus, Osteomyelitis Patient Disposition: Admitted As Inpatient Prescriptions Prescriptions: No Action atorvastatin 40 mg Tablet 40 mg PO QAM Qty: 30 5RF Novolin N NPH U-100 Insulin 100 unit/mL suspension 20 unit SUBCUT BID Rx Instructions: PER PT "SOMETIMES HAVE TO INCREASE DOSE DEPENDING ON WHAT I'M EATING". aspirin 81 mg tablet,delayed release (DR/EC) 81 mg PO BID Qty: 60 0RF lisinopril 5 mg Tablet 5 mg PO DAILY metoprolol succinate 25 mg Tablet Extended Release 24 Hr 25 mg PO DAILY Referrals Referrals: Axel Johnson MD [Primary Care Provider] -
[2022-05-17] MEDS ORDERED: PIPERACILLIN/TAZOBACTAM 4.5 GM/120 ML BAG IV ONE (18:01)
[2022-05-17] MEDS ORDERED: VANCOMYCIN CONSULT ACTIVE PRN (18:01)
[2022-05-17] MEDS ORDERED: VANCOMYCIN HCL 1,750 MG in SODIUM CHLORIDE 0.9% 500 ML IV ONE (18:01)
--- NOTE | 2022-05-17 18:05 | XRay Report ---
XR foot RT min 3V routine CLINICAL HISTORY: foot pain/swelling TECHNIQUE: 3 views of the right foot were obtained. Comparison: Comparison is made to right calcaneal radiograph to [address] right foot 01/10/2021 FINDINGS: There is a fracture of the calcaneus which fragmentation appears to extend to the posterior talocalca loida joint. Degenerative changes are seen. Soft tissue swelling is seen. There is suggestion of a lar ge heel ulcer. IMPRESSION: Fracture of the calcaneus is seen with some fragmentation which likely involves the posterior talocal caneal joint, involvement of the other joints of the calcaneus cannot be entirely excluded. Soft tiss ue swelling and a heel ulcer is noted, underlying osteomyelitis cannot be excluded. ACT 112: Negative or not required by law. Electronically signed by: Gordon Erazo M.D. 05/17/2022 6:04 PM
--- NOTE | 2022-05-17 19:39 | Ultrasound Report ---
US venous doppler LE RT CLINICAL HISTORY: swelling TECHNIQUE: Right lower extremity real-time compression venous ultrasound with Color Doppler imaging. Utilizing real-time ultrasonic imaging multiple real time high-resolution ultrasonic images with comp ression and noncompression maneuvers of the deep venous system in addition to color doppler imaging w ere performed from the common femoral vein through the proximal calf veins. COMPARISON: None available at the time of this dictation. FINDINGS: Currently there is normal compressibility of the deep venous system from the common femoral vein thro ugh the proximal calf veins. Lymph nodes are noted in the right groin. There is also a subcentimeter lymph node in the right popliteal fossa. Fatty jcaques are preserved. Impression: No evidence of deep venous thrombus. ACT 112: Negative or not required by law. Electronically signed by: Gordon Erazo M.D. 05/17/2022 7:37 PM
[2022-05-17] MEDS ORDERED: LORazepam 3 MG in SYRINGE 0 ML IV PRN (23:10)
[2022-05-17] MEDS ORDERED: MULTI-VITAMIN INFUSION 10 ML, THIAMINE HCL 100 MG, FOLIC ACID 1 MG in SODIUM CHLORIDE 0... IV ONE (23:10)
[2022-05-17] MEDS ORDERED: ACETAMINOPHEN 325 MG TAB PO PRN (23:10)
[2022-05-17] MEDS ORDERED: LORazepam 2 MG in SYRINGE 0 ML IV PRN (23:10)
[2022-05-17] MEDS ORDERED: POLYETHYLENE (MIRALAX) 17 GM PACK PO PRN (23:10)
[2022-05-17] MEDS ORDERED: SODIUM CHLORIDE 0.9% 1000ML 1,000 ML IV SCH (23:10)
[2022-05-17] MEDS ORDERED: LORazepam 1 MG in SYRINGE 0 ML IV PRN (23:10)
[2022-05-17] MEDS ORDERED: Ativan IV Alcohol Withdrawal--Active Protocol IV PRN (23:10)
[2022-05-17] MEDS ORDERED: GABAPENTIN 1200MG ALCOHOL WITHDRAWAL LOAD PO STA (23:10)
[2022-05-17] MEDS ORDERED: LANTUS PER UNIT CHARGE SQ STA (23:18)
[2022-05-17] MEDS ORDERED: DEXTROSE 50% 50 ML SYRINGE IV PRN (23:45)
[2022-05-17] MEDS ORDERED: GLUCOSE 40% GEL 15 GM TUBE PO PRN (23:45)
[2022-05-17] MEDS ORDERED: GLUCOSE 10 TAB/TUBE PO PRN (23:45)
[2022-05-17] MEDS ORDERED: CARBOHYDRATES FOR HYPOGLYCEMIA PO PRN (23:45)
[2022-05-17] MEDS ORDERED: GLUCAGON FOR INJ 1 MG VIAL IM PRN (23:45)
[2022-05-17] MEDS ORDERED: INSULIN ASPART PER UNIT SC STA (23:56)
[2022-05-18] MEDS ORDERED: GABAPENTIN 600 MG TAB PO ONE
[2022-05-18] MEDS: PIPERACILLIN/TAZOBACTAM 3.375 GM in DEXTROSE 5% 100 ML IV SCH ×4 (00:25→23:07)
[2022-05-18] MEDS: THIAMINE HCL 100 MG TAB PO SCH ×2 (00:29→09:08)
[2022-05-18] MEDS: FOLIC ACID 1 MG TAB PO SCH ×2 (00:29→09:07)
--- NOTE | 2022-05-18 01:39 | History and Physical Report ---
DATE OF ADMISSION: 05/17/2022. CHIEF COMPLAINT: Right foot and ankle infection. HISTORY OF PRESENT ILLNESS: This is a 66-year-old male with past medical history significant for type 2 diabetes, diabetic right foot ulcer, diabetic peripheral neuropathy, hyperlipidemia, hypertension, CAD, obesity, history of osteomyelitis of the right foot, peripheral neuropathy, history of alcohol abuse, history of CABG, presents with right foot and ankle infection. The patient has been having infection for the long time, going on for the last 2 years. He thought it got better, but it is not getting better, and it is got worse lately, swelling in the right ankle and redness. He went to urgent care, was sent here. The patient denies any pain. He says he has neuropathy and does not have much feeling. He is able to walk on the leg. Denies any fever or chills. Currently, resting comfortably and hemodynamically stable. Denies any chest pain, no shortness of breath, no cough, no nausea, no vomiting, no abdominal pain. Normal bowel and bladder movements. No headache, no blurred visions, no earache, no runny nose, no sore throat. The patient states he drinks 4-6 beers every other day, last drink was 1 week ago. He does not think that he will go through withdrawal. ALLERGIES: No known drug allergies. PAST MEDICAL HISTORY: As mentioned above. PAST SURGICAL HISTORY: CABG, vasectomy. MEDICATIONS: Currently, the patient is on aspirin 81 mg p.o. b.i.d., atorvastatin 40 mg p.o. daily, lisinopril 5 mg p.o. daily, metoprolol succinate 25 mg p.o. daily, Novolin N 20 units subcutaneous b.i.d. FAMILY HISTORY: Significant for mother has breast cancer, father had cancer, diabetes, multiple myeloma. SOCIAL HISTORY: , former smoker. Previously drinking heavily, but not currently, but the patient says he is drinking 4-6 beers every other day, last drink was 1 week ago as per patient. No drug use. REVIEW OF SYSTEMS: As per HPI. Rest of the review of systems is negative. PHYSICAL EXAMINATION: GENERAL: The patient is of moderate build, not in acute distress. VITAL SIGNS: Temperature 37.2, pulse 79, respiratory rate 18, blood pressure 113/95, oxygen 99% on room air. HEENT: Pupils equal, round and reactive to light. Oral mucosa moist. NECK: No JVD, no neck masses. CARDIOVASCULAR: S1 and S2 heard. Regular rate and rhythm. No murmur, no gallop. RESPIRATORY SYSTEM: Normal AP diameter. No accessory muscle use. No wheezing or crackles. ABDOMEN: Soft, bowel sounds present, nontender, no distention. CENTRAL NERVOUS SYSTEM: Cranial nerves II through XII grossly intact, nonfocal. EXTREMITIES: Right ankle and foot is swollen, erythematous and warm to palpation and there is dry ulcer seen in the right heel. LABORATORY DATA: WBC 6.2, hemoglobin 10.8, hematocrit 33.9, platelets 315, ESR 115. Sodium 134, potassium 4.7, chloride 101, bicarbonate 22, BUN 37, creatinine 1.4, serum glucose 168. Lactate 1.2, calcium 9.1. Total bilirubin 0.4, AST 34, ALT 46, alkaline phosphatase 101. C-reactive protein 33.4. Procalcitonin 0.14. SARS-CoV-2 rapid test negative. IMAGING DATA: Venous Doppler on the right lower extremity, no DVT. Foot x-ray, right side, fracture of the calcaneus is seen with some fragmentation, which likely involves the posterior talocalcaneal joint, involvement of the other joints of the calcaneus cannot be entirely excluded. Soft tissue swelling and the heel ulcer is noted, underlying osteomyelitis cannot be excluded. ASSESSMENT AND PLAN: This 66-year-old male presents with nonhealing diabetic foot ulcer. 1. Right heel ulcer and right foot and ankle infection, cellulitis and possible osteomyelitis: Empirically started on vancomycin and Zosyn. We will get MRI scan. Ortho consult. Gentle fluids. Closely monitor in the medical floor. 2. Diabetes: We will hold his home Novolin. Place him on Lantus 5 units b.i.d., insulin sliding scale. Follow the blood sugars, follow HbA1c levels. 3. History of hypertension: Continue metoprolol, lisinopril. We will monitor the blood pressure. 4. History of hyperlipidemia: Continue statin. 5. History of coronary artery disease: On aspirin, statin, and beta alysia. 6. Ongoing alcoholism: The patient states last drink was 1 week ago. He states he drinks every other day 4-[address] him on banana bag, gabapentin, alcohol protocol with IV Ativan p.r.n. and p.o. thiamine, p.o. folic acid. Closely monitor for withdrawal. 7. Acute kidney injury: Creatinine 1.4. We will follow the repeat labs. 8. Anemia: Hemoglobin of 10.8, could be anemia of chronic kidney disease. We will also check stool for Hemoccult, iron studies. 9. Deep venous thrombosis prophylaxis: Lovenox. DISPOSITION: Closely monitor in the medical floor. PT/OT prior to discharge. Social service to help with discharge planning. Job ID: [id number] [facility]
--- NOTE | 2022-05-18 02:48 | Pharmacy Report ---
Pharmacy PK ABX Note - Date of Service May 18, 2022 - Assessment and Plan Assessment 66 year old M receiving Vancomycin/Zosyn for treatment of SST (R foot infection). Pertinent microbiologic data includes: blood culture pending. Plan Vancomycin * Loading dose: 1750 mg IV x 1 * Maintenance dose: 1500 mg IV every 24 hours * Regimen is predicted to achieve target AUC/BRUCE of 400-600 mg/L.hr * SCr is elevated slightly from baseline (1.48 on 05/17 vs ~1 at baseline). Will adjust Vancomycin dose accordingly if renal functions improves. Pharmacy will continue to follow and will adjust dose/frequency as necessary. Thank you. Pharmacy has transitioned to AUC monitoring for vancomycin. AUC/BRUCE is the preferred PK/PD target and is associated with decreased risk of nephrotoxicity compared to traditional trough targets.
[2022-05-18 05:25] LABS: Basophils # (auto) 0.04 K/uL (0-0.2); Eosinophils # (auto) 0.25 K/uL (0-0.50); Eosinophils % (auto) 6.4 %; Hematocrit (blood only) 26.2 % (40.1-51.0); Hemoglobin 8.6 g/dl (14.0-18.0); Immature Granulocytes # (auto) 0.02 K/uL (0.00-0.02); Immature Granulocytes % (auto) 0.5 %; Lymphocytes # (auto) 0.49 K/uL (1.2-3.4); Lymphocytes % (auto) 12.6 %; Mean Corpuscular Hemoglobin 27.1 pg (25.0-34.0); Mean Corpuscular Hgb Conc 32.8 g/dL (32.0-36.0); Mean Corpuscular Volume 82.6 fL (80.0-100.0); Mean Platelet Volume 9.1 fL (9.4-12.4); Monocytes # (auto) 0.55 K/uL (0.24-0.82); Monocytes % (auto) 14.2 %; Neutrophils # (auto) 2.53 K/uL (1.4-6.5); Neutrophils % (auto) 65.3 %; Platelet Count 233 K/uL (130-400); RDW Coefficient of Variation 13.2 % (11.5-14.5); Red Blood Count 3.17 M/uL (4.63-6.08); White Blood Count 3.88 K/ul (4.8-10.8)
[2022-05-18] MEDS: GABAPENTIN 600 MG TAB PO SCH ×2 (05:27→12:50)
[2022-05-18 05:48] LABS: Albumin Level 2.7 gm/dl (3.4-5.0); BUN Creatinine Ratio 23.5 (10-20); Bilirubin Direct 0.2 mg/dl (0-0.2); Bilirubin,Total 0.4 mg/dl (0.2-1.0); Calcium 7.9 mg/dl (8.5-10.1); Creatinine Clr Calc Pharmacy 71.2 ml/min; Est GFR (African American) 73.9 ml/min; Est GFR (Non-African American) 63.7 ml/min; Magnesium 1.9 mg/dl (1.7-2.4); Potassium 4.2 mmol/L (3.5-5.1); Total Protein 6.9 gm/dl (6.0-8.3)
[2022-05-18] MEDS ORDERED: COUGH DROP (SUGAR FREE) LOZ 24 LOZ/1 BOX BUCCAL ONE (06:25)
[2022-05-18 06:50] LABS: Vitamin B12 501 pg/ml (180-914)
[2022-05-18 07:24] LABS: Estimated Average Glucose 180 mg/dl; Hemoglobin A1C 7.9 % (4.5-5.6)
[2022-05-18] MEDS ORDERED: LANTUS PER UNIT CHARGE SQ SCH (09:00)
[2022-05-18] MEDS ORDERED: ENOXAPARIN INJ 40 MG/0.4 ML SYR SQ SCH (09:00)
[2022-05-18] MEDS: ASPIRIN 81 MG ECTAB PO SCH ×2 (09:06→20:46)
[2022-05-18] MEDS: ATORVASTATIN 40 MG TAB PO SCH (09:07)
[2022-05-18] MEDS: lisinopril 5 MG TAB PO SCH (09:07)
[2022-05-18] MEDS: METOPROLOL SUCC 25MG EXT REL TAB PO SCH (09:08)
[2022-05-18] MEDS: INSULIN ASPART PER UNIT SC SCH ×4 (09:13→20:46)
[2022-05-18] MEDS ORDERED: VANCOMYCIN HCL 1,500 MG in SODIUM CHLORIDE 0.9% 500 ML IV SCH (10:00)
[2022-05-18] MEDS ORDERED: GADOBUTROL 65ML VIAL IV ONE (11:58)
--- NOTE | 2022-05-18 13:20 | Hospitalist Progress Note ---
Date of Service May 18, 2022 Assessment & Plan (1) Diabetic foot infection: (2) Septic arthritis of ankle: (3) Osteomyelitis of ankle: Plan: History of diabetic foot ulcer for last 2 years. Started to have swelling, redness of right ankle 1 week prior to presentation to the ED. No leukocytosis ESR elevated 115 MRI of right ankle and foot reveals findings concerning for osteomyelitis of talus and calcaneum. Multiloculated joint effusion with findings concerning for septic arthritis with multiloculated abscess present US venous duplex negative for DVT Plan; Continue on empiric Zosyn and vancomycin for now --We will consult orthopedic for definitive management of osteomyelitis and possible multiloculated abscess --Follow-up on blood culture; (4) Hyperglycemia due to type 2 diabetes mellitus: Plan: History of uncontrolled diabetes mellitus HbA1c of 7.9 during admission Currently on Lantus 5 units twice daily and NovoLog. We will floor blood sugar and titrate as necessary. (5) Alcohol abuse with alcohol-induced disorder: Plan: Last drink 1 week ago as per the patient. No sign of withdrawal presently. Presently on gabapentin and alcohol withdrawal protocol with Ativan (6) Acute kidney injury: Plan: Creatinine 1.48 on admission; baseline around 1.2-3 Improved with IV fluids. Monitor daily BMP Plan Chronic issues: History of hypertension: Continue metoprolol, lisinopril. We will monitor the blood pressure. History of hyperlipidemia: Continue statin. History of coronary artery disease: On aspirin, statin, and beta alysia. Anemia: Hemoglobin downtrending; no sign of active bleeding. Continue to monitor. Fecal occult blood pending Deep venous thrombosis prophylaxis: Lovenox. Admission and Anticipated Discharge Date Admission Date: May 17, 2022 Subjective Patient seen and examined at bedside. He is lying comfortably on the bed; not in distress. He comes planes of pain and swelling in his right foot Review of Systems Review of Systems: All systems reviewed & are unremarkable except as noted in Subjective Physical Exam Physical Exam: Constitutional: WD/WN, vitals as above, NAD, sitting up in bed, pleasant, conversing easily Respiratory: normal respiratory effort, lungs clear to auscultation, no wheeze, rales, rhonchi. Normal insp/exp effort, no accessory muscle use Cardiovascular: RRR, no murmur, no edema Vessels: no JVD or carotid bruit Chest: normal inspection of chest Abdomen: normal bowel sounds, soft, nontender, no hepatosplenomegaly Musculoskeletal: Right foot swollen with erythema around the hindfoot. The swelling and erythema tracks upwards to his calf. Skin: no rashes, warm and dry normal turgor Neurologic: PERRL, EOMI, accommodation nl, no face palsy, no dysarthria CN's II- XI intact bilaterally and moves all extremities Psychiatric: A+Ox3, euthymic affect Lymphatic: no cervical or axillary lymphadenopathy : deferred Results & Data Results & Data ([facility]) Vital Signs (Past 12 Hours) Vital Signs Temp Pulse Pulse Resp BP Pulse Ox O2 Del Method 05/18/22 13:08 36.8 C 98 H 18 158/85 H 100 Room Air 05/18/22 09:05 96 H 158/83 H 05/18/22 07:29 37.0 C 102 H 17 143/84 H 90 Room Air 05/18/22 03:52 37.1 C 82 16 144/81 H 96 Room Air Laboratory Results Laboratory Results WBC 3.88 K/ul (4.8-10.8) L 05/18/22 05:18 RBC 3.17 M/uL (4.63-6.08) L 05/18/22 05:18 Hgb 8.6 g/dl (14.0-18.0) L 05/18/22 05:18 Hct 26.2 % (40.1-51.0) L 05/18/22 05:18 MCV 82.6 fL (80.0-100.0) 05/18/22 05:18 MCH 27.1 pg (25.0-34.0) 05/18/22 05:18 MCHC 32.8 g/dL (32.0-36.0) 05/18/22 05:18 RDW Std Deviation 40.0 fL (36.4-46.3) 05/18/22 05:18 RDW Coeff of Mau 13.2 % (11.5-14.5) 05/18/22 05:18 Plt Count 233 K/uL (130-400) 05/18/22 05:18 MPV 9.1 fL (9.4-12.4) L 05/18/22 05:18 Immature Gran % (Auto) 0.5 % 05/18/22 05:18 Neut % (Auto) 65.3 % 05/18/22 05:18 Lymph % (Auto) 12.6 % 05/18/22 05:18 [place] % (Auto) 14.2 % 05/18/22 05:18 Eos % (Auto) 6.4 % 05/18/22 05:18 Baso % (Auto) 1.0 % 05/18/22 05:18 Neut # (Auto) 2.53 K/uL (1.4-6.5) 05/18/22 05:18 Lymph # (Auto) 0.49 K/uL (1.2-3.4) L 05/18/22 05:18 [place] # (Auto) 0.55 K/uL (0.24-0.82) 05/18/22 05:18 Eos # (Auto) 0.25 K/uL (0-0.50) 05/18/22 05:18 Baso # (Auto) 0.04 K/uL (0-0.2) 05/18/22 05:18 Immature Gran # (Auto) 0.02 K/uL (0.00-0.02) 05/18/22 05:18 ESR 115 mm/hr (0-20) H 05/17/22 14:24 Sodium 133 mmol/L (136-145) L 05/18/22 05:18 Potassium 4.2 mmol/L (3.5-5.1) 05/18/22 05:18 Chloride 104 mmol/L (98-107) 05/18/22 05:18 Carbon Dioxide 23 mmol/L (21-32) 05/18/22 05:18 Anion Gap 6 (3-11) 05/18/22 05:18 BUN 28 mg/dl (6-23) H 05/18/22 05:18 Creatinine 1.19 mg/dl (0.6-1.4) 05/18/22 05:18 Est Cr Clr Drug Dosing 71.2 ml/min 05/18/22 05:18 Est GFR ( Amer) 73.9 ml/min 05/18/22 05:18 Est GFR (Non-Af Amer) 63.7 ml/min 05/18/22 05:18 BUN/Creatinine Ratio 23.5 (10-20) H 05/18/22 05:18 Glucose 236 mg/dl (70-99(Fasting)) H 05/18/22 05:18 POC Glucose 188 mg/dl (70-99) H 05/18/22 12:44 Estimat Average Glucose 180 mg/dl 05/18/22 05:18 Hemoglobin A1c 7.9 % (4.5-5.6) H 05/18/22 05:18 Lactate 1.2 mmol/L (0.4-2.0) 05/17/22 18:41 Calcium 7.9 mg/dl (8.5-10.1) L 05/18/22 05:18 Magnesium 1.9 mg/dl (1.7-2.4) 05/18/22 05:18 Iron 59 mcg/dl (35-175) 05/18/22 05:18 TIBC 240 mcg/dl (250-450) L 05/18/22 05:18 Unsaturated IBC 181 mcg/dl (155-355) 05/18/22 05:18 Transferrin % Sat 25 % (20-50) 05/18/22 05:18 Total Bilirubin 0.4 mg/dl (0.2-1.0) 05/18/22 05:18 Direct Bilirubin 0.2 mg/dl (0-0.2) 05/18/22 05:18 AST 24 U/L (13-39) 05/18/22 05:18 ALT 34 U/L (7-52) 05/18/22 05:18 Alkaline Phosphatase 89 U/L (34-104) 05/18/22 05:18 C-Reactive Protein 33.49 mg/dl (0-0.5) H 05/17/22 14:24 Total Protein 6.9 gm/dl (6.0-8.3) 05/18/22 05:18 Albumin 2.7 gm/dl (3.4-5.0) L 05/18/22 05:18 Globulin 5.3 gm/dl (2.5-4.0) H 05/17/22 14:24 Albumin/Globulin Ratio 0.6 (0.9-2) L 05/17/22 14:24 Vitamin B12 501 pg/ml (180-914) 05/18/22 05:18 Folate > 22.30 ng/ml (>5.38) 05/18/22 05:18 Procalcitonin 0.14 ng/ml (0-0.5) 05/17/22 19:59 SARS-CoV-2, RNA, NAAT NEGATIVE (NEGATIVE) 05/17/22 17:56 Impressions Foot X-Ray 05/17/22 15:44 XR foot RT min 3V routine CLINICAL HISTORY: foot pain/swelling TECHNIQUE: 3 views of the right foot were obtained. Comparison: Comparison is made to right calcaneal radiograph to [address] right foot 01/10/2021 FINDINGS: There is a fracture of the calcaneus which fragmentation appears to extend to the posterior talocalcaneal joint. Degenerative changes are seen. Soft tissue swelling is seen. There is suggestion of a large heel ulcer. IMPRESSION: Fracture of the calcaneus is seen with some fragmentation which likely involves the posterior talocalcaneal joint, involvement of the other joints of the calcaneus cannot be entirely excluded. Soft tissue swelling and a heel ulcer is noted, underlying osteomyelitis cannot be excluded. ACT 112: Negative or not required by law. Electronically signed by: Gordon Erazo M.D. 05/17/2022 6:04 PM Venous Doppler Study 05/17/22 17:47 US venous doppler LE RT CLINICAL HISTORY: swelling TECHNIQUE: Right lower extremity real-time compression venous ultrasound with Color Doppler imaging. Utilizing real-time ultrasonic imaging multiple real time high-resolution ultrasonic images with compression and noncompression maneuvers of the deep venous system in addition to color doppler imaging were performed from the common femoral vein through the proximal calf veins. COMPARISON: None available at the time of this dictation. FINDINGS: Currently there is normal compressibility of the deep venous system from the common femoral vein through the proximal calf veins. Lymph nodes are noted in the right groin. There is also a subcentimeter lymph node in the right popliteal fossa. Fatty jacques are preserved. Impression: No evidence of deep venous thrombus. ACT 112: Negative or not required by law. Electronically signed by: Gordon Erazo M.D. 05/17/2022 7:37 PM Ankle MRI 05/18/22 00:00 MR ankle RT wo/w con, MR foot RT wo/w con HISTORY: Right ankle and foot swelling. osteomyelitis? TECHNIQUE: Multiplanar multisequence MRI of the right ankle and right forefoot was performed both before and after the intravenous administration of 9 cc of Gadavist contrast. COMPARISON STUDY: Right foot radiograph 05/17/2022. FINDINGS: There is again noted deformity within the calcaneus suggesting an old fracture. No definite acute fracture or dislocation within the ankle or foot. There is diffuse soft tissue edema seen throughout the ankle and foot. No abnormal signal intensity or abnormal enhancement within the osseous structures of the forefoot to suggest an osteomyelitis. However, there is near diffuse signal abnormality within the talus and calcaneus as well as the distal fibula with associated patchy areas of enhancement probable erosive changes at the subtalar joint. Complex multiloculated joint effusions at the tibiotalar and subtalar joints with additional scattered peripheral enhancing fluid collections seen throughout the ankle. These findings suggest multifocal areas of osteomyelitis involving the talus, calcaneus, and distal fibula with probable septic arthritis at the subtalar joint. The multiloculated fluid collections are concerning for abscesses. Dominant fluid collection is seen tracking superiorly along the distal tibia and measures approximately 8.7 x 3.3 x 1.3 cm. Peripheral enhancing small fluid collections along the flexor and peroneal tendon sheaths. This suggests an infective tenosynovitis. IMPRESSION: 1. Abnormal signal intensity and enhancement seen throughout the majority of the talus and calcaneus concerning for an osteomyelitis. 2. Complex multiloculated joint effusions at the tibiotalar and subtalar joint with additional scattered peripheral enhancing fluid collection seen throughout the ankle and extending along the distal tibia. These findings are concerning for areas of septic arthritis with associated multiloculated abscesses. 3. No evidence for ostial myelitis within the forefoot. 4. Additional findings as described above. ACT 112: Negative or not required by law. Electronically signed by: Scar Calvert M.D. 05/18/2022 1:21 PM Foot MRI 05/18/22 00:00 MR ankle RT wo/w con, MR foot RT wo/w con HISTORY: Right ankle and foot swelling. osteomyelitis? TECHNIQUE: Multiplanar multisequence MRI of the right ankle and right forefoot was performed both before and after the intravenous administration of 9 cc of Gadavist contrast. COMPARISON STUDY: Right foot radiograph 05/17/2022. FINDINGS: There is again noted deformity within the calcaneus suggesting an old fracture. No definite acute fracture or dislocation within the ankle or foot. There is diffuse soft tissue edema seen throughout the ankle and foot. No abnormal signal intensity or abnormal enhancement within the osseous structures of the forefoot to suggest an osteomyelitis. However, there is near diffuse signal abnormality within the talus and calcaneus as well as the distal fibula with associated patchy areas of enhancement probable erosive changes at the subtalar joint. Complex multiloculated joint effusions at the tibiotalar and subtalar joints with additional scattered peripheral enhancing fluid collections seen throughout the ankle. These findings suggest multifocal areas of osteomyelitis involving the talus, calcaneus, and distal fibula with probable septic arthritis at the subtalar joint. The multiloculated fluid collections are concerning for abscesses. Dominant fluid collection is seen tracking superiorly along the distal tibia and measures approximately 8.7 x 3.3 x 1.3 cm. Peripheral enhancing small fluid collections along the flexor and peroneal tendon sheaths. This suggests an infective tenosynovitis. IMPRESSION: 1. Abnormal signal intensity and enhancement seen throughout the majority of the talus and calcaneus concerning for an osteomyelitis. 2. Complex multiloculated joint effusions at the tibiotalar and subtalar joint with additional scattered peripheral enhancing fluid collection seen throughout the ankle and extending along the distal tibia. These findings are concerning for areas of septic arthritis with associated multiloculated abscesses. 3. No evidence for ostial myelitis within the forefoot. 4. Additional findings as described above. ACT 112: Negative or not required by law. Electronically signed by: Scar Calvert M.D. 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
--- NOTE | 2022-05-18 13:23 | Magnetic Resonance Report ---
MR ankle RT wo/w con, MR foot RT wo/w con HISTORY: Right ankle and foot swelling. osteomyelitis? TECHNIQUE: Multiplanar multisequence MRI of the right ankle and right forefoot was performed both bef ore and after the intravenous administration of 9 cc of Gadavist contrast. COMPARISON STUDY: Right foot radiograph 05/17/2022. FINDINGS: There is again noted deformity within the calcaneus suggesting an old fracture. No definite acute fracture or dislocation within the ankle or foot. There is diffuse soft tissue edema seen thro ughout the ankle and foot. No abnormal signal intensity or abnormal enhancement within the osseous st ructures of the forefoot to suggest an osteomyelitis. However, there is near diffuse signal abnormali ty within the talus and calcaneus as well as the distal fibula with associated patchy areas of enhanc ement probable erosive changes at the subtalar joint. Complex multiloculated joint effusions at the t ibiotalar and subtalar joints with additional scattered peripheral enhancing fluid collections seen t hroughout the ankle. These findings suggest multifocal areas of osteomyelitis involving the talus, ca lcaneus, and distal fibula with probable septic arthritis at the subtalar joint. The multiloculated f luid collections are concerning for abscesses. Dominant fluid collection is seen tracking superiorly along the distal tibia and measures approximately 8.7 x 3.3 x 1.3 cm. Peripheral enhancing small flui d collections along the flexor and peroneal tendon sheaths. This suggests an infective tenosynovitis. IMPRESSION: 1. Abnormal signal intensity and enhancement seen throughout the majority of the talus and calcaneus concerning for an osteomyelitis. 2. Complex multiloculated joint effusions at the tibiotalar and subtalar joint with additional scatte red peripheral enhancing fluid collection seen throughout the ankle and extending along the distal ti nahomy. These findings are concerning for areas of septic arthritis with associated multiloculated absce sses. 3. No evidence for ostial myelitis within the forefoot. 4. Additional findings as described above. ACT 112: Negative or not required by law. Electronically signed by: Scar Calvert M.D. 05/18/2022 1:21 PM
--- NOTE | 2022-05-18 14:14 | XRay Report ---
XR chest 1V portable HISTORY: Cough COMPARISON: Chest 08/07/2021. FINDINGS: No pneumothorax. No pleural effusions. The cardiac silhouette remains mildly enlarged. Ther e are poststernotomy changes. No new focal lung consolidations to suggest a pneumonia. No evidence fo r pulmonary edema. IMPRESSION: No significant change compared to the prior study. No acute process. ACT 112: Negative or not required by law. Electronically signed by: Scar Calvert M.D. 05/18/2022 2:12 PM
--- NOTE | 2022-05-18 17:01 | Communication Note ---
Date of Service: May 18, 2022 Discussed with orthopedic( Dr. Hernández) regarding the MRI findings. He reviewed the MRI images and recommended transfer of the patient to tertiary care center given the extent of multiple abscesses and possibility of septic arthritis and osteomyelitis and also due to unavailability of foot and ankle surgeon here. Discussed with [facility]. Talked with Dr. Wheeler; unable to take the patient as there is no foot and ankle specialist over the weekend. Recommended continued care here. Called [facility]; awaiting callback Called [facility]; discussed with on-call orthopedic( Dr. Tompkins); wanted to speak with Dr. Hernández here prior to transfer. Discussed with Dr. Hernández; he will talk with [facility]. Patient informed of the events; he is agreeable to wait for transfer here. informed over the phone as well. Continue to monitor vitals. Continue on IV antibiotics.
--- NOTE | 2022-05-18 17:40 | Communication Note ---
Date of Service: May 18, 2022 Patient accepted a [facility] under Dr. Friedman. Conference call between Dr. Tompkins ( Orthopedic consumer educator at [facility]), Hospitalist consumer educator ( Dr. Friedman) and Dr. Hernández done. Patient to be monitored here till bed is available at [facility]. NPO made from midnight for potential debridement and washout. MRI of right lower leg ordered as per recommendation by Dr. Tompkins.
[2022-05-18] MEDS ORDERED: GABAPENTIN 600 MG TAB PO SCH (20:00)
[2022-05-18] MEDS: LANTUS PER UNIT CHARGE SQ SCH (20:46)
--- NOTE | 2022-05-18 21:22 | Discharge Summary ---
Date of Service May 18, 2022 Admission HPI Per Admitting Provider This is a 66-year-old male with past medical history significant for type 2 diabetes, diabetic right foot ulcer, diabetic peripheral neuropathy, hyperlipidemia, hypertension, CAD, obesity, history of osteomyelitis of the right foot, peripheral neuropathy, history of alcohol abuse, history of CABG, presents with right foot and ankle infection. The patient has been having infection for the long time, going on for the last 2 years. He thought it got better, but it is not getting better, and it is got worse lately, swelling in the right ankle and redness. He went to urgent care, was sent here. The patient denies any pain. He says he has neuropathy and does not have much feeling. He is able to walk on the leg. Denies any fever or chills. Currently, resting comfortably and hemodynamically stable. Denies any chest pain, no shortness of breath, no cough, no nausea, no vomiting, no abdominal pain. Normal bowel and bladder movements. No headache, no blurred visions, no earache, no runny nose, no sore throat. The patient states he drinks 4-6 beers every other day, last drink was 1 week ago. He does not think that he will go through withdrawal. Admission Exam (Per Admitting) Constitutional GENERAL: The patient is of moderate build, not in acute distress. VITAL SIGNS: Temperature 37.2, pulse 79, respiratory rate 18, blood pressure 113/95, oxygen 99% on room air. HEENT: Pupils equal, round and reactive to light. Oral mucosa moist. NECK: No JVD, no neck masses. CARDIOVASCULAR: S1 and S2 heard. Regular rate and rhythm. No murmur, no gallop. RESPIRATORY SYSTEM: Normal AP diameter. No accessory muscle use. No wheezing or crackles. ABDOMEN: Soft, bowel sounds present, nontender, no distention. CENTRAL NERVOUS SYSTEM: Cranial nerves II through XII grossly intact, nonfocal. EXTREMITIES: Right ankle and foot is swollen, erythematous and warm to palpation and there is dry ulcer seen in the right heel. Discharge Data Consultations 05/17/22 19:34 ED Decision to Admit Stat 05/18/22 13:37 Consult Orthopedic Surgery Routine Hospital Course (1) Osteomyelitis of ankle: PATIENT LAST COMMUNICATION AND PROGRESS NOTE PER : Patient accepted a under Dr. Friedman. Conference call between Dr. Tompkins ( Orthopedic client support consultant at [facility]), Hospitalist client support consultant ( Dr. Friedman) and Dr. Hernández done. Patient to be monitored here till bed is available at [facility]. NPO made from midnight for potential debridement and washout. MRI of right lower leg ordered as per recommendation by Dr. Tompkins. 1) Diabetic foot infection: (2) Septic arthritis of ankle: (3) Osteomyelitis of ankle: Plan: History of diabetic foot ulcer for last 2 years. Started to have swelling, redness of right ankle 1 week prior to presentation to the ED. No leukocytosis ESR elevated 115 MRI of right ankle and foot reveals findings concerning for osteomyelitis of talus and calcaneum. Multiloculated joint effusion with findings concerning for septic arthritis with multiloculated abscess present US venous duplex negative for DVT Plan; Continue on empiric Zosyn and vancomycin for now --We will consult orthopedic for definitive management of osteomyelitis and possible multiloculated abscess --Follow-up on blood culture; (4) Hyperglycemia due to type 2 diabetes mellitus: Plan: History of uncontrolled diabetes mellitus HbA1c of 7.9 during admission Currently on Lantus 5 units twice daily and NovoLog. We will floor blood sugar and titrate as necessary. (5) Alcohol abuse with alcohol-induced disorder: Plan: Last drink 1 week ago as per the patient. No sign of withdrawal presently. Presently on gabapentin and alcohol withdrawal protocol with Ativan (6) Acute kidney injury: Plan: Creatinine 1.48 on admission; baseline around 1.2-3 Improved with IV fluids. Monitor daily BMP Plan Chronic issues: History of hypertension: Continue metoprolol, lisinopril. We will monitor the blood pressure. History of hyperlipidemia: Continue statin. History of coronary artery disease: On aspirin, statin, and beta alysia. Anemia: Hemoglobin downtrending; no sign of active bleeding. Continue to monitor. Fecal occult blood pending Deep venous thrombosis prophylaxis: Lovenox. (2) Septic arthritis of ankle: FOOT and ANKLE MRI: MR ankle RT wo/w con, MR foot RT wo/w con HISTORY: Right ankle and foot swelling. osteomyelitis? TECHNIQUE: Multiplanar multisequence MRI of the right ankle and right forefoot was performed both before and after the intravenous administration of 9 cc of Gadavist contrast. COMPARISON STUDY: Right foot radiograph 05/17/2022. FINDINGS: There is again noted deformity within the calcaneus suggesting an old fracture. No definite acute fracture or dislocation within the ankle or foot. Th ere is diffuse soft tissue edema seen throughout the ankle and foot. No abnormal signal intensity or abnormal enhancement within the osseous structures of the forefoot to suggest an osteomyelitis. However, there is near diffuse signal abnormality within the talus and calcaneus as well as the distal fibula with associated patchy areas of enhancement probable erosive changes at the subtalar joint. Complex multiloculated joint effusions at the tibiotalar and subtalar joints with additional scattered peripheral enhancing fluid collections seen throughout the ankle. These findings suggest multifocal areas of osteomyelitis involving the talus, calcaneus, and distal fibula with probable septic arthritis at the subtalar joint. The multiloculated fluid collections are concerning for abscesses. Dominant fluid collection is seen tracking superiorly along the distal tibia and measures approximately 8.7 x 3.3 x 1.3 cm. Peripheral enhancing small fluid collections along the flexor and peroneal tendon sheaths. This suggests an infective tenosynovitis. IMPRESSION: 1. Abnormal signal intensity and enhancement seen throughout the majority of the talus and calcaneus concerning for an osteomyelitis. 2. Complex multiloculated joint effusions at the tibiotalar and subtalar joint with additional scattered peripheral enhancing fluid collection seen throughout the ankle and extending along the distal tibia. These findings are concerning for areas of septic arthritis with associated multiloculated abscesses. 3. No evidence for ostial myelitis within the forefoot. 4. Additional findings as described above. (3) Alcohol abuse with alcohol-induced disorder: (4) Diabetic foot infection: (5) Hyperglycemia due to type 2 diabetes mellitus: (6) Peripheral arterial disease:
[2022-05-19] MEDS ORDERED: VANCOMYCIN HCL 1,250 MG in SODIUM CHLORIDE 0.9% 250 ML IV SCH (04:00)
[2022-05-19 05:58] LABS: Basophils # (auto) 0.04 K/uL (0-0.2); Eosinophils # (auto) 0.33 K/uL (0-0.50); Eosinophils % (auto) 7.9 %; Hematocrit (blood only) 26.2 % (40.1-51.0); Hemoglobin 8.5 g/dl (14.0-18.0); Immature Granulocytes # (auto) 0.01 K/uL (0.00-0.02); Immature Granulocytes % (auto) 0.2 %; Lymphocytes # (auto) 0.74 K/uL (1.2-3.4); Lymphocytes % (auto) 17.8 %; Mean Corpuscular Hemoglobin 26.9 pg (25.0-34.0); Mean Corpuscular Hgb Conc 32.4 g/dL (32.0-36.0); Mean Corpuscular Volume 82.9 fL (80.0-100.0); Mean Platelet Volume 9.2 fL (9.4-12.4); Monocytes # (auto) 0.57 K/uL (0.24-0.82); Monocytes % (auto) 13.7 %; Neutrophils # (auto) 2.47 K/uL (1.4-6.5); Neutrophils % (auto) 59.4 %; Platelet Count 243 K/uL (130-400); RDW Standard Deviation 39.7 fL (36.4-46.3); Red Blood Count 3.16 M/uL (4.63-6.08); White Blood Count 4.16 K/ul (4.8-10.8)
[2022-05-19 06:15] LABS: BUN Creatinine Ratio 26.9 (10-20); Creatinine Clr Calc Pharmacy 71.2 ml/min; Est GFR (African American) 73.9 ml/min; Est GFR (Non-African American) 63.7 ml/min; Potassium 4.3 mmol/L (3.5-5.1)
[2022-05-19] MEDS ORDERED: Nursing to Pharmacy Communication SCH ×2 (07:15→11:15)
[2022-05-19] MEDS: INSULIN ASPART PER UNIT SC SCH ×3 (07:19→16:33)
[2022-05-19] MEDS: PIPERACILLIN/TAZOBACTAM 3.375 GM in DEXTROSE 5% 100 ML IV SCH ×2 (08:05→15:53)
[2022-05-19] MEDS: GADOBUTROL 65ML VIAL IV ONE ×2 (10:16→11:00)
[2022-05-19] MEDS ORDERED: GADOBUTROL 10ML VIAL IV ONE (10:35)
[2022-05-19] MEDS: ASPIRIN 81 MG ECTAB PO SCH (10:43)
[2022-05-19] MEDS: METOPROLOL SUCC 25MG EXT REL TAB PO SCH (10:44)
[2022-05-19] MEDS: lisinopril 5 MG TAB PO SCH (10:44)
[2022-05-19] MEDS: FOLIC ACID 1 MG TAB PO SCH (10:44)
[2022-05-19] MEDS: LANTUS PER UNIT CHARGE SQ SCH (10:58)
[2022-05-19] MEDS: THIAMINE HCL 100 MG TAB PO SCH (11:54)
[2022-05-19] MEDS: ATORVASTATIN 40 MG TAB PO SCH (11:54)
[2022-05-19] MEDS ORDERED: INSULIN ASPART PER UNIT SC SCH (12:00)
--- NOTE | 2022-05-19 12:26 | Orthopedic Consultation ---
Date of Consultation May 19, 2022 Assessment & Plan (1) Diabetic foot infection: 66-year-old male with right talus and calcaneus osteomyelitis with suspected infected abscess -Medical management -Nonweightbearing right lower extremity -Wound care -I had a discussion with the patient and we also had a lengthy discussion with hospitalist as well as transfer center. I do not perform any diabetic foot care or do foot and ankle as part of my practice. Unfortunately our foot and ankle provider recently left our group. The patient is currently seeking follow-up for his diabetic foot care. Based on this I do think that he would most appropriately be treated by a dedicated foot and ankle service who is able to provide him with in-house expertise for definitive care. Using transfer service we did discuss with [facility] regarding transfer the patient for his definitive care at their system. They are agreeable to transfer and will take care of the patient definitively. With that in mind the patient is clinically stable all vital signs are stable pain is well controlled. There are no signs of decompensation. We will plan on observation for the time being and hold off on any surgical intervention for the time being. History of Present Illness Reason for Consultation: Right ankle swelling/osteomyelitis Attending Physician: Dylon Ivey MD History of Present Illness 66-year-old male with a longstanding history of diabetic neuropathy presenting with a 1 week history of some increased pain and swelling over his right ankle. He does have a previous history of a calcaneal exostectomy back in October 2021. Since that time he has had issues with wound care and has followed at a local wound clinic. He presented to the emergency department and MRI was obtained which demonstrated a multiloculated fluid collection extending from the subtalar joint into the tibiotalar joint as well as the subcutaneous tissues. There also appeared to be changes consistent with osteomyelitis of the calcaneus in addition to the talus. Orthopedics was consulted for evaluation. Allergies Allergy/AdvReac Type Severity Reaction Status Date / Time No Known Allergies Allergy Verified 05/17/22 18:02 Home Medications Medication Instructions Recorded Confirmed Type atorvastatin 40 mg tablet 40 mg PO QAM #30 tabs 02/07/20 05/17/22 Rx insulin NPH isoph U-100 human 100 20 unit subcut BID 08/07/21 05/17/22 History unit/mL subcutaneous suspension (Novolin N NPH U-100 Insulin isophane) aspirin 81 mg tablet,delayed 81 mg PO BID #60 tabs 10/05/21 05/17/22 Rx release lisinopril 5 mg tablet 5 mg PO DAILY 01/18/22 05/17/22 History metoprolol succinate 25 mg 25 mg PO DAILY 01/18/22 05/17/22 History tablet,extended release 24 hr Patient History Medical History CAD (coronary artery disease) CABG x3 (2003) Chronic anemia Chronic refractory osteomyelitis of foot Diabetes mellitus, type 2 IDDM 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 HTN (hypertension) Pt reports stopped taking Lisinopril and Metoprolol approx 4 weeks ago bc "blood pressure is good" - says PCP is aware. Hyperlipidemia Myocardial Infarction 2003 Neuropathy Surgical History History of coronary artery bypass graft CABG x3 (2003) History of foot surgery Surgical debridement to R heel History of tooth extraction History of vasectomy S/P PICC central line placement removed Family History Father Multiple myeloma Other Diabetes No family history of adverse response to anesthesia Social History Smoking Status: Never smoker Second Hand Exposure: Yes; Hx Alcohol Use: Yes Alcohol type: beer Alcohol Intake Frequency: 2-3 x/Week Hx Substance Use: No Preferred Language: Icelandic Communication Ability: Effective Construction Contractor Required: No Beliefs That Will Affect Care: None marital status: Current Living Situation: Spouse current occupational status: retired How many Children do You have: 2 How many Children do You have Comment: two daughters with one that lives close to pt. able to assist with care as needed. Other Information That Helps Us Care for You: No Feels Safe at Home: Yes Safety Concerns: Feels Safe At This Time caffeine: Yes during the past year weight has: remained stable Gender Identity: Male Assistive Devices: Special Shoe Physical Exam Physical Exam: General: No acute distress, resting comfortably in bed watching TV, alert and oriented person place and time Musculoskeletal: Right lower extremity -There is erythema and swelling present over the entire hindfoot as well as tibiotalar joint, is able to actively dorsiflex and plantarflex without any significant pain. -There is a Mepilex dressing overlying the lateral aspect of the calcaneus for which she has been getting wound care - There is diminished sensation in a stocking-like distribution over the entire right foot -Fires TA/EHL/GSC -Palpable dorsalis pedis and posterior tibial pulses Results & Data ([facility]) Vital Signs (Past 12 Hours) Vital Signs Temp Pulse Resp BP Pulse Ox O2 Del Method 05/19/22 10:40 83 152/80 H 05/19/22 07:18 36.8 C 87 16 162/84 H 94 Room Air Diagnostic Findings MRI was obtained which demonstrated a multiloculated fluid collection extending from the subtalar joint into the tibiotalar joint as well as the subcutaneous tissues
[2022-05-19] MEDS ORDERED: LANTUS PER UNIT CHARGE SQ SCH (21:00)
--- NOTE | 2022-05-19 22:49 | Magnetic Resonance Report ---
MR lower leg RT wo/w con CLINICAL HISTORY: Rule out Osteomyelitis and abscess TECHNIQUE: Multisequence, multiplanar MR images of the right lower leg were obtained without contra st COMPARISON: Comparison is made to right ankle radiograph 05/18/2022 FINDINGS: Fluid collection in the anterior tibia measures 1.3 x 2.0 x 15.1 cm with rim enhancement, concerning for an abscess. A smaller rim-enhancing collection seen within the peroneus musculature. There is dif fusely increased signal in the musculature. No increased signal is seen in the tibia and fibula sandra rning for osteomyelitis. IMPRESSION: Abscesses are noted in the anterior calf. Diffusely increased signal in the leg musculature likely re presents myositis. However no proximal osteomyelitis is seen in the tibia and fibula. Please see rece nt MRI ankle for findings of osteomyelitis in the calcaneus and talus. ACT 112: Negative or not required by law. Electronically signed by: Gordon Erazo M.D. 05/19/2022 10:47 PM
[2022-05-20] MEDS ORDERED: GABAPENTIN 600 MG TAB PO SCH
[2022-05-20] MEDS ORDERED: VANCOMYCIN LEVEL ONE (04:44)
--- NOTE | 2022-05-20 14:31 | Discharge Summary ---
Date of Service May 19, 2022 Admission HPI Per Admitting Provider This is a 66-year-old male with past medical history significant for type 2 diabetes, diabetic right foot ulcer, diabetic peripheral neuropathy, hyperlipidemia, hypertension, CAD, obesity, history of osteomyelitis of the right foot, peripheral neuropathy, history of alcohol abuse, history of CABG, presents with right foot and ankle infection. The patient has been having infection for the long time, going on for the last 2 years. He thought it got better, but it is not getting better, and it is got worse lately, swelling in the right ankle and redness. He went to urgent care, was sent here. The patient denies any pain. He says he has neuropathy and does not have much feeling. He is able to walk on the leg. Denies any fever or chills. Currently, resting comfortably and hemodynamically stable. Denies any chest pain, no shortness of breath, no cough, no nausea, no vomiting, no abdominal pain. Normal bowel and bladder movements. No headache, no blurred visions, no earache, no runny nose, no sore throat. The patient states he drinks 4-6 beers every other day, last drink was 1 week ago. He does not think that he will go through withdrawal. Admission Exam Per Admitting Provider GENERAL: The patient is of moderate build, not in acute distress. VITAL SIGNS: Temperature 37.2, pulse 79, respiratory rate 18, blood pressure 113/95, oxygen 99% on room air. HEENT: Pupils equal, round and reactive to light. Oral mucosa moist. NECK: No JVD, no neck masses. CARDIOVASCULAR: S1 and S2 heard. Regular rate and rhythm. No murmur, no gallop. RESPIRATORY SYSTEM: Normal AP diameter. No accessory muscle use. No wheezing or crackles. ABDOMEN: Soft, bowel sounds present, nontender, no distention. CENTRAL NERVOUS SYSTEM: Cranial nerves II through XII grossly intact, nonfocal. EXTREMITIES: Right ankle and foot is swollen, erythematous and warm to palpation and there is dry ulcer seen in the right heel. Principal Diagnosis 1) Diabetic foot infection: (2) Septic arthritis of ankle: (3) Osteomyelitis of ankle: (4) Hyperglycemia due to type 2 diabetes mellitus Discharge Exam GENERAL: The patient is of moderate build, not in acute distress. VITAL SIGNS: Temperature 37.2, pulse 79, respiratory rate 18, blood pressure 113/95, oxygen 99% on room air. HEENT: Pupils equal, round and reactive to light. Oral mucosa moist. NECK: No JVD, no neck masses. CARDIOVASCULAR: S1 and S2 heard. Regular rate and rhythm. No murmur, no gallop. RESPIRATORY SYSTEM: Normal AP diameter. No accessory muscle use. No wheezing or crackles. ABDOMEN: Soft, bowel sounds present, nontender, no distention. CENTRAL NERVOUS SYSTEM: Cranial nerves II through XII grossly intact, nonfocal. EXTREMITIES: Right ankle and foot is swollen, erythematous and warm to palpation and there is dry ulcer seen in the right heel. Discharge Data Allergies Allergy/AdvReac Type Severity Reaction Status Date / Time No Known Allergies Allergy Verified 05/17/22 18:02 Consultations 05/17/22 19:34 ED Decision to Admit Stat 05/18/22 13:37 Consult Orthopedic Surgery Routine Ordered Studies 05/17/22 17:47 US venous doppler LE RT Stat 05/18/22 00:00 MR ankle RT wo/w con Routine MR foot RT wo/w con Routine 05/19/22 00:00 MR lower leg RT wo/w con Routine Hospital Course (1) Osteomyelitis of ankle: (2) Septic arthritis of ankle: (3) Diabetic foot infection: (4) Hyperglycemia due to type 2 diabetes mellitus: Plan This is a 66-year-old male with past medical history significant for type 2 diabetes, diabetic right foot ulcer, diabetic peripheral neuropathy, hyperlipidemia, hypertension, CAD, obesity, history of osteomyelitis of the right foot, peripheral neuropathy, history of alcohol abuse, history of CABG, presents with right foot and ankle redness, swelling. He was admitted to medical floor; started on Vanco and Zosyn. MRI of right foot and ankle was done; found to have extensive multiloculated abscess in his foot and ankle along with possible septic arthritis and osteomyelitis. Orthopedic was consulted. Recommendation was made to transfer the patient to tertiary care center due to the on availability of dedicated foot and ankle service. Transfer attempts were made to [facility]. Discussion was done with on-call Orthopedics; transfer was not accepted as there was no ankle and foot service av ailable there over the weekend. Discussed with on-call orthopedic at [facility] and hospitalist; patient accepted for transfer. Patient's vitals were stable throughout the admission. He was stable at the time of transfer. Total Time Total Time Spent Total Time Spent (In Minutes): 60 Total Time Includes: Examination of the Patient, Discharge Planning, Medication Reconciliation, Communication With Other Providers and Other Discharge Plan Discharge Items Patient Disposition: Transfer Acute Care Hospital Reason For Visit: INFECTION OF RIGHT FOOT Discharge Diagnosis: Diabetic foot. OM of talus and calcaneous bone Multiloculated joint effusions at tibiotalar and subtalar joint throughout ankle extending along the distal tibia. Uncontrolled DM Activity: Resume your previous activity Non-emergency contact: Primary Care Provider Call non-emergency contact if: you have any medication questions and your symptoms worsen Follow-up/Referrals: Axel Johnson MD [Primary Care Provider] - Diet: Carb Consistent or DM2 Addtl Attending Provider Instructions: Follow up with PCP after discharge Follow up with diabetic foot clinic after discharge. 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[employer] Provider Instructions: Date of Service: May 19, 2022 Current Inpatient Medications Acetaminophen (Acetaminophen 325 Mg Tab) 650 mg PO Q4H PRN PRN Reason: pain/fever Stop: 06/16/22 23:09 Aspirin (Aspirin 81 Mg Ectab) 81 mg PO BID [facility] Stop: 06/17/22 08:59 Last Admin: 05/19/22 10:43 Dose: 81 mg Atorvastatin Calcium (Atorvastatin 40 Mg Tab) 40 mg PO QAM AKUA Stop: 06/17/22 08:59 Last Admin: 05/19/22 11:54 Dose: 40 mg Dextrose (Dextrose 50% 50 Ml Syringe) 25 - 50 ml IV UD PRN; Protocol PRN Reason: Hypoglycemia Protocol Stop: 06/16/22 23:44 Enoxaparin Sodium (Enoxaparin Inj 40 Mg/0.4 Ml Syr) 40 mg SQ Q24H AKUA Stop: 06/17/22 08:59 Last Admin: 05/18/22 09:07 Dose: 40 mg Folic Acid (Folic Acid 1 Mg Tab) 1 mg PO QAM AKUA Stop: 06/16/22 23:09 Last Admin: 05/19/22 10:44 Dose: 1 mg Glucagon (Glucagon For Inj 1 Mg Vial) 1 mg IM UD PRN; Protocol PRN Reason: Hypoglycemia Protocol Stop: 06/16/22 23:44 Glucose (Glucose 40% Gel 15 Gm Tube) 15 - 30 gm PO UD PRN; Protocol PRN Reason: Hypoglycemia Protocol Stop: 06/16/22 23:44 Glucose (Glucose 10 Tab/Tube) 4 - 8 tab PO UD PRN; Protocol PRN Reason: Hypoglycemia Protocol Stop: 06/16/22 23:44 Piperacillin Sod/Tazobactam (Sod 3.375 gm/ Dextrose) 115 mls @ 28.75 mls/hr IV Q8H [facility]; Protocol Stop: 05/25/22 00:00 Last Infusion: 05/19/22 14:03 Dose: Infused Vancomycin HCl 1,250 mg/ (Sodium Chloride) 275 mls @ 200 mls/hr IV Q18H [facility]; Protocol Stop: 05/26/22 03:59 Last Infusion: 05/19/22 05:06 Dose: Infused Insulin Aspart (Insulin Aspart Per Unit) 0 units SC ACHS [facility] Stop: 06/18/22 11:29 Last Admin: 05/19/22 12:51 Dose: 7 units Insulin Glargine (Lantus Per Unit Charge) 15 units SQ BID [facility] Stop: 06/18/22 20:59 Lisinopril (Lisinopril 5 Mg Tab) 5 mg PO DAILY [facility] Stop: 06/17/22 08:59 Last Admin: 05/19/22 10:44 Dose: 5 mg Metoprolol Succinate (Metoprolol Succ 25mg Ext Rel Tab) 25 mg PO DAILY [facility] Stop: 06/17/22 08:59 Last Admin: 05/19/22 10:44 Dose: 25 mg Miscellaneous (Carbohydrates For Hypoglycemia ) 15 - 30 gm PO UD PRN PRN Reason: Hypoglycemia Treatment Stop: 06/16/22 23:44 Miscellaneous Information (Vancomycin Consult Active) 1 each N/A UD PRN PRN Reason: Consult Stop: 06/16/22 18:00 Polyethylene Glycol (Polyethylene (Miralax) 17 Gm Pack) 17 gm PO DAILY PRN PRN Reason: Constipation Stop: 06/16/22 23:09 Thiamine HCl (Thiamine Hcl 100 Mg Tab) 100 mg PO QAM [facility] Stop: 06/16/22 23:09 Last Admin: 05/19/22 11:54 Dose: 100 mg Pending Studies at Discharge: No Stand-Alone Forms: [facility] Skilled Items Patient informed of condition?: Yes DNR: No Discharge Level of Care: Other Communicable Disease: No Discharge Prognosis: Stable Lines: Peripheral IV Urinary Catheter: No Medications and DC Order Prescriptions: Continued atorvastatin 40 mg Tablet 40 mg PO QAM Qty: 30 5RF Novolin N NPH U-100 Insulin 100 unit/mL suspension 20 unit SUBCUT BID Rx Instructions: PER PT "SOMETIMES HAVE TO INCREASE DOSE DEPENDING ON WHAT I'M EATING". aspirin 81 mg tablet,delayed release (DR/EC) 81 mg PO BID Qty: 60 0RF lisinopril 5 mg Tablet 5 mg PO DAILY metoprolol succinate 25 mg Tablet Extended Release 24 Hr 25 mg PO DAILY Discharge Orders: Discharge Order (Routine); Ordered 05/19/22 Ordered By: Dylon Ivey Admission Data Admit Date/Time: 05/17/22 21:45 Attending Provider: Dylon Ivey Admit Provider: Lenny Olivo Primary Care Provider: Axel Johnson Other Providers: Lenny Olivo ; Raghavendra Hernández Other Interventions: Discharge Summary Assessment (RN) Last Done: 05/19/22 15:25
[2022-05-21] MEDS ORDERED: GABAPENTIN 600 MG TAB PO SCH (12:00)
== END 2022-05-19 18:18 | disposition short-term general hospital (02) | DRG 638 ==
LOC: ED 13:22 → 3E 21:45

== ENCOUNTER 2024-01-28 11:03 | Inpatient (IN) ==
--- NOTE | 2024-01-28 11:25 | Emergency Department Note ---
Impression & Plan Cellulitis, NATHAN (acute kidney injury), Acute hyponatremia ED Provider Note NAME: SLADE MENDOZA AGE: 68 SEX: M : 1955 ARRIVES VIA: Walk-In INFORMANT: Patient ED PROVIDER(S): Danny Amado DO CHIEF COMPLAINT: left knee pain HPI: Patient is a 68-year-old male with a past medical history of peripheral artery disease, diabetes, abscess who presents to the ER for left knee pain. He notes this been going on for over 2 weeks. Is located on the knee. When he takes an NSAID it completely resolves. Is worse with walking generally. He noticed some redness on the upper part of his brumfield about a week ago. He also admits to an ulcer on his left lateral brumfield which started several weeks ago. He notes it is improving. He denies any headache or change in vision, chest pain, shortness of breath, or diarrhea. He does admit to an episode of vomiting last night but has no belly pain. He then he has had this several times over the past week per the daughter who gives additional history from that ADDITIONAL HISTORY OBTAINED: Per HPI Chronic Medical/Social Conditions Affecting Care: Per HPI PAST MEDICAL HISTORY:See Below PAST SURGICAL HISTORY:See Below FAMILY HISTORY:See Below SOCIAL HISTORY:See Below HOME MEDICATIONS:See Below ALLERGIES:See Below VITALS:See Below PHYSICAL EXAMINATION: GENERAL: Sitting up in bed, alert, well appearing, well nourished, no distress, non-toxic EYE EXAM: normal conjunctiva. PERRL and EOM's grossly intact. OROPHARYNX: no exudate, no erythema, lips, buccal mucosa, and tongue normal and mucous membranes are moist NECK: supple, no nuchal rigidity, no adenopathy, non-tender LUNGS: Clear to auscultation. Normal chest wall mechanics HEART: no murmurs, S1 normal and S2 normal ABDOMEN: abdomen soft, non-tender, normo-active bowel sounds, no masses, no rebound or guarding. BACK: Back is symmetrical on inspection and there is no deformity, no midline tenderness, no CVA tenderness. SKIN: no rashes and no bruising UPPER EXTREMITIES: upper extremities are grossly normal. LOWER EXTREMITIES: Right BKA. Flexion-extension left hip, knee and ankle intact. Wound over the lateral distal tib-fib. No surrounding erythema. 1 cm x 2 cm with granulation tissue. Erythema over the left anterior lateral brumfield just below the tibial plateau. Skin is warm and slightly tender. Does not involve the knee. NEURO EXAM: Normal sensorium, cranial nerves II-XII grossly intact, normal speech, no gross weakness of arms, no gross weakness of legs. MEDICAL DECISION MAKING: Patient is a 68 male who presents ER for above-stated complaint. IV was established medicals obtained. Labs show no significant leukocytosis or anemia. BMP with mild hyponatremia at 128. Creatinine at 1.9 up from baseline of 1. LFTs were unremarkable. Has an overlying cellulitis over the left anterior brumfield. Patient was given IV Rocephin and IV fluids. Updated bedside. Discussed case with the hospitalist for further evaluation management treatment. Patient was updated bedside. Consults/Care Managements Discussions: Per [facility] Triage Nursing notes reviewed. Limited review of prior medical records performed Vital Signs: reviewed and remarkable for no significant abnormalities Differential diagnosis: Cellulitis, abscess, MRSA infection, DVT, necrotizing fasciitis, dermatitis, drug eruption, allergic reaction, as well as other pathologies. ER treatment provided: See below Diagnostics interpreted by me include EKG and cardiac monitoring as listed below: -Cardiac Monitoring: An order was placed for continuous cardiac monitoring. The monitor shows a rate of 90 with sinus rhythm. -ECG: none -Laboratory studies:Interpreted by me as stated above in MDM and shown below. Imaging studies: Xrays: As interpreted by me: X-rays left knee show no acute fracture CTs show: none Procedures:none Critical Care: None Past Med/Surg History Problem List Acute hyponatremia (Acute) NATHAN (acute kidney injury) (Acute) Cellulitis (Acute) Left leg cellulitis Hyponatremia Leg wound, left Osteomyelitis of ankle Septic arthritis of ankle Diabetic foot infection (Acute) Hyperglycemia due to type 2 diabetes mellitus (Acute) Peripheral arterial disease (Chronic) Hypertension (Acute) Diabetic ulcer of toe of left foot (Acute) Diabetes mellitus, type 2 (Chronic) IDDM Traumatic wound (Acute) Dermatophytosis (Acute) Soft tissue mass (Acute) Abscess (Acute) Diabetic ulcer of right great toe (Acute) DVT prophylaxis SARS-CoV-2 positive Osteomyelitis (Acute) High serum chloride (Acute) COVID-19 (Acute) Encounter for pre-operative examination Ulcer of right heel and midfoot with necrosis of bone Acute osteomyelitis of right calcaneus (Chronic) Osteomyelitis (Acute) History of foot surgery Surgical debridement to R heel Medical History Acute kidney injury Alcohol abuse with alcohol-induced disorder History of COVID-19 > 1 year ago; resolved. HTN (hypertension) Pt reports stopped taking Lisinopril and Metoprolol approx 4 weeks ago bc "blood pressure is good" - says PCP is aware. 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 Diabetic ulcer of left foot due to type 2 diabetes mellitus CAD (coronary artery disease) CABG x3 (2003) Neuropathy Surgical History History of tooth extraction History of coronary artery bypass graft CABG x3 (2003) History of vasectomy S/P PICC central line placement removed Family History Father Multiple myeloma Other Diabetes No family history of adverse response to anesthesia Social History Smoking Status: Never smoker Second Hand Exposure: Yes; Do You Dip or Chew Tobacco: No; Hx Alcohol Use: Yes Alcohol type: beer Alcohol Intake Frequency: 2-3 x/Week Alcohol Intake Frequency Comment: -11/19/21-Pt states he no longer consumes alcohol Hx Substance Use: No Preferred Language: Cameroonian Communication Ability: Effective 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 able to assist with care as needed. Feels Safe at Home: Yes Diet: diabetic and regular caffeine: Yes during the past year weight has: remained stable Gender Identity: Male Assistive Devices: Special Shoe Allergies Allergies Allergy/AdvReac Type Severity Reaction Status Date / Time No Known Allergies Allergy Verified 01/28/24 13:30 Home Meds Home Medications Medication Instructions Recorded Confirmed insulin NPH isoph U-100 human 100 0 unit subcut QAM 08/07/21 01/28/24 unit/mL subcutaneous suspension (Novolin N NPH U-100 Insulin isophane) lisinopril 5 mg tablet 5 mg PO DAILY 01/18/22 01/28/24 metoprolol succinate 25 mg 25 mg PO DAILY 01/18/22 01/28/24 tablet,extended release 24 hr Previous Rx's Medication Instructions Recorded atorvastatin 40 mg tablet 40 mg PO QAM #30 tabs 02/07/20 Results & Data (ED) Vital Signs Vital Signs - 24 hr 01/28/24 11:05 01/28/24 13:03 Temperature 36.4 C L Temperature Source Temporal Artery Scan Pulse Rate 95 H Pulse Rate [Right Finger] 87 Respiratory Rate 20 18 Blood Pressure 121/74 Blood Pressure [Right Arm] 162/95 H Blood Pressure Mean 89 Blood Pressure Mean [Right Arm] 117 Pulse Oximetry 97 100 Oxygen Delivery Method Room Air Sepsis New/Unexplained Change in Mental Status N/A Sepsis Action Taken by Nursing No Action Required Laboratory Data 01/28/24 11:49 01/28/24 11:49 Lab Results 01/28/24 Range/Units 11:49 WBC 8.28 (4.8-10.8) K/ul RBC 3.97 L (4.70-6.10) M/uL Hgb 11.7 L (14.0-18.0) g/dl Hct 32.8 L (42.0-52.0) % MCV 82.6 (80.0-100.0) fL MCH 29.5 (25.0-34.0) pg MCHC 35.7 (32.0-36.0) g/dL RDW Std Deviation 36.9 (36.4-46.3) fL RDW Coeff of Mau 12.1 (11.5-14.5) % Plt Count 219 (130-400) K/uL MPV 9.9 (9.4-12.4) fL Immature Gran % (Auto) 0.4 % Neut % (Auto) 78.1 % Lymph % (Auto) 9.9 % Victoria % (Auto) 9.4 % Eos % (Auto) 1.8 % Baso % (Auto) 0.4 % Neut # (Auto) 6.47 (1.40-6.50) K/uL Lymph # (Auto) 0.82 L (1.20-3.40) K/uL Victoria # (Auto) 0.78 H (0.11-0.59) K/uL Eos # (Auto) 0.15 (0.00-0.50) K/uL Baso # (Auto) 0.03 (0.00-0.20) K/uL Immature Gran # (Auto) 0.03 (0.01-0.20) K/uL ESR 108 H (0-20) mm/hr Sodium 128 L (136-145) mmol/L Potassium 4.0 (3.5-5.1) mmol/L Chloride 93 L (98-107) mmol/L Carbon Dioxide 24 (21-32) mmol/L Anion Gap 11 (3-11) BUN 42 H (6-23) mg/dl Creatinine 1.93 H (0.6-1.4) mg/dl Est Cr Clr Drug Dosing 44.3 ml/min Est GFR ( Amer) 40.6 ml/min Est GFR (Non-Af Amer) 35.0 ml/min BUN/Creatinine Ratio 21.8 H (10-20) Glucose 151 H (70-99(Fasting)) mg/dl Calcium 9.7 (8.6-10.3) mg/dl Total Bilirubin 0.4 (0.2-1.0) mg/dl AST 24 (13-39) U/L ALT 23 (7-52) U/L Alkaline Phosphatase 93 (34-104) U/L Total Creatine Kinase 208 (30-223) U/L C-Reactive Protein 25.97 H (0-0.5) mg/dl Total Protein 8.4 H (6.0-8.3) gm/dl Albumin 3.9 (3.4-5.0) gm/dl Globulin 4.5 H (2.5-4.0) gm/dl Albumin/Globulin Ratio 0.9 (0.9-2) Lipase 15 (11-82) U/L Administered Medications Daptomycin 500 mg/ Syringe 10 mls @ 5 mls/min IV Q24H AKUA; Protocol Stop: 02/04/24 15:29 Last Admin: 01/28/24 15:01 Dose: 5 mls/min Documented By: NRB Oxycodone HCl (Oxycodone Hcl Ir 5 Mg Tab (Immediate Release)) 5 mg PO Q8H PRN PRN Reason: Pain Stop: 02/11/24 15:28 Last Admin: 01/28/24 15:52 Dose: 5 mg Documented By: NRB Discontinued Medications Ceftriaxone Sodium (Rocephin) 2,000 mg in 50 mls @ 100 mls/hr IV NOW STA Stop: 01/28/24 11:51 Last Infusion: 01/28/24 12:49 Dose: Infused Documented By: Admin: 01/28/24 12:16 Dose: 100 mls/hr Documented By: NRStone Sodium Chloride (Nss) 1,000 mls @ 999 mls/hr IV .Q1H1M ONE Stop: 01/28/24 13:47 Last Infusion: 01/28/24 14:26 Dose: Infused Documented By: NRStone Admin: 01/28/24 12:59 Dose: 999 mls/hr Documented By: MR Vancomycin HCl 2,000 mg/ (Sodium Chloride) 540 mls @ 200 mls/hr IV NOW ONE Stop: 01/28/24 16:33 Last Admin: 01/28/24 14:26 Dose: Not Given Documented By: CHANDNI Piperacillin Sod/Tazobactam (Sod 4.5 gm/ Dextrose) 100 mls @ 200 mls/hr IV NOW ONE; Protocol Stop: 01/28/24 14:44 Last Infusion: 01/28/24 15:55 Dose: Infused Documented By: Admin: 01/28/24 15:21 Dose: 200 mls/hr Documented By: CHANDNI Imaging Data Radiologist's Impression: Knee X-Ray 01/28/24 11:22 XR knee LT 3V CLINICAL HISTORY: l knee pain TECHNIQUE: 3 views of the left knee were obtained. Comparison: None available at the time of this dictation. FINDINGS: There is no evidence of an acute fracture. Joint spaces are well-preserved. No joint effusion is seen. No soft tissue abnormality is seen. IMPRESSION: No evidence of acute osseous injury. ACT 112: Negative or not required by law. Electronically signed by: Gordon Erazo M.D. 01/28/2024 12:[address] 01/28/24 13:52 LEFT TIBIA/FIBULA CT CT DOSE: 301.82 mGy.cm HISTORY: Left lower leg infection. Include Knee, Rule out underlying abscess TECHNIQUE: Multiaxial CT images of the left tibia/fibula were performed and reformatted in the sagittal and coronal plane without the use of contrast. A dose lowering technique was utilized adhering to the principles of ALARA. COMPARISON: Left knee radiograph 01/28/2024. FINDINGS: There is a partially visualized small left knee effusion. Skin thickening and subcutaneous edema seen throughout the left lower leg most pronounced anteriorly. No definite loculated fluid collections on this noncontrast study to suggest an abscess. No soft tissue gas or foreign bodies identified. Vascular calcifications are noted. No fracture or dislocation within the left tibia or fibula. No bony destructive changes to suggest an osteomyelitis. IMPRESSION: 1. Skin thickening and subcutaneous edema throughout the left lower leg. This may represent a cellulitis. 2. No loculated fluid collections on this noncontrast study to suggest an abscess. 3. No evidence for osteomyelitis. ACT 112: Negative or not required by law. Electronically signed by: Scar Calvert M.D. 01/28/2024 3:26 PM Discharge Plan Visit Data Chief Complaint: Leg Injury/Pain Stated Complaint: LEG INFECTION, KNEE PAIN ED Provider: Danny Amado Discharge Problem: Cellulitis, NATHAN (acute kidney injury), Acute hyponatremia Patient Disposition: Admitted As Inpatient Discharge Instructions Interventions: ED Discharge Assessment Last Done: 01/28/24 16:44 Discharge Problem: Cellulitis Qualifiers: Site of cellulitis: unspecified site Qualified Code(s): L03.90 - Cellulitis, unspecified
[2024-01-28 12:13] LABS: Basophils # (auto) 0.03 K/uL (0.00-0.20); Basophils % (auto) 0.4 %; Eosinophils # (auto) 0.15 K/uL (0.00-0.50); Eosinophils % (auto) 1.8 %; Hematocrit (blood only) 32.8 % (42.0-52.0); Hemoglobin 11.7 g/dl (14.0-18.0); Immature Granulocytes # (auto) 0.03 K/uL (0.01-0.20); Immature Granulocytes % (auto) 0.4 %; Lymphocytes # (auto) 0.82 K/uL (1.20-3.40); Lymphocytes % (auto) 9.9 %; Mean Corpuscular Hemoglobin 29.5 pg (25.0-34.0); Mean Corpuscular Hgb Conc 35.7 g/dL (32.0-36.0); Mean Corpuscular Volume 82.6 fL (80.0-100.0); Mean Platelet Volume 9.9 fL (9.4-12.4); Monocytes # (auto) 0.78 K/uL (0.11-0.59); Monocytes % (auto) 9.4 %; Neutrophils # (auto) 6.47 K/uL (1.40-6.50); Neutrophils % (auto) 78.1 %; Platelet Count 219 K/uL (130-400); RDW Coefficient of Variation 12.1 % (11.5-14.5); RDW Standard Deviation 36.9 fL (36.4-46.3); Red Blood Count 3.97 M/uL (4.70-6.10); White Blood Count 8.28 K/ul (4.8-10.8)
[2024-01-28] MEDS: cefTRIAXone SODIUM 2,000 MG/50 ML BAG IV STA (12:16)
--- NOTE | 2024-01-28 12:19 | XRay Report ---
XR knee LT 3V CLINICAL HISTORY: l knee pain TECHNIQUE: 3 views of the left knee were obtained. Comparison: None available at the time of this dictation. FINDINGS: There is no evidence of an acute fracture. Joint spaces are well-preserved. No joint effusion is seen . No soft tissue abnormality is seen. IMPRESSION: No evidence of acute osseous injury. ACT 112: Negative or not required by law. Electronically signed by: Gordon Erazo M.D. 01/28/2024 12:18 PM
[2024-01-28 12:27] LABS: Albumin Globulin Ratio 0.9 (0.9-2); Albumin Level 3.9 gm/dl (3.4-5.0); BUN Creatinine Ratio 21.8 (10-20); Bilirubin,Total 0.4 mg/dl (0.2-1.0); Calcium 9.7 mg/dl (8.6-10.3); Creatinine Clr Calc Pharmacy 44.3 ml/min; Est GFR (African American) 40.6 ml/min; Globulin 4.5 gm/dl (2.5-4.0); Total Protein 8.4 gm/dl (6.0-8.3)
[2024-01-28] MEDS: SODIUM CHLORIDE 0.9% 1,000 ML IV ONE (12:59)
[2024-01-28] MEDS ORDERED: VANCOMYCIN CONSULT ACTIVE PRN (13:52)
[2024-01-28] MEDS ORDERED: GLUCOSE 10 TAB/TUBE PO PRN (13:55)
[2024-01-28] MEDS ORDERED: POLYETHYLENE (MIRALAX) 17 GM PACK PO PRN (13:55)
[2024-01-28] MEDS ORDERED: GLUCOSE 40% GEL 15 GM TUBE PO PRN (13:55)
[2024-01-28] MEDS ORDERED: DEXTROSE 50% 50 ML SYRINGE IV PRN (13:55)
[2024-01-28] MEDS ORDERED: ALUMINUM/MAGNESIUM SUSP 30 ML UDC PO PRN (13:55)
[2024-01-28] MEDS ORDERED: GLUCAGON FOR INJ 1 MG VIAL SQ PRN (13:55)
[2024-01-28] MEDS ORDERED: PHARMACY GLYCEMIC MGMT CONSULT PRN (13:55)
[2024-01-28] MEDS ORDERED: CARBOHYDRATES FOR HYPOGLYCEMIA PO PRN (13:55)
[2024-01-28] MEDS: VANCOMYCIN HCL 2,000 MG in SODIUM CHLORIDE 0.9% 500 ML IV ONE (14:26)
[2024-01-28 14:28] LABS: C Reactive Protein 25.97 mg/dl (0-0.5)
--- NOTE | 2024-01-28 14:46 | Orthopedic Consultation ---
Date of Service January 28, 2024 Assessment & Plan (1) Leg wound, left: He was seen and examined by Dr. Connelly today as well. No sign of septic knee joint at this time. His pain and redness seem to be more distal. No surgery needed at this time. He is being admitted to the Hospitalist service. Recommend IV antibiotics for cellulitis, wound care consult for the lateral lower leg wounds, and recommend a vascular consult. Will continue to follow. (2) Left leg cellulitis: History of Present Illness Reason for Consultation: . Requesting Physician: . . Sumeet is a 68 year old patient here with left leg/knee pain. He is diabetic. He has a h/o right lower leg infections treated several years ago, eventually underwent right bka at [facility] in 2021. He said his left knee has been painful and red for about a week. No injury. He has a wound on the lateral lower leg which has been present for about a month. Denies any treatment yet. Allergies Allergy/AdvReac Type Severity Reaction Status Date / Time No Known Allergies Allergy Verified 01/28/24 13:30 Home Medications Medication Instructions Recorded Confirmed Type atorvastatin 40 mg tablet 40 mg PO QAM #30 tabs 02/07/20 01/28/24 Rx insulin NPH isoph U-100 human 100 0 unit subcut QAM 08/07/21 01/28/24 History unit/mL subcutaneous suspension (Novolin N NPH U-100 Insulin isophane) lisinopril 5 mg tablet 5 mg PO DAILY 01/18/22 01/28/24 History metoprolol succinate 25 mg 25 mg PO DAILY 01/18/22 01/28/24 History tablet,extended release 24 hr Past Med/Surg History Problem List Left leg cellulitis Hyponatremia Leg wound, left Osteomyelitis of ankle Septic arthritis of ankle Diabetic foot infection (Acute) Hyperglycemia due to type 2 diabetes mellitus (Acute) Peripheral arterial disease (Chronic) Hypertension (Acute) Diabetic ulcer of toe of left foot (Acute) Diabetes mellitus, type 2 (Chronic) IDDM Traumatic wound (Acute) Dermatophytosis (Acute) Soft tissue mass (Acute) Abscess (Acute) Diabetic ulcer of right great toe (Acute) DVT prophylaxis SARS-CoV-2 positive Osteomyelitis (Acute) High serum chloride (Acute) COVID-19 (Acute) Encounter for pre-operative examination Ulcer of right heel and midfoot with necrosis of bone Acute osteomyelitis of right calcaneus (Chronic) Osteomyelitis (Acute) History of foot surgery Surgical debridement to R heel Medical History Acute kidney injury Alcohol abuse with alcohol-induced disorder History of COVID-19 > 1 year ago; resolved. HTN (hypertension) Pt reports stopped taking Lisinopril and Metoprolol approx 4 weeks ago bc "blood pressure is good" - says PCP is aware. 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 Diabetic ulcer of left foot due to type 2 diabetes mellitus CAD (coronary artery disease) CABG x3 (2003) Neuropathy Surgical History History of tooth extraction History of coronary artery bypass graft CABG x3 (2003) History of vasectomy S/P PICC central line placement removed Family History Father Multiple myeloma Other Diabetes No family history of adverse response to anesthesia Social History Smoking Status: Never smoker Second Hand Exposure: Yes; Do You Dip or Chew Tobacco: No; Hx Alcohol Use: Yes Alcohol type: beer Alcohol Intake Frequency: 2-3 x/Week Alcohol Intake Frequency Comment: -11/19/21-Pt states he no longer consumes alcohol Hx Substance Use: No Preferred Language: French Communication Ability: Effective 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 able to assist with care as needed. Feels Safe at Home: Yes Diet: diabetic and regular caffeine: Yes during the past year weight has: remained stable Gender Identity: Male Assistive Devices: Special Shoe Review of Systems All systems reviewed & are unremarkable except as noted in HPI & below. Physical Exam .alert and oriented. NAD Left leg: He has 2 wounds on the lateral lower leg. Some erythema of the lower leg including inferior to his knee anteriorly over the patella tendon area. Trace knee effusion. He can do a straight leg raise. Knee motion is 0-90 degrees without really any knee pain. No fluid in the prepatella bursa. esr 108 crp 25.97 Results & Data Results & Data Laboratory Results . Diagnostic Findings . PG Care Time/CCT Total # of Minutes Spent Total Time Spent with Patient: Total time spent is greater than 50% in coordination of care (as documented) at patient's floor/unit and/or counseling patient: Coding Level of Care Code 93714 IN/OBS CONSULT LVL 3,45M Diagnoses Leg wound, left S81.802A Left leg cellulitis L03.116
--- NOTE | 2024-01-28 14:47 | Pharmacy Report ---
Pharmacy Glycemic Short Note 2 - Date of Service January 28, 2024 - Glycemic Short BSG Results (Last 24 hours): 01/28/24 11:49 Glucose 151 H OUTPATIENT ANTIDIABETIC REGIMEN: * NPH -- pt states that he uses a sliding scale but is unsure of dose(s); questi on compliance * In the past, pt was using 15 units SQ BID, per outpt records * HbA1c: 8.4% (01/28/23), updated A1c pending with AM labs ASSESSMENT: * Mr Jean is a 68yo diabetic M admitted with a leg infection/?abscess. * He is currently receiving daptomycin and Zosyn and is NPO w/ a pending surgical consult. * SQ basal/bolus insulin regimen initiated on admission, conservatively to start * Pharmacy will continue to follow and adjust regimen as indicated. PLAN FOR INPATIENT GLYCEMIC CONTROL: * Hold outpatient oral diabetes medications * Basal insulin * Lantus 10 units SQ x1 dose * re-eval tomorrow morning * Bolus insulin * NovoLog per scale ACHS or Q6hrs while NPO * Goal Range: Low 120 mg/dL - High 150 mg/dL * Correction Factor: 40 mg/dL/unit * Nutritional / Prandial insulin per carb ratio of 1 unit per 15 grams CHO consumed
--- NOTE | 2024-01-28 14:57 | History & Physical Report ---
Date of Service January 28, 2024 Assessment & Plan (1) Leg wound, left: Plan: Patient is a 68-year-old male with Past medical history of type 1 diabetes mellitus complicated by bilateral peripheral neuropathy, CAD status post CABG x 3, hyperlipidemia, right ankle abscess status post BKA in [facility] in May 2022 Presents with progressive left leg wound Left leg wound, cellulitis Left knee pain, rule out septic arthritis Patient presents with left leg wound with progressive redness for 2 weeks. [id number] History of right-sided BKA for septic arthritis/osteomyelitis. X-ray kneeno acute finding No leukocytosis Started on Daptomycin and Zosyn. Obtain blood cx Obtain CT of the leg to rule out underlying abscess. Might need MRI depending on the results. Will obtain orthopedic consultation given left knee pain to rule out septic arthritis. wound care consult (2) Acute kidney injury: (3) Hyponatremia: Plan: BMP on admission shows creatinine of 1.93 and sodium of 128 Last creatinine was 1.19 in May 2022 Will start on IV fluids BMP daily Avoid nephrotoxic agent. Chronic conditions; Type 2 diabetes mellitus status - on insulin NPH at home; started on Lantus and glargine. History of CAD status post CABG status on Lipitor, currently on hold as patient is on daptomycin. Not on aspirin. Hypertensioncontinue lisinopril and metoprolol Full code DVT prophylaxisSCDs; to be started on pharmacological PPx if no plan for intervention as per orthopedic Time spent evaluating patient, direct bedside care, chart review, placing orders, interpretation of diagnostic studies, discussion with consultants, patient, and family members, as well as other required patient management activities is 75-minute Please note the above document was generated using voice recognition software. It may contain grammatical, syntax or spelling errors. Any formal questions or concerns about the content, text or information contained within the body of this dictation should be directly addressed to the provider for clarification History of Present Illness Chief Complaint: Left leg wound for 2 weeks Primary Care Provider: Axel Johnson MD History obtained from chart review and interview with patient, patient's Past medical history of type 1 diabetes mellitus complicated by bilateral peripheral neuropathy, CAD status post CABG x 3, hyperlipidemia, right ankle abscess status post BKA in [facility] in May 2022 Last confinement in May 2022 for right leg wound; required transfer out to [facility] for BKA. Patient reports that he sustained a wound on his left leg just above the ankle 2 weeks ago. He noticed increasing redness and swelling on his leg going up to his knees. He noticed that his knee was getting painful as well which led to difficulty in ambulation. He reports of generalized fatigue and weakness. He denies fever or chills. On presentation to the ED, he was afebrile, normotensive and saturating well on room air. No leukocytosis present, CMP revealed serum sodium of 128, BUN/creatinine of 42/1.93. Knee x-ray was done which did not show any acute finding. Patient was referred for admission. Allergies Allergy/AdvReac Type Severity Reaction Status Date / Time No Known Allergies Allergy Verified 01/28/24 13:30 Home Medications Medication Instructions Recorded Confirmed Type atorvastatin 40 mg tablet 40 mg PO QAM #30 tabs 02/07/20 01/28/24 Rx insulin NPH isoph U-100 human 100 0 unit subcut QAM 08/07/21 01/28/24 History unit/mL subcutaneous suspension (Novolin N NPH U-100 Insulin isophane) lisinopril 5 mg tablet 5 mg PO DAILY 01/18/22 01/28/24 History metoprolol succinate 25 mg 25 mg PO DAILY 01/18/22 01/28/24 History tablet,extended release 24 hr Past Med/Surg History Problem List Hyponatremia Leg wound, left Osteomyelitis of ankle Septic arthritis of ankle Diabetic foot infection (Acute) Hyperglycemia due to type 2 diabetes mellitus (Acute) Peripheral arterial disease (Chronic) Hypertension (Acute) Diabetic ulcer of toe of left foot (Acute) Diabetes mellitus, type 2 (Chronic) IDDM Traumatic wound (Acute) Dermatophytosis (Acute) Soft tissue mass (Acute) Abscess (Acute) Diabetic ulcer of right great toe (Acute) DVT prophylaxis SARS-CoV-2 positive Osteomyelitis (Acute) High serum chloride (Acute) COVID-19 (Acute) Encounter for pre-operative examination Ulcer of right heel and midfoot with necrosis of bone Acute osteomyelitis of right calcaneus (Chronic) Osteomyelitis (Acute) History of foot surgery Surgical debridement to R heel Medical History CAD (coronary artery disease) CABG x3 (2003) Chronic anemia Chronic refractory osteomyelitis of foot Diabetes mellitus, type 2 IDDM 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 HTN (hypertension) Pt reports stopped taking Lisinopril and Metoprolol approx 4 weeks ago bc "blood pressure is good" - says PCP is aware. Hyperlipidemia Myocardial Infarction 2004 Neuropathy Surgical History History of coronary artery bypass graft CABG x3 (2003) History of foot surgery Surgical debridement to R heel History of tooth extraction History of vasectomy S/P PICC central line placement removed Family History Father Multiple myeloma Other Diabetes No family history of adverse response to anesthesia Social History Smoking Status: Never smoker Second Hand Exposure: Yes; Do You Dip or Chew Tobacco: No; Hx Alcohol Use: Yes Alcohol type: beer Alcohol Intake Frequency: 2-3 x/Week Alcohol Intake Frequency Comment: -11/19/21-Pt states he no longer consumes alcohol Hx Substance Use: No Preferred Language: Yi Communication Ability: Effective 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 able to assist with care as needed. Feels Safe at Home: Yes Diet: diabetic and regular caffeine: Yes during the past year weight has: remained stable Gender Identity: Male Assistive Devices: Special Shoe Physical Exam Physical Exam: On physical examination; Constitutional: Alert oriented x 3; not in distress. Respiratory: Bilateral vesicular breath sound. Cardiovascular: RRR, no murmur, no edema Vessels: no JVD or carotid bruit Chest: normal inspection of chest Abdomen: normal bowel sounds, soft, nontender, no hepatosplenomegaly Musculoskeletal: Open wound on left leg just above ankle on lateral aspect; redness surrounding the area tracking up to the knee. No knee swelling or erythema. ROM painful. Right leg- BKA. DP palpable in left foot. Neurologic: PERRL, EOMI, accommodation nl, no face palsy, no dysarthria CN's II- XI intact bilaterally and moves all extremities Psychiatric: A+Ox3, euthymic affect Results & Data Results & Data Vital Signs (Past 12 Hours) Vital Signs Temp Pulse Pulse Resp BP BP Pulse Ox 01/28/24 14:37 80 18 163/94 H 100 01/28/24 13:03 87 18 162/95 H 100 01/28/24 11:05 36.4 C L 95 H 20 121/74 97 O2 Del Method 01/28/24 14:37 Room Air 01/28/24 13:03 Room Air 01/28/24 11:05
[2024-01-28] MEDS: DAPTOmycin 500 MG in SYRINGE 0 ML IV SCH (15:01)
[2024-01-28] MEDS: PIPER/TAZO 4.5g in D5W MINI-B 100 ML IV ONE (15:21)
--- NOTE | 2024-01-28 15:27 | CT Scan Report ---
LEFT TIBIA/FIBULA CT CT DOSE: 301.82 mGy.cm HISTORY: Left lower leg infection. Include Knee, Rule out underlying abscess TECHNIQUE: Multiaxial CT images of the left tibia/fibula were performed and reformatted in the sagitt al and coronal plane without the use of contrast. A dose lowering technique was utilized adhering to the principles of ALARA. COMPARISON: Left knee radiograph 01/28/2024. FINDINGS: There is a partially visualized small left knee effusion. Skin thickening and subcutaneous edema seen throughout the left lower leg most pronounced anteriorly. No definite loculated fluid zach ections on this noncontrast study to suggest an abscess. No soft tissue gas or foreign bodies identif ied. Vascular calcifications are noted. No fracture or dislocation within the left tibia or fibula. N o bony destructive changes to suggest an osteomyelitis. IMPRESSION: 1. Skin thickening and subcutaneous edema throughout the left lower leg. This may represent a celluli tis. 2. No loculated fluid collections on this noncontrast study to suggest an abscess. 3. No evidence for osteomyelitis. ACT 112: Negative or not required by law. Electronically signed by: Scar Calvert M.D. 01/28/2024 3:26 PM
[2024-01-28 15:28] LABS: Appearance Urine Clear (Clear); Bacteria Urine Automated None Seen (None Seen); Bilirubin Urine Negative (Negative); Blood Urine Negative (Negative); Color Urine Yellow; Epithelial Cell Urine Auto 0-2 /hpf (0-2); Glucose Urine UA Trace (Negative); Ketones Urine Trace (Negative); Leukocyte Esterase Urine Negative (Negative); Nitrite Urine Negative (Negative); Protein Urine 3+ (Negative); RBC Urine Automated 0-2 /hpf (0-2); Specific Gravity Urine 1.015 (1.000-1.030); Urobilinogen Urine Negative (Negative); WBC Urine Automated 0-5 /hpf (0-5); pH Urine 5.5 (4.5-7.5)
[2024-01-28] MEDS ORDERED: ACETAMINOPHEN 325 MG TAB PO PRN (15:29)
[2024-01-28] MEDS: oxyCODONE HCL IR 5 MG TAB (IMMEDIATE RELEASE) PO PRN (15:52)
[2024-01-28] MEDS: LACTATED RINGER'S 1,000 ML IV SCH (17:09)
[2024-01-28] MEDS ORDERED: Nursing to Pharmacy Communication SCH (17:30)
[2024-01-28] MEDS ORDERED: INSULIN ASPART PER UNIT CHARGE SC SCH (18:00)
[2024-01-28] MEDS: LANTUS PER UNIT CHARGE SQ ONE (18:11)
[2024-01-28] MEDS: INSULIN ASPART PER UNIT CHARGE SC ONE (18:11)
[2024-01-28] MEDS: PIPERACILLIN/TAZOBACTAM 4.5 GM in DEXTROSE 5% MINI-B 100 ML IV SCH (20:12)
[2024-01-28] MEDS: INSULIN ASPART PER UNIT CHARGE SC SCH (20:50)
[2024-01-28] MEDS: HEPARIN SOD 5,000 UNIT/0.5 ML VIAL SQ SCH (20:50)
[2024-01-29] MEDS: ACETAMINOPHEN 325 MG TAB PO PRN (03:53)
[2024-01-29 06:43] LABS: Basophils # (auto) 0.03 K/uL (0.00-0.20); Basophils % (auto) 0.5 %; Eosinophils # (auto) 0.18 K/uL (0.00-0.50); Eosinophils % (auto) 2.9 %; Hematocrit (blood only) 29.8 % (42.0-52.0); Hemoglobin 10.3 g/dl (14.0-18.0); Immature Granulocytes # (auto) 0.02 K/uL (0.01-0.20); Immature Granulocytes % (auto) 0.3 %; Lymphocytes # (auto) 0.52 K/uL (1.20-3.40); Lymphocytes % (auto) 8.5 %; Mean Corpuscular Hemoglobin 29.8 pg (25.0-34.0); Mean Corpuscular Hgb Conc 34.6 g/dL (32.0-36.0); Mean Corpuscular Volume 86.1 fL (80.0-100.0); Mean Platelet Volume 9.9 fL (9.4-12.4); Monocytes # (auto) 0.67 K/uL (0.11-0.59); Monocytes % (auto) 10.9 %; Neutrophils % (auto) 76.9 %; Platelet Count 179 K/uL (130-400); RDW Coefficient of Variation 12.1 % (11.5-14.5); RDW Standard Deviation 38.3 fL (36.4-46.3); Red Blood Count 3.46 M/uL (4.70-6.10); White Blood Count 6.12 K/ul (4.8-10.8)
[2024-01-29 07:03] LABS: BUN Creatinine Ratio 21.4 (10-20); Calcium 8.5 mg/dl (8.6-10.3); Creatinine Clr Calc Pharmacy 41.7 ml/min; Est GFR (African American) 37.5 ml/min; Est GFR (Non-African American) 32.4 ml/min
[2024-01-29] MEDS: lisinopril 5 MG TAB PO SCH (07:57)
[2024-01-29] MEDS: METOPROLOL SUCC 25MG EXT REL TAB PO SCH (07:57)
[2024-01-29 08:21] LABS: Estimated Average Glucose 160 mg/dl; Hemoglobin A1C 7.2 % (4.5-5.6)
[2024-01-29] MEDS ORDERED: ATORVASTATIN 40 MG TAB PO SCH (09:00)
[2024-01-29] MEDS ORDERED: PHARMACY GLYCEMIC MGMT CONSULT PRN (09:01)
[2024-01-29] MEDS: SODIUM CHLORIDE 0.9% 1,000 ML IV SCH (09:37)
[2024-01-29] MEDS ORDERED: ALBUTEROL HFA 8 GM INHALER INH PRN (10:09)
--- NOTE | 2024-01-29 10:56 | Nephrology Consultation ---
Date of Consultation January 29, 2024 Assessment & Plan (1) NATHAN (acute kidney injury): NATHAN with baseline creat 1.2 in a fci Diabetic with PVD--so hg baseline risk factors. Current creat 2.0 is slightly higher than baseline but creat is not rising fast. less likely to be ATN or GN. NATHAN is likely hemodynamic mediated with NSAID use/LOBO/Diabetic with Acute Infection Hold LOBO/ARB, Diuretics/NSAIDS. IVF with NS for one more day. Do check renal US also I and O. Avoid nephrotoxic agents (2) Left leg cellulitis: Current issue. on Abx. No surgery as per review of orthopedics note (3) Hyponatremia: Seem like it is chronic mild type. na 128 yesterday and did go up with NS to 131. Continue NS for now. History of Present Illness Reason for Consultation: NATHAN Attending Physician: Brant Farias MD History of Present Illness 68/M with long standing diabetes mellitus complicated by bilateral peripheral neuropathy, CAD status post CABG x 3, hyperlipidemia, right ankle abscess status post BKA in [facility] in May 2022 Last hospital admission in May 2022 for right leg wound; required transfer out to [facility] for BKA. Patient reports that he had a wound on his left leg just above the ankle about 2 weeks ago. He noticed increasing redness and swelling on his leg going up to his knees. for last 6-7 days increasing pain in his left knee. he was taking 4-6 tabs of ibuprofen per day. He reports of generalized fatigue and weakness. He denies fever or chills. Cannot ambulate now. Since admission getting ivf. Seen by orthopedics already--No surgery needed. Suggested IV abx and wound care. getting Daptomycin now but he did get one dose of vanco, Zosyn, Ceftraixone also. Baseline creat 1.2 and on admission was 1.9 last night and this am is 2. Making urine. ROS--Severe Pain in left knee with redness and swelling. Otherwise 12 systems reviewed and negative. Physical Exam Physical Exam: Constitutional: awake Alert oriented x 3; not in distress. normal speech Respiratory: Bilateral Clear breath sound. Cardiovascular: RRR, no murmur no JVD. No pitting edema noted Abdomen: soft, nontender, Musculoskeletal: Open wound on left leg just above ankle on lateral aspect; redness surrounding the area tracking up to the knee. No knee swelling or erythema. ROM painful. Right leg- BKA. Neurologic: PERRL, EOMI, accommodation nl, no face palsy, no dysarthria CN's II- XI intact bilaterally and moves all extremities Psychiatric: A+Ox3, euthymic affect Allergies Allergy/AdvReac Type Severity Reaction Status Date / Time No Known Allergies Allergy Verified 01/28/24 13:30 Home Medications Medication Instructions Recorded Confirmed Type atorvastatin 40 mg tablet 40 mg PO QAM #30 tabs 02/07/20 01/28/24 Rx insulin NPH isoph U-100 human 100 0 unit subcut QAM 08/07/21 01/28/24 History unit/mL subcutaneous suspension (Novolin N NPH U-100 Insulin isophane) lisinopril 5 mg tablet 5 mg PO DAILY 01/18/22 01/28/24 History metoprolol succinate 25 mg 25 mg PO DAILY 01/18/22 01/28/24 History tablet,extended release 24 hr Patient History Medical History Acute kidney injury Alcohol abuse with alcohol-induced disorder History of COVID-19 > 1 year ago; resolved. HTN (hypertension) Pt reports stopped taking Lisinopril and Metoprolol approx 4 weeks ago bc "blood pressure is good" - says PCP is aware. 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 Diabetic ulcer of left foot due to type 2 diabetes mellitus CAD (coronary artery disease) CABG x3 (2003) Neuropathy Surgical History History of tooth extraction History of coronary artery bypass graft CABG x3 (2003) History of vasectomy S/P PICC central line placement removed Family History Father Multiple myeloma Other Diabetes No family history of adverse response to anesthesia Social History Smoking Status: Never smoker Second Hand Exposure: Yes; Do You Dip or Chew Tobacco: No; Hx Alcohol Use: Yes Alcohol type: beer Alcohol Intake Frequency: 2-3 x/Week Alcohol Intake Frequency Comment: -5/16/22-Pt states he no longer consumes alcohol Hx Substance Use: No Preferred Language: Cook Islander Communication Ability: Effective Back Roll Lathe Operator Required: No Beliefs That Will Affect Care: None marital status: Current Living Situation: Spouse current occupational status: retired How many Children do You have: 2 How many Children do You have Comment: two daughters with one that lives close to pt. able to assist with care as needed. Other Information That Helps Us Care for You: No Feels Safe at Home: Yes Safety Concerns: Feels Safe At This Time Diet: diabetic and regular caffeine: Yes during the past year weight has: remained stable Gender Identity: Male Assistive Devices: Special Shoe Results & Data Vital Signs (Past 12 Hours) Vital Signs Temp Pulse Pulse Resp BP Pulse Ox O2 Del Method 01/29/24 08:10 75 01/29/24 07:46 36.5 C 80 16 151/75 H 98 Room Air 01/29/24 04:52 37.1 C 87 18 159/84 H 98 Room Air 01/29/24 00:11 79 01/28/24 23:37 37.2 C 88 18 134/78 94 Room Air Laboratory Results cbc, renal panel reviewed
[2024-01-29 11:26] LABS: Adenovirus PCR Not Detected (NotDetected); Bordetella parapertussis PCR Not Detected (NotDetected); Bordetella pertussis PCR Not Detected (NotDetected); Chlamydia pneumoniae PCR Not Detected (NotDetected); Coronavirus 229E PCR Not Detected (NotDetected); Coronavirus CoV-2 (COVID19)PCR Not Detected (NotDetected); Coronavirus HKU1 PCR Not Detected (NotDetected); Coronavirus NL63 PCR Not Detected (NotDetected); Coronavirus OC43PCR Not Detected (NotDetected); Human Metapneumovirus PCR Not Detected (NotDetected); Influenza A PCR Not Detected (NotDetected); Influenza B PCR Not Detected (NotDetected); Mycoplasma pneumoniae PCR Not Detected (NotDetected); Parainfluenza Virus 1 PCR Not Detected (NotDetected); Parainfluenza Virus 2 PCR Not Detected (NotDetected); Parainfluenza Virus 3 PCR Not Detected (NotDetected); Parainfluenza Virus 4 PCR Not Detected (NotDetected); Respiratory Syncytial VirusPCR Not Detected (NotDetected); Rhinovirus/Enterovirus PCR Not Detected (NotDetected)
--- NOTE | 2024-01-29 12:17 | Ultrasound Report ---
US arterial duplex left lower extremity CLINICAL HISTORY: Left lower extremity pain. COMPARISON STUDY: Lower extremity CTA 11/07/2021. Duplex ultrasound 02/03/2020. FINDINGS: The left ankle-brachial indices were unable to be calculated due to the noncompressible ves sels. Normal waveforms seen within the left great toe. Biphasic to triphasic waveforms and normal christopher ocities within the left common femoral and proximal to mid superficial femoral arteries. Scattered ca lcified plaque is seen throughout the left lower extremity arterial system. Borderline elevated peak systolic velocity within the distal left superficial femoral artery of 182 cm/s. Elevated peak systol ic velocity within the mid left popliteal artery of 374 cm/s consistent with an area of stenosis. The distal left anterior tibial artery appears occluded. No significant stenosis or occlusion within the left posterior tibial or peroneal arteries. The dorsalis pedis artery also appears patent. IMPRESSION: 1. Focal high-grade stenosis within the mid left popliteal artery. 2. Borderline stenosis within the distal left superficial femoral artery. 3. The distal left anterior tibial artery is occluded. ACT 112: Negative or not required by law. Electronically signed by: Scar Calvert M.D. 01/29/2024 12:16 PM
--- NOTE | 2024-01-29 12:30 | Communication Note ---
Date of Service: January 29, 2024 This is a vascular patient of Dr. Jose.
--- NOTE | 2024-01-29 13:29 | Pharmacy Report ---
Pharmacy Glycemic Short Note 2 - Date of Service January 29, 2024 - Glycemic Short BSG Results (Last 24 hours): 01/28/24 01/28/24 01/28/24 17:20 17:21 20:31 Glucose POC Glucose 331 H* 349 H* 222 H 01/29/24 01/29/24 01/29/24 05:43 08:07 12:16 Glucose 94 POC Glucose 96 218 H OUTPATIENT ANTIDIABETIC REGIMEN: * NPH -- pt states that he uses a sliding scale but is unsure of dose(s); question compliance * In the past, pt was using 15 units SQ BID, per outpt records * HbA1c: 7.2% (01/29/24) ASSESSMENT: 01/29/24 * Pt's BSGs have been labile since admission. Pt was very hyperglycemic pre-dinner (BSG 331 mg/dL, likely d/t uncovered lunch). BSGs dropped significantly overnight and were below goal this morning (BSG 94mg/dL). * Suspect that the drop in BSG from 331 --> 94 mg/dL overnight due in part to patient receiving excess Novolog with dinner coverage (21 units vs 12 units per insulin calculator). * Basal insulin held this morning until lunch-time BSG could be evaluated. As pre-lunch BSG was elevated, will resume Lantus this evening. * Pt is likely to continue with labile BSGs d/t renal function (SCr 2.06). Will need to make adjustments cautiously, as changes will not be reflected quickly and pt is at risk for insulin-stacking. 01/28/24 * Mr Jean is a 68yo diabetic M admitted with a leg infection/?abscess. * He is currently receiving daptomycin and Zosyn and is NPO w/ a pending surgical consult. * SQ basal/bolus insulin regimen initiated on admission, conservatively to start * Pharmacy will continue to follow and adjust regimen as indicated. PLAN FOR INPATIENT GLYCEMIC CONTROL: * Hold outpatient oral diabetes medications * Basal insulin * Lantus 10 units SQ qPM * Bolus insulin * NovoLog per scale ACHS or Q6hrs while NPO * Goal Range: Low 120 mg/dL - High 150 mg/dL * Correction Factor: 25 mg/dL/unit * Nutritional / Prandial insulin per carb ratio of 1 unit per 10 grams CHO consumed
[2024-01-29] MEDS: hydrALAZINE HCL 20 MG/ML VIAL IV ONE (15:53)
--- NOTE | 2024-01-29 16:06 | Hospitalist Progress Note ---
Date of Service January 29, 2024 Assessment & Plan (1) Leg wound, left: Plan: Per admitting service notes with addendum: Patient is a 68-year-old male with Past medical history of type 1 diabetes mellitus complicated by bilateral peripheral neuropathy, CAD status post CABG x 3, hyperlipidemia, right ankle abscess status post BKA in [facility] in May 2022 Presents with progressive left leg wound Left leg wound, cellulitis Left knee pain, septic arthritisRuled out Patient presents with left leg wound with progressive redness for 2 weeks. [id number] History of right-sided BKA for septic arthritis/osteomyelitis. X-ray kneeno acute finding No leukocytosis Started on Daptomycin and Zosyn. Obtain blood cx Obtain CT of the leg to rule out underlying abscess. Might need MRI depending on the results. Will obtain orthopedic consultation given left knee pain to rule out septic arthritis. wound care consult 01/27 CT lower extremity, left: Positive cellulitis but no abscess, fluid collection or osteomyelitis Blood cultures: Pending Doppler ultrasound, arterial, left lower extremity: Positive high-grade stenosis popliteal artery Orthopedic service consulted, does not feel patient has septic arthritis Continue daptomycin plus Zosyn Consult ID Consult vascular surgery (2) Acute kidney injury: (3) Hyponatremia: Plan: BMP on admission shows creatinine of 1.93 and sodium of 128 Last creatinine was 1.19 in May 2022 Will start on IV fluids BMP daily Avoid nephrotoxic agent. 01/28 Creatinine 2.0 Urinalysis: Positive for hyaline cast, protein Hold lisinopril Continue IV fluids Nephrology service consulted Chronic conditions; Type 2 diabetes mellitus status - on insulin NPH at home; started on Lantus and glargine. History of CAD status post CABG status on Lipitor, currently on hold as patient is on daptomycin. Not on aspirin. Hypertension-Hold lisinopril, changed to amlodipine As needed hydralazine IV Continue metoprolol Full code DVT prophylaxisSCDs; Start heparin subcu once blood pressure has been stabilized Disposition PT OT evaluation Otherwise lives at home Admission and Anticipated Discharge Date Admission Date: January 28, 2024 Subjective Follow-up for left lower leg wound and cellulitis, acute kidney injury, etc. Seen resting in bed, comfortable, not in distress, in good spirits Very pleasant gentleman States he is still having some on the left lower leg, mostly below the knee Denies fevers or chills No problems with voiding no other symptoms Review of Systems Review of Systems: all noted and negative except for above Physical Exam Physical Exam: General- oriented x 3, not in distress, speaks in sentences with no effort or accessory muscle use Eyes- anicteric Neck- no JVD Lungs- clear breath sounds bilaterally, no rales/wheezes Heart- normal rate, regular rhythm; no murmurs Abdomen- normal bowel sounds, nondistended, soft, nontender Extremities- Left lower leg: Mild erythema noted, drying wounds on the ankle region anterior Positive mild tenderness, and warmth Neuro- alert, oriented x 3; no gross focal neurologic deficits Skin- warm & dry Results & Data Results & Data Vital Signs (Past 12 Hours) Vital Signs Temp Pulse Pulse Resp BP BP Pulse Ox 01/29/24 16:00 37.1 C 89 18 181/93 H 190/96 H 98 01/29/24 14:11 84 01/29/24 12:27 36.6 C 76 168/84 H 95 01/29/24 08:10 75 01/29/24 07:46 36.5 C 80 16 151/75 H 98 01/29/24 04:52 37.1 C 87 18 159/84 H 98 O2 Del Method 01/29/24 16:00 Room Air 01/29/24 14:11 01/29/24 12:27 Room Air 01/29/24 08:10 01/29/24 07:46 Room Air 01/29/24 04:52 Room Air all noted and reviewed including below
[2024-01-29] MEDS: LANTUS PER UNIT CHARGE SQ SCH (17:48)
[2024-01-30] MEDS: amLODIPine BESYLATE 5 MG TAB PO ONE (03:57)
[2024-01-30 07:17] LABS: Basophils # (auto) 0.03 K/uL (0.00-0.20); Basophils % (auto) 0.6 %; Eosinophils # (auto) 0.23 K/uL (0.00-0.50); Eosinophils % (auto) 4.6 %; Hematocrit (blood only) 27.5 % (42.0-52.0); Hemoglobin 9.3 g/dl (14.0-18.0); Immature Granulocytes # (auto) 0.02 K/uL (0.01-0.20); Immature Granulocytes % (auto) 0.4 %; Lymphocytes # (auto) 0.51 K/uL (1.20-3.40); Lymphocytes % (auto) 10.1 %; Mean Corpuscular Hemoglobin 29.1 pg (25.0-34.0); Mean Corpuscular Hgb Conc 33.8 g/dL (32.0-36.0); Mean Corpuscular Volume 85.9 fL (80.0-100.0); Mean Platelet Volume 9.8 fL (9.4-12.4); Monocytes % (auto) 11.9 %; Neutrophils # (auto) 3.65 K/uL (1.40-6.50); Neutrophils % (auto) 72.4 %; Platelet Count 170 K/uL (130-400); RDW Coefficient of Variation 12.2 % (11.5-14.5); RDW Standard Deviation 38.8 fL (36.4-46.3); White Blood Count 5.04 K/ul (4.8-10.8)
[2024-01-30 07:42] LABS: BUN Creatinine Ratio 22.2 (10-20); Calcium 8.5 mg/dl (8.6-10.3); Creatinine Clr Calc Pharmacy 52.1 ml/min; Est GFR (African American) 48.3 ml/min; Est GFR (Non-African American) 41.7 ml/min; Potassium 4.5 mmol/L (3.5-5.1)
--- NOTE | 2024-01-30 07:42 | Vascular Medicine Consultation ---
Date of Consultation January 30, 2024 Assessment & Plan (1) Peripheral arterial disease: Left popliteal disease and MADHU occlusion. Normal toe pressure 2. Left lower extremity brumfield wound and cellulitis 3. Type 1 diabetes 4. CAD post CABG 5. 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 NATHAN Reviewed patient's recent arterial duplex and prior angiogram from 2 years ago. Patient appears to have had some progression in popliteal stenosis. However, no significant inflow/SFA disease and has good two-vessel distal runoff to the foot. Measured toe pressures are normal and adequate for wound healing. At recent baseline patient walks without claudication. On exam today lower extremity appears well-perfused with normal capillary fill. Do not feel PAD is contributing to patient's lower extremity pain or impacting wound healing. Can forego additional invasive vascular testing/intervention at this time. Recommend continued wound care and antibiotics per primary team and ASCVD risk factor modification. Will arrange outpatient follow-up with vascular medicine. If superficial brumfield wound nonhealing will consider additional venous studies. Thank you for allowing us to participate in the care of this patient. Please contact with any questions. History of Present Illness Attending Physician: Brant Farias MD History of Present Illness Mr. Jean is a is a very pleasant 68-year-old man seen today in hospital due to left lower extremity wound and known PAD. Past medical history significant for type 1 diabetes complicated by peripheral neuropathy, CAD post three-vessel CABG in 2003, hyperlipidemia. He has past right BKA 05/2022 in the setting of right ankle abscess. He ambulates with a prosthesis. Previously seen by vascular medicine 01/2022 at [facility] [place] in the setting of nonhealing ulcer. Angiogram 01/18/2022 showed widely patent right lower extremity arterial system and no intervention needed. On the left noted to have 40% mid popliteal, 40% TPT and sluggish flow MADHU proximally. Presented to [facility] ED 01/28/2024 in the setting of severe left knee pain. X- ray/CT scan/seen by orthopedics and no concerns for septic arthritis. Was noted to have left anterior lateral brumfield wound with surrounding cellulitis. Patient unclear what started wound, present for several weeks per patient improving. Started on broad-spectrum antibiotics. IV fluids for NATHAN. Arterial duplex 01/29/2024: Borderline stenosis distal left SFA (PSV 182), 50 to 74% stenosis mid left popliteal (PSV 374), patent peroneal, [employer]DEL [employer]. Distal MADHU occluded. Left SALLY noncompressible, toe pressure 137 Allergies Allergy/AdvReac Type Severity Reaction Status Date / Time No Known Allergies Allergy Verified 01/28/24 13:30 Home Medications Medication Instructions Recorded Confirmed Type atorvastatin 40 mg tablet 40 mg PO QAM #30 tabs 02/07/20 01/28/24 Rx insulin NPH isoph U-100 human 100 0 unit subcut QAM 08/07/21 01/28/24 History unit/mL subcutaneous suspension (Novolin N NPH U-100 Insulin isophane) lisinopril 5 mg tablet 5 mg PO DAILY 01/18/22 01/28/24 History metoprolol succinate 25 mg 25 mg PO DAILY 01/18/22 01/28/24 History tablet,extended release 24 hr Patient History Medical History Acute kidney injury Alcohol abuse with alcohol-induced disorder History of COVID-19 > 1 year ago; resolved. HTN (hypertension) Pt reports stopped taking Lisinopril and Metoprolol approx 4 weeks ago bc "blood pressure is good" - says PCP is aware. 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 Diabetic ulcer of left foot due to type 2 diabetes mellitus CAD (coronary artery disease) CABG x3 (2003) Neuropathy Surgical History History of tooth extraction History of coronary artery bypass graft CABG x3 (2003) History of vasectomy S/P PICC central line placement removed Family History Father Multiple myeloma Other Diabetes No family history of adverse response to anesthesia Social History Smoking Status: Never smoker Second Hand Exposure: Yes; Do You Dip or Chew Tobacco: No; Hx Alcohol Use: Yes Alcohol type: beer Alcohol Intake Frequency: 2-3 x/Week Alcohol Intake Frequency Comment: -11/19/21-Pt states he no longer consumes alcohol Hx Substance Use: No Preferred Language: German Communication Ability: Effective Sap Business Objects Consultant Required: No Beliefs That Will Affect Care: None marital status: Current Living Situation: Spouse current occupational status: retired How many Children do You have: 2 How many Children do You have Comment: two daughters with one that lives close to pt. able to assist with care as needed. Other Information That Helps Us Care for You: No Feels Safe at Home: Yes Safety Concerns: Feels Safe At This Time Diet: diabetic and regular caffeine: Yes during the past year weight has: remained stable Gender Identity: Male Assistive Devices: Prosthesis and Scooter/Electric Scooter Review of Systems Review of Systems: All systems reviewed & are unremarkable except as noted in HPI & below Physical Exam Physical Exam: General: Comfortable, no acute distress Eyes: Sclerae anicteric Lungs: Clear to auscultation Cardiac: Regular rate and rhythm Abdomen: Soft, nontender Neuro: Nonfocal Psych: Alert orient x3, normal affect and mood Extremities/Vascular: -- 2+ radial bilaterally -- 2+ femoral bilaterally -- 2+ left popliteal -- 2 + PT, diminished DP. Normal capillary refill. -- No edema -- Wound care images reviewed: Large superficial ulcer with mild surrounding erythema. Results & Data Vital Signs (Past 12 Hours) Vital Signs Temp Pulse Pulse Resp BP Pulse Ox O2 Del Method 01/30/24 07:19 Room Air 01/30/24 03:45 98.2 F 83 18 190/94 H 98 Room Air 01/29/24 23:50 80 01/29/24 23:10 98.8 F 84 16 132/73 97 Room Air 01/29/24 19:41 98.6 F 90 14 159/73 H 97 Room Air PG Care Time/CCT Total # of Minutes Spent Total Time Spent with Patient: Total time spent is greater than 50% in coordination of care (as documented) at patient's floor/unit and/or counseling patient: Coding Level of Care Code 75542 INT INP/OBS CARE 3/75MIN Diagnoses Peripheral arterial disease I73.9
--- NOTE | 2024-01-30 07:48 | Orthopedic Progress Note ---
Date of Service January 30, 2024 Assessment & Plan (1) Left leg cellulitis: Plan: 68-year-old gentleman with multiple medical comorbidities with left lower extremity cellulitis. I do not detect any abscesses. No fluid collections to drain. I do not think it is a blood supply is optimal and may take a while to respond to the antibiotics. There is no surgical indication at this point. Plan: At this point I recommend continued antibiotic management. Any orthopedic questions can be directly [phone] Admission and Anticipated Discharge Date Admission Date: January 28, 2024 Subjective 68-year-old gentleman admitted with left lower extremity cellulitis. His symptoms are essentially unchanged. Continues to have pain in his left upper leg. No new complaints. Physical Exam Physical Exam: Physical examination reveals diffuse redness that in his upper mid leg area. Very tender. Minimal if any knee effusion. Minimal pain with knee motion. He can dorsiflex and plantarflex his foot appropriately. I will detect any abscesses or fluid collections. Results & Data Vital Signs (Past 12 Hours) Vital Signs Temp Pulse Pulse Resp BP Pulse Ox O2 Del Method 01/30/24 07:19 Room Air 01/30/24 03:45 36.8 C 83 18 190/94 H 98 Room Air 01/29/24 23:50 80 01/29/24 23:10 37.1 C 84 16 132/73 97 Room Air
--- NOTE | 2024-01-30 08:52 | Pharmacy Report ---
Pharmacy Glycemic Short Note 2 - Date of Service January 30, 2024 - Glycemic Short BSG Results (Last 24 hours): 01/29/24 01/29/24 01/29/24 12:16 17:04 19:58 Glucose POC Glucose 218 H 218 H 176 H 01/30/24 01/30/24 06:41 07:59 Glucose 149 H POC Glucose 164 H OUTPATIENT ANTIDIABETIC REGIMEN: * NPH -- pt states that he uses a sliding scale but is unsure of dose(s); question compliance * In the past, pt was using 15 units SQ BID, per outpt records * HbA1c: 7.2% (01/29/24) ASSESSMENT: 01/30/24 * Sumeet received 31 units of SC insulin yesterday with majority of BSGs above goal * 10 units Lantus + 21 units bolus * BSGs: 94, 218, 218, 176 mg/dL * Fasting BSG is trending upward. Will increase basal insulin. Conservative increase secondary to NATHAN (although Scr improving) and reported T1DM. * Will tighten carb coverage due to post prandial BSG elevation. 01/29/24 * Pt's BSGs have been labile since admission. Pt was very hyperglycemic pre- dinner (BSG 331 mg/dL, likely d/t uncovered lunch). BSGs dropped significantly overnight and were below goal this morning (BSG 94mg/dL). * Suspect that the drop in BSG from 331 --> 94 mg/dL overnight due in part to patient receiving excess Novolog with dinner coverage (21 units vs 12 units per insulin calculator). * Basal insulin held this morning until lunch-time BSG could be evaluated. As pre-lunch BSG was elevated, will resume Lantus this evening. * Pt is likely to continue with labile BSGs d/t renal function (SCr 2.06). Will need to make adjustments cautiously, as changes will not be reflected quickly and pt is at risk for insulin-stacking. 01/28/24 * Mr Jean is a 68yo diabetic M admitted with a leg infection/?abscess. * He is currently receiving daptomycin and Zosyn and is NPO w/ a pending surgical consult. * SQ basal/bolus insulin regimen initiated on admission, conservatively to start * Pharmacy will continue to follow and adjust regimen as indicated. PLAN FOR INPATIENT GLYCEMIC CONTROL: * Hold outpatient oral diabetes medications * Basal insulin * Lantus 12 units SQ daily with dinner * Bolus insulin * NovoLog per scale ACHS or Q6hrs while NPO * Goal Range: Low 120 mg/dL - High 150 mg/dL * Correction Factor: 20 mg/dL/unit * Nutritional / Prandial insulin per carb ratio of 1 unit per 7 grams CHO consumed
[2024-01-30] MEDS ORDERED: amLODIPine BESYLATE 5 MG TAB PO SCH (09:00)
[2024-01-30] MEDS: ADVANCED PROBIOTIC 625 MG CAPSULE PO SCH (09:28)
--- NOTE | 2024-01-30 09:42 | Nephrology Progress Note ---
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 Current creat 1.67 is only slightly higher than baseline and trending towards baseline. Much less likely to be ATN or GN. NATHAN is likely hemodynamic mediated with NSAID use/LOBO/Diabetic with Acute Infection Hold LOBO/ARB, Diuretics/NSAIDS. IVF with NS for one more day. Do check renal US also I and O. Avoid nephrotoxic agents BP is high and so is HR--but also has Pain. raise BB slightly. Accept a somewhat higher BP givencurrent situation (2) Left leg cellulitis: Current issue. on Abx. No surgery as per review of orthopedics note (3) Hyponatremia: Seem like it is chronic mild type. na 128 yesterday and did go up with NS to 131 and now 133. Continue NS for one more day. S--Ongoing pain. No surgery needed. Was seen by orthoedics as well as vascular/and INterv cards. BP starting to get high. ROS--Severe Pain in left knee with redness and swelling. Otherwise 12 systems reviewed and negative. Physical Exam Physical Exam: Constitutional: awake Alert oriented x 3; not in distress. normal speech Respiratory: Bilateral Clear breath sound. Cardiovascular: RRR, no murmur no JVD. No pitting edema noted Abdomen: soft, nontender, Musculoskeletal: Open wound on left leg just above ankle on lateral aspect; redness surrounding the area tracking up to the knee. No knee swelling or erythema. ROM painful. Right leg- BKA. Neurologic: PERRL, EOMI, accommodation nl, no face palsy, no dysarthria CN's II- XI intact bilaterally and moves all extremities Psychiatric: A+Ox3, euthymic affect Results & Data Vital Signs (Past 12 Hours) Vital Signs Temp Pulse Pulse Resp BP Pulse Ox O2 Del Method 01/30/24 08:27 111 H 01/30/24 08:11 36.9 C 83 18 157/76 H 99 Room Air 01/30/24 07:19 Room Air 01/30/24 03:45 36.8 C 83 18 190/94 H 98 Room Air 01/29/24 23:50 80 01/29/24 23:10 37.1 C 84 16 132/73 97 Room Air
--- NOTE | 2024-01-30 13:14 | Infectious Disease Consult ---
Date of Service January 30, 2024 Telehealth Information I performed this visit using a real-time telehealth connection between my location and the patients location ([facility]). After connecting through interactive tele-video, patient was identified by name and date of and/or wristband check.Patient (or authorized healthcare route service representative) was informed that this was a telemedicine visit and it was being conducted confidentially over secure lines. My office door was closed and no one else was present in the room with me.Patient (or authorized healthcare route service representative) provided consent to proceed with the visit, expressed an understanding of privacy and security of the telemedicine visit, and gave permission to have a hospital route service representative in the room in order to assist with the visit and to conduct portions of the visit, as needed. I informed the patient (or authorized healthcare route service representative) that I reviewed their record and presented the opportunity for them to ask any questions regarding the visit today. The patient agreed to participate. Assessment & Plan (1) Cellulitis: (2) Leg wound, left: Plan Assessment: Pt is a 68 yo M with PMHx of type 1 diabetes mellitus complicated by bilateral peripheral neuropathy, CAD status post CABG x 3, hyperlipidemia, right ankle abscess status post BKA in [facility] in May 2022 who presented to [facility] on 01/28/2024 with increased swelling and pain from left leg wound on ankle moving to knee. At [facility] in the ED, pt was afebrile, normotensive and saturating well on room air. No leukocytosis present, CMP revealed serum sodium of 128, BUN/creatinine of 42/1.93. Knee x-ray was done which did not show any acute finding. Plan: - Recommend Stopping Zosyn IV and continuing Daptomycin IV alone, if patient continues to do well on Daptomycin IV over the next few days from switching to Linezolid 600 mg PO BID for 2 weeks of total antibiotics. - we will not actively monitor patient, for additional recommendation please contact ID physician via tiger text or call. Thank you your consult. History of Present Illness History of Present Illness Reason for consult: left lower leg wound with cellulitis Pt is a 68 yo M with PMHx of type 1 diabetes mellitus complicated by bilateral peripheral neuropathy, CAD status post CABG x 3, hyperlipidemia, right ankle abscess status post BKA in [facility] in May 2022 who presented to [facility] on 01/28/2024 with increased swelling and pain from left leg wound on ankle moving to knee. Per notes and chart review, pt reported that he sustained a wound on his left leg just above the ankle 2 weeks ago. Pt noticed increasing redness and swelling on his leg going up to his knees. Pt noticed that his knee was getting painful as well which led to difficulty in ambulation. At [facility] in the ED, pt was afebrile, normotensive and saturating well on room air. No leukocytosis present, CMP revealed serum sodium of 128, BUN/creatinine of 42/1.93. Knee x-ray was done which did not show any acute finding. ID consulted for evaluation and management. Allergies Allergy/AdvReac Type Severity Reaction Status Date / Time No Known Allergies Allergy Verified 01/28/24 13:30 Home Medications Medication Instructions Recorded Confirmed Type atorvastatin 40 mg tablet 40 mg PO QAM #30 tabs 02/07/20 01/28/24 Rx insulin NPH isoph U-100 human 100 0 unit subcut QAM 08/07/21 01/28/24 History unit/mL subcutaneous suspension (Novolin N NPH U-100 Insulin isophane) lisinopril 5 mg tablet 5 mg PO DAILY 01/18/22 01/28/24 History metoprolol succinate 25 mg 25 mg PO DAILY 01/18/22 01/28/24 History tablet,extended release 24 hr Patient History Medical History Acute kidney injury Alcohol abuse with alcohol-induced disorder History of COVID-19 > 1 year ago; resolved. HTN (hypertension) Pt reports stopped taking Lisinopril and Metoprolol approx 4 weeks ago bc "blood pressure is good" - says PCP is aware. 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 Diabetic ulcer of left foot due to type 2 diabetes mellitus CAD (coronary artery disease) CABG x3 (2003) Neuropathy Surgical History History of tooth extraction History of coronary artery bypass graft CABG x3 (2003) History of vasectomy S/P PICC central line placement removed Family History Father Multiple myeloma Other Diabetes No family history of adverse response to anesthesia Social History Smoking Status: Never smoker Second Hand Exposure: Yes; Do You Dip or Chew Tobacco: No; Hx Alcohol Use: Yes Alcohol type: beer Alcohol Intake Frequency: 2-3 x/Week Alcohol Intake Frequency Comment: -11/19/21-Pt states he no longer consumes alcohol Hx Substance Use: No Preferred Language: Tamazight Communication Ability: Effective Fpga Design Engineer Required: No Beliefs That Will Affect Care: None marital status: Current Living Situation: Spouse current occupational status: retired How many Children do You have: 2 How many Children do You have Comment: two daughters with one that lives close to pt. able to assist with care as needed. Other Information That Helps Us Care for You: No Feels Safe at Home: Yes Safety Concerns: Feels Safe At This Time Diet: diabetic and regular caffeine: Yes during the past year weight has: remained stable Gender Identity: Male Assistive Devices: Prosthesis and Scooter/Electric Scooter Review of Systems all negative and reviewed all ROS Results & Data Vital Signs (Past 12 Hours) Vital Signs Temp Pulse Pulse Resp BP Pulse Ox O2 Del Method 01/30/24 11:32 37.2 C 73 18 152/91 H 98 Room Air 01/30/24 08:27 111 H 01/30/24 08:11 36.9 C 83 18 157/76 H 99 Room Air 01/30/24 07:19 Room Air 01/30/24 03:45 36.8 C 83 18 190/94 H 98 Room Air Laboratory Results Abnormal Lab Results 01/29/24 01/29/24 01/30/24 17:04 19:58 06:41 WBC 5.04 RBC 3.20 L Hgb 9.3 L Hct 27.5 L MCV 85.9 MCH 29.1 MCHC 33.8 RDW Std Deviation 38.8 RDW Coeff of Mau 12.2 Plt Count 170 MPV 9.8 Immature Gran % (Auto) 0.4 Neut % (Auto) 72.4 Lymph % (Auto) 10.1 [place] % (Auto) 11.9 Eos % (Auto) 4.6 Baso % (Auto) 0.6 Neut # (Auto) 3.65 Lymph # (Auto) 0.51 L [place] # (Auto) 0.60 H Eos # (Auto) 0.23 Baso # (Auto) 0.03 Immature Gran # (Auto) 0.02 Sodium 133 L Potassium 4.5 Chloride 103 Carbon Dioxide 24 Anion Gap 6 BUN 37 H Creatinine 1.67 H D Est Cr Clr Drug Dosing 52.1 Est GFR ( Amer) 48.3 Est GFR (Non-Af Amer) 41.7 BUN/Creatinine Ratio 22.2 H Glucose 149 H POC Glucose 218 H 176 H Calcium 8.5 L 01/30/24 01/30/24 07:59 11:50 WBC RBC Hgb Hct MCV MCH MCHC RDW Std Deviation RDW Coeff of Mau Plt Count MPV Immature Gran % (Auto) Neut % (Auto) Lymph % (Auto) [place] % (Auto) Eos % (Auto) Baso % (Auto) Neut # (Auto) Lymph # (Auto) [place] # (Auto) Eos # (Auto) Baso # (Auto) Immature Gran # (Auto) Sodium Potassium Chloride Carbon Dioxide Anion Gap BUN Creatinine Est Cr Clr Drug Dosing Est GFR ( Amer) Est GFR (Non-Af Amer) BUN/Creatinine Ratio Glucose POC Glucose 164 H 245 H Calcium 01/28/24 14:28 Aerobic Blood Culture - Preliminary Blood No growth in Aerobic bottle after 24 hours. Anaerobic Blood Culture - Preliminary No growth in Anaerobic bottle after 24 hours. 01/28/24 14:14 Aerobic Blood Culture - Preliminary Blood No growth in Aerobic bottle after 24 hours. Anaerobic Blood Culture - Preliminary No growth in Anaerobic bottle after 24 hours. 01/30/24 01/30/24 01/30/24 11:50 07:59 06:41 WBC 5.04 RBC 3.20 L Hgb 9.3 L Hct 27.5 L MCV 85.9 MCH 29.1 MCHC 33.8 RDW Std Deviation 38.8 RDW Coeff of Mau 12.2 Plt Count 170 MPV 9.8 Immature Gran % (Auto) 0.4 Neut % (Auto) 72.4 Lymph % (Auto) 10.1 [place] % (Auto) 11.9 Eos % (Auto) 4.6 Baso % (Auto) 0.6 Neut # (Auto) 3.65 Lymph # (Auto) 0.51 L [place] # (Auto) 0.60 H Eos # (Auto) 0.23 Baso # (Auto) 0.03 Immature Gran # (Auto) 0.02 Sodium 133 L Potassium 4.5 Chloride 103 Carbon Dioxide 24 Anion Gap 6 BUN 37 H Creatinine 1.67 H D Est Cr Clr Drug Dosing 52.1 Est GFR ( Amer) 48.3 Est GFR (Non-Af Amer) 41.7 BUN/Creatinine Ratio 22.2 H Glucose 149 H POC Glucose 245 H 164 H Calcium 8.5 L 01/29/24 01/29/24 19:58 17:04 WBC RBC Hgb Hct MCV MCH MCHC RDW Std Deviation RDW Coeff of Mau Plt Count MPV Immature Gran % (Auto) Neut % (Auto) Lymph % (Auto) [place] % (Auto) Eos % (Auto) Baso % (Auto) Neut # (Auto) Lymph # (Auto) [place] # (Auto) Eos # (Auto) Baso # (Auto) Immature Gran # (Auto) Sodium Potassium Chloride Carbon Dioxide Anion Gap BUN Creatinine Est Cr Clr Drug Dosing Est GFR ( Amer) Est GFR (Non-Af Amer) BUN/Creatinine Ratio Glucose POC Glucose 176 H 218 H Calcium Diagnostic Findings CT [facility] on 01/28/2024 IMPRESSION: 1. Skin thickening and subcutaneous edema throughout the left lower leg. This may represent a cellulitis. 2. No loculated fluid collections on this noncontrast study to suggest an abscess. 3. No evidence for osteomyelitis. Medications Administered Home Medications Medication Instructions Recorded Confirmed Last Taken atorvastatin 40 mg tablet 40 mg PO QAM #30 tabs 02/07/20 01/28/24 01/28/24 insulin NPH isoph U-100 human 100 0 unit subcut QA 08/07/21 01/28/24 01/28/24 unit/mL subcutaneous suspension (Novolin N NPH U-100 Insulin isophane) lisinopril 5 mg tablet 5 mg PO DAILY 01/18/22 01/28/24 01/28/24 metoprolol succinate 25 mg 25 mg PO DAILY 01/18/22 01/28/24 01/28/24 tablet,extended release 24 hr Active Medications Generic Name Dose Route Start Last Admin Trade Name Freq PRN Reason Stop Dose Admin Acetaminophen 650 mg 01/28/24 13:55 01/29/24 17:16 Acetaminophen 325 Mg Tab PO 02/27/24 13:54 650 mg Q4H PRN Administration Pain or Fever Heparin Sodium (Porcine) 5,000 units 01/28/24 22:00 01/30/24 03:56 Heparin Sod 5,000 Unit/0.5 Ml Vial SQ 02/27/24 21:59 5,000 units Q8 AKUA Administration Piperacillin Sod/Tazobactam 100 mls @ 25 mls/hr 01/28/24 20:00 01/30/24 11:42 Sod 4.5 gm/ Dextrose IV 02/04/24 19:59 25 mls/hr Q8H AKUA Administration Protocol Daptomycin 500 mg/ Syringe 10 mls @ 5 mls/min 01/28/24 15:30 01/29/24 14:31 IV 02/04/24 15:29 5 mls/min Q24H AKUA Administration Protocol Sodium Chloride 1,000 mls @ 75 mls/hr 01/29/24 09:00 01/30/24 13:08 Nss IV 02/28/24 08:59 75 mls/hr .[id number] AKUA Administration Insulin Aspart 0 units 01/28/24 21:00 01/30/24 12:40 Insulin Aspart Per Unit Charge SC 02/27/24 17:59 17 units ACHS AKUA Administration Lactobacillus Acidophilus 1,250 mg 01/30/24 09:00 01/30/24 09:28 Advanced Probiotic 625 Mg Capsule PO 02/29/24 08:59 1,250 mg DAILY AKUA Administration Oxycodone HCl 5 mg 01/28/24 15:29 01/30/24 09:34 Oxycodone Hcl Ir 5 Mg Tab (Immediate Release) PO 02/11/24 15:28 5 mg Q8H PRN Administration Pain (1) Cellulitis Site of cellulitis: unspecified site Qualified Code(s): L03.90 - Cellulitis, unspecified (2) Leg wound, left Encounter type: initial encounter Qualified Code(s): S81.802A - Unspecified open wound, left lower leg, initial encounter
--- NOTE | 2024-01-30 16:17 | Hospitalist Progress Note ---
Date of Service January 30, 2024 Assessment & Plan (1) Leg wound, left: (2) Left leg cellulitis: Plan: (1) Leg wound, left: Plan: Per admitting service notes with addendum: Patient is a 68-year-old male with Past medical history of type 1 diabetes mellitus complicated by bilateral peripheral neuropathy, CAD status post CABG x 3, hyperlipidemia, right ankle abscess status post BKA in [facility] in May 2022 Presents with progressive left leg wound Left leg wound, cellulitis Left knee pain, septic arthritisRuled out Patient presents with left leg wound with progressive redness for 2 weeks. [id number] History of right-sided BKA for septic arthritis/osteomyelitis. X-ray kneeno acute finding No leukocytosis Started on Daptomycin and Zosyn. Obtain blood cx Obtain CT of the leg to rule out underlying abscess. Might need MRI depending on the results. Will obtain orthopedic consultation given left knee pain to rule out septic arthritis. wound care consult 01/27 CT lower extremity, left: Positive cellulitis but no abscess, fluid collection or osteomyelitis Blood cultures: Pending Doppler ultrasound, arterial, left lower extremity: Positive high-grade stenosis popliteal artery Orthopedic service consulted, does not feel patient has septic arthritis Continue daptomycin plus Zosyn Consult ID Consult vascular surgery 01/29 Improving clinically Blood cultures negative so far Evaluated by vascular surgery, no further intervention at this point, patient has adequate perfusion for wound healing at this point ID recommendations noted, will DC Zosyn, continue with daptomycin, plan to transition to linezolid PO upon discharge (2) Acute kidney injury: (3) Hyponatremia: Plan: BMP on admission shows creatinine of 1.93 and sodium of 128 Last creatinine was 1.19 in May 2022 Will start on IV fluids BMP daily Avoid nephrotoxic agent. 01/28 Creatinine 2.0 Urinalysis: Positive for hyaline cast, protein Hold lisinopril Continue IV fluids Nephrology service consulted 01/29 Bradycardia improved to 1.6 Continue with IV NSS Chronic conditions; Type 2 diabetes mellitus status - on insulin NPH at home; started on Lantus and glargine. History of CAD status post CABG status on Lipitor, currently on hold as patient is on daptomycin. Not on aspirin. Hypertension-Hold lisinopril, changed to amlodipine, increase to 10mg daily As needed hydralazine IV Continue metoprolol Full code DVT prophylaxisSCDs; Start heparin subcu once blood pressure has been stabilized Disposition PT OT evaluation Otherwise lives at home Admission and Anticipated Discharge Date Admission Date: January 28, 2024 Subjective Follow-up for left lower leg cellulitis, etc. Seen resting in bed, cooperative, good spirits States he feels improved today Left lower leg pain improving No fevers or chills No other new symptoms Review of Systems Review of Systems: all noted and negative except for above Physical Exam Physical Exam: General- oriented x 3, not in distress, speaks in sentences with no effort or accessory muscle use Eyes- anicteric Neck- no JVD Lungs- clear breath sounds bilaterally, no rales/wheezes Heart- normal rate, regular rhythm; no murmurs Abdomen- normal bowel sounds, nondistended, soft, no tenderness Extremities- Left lower leg: less erythema/edema/tenderness wound: healing well Neuro- alert, oriented x 3; no gross focal neurologic deficits Skin- warm & dry Results & Data Results & Data Vital Signs (Past 12 Hours) Vital Signs Temp Pulse Pulse Resp BP BP Pulse Ox 01/30/24 15:55 36.7 C 84 18 184/87 H 98 01/30/24 14:32 84 01/30/24 11:32 37.2 C 73 18 152/91 H 98 01/30/24 08:27 111 H 01/30/24 08:11 36.9 C 83 18 157/76 H 99 01/30/24 07:19 O2 Del Method 01/30/24 15:55 Room Air 01/30/24 14:32 01/30/24 11:32 Room Air 01/30/24 08:27 01/30/24 08:11 Room Air 01/30/24 07:19 Room Air all noted and reviewed including below (1) Leg wound, left Encounter type: initial encounter Qualified Code(s): S81.802A - Unspecified open wound, left lower leg, initial encounter
[2024-01-30] MEDS: METOPROLOL SUCC 25MG EXT REL TAB PO STA (16:32)
[2024-01-30] MEDS: LANTUS PER UNIT CHARGE SQ SCH (17:36)
[2024-01-31] MEDS: METOPROLOL SUCC 25MG EXT REL TAB PO SCH (03:47)
[2024-01-31] MEDS: amLODIPine BESYLATE 5 MG TAB PO SCH (07:59)
[2024-01-31] MEDS ORDERED: METOPROLOL SUCC 50MG EXT REL TAB PO SCH (09:00)
[2024-01-31 09:20] LABS: Basophils # (auto) 0.02 K/uL (0.00-0.20); Basophils % (auto) 0.4 %; Eosinophils # (auto) 0.27 K/uL (0.00-0.50); Eosinophils % (auto) 5.3 %; Hematocrit (blood only) 31.5 % (42.0-52.0); Hemoglobin 10.5 g/dl (14.0-18.0); Immature Granulocytes # (auto) 0.03 K/uL (0.01-0.20); Immature Granulocytes % (auto) 0.6 %; Lymphocytes # (auto) 0.69 K/uL (1.20-3.40); Lymphocytes % (auto) 13.5 %; Mean Corpuscular Hemoglobin 29.2 pg (25.0-34.0); Mean Corpuscular Hgb Conc 33.3 g/dL (32.0-36.0); Mean Corpuscular Volume 87.7 fL (80.0-100.0); Mean Platelet Volume 9.3 fL (9.4-12.4); Monocytes # (auto) 0.53 K/uL (0.11-0.59); Monocytes % (auto) 10.3 %; Neutrophils # (auto) 3.59 K/uL (1.40-6.50); Neutrophils % (auto) 69.9 %; Platelet Count 184 K/uL (130-400); RDW Coefficient of Variation 12.2 % (11.5-14.5); RDW Standard Deviation 39.5 fL (36.4-46.3); Red Blood Count 3.59 M/uL (4.70-6.10); White Blood Count 5.13 K/ul (4.8-10.8)
[2024-01-31 09:36] LABS: BUN Creatinine Ratio 19.1 (10-20); Calcium 9.1 mg/dl (8.6-10.3); Creatinine Clr Calc Pharmacy 55.4 ml/min; Est GFR (African American) 52.1 ml/min; Est GFR (Non-African American) 44.9 ml/min; Potassium 4.9 mmol/L (3.5-5.1)
[2024-01-31] MEDS: INSULIN HUMAN NPH SC SCH ×2 (09:36→17:51)
[2024-01-31] MEDS: hydrALAZINE HCL 25 MG TAB PO SCH (09:53)
--- NOTE | 2024-01-31 10:45 | Nephrology Progress Note ---
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 Creatinine down to 1.5 today NATHAN is likely hemodynamic mediated with NSAID use/LOBO/Diabetic with Acute Infection Hold LOBO/ARB, Diuretics/NSAIDS. Blood pressure is high today. Will add hydralazine 25 mg twice daily. Continue amlodipine and metoprolol I and O. Avoid nephrotoxic agents (2) Left leg cellulitis: Plan: Current issue. on Abx. No surgery as per review of orthopedics note (3) Hyponatremia: Plan: Seem like it is chronic mild type. na 134 today Fluid limit to 1.5 L daily Admission and Anticipated Discharge Date Admission Date: January 28, 2024 Subjective Seen for NATHAN and hypotension. He feels better today. No shortness of breath or leg swelling. Review of Systems 2 Review of Systems: All other systems were reviewed and negative except as noted in HPI Physical Exam 2 Physical Exam: General exam: Appears comfortable, no acute distress HEENT: Pupils are equal and reactive to light Neck: No JVD, neck is supple trachea is midline Respiratory system: Clear breath sounds bilaterally. Gastrointestinal: Abdomen is soft, non distended, non tender, bowel sounds are present CVS: Regular rate and rhythm. No murmurs, rubs or gallops Musculoskeletal: No joint or muscle tenderness. Extremities: Non tender, no edema, right BKA, left leg cellulitis Neuro: Oriented, no tremors, no focal neurological deficits Skin: No rashes Results & Data Vital Signs (Past 12 Hours) Vital Signs Temp Pulse Pulse Resp BP BP Pulse Ox 01/31/24 08:30 36.7 C 75 18 199/79 H 99 01/31/24 08:18 71 01/31/24 07:17 01/31/24 05:30 169/70 H 01/31/24 02:54 36.8 C 84 18 197/97 H 98 01/31/24 00:00 74 O2 Del Method 01/31/24 08:30 Room Air 01/31/24 08:18 01/31/24 07:17 Room Air 01/31/24 05:30 01/31/24 02:54 Room Air 01/31/24 00:00 Laboratory Results 01/31/24 08:52 01/31/24 08:52 WBC 5.13 RBC 3.59 L MCV 87.7 MCH 29.2 MCHC 33.3 RDW Std Deviation 39.5 RDW Coeff of Mau 12.2 Plt Count 184 MPV 9.3 L Diagnostic Findings 01/31/24 08:52 01/31/24 08:52 WBC 5.13 RBC 3.59 L MCV 87.7 MCH 29.2 MCHC 33.3 RDW Std Deviation 39.5 RDW Coeff of Mau 12.2 Plt Count 184 MPV 9.3 L
[2024-01-31] MEDS: LORazepam 0.5 MG TAB PO PRN (13:20)
--- NOTE | 2024-01-31 16:24 | Hospitalist Progress Note ---
Date of Service January 31, 2024 Assessment & Plan (1) Leg wound, left: (2) Left leg cellulitis: Plan: (1) Leg wound, left: Plan: Per admitting service notes with addendum: Patient is a 68-year-old male with Past medical history of type 1 diabetes mellitus complicated by bilateral peripheral neuropathy, CAD status post CABG x 3, hyperlipidemia, right ankle abscess status post BKA in [facility] in May 2022 Presents with progressive left leg wound Left leg wound, cellulitis Left knee pain, septic arthritisRuled out Patient presents with left leg wound with progressive redness for 2 weeks. [id number] History of right-sided BKA for septic arthritis/osteomyelitis. X-ray kneeno acute finding No leukocytosis Started on Daptomycin and Zosyn. Obtain blood cx Obtain CT of the leg to rule out underlying abscess. Might need MRI depending on the results. Will obtain orthopedic consultation given left knee pain to rule out septic arthritis. wound care consult 01/27 CT lower extremity, left: Positive cellulitis but no abscess, fluid collection or osteomyelitis Blood cultures: Pending Doppler ultrasound, arterial, left lower extremity: Positive high-grade stenosis popliteal artery Orthopedic service consulted, does not feel patient has septic arthritis Continue daptomycin plus Zosyn Consult ID Consult vascular surgery 01/29 Improving clinically Blood cultures negative so far Evaluated by vascular surgery, no further intervention at this point, patient has adequate perfusion for wound healing at this point ID recommendations noted, will DC Zosyn, continue with daptomycin, plan to transition to linezolid PO upon discharge 01/30 continues to improve (2) Acute kidney injury: (3) Hyponatremia: Plan: BMP on admission shows creatinine of 1.93 and sodium of 128 Last creatinine was 1.19 in May 2022 Will start on IV fluids BMP daily Avoid nephrotoxic agent. 01/28 Creatinine 2.0 Urinalysis: Positive for hyaline cast, protein Hold lisinopril Continue IV fluids Nephrology service consulted 01/29 crea improved to 1.6 Continue with IV NSS 01/30 crea still at 1.6 d/c IV fluids HTN Hydralazine added Metoprolol increased Amlodipine also started this admission monitor closely Chronic conditions; Type 2 diabetes mellitus status - on insulin NPH at home; started on Lantus and glargine. History of CAD status post CABG status on Lipitor, currently on hold as patient is on daptomycin. Not on aspirin. Hypertension As needed hydralazine IV Continue metoprolol Full code DVT prophylaxisSCDs; Start heparin subcu once blood pressure has been stabilized Disposition PT OT evaluation Otherwise lives at home Admission and Anticipated Discharge Date Admission Date: January 28, 2024 Subjective ff up for left leg cellulitis, wound infection, etc seen resting in bed, comfortable states left leg pain continues to improve no chest pain, dyspnea, palpitations, dizziness no other symptoms Review of Systems Review of Systems: all noted and negative except for above Physical Exam Physical Exam: General- oriented x 3, not in distress, speaks in sentences with no effort or accessory muscle use Eyes- anicteric Neck- no JVD Lungs- clear breath sounds bilaterally, no rales/wheezes Heart- normal rate, regular rhythm; no murmurs Abdomen- normal bowel sounds, nondistended, soft, nontender Extremities- L lower leg: less erythema no warmth no tenderness Neuro- alert, oriented x 3; no gross focal neurologic deficits Skin- warm & dry Results & Data Results & Data Vital Signs (Past 12 Hours) Vital Signs Temp Pulse Pulse Resp BP Pulse Ox O2 Del Method 01/31/24 16:01 36.7 C 83 18 178/81 H 99 Room Air 01/31/24 15:48 85 01/31/24 11:53 36.7 C 81 18 171/83 H 98 Room Air 01/31/24 08:30 36.7 C 75 18 199/79 H 99 Room Air 01/31/24 08:18 71 01/31/24 07:17 Room Air 01/31/24 05:30 169/70 H all noted and reviewed including below (1) Leg wound, left Encounter type: initial encounter Qualified Code(s): S81.802A - Unspecified open wound, left lower leg, initial encounter
[2024-01-31] MEDS ORDERED: hydrALAZINE HCL 20 MG/ML VIAL IV PRN (16:25)
[2024-02-01 08:30] LABS: BUN Creatinine Ratio 19.4 (10-20); Calcium 9.6 mg/dl (8.6-10.3); Creatinine Clr Calc Pharmacy 60.1 ml/min; Est GFR (African American) 57.8 ml/min; Est GFR (Non-African American) 49.9 ml/min
[2024-02-01] MEDS: carvediloL 12.5 MG TAB PO SCH (08:39)
--- NOTE | 2024-02-01 11:55 | Nephrology Progress Note ---
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 Creatinine down to 1.44 today NATHAN is likely hemodynamic mediated with NSAID use/LOBO/Diabetic with Acute Infection Hold LOBO/ARB, Diuretics/NSAIDS. Blood pressure is high today. Will increase hydralazine 25 mgthree times daily. Continue amlodipine and coreg I and O. Avoid nephrotoxic agents (2) Left leg cellulitis: Plan: Current issue. on Abx. No surgery as per review of orthopedics note (3) Hyponatremia: Plan: Seem like it is chronic mild type. na 135 today Fluid limit to 1.5 L daily Admission and Anticipated Discharge Date Admission Date: January 28, 2024 Subjective He feels well and denies any shortness of breath and reports improvement in left leg swelling. Review of Systems 2 Review of Systems: All other systems were reviewed and negative except as noted in HPI Physical Exam 2 Physical Exam: General exam: Appears comfortable, no acute distress HEENT: Pupils are equal and reactive to light Neck: No JVD, neck is supple trachea is midline Respiratory system: Clear breath sounds bilaterally. Gastrointestinal: Abdomen is soft, non distended, non tender, bowel sounds are present CVS: Regular rate and rhythm. No murmurs, rubs or gallops Musculoskeletal: No joint or muscle tenderness. Extremities: Non tender, no edema, right BKA, left leg cellulitis Neuro: Oriented, no tremors, no focal neurological deficits Skin: No rashes Results & Data Vital Signs (Past 12 Hours) Vital Signs Temp Pulse Pulse Resp BP Pulse Ox O2 Del Method 02/01/24 11:32 36.7 C 55 L 18 127/76 98 Room Air 02/01/24 08:18 36.4 C L 82 18 195/90 H 98 Room Air 02/01/24 08:18 69 02/01/24 07:21 Room Air 02/01/24 02:33 36.8 C 78 18 182/80 H 98 Room Air Laboratory Results 02/01/24 07:58
[2024-02-01] MEDS: hydrALAZINE HCL 25 MG TAB PO SCH (13:17)
--- NOTE | 2024-02-01 15:28 | Pharmacy Report ---
Pharmacy Glycemic Short Note 2 - Date of Service February 01, 2024 - Glycemic Short BSG Results (Last 24 hours): 01/31/24 01/31/24 02/01/24 16:57 20:31 07:55 Glucose POC Glucose 211 H 196 H 147 H 02/01/24 02/01/24 07:58 11:58 Glucose 145 H POC Glucose 222 H OUTPATIENT ANTIDIABETIC REGIMEN: * NPH -- pt states that he uses a sliding scale but is unsure of dose(s); question compliance * In the past, pt was using 15 units SQ BID, per outpt records * HbA1c: 7.2% (01/29/24) ASSESSMENT: 02/01/24 * Sumeet received 57 units of insulin yesterday (14 were basal) * Fasting BSG within goal range, Lantus converted to NPH based on CDE recommendation, basal insulin increased 25% yesterday, continue * Carbohydrate ratio tightened slightly yesterday, hesitant to be too aggressive given additional prandial coverage with basal insulin switch to NPH. Will continue to trend. * NATHAN improving, continues on daptomycin 01/30/24 * Sumeet received 31 units of SC insulin yesterday with majority of BSGs above g oal * 10 units Lantus + 21 units bolus * BSGs: 94, 218, 218, 176 mg/dL * Fasting BSG is trending upward. Will increase basal insulin. Conservative increase secondary to NATHAN (although Scr improving) and reported T1DM. * Will tighten carb coverage due to post prandial BSG elevation. 01/29/24 * Pt's BSGs have been labile since admission. Pt was very hyperglycemic pre- dinner (BSG 331 mg/dL, likely d/t uncovered lunch). BSGs dropped significantly overnight and were below goal this morning (BSG 94mg/dL). * Suspect that the drop in BSG from 331 --> 94 mg/dL overnight due in part to patient receiving excess Novolog with dinner coverage (21 units vs 12 units per insulin calculator). * Basal insulin held this morning until lunch-time BSG could be evaluated. As pre-lunch BSG was elevated, will resume Lantus this evening. * Pt is likely to continue with labile BSGs d/t renal function (SCr 2.06). Will need to make adjustments cautiously, as changes will not be reflected quickly and pt is at risk for insulin-stacking. 01/28/24 * Mr Miranda is a 68yo diabetic M admitted with a leg infection/?abscess. * He is currently receiving daptomycin and Zosyn and is NPO w/ a pending s urgical consult. * SQ basal/bolus insulin regimen initiated on admission, conservatively to start * Pharmacy will continue to follow and adjust regimen as indicated. PLAN FOR INPATIENT GLYCEMIC CONTROL: * Hold outpatient oral diabetes medications * Basal insulin * Insulin NPH 8 units SQ BIDM * Bolus insulin * NovoLog per scale ACHS or Q6hrs while NPO * Goal Range: Low 120 mg/dL - High 150 mg/dL * Correction Factor: 20 mg/dL/unit * Nutritional / Prandial insulin per carb ratio of 1 unit per 6 grams CHO consumed
--- NOTE | 2024-02-01 16:18 | Discharge Summary ---
Discharge Summary Date of Service February 01, 2024 Principal Dx & Hospital Course #1 = Principal Diagnosis (1) Leg wound, left: (2) Left leg cellulitis: (1) Leg wound, left: Plan: Per admitting service notes with addendum: Patient is a 68-year-old male with Past medical history of type 1 diabetes mellitus complicated by bilateral peripheral neuropathy, CAD status post CABG x 3, hyperlipidemia, right ankle abscess status post BKA in [facility] in May 2022 Presents with progressive left leg wound Left leg wound, cellulitis Left knee pain, septic arthritisRuled out Patient presents with left leg wound with progressive redness for 2 weeks. [id number] History of right-sided BKA for septic arthritis/osteomyelitis. X-ray kneeno acute finding No leukocytosis Started on Daptomycin and Zosyn. Obtain blood cx Obtain CT of the leg to rule out underlying abscess. Might need MRI depending on the results. Will obtain orthopedic consultation given left knee pain to rule out septic a rthritis. wound care consult 01/27 CT lower extremity, left: Positive cellulitis but no abscess, fluid collection or osteomyelitis Blood cultures: Pending Doppler ultrasound, arterial, left lower extremity: Positive high-grade stenosis popliteal artery Orthopedic service consulted, does not feel patient has septic arthritis Continue daptomycin plus Zosyn Consult ID Consult vascular surgery 01/29 Improving clinically Blood cultures negative so far Evaluated by vascular surgery, no further intervention at this point, patient has adequate perfusion for wound healing at this point ID recommendations noted, will DC Zosyn, continue with daptomycin, plan to transition to linezolid PO upon discharge 01/30 continues to improve (2) Acute kidney injury: (3) Hyponatremia: Plan: BMP on admission shows creatinine of 1.93 and sodium of 128 Last creatinine was 1.19 in May 2022 Will start on IV fluids BMP daily Avoid nephrotoxic agent. 01/28 Creatinine 2.0 Urinalysis: Positive for hyaline cast, protein Hold lisinopril Continue IV fluids Nephrology service consulted 01/29 crea improved to 1.6 Continue with IV NSS 01/30 crea still at 1.6 d/c IV fluids HTN Hydralazine added Metoprolol increased Amlodipine also started this admission monitor closely Chronic conditions; Type 2 diabetes mellitus status - on insulin NPH at home; started on Lantus and glargine. History of CAD status post CABG status on Lipitor, currently on hold as patient is on daptomycin. Not on aspirin. Hypertension As needed hydralazine IV Continue metoprolol Full code DVT prophylaxisSCDs; Start heparin subcu once blood pressure has been stabilized Disposition PT OT evaluation Otherwise lives at home Admission HPI Per Admitting Provider History obtained from chart review and interview with patient, patient's Past medical history of type 1 diabetes mellitus complicated by bilateral peripheral neuropathy, CAD status post CABG x 3, hyperlipidemia, right ankle abscess status post BKA in [facility] in May 2022 Last confinement in May 2022 for right leg wound; required transfer out to [facility] for BKA. Patient reports that he sustained a wound on his left leg just above the ankle 2 weeks ago. He noticed increasing redness and swelling on his leg going up to his knees. He noticed that his knee was getting painful as well which led to difficulty in ambulation. He reports of generalized fatigue and weakness. He denies fever or chills. On presentation to the ED, he was afebrile, normotensive and saturating well on room air. No leukocytosis present, CMP revealed serum sodium of 128, BUN/creatinine of 42/1.93. Knee x-ray was done which did not show any acute finding. Patient was referred for admission. Updated Medication List Medication Instructions Recorded Confirmed Type atorvastatin 40 mg tablet 40 mg PO QAM #30 tabs 02/07/20 01/28/24 Rx insulin NPH isoph U-100 human 100 0 unit subcut QAM 08/07/21 01/28/24 History unit/mL subcutaneous suspension (Novolin N NPH U-100 Insulin isophane) lisinopril 5 mg tablet 5 mg PO DAILY 01/18/22 01/28/24 History metoprolol succinate 25 mg 25 mg PO DAILY 01/18/22 01/28/24 History tablet,extended release 24 hr linezolid 600 mg tablet 600 mg PO BID 14 days #28 tabs 01/31/24 Rx Hospital Stay Data Consultations 01/28/24 12:58 ED Decision to Admit Stat 01/28/24 13:55 Consult Orthopedic Surgery Routine 01/29/24 08:56 Consult Vascular Surgery Routine 01/29/24 08:58 Consult Nephrology Routine 01/29/24 09:02 Consult Infectious Diseases Routine 01/29/24 16:02 Consult Vascular Surgery Routine Diagnostic Imagining Performed 01/28/24 13:52 CT leg [CT tib/fib LT wo con] Stat 01/29/24 10:08 US arterial duplex LE LT Routine
--- NOTE | 2024-02-01 16:22 | Hospitalist Progress Note ---
Date of Service February 01, 2024 Assessment & Plan (1) Leg wound, left: (2) Left leg cellulitis: Plan: (1) Leg wound, left: (2) Left leg cellulitis: Plan: (1) Leg wound, left: Plan: Per admitting service notes with addendum: Patient is a 68-year-old male with Past medical history of type 1 diabetes mellitus complicated by bilateral peripheral neuropathy, CAD status post CABG x 3, hyperlipidemia, right ankle abscess status post BKA in [facility] in May 2022 Presents with progressive left leg wound Left leg wound, cellulitis Left knee pain, septic arthritisRuled out Patient presents with left leg wound with progressive redness for 2 weeks. [id number] History of right-sided BKA for septic arthritis/osteomyelitis. X-ray kneeno acute finding No leukocytosis Started on Daptomycin and Zosyn. Obtain blood cx Obtain CT of the leg to rule out underlying abscess. Might need MRI depending on the results. Will obtain orthopedic consultation given left knee pain to rule out septic arthritis. wound care consult 01/27 CT lower extremity, left: Positive cellulitis but no abscess, fluid collection or osteomyelitis Blood cultures: Pending Doppler ultrasound, arterial, left lower extremity: Positive high-grade stenosis popliteal artery Orthopedic service consulted, does not feel patient has septic arthritis Continue daptomycin plus Zosyn Consult ID Consult vascular surgery 01/29 Improving clinically Blood cultures negative so far Evaluated by vascular surgery, no further intervention at this point, patient has adequate perfusion for wound healing at this point ID recommendations noted, will DC Zosyn, continue with daptomycin, plan to transition to linezolid PO upon discharge 01/30 continues to improve 01/31 Wound, cellulitis continue to improve Continue IV antibiotics Monitor closely (2) Acute kidney injury: (3) Hyponatremia: Plan: BMP on admission shows creatinine of 1.93 and sodium of 128 Last creatinine was 1.19 in May 2022 Will start on IV fluids BMP daily Avoid nephrotoxic agent. 01/28 Creatinine 2.0 Urinalysis: Positive for hyaline cast, protein Hold lisinopril Continue IV fluids Nephrology service consulted 01/29 crea improved to 1.6 Continue with IV NSS 01/30 crea still at 1.6 d/c IV fluids HTN Hydralazine added Metoprolol increased Amlodipine also started this admission monitor closely 01/31 Metoprolol changed to carvedilol 12.5 mg p.o. twice daily Hydralazine increased to 25 mg 3 times daily Amlodipine continued Monitor closely Chronic conditions; Type 2 diabetes mellitus status - on insulin NPH at home; started on Lantus and glargine. History of CAD status post CABG status on Lipitor, currently on hold as patient is on daptomycin. Not on aspirin. Hypertension As needed hydralazine IV Continue metoprolol Full code DVT prophylaxisSCDs; Start heparin TID Disposition PT OT evaluation Otherwise lives at home Admission and Anticipated Discharge Date Admission Date: January 28, 2024 Subjective Follow-up for left lower leg wound infection, cellulitis, etc. Seen resting in bed, sleeping but easily awakened States he feels improving overall Left leg pain improving No headache, chest pain, palpitations, dizziness, shortness of breath No other symptoms Review of Systems Review of Systems: all noted and negative except for above Physical Exam Physical Exam: General- oriented x 3, not in distress, speaks in sentences with no effort or accessory muscle use Eyes- anicteric Neck- no JVD Lungs- clear breath sounds bilaterally, no rales/wheezes Heart- normal rate, regular rhythm; no murmurs Abdomen- normal bowel sounds, nondistended, soft, nontender Extremities- no pretibial edema, no calf tenderness Left lower extremity, left lower leg: Minimal erythema, no warmth, no tenderness Wound healing well Neuro- alert, oriented x 3; no gross focal neurologic deficits Skin- warm & dry Results & Data Results & Data Vital Signs (Past 12 Hours) Vital Signs Temp Pulse Pulse Resp BP Pulse Ox O2 Del Method 02/01/24 15:22 36.6 C 76 18 137/70 98 Room Air 02/01/24 11:32 36.7 C 55 L 18 127/76 98 Room Air 02/01/24 08:18 36.4 C L 82 18 195/90 H 98 Room Air 02/01/24 08:18 69 02/01/24 07:21 Room Air (1) Leg wound, left Encounter type: initial encounter Qualified Code(s): S81.802A - Unspecified o pen wound, left lower leg, initial encounter
--- NOTE | 2024-02-02 09:44 | Pharmacy Report ---
Pharmacy Glycemic Short Note 2 - Date of Service February 02, 2024 - Glycemic Short BSG Results (Last 24 hours): 02/01/24 02/01/24 02/01/24 11:58 16:59 20:09 POC Glucose 222 H 182 H 137 H 02/02/24 07:49 POC Glucose 164 H OUTPATIENT ANTIDIABETIC REGIMEN: * NPH -- pt states that he uses a sliding scale but is unsure of dose(s); question compliance * In the past, pt was using 15 units SQ BID, per outpt records * HbA1c: 7.2% (01/29/24) ASSESSMENT: 02/02/24 * Sumeet received 52 units of insulin yesterday (16 were basal, 36 bolus) * Fasting BSG slightly above goal but acceptable, will increase NPH slightly for additional prandial coverage and for a more balanced basal/bolus regimen (currently currently about 70% bolus) * BSGs climb throughout the day, tightening carbohydrate coverage slightly 02/01/24 * Sumeet received 57 units of insulin yesterday (14 were basal) * Fasting BSG within goal range, Lantus converted to NPH based on CDE recommendation, basal insulin increased 25% yesterday, continue * Carbohydrate ratio tightened slightly yesterday, hesitant to be too aggressive given additional prandial coverage with basal insulin switch to NPH. Will continue to trend. * NATHAN improving, continues on daptomycin 01/30/24 * Sumeet received 31 units of SC insulin yesterday with majority of BSGs above goal * 10 units Lantus + 21 units bolus * BSGs: 94, 218, 218, 176 mg/dL * Fasting BSG is trending upward. Will increase basal insulin. Conservative increase secondary to NATHAN (although Scr improving) and reported T1DM. * Will tighten carb coverage due to post prandial BSG elevation. 01/29/24 * Pt's BSGs have been labile since admission. Pt was very hyperglycemic pre- dinner (BSG 331 mg/dL, likely d/t uncovered lunch). BSGs dropped significantly overnight and were below goal this morning (BSG 94mg/dL). * Suspect that the drop in BSG from 331 --> 94 mg/dL overnight due in part to patient receiving excess Novolog with dinner coverage (21 units vs 12 units per insulin calculator). * Basal insulin held this morning until lunch-time BSG could be evaluated. As pre-lunch BSG was elevated, will resume Lantus this evening. * Pt is likely to continue with labile BSGs d/t renal function (SCr 2.06). Will need to make adjustments cautiously, as changes will not be reflected quickly and pt is at risk for insulin-stacking. 01/28/24 * Mr Jean is a 68yo diabetic M admitted with a leg infection/?abscess. * He is currently receiving daptomycin and Zosyn and is NPO w/ a pending surgical consult. * SQ basal/bolus insulin regimen initiated on admission, conservatively to start * Pharmacy will continue to follow and adjust regimen as indicated. PLAN FOR INPATIENT GLYCEMIC CONTROL: * Hold outpatient oral diabetes medications * Basal insulin * Insulin NPH 10 units SQ BIDM * Bolus insulin * NovoLog per scale ACHS or Q6hrs while NPO * Goal Range: Low 120 mg/dL - High 150 mg/dL * Correction Factor: 20 mg/dL/unit * Nutritional / Prandial insulin per carb ratio of 1 unit per 5 grams CHO consumed
--- NOTE | 2024-02-02 12:08 | Orthopedic Progress Note ---
Date of Service February 02, 2024 Assessment & Plan (1) Left leg cellulitis: Plan: 68-year-old gentleman with multiple medical comorbidities with left lower extremity cellulitis along with multiple wounds in various stages of healing. There is no signs of infected/septic arthritis. The also I did not have any signs of abscess or an infected prepatellar bursa. I clearly had some cellulitis which has been slow to improve. I do not think his vascular status in his leg is optimal by any means but apparently has been evaluated by vascular surgery and feel is adequate. There is no surgical indication from our standpoint. He is clinically improving. He will need continued antibiotic management. Organ to sign off for now. Any further questions can be directly [phone] Admission and Anticipated Discharge Date Admission Date: January 28, 2024 Subjective 68-year-old gentleman with multiple medical comorbidities admitted with left lower extremity cellulitis with a history of a right leg amputation due to abscess in the past. He is doing significantly better clinically. He is having much less pain. Has had multiple imaging studies. No new complaints. His pain is markedly improved. Physical Exam Physical Exam: Physical exam shows a pleasant middle-age male. He is lying in bed looks pretty comfortable. Examination left leg reveals the redness around the proximal brumfield area to be slightly improved. It is much less tender and. He had no second knee effusion. Range of motion 0 to 90 degrees without much pain. He is got multiple wounds on his leg in various stages of healing up. He is neurologically intact. No signs of abscess. Results & Data Vital Signs (Past 12 Hours) Vital Signs Temp Pulse Pulse Resp BP BP Pulse Ox 02/02/24 08:10 80 02/02/24 07:38 36.8 C 81 20 158/81 H 96 02/02/24 01:58 37.1 C 82 16 133/71 97 O2 Del Method 02/02/24 08:10 02/02/24 07:38 Room Air 02/02/24 01:58 Room Air
--- NOTE | 2024-02-02 14:04 | Discharge Summary ---
Discharge Summary Date of Service February 02, 2024 delayed entry date of service noted above Principal Dx & Hospital Course #1 = Principal Diagnosis (1) Leg wound, left: (2) Left leg cellulitis: (1) Leg wound, left: (2) Left leg cellulitis: Plan: (1) Leg wound, left: Plan: Per admitting service notes with addendum: Patient is a 68-year-old male with Past medical history of type 1 diabetes me llitus complicated by bilateral peripheral neuropathy, CAD status post CABG x 3, hyperlipidemia, right ankle abscess status post BKA in [facility] in May 2022 Presents with progressive left leg wound Left leg wound, cellulitis Left knee pain, septic arthritisRuled out Patient presents with left leg wound with progressive redness for 2 weeks. [id number] History of right-sided BKA for septic arthritis/osteomyelitis. X-ray kneeno acute finding No leukocytosis 01/27 CT lower extremity, left: Positive cellulitis but no abscess, fluid collection or osteomyelitis Blood cultures: Negative Doppler ultrasound, arterial, left lower extremity: Positive high-grade stenosis popliteal artery Orthopedic service consulted, does not feel patient has septic arthritis Evaluated by vascular surgery, no further intervention at this point, patient has adequate perfusion for wound healing at this point ID recommendations noted, ELLEN Zosyn, continue with daptomycin, plan to transition to linezolid PO upon discharge Wound, cellulitis continue to improve discharge home on Linezolid BID to complete 14 day course repeat CBC after completing course of Linezolid (2) Acute kidney injury: (3) Hyponatremia: Plan: BMP on admission shows creatinine of 1.93 and sodium of 128 Last creatinine was 1.19 in May 2022 Urinalysis: Positive for hyaline cast, protein d/c lisinopril given IV fluids Nephrology service consulted crea improved to 1.6--> plateaued repeat BMP on ff up with PCP close outpatient ff up HTN uncontrolled BP up to systolic 180s Hydralazine added Metoprolol increased Amlodipine also started this admission d/c plan: Metoprolol changed to carvedilol 12.5 mg p.o. twice daily Hydralazine increased to 25 mg 3 times daily Amlodipine 5mg po daily Monitor closely Type 2 diabetes mellitus status - on insulin NPH at home History of CAD status post CABG status on Lipitor, currently on hold as patient is on daptomycin. Not on aspirin. - start ASA 81mg po daily once BP stable PCP ff up in 1 week Nephro ff up in 2 weeks Notes For Next Care Provider - start ASA 81mg po daily once BP stable Medication Changes From Visit Linezolid-antibiotic for lower leg cellulitis Carvedilol, hydralazine, amlodipine-for control of high blood pressure Please take a probiotic daily for at least 6 weeks. RenewLife Brand recommended. Please drink plenty of water every day. Admission HPI Per Admitting Provider History obtained from chart review and interview with patient, patient's Past medical history of type 1 diabetes mellitus complicated by bilateral peripheral neuropathy, CAD status post CABG x 3, hyperlipidemia, right ankle ab scess status post BKA in [facility] in May 2022 Last confinement in May 2022 for right leg wound; required transfer out to [facility] for BKA. Patient reports that he sustained a wound on his left leg just above the ankle 2 weeks ago. He noticed increasing redness and swelling on his leg going up to his knees. He noticed that his knee was getting painful as well which led to difficulty in ambulation. He reports of generalized fatigue and weakness. He denies fever or chills. On presentation to the ED, he was afebrile, normotensive and saturating well on room air. No leukocytosis present, CMP revealed serum sodium of 128, BUN/creatinine of 42/1.93. Knee x-ray was done which did not show any acute finding. Patient was referred for admission. Admission Exam Per Admitting Provider On physical examination; Constitutional: Alert oriented x 3; not in distress. Respiratory: Bilateral vesicular breath sound. Cardiovascular: RRR, no murmur, no edema Vessels: no JVD or carotid bruit Chest: normal inspection of chest Abdomen: normal bowel sounds, soft, nontender, no hepatosplenomegaly Musculoskeletal: Open wound on left leg just above ankle on lateral aspect; redness surrounding the area tracking up to the knee. No knee swelling or erythema. ROM painful. Right leg- BKA. DP palpable in left foot. Neurologic: PERRL, EOMI, accommodation nl, no face palsy, no dysarthria CN's II- XI intact bilaterally and moves all extremities Psychiatric: A+Ox3, euthymic affect Discharge Exam General- oriented x 3, not in distress, speaks in sentences with no effort or accessory muscle use Eyes- anicteric Neck- no JVD Lungs- clear breath sounds bilaterally, no rales/wheezes Heart- normal rate, regular rhythm; no murmurs Abdomen- normal bowel sounds, nondistended, soft, nontender Extremities- no pretibial edema, no calf tenderness Left lower extremity, left lower leg: Minimal erythema, no warmth, no tenderness Wound healing well Neuro- alert, oriented x 3; no gross focal neurologic deficits Skin- warm & dry Updated Medication List Medication Instructions Recorded Confirmed Type atorvastatin 40 mg tablet 40 mg PO QAM #30 tabs 02/07/20 01/28/24 Rx insulin NPH isoph U-100 human 100 0 unit subcut QAM 08/07/21 01/28/24 History unit/mL subcutaneous suspension (Novolin N NPH U-100 Insulin isophane) amlodipine 5 mg tablet (Norvasc) 5 mg PO QAM 30 days #30 tabs 02/02/24 Rx carvedilol 12.5 mg tablet 12.5 mg PO BIDM 30 days #60 tabs 02/02/24 Rx hydralazine 25 mg tablet 25 mg PO TID 30 days #90 tabs 02/02/24 Rx linezolid 600 mg tablet 600 mg PO BID 10 days #20 tabs 02/02/24 Rx Hospital Stay Data Consultations 01/28/24 12:58 ED Decision to Admit Stat 01/28/24 13:55 Consult Orthopedic Surgery Routine 01/29/24 08:56 Consult Vascular Surgery Routine 01/29/24 08:58 Consult Nephrology Routine 01/29/24 09:02 Consult Infectious Diseases Routine 01/29/24 16:02 Consult Vascular Surgery Routine Diagnostic Imagining Performed Laboratory Results WBC 5.13 K/ul (4.8-10.8) 01/31/24 08:52 RBC 3.59 M/uL (4.70-6.10) L 01/31/24 08:52 Hgb 10.5 g/dl (14.0-18.0) L 01/31/24 08:52 Hct 31.5 % (42.0-52.0) L 01/31/24 08:52 MCV 87.7 fL (80.0-100.0) 01/31/24 08:52 MCH 29.2 pg (25.0-34.0) 01/31/24 08:52 MCHC 33.3 g/dL (32.0-36.0) 01/31/24 08:52 RDW Std Deviation 39.5 fL (36.4-46.3) 01/31/24 08:52 RDW Coeff of Mau 12.2 % (11.5-14.5) 01/31/24 08:52 Plt Count 184 K/uL (130-400) 01/31/24 08:52 MPV 9.3 fL (9.4-12.4) L 01/31/24 08:52 Immature Gran % (Auto) 0.6 % 01/31/24 08:52 Neut % (Auto) 69.9 % 01/31/24 08:52 Lymph % (Auto) 13.5 % 01/31/24 08:52 Murray % (Auto) 10.3 % 01/31/24 08:52 Eos % (Auto) 5.3 % 01/31/24 08:52 Baso % (Auto) 0.4 % 01/31/24 08:52 Neut # (Auto) 3.59 K/uL (1.40-6.50) 01/31/24 08:52 Lymph # (Auto) 0.69 K/uL (1.20-3.40) L 01/31/24 08:52 Murray # (Auto) 0.53 K/uL (0.11-0.59) 01/31/24 08:52 Eos # (Auto) 0.27 K/uL (0.00-0.50) 01/31/24 08:52 Baso # (Auto) 0.02 K/uL (0.00-0.20) 01/31/24 08:52 Immature Gran # (Auto) 0.03 K/uL (0.01-0.20) 01/31/24 08:52 ESR 108 mm/hr (0-20) H 01/28/24 11:49 Sodium 135 mmol/L (136-145) L 02/01/24 07:58 Potassium 5.0 mmol/L (3.5-5.1) 02/01/24 07:58 Chloride 104 mmol/L (98-107) 02/01/24 07:58 Carbon Dioxide 25 mmol/L (21-32) 02/01/24 07:58 Anion Gap 6 (3-11) 02/01/24 07:58 BUN 28 mg/dl (6-23) H 02/01/24 07:58 Creatinine 1.44 mg/dl (0.6-1.4) H 02/01/24 07:58 Est Cr Clr Drug Dosing 60.1 ml/min 02/01/24 07:58 Est GFR ( Amer) 57.8 ml/min 02/01/24 07:58 Est GFR (Non-Af Amer) 49.9 ml/min 02/01/24 07:58 BUN/Creatinine Ratio 19.4 (10-20) 02/01/24 07:58 Glucose 145 mg/dl (70-99(Fasting)) H 02/01/24 07:58 POC Glucose 233 mg/dl (70-99) H 02/02/24 11:56 Estimat Average Glucose 160 mg/dl 01/29/24 05:43 Hemoglobin A1c 7.2 % (4.5-5.6) H 01/29/24 05:43 Calcium 9.6 mg/dl (8.6-10.3) 02/01/24 07:58 Total Bilirubin 0.4 mg/dl (0.2-1.0) 01/28/24 11:49 AST 24 U/L (13-39) 01/28/24 11:49 ALT 23 U/L (7-52) 01/28/24 11:49 Alkaline Phosphatase 93 U/L (34-104) 01/28/24 11:49 Total Creatine Kinase 208 U/L (30-223) 01/28/24 11:49 C-Reactive Protein 25.97 mg/dl (0-0.5) H 01/28/24 11:49 Total Protein 8.4 gm/dl (6.0-8.3) H 01/28/24 11:49 Albumin 3.9 gm/dl (3.4-5.0) 01/28/24 11:49 Globulin 4.5 gm/dl (2.5-4.0) H 01/28/24 11:49 Albumin/Globulin Ratio 0.9 (0.9-2) 01/28/24 11:49 Lipase 15 U/L (11-82) 01/28/24 11:49 Urine Color Yellow 01/28/24 Unknown Urine Appearance Clear (Clear) 01/28/24 Unknown Urine pH 5.5 (4.5-7.5) 01/28/24 Unknown Ur Specific [place] 1.015 (1.000-1.030) 01/28/24 Unknown Urine Protein 3+ (Negative) H 01/28/24 Unknown Urine Glucose (UA) Trace (Negative) H 01/28/24 Unknown Urine Ketones Trace (Negative) H 01/28/24 Unknown Urine Blood Negative (Negative) 01/28/24 Unknown Urine Nitrite Negative (Negative) 01/28/24 Unknown Urine Bilirubin Negative (Negative) 01/28/24 Unknown Urine Urobilinogen Negative (Negative) 01/28/24 Unknown Ur Leukocyte Esterase Negative (Negative) 01/28/24 Unknown Urine WBC (Auto) 0-5 /hpf (0-5) 01/28/24 Unknown Urine RBC (Auto) 0-2 /hpf (0-2) 01/28/24 Unknown U Hyaline Cast (Auto) 6-10 /lpf (0-2) H 01/28/24 Unknown U Epithel Cells (Auto) 0-2 /hpf (0-2) 01/28/24 Unknown Urine Bacteria (Auto) None Seen (None Seen) 01/28/24 Unknown Adenovirus (PCR) Not Detected (NotDetected) 01/29/24 10:19 B. pertussis DNA (PCR) Not Detected (NotDetected) 01/29/24 10:19 B.parapertussis DNA PCR Not Detected (NotDetected) 01/29/24 10:19 C. pneumoniae DNA (PCR) Not Detected (NotDetected) 01/29/24 10:19 Coronavirus OC43 (PCR) Not Detected (NotDetected) 01/29/24 10:19 Coronavirus HKU1 (PCR) Not Detected (NotDetected) 01/29/24 10:19 Coronavirus 229E (PCR) Not Detected (NotDetected) 01/29/24 10:19 SARS-CoV-2 (PCR) Not Detected (NotDetected) 01/29/24 10:19 Coronavirus NL63 (PCR) Not Detected (NotDetected) 01/29/24 10:19 Human Metapneumovir PCR Not Detected (NotDetected) 01/29/24 10:19 Influenza Type A (PCR) Not Detected (NotDetected) 01/29/24 10:19 Influenza Type B (PCR) Not Detected (NotDetected) 01/29/24 10:19 M. pneumoniae (PCR) Not Detected (NotDetected) 01/29/24 10:19 Parainfluenza 1 (PCR) Not Detected (NotDetected) 01/29/24 10:19 Parainfluenza 2 (PCR) Not Detected (NotDetected) 01/29/24 10:19 Parainfluenza 3 (PCR) Not Detected (NotDetected) 01/29/24 10:19 Parainfluenza 4 (PCR) Not Detected (NotDetected) 01/29/24 10:19 RSV (PCR) Not Detected (NotDetected) 01/29/24 10:19 Entero/Rhino (PCR) Not Detected (NotDetected) 01/29/24 10:19 Impressions Knee X-Ray 01/28/24 11:22 XR knee LT 3V CLINICAL HISTORY: l knee pain TECHNIQUE: 3 views of the left knee were obtained. Comparison: None available at the time of this dictation. FINDINGS: There is no evidence of an acute fracture. Joint spaces are well-preserved. No joint effusion is seen. No soft tissue abnormality is seen. IMPRESSION: No evidence of acute osseous injury. ACT 112: Negative or not required by law. Electronically signed by: Gordon Erazo M.D. 01/28/2024 12:[address] 01/28/24 13:52 LEFT TIBIA/FIBULA CT CT DOSE: 301.82 mGy.cm HISTORY: Left lower leg infection. Include Knee, Rule out underlying abscess TECHNIQUE: Multiaxial CT images of the left tibia/fibula were performed and reformatted in the sagittal and coronal plane without the use of contrast. A dose lowering technique was utilized adhering to the principles of ALARA. COMPARISON: Left knee radiograph 01/28/2024. FINDINGS: There is a partially visualized small left knee effusion. Skin thickening and subcutaneous edema seen throughout the left lower leg most pronounced anteriorly. No definite loculated fluid collections on this noncontrast study to suggest an abscess. No soft tissue gas or foreign bodies identified. Vascular calcifications are noted. No fracture or dislocation within the left tibia or fibula. No bony destructive changes to suggest an osteomyelitis. IMPRESSION: 1. Skin thickening and subcutaneous edema throughout the left lower leg. This may represent a cellulitis. 2. No loculated fluid collections on this noncontrast study to suggest an abscess. 3. No evidence for osteomyelitis. ACT 112: Negative or not required by law. Electronically signed by: Scar Calvert M.D. 01/28/2024 3:26 PM Duplex Scan Lower Extremity Artery 01/29/24 10:08 US arterial duplex left lower extremity CLINICAL HISTORY: Left lower extremity pain. COMPARISON STUDY: Lower extremity CTA 11/07/2021. Duplex ultrasound 02/03/2020. FINDINGS: The left ankle-brachial indices were unable to be calculated due to the noncompressible vessels. Normal waveforms seen within the left great toe. Biphasic to triphasic waveforms and normal velocities within the left common femoral and proximal to mid superficial femoral arteries. Scattered calcified plaque is seen throughout the left lower extremity arterial system. Borderline elevated peak systolic velocity within the distal left superficial femoral artery of 182 cm/s. Elevated peak systolic velocity within the mid left popliteal artery of 374 cm/s consistent with an area of stenosis. The distal left anterior tibial artery appears occluded. No significant stenosis or occlusion within the left posterior tibial or peroneal arteries. The dorsalis pedis artery also appears patent. IMPRESSION: 1. Focal high-grade stenosis within the mid left popliteal artery. 2. Borderline stenosis within the distal left superficial femoral artery. 3. The distal left anterior tibial artery is occluded. ACT 112: Negative or not required by law. Electronically signed by: Scar Calvert M.D. 01/29/2024 12:16 PM Discharge Instructions Given to Patient (Per Discharging Provider) PLEASE REFER TO YOUR NEW MEDICATION LIST AND FOLLOW INSTRUCTIONS CAREFULLY. YOUR NEW MEDICATIONS INCLUDE: Linezolid-antibiotic for lower leg cellulitis Carvedilol, hydralazine, amlodipine-for control of high blood pressure Please take a probiotic daily for at least 6 weeks. RenewLife Brand recommended. Please drink plenty of water every day. PLEASE CALL YOUR PRIMARY CARE PHYSICIAN OR RETURN TO THE ER IF WITH WORSENING OF SYMPTOMS, INCLUDING Increasing redness/pain/swelling/bleeding or discharge from wound, left lower leg, fevers or chills, nausea vomiting, diarrhea, Chest pain, palpitations, shortness of breath, dizziness, Headache etc. FOLLOW UP WITH PRIMARY CARE PHYSICIAN OUTLINED ABOVE. Total Time Total Time Spent Total Time Spent (In Minutes): 45 minutes
[2024-02-02] MEDS ORDERED: INSULIN HUMAN NPH SC SCH (17:00)
== END 2024-02-02 14:56 | disposition home or self-care (01) | DRG 300 ==
LOC: ED 11:03 → SUATTDRO 13:56 → EDINP 13:56 → 2N 17:37 → UNDODISIN 01-31 01:05
DX: Z86.16 Personal history of COVID-19; Z95.1 Presence of aortocoronary bypass graft; I70.248 Atherosclerosis of native arteries of left leg with ulceration of other part of lower leg; E87.1 Hypo-osmolality and hyponatremia; Z89.511 Acquired absence of right leg below knee; I25.10 Atherosclerotic heart disease of native coronary artery without angina pectoris; L97.821 Non-pressure chronic ulcer of other part of left lower leg limited to breakdown of skin; E78.5 Hyperlipidemia, unspecified; I25.2 Old myocardial infarction; Z79.4 Long term (current) use of insulin; Z11.52 Encounter for screening for COVID-19; E11.42 Type 2 diabetes mellitus with diabetic polyneuropathy; N17.9 Acute kidney failure, unspecified; E11.51 Type 2 diabetes mellitus with diabetic peripheral angiopathy without gangrene; Z79.899 Other long term (current) drug therapy; L03.116 Cellulitis of left lower limb